=== PATIENT | female | born 1930 | race Caucasian/White ===

== ENCOUNTER 2016-07-16 14:37 | Inpatient (IN) | payer MEDICARE, BC ==
[2016-07-16 15:16] LABS: Hematocrit 34 % (35-47); Hemoglobin 11.1 g/dl (12.0-16.0); Mean Corpuscular HGB Conc 33 g/dl (31-36); Mean Corpuscular Hemoglobin 29 pg (27-31); Mean Corpuscular Volume 89 fL (80-97); Mean Platelet Volume 8 um3 (7.4-10.4); Red Blood Count 3.82 10^6/ul (4.0-5.4); Red Cell Distribution Width 17 % (10.5-15)
[2016-07-16 15:36] LABS: Albumin 3.6 g/dL (3.2-5.2); EGFR African American 44.7 (>60); EGFR Non-African American 34.8 (>60); Globulin 2.8 g/dL (2-4); Potassium 4.4 mmol/L (3.5-5.0); Total Bilirubin 0.5 mg/dL (0.2-1.0); Total Protein 6.4 g/dL (6.4-8.9)
[2016-07-16 15:38] LABS: Troponin I 0.01 ng/mL (<0.04)
--- NOTE | 2016-07-16 15:58 | RAD ---
Indication: Chest pain. Atrial fibrillation. History of CHF and respiratory disease. Comparison: July 11, 2016 Technique: Upright AP 1530 hours Report: Rightward rotation noted. Elevated lung volumes and mild coarsening of the interstitial markings. Linear atelectasis at the LEFT lung base. No suspicious focal pulmonary lesion, pleural effusion, pneumothorax. Mild cardiomegaly. Unremarkable central pulmonary vasculature and mediastinal contours. Mildly tortuous descending thoracic aorta. Contour deformity most consistent with a healed fracture of the RIGHT fifth rib laterally. IMPRESSION: Stigmata of advanced chronic obstructive pulmonary disease. Mild LEFT basilar atelectasis. No evidence for pneumonia or pulmonary edema.
[2016-07-16 16:00] LABS: T4 6.79 g/dL (6.09-12.23)
[2016-07-16 16:01] LABS: TSH (Thyroid Stimulating Horm) 1.92 mcIU/mL (0.34-5.60)
[2016-07-16 16:04] LABS: Urine Bilirubin Negative (Negative); Urine Glucose Negative (Negative); Urine Nitrite Negative (Negative)
[2016-07-16] MEDS ORDERED: Warfarin TAB(*) 3 MG PO SCH (17:00)
[2016-07-16] MEDS ORDERED: Ondansetron INJ* 2 MG/ML VIAL IV PRN (17:15)
[2016-07-16] MEDS ORDERED: Acetaminophen TAB* 325 MG PO PRN (17:15)
[2016-07-16] MEDS ORDERED: LORazepam TAB(*) 0.5 MG PO PRN (17:28)
--- NOTE | 2016-07-16 17:37 | ED ---
Teja Xie Rebecca, scribed for Armando Espinoza MD on 07/16/16 at 1503 . HPI Chest Pain - HPI Summary HPI Summary: Pt is an 86 y/o F BIBA who presents to ED c/o CP. Pain began suddenly at 1345 today while sitting down. Pain has been constant since onset, decreasing in intensity. Pain is located in the upper sternum without radiation, currently ranked 3/10 and characterized as pressure. 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 Denies N/V, SOB or any other symptoms. Prior, similar episodes of CP. - History of Current Complaint Chief Complaint: EDChestPainROMI Hx Obtained From: Patient Onset/Duration: Started Hours Ago - 1.5 hours ago, Still Present Time of Onset: 13:45 Timing: Constant Initial Severity: Moderate Current Severity: Mild Pain Intensity: 3 Pain Scale Used: 0-10 Numeric Chest Pain Location: Upper Sternal Chest Pain Radiates: No Character: Pressure/Squeezing Aggravating Factor(s): Nothing Alleviating Factor(s): NTG 123, OTC Meds - 324 mg ASA Associated Signs and Symptoms: Positive: Chest Pain. Negative: Shortness of Breath, Nausea, Vomiting Related History: Similar Episode/Dx as: - Prior similar episodes - Additional Pertinent History Primary Care Physician: MANNY - Allergy/Home Medications Allergies/Adverse Reactions: Allergies Allergy/AdvReac Type Severity Reaction Status Date / Time Ciprofloxacin [From Cipro] Allergy Unknown Hives Verified 07/16/16 14:46 Codeine Allergy Unknown Hives Verified 07/16/16 14:46 Fentanyl Allergy Unknown Difficulty Verified 07/16/16 14:46 Breathing Penicillins [PCN] Allergy Unknown Hives Verified 07/16/16 14:46 Sulfamethoxazole AdvReac Intermediate Nausea Verified 07/16/16 14:46 w/Trimethoprim [From Bactrim] Home Medications: Home Medications Cholecalciferol [Vitamin D3] 400 unit PO BID 07/16/16 [History Confirmed ] Docusate CAP* [Colace Cap*] 100 - 200 mg PO DAILY 07/16/16 [History Confirmed ] Ipratropium 0.5MG/2.5ML NEB* [Atrovent 0.5 MG NEB.LOKESH*] 0.5 mg INH Q4H PRN 07/16 [History Confirmed 07/16/16] Magnesium [Essential Magnesium] 250 mg PO DAILY 07/16/16 [History Confirmed 10/27] Nitroglycerin TAB 0.4 MG* 0.4 mg SL Q5M PRN 07/16/16 [History Confirmed 07/16/16 ] PMH/Surg Hx/FS Hx/Imm Hx Endocrine/Hematology History: Reports: Hx Anticoagulant Therapy - coumadin for a fib, Hx Blood Disorders - chronic thrombocytopenia, Hx Thyroid Disease - HYPO , Hx Anemia - HX OF Denies: Hx Diabetes Cardiovascular History: Reports: Hx Angina, Hx Congestive Heart Failure, Hx Hypercholesterolemia, Hx Hypertension - WELL CONTROLLED, Other Cardiovascular Problems/Disorders - AFIB Denies: Hx Deep Vein Thrombosis, Hx Pacemaker/ICD Respiratory History: Reports: Hx Asthma, Hx Chronic Obstructive Pulmonary Disease (COPD), Hx Pneumonia - Hospitalized from 10/14/14 - 10/25/14 and 04/26, Hx Seasonal Allergies, Other Respiratory Problems/Disorders - BILAT PNEUMONIA . PT WITH TB 1994 GI History: Reports: Hx Gall Bladder Disease - cholecystectomy 1976, Hx Gastroesophageal Reflux Disease, Hx Ulcer - GASTRIC 1972, Other GI Disorders - partial gastrectomy 1972 History: Reports: Other Problems/Disorders - hysterectomy breast biopsy left Denies: Hx Renal Disease Musculoskeletal History: Reports: Hx Arthritis - BACK, KNEES, Hx Back Problems - laminectomy, Hx Orthopedic Injury - hx r arm, r ankle, toes, Other Musculoskeletal History - back surgery 1995 Sensory History: Reports: Hx Cataracts - removed, Hx Contacts or Glasses Denies: Hx Hearing Aid, Other Sensory Impairments Opthamlomology History: Reports: Hx Cataracts - removed, Hx Contacts or Glasses Denies: Other Sensory Impairments Neurological History: Reports: Other Neuro Impairments/Disorders - PERIPHERAL NEUROPATHY BILAT, PAIN CLINIC PATIENT Psychiatric History: Reports: Hx Anxiety, Hx Depression Denies: Hx Panic Disorder, Hx Suicide Attempt, Hx of Violent Episodes Against Others - Cancer History Cancer Type, Location and Year: breast lumpectomy, no treatment Hx Chemotherapy: No Hx Radiation Therapy: No - Surgical History Surgery Procedure, Year, and Place: T&A A CHILD. groin abscess A CHILD. appendectomy. hysterectomy partial. gastrectomy partial 1972; Carpal Tunnel Surgery Right Wrist by Dr. Chauhan in July 2015. LUMBAR SURGERY 1996. BILAT CATARACTS. open ruel. partial thyroidectomy. right lung bx. right lymph node bx. left leg surgery- vein 2003 [facility] [place]. Left Breast lumpectomy 1982 Hx Anesthesia Reactions: No - Immunization History Date of Tetanus Vaccine: 2013 Date of Influenza Vaccine: Fall 2012 Infectious Disease History: No Infectious Disease History: Reports: Hx Tuberculosis - 1990s, per pt Denies: Hx Hepatitis, Hx Human Immunodeficiency Virus (HIV), Traveled Outside the [place] in Last 30 Days - Family History Known Family History: Positive: Cardiac Disease - Social History Alcohol Use: Rare Hx Substance Use: No Substance Use Type: Reports: None Substance Use Comment - Amount & Last Used: oxycodone and oxymorphone Hx Tobacco Use: Yes Smoking Status (MU): Former Smoker Type: Cigarettes Length of Time of Smoking/Using Tobacco: ON AND OFF 40+YRS Have You Smoked in the Last Year: No Review of Systems Positive: Chest Pain - upper sternal Negative: Shortness Of Breath Negative: Vomiting, Nausea All Other Systems Reviewed And Are Negative: Yes Physical Exam - Summary Physical Exam Summary: VITAL SIGNS: Reviewed. GENERAL: Patient is a well developed and nourished female who is lying comfortable in the stretcher. Patient is not in any acute respiratory distress. HEAD AND FACE: No signs of trauma. No ecchymosis, hematomas or skull depressions. No sinus tenderness. EYES: PERRLA, EOMI x 2, No injected conjunctiva, no nystagmus. EARS: Hearing grossly intact. Ear canals and tympanic membranes are within normal limits. MOUTH: Oropharynx within normal limits. NECK: Supple, trachea is midline, no adenopathy, no JVD, no carotid bruit, no c- spine tenderness, neck with full ROM. CHEST: Symmetric, no tenderness at palpation LUNGS: Clear to auscultation bilaterally. No wheezing or crackles. CVS: Regular rate and rhythm, S1 and S2 present, no murmurs or gallops appreciated. ABDOMEN: Soft, non-tender. No signs of distention. No rebound no guarding, and no masses palpated. Bowel sounds are normal. EXTREMITIES: FROM in all major joints, no edema, no cyanosis or clubbing. NEURO: Alert and oriented x 3. No acute neurological deficits. Speech is normal and follows commands. SKIN: Dry and warm Vital Signs On Initial Exam: Initial Vitals Temp Pulse Resp BP Pulse Ox 98.0 F 65 20 123/60 96 07/16/16 14:46 07/16/16 14:46 07/16/16 14:46 07/16/16 14:46 07/16/16 14:46 Diagnostics - Vital Signs Vital Signs Temp Pulse Resp BP Pulse Ox 07/16/16 14:46 98.0 F 65 20 123/60 96 - Laboratory Lab Results: Lab Results 07/16/16 07/16/16 07/16/16 Range/Units 14:55 14:55 14:55 WBC 5.0 (3.5-10.8) 10^3/ul RBC 3.82 L (4.0-5.4) 10^6/ul Hgb 11.1 L (12.0-16.0) g/dl Hct 34 L (35-47) % MCV 89 (80-97) fL MCH 29 (27-31) pg MCHC 33 (31-36) g/dl RDW 17 H (10.5-15) % Plt Count 176 (150-450) 10^3/ul MPV 8 (7.4-10.4) um3 Neut % (Auto) 73.7 (38-83) % Lymph % (Auto) 17.3 L (25-47) % Cavalier % (Auto) 6.2 (1-9) % Eos % (Auto) 1.0 (0-6) % Baso % (Auto) 1.8 (0-2) % Absolute Neuts (auto) 3.7 (1.5-7.7) 10^3/ul Absolute Lymphs (auto) 0.9 L (1.0-4.8) 10^3/ul Absolute Monos (auto) 0.3 (0-0.8) 10^3/ul Absolute Eos (auto) 0.1 (0-0.6) 10^3/ul Absolute Basos (auto) 0.1 (0-0.2) 10^3/ul Absolute Nucleated RBC 0 10^3/ul Nucleated RBC % 0.1 Sodium 138 (133-145) mmol/L Potassium 4.4 (3.5-5.0) mmol/L Chloride 104 (101-111) mmol/L Carbon Dioxide 32 (22-32) mmol/L Anion Gap 2 (2-11) mmol/L BUN 40 H (6-24) mg/dL Creatinine 1.43 H (0.51-0.95) mg/dL Est GFR ( Amer) 44.7 (>60) Est GFR (Non-Af Amer) 34.8 (>60) BUN/Creatinine Ratio 28.0 H (8-20) Glucose 148 H (70-100) mg/dL Lactic Acid 1.5 (0.5-2.0) mmol/L Calcium 9.0 (8.6-10.3) mg/dL Total Bilirubin 0.50 (0.2-1.0) mg/dL AST 14 (13-39) U/L ALT 11 (7-52) U/L Alkaline Phosphatase 100 (34-104) U/L Troponin I 0.01 (<0.04) ng/mL B-Natriuretic Peptide ( - 100) pg/mL Total Protein 6.4 (6.4-8.9) g/dL Albumin 3.6 (3.2-5.2) g/dL Globulin 2.8 (2-4) g/dL Albumin/Globulin Ratio 1.3 (1-3) TSH 1.92 (0.34-5.60) mcIU/mL Thyroxine (T4) 6.79 (6.09-12.23) g/dL Urine Color Urine Appearance Urine pH (5-9) Ur Specific [place] (1.010-1.030) Urine Protein (Negative) Urine Ketones (Negative) Urine Blood (Negative) Urine Nitrate (Negative) Urine Bilirubin (Negative) Urine Urobilinogen (Negative) Ur Leukocyte Esterase (Negative) Urine Glucose (Negative) 07/16/16 07/16/16 Range/Units 14:55 15:49 WBC (3.5-10.8) 10^3/ul RBC (4.0-5.4) 10^6/ul Hgb (12.0-16.0) g/dl Hct (35-47) % MCV (80-97) fL MCH (27-31) pg MCHC (31-36) g/dl RDW (10.5-15) % Plt Count (150-450) 10^3/ul MPV (7.4-10.4) um3 Neut % (Auto) (38-83) % Lymph % (Auto) (25-47) % Cavalier % (Auto) (1-9) % Eos % (Auto) (0-6) % Baso % (Auto) (0-2) % Absolute Neuts (auto) (1.5-7.7) 10^3/ul Absolute Lymphs (auto) (1.0-4.8) 10^3/ul Absolute Monos (auto) (0-0.8) 10^3/ul Absolute Eos (auto) (0-0.6) 10^3/ul Absolute Basos (auto) (0-0.2) 10^3/ul Absolute Nucleated RBC 10^3/ul Nucleated RBC % Sodium (133-145) mmol/L Potassium (3.5-5.0) mmol/L Chloride (101-111) mmol/L Carbon Dioxide (22-32) mmol/L Anion Gap (2-11) mmol/L BUN (6-24) mg/dL Creatinine (0.51-0.95) mg/dL Est GFR ( Amer) (>60) Est GFR (Non-Af Amer) (>60) BUN/Creatinine Ratio (8-20) Glucose (70-100) mg/dL Lactic Acid (0.5-2.0) mmol/L Calcium (8.6-10.3) mg/dL Total Bilirubin (0.2-1.0) mg/dL AST (13-39) U/L ALT (7-52) U/L Alkaline Phosphatase (34-104) U/L Troponin I (<0.04) ng/mL B-Natriuretic Peptide 433 H ( - 100) pg/mL Total Protein (6.4-8.9) g/dL Albumin (3.2-5.2) g/dL Globulin (2-4) g/dL Albumin/Globulin Ratio (1-3) TSH (0.34-5.60) mcIU/mL Thyroxine (T4) (6.09-12.23) g/dL Urine Color Straw Urine Appearance Clear Urine pH 5.0 (5-9) Ur Specific [place] 1.008 L (1.010-1.030) Urine Protein Negative (Negative) Urine Ketones Negative (Negative) Urine Blood Negative (Negative) Urine Nitrate Negative (Negative) Urine Bilirubin Negative (Negative) Urine Urobilinogen Negative (Negative) Ur Leukocyte Esterase Negative (Negative) Urine Glucose Negative (Negative) Result Diagrams: 07/16/16 14:55 07/16/16 14:55 Lab Statement: Any lab studies that have been ordered have been reviewed, and results considered in the medical decision making process. - Radiology CXR Radiology Interpretation Completed By: Radiologist - Stigmata of advanced chronic obstructive pulmonary disease. Mild LEFT basilar atelectasis. No evidence for pneumonia or pulmonary edema. - EKG 1447 Cardiac Rate: NL - 65 bpm EKG Rhythm: Atrial Fibrillation - [address] Segment: Normal - No ST elevation Chest Pain Course/Dx - Course Assessment/Plan: 86 y/o F present to ED with a CC of having CP. Reports CP as pressure and denies N/V and diaphoresis. Not exacerbated by exertion. Blood work within normal limits except increased BUN and creatinine. Troponin is negative too. EKG shows an atrial fibrillation with rate controlled. Due to her complicated Hx, I disclosed my findings with Dr. Steven to r/o acute cardiac syndrome. Pt is hemodynamically stable and AxO x3. - Chest Pain Differential Diagnosis/HQI/PQRI: ACS, Angina, Chest Wall - Diagnoses Provider Diagnoses: Chest pain r/o ACS - Provider Notifications Discussed Care Of Patient With: Dr. Steven, hospitalist, who agrees to admit pt. Time Discussed With Above Provider: 16:17 Discharge - Discharge Plan Condition: Stable Disposition: ADMITTED TO [facility] documentation as recorded by the Teja lynne Rebecca accurately reflects the service I personally performed and the decisions made by me, Armando Espinoza MD.
[2016-07-16] MEDS: Nitroglycerin 2% OINT* 1 GM PAK TOPICAL SCH (19:55)
--- NOTE | 2016-07-16 20:25 | PN ---
Hospitalist Progress Note called at 191 for elevated trop, ekg ordere stable compared to prio to st changes, patient not reporting chest pain to RN, 1929 discussed case with cardiology, plan for no hep gtt, on asa beta and statin already, will order echo and plan for cath, pt npo after midnight, 1934 to patient bedside to discuss plan of care, lungs cta, heart sounds s1 s2, RRR, patient states she has some discomfort in her left chest, nitro paste ordered and then applied at 1944, pt re-examined at 1999 pt awoken from sleep and states that the pain is now gone, instructed supervisor in charge and bedside RN to call with any chest pain, will sign out case to covering red CLAY for 2099, will continue nitro paste,
[2016-07-16] MEDS: Simethicone TAB* 80 MG TAB.CHEW PO SCH ×2 (20:44→21:07)
[2016-07-16] MEDS: Omeprazole CAP* 20 MG PO SCH (20:45)
[2016-07-16] MEDS: Pregabalin CAP(*) 25 MG PO SCH (20:46)
[2016-07-16] MEDS: OXYMORPHONE PO SCH (20:54)
[2016-07-16] MEDS ORDERED: Atorvastatin* 40 MG TAB PO SCH (21:00)
[2016-07-16] MEDS: oxyCODONE TAB* 5 MG TAB PO PRN (21:14)
--- NOTE | 2016-07-16 22:34 | HP ---
HISTORY AND PHYSICAL: DATE OF ADMISSION: 07/16/16 ADDENDUM: Ms. Saldana is an 86-year-old female with history of chronic pain and atrial fibrillation, on Coumadin who presents complaining of chest pain. Her initial workup includes negative troponin and an unremarkable EKG. The patient is going to be placed on overnight observation and most likely stress test in the morning. For further details of the patient's presentation and plan, please see history and physical dictated by David Estes NP, on 07/16/16, with which I agree. [id number]/[facility] #: [id number]
--- NOTE | 2016-07-16 22:51 | HP ---
HISTORY AND PHYSICAL: DATE OF ADMISSION: 07/16/16 PRIMARY CARE PROVIDER: Dr. Thompson ATTENDING PHYSICIAN WHILE IN THE HOSPITAL: Dr. Becky Steven* (report being dictated by Asael Estes NP). CHIEF COMPLAINT: Chest pain. HISTORY OF PRESENT ILLNESS: Ms. Saldana is an 86-year-old female patient, who has a history of AFib and COPD. She wears O2 at night, history of chronic pain , hypothyroidism, CHF, last EF 55%. 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 She comes into the ER today stating that she was at Dr. Chauhan's office for evaluation of carpal tunnel procedure and while she was sitting in the waiting room, she developed a sudden onset of chest pain across the top front of her chest. She says the pain was constant in nature. She was unable to characterize the pain. She says she had not been having chest discomfort leading up to this and to her knowledge, she had been doing well. She could exert and not get chest pain. The pain today was nonexertional. Her name was being called and her friend went up and said that she was having chest discomfort, so she came into the ER. She said the pain was alleviated after nitro here in the ER and when O2 was placed. She denies having any associated symptoms such as diaphoresis, shortness of breath, or nausea. She says the pain did go up into her jaw, but did not go down her arm and she said the pain was constant in nature. It started around 2 o'clock this afternoon. The patient came into the ER after being sent here by Dr. Chauhan and her office staff via EMS. She was evaluated and there was concern that this could represent acute coronary syndrome. She does admit to having a recent travel. She traveled down to [place] for her holidays. She said she has bilateral leg pain, but this is chronic and constant. She denies having any worsening swelling. She says that she has not had any recent URI symptoms, but because of the concern for ACS, hospitalist service was asked to evaluate for admission. PAST MEDICAL HISTORY: Significant for: 1. AFib. 2. COPD, on 2 L at night. 3. Chronic pain. 4. Hypothyroidism. 5. CHF, diastolic, last EF 55%. 6. Thrombocytopenia in the past. 7. Neuropathy. 8. Hypertension. 9. History of CAD. Last cath in 2010 showed a 50% noncritical stenosis at the proximal segment of the LAD. PAST SURGICAL HISTORY: 1. She has had a partial gastrectomy. 2. Partial thyroidectomy. 3. Laparoscopic cholecystectomy. 4. Laminectomy. 5. Carpal tunnel. 6. Cardiac catheterization with noncritical CAD. HOME MEDICATIONS: According to the list in the computer, we are updating this now as we do not have an accurate list included: 1. Oxycodone 15 mg every 4 hours as needed. 2. Warfarin 1.5 mg every 72 hours. 3. Warfarin 3 mg p.o. every other day. 4. Spiriva 1 capsule inhaled daily. 5. Aldactone 25 mg p.o. daily. 6. Simethicone 80 mg p.o. daily. 7. Actonel 35 mg weekly. 8. Lyrica 25 mg p.o. 4 times a day. 9. Opana 15 mg p.o. every 12 hours. 10. Prilosec 40 mg p.o. b.i.d. 11. Nitro 0.4 mg sublingual q.5 minutes x3 p.r.n. chest pain. 12. Metoprolol 25 mg daily. 13. Linzess 290 mcg p.o. daily. 14. Synthroid 25 mcg p.o. daily. 15. Xopenex 2 puffs inhaled 4 times a day as needed. 16. Ativan 0.5 mg p.o. b.i.d. as needed. 17. Lasix 20 mg daily. 18. Diltiazem 120 mg p.o. daily. 19. Vitamin D3 1000 units p.o. daily. 20. Calcium 500 mg p.o. daily. 21. Symbicort 1 puff inhaled b.i.d. 22. Aspirin 81 mg daily. ALLERGIES TO MEDICATIONS: Include CIPRO, CODEINE, FENTANYL, PENICILLIN, and BACTRIM. FAMILY HISTORY: Mother had brain tumor and a heart attack. Father had CHF. SOCIAL HISTORY: She lives alone. She is a former smoker. She does not drink alcohol. She does not wish to appoint a surrogate decision maker at this point. REVIEW OF SYSTEMS: There is no documented fever. She denied having any significant weight change. There was no double vision. There was no ear discharge. She denies having any rhinorrhea. No sore throat. No thyroid enlargement. There is chest pain from my HPI. There is no abdominal pain. There is no orthopnea or nocturnal dyspnea. No nausea, no vomiting, no dysuria , no frequency, no loss of consciousness, no pruritus, and no skin ulceration. Review of 14 systems completed, all others negative. PHYSICAL EXAMINATION GENERAL: At this time, Ms. Saldana is an 86-year-old female patient. She does not appear to be in any acute distress. She is awake. She is alert. She is oriented x3. VITAL SIGNS: Blood pressure 123/63 with a pulse 65, respirations 20, O2 sat 96% , temperature 98.0. HEENT: Head atraumatic, normocephalic. Eyes: EOMs are intact. Sclerae anicteric and not pale. Throat: Oral mucosa appears to be moist, no oropharyngeal erythema. NECK: Supple. LUNGS: Clear to auscultation bilaterally. No wheezes, rales, or rhonchi. HEART: Sounds S1 and S2, irregularly irregular rate. No murmurs, rubs, or gallops. ABDOMEN: Soft, flat, and nontender. Bowel sounds present. EXTREMITIES: Pulses 2+ throughout. Able to move all 4 extremities with 5/5 strength. NEUROLOGIC: The patient is awake, alert, oriented x3. Tongue midline, consulting services manager are equal. No gross focal deficits. SKIN: Grossly intact. LABORATORY DATA: Today revealed a WBC of 5.0, RBC of 3.82, hemoglobin 11.1, hematocrit 34, platelet count 179. Sodium 138, potassium 4.4, chloride 104, bicarb 32, BUN 40, creatinine 1.43, glucose 148, lactic 1.5, calcium 9.0, total bili 0.5, AST 14, ALT 11, alk phos 100, troponin 0.01. BNP of 433, albumin of 3.6, and TSH of 1.92. Urine was negative. She did have a chest x-ray obtained today, which showed no acute findings. I did not appreciate any infiltrates or effusion. Radiology read it as stigmata of advanced chronic pulmonary disease. Mild left basilar atelectasis. No evidence for pneumonia or pulmonary edema. There was an EKG obtained today, which showed atrial fibrillation, rate of 65. She had no ST elevations or T-wave inversions. Reviewed to the previous EKG, it is similar. Old medical records were reviewed. She had a heart catheterization in 2010, which showed 50% stenosis in the proximal LAD. Last echo showed an EF of 55%. Old medical records reviewed. ASSESSMENT AND PLAN: Ms. Saldana is an 86-year-old female patient presenting to the emergency department today with complaints of chest discomfort, sudden onset. She will admitted to the observation status for: 1. Chest pain. Again, etiology at this point is unclear. She did recently have a travel. I am going to check a D-dimer. If it is negative, I will not pursue further workup. If it is grossly positive, I will consider CTA or V/Q scan. I think the other risk that we need to rule out is cardiac in nature. She did have the chest pain. I am going to cycle her troponins. I am going to go ahead and get serial EKGs and check lipids in the morning. In addition to this, we will go ahead and get a stress test. She is already on an aspirin and we will continue this medication. If her troponins elevate, then we will obvious get a Cardiology consult, echo in the morning and place her on appropriate medical therapy. She did state that she would wish to pursue a cath if she had an abnormal stress test. 2. Atrial fibrillation, rate is controlled. Continue meds as prescribed. 3. Chronic obstructive pulmonary disease. Continue on current medical regimen. Does not appear to be in exacerbation. 4. Chronic pain. Continue meds as prescribed. 5. Hypothyroidism. Continue her meds as prescribed. 6. History of congestive heart failure. Does not appear to be in active failure. We will continue to follow. 7. Thrombocytopenia. Platelets are stable, we will follow. 8. Neuropathy. Continue meds as prescribed. 9. Hypertension. Continue meds as prescribed. 10. Coronary artery disease. She is on an aspirin currently. We will continue her aspirin, p.r.n. nitro if needed, diltiazem. Continue meds as prescribed. 11. DVT prophylaxis. She is on Coumadin. INR is pending. I just put her on SCDs for the time being. 12. Code status, full code. 13. Fluids, electrolytes, and nutrition. She can have a heart healthy diet. TIME SPENT: Time spent on this admission 60 minutes, greater than half the time was spent [id number] with the patient obtaining my history and physical, the other half time was spent going over the plan of care with the patient and implementing plan of care. I did discuss the plan of care with my attending, Dr. Steven; she is in agreement. ASAEL ESTES NP ADDENDUM TO HISTORY AND PHYSICAL: DATE OF ADMISSION: 07/16/16 ADDENDUM: Ms. Saldana is an 86-year-old female with history of chronic pain and atrial fibrillation, on Coumadin who presents complaining of chest pain. Her initial workup includes negative troponin and an unremarkable EKG. The patient is going to be placed on overnight observation and most likely stress test in the morning. For further details of the patient's presentation and plan, please see history and physical dictated by Asael Estes NP, on 07/16/16, with which I agree. Becky Steven MD CC: Dr. Thompson* [id number]/[facility] #: [id number] #: [id number] [facility]
[2016-07-16] MEDS: Mometasone/Formoter 200/5 MDI INH SCH (23:09)
--- NOTE | 2016-07-16 23:09 | RAD ---
INDICATION: RIGHT lower extremity pain and edema. Distal calf redness. COMPARISON: April 23, 2014 TECHNIQUE: Christian scale, color Doppler, and spectral analysis of the deep veins of the RIGHT lower extremity. Vessel compression, phasicity, and augmentation assessed. REPORT: The RIGHT common femoral, great saphenous, profunda femoral, femoral, popliteal, peroneal, and posterior tibial veins are patent. Conspicuity of the peroneal veins is limited. RIGHT lower extremity subcutaneous edema most prominent from the level of the knee distal. No loculated fluid collection evident. Patency of the contralateral common femoral vein documented. IMPRESSION: No evidence for RIGHT lower extremity deep venous thrombosis.
[2016-07-17] MEDS: Nitroglycerin 2% OINT* 1 GM PAK TOPICAL SCH ×3 (02:47→13:43)
[2016-07-17] MEDS: Nitro Patch/OINT Remove PATCH OFF SCH ×3 (02:53→14:22)
[2016-07-17 05:31] LABS: Hematocrit 32 % (35-47); Hemoglobin 9.9 g/dl (12.0-16.0); Mean Corpuscular HGB Conc 32 g/dl (31-36); Mean Corpuscular Hemoglobin 28 pg (27-31); Mean Corpuscular Volume 88 fL (80-97); Mean Platelet Volume 8 um3 (7.4-10.4); Red Blood Count 3.58 10^6/ul (4.0-5.4); Red Cell Distribution Width 17 % (10.5-15); White Blood Count 4.5 10^3/ul (3.5-10.8)
[2016-07-17] MEDS: OXYMORPHONE PO SCH ×2 (05:37→17:19)
[2016-07-17 05:46] LABS: BUN/Creatinine Ratio 28.6 (8-20); Calcium 8.2 mg/dL (8.6-10.3); EGFR African American 55.3 (>60); HDL Cholesterol 62.7 mg/dL; Potassium 3.9 mmol/L (3.5-5.0)
[2016-07-17] MEDS ORDERED: Levothyroxine TAB* 25 MCG TAB PO SCH (06:00)
[2016-07-17] MEDS ORDERED: Spironolactone TAB* 25 MG PO SCH (09:00)
[2016-07-17] MEDS ORDERED: Furosemide TAB* 40 MG PO SCH (09:00)
[2016-07-17] MEDS ORDERED: Spiriva Inhaler DEVICE* 1 EACH DEVICE INH ONE (09:00)
[2016-07-17] MEDS ORDERED: Docusate CAP* 100 MG PO SCH (09:00)
[2016-07-17] MEDS ORDERED: Aspirin EC Low Dose* 81 MG TAB.EC PO SCH (09:00)
[2016-07-17] MEDS ORDERED: Diltiazem CD CAP* 120 MG PO SCH (09:00)
[2016-07-17] MEDS ORDERED: Metoprolol Succinate XL TAB* 25 MG PO SCH (09:00)
[2016-07-17] MEDS ORDERED: Tiotropium CAP.INH* CAP.INH/18 MCG (USE ORDER SET !) INH SCH (09:00)
[2016-07-17] MEDS: Mometasone/Formoter 200/5 MDI INH SCH (09:15)
[2016-07-17] MEDS: oxyCODONE TAB* 5 MG TAB PO PRN (10:15)
[2016-07-17] MEDS: Simethicone TAB* 80 MG TAB.CHEW PO SCH ×3 (10:16→17:18)
--- NOTE | 2016-07-17 12:47 | RAD ---
HISTORY: Chest pain, coronary artery disease, shortness of breath, hypertension COMPARISONS: February 20, 2015 TECHNIQUE: A 1 day stress/rest myocardial perfusion study was performed, with pharmacologic stress. The stress portion was monitored by Dr. Nicholson. Gated SPECT imaging was performed, without CT-based attenuation correction secondary to patient physical inability DOSE: Stress: Technetium 99m tetrofosmin, 25.14 millicuries, injected at 11:23 AM on July 17, 2016 Rest: Technetium 99m tetrofosmin, 10.1 millicuries, injected at 9:25 AM on July 17, 2016 Pharmacologic agent: Lexiscan FINDINGS: CARDIAC MONITORING: No EKG changes of ischemia with stress EF: 81 % TID: 1.11 MOTION: Normal motion, with normal wall thickening. PERFUSION: There is a small inferior-apical reversible perfusion defect OTHER: None IMPRESSION: SMALL AREA OF REVERSIBLE HYPOPERFUSION OF THE INFERIOR WALL TOWARDS THE APEX CONCERNING FOR SMALL AREA OF ISCHEMIA ASSESSMENT: LOW RISK. Based on imaging criteria from ACC/AHA 2002. Guideline Update for the Management of Patient's with Chronic Stable Angina, table 23. Noninvasive Risk Stratification.
--- NOTE | 2016-07-17 13:18 | ECHO ---
Patient: JOHN PAUL LAURENT [facility] Rec#: [id number] : 1930 Date: 07/17/2016 Age: 86y Height: 162.6 cm / 64.0 in Weight: 68 kg / 149.9 lbs Sex: F BSA: 1.7 Room#: 439 Admit Date#: 07/16/2016 Type: Inpatient Referring: David Estes NP Reading: Jonatan Madrigal MD Concession Cashier: Monique Randolph RN RDCS CC: Jose Thompson MD CC: Kylee Montes MD Transthoracic Echocardiogram Indication: Chest pain BP: 117/58 HR: 56 Rhythm: A-Fib Findings History: A. fib, CAD, HTN, CHF, hypothyroidism, COPD, former smoker Technical Comments: The study quality is fair. The study is technically limited due to the patient's history of COPD. The study is technically limited due to the patient's smoking history. Completed at 0850. Left Ventricle: The left ventricular chamber size is normal. Mild concentric left ventricular hypertrophy is observed. There is increased basal septal hypertrophy noted without evidence of an increased gradient across the left ventricular outflow tract. Global left ventricular wall motion and contractility are within normal limits. There is normal left ventricular systolic function. The estimated ejection fraction is 60-65%. The assessment of diastolic function is non-diagnostic. Left Atrium: The left atrium is moderate to severely dilated. Right Ventricle: The right ventricular chamber size and systolic function are within normal limits. Right Atrium: The right atrium is moderately dilated. A prominent chiari network is noted in the right atrium. Aortic Valve: The aortic valve is trileaflet. The aortic valve leaflets are mildly thickened. There is aortic annular calcification. There is no evidence of aortic regurgitation. There is no evidence of aortic stenosis. Mitral Valve: There is mitral annular calcification. The mitral valve leaflets are mildly thickened. There is mild to moderate mitral regurgitation. There is borderline mitral stenosis. The mean gradient across the mitral valve is 2 mmHg. The mitral valve area, by pressure half time, is calculated at 2.5 cm2. Tricuspid Valve: The tricuspid valve leaflets are normal. There is moderate to severe tricuspid regurgitation. There is evidence of moderate pulmonary hypertension. Pulmonic Valve: The pulmonic valve appears normal. There is a trace pulmonic regurgitation. There is no pulmonic stenosis. Pericardium: There is no significant pericardial effusion. A pericardial fat pad is visualized. Aorta: There is no dilatation of the ascending aorta. There is no dilatation of the aortic arch. The aortic root is normal in size. Pulmonary Artery: The main pulmonary artery appears normal. Venous: The inferior vena cava is dilated. There is an approximate 50% respiratory change in the inferior vena cava dimension. Conclusions The study quality is fair. Mild concentric left ventricular hypertrophy is observed. The estimated ejection fraction is 60-65%. The right atrium is moderately dilated. The aortic valve leaflets are mildly thickened. There is mild to moderate mitral regurgitation. There is moderate to severe tricuspid regurgitation. There is evidence of moderate pulmonary hypertension. Similar to 08/2015 except for the increase in TR from moderate then to moderate/severe now Measurements Name Value Normal Range RVDdMajor (2D) 4 cm (2.2 - 4.4) RAd ISD 4CH 6.2 cm (3.4 - 4.9) RA (A4C)W 4.6 cm (2.9 - 4.6) IVSd (2D) 1.1 cm (0.6 - 1) LVPWd (2D) 1.1 cm (0.6 - 1) LVIDd (2D) 4.2 cm (3.6 - 5.4) LVIDs (2D) 2.8 cm - LV FS (2D) 33 % (25 - 45) Aortic Annulus 1.9 cm (1.4 - 2.6) Ao root diameter (2D) 2.6 cm (2.1 - 3.5) Ascending Ao 3 cm (2.1 - 3.4) Aortic arch 2.5 cm (1.8 - 3.4) LA dimension (AP) 2D 4.5 cm (2.3 - 3.8) LAd ISD 4CH 6.6 cm (2.9 - 5.3) LA ISD 4CH W 5 cm (2.5 - 4.5) Name Value Normal Range LA ESV SP 4CH (A/L) 103 ml - LA ESV SP 2CH (A/L) 107 ml - LA ESV BP (A/L) 109 ml - LA ESV BP (A/L) index 62.7 ml/m2 - LA ESV SP 4CH (MOD) 100 ml - LA ESV SP 2CH (MOD) 99 ml - Name Value Normal Range MV E-wave Vmax 1.1 m/sec - MV deceleration time 135 msec - LV septal e' Vmax 0.07 m/sec - LV lateral e' Vmax 0.09 m/sec - LV E:e' septal ratio 15.7 ratio - LV E:e' lateral ratio 12.2 ratio - Name Value Normal Range AV Vmax 1.6 m/sec - AV peak gradient 10 mmHg - LVOT Vmax 0.99 m/sec - Name Value Normal Range MV Vmax 1.4 m/sec - MV VTI 34.7 cm - MV peak gradient 8 mmHg - MV mean gradient 2 mmHg - MV PHT 89 msec - MVA (PHT) 2.5 cm2 - Name Value Normal Range TR Vmax 2.9 m/sec - TR peak gradient 34 mmHg - RAP 15 mmHg - RVSP 49 mmHg - IVC diameter 2.5 cm - Name Value Normal Range PV Vmax 0.78 m/sec -
[2016-07-17] MEDS: Pregabalin CAP(*) 25 MG PO SCH ×3 (13:35→17:18)
[2016-07-17] MEDS: Omeprazole CAP* 20 MG PO SCH (13:42)
[2016-07-17 16:37] VITALS: BP 110/55
--- NOTE | 2016-07-17 16:52 | PN ---
Subjective Date of Service: 07/17/16 Interval History: Pt is feeling ok. She denies any further chest pain today. She is agreeable to starting low dose imdur to see if it helps her symptoms. Objective Active Medications: Acetaminophen (Tylenol Tab*) 650 mg PO Q4H PRN PRN Reason: FEVER/PAIN Aspirin (Aspirin Ec Low Dose*) 81 mg PO DAILY [facility] Last Admin: 07/17/16 13:42 Dose: 81 mg Atorvastatin Calcium (Lipitor*) 40 mg PO 2100 [facility] Last Admin: 07/16/16 20:45 Dose: 40 mg Diltiazem HCl (Cardizem Cd Cap*) 120 mg PO QAM [facility] Last Admin: 07/17/16 13:41 Dose: 120 mg Docusate Sodium (Colace Cap*) 200 mg PO DAILY [facility] Last Admin: 07/17/16 13:42 Dose: 200 mg Furosemide (Lasix Tab*) 40 mg PO QAM [facility] Last Admin: 07/17/16 13:42 Dose: 40 mg Levothyroxine Sodium (Synthroid Tab*) 25 mcg PO 0600 [facility] Last Admin: 07/17/16 05:35 Dose: 25 mcg Linaclotide (Linzess (Nf)) 290 mcg PO DAILY [facility] Last Admin: 07/17/16 09:01 Dose: Not Given Lorazepam (Ativan Tab(*)) 0.5 mg PO BID PRN PRN Reason: ANXIETY Last Admin: 07/17/16 04:26 Dose: 0.5 mg Metoprolol Succinate (Toprol Xl Tab*) 25 mg PO QAM [facility] Last Admin: 07/17/16 13:42 Dose: 25 mg Mometasone Furoate/Formoterol Fumar (Dulera 200/5 Mdi*) 1 puff INH BID [facility] PRN Reason: Protocol Last Admin: 07/17/16 09:15 Dose: 1 puff Nitroglycerin (Nitroglycerin 2% Oint*) 1 inch TOPICAL Q6H [facility] Last Admin: 07/17/16 13:43 Dose: 1 inch Omeprazole (Prilosec Cap*) 40 mg PO BID [facility] Last Admin: 07/17/16 13:42 Dose: 40 mg Ondansetron HCl (Zofran Inj*) 4 mg IV Q6H PRN PRN Reason: NAUSEA Oxycodone HCl (Roxycodone Tab*) 5 mg PO Q4H PRN PRN Reason: PAIN Last Admin: 07/17/16 10:15 Dose: 5 mg Oxymorphone HCl (Opana Er (Nf)) 15 mg PO Q12H [facility] Last Admin: 07/17/16 05:37 Dose: Not Given Pharmacy Profile Note (Nitro Patch/Oint Remove*) 1 note PATCH OFF Q6H [facility] Last Admin: 07/17/16 14:22 Dose: Not Given Pregabalin (Lyrica Cap(*)) 25 mg PO QID [facility] Last Admin: 07/17/16 13:41 Dose: 25 mg Simethicone (Mylicon*) 80 mg PO PCHS [facility] Last Admin: 07/17/16 13:42 Dose: 80 mg Spironolactone (Aldactone Tab*) 25 mg PO QAM [facility] Last Admin: 07/17/16 13:42 Dose: 25 mg Tiotropium [place] (Spiriva Cap.Inh*) 1 cap INH DAILY [facility] Last Admin: 07/17/16 09:15 Dose: 1 cap.inh Warfarin Sodium (Coumadin Tab(*)) 1.5 mg PO Q72H [facility] PRN Reason: Protocol Last Admin: 07/16/16 20:43 Dose: 1.5 mg Warfarin Sodium (Coumadin Tab(*)) 3 mg PO Q72H [facility] PRN Reason: Protocol Warfarin Sodium (Coumadin Tab(*)) 3 mg PO Q72H [facility] Vital Signs 07/16/16 07/16/16 07/16/16 20:46 21:14 21:40 Temperature Pulse Rate Respiratory 18 18 18 Rate Blood Pressure (mmHg) O2 Sat by Pulse Oximetry 07/16/16 07/16/16 07/16/16 22:46 23:14 23:37 Temperature 97.7 F Pulse Rate 54 Respiratory 18 16 16 Rate Blood Pressure 102/56 (mmHg) O2 Sat by Pulse 99 Oximetry 07/17/16 07/17/16 07/17/16 00:00 03:29 04:26 Temperature 97.9 F Pulse Rate 54 Respiratory 16 16 Rate Blood Pressure 117/58 (mmHg) O2 Sat by Pulse 99 100 Oximetry 07/17/16 07/17/16 07/17/16 06:26 08:00 09:17 Temperature Pulse Rate 56 Respiratory 16 20 16 Rate Blood Pressure (mmHg) O2 Sat by Pulse 97 Oximetry 07/17/16 07/17/16 07/17/16 10:15 12:15 13:41 Temperature Pulse Rate Respiratory 16 16 16 Rate Blood Pressure (mmHg) O2 Sat by Pulse Oximetry 07/17/16 07/17/16 15:29 15:38 Temperature 97.8 F Pulse Rate 64 Respiratory 16 18 Rate Blood Pressure 110/55 (mmHg) O2 Sat by Pulse 96 Oximetry Oxygen Devices in Use Now: Nasal Cannula - 2L-96% Appearance: Elderly female sitting up in bed, NAD Eyes: No Scleral Icterus Ears/Nose/Mouth/Throat: Mucous Membranes Moist Respiratory: Symmetrical Chest Expansion and Respiratory Effort, Clear to Auscultation - diminished breath sounds in all lung keith Cardiovascular: NL Sounds; No Murmurs; No JVD, RRR Abdominal: NL Sounds; No Tenderness; No Distention Extremities: No Clubbing, Cyanosis Skin: No Rash or Ulcers, No Nodules or Sclerosis Neurological: Alert and Oriented x 3 Result Diagrams: 07/17/16 05:26 07/17/16 05:26 Additional Lab and Data: Lab Results 07/16/16 07/16/16 07/16/16 Range/Units 14:55 14:55 14:55 WBC 5.0 (3.5-10.8) 10^3/ul RBC 3.82 L (4.0-5.4) 10^6/ul Hgb 11.1 L (12.0-16.0) g/dl Hct 34 L (35-47) % MCV 89 (80-97) fL MCH 29 (27-31) pg MCHC 33 (31-36) g/dl RDW 17 H (10.5-15) % Plt Count 176 (150-450) 10^3/ul MPV 8 (7.4-10.4) um3 Neut % (Auto) 73.7 (38-83) % Lymph % (Auto) 17.3 L (25-47) % Kimble % (Auto) 6.2 (1-9) % Eos % (Auto) 1.0 (0-6) % Baso % (Auto) 1.8 (0-2) % Absolute Neuts (auto) 3.7 (1.5-7.7) 10^3/ul Absolute Lymphs (auto) 0.9 L (1.0-4.8) 10^3/ul Absolute Monos (auto) 0.3 (0-0.8) 10^3/ul Absolute Eos (auto) 0.1 (0-0.6) 10^3/ul Absolute Basos (auto) 0.1 (0-0.2) 10^3/ul Absolute Nucleated RBC 0 10^3/ul Nucleated RBC % 0.1 Sodium 138 (133-145) mmol/L Potassium 4.4 (3.5-5.0) mmol/L Chloride 104 (101-111) mmol/L Carbon Dioxide 32 (22-32) mmol/L Anion Gap 2 (2-11) mmol/L BUN 40 H (6-24) mg/dL Creatinine 1.43 H (0.51-0.95) mg/dL Est GFR ( Amer) 44.7 (>60) Est GFR (Non-Af Amer) 34.8 (>60) BUN/Creatinine Ratio 28.0 H (8-20) Glucose 148 H (70-100) mg/dL Lactic Acid 1.5 (0.5-2.0) mmol/L Calcium 9.0 (8.6-10.3) mg/dL Total Bilirubin 0.50 (0.2-1.0) mg/dL AST 14 (13-39) U/L ALT 11 (7-52) U/L Alkaline Phosphatase 100 (34-104) U/L Troponin I 0.01 (<0.04) ng/mL B-Natriuretic Peptide ( - 100) pg/mL Total Protein 6.4 (6.4-8.9) g/dL Albumin 3.6 (3.2-5.2) g/dL Globulin 2.8 (2-4) g/dL Albumin/Globulin Ratio 1.3 (1-3) TSH 1.92 (0.34-5.60) mcIU/mL Thyroxine (T4) 6.79 (6.09-12.23) g/dL Urine Color Urine Appearance Urine pH (5-9) Ur Specific Francisco (1.010-1.030) Urine Protein (Negative) Urine Ketones (Negative) Urine Blood (Negative) Urine Nitrate (Negative) Urine Bilirubin (Negative) Urine Urobilinogen (Negative) Ur Leukocyte Esterase (Negative) Urine Glucose (Negative) 07/16/16 07/16/16 Range/Units 14:55 15:49 WBC (3.5-10.8) 10^3/ul RBC (4.0-5.4) 10^6/ul Hgb (12.0-16.0) g/dl Hct (35-47) % MCV (80-97) fL MCH (27-31) pg MCHC (31-36) g/dl RDW (10.5-15) % Plt Count (150-450) 10^3/ul MPV (7.4-10.4) um3 Neut % (Auto) (38-83) % Lymph % (Auto) (25-47) % Kimble % (Auto) (1-9) % Eos % (Auto) (0-6) % Baso % (Auto) (0-2) % Absolute Neuts (auto) (1.5-7.7) 10^3/ul Absolute Lymphs (auto) (1.0-4.8) 10^3/ul Absolute Monos (auto) (0-0.8) 10^3/ul Absolute Eos (auto) (0-0.6) 10^3/ul Absolute Basos (auto) (0-0.2) 10^3/ul Absolute Nucleated RBC 10^3/ul Nucleated RBC % Sodium (133-145) mmol/L Potassium (3.5-5.0) mmol/L Chloride (101-111) mmol/L Carbon Dioxide (22-32) mmol/L Anion Gap (2-11) mmol/L BUN (6-24) mg/dL Creatinine (0.51-0.95) mg/dL Est GFR ( Amer) (>60) Est GFR (Non-Af Amer) (>60) BUN/Creatinine Ratio (8-20) Glucose (70-100) mg/dL Lactic Acid (0.5-2.0) mmol/L Calcium (8.6-10.3) mg/dL Total Bilirubin (0.2-1.0) mg/dL AST (13-39) U/L ALT (7-52) U/L Alkaline Phosphatase (34-104) U/L Troponin I (<0.04) ng/mL B-Natriuretic Peptide 433 H ( - 100) pg/mL Total Protein (6.4-8.9) g/dL Albumin (3.2-5.2) g/dL Globulin (2-4) g/dL Albumin/Globulin Ratio (1-3) TSH (0.34-5.60) mcIU/mL Thyroxine (T4) (6.09-12.23) g/dL Urine Color Straw Urine Appearance Clear Urine pH 5.0 (5-9) Ur Specific [place] 1.008 L (1.010-1.030) Urine Protein Negative (Negative) Urine Ketones Negative (Negative) Urine Blood Negative (Negative) Urine Nitrate Negative (Negative) Urine Bilirubin Negative (Negative) Urine Urobilinogen Negative (Negative) Ur Leukocyte Esterase Negative (Negative) Urine Glucose Negative (Negative) Assess/Plan/Problems-Billing Ms Saldana is an 86 yo F who has a h/o COPD, afib, hypothyroidism, diastolic CHF , HTN and chronic pain who presented to the ER with c/o chest pain. - Patient Problems (1) Chest pain Current Visit: Yes Status: Acute Onset Date: 02/02/14 Code(s): R07.9 - CHEST PAIN, UNSPECIFIED SNOMED Code(s): 73650230 Comment: No further chest pain. Likely non-cardiac. The patient was seen by Dr. Madrigal who was not sure that her chest pain is cardiac. Will start imdur to see if it helps her symptoms. Initial trop was positive however 2 hr later the trop was completely negative making me think the initial trop was a false read. She will follow up with Dr. Montes in the next 3-4 weeks. (2) Diastolic CHF Current Visit: Yes Status: Acute Code(s): I50.30 - UNSPECIFIED DIASTOLIC ( CONGESTIVE) HEART FAILURE SNOMED Code(s): 679724612 Comment: No evidence of fluid overload. Continue home diuretics. (3) COPD (chronic obstructive pulmonary disease) Current Visit: Yes Status: Chronic Code(s): J44.9 - CHRONIC OBSTRUCTIVE PULMONARY DISEASE, UNSPECIFIED SNOMED Code(s): 37646197 Comment: No signs of exacerbation. Continue home bronchodilators and oxygen. (4) Atrial fibrillation Current Visit: Yes Status: Chronic Code(s): I48.91 - UNSPECIFIED ATRIAL FIBRILLATION SNOMED Code(s): 17282537 Comment: Rate controlled with diltiazem and metoprolol XL. INR is therapeutic. Continue current dose of coumadin. (5) Hypothyroidism Current Visit: Yes Status: Acute Code(s): E03.9 - HYPOTHYROIDISM, UNSPECIFIED SNOMED Code(s): 63124624 Comment: Continue current dose of synthroid. (6) DVT prophylaxis Current Visit: Yes Status: Acute Onset Date: 10/14/14 Code(s): TUQ3090 - SNOMED Code(s): 587433076 Comment: Therapeutic INR (7) Full code status Current Visit: Yes Status: Acute Onset Date: 10/14/14 Code(s): Z78.9 - OTHER SPECIFIED HEALTH STATUS SNOMED Code(s): 703590609 Status and Disposition: d/c home
[2016-07-17] MEDS ORDERED: Warfarin TAB(*) 3 MG PO SCH (17:00)
[2016-07-17] MEDS ORDERED: Regadenoson* 0.4 MG/5 ML SYRINGE ONE (17:16)
--- NOTE | 2016-07-17 19:56 | CONS ---
CC: Jonatan Madrigal MD; Dr. Thompson CARDIOLOGY CONSULTATION: DATE OF CONSULT: 07/17/16 REASON FOR CONSULT: Chest pain. HISTORY OF PRESENT ILLNESS: This is a very pleasant 86-year-old woman with a history of moderate LAD disease based on a cath in 2010. She occasionally gets chest pain about once a month, usually when lying down. Usually it is promptly relieved with the nitro. No associated gas or diaphoresis. She said yesterday she was sitting in a doctor's waiting room and developed chest tightness radiating to her left neck. She took a nitro without relief. There was no associated gas, diaphoresis or shortness of breath. Because of the those symptoms, she was taken to the emergency room and apparently her symptoms resolved over the course of an hour. She denies any syncope or near syncope. She is limited by neuropathy and only walks short distances in her house. She walks from her bedroom to her kitchen without a problem but does not go for more extensive walks. She denies any previous heart attacks, murmurs, or rheumatic fever. She does have a history of tobacco use, discontinued 22 years ago. The patient reports if she does get chest pain about once a month, it usually goes away promptly with nitroglycerin and usually occurs in the setting of lying down at night. She does not have it with walking or exertion. PAST MEDICAL HISTORY: She has a history of AFib, chronic anticoagulation, COPD , uses oxygen at night, hypothyroidism, chronic pain syndrome, diastolic heart failure with EF of 55% in the past, past thrombocytopenia, hypertension. She denies diabetes or hyperlipidemia. PAST SURGICAL HISTORY: Includes: 1. Gallbladder resection. 2. Hysterectomy. 3. Carpal tunnel. 4. Partial thyroidectomy. 5. Back surgery. 6. Laminectomy. 7. Partial gastrectomy. MEDICATIONS: Include: 1. Acetaminophen. 2. Aspirin 81 mg a day. 3. Atorvastatin 40 mg a day. 4. Diltiazem 120 mg a day. 5. Colace 200 mg a day. 6. Furosemide 40 mg a day. 7. Levothyroxine 25 mcg a day. 8. Linzess 290 mcg daily. 9. Ativan 0.5 mg b.i.d. p.r.n. 10. Metoprolol 25 mg q.a.m. 11. Dulera 200/5 one puff b.i.d. 12. Nitroglycerin ointment one to the chest wall q.6. 13. Omeprazole 40 mg b.i.d. 14. Oxymorphone 15 mg q.12 h. 15. Oxycodone p.r.n. 16. Lyrica 25 mg t.i.d. 17. Mylicon 80 mg at the hour of sleep. 18. Spironolactone 25 mg a day. 19. Spiriva 1 cap a day. 20. Warfarin. Similar to her home meds except for the nitro paste. ALLERGIES: Include CIPRO, CODEINE, FENTANYL, PENICILLIN, and BACTRIM. SOCIAL HISTORY: She is , lives alone. She had 4 children. Her oldest daughter was . She had 3 brothers and 4 sisters. Only 1 brother and 2 sisters are alive. Her father at 70 of an MD, another brother at 57 of an MD. She denies alcohol use. She denies tobacco use currently and she drinks decaffeinated coffee on occasion. REVIEW OF SYSTEMS: negative x 10 except as above. PHYSICAL EXAM: She is a well-developed, well-nourished female in no apparent distress. Blood pressure 117/58, pulse of 54. No significant JVD. Carotids 2+ . Cardiac Exam: S1 and S2 with 1/6 systolic ejection murmur at the base, 2 to 3 /6 holosystolic murmur at the apex. Chest: Decreased breath sounds, clear, prolonged expiratory phase, increased resonance to percussion. Abdominal Exam: Bowel sounds present. Nontender. Extremities: Distal pulses intact with trace edema. Motor strength 5/5 bilaterally. Deep tendon reflexes are difficult to elicit in the lower extremities, 2/4 in the upper extremities. DIAGNOSTIC STUDIES/LAB DATA: White count of 4.5, hemoglobin 9.9, hematocrit of 32, platelet count of 132. Sodium 139, potassium of 3.9, BUN is 34, creatinine of 1.19. Her troponins initially 0.01, then up to 0.75, then down to 0.01 and then 0.01 again this morning at 1 a.m. Cholesterol 151, LDL 78, HDL 63. BUN of 34, creatinine of 1.19. The Doppler from yesterday, no evidence for right lower extremity DVT. Chest x-ray; advanced chronic obstructive pulmonary disease, mild left basilar atelectasis. No pulmonary edema. EKG from August revealed AFib with poor R-wave progression. No acute changes. EKG from 07/16/15 revealed a similar EKG. EKG from 1918 revealed AFib with poor R- wave progression. No significant ST-T changes. IMPRESSION: My impression is that Mrs. Saldana had an episode of chest pain of unclear etiology certainly suggestive of a coronary artery disease and risk factors for progression of her coronary artery disease. This could be due to coronary insufficiency or vasomotor dysfunction, it would be a little unusual for her to have an hour of pain without more consistent troponin elevation and it is unclear why she had 3 normals and 1 elevation. I have asked the lab to re -run the elevated troponin to see if it was artifactually elevated. For the time being, I recommended the followin. She is to have a pharmacologic stress test to evaluate for ischemia. 2. If indeed she has ischemia, she is willing to proceed with cardiac catheterization. 3. Reconsider the possibility that she has noncardiac pain including reflux or invasive motor dysfunction. 4. Consider possibility of taking Mylanta and sitting up the next time it happens. 5. Prognosis is guarded given her advanced age and comorbidities. [id number]/[facility] [facility] #: [id number] PORTER
--- NOTE | 2016-07-18 15:16 | DS ---
DISCHARGE SUMMARY: DATE OF ADMISSION: 07/16/16 DATE OF DISCHARGE: 07/17/16 PRIMARY CARE PROVIDER: Dr. Thompson. SUPERINTENDENT HOUSE: Dr. Montes. PRINCIPAL DIAGNOSIS: Chest pain of unclear etiology. SECONDARY DIAGNOSES: 1. Atrial fibrillation. 2. Chronic obstructive pulmonary disease. 3. Chronic pain. 4. Hypothyroidism. 5. Diastolic congestive heart failure. 6. Hypertension. DISCHARGE MEDICATIONS: 1. Imdur 15 mg p.o. daily (new). 2. Oxycodone 15 mg p.o. q.4 hours p.r.n. pain. 3. Coumadin 1.5 mg p.o. q.72 hours. 4. Coumadin 3 mg p.o. every other day. 5. Spiriva 1 cap inhaled daily. 6. Aldactone 25 mg p.o. daily. 7. Simethicone 80 mg p.o. daily. 8. Actonel 35 mg p.o. weekly. 9. Lyrica 25 mg p.o. four times a day. 10. Opana 15 mg p.o. q.12 hours. 11. Prilosec 40 mg p.o. b.i.d. 12. Nitroglycerin 0.4 mg SL q.5 minutes p.r.n. chest pain. 13. Metoprolol 25 mg p.o. daily. 14. Linzess 290 mcg p.o. daily. 15. Synthroid 25 mcg p.o. daily. 16. Xopenex 2 puffs inhaled 4 times daily p.r.n. shortness of breath. 17. Ativan 0.5 mg p.o. b.i.d. p.r.n. anxiety. 18. Lasix 20 mg p.o. daily. 19. Diltiazem CD 120 mg p.o. daily. 20. Vitamin D3 1000 units p.o. daily. 21. Calcium 500 mg p.o. daily. 22. Symbicort 1 puff inhaled twice daily. 23. Aspirin 81 mg p.o. daily. HOSPITAL COURSE: Ms. Saldana is an 86-year-old female who presented to the emergency room with complaints of chest pain. She was sitting in the waiting room at Dr. Chauhan's office waiting for evaluation when she developed sudden onset of chest pain across the top of her chest. She described it as constant in nature. The pain was non-exertional. The patient additionally has episodes of chest pain, usually monthly, while lying down for sleep. The patient presented to the emergency room for evaluation. Her initial troponin was elevated at 0.75. The patient was admitted for possible non-ST elevation [place]. Followup troponin just 3 hours after the initial was completely negative. Dr. Madrigal and I both agreed that the initial troponin was likely a false read. She did undergo a nuclear stress testing, which revealed a small area of reversible hypoperfusion of the inferior wall towards the apex concerning for small area of ischemia. Dr. Madrigal then saw the patient in consultation and recommended medical management. He and I discussed the initiation of low-dose Imdur and this has been started by myself. I have started her on 15 mg p.o. daily. The patient will need to continue to monitor her symptoms and follow up with Dr. Montes in the next 3 to 4 weeks. It is felt that her chest pain was likely noncardiac. She has been up and ambulating without any further chest pain, which again makes Dr. Madrigal and myself believe that the pain she presented with is likely not ischemic related. FOLLOWUP CONCERNS: The patient is being discharged home today, 07/17/16. She is to follow up with Dr. Thompson in the next 4 to [address] Montes in the next 3 to 4 weeks. ACTIVITY LEVEL: As tolerated. DIET: Low fat. CONDITION ON DISCHARGE: Stable. TIME SPENT: Twenty-five minutes was spent discharging this patient. CC: Dr. Montes; Dr. Thompson * [id number]/[facility] #: [id number] [facility]
[2016-07-18] MEDS ORDERED: Warfarin TAB(*) 3 MG PO SCH (17:00)
== END 2016-07-17 18:15 | disposition home or self-care (01) | DRG 313 ==
LOC: ED 14:37 → MEDTELE 17:13 → OBSVTOIN 20:25
PROVIDERS: ADMIT Internal Medicine; ATTEND Hospitalist
PROC: 4A12XM4 Monitoring of Cardiac Stress, External Approach (ICD-10-PCS; principal; 2016-07-17)
DX: R07.89 Other chest pain (principal); I25.10 Atherosclerotic heart disease of native coronary artery without angina pectoris; G62.9 Polyneuropathy, unspecified; I48.91 Unspecified atrial fibrillation; J44.9 Chronic obstructive pulmonary disease, unspecified; I11.0 Hypertensive heart disease with heart failure; I50.32 Chronic diastolic (congestive) heart failure; D69.6 Thrombocytopenia, unspecified; E03.9 Hypothyroidism, unspecified; F41.9 Anxiety disorder, unspecified; F32.9 Major depressive disorder, single episode, unspecified; Z88.8 Allergy status to other drugs, medicaments and biological substances; Z88.1 Allergy status to other antibiotic agents; Z88.0 Allergy status to penicillin; Z87.891 Personal history of nicotine dependence; G89.4 Chronic pain syndrome; Z88.5 Allergy status to narcotic agent; Z82.49 Family history of ischemic heart disease and other diseases of the circulatory system; E78.00 Pure hypercholesterolemia, unspecified; J45.909 Unspecified asthma, uncomplicated; M13.89 Other specified arthritis, multiple sites; Z98.42 Cataract extraction status, left eye; Z98.41 Cataract extraction status, right eye; Z79.01 Long term (current) use of anticoagulants; Z79.82 Long term (current) use of aspirin
CPT/HCPCS: 36415; 71010; 78452; 80048; 80053; 80061; 81003; 83036; 83605; 83880; 84436; 84443; 84484; 85025; 85379; 85610; 93005; 93306; 94640; 94760; 99284; A9270-GY; A9502; G0378; J2785

== ENCOUNTER 2016-09-05 07:35 | Day surgery (SDC) | payer MEDICARE, BC ==
--- NOTE | 2016-08-21 03:49 | HP ---
PREOPERATIVE HISTORY AND PHYSICAL: DATE OF ADMISSION: 08/26/16 CHIEF COMPLAINT: Numbness and tingling in the right hand. HISTORY OF PRESENT ILLNESS: Kimberly Saldana is an 86-year-old female who had nerve conduction study consistent with carpal tunnel syndrome on the right. She had carpal tunnel release, but has persistent symptoms and a repeat nerve conduction study showed probable ongoing compression in the median nerve. The patient recently has had in my office issue of sudden onset of chest pain. She was admitted to the hospital and cardiac workup was negative. PAST MEDICAL HISTORY: The patient does have a past medical history of hypertension, atrial fibrillation, congestive heart failure, COPD, asthma, history of pneumonia, hypothyroidism, reflux, peripheral neuropathy, abdominal aneurysm, and gastric ulcer. PAST SURGICAL HISTORY: Tonsillectomy, adenoidectomy, right groin abscess removal, appendectomy, partial hysterectomy, subtotal gastrostomy, partial thyroidectomy, cholecystectomy, left breast biopsy, right lung biopsy, right lymph node biopsy, lumbar laminectomy L4-5, and right carpal tunnel release. CURRENT MEDICATIONS: 1. Voltaren gel 1 to 2 g 2 to 4 times daily as needed. 2. Isosorbide mononitrate ER 30 mg half p.o. daily. 3. MiraLAX 17 g daily p.r.n. 4. Spironolactone 25 mg p.o. daily. 5. Lasix 20 mg 2 pills p.o. daily. 6. Calcium and vitamin D 1 p.o. daily. 7. Actonel 35 mg p.o. weekly. 8. Cartia XT 120 mg p.o. daily. 9. Warfarin sodium 2.5 mg daily, managed by her primary care doctor. 10. Ativan 0.5 mg p.o. 2 times per day p.r.n. 11. Nitrostat 0.4 mg sublingual q.5 minutes up to 3 doses p.r.n. 12. Oxymorphone hydrochloride ER 15 mg 1 p.o. b.i.d. 13. Linzess 290 mcg p.o. daily. 14. Aspirin 81 mg p.o. daily. 15. Symbicort 2 puffs twice a day. 16. Metoprolol succinate ER 25 mg p.o. daily. 17. Omeprazole 20 mg 2 p.o. b.i.d. 18. Levothyroxine sodium 25 mcg p.o. daily. 19. Lyrica 25 mg p.o. t.i.d. 20. Vitamin D 1000 units p.o. daily. 21. Oxycodone 15 mg q.4 hours p.r.n. 22. Oxygen 2 L at bedtime p.r.n. 23. Colace (docusate sodium) 100 mg 2 p.o. daily p.r.n. 24. Xopenex HFA 45 mcg 1 puff q.i.d. p.r.n. 25. Spiriva HandiHaler 80 mcg 1 inhalation q.a.m. ALLERGIES: To CIPRO, PENICILLIN, BACTRIM, CODEINE, FENTANYL, and DURAGESIC. FAMILY HISTORY: Significant for kidney cancer, heart disease, diabetes, or thyroid disease. SOCIAL HISTORY: She walks 5 to 20 minutes per day. She denies tobacco use. Does drink coffee. Does not drink alcoholic beverages. REVIEW OF SYSTEMS: Significant for recent cardiovascular symptoms. Negative for cephalic, respiratory, or gastrointestinal. Symptoms positive for musculoskeletal pain. Negative for skin, endocrine, and neurologic symptoms. PHYSICAL EXAMINATION GENERAL: She is an elderly woman, in no acute distress today. VITAL SIGNS: Height 62 inches, weight 152 pounds, pulse 59, and respirations 16. HEENT: Exam is unremarkable. NECK: She has good range of motion of her neck with minimal pain. No masses are palpated. LUNGS: Clear to auscultation. Good inspiratory effort. No wheezing. CARDIAC: Regular rate and rhythm today without murmur. ABDOMEN: Not examined. PERIPHERAL VASCULAR: She has palpable pulses and mild peripheral ankle swelling. EXTREMITIES: She has decreased sensation in the median nerve distribution of her right hand. She has marked arthritic changes in her fingers, which make it difficult for her to make a full fist and there is thenar wasting. NEUROLOGIC: She is alert and oriented without focal deficit. IMPRESSION: Persistent right carpal tunnel syndrome after carpal tunnel release. PLAN/RECOMMENDATIONS: Redo right carpal tunnel release. The surgical procedure , risks, and benefits were explained to the patient today and she agrees to proceed. We will see her back in followup in 10 to 14 days postop. [id number]/[facility] #: [id number] [facility]ENTER[facility]arp[facility]
[~2016-09-05 07:35] MED LIST: Buffered Lidocaine 1% SYR 3ML* 3 ML/SYR SYRINGE INTRADERM ONE; Famotidine IV* 10 MG/ML 2 ML (20 mg) IV ONE
[2016-09-05] MEDS ORDERED: Lidocaine 2% PF * 5 ML VIAL ONE (08:48)
[2016-09-05] MEDS ORDERED: Propofol* 10 MG/ML 20 ML BTL IV PUSH ONE (08:48)
[2016-09-05] MEDS ORDERED: Lidocaine 1% INJ* 10 MG/ML 30 ML SDV ONE ×2 (09:09→09:11)
[2016-09-05 11:21] VITALS: BP 124/61
--- NOTE | 2016-09-05 14:17 | OP ---
DATE OF OPERATION: 09/05/[address] [facility] DATE OF : 30 SURGEON: Cuca Chauhan MD HISTOTECHNOLOGIST SUPERVISOR: NEFTALI Robertson ANESTHESIOLOGIST: Jaun Funes MD ANESTHESIA: Local, MAC. PRE-OP DIAGNOSIS: Right carpal tunnel syndrome persistent after carpal tunnel release. POST-OP DIAGNOSIS: Right carpal tunnel syndrome persistent after carpal tunnel release. OPERATIVE PROCEDURE: Redo right carpal tunnel release. ESTIMATED BLOOD LOSS: Zero. TOURNIQUET TIME: About 10 minutes. INDICATIONS FOR PROCEDURE: Kimberly Saldana is an 86-year-old female who had a carpal tunnel release, but she failed to have improvement of her symptoms. Repeat nerve conduction study showed ongoing compression. She presents for redo carpal tunnel release on the right. DESCRIPTION OF PROCEDURE: The patient was brought to the operating room and was given a sedation anesthetic and a local infiltration of 10 cc of 1% plain lidocaine. The skin of her right hand and forearm was prepped and draped in the usual sterile fashion. The hand and forearm were exsanguinated and the tourniquet elevated to 250 mmHg. An incision was made in the previous scar and extended proximally with zigzag across the wrist flexion creases to the ulnar aspect, carefully dissected the nerve out proximally and then cut the fascia and a scar tissue over the nerve all the way into the mid aspect of the palm. The nerve showed compression at the proximal aspect of the transverse carpal ligament and was carefully dissected out from the surrounding tissue. The wound was copiously irrigated with saline and the skin edges reapproximated with 4-0 nylon suture. The wound was dressed with Xeroform, 4x4, Webril, and an Rinku wrap. The patient tolerated the procedure well and was brought to the recovery room in good condition. [id number]/[facility] #: [id number] [facility]arp[facility]
== END 2016-09-05 11:05 | disposition home or self-care (01) ==
LOC: OREAST 07:35
PROVIDERS: ATTEND Orthopaedic Surgery
DX: G56.01 Carpal tunnel syndrome, right upper limb (principal); J44.9 Chronic obstructive pulmonary disease, unspecified; I10 Essential (primary) hypertension; I48.91 Unspecified atrial fibrillation; Z79.01 Long term (current) use of anticoagulants
CPT/HCPCS: J2704

== ENCOUNTER 2017-02-14 08:53 | Inpatient (IN) | payer MEDICARE, BC ==
[2017-02-14 09:17] LABS: Hematocrit 39 % (35-47); Hemoglobin 12.6 g/dl (12.0-16.0); Mean Corpuscular HGB Conc 32 g/dl (31-36); Mean Corpuscular Hemoglobin 30 pg (27-31); Mean Corpuscular Volume 92 fL (80-97); Mean Platelet Volume 9 um3 (7.4-10.4); Red Blood Count 4.26 10^6/ul (4.0-5.4); Red Cell Distribution Width 17 % (10.5-15); White Blood Count 3.1 10^3/ul (3.5-10.8)
[2017-02-14 09:18] LABS: Add Diff/Slide Review? Slide Review Added; Comments Flag Yes
[2017-02-14 09:24] LABS: PCO2 Arterial 50 mmHg (35-45)
[2017-02-14 09:32] LABS: Albumin 3.3 g/dL (3.2-5.2); BUN/Creatinine Ratio 27.2 (8-20); C Reactive Protein 24.79 mg/L (< 5.00); Calcium 8.7 mg/dL (8.6-10.3); EGFR African American 39.9 (>60); Globulin 3.3 g/dL (2-4); Potassium 3.7 mmol/L (3.5-5.0); Total Protein 6.6 g/dL (6.4-8.9)
[2017-02-14 09:33] LABS: Troponin I 0.02 ng/mL (<0.04)
[2017-02-14 09:39] LABS: Immature Granulocytes 34 % (0-9); Metamyelocytes % 3 % (0-2); Neutrophil % 48 % (38-83)
[2017-02-14] MEDS ORDERED: Levofloxacin 750 MG IVPREMIX(* 750 MG/150 ML BAG IVPB ONE (10:25)
[2017-02-14] MEDS ORDERED: cefTRIAXone(*) 1 GM in NS 0.9% 50 ML* 50 ML IVPB ONE (10:34)
--- NOTE | 2017-02-14 10:36 | RAD ---
Indication: Mild dyspnea. RIGHT side chest pain. History of congestive heart failure and COPD. Comparison: August 20, 2016 CT. Technique: Sitting AP and lateral chest views. Report: Confluent consolidation involving the RIGHT middle lobe without volume loss is new compared with the August 20, 2016 exam most consistent with pneumonia. Elevated lung volumes and both diffuse mild prominence of the interstitial markings and patchy rarefaction of the mid to upper lung zone interstitial markings. Probable small RIGHT pleural effusion. Negative for pneumothorax. Negative for cardiomegaly. Unremarkable central pulmonary vasculature. IMPRESSION: 1. The constellation of findings is most consistent with RIGHT middle lobe pneumonia. Radiographic follow-up after therapy warranted to assess for resolution. 2. In addition there is diffuse prominence of the interstitial markings concerning for potential coexisting interstitial edema. Correlate with clinical assessment. 3. Stigmata of chronic obstructive pulmonary disease and emphysema.
[2017-02-14] MEDS ORDERED: Azithromycin 500 MG IV - ED ONCE IVPB ONE ×2 (11:00)
[2017-02-14] MEDS ORDERED: Azithromycin IV(*) 500 MG in NS 0.9% 250 ML* 250 ML IVPB SCH (11:00)
[2017-02-14] MEDS ORDERED: NS 0.9% 1000 ML* 1,000 ML IV ONE (11:06)
[2017-02-14] MEDS ORDERED: Simethicone CHEW TAB* 80 MG PO PRN (11:21)
[2017-02-14] MEDS ORDERED: Ipratropium 0.5MG/2.5ML NEB* 0.5 MG/2.5 ML NEB.SOLN INH PRN (11:21)
[2017-02-14] MEDS ORDERED: Nitroglycerin TAB 0.4 MG* 0.4 MG TAB SL PRN (11:21)
[2017-02-14] MEDS ORDERED: Spiriva Inhaler DEVICE* 1 EACH DEVICE INH ONE (13:00)
--- NOTE | 2017-02-14 13:24 | HP ---
CC: Dr. Thompson HISTORY AND PHYSICAL: DATE OF ADMISSION: 02/14/17 TIME OF EVALUATION: 10:45 a.m. PRIMARY CARE PROVIDER: Dr. Thompson. CHIEF COMPLAINT: Right-sided chest pain. HISTORY OF PRESENT ILLNESS: Ms. aSldana is an 86-year-old lady with past medical history of atrial fibrillation; COPD, on home oxygen; chronic pain; hypothyroidism; diastolic CHF; peripheral neuropathy; hypertension; coronary artery disease, who presents to the emergency room with complaints of right- sided chest pain. The patient states that she was in her usual state of health until last night. She states that when she went to bed, she started to feel this right-sided chest pain, 8/10 in intensity, worse with deep inspiration and with cough and this was associated with worse dyspnea. She states she was able to sleep with her usual amount of oxygen (3 L), but she was uncomfortable the whole night and this morning, she felt the symptoms were worse, so she called EMS. She described some dry cough and states that she was not feeling sick before. No new respiratory symptoms prior to last night. She denies fever, chills, or any other complaints. PAST MEDICAL HISTORY: 1. Atrial fibrillation, on anticoagulation with warfarin. 2. COPD, on 3 L of oxygen. 3. Chronic pain. 4. Hypothyroidism. 5. Diastolic CHF with last ejection fraction 60 to 65% on last echo from July 2016. 6. [id number] tricuspid regurgitation and moderate pulmonary hypertension. 7. Thrombocytopenia. 8. Peripheral neuropathy. 9. Hypertension. 10. Coronary artery disease. 11. Status post partial gastrectomy. 12. Status post partial thyroidectomy. 13. Status post cholecystectomy. 14. Status post carpal tunnel repair. MEDICATIONS: Medication list is extensive and not yet updated in the computer. ALLERGIES: The patient had hives with CIPROFLOXACIN, CODEINE, and PENICILLIN. She had nausea with BACTRIM and she had difficulty breathing with FENTANYL. FAMILY HISTORY: Her mother had a history of brain tumor and coronary artery disease. Father had congestive heart failure. SOCIAL HISTORY: She is a former smoker. No history of alcohol or drug use. She lives independently by herself. Surrogate decision maker is her son, Jake Saldana, phone number is [phone]. REVIEW OF SYSTEMS: A 14-point review of systems was performed and all the pertinent negative and positive findings are in the HPI. PHYSICAL EXAMINATION GENERAL: The patient is an elderly female, sitting up in the ED stretcher, appeared uncomfortable, but not in acute distress. VITAL SIGNS: Temperature 99.1, heart rate is 80, respiratory rate is 20, oxygen saturation 96% on 5 L oxygen mask, blood pressure is 127/55. HEENT: Pupils are equal. Moist mucous membranes. CHEST: Breath sounds present bilaterally, decreased in right base. CVS: Normal S1, S2. Irregularly irregular with a systolic murmur. ABDOMEN: Soft. Bowel sounds present. EXTREMITIES: Puffy, but with no pitting edema at this time. NEURO: She is alert, awake, and oriented x3. Able to move all 4 extremities. DIAGNOSTIC STUDIES/LAB DATA: The patient had a CBC that showed a WBC of 3.1, hemoglobin of 12.6, hematocrit of 39, platelets of 120 with 87% neutrophils and 31% bands. INR was 2.8. ABG showed a pH of 7.41 with a PCO2 of 50, PO2 of 62, saturation of 93% on 5 L oxygen mask. Chemistry showed a sodium of 141, potassium of 3.7, chloride of 103, bicarb of 31, BUN of 43, creatinine of 1.58, glucose of 151, lactic acid of 1.8, calcium of 8.7. LFTs were normal. CRP was 224. BNP was 661. Chest x-ray showed right middle lobe pneumonia and diffuse prominence of interstitial markings concerning for potential coexisting interstitial edema and stigmata of COPD. ASSESSMENT AND PLAN: Ms. Saldana is an 86-year-old lady with a past medical history of atrial fibrillation; chronic obstructive pulmonary disease, on home oxygen; hypothyroidism; diastolic congestive heart failure; peripheral neuropathy; hypertension; coronary artery disease that presents to the emergency room with complaints of right-sided pleuritic chest pain and dyspnea and found to have sepsis secondary to community-acquired pneumonia. 1. Sepsis. The patient meets sepsis criteria on admission with tachycardia and leukopenia with significant bandemia. The source is community-acquired pneumonia. 2. Community-acquired pneumonia. The patient will be admitted to the intensive care unit for close monitoring. The sudden onset of her symptoms with leukopenia and significant bandemia suggest that this is an aggressive acute infection. She will be pancultured and started on ceftriaxone and Zithromax empirically. During my interview, her blood pressure was noted to drop to a systolic in the 90s, so she will receive an IV fluid bolus now and we will monitor her vital signs closely in the intensive care unit. 3. Acute on chronic hypoxic/hypercapnic respiratory failure. The patient's ABG shows an elevated CO2 though even normal pH consistent with her chronic compensated respiratory acidosis. The patient is now requiring 5 L of oxygen instead of her usual 3 L and I am concerned that her respiratory status may have worsened with the necessary IV fluid resuscitation. She will be admitted to the intensive care unit and she is agreeable with Vapotherm, BiPAP, or intubation if required. 4. Acute kidney injury. Probably associated with her severe sepsis. The patient will be started on IV fluids. I am going to monitor her renal function. 5. Congestive heart failure. The patient's BNP is elevated to 661. Her chest x- ray suggests some vascular congestion, but I believe her major respiratory issue at this time is her pneumonia. With her developing hypotension and acute kidney injury, she requires IV fluid resuscitation at this point and we are going to monitor her respiratory status closely. 6. Coronary artery disease. Appears to be stable at this time. We will continue her medications once her medication list is confirmed. 7. DVT prophylaxis. The patient has a score of 4 on the DVT Prophylaxis Risk Assessment Guide and she is already anticoagulated with warfarin, with therapeutic INR. 8. Code status was discussed with the patient. She wishes to be a full code and is agreeable with intubation and mechanical ventilation if necessary. TIME SPENT: Approximately 60 minutes was spent with the patient interview, medical records review, and physical examination to complete the admission, more than half the time was spent [id number] with the patient in coordination of care. [id number]/[facility] #: [id number] [facility]ITAL[facility]arp[facility]
[2017-02-14] MEDS: Oxymorphone ER (NF) 5 MG TAB PO SCH (13:59)
[2017-02-14] MEDS: Pregabalin CAP(*) 25 MG PO SCH ×3 (13:59→21:12)
[2017-02-14] MEDS ORDERED: Warfarin TAB(*) 3 MG PO SCH (17:00)
[2017-02-14] MEDS: Acetaminophen TAB* 325 MG PO PRN (17:15)
[2017-02-14] MEDS: Tiotropium CAP.INH* CAP.INH/18 MCG INH SCH ×2 (17:34→17:35)
[2017-02-14] MEDS ORDERED: NS 0.9% 1000 ML* 500 ML IV ONE (18:22)
--- NOTE | 2017-02-14 18:23 | ED ---
Herman Xie SooYoung, scribed for Armando Espinoza MD on 02/14/17 at 0914 . Shortness of Breath - HPI Summary HPI Summary: An 86 y/o F BIBTila presents to ED with R-sided CP onset approx 2200 last night. Associated sx: SOB, productive cough with blood this AM, constipation. Denies recent falls. She's unsure if she had a fever. Rates pain as 10 out of 10. Per EMS, pt given nitro and aspirin to no relief. She notes having similar pain prev when she had an ulcer. Pert PMHx: COPD, former smoker. No ETOH. - History of Current Complaint Chief Complaint: EDShortnessOfBreath Time Seen by Provider: 02/14/17 08:54 Hx Obtained From: Patient, EMS Onset/Duration: Lasting Hours, Still Present Timing: Constant Current Severity: Moderate Dyspnea At: Rest Associated Signs & Symptoms: Cough (Bloody Sputum), Chest Pain Unrelated to Cough - Allergy/Home Medications Allergies/Adverse Reactions: Allergies Allergy/AdvReac Type Severity Reaction Status Date / Time Ciprofloxacin [From Cipro] Allergy Unknown Hives Verified 02/14/17 09:14 Codeine Allergy Unknown Hives Verified 02/14/17 09:14 Fentanyl Allergy Unknown Difficulty Verified 02/14/17 09:14 Breathing Penicillins [PCN] Allergy Unknown Hives Verified 02/14/17 09:14 Sulfamethoxazole AdvReac Intermediate Nausea Verified 02/14/17 09:14 w/Trimethoprim [From Bactrim] Home Medications: Home Medications Magnesium 250 mg PO DAILY 02/14/17 [History Confirmed 02/14/17] Omeprazole 40 mg PO BID 02/14/17 [History Confirmed 02/14/17] PMH/Surg Hx/FS Hx/Imm Hx Previously Healthy: No Endocrine/Hematology History: Reports: Hx Anticoagulant Therapy - coumadin for a fib, Hx Blood Disorders - chronic thrombocytopenia, Hx Thyroid Disease - juwan, Hx Anemia - HX OF Denies: Hx Diabetes Cardiovascular History: Reports: Hx Angina, Hx Congestive Heart Failure, Hx Coronary Artery Disease, Hx Hypercholesterolemia, Hx Hypertension, Other Cardiovascular Problems/Disorders - AFIB Denies: Hx Deep Vein Thrombosis, Hx Myocardial Infarction, Hx Pacemaker/ICD, Hx Valvular Heart Disease Respiratory History: Reports: Hx Asthma, Hx Chronic Obstructive Pulmonary Disease (COPD), Hx Pneumonia - Hospitalized from 10/14/14 - 10/25/14 and 04/26, Hx Seasonal Allergies, Other Respiratory Problems/Disorders - BILAT PNEUMONIA . PT WITH TB 1994 Denies: Hx Lung Cancer, Hx Pulmonary Embolism GI History: Reports: Hx Gall Bladder Disease - cholecystectomy 1976, Hx Gastroesophageal Reflux Disease - CONTROL WITH MED, Hx Ulcer, Other GI Disorders - partial gastrectomy 1972 Denies: Hx Gastrointestinal Bleed, Hx Urosepsis History: Reports: Other Problems/Disorders - hysterectomy breast biopsy left Denies: Hx Kidney Stones, Hx Renal Disease Musculoskeletal History: Reports: Hx Arthritis - BACK, KNEES, Hx Back Problems - laminectomy, Hx Orthopedic Injury - hx r arm, r ankle, toes, Other Musculoskeletal History - back surgery 1995 Sensory History: Reports: Hx Cataracts - removed, Hx Contacts or Glasses - READING GLASSES Denies: Hx Hearing Aid, Other Sensory Impairments Opthamlomology History: Reports: Hx Cataracts - removed, Hx Contacts or Glasses - READING GLASSES Denies: Other Sensory Impairments Neurological History: Reports: Other Neuro Impairments/Disorders - PERIPHERAL NEUROPATHY BILAT, PAIN CLINIC PATIENT Denies: Hx Dementia, Hx Migraine, Hx Seizures, Hx Transient Ischemic Attacks (TIA) Psychiatric History: Reports: Hx Anxiety - CONTROL WITH MED, Hx Depression - CONTROL WITH MED Denies: Hx Panic Disorder, Hx Schizophrenia, Hx Bipolar Disorder, Hx Suicide Attempt, Hx of Violent Episodes Against Others - Cancer History Cancer Type, Location and Year: breast lumpectomy, no treatment Hx Chemotherapy: No Hx Radiation Therapy: No - Surgical History Surgery Procedure, Year, and Place: T&A A CHILD. groin abscess A CHILD. appendectomy, cholecystectomy, [facility]. hysterectomy partial, [facility]. thyroidectomy partial, [facility]. L breast and R lung biopsies, [facility]. 1995 laminectomy L4,5, [facility]. gastrectomy partial 1972;. Carpal Tunnel Surgery Right Wrist by Dr. Chauhan in July 2015. BILAT CATARACTS, [facility]. right lymph node bx 1994, [facility]. left leg surgery- vein 2003 [facility]. Left Breast lumpectomy 1982, [facility] Hx Anesthesia Reactions: No - Immunization History Date of Tetanus Vaccine: 2013 Date of Influenza Vaccine: Fall 2012 Infectious Disease History: No Infectious Disease History: Reports: Hx Tuberculosis - , per pt Denies: Hx Clostridium Difficile, Hx Hepatitis, Hx Human Immunodeficiency Virus (HIV), Hx of Known/Suspected MRSA, Traveled Outside the [place] in Last 30 Days - Family History Known Family History: Positive: Cardiac Disease Negative: Hypertension, Diabetes - Social History Occupation: Retired Lives: Alone Alcohol Use: None Hx Substance Use: No Substance Use Type: Reports: None Substance Use Comment - Amount & Last Used: oxycodone and oxymorphone Hx Tobacco Use: Yes Smoking Status (MU): Former Smoker Type: Cigarettes Amount Used/How Often: 2 packs per week Length of Time of Smoking/Using Tobacco: ON AND OFF 45 YRS Have You Smoked in the Last Year: No Review of Systems Negative: Fever Positive: Chest Pain Positive: Shortness Of Breath, Cough - productive with blood this AM Positive: Other - pos: constipation All Other Systems Reviewed And Are Negative: Yes Physical Exam - Summary Physical Exam Summary: VITAL SIGNS: Reviewed. GENERAL: Patient is a well-developed and nourished female who is lying comfortable in the stretcher. Patient is not in any acute respiratory distress. HEAD AND FACE: No signs of trauma. No ecchymosis, hematomas or skull depressions. No sinus tenderness. EYES: PERRLA, EOMI x 2, No injected conjunctiva, no nystagmus. EARS: Hearing grossly intact. Ear canals and tympanic membranes are within normal limits. MOUTH: Oropharynx within normal limits. NECK: Supple, trachea is midline, no adenopathy, no JVD, no carotid bruit, no c- spine tenderness, neck with full ROM. CHEST: Symmetric, POSITIVE TENDERNESS TO R-SIDE. LUNGS: CRACKLES IN R LUNG. CVS: Regular rate and rhythm, S1 and S2 present, no murmurs or gallops appreciated. ABDOMEN: Soft, non-tender. No signs of distention. No rebound, no guarding, and no masses palpated. Bowel sounds are normal. EXTREMITIES: FROM in all major joints, no edema, no cyanosis or clubbing. NEURO: Alert and oriented x 3. No acute neurological deficits. Speech is normal and follows commands. SKIN: Dry and warm Triage Information Reviewed: Yes Vital Signs On Initial Exam: Initial Vitals Temp Pulse Resp BP Pulse Ox 99.1 F 92 22 110/80 90 02/14/17 08:55 02/14/17 08:55 02/14/17 08:55 02/14/17 08:55 02/14/17 08:55 Vital Signs Reviewed: Yes - Dixon Coma Scale Coma Scale Total: 15 Diagnostics - Vital Signs Vital Signs Temp Pulse Resp BP Pulse Ox 02/14/17 08:55 99.1 F 92 22 110/80 90 - Laboratory Lab Results: Lab Results 02/14/17 02/14/17 02/14/17 Range/Units 09:05 09:05 09:05 WBC 3.1 L (3.5-10.8) 10^3/ul RBC 4.26 (4.0-5.4) 10^6/ul Hgb 12.6 (12.0-16.0) g/dl Hct 39 (35-47) % MCV 92 (80-97) fL MCH 30 (27-31) pg MCHC 32 (31-36) g/dl RDW 17 H (10.5-15) % Plt Count 120 L (150-450) 10^3/ul MPV 9 (7.4-10.4) um3 Immature Gran % (Auto) 34 H (0-9) % Neut % (Auto) 87.9 H (38-83) % Lymph % (Auto) 7.6 L (25-47) % Cuming % (Auto) 4.1 (1-9) % Eos % (Auto) 0 (0-6) % Baso % (Auto) 0.4 (0-2) % Absolute Neuts (auto) 2.7 (1.5-7.7) 10^3/ul Absolute Lymphs (auto) 0.2 L (1.0-4.8) 10^3/ul Absolute Monos (auto) 0.1 (0-0.8) 10^3/ul Absolute Eos (auto) 0 (0-0.6) 10^3/ul Absolute Basos (auto) 0 (0-0.2) 10^3/ul Absolute Nucleated RBC 0 10^3/ul Neutrophils % 48 (38-83) % Band Neutrophils % 31 H (0-8) % Lymphocytes % 10 L (25-47) % Monocytes % 8 (0-13) % Metamyelocytes % 3 H (0-2) % Nucleated RBC % 0.1 Normal RBC Morphology Not Reportable Elliptocytes 1+ INR (Anticoag Therapy) (0.89-1.11) APTT (26.0-36.3) seconds Patient Temperature ABG pH (7.35-7.45) ABG pCO2 (35-45) mmHg ABG pO2 (80-100) mmHg ABG HCO3 (19-31) mmol/L ABG O2 Saturation (95-98) % ABG Base Excess (-2.0-2.0) Respiration Rate O2 Delivery Device Ventilator Type Vent Mode FiO2 Inspiratory Time PEEP Pressure Support Pressure Control EPAP IPAP BiPAP Sodium 141 (133-145) mmol/L Potassium 3.7 (3.5-5.0) mmol/L Chloride 103 (101-111) mmol/L Carbon Dioxide 31 (22-32) mmol/L Anion Gap 7 (2-11) mmol/L BUN 43 H (6-24) mg/dL Creatinine 1.58 H (0.51-0.95) mg/dL Est GFR ( Amer) 39.9 (>60) Est GFR (Non-Af Amer) 31.0 (>60) BUN/Creatinine Ratio 27.2 H (8-20) Glucose 151 H (70-100) mg/dL Lactic Acid 1.8 (0.5-2.0) mmol/L Calcium 8.7 (8.6-10.3) mg/dL Total Bilirubin 1.00 (0.2-1.0) mg/dL AST 18 (13-39) U/L ALT 17 (7-52) U/L Alkaline Phosphatase 85 (34-104) U/L Troponin I 0.02 (<0.04) ng/mL C-Reactive Protein 24.79 H (< 5.00) mg/L B-Natriuretic Peptide ( - 100) pg/mL Total Protein 6.6 (6.4-8.9) g/dL Albumin 3.3 (3.2-5.2) g/dL Globulin 3.3 (2-4) g/dL Albumin/Globulin Ratio 1.0 (1-3) 02/14/17 02/14/17 02/14/17 Range/Units 09:05 09:05 09:15 WBC (3.5-10.8) 10^3/ul RBC (4.0-5.4) 10^6/ul Hgb (12.0-16.0) g/dl Hct (35-47) % MCV (80-97) fL MCH (27-31) pg MCHC (31-36) g/dl RDW (10.5-15) % Plt Count (150-450) 10^3/ul MPV (7.4-10.4) um3 Immature Gran % (Auto) (0-9) % Neut % (Auto) (38-83) % Lymph % (Auto) (25-47) % Cuming % (Auto) (1-9) % Eos % (Auto) (0-6) % Baso % (Auto) (0-2) % Absolute Neuts (auto) (1.5-7.7) 10^3/ul Absolute Lymphs (auto) (1.0-4.8) 10^3/ul Absolute Monos (auto) (0-0.8) 10^3/ul Absolute Eos (auto) (0-0.6) 10^3/ul Absolute Basos (auto) (0-0.2) 10^3/ul Absolute Nucleated RBC 10^3/ul Neutrophils % (38-83) % Band Neutrophils % (0-8) % Lymphocytes % (25-47) % Monocytes % (0-13) % Metamyelocytes % (0-2) % Nucleated RBC % Normal RBC Morphology Elliptocytes INR (Anticoag Therapy) 2.83 H (0.89-1.11) APTT 40.0 H (26.0-36.3) seconds Patient Temperature Not Reportable ABG pH 7.41 (7.35-7.45) ABG pCO2 50 H (35-45) mmHg ABG pO2 62 L (80-100) mmHg ABG HCO3 29.4 (19-31) mmol/L ABG O2 Saturation 93.5 L (95-98) % ABG Base Excess 5.9 H (-2.0-2.0) Respiration Rate Not Reportable O2 Delivery Device Oxymask Ventilator Type Not Reportable Vent Mode Not Reportable FiO2 Not Reportable Inspiratory Time Not Reportable PEEP Not Reportable Pressure Support Not Reportable Pressure Control Not Reportable EPAP Not Reportable IPAP Not Reportable BiPAP Not Reportable Sodium (133-145) mmol/L Potassium (3.5-5.0) mmol/L Chloride (101-111) mmol/L Carbon Dioxide (22-32) mmol/L Anion Gap (2-11) mmol/L BUN (6-24) mg/dL Creatinine (0.51-0.95) mg/dL Est GFR ( Amer) (>60) Est GFR (Non-Af Amer) (>60) BUN/Creatinine Ratio (8-20) Glucose (70-100) mg/dL Lactic Acid (0.5-2.0) mmol/L Calcium (8.6-10.3) mg/dL Total Bilirubin (0.2-1.0) mg/dL AST (13-39) U/L ALT (7-52) U/L Alkaline Phosphatase (34-104) U/L Troponin I (<0.04) ng/mL C-Reactive Protein (< 5.00) mg/L B-Natriuretic Peptide 661 H ( - 100) pg/mL Total Protein (6.4-8.9) g/dL Albumin (3.2-5.2) g/dL Globulin (2-4) g/dL Albumin/Globulin Ratio (1-3) Result Diagrams: 02/14/17 09:05 02/14/17 09:05 Lab Statement: Any lab studies that have been ordered have been reviewed, and results considered in the medical decision making process. - Radiology CXR Xray Interpretation: Positive (See Comments) - IMPRESSION: 1. The constellation of findings is most consistent with RIGHT middle lobe pneumonia. Radiographic follow-up after therapy warranted to assess for resolution. 2. In addition there is diffuse prominence of the interstitial markings concerning for potential coexisting interstitial edema. Correlate with clinical assessment. 3. Stigmata of chronic obstructive pulmonary disease and emphysema. Radiology Interpretation Completed By: Radiologist - EKG 0907 Cardiac Rate: NL - 93 bpm EKG Rhythm: Atrial Fibrillation ST Segment: Normal - no ST elevation Course/Dx - Course Course Of Treatment: Pt is an 86 y/o F BIBA presenting with R-sided CP onset approx 2200 last night. Associated sx: SOB, productive cough with blood this AM , constipation. Denies recent falls. She's unsure if she had a fever. Per EMS, pt given nitro and aspirin to no relief. She notes having similar pain prev when she had an ulcer. Pert PMHx: COPD, former smoker. No ETOH. Blood work is without significant abnormalities except WBC 3.1, platelets 120, bands 31, [employer] positive for acute renal insufficieny, CRP 24.79, BNP 661. EKG shows afib at [address] elevation. CXR shows R renal lobe PNA with possible CHF. Pt given fluids, Levaquin, Azithromycin, Ceftriaxone Sodium in ED. Pt is hemodynamically stable and A&Ox3. Discussed case with Dr. Huizar, hospitalist, who accepted pt for admission. - Diagnoses Differential Diagnosis/HQI/PQRI: Positive: Bronchitis, CHF, COPD Exacerbation, Pneumonia Provider Diagnoses: CHF (congestive heart failure), Hypoxia, Pleural effusion, PNA (pneumonia), Chest pain - Physician Notifications Discussed Care of Patient With: Jena Huizar Time Discussed With Above Provider: 10:29 Instructed by Provider To: Admit As Inpatient Discharge - Discharge Plan Condition: Stable Disposition: ADMITTED TO [facility] The documentation as recorded by the Herman lynne SooYoung accurately reflects the service I personally performed and the decisions made by , Armando Espinoza MD.
[2017-02-14] MEDS: NS 0.9% 1000 ML* 1,000 ML IV SCH (19:25)
[2017-02-14] MEDS: Mometasone/Formoter 200/5 MDI INH SCH (19:42)
[2017-02-14] MEDS ORDERED: NS 0.9% IV ONE (20:25)
[2017-02-14] MEDS: Lidocaine PATCH 5%* 1 PATCH TRANSDERM SCH (21:13)
[2017-02-14] MEDS ORDERED: Phenylephrine INJ* 50 MG in NS 0.9% 250 ML* 245 ML IV SCH (23:20)
[2017-02-14] MEDS ORDERED: Phenylephrine INJ* 10 MG/ML 1 ML VIAL (10 MG) ONE (23:31)
[2017-02-15] MEDS: Oxymorphone ER (NF) 5 MG TAB PO SCH ×3 (00:17→23:47)
[2017-02-15 02:37] LABS: Urine Bilirubin Negative (Negative); Urine Glucose Negative (Negative); Urine Nitrite Negative (Negative)
[2017-02-15] MEDS: NS 0.9% 1000 ML* 1,000 ML IV SCH ×3 (05:26→16:14)
[2017-02-15] MEDS: Levothyroxine TAB* 25 MCG TAB PO SCH (05:34)
[2017-02-15] MEDS: Acetaminophen TAB* 325 MG PO PRN ×2 (05:50→21:31)
[2017-02-15 06:10] LABS: Hematocrit 35 % (35-47); Hemoglobin 11.1 g/dl (12.0-16.0); Mean Corpuscular HGB Conc 32 g/dl (31-36); Mean Corpuscular Hemoglobin 29 pg (27-31); Mean Corpuscular Volume 91 fL (80-97); Mean Platelet Volume 9 um3 (7.4-10.4); Red Cell Distribution Width 16 % (10.5-15); White Blood Count 10.1 10^3/ul (3.5-10.8)
[2017-02-15 06:11] LABS: Comments Flag Yes
[2017-02-15 06:25] LABS: BUN/Creatinine Ratio 34.7 (8-20); Calcium 7.8 mg/dL (8.6-10.3); EGFR African American 55.9 (>60); EGFR Non-African American 43.4 (>60); Potassium 3.9 mmol/L (3.5-5.0)
[2017-02-15] MEDS ORDERED: NS 0.9% 1000 ML* 1,000 ML IV ONE (08:24)
[2017-02-15] MEDS ORDERED: PTO: Linaclotide (NF) 290 MCG CAP PO SCH (09:00)
[2017-02-15] MEDS: Metoprolol Succinate XL TAB* 25 MG PO SCH (09:38)
[2017-02-15] MEDS: Aspirin EC Low Dose* 81 MG TAB.EC PO SCH (09:38)
[2017-02-15] MEDS: Pregabalin CAP(*) 25 MG PO SCH ×4 (09:38→21:32)
[2017-02-15] MEDS: Docusate CAP* 100 MG PO SCH (09:38)
[2017-02-15] MEDS: Omeprazole CAP* 20 MG PO SCH (09:38)
[2017-02-15] MEDS: Mometasone/Formoter 200/5 MDI INH SCH ×2 (10:03→19:46)
[2017-02-15] MEDS: Tiotropium CAP.INH* CAP.INH/18 MCG INH SCH (10:03)
[2017-02-15] MEDS: cefTRIAXone VIAL(*) 1,000 MG in NS 0.9% 50 ML* 50 ML IVPB SCH (11:34)
[2017-02-15] MEDS: Azithromycin IV(*) 500 MG in NS 0.9% 250 ML* 250 ML IVPB SCH (12:03)
--- NOTE | 2017-02-15 15:05 | PN ---
Subjective Date of Service: 02/15/17 Interval History: HOSPITALIST PROGRESS NOTE Patient seen and examined at bedside. She feels a little better today. Dyspnea is less intense, right sided chest pain is still present, but not as bad. Family History: Unchanged from Admission Social History: Unchanged from Admission Past Medical History: Unchanged from Admission Objective Active Medications: Acetaminophen (Tylenol Tab*) 650 mg PO Q6H PRN PRN Reason: pain/fever Last Admin: 02/15/17 05:50 Dose: 650 mg Aspirin (Aspirin Ec Low Dose*) 81 mg PO QAM [facility] Last Admin: 02/15/17 09:38 Dose: 81 mg Docusate Sodium (Colace Cap*) 200 mg PO QAM [facility] Last Admin: 02/15/17 09:38 Dose: 200 mg Ceftriaxone Sodium 1,000 mg/ (Sodium Chloride) 50 mls @ 200 mls/hr IVPB Q24H [facility] Last Admin: 02/15/17 11:34 Dose: 200 mls/hr Azithromycin 500 mg/ Sodium (Chloride) 250 mls @ 250 mls/hr IVPB Q24H [facility] Last Admin: 02/15/17 12:03 Dose: 250 mls/hr Phenylephrine HCl 50 mg/ (Sodium Chloride) 250 mls @ 1.5 mls/hr IV .(Initial Rate) HARRIET; 5 MCG/MIN PRN Reason: Protocol Last Admin: 02/14/17 23:30 Dose: 1.5 mls/hr Sodium Chloride (Ns 0.9% 1000 Ml*) 1,000 mls @ 150 mls/hr IV PER RATE [facility] Last Admin: 02/15/17 09:55 Dose: 150 mls/hr Ipratropium [place] (Atrovent 0.5 Mg Neb.Stacie*) 0.5 mg INH Q4H PRN PRN Reason: SOB/WHEEZING Levalbuterol HCl (Xopenex Hfa Inhaler*) 2 puff INH QID PRN PRN Reason: SOB/WHEEZING Levothyroxine Sodium (Synthroid Tab*) 25 mcg PO QAM@0600 [facility] Last Admin: 02/15/17 05:34 Dose: 25 mcg Lidocaine (Lidoderm 5% Patch*) 1 patch TRANSDERM BEDTIME [facility] Last Admin: 02/14/17 21:13 Dose: 1 patch Linaclotide (Linzess (Nf)) 290 mcg PO QAM [facility] Last Admin: 02/15/17 12:03 Dose: Not Given Lorazepam (Ativan Tab(*)) 0.5 mg PO BID PRN PRN Reason: ANXIETY Metoprolol Succinate (Toprol Xl Tab*) 25 mg PO QAM [facility] Last Admin: 02/15/17 09:38 Dose: 25 mg Mometasone Furoate/Formoterol Fumar (Dulera 200/5 Mdi*) 2 puff INH BID [facility] PRN Reason: Protocol Last Admin: 02/15/17 10:03 Dose: 2 puff Nitroglycerin (Nitroglycerin Tab 0.4 Mg*) 0.4 mg SL Q5M PRN PRN Reason: PAIN - CHEST Omeprazole (Prilosec Cap*) 20 mg PO DAILY@0730 [facility] Last Admin: 02/15/17 09:38 Dose: 20 mg Oxycodone HCl (Roxycodone Tab*) 15 mg PO Q4H PRN PRN Reason: PAIN Oxymorphone HCl (Opana Er (Nf)) 15 mg PO Q12H [facility] Last Admin: 02/15/17 13:01 Dose: 15 mg Pharmacy Profile Note (Coumadin Daily Reminder*) 0 note FOLLOW UP 1700 [facility] Last Admin: 02/14/17 17:15 Dose: 1 note Pregabalin (Lyrica Cap(*)) 25 mg PO QID [facility] Last Admin: 02/15/17 13:01 Dose: 25 mg Simethicone (Mylicon*) 160 mg PO PCHS PRN PRN Reason: INDIGESTION Tiotropium [place] (Spiriva Cap.Inh*) 1 cap INH [facility] Last Admin: 02/15/17 10:03 Dose: 1 inhaler Warfarin Sodium (Coumadin Tab(*)) 3 mg PO SuTuWeThFrSa@1700 [facility] PRN Reason: Protocol Last Admin: 02/14/17 17:15 Dose: 3 mg Warfarin Sodium (Coumadin Tab(*)) 1.5 mg PO Mo@1700 [facility] PRN Reason: Protocol Vital Signs 02/15/17 02/15/17 02/15/17 12:00 12:25 12:30 Temperature 100.2 F Pulse Rate 77 86 Respiratory 17 21 19 Rate Blood Pressure 105/44 124/65 117/62 (mmHg) O2 Sat by Pulse 95 98 Oximetry 02/15/17 14:30 Temperature Pulse Rate 82 Respiratory 15 Rate Blood Pressure 100/52 (mmHg) O2 Sat by Pulse 93 Oximetry Oxygen Devices in Use Now: High Flow Nasal Cannula Appearance: Elderly lady sitting up in bed in NAD. Eyes: No Scleral Icterus Ears/Nose/Mouth/Throat: Mucous Membranes Moist Neck: Trachea Midline Respiratory: Symmetrical Chest Expansion and Respiratory Effort, - - BS+ bilaterally coarse at right base Cardiovascular: RRR - Normal S1 and S2 Abdominal: NL Sounds; No Tenderness; No Distention Neurological: Alert and Oriented x 3, NL Muscle Strength and Tone Lines/Tubes/Other Access: Clean, Dry and Intact Peripheral IV Nutrition: Taking PO's Result Diagrams: 02/15/17 05:32 02/15/17 05:32 Assess/Plan/Problems-Billing Assessment: Mrs. Saldana is an 86yo F with PMH of Afib on Warfarin, COPD on home O2, chronic pain, hypothyroidism, diastolic CHF, HTN, CAD, who presented to ED with c/o dyspnea and right sided chest pain, found to have sepsis secondary to pneumonia. - Patient Problems (1) Severe sepsis Comment: - Patient met sepsis criteria on admission, with fever, tachycardia, leukopenia. - Also had RAZA and encephalopathy. - Source is RLL pneumonia. - Required neosynephrine overnight, but it was discontinued now she received more fluids. (2) Pneumonia Comment: - CxR showed RLL consolidation. - Check Legionella and pneumococcal Ag. - Cultures show no growth so far. - Continue Ceftriaxone and Zithromax #2. (3) Acute respiratory failure with hypoxia Comment: - Secondary to pneumonia. - Continue Vapotherm. (4) Acute renal failure Comment: - On CKD stage 3. - Creatinine improving with IVF. (5) Chest pain Comment: - Right sided, pleuritic, secondary to pneumonia. - Troponin was negative. (6) Diastolic CHF Comment: - Stable. - Monitor closely for signs of fluid overload. (7) Hypothyroidism Comment: - Check TSH. - Continue current dose of synthroid. (8) Atrial fibrillation Comment: - Rate is controlled with metoprolol XL. - Diltiazem on hold for now. - INR is supratherapeutic - hold Warfarin today. (9) DVT prophylaxis Comment: - Therapeutic INR on Warfarin. (10) Full code status Status and Disposition: Inpatient. Continue to monitor in ICU.
[2017-02-15] MEDS: Artificial Tears* 15 ML BTL BOTH EYES PRN (17:06)
[2017-02-15] MEDS: Lidocaine PATCH 5%* 1 PATCH TRANSDERM SCH (21:32)
[2017-02-16] MEDS: Levothyroxine TAB* 25 MCG TAB PO SCH (05:59)
[2017-02-16] MEDS: Acetaminophen TAB* 325 MG PO PRN ×2 (06:09→21:32)
[2017-02-16 06:32] LABS: Hematocrit 30 % (35-47); Hemoglobin 9.6 g/dl (12.0-16.0); Mean Corpuscular HGB Conc 32 g/dl (31-36); Mean Corpuscular Hemoglobin 29 pg (27-31); Mean Corpuscular Volume 92 fL (80-97); Mean Platelet Volume 10 um3 (7.4-10.4); Red Blood Count 3.29 10^6/ul (4.0-5.4); Red Cell Distribution Width 17 % (10.5-15); White Blood Count 7.6 10^3/ul (3.5-10.8)
[2017-02-16 06:34] LABS: BUN/Creatinine Ratio 34.6 (8-20); C Reactive Protein 245.45 mg/L (< 5.00); EGFR African American 90.1 (>60)
[2017-02-16 06:38] LABS: Add Diff/Slide Review? Slide Review Added; Comments Flag Yes
[2017-02-16 06:42] LABS: Calcium 6.3 mg/dL (8.6-10.3)
[2017-02-16] MEDS ORDERED: NS 0.9% 1000 ML* 1,000 ML IV SCH (07:26)
[2017-02-16 07:56] LABS: TSH (Thyroid Stimulating Horm) 3.73 mcIU/mL (0.34-5.60)
[2017-02-16] MEDS: Tiotropium CAP.INH* CAP.INH/18 MCG INH SCH (08:23)
[2017-02-16] MEDS: Mometasone/Formoter 200/5 MDI INH SCH ×2 (08:23→19:35)
[2017-02-16] MEDS: Pregabalin CAP(*) 25 MG PO SCH ×4 (08:27→21:32)
[2017-02-16] MEDS: Docusate CAP* 100 MG PO SCH (08:28)
[2017-02-16] MEDS: Omeprazole CAP* 20 MG PO SCH (08:28)
[2017-02-16] MEDS: Aspirin EC Low Dose* 81 MG TAB.EC PO SCH (08:28)
[2017-02-16] MEDS: Metoprolol Succinate XL TAB* 25 MG PO SCH (08:28)
[2017-02-16 08:47] LABS: BUN/Creatinine Ratio 37.3 (8-20); Calcium 6.7 mg/dL (8.6-10.3); EGFR African American 94.2 (>60); EGFR Non-African American 73.3 (>60); Potassium 3.2 mmol/L (3.5-5.0)
[2017-02-16 09:17] LABS: Magnesium 1.1 mg/dL (1.9-2.7)
[2017-02-16] MEDS ORDERED: Potassium Chlor TAB* 20 MEQ TAB.ER PO ONE (09:41)
[2017-02-16] MEDS ORDERED: Magnesium Sulfate 2 GM IV* 2 GM/50 ML BAG IVPB ONE (09:41)
[2017-02-16] MEDS ORDERED: Calcium Gluconate INJ* 1 GM in NS 0.9% 50 ML* 50 ML IVPB ONE (09:43)
[2017-02-16 09:50] LABS: Magnesium 1.1 mg/dL (1.9-2.7)
[2017-02-16] MEDS ORDERED: CALCIUM GLUCONATE* 1 GM/10 ML VIAL (in Pyxis) ONE (10:05)
[2017-02-16] MEDS: Polyethylene Glycol 3350* 17 GM PACKET PO SCH (10:11)
[2017-02-16] MEDS: KCL 10 MEQ/50 ML IVPREMIX* 10 MEQ/50 ML BAG IV SCH ×3 (10:13→12:55)
[2017-02-16] MEDS: cefTRIAXone VIAL(*) 1,000 MG in NS 0.9% 50 ML* 50 ML IVPB SCH (11:14)
[2017-02-16] MEDS: Azithromycin IV(*) 500 MG in NS 0.9% 250 ML* 250 ML IVPB SCH (11:44)
[2017-02-16] MEDS: Oxymorphone ER (NF) 5 MG TAB PO SCH ×2 (12:10→22:58)
--- NOTE | 2017-02-16 13:09 | PN ---
Subjective Date of Service: 02/16/17 Interval History: HOSPITALIST PROGRESS NOTE Patient seen and examined at bedside. She feels better today. Still dyspneic, but less than on admission. Right sided chest pain still present, but very mild. Appetite is good, had a good night of sleep. Family History: Unchanged from Admission Social History: Unchanged from Admission Past Medical History: Unchanged from Admission Objective Active Medications: Acetaminophen (Tylenol Tab*) 650 mg PO Q6H PRN PRN Reason: pain/fever Last Admin: 02/16/17 06:09 Dose: 650 mg Aspirin (Aspirin Ec Low Dose*) [facility] Last Admin: 02/16/17 08:28 Dose: 81 mg Docusate Sodium (Colace Cap*) [facility] Last Admin: 02/16/17 08:28 Dose: 200 mg Ceftriaxone Sodium 1,000 mg/ (Sodium Chloride) 50 mls @ 200 mls/hr IVPB Q24H [facility] Last Admin: 02/16/17 11:14 Dose: 200 mls/hr Azithromycin 500 mg/ Sodium (Chloride) 250 mls @ 250 mls/hr IVPB Q24H [facility] Last Admin: 02/16/17 11:44 Dose: 250 mls/hr Sodium Chloride (Ns 0.9% 1000 Ml*) 1,000 mls @ 100 mls/hr IV PER RATE [facility] Stop: 02/16/17 20:00 Last Admin: 02/16/17 11:07 Dose: 100 mls/hr Ipratropium [place] (Atrovent 0.5 Mg Neb.Stacie*) 0.5 mg INH Q4H PRN PRN Reason: SOB/WHEEZING Levalbuterol HCl (Xopenex Hfa Inhaler*) 2 puff INH QID PRN PRN Reason: SOB/WHEEZING Levothyroxine Sodium (Synthroid Tab*) 25 mcg PO QAM@0600 [facility] Last Admin: 02/16/17 05:59 Dose: 25 mcg Lidocaine (Lidoderm 5% Patch*) 1 patch TRANSDERM BEDTIME [facility] Last Admin: 02/15/17 21:32 Dose: 1 patch Lorazepam (Ativan Tab(*)) 0.5 mg PO BID PRN PRN Reason: ANXIETY Metoprolol Succinate (Toprol Xl Tab*) 25 mg PO QAM [facility] Last Admin: 02/16/17 08:28 Dose: 25 mg Mometasone Furoate/Formoterol Fumar (Dulera 200/5 Mdi*) 2 puff INH BID [facility] PRN Reason: Protocol Last Admin: 02/16/17 08:23 Dose: 2 puff Nitroglycerin (Nitroglycerin Tab 0.4 Mg*) 0.4 mg SL Q5M PRN PRN Reason: PAIN - CHEST Omeprazole (Prilosec Cap*) 20 mg PO DAILY@0730 [facility] Last Admin: 02/16/17 08:28 Dose: 20 mg Oxycodone HCl (Roxycodone Tab*) 15 mg PO Q4H PRN PRN Reason: PAIN Oxymorphone HCl (Opana Er (Nf)) 15 mg PO Q12H [facility] Last Admin: 02/16/17 12:10 Dose: 15 mg Pharmacy Profile Note (Coumadin Daily Reminder*) 0 note FOLLOW UP 1700 [facility] Last Admin: 02/15/17 16:15 Dose: 1 note Polyethylene Glycol/Electrolytes (Miralax*) 17 gm PO DAILY [facility] Last Admin: 02/16/17 10:11 Dose: 17 gm Polyvinyl Alcohol (Polyvinyl Alcohol 1.4% Opth*) 1 drop BOTH EYES Q2H PRN PRN Reason: DRY EYE Last Admin: 02/15/17 17:06 Dose: 1 drop Pregabalin (Lyrica Cap(*)) 25 mg PO QID [facility] Last Admin: 02/16/17 12:10 Dose: 25 mg Simethicone (Mylicon*) 160 mg PO PCHS PRN PRN Reason: INDIGESTION Tiotropium [place] (Spiriva Cap.Inh*) 1 cap INH QAM [facility] Last Admin: 02/16/17 08:23 Dose: 1 inhaler Vital Signs 02/16/17 02/16/17 02/16/17 11:30 11:42 12:00 Temperature 98.7 F Pulse Rate 85 83 75 Respiratory 18 18 18 Rate Blood Pressure 120/60 110/66 (mmHg) O2 Sat by Pulse 97 96 96 Oximetry Oxygen Devices in Use Now: High Flow Nasal Cannula Appearance: Pleasant elderly lady sitting up in bed in NAD. Eyes: No Scleral Icterus Ears/Nose/Mouth/Throat: Mucous Membranes Moist Neck: Trachea Midline Respiratory: Symmetrical Chest Expansion and Respiratory Effort, - - BS+ bilaterally, coarse with crackles on right base Cardiovascular: RRR - Normal S1 and S2 Abdominal: NL Sounds; No Tenderness; No Distention Extremities: - - Mild bilateral LE edema Neurological: Alert and Oriented x 3, NL Muscle Strength and Tone Lines/Tubes/Other Access: Clean, Dry and Intact Peripheral IV Nutrition: Taking PO's Result Diagrams: 02/16/17 06:01 02/16/17 08:17 Assess/Plan/Problems-Billing Assessment: Mrs. Saldana is an 86yo F with PMH of Afib on Warfarin, COPD on home O2, chronic pain, hypothyroidism, diastolic CHF, HTN, CAD, who presented to ED with c/o dyspnea and right sided chest pain, found to have sepsis secondary to pneumonia. - Patient Problems (1) Severe sepsis Comment: - Patient met sepsis criteria on admission, with fever, tachycardia, leukopenia. - Also had RAZA and encephalopathy. - Source is RLL pneumonia. - Required neosynephrine <24h, but it was discontinued as she received more fluids. (2) Pneumonia Comment: - CxR showed RLL consolidation. - Legionella and pneumococcal Ag are negative. - Cultures show no growth so far. - Continue Ceftriaxone and Zithromax #3. (3) Acute respiratory failure with hypoxia Comment: - Secondary to pneumonia. - Wean off Vapotherm as tolerated. (4) Acute renal failure Comment: - On CKD stage 3. - Creatinine improving with IVF. (5) Chest pain Comment: - Right sided, pleuritic, secondary to pneumonia. - Troponin was negative. (6) Diastolic CHF Comment: - Stable. - Monitor closely for signs of fluid overload. (7) Hypothyroidism Comment: - Check TSH. - Continue current dose of synthroid. (8) Atrial fibrillation Comment: - Rate is controlled with metoprolol XL. - Diltiazem on hold for now. - INR is supratherapeutic - hold Warfarin today. (9) DVT prophylaxis Comment: - Therapeutic INR on Warfarin. (10) Full code status Status and Disposition: Inpatient.
[2017-02-16] MEDS: LORazepam TAB(*) 0.5 MG PO PRN (13:25)
[2017-02-16] MEDS ORDERED: Warfarin TAB(*) 3 MG PO SCH (17:00)
[2017-02-16] MEDS: Morphine INJ* 2 MG/ML 1 ML SYRINGE IV PRN (18:37)
[2017-02-16] MEDS: Lidocaine PATCH 5%* 1 PATCH TRANSDERM SCH (21:31)
[2017-02-16] MEDS ORDERED: Albuterol 2.5 MG/3 ML NEB.SOL* (0.083%) ONE (23:10)
[2017-02-17] MEDS: Acetaminophen TAB* 325 MG PO PRN ×2 (03:20→10:06)
[2017-02-17] MEDS: Morphine INJ* 2 MG/ML 1 ML SYRINGE IV PRN ×2 (04:33→12:04)
[2017-02-17 05:52] LABS: Hematocrit 31 % (35-47); Mean Corpuscular HGB Conc 32 g/dl (31-36); Mean Corpuscular Hemoglobin 30 pg (27-31); Mean Corpuscular Volume 92 fL (80-97); Mean Platelet Volume 10 um3 (7.4-10.4); Red Blood Count 3.38 10^6/ul (4.0-5.4); Red Cell Distribution Width 17 % (10.5-15); White Blood Count 9.9 10^3/ul (3.5-10.8)
[2017-02-17 05:53] LABS: Comments Flag Yes
[2017-02-17 05:54] LABS: Add Diff/Slide Review? Slide Review Added
[2017-02-17] MEDS: Levothyroxine TAB* 25 MCG TAB PO SCH (06:03)
[2017-02-17 06:09] LABS: BUN/Creatinine Ratio 27.8 (8-20); Calcium 8.2 mg/dL (8.6-10.3); EGFR African American 76.3 (>60); EGFR Non-African American 59.4 (>60); Potassium 4.2 mmol/L (3.5-5.0)
[2017-02-17 07:47] LABS: Magnesium 1.9 mg/dL (1.9-2.7)
[2017-02-17] MEDS: Mometasone/Formoter 200/5 MDI INH SCH ×2 (07:52→19:53)
[2017-02-17] MEDS: Tiotropium CAP.INH* CAP.INH/18 MCG INH SCH (07:54)
[2017-02-17] MEDS: Polyethylene Glycol 3350* 17 GM PACKET PO SCH (08:21)
[2017-02-17] MEDS: Omeprazole CAP* 20 MG PO SCH (08:22)
[2017-02-17] MEDS: Metoprolol Succinate XL TAB* 25 MG PO SCH (08:22)
[2017-02-17] MEDS: Aspirin EC Low Dose* 81 MG TAB.EC PO SCH (08:22)
[2017-02-17] MEDS: Docusate CAP* 100 MG PO SCH (08:22)
[2017-02-17] MEDS: Pregabalin CAP(*) 25 MG PO SCH ×4 (08:22→21:51)
[2017-02-17] MEDS: oxyCODONE TAB* 5 MG TAB PO PRN ×2 (08:23→15:42)
[2017-02-17] MEDS: Levalbuterol HFA INHALER* 1 PUFF MDI INH PRN ×2 (10:04→14:38)
[2017-02-17] MEDS: cefTRIAXone VIAL(*) 1,000 MG in NS 0.9% 50 ML* 50 ML IVPB SCH (10:34)
[2017-02-17] MEDS: Azithromycin IV(*) 500 MG in NS 0.9% 250 ML* 250 ML IVPB SCH (10:58)
[2017-02-17] MEDS ORDERED: Bisacodyl EC TAB* 5 MG PO ONE (11:00)
[2017-02-17] MEDS: Oxymorphone ER (NF) 5 MG TAB PO SCH (12:04)
[2017-02-17] MEDS: Albuterol 2.5 MG/3 ML NEB.SOL* (0.083%) INH PRN (12:55)
[2017-02-17] MEDS: LORazepam TAB(*) 0.5 MG PO PRN (14:05)
--- NOTE | 2017-02-17 14:05 | PN ---
Subjective Date of Service: 02/17/17 Interval History: HOSPITALIST PROGRESS NOTE Patient seen and examined at bedside. Still has some dyspnea, but less intense than before. Right sided chest pain is almost resolved. Family History: Unchanged from Admission Social History: Unchanged from Admission Past Medical History: Unchanged from Admission Objective Active Medications: Acetaminophen (Tylenol Tab*) 650 mg PO Q6H PRN PRN Reason: pain/fever Last Admin: 02/17/17 10:06 Dose: 650 mg Albuterol (Ventolin 2.5 Mg/3 Ml Neb.Stacie*) 2.5 mg INH Q4H PRN PRN Reason: SOB/WHEEZING Last Admin: 02/17/17 12:55 Dose: 2.5 mg Aspirin (Aspirin Ec Low Dose*) [facility] [place] Admin: 02/17/17 08:22 Dose: 81 mg Docusate Sodium (Colace Cap*) 200 mg PO QAM [facility] Last Admin: 02/17/17 08:22 Dose: 200 mg Ceftriaxone Sodium 1,000 mg/ (Sodium Chloride) 50 mls @ 200 mls/hr IVPB Q24H [facility] Last Admin: 02/17/17 10:34 Dose: 200 mls/hr Azithromycin 500 mg/ Sodium (Chloride) 250 mls @ 250 mls/hr IVPB Q24H [facility] Last Admin: 02/17/17 10:58 Dose: 250 mls/hr Levalbuterol HCl (Xopenex Hfa Inhaler*) 2 puff INH QID PRN PRN Reason: SOB/WHEEZING Last Admin: 02/17/17 10:04 Dose: 2 puff Levothyroxine Sodium (Synthroid Tab*) 25 mcg PO QAM@0600 [facility] Last Admin: 02/17/17 06:03 Dose: 25 mcg Lidocaine (Lidoderm 5% Patch*) 1 patch TRANSDERM BEDTIME [facility] Last Admin: 02/16/17 21:31 Dose: 1 patch Lorazepam (Ativan Tab(*)) 0.5 mg PO BID PRN PRN Reason: ANXIETY Last Admin: 02/16/17 13:25 Dose: 0.5 mg Metoprolol Succinate (Toprol Xl Tab*) 25 mg PO QAM [facility] Last Admin: 02/17/17 08:22 Dose: 25 mg Mometasone Furoate/Formoterol Fumar (Dulera 200/5 Mdi*) 2 puff INH BID [facility] PRN Reason: Protocol Last Admin: 02/17/17 07:52 Dose: 2 puff Morphine Sulfate (Morphine Inj (Syringe)*) 1 mg IV Q4H PRN PRN Reason: Air hunger Last Admin: 02/17/17 12:04 Dose: 1 mg Nitroglycerin (Nitroglycerin Tab 0.4 Mg*) 0.4 mg SL Q5M PRN PRN Reason: PAIN - CHEST Omeprazole (Prilosec Cap*) 20 mg PO DAILY@0730 [facility] Last Admin: 02/17/17 08:22 Dose: 20 mg Oxycodone HCl (Roxycodone Tab*) 15 mg PO Q4H PRN PRN Reason: PAIN Last Admin: 02/17/17 08:23 Dose: 15 mg Oxymorphone HCl (Opana Er (Nf)) 15 mg PO Q12H [facility] Last Admin: 02/17/17 12:04 Dose: 15 mg Pharmacy Profile Note (Coumadin Daily Reminder*) 0 note FOLLOW UP 1700 [facility] Last Admin: 02/16/17 17:23 Dose: Not Given Polyethylene Glycol/Electrolytes (Miralax*) 17 gm PO DAILY [facility] Last Admin: 02/17/17 08:21 Dose: 17 gm Polyvinyl Alcohol (Polyvinyl Alcohol 1.4% Opth*) 1 drop BOTH EYES Q2H PRN PRN Reason: DRY EYE Last Admin: 02/15/17 17:06 Dose: 1 drop Pregabalin (Lyrica Cap(*)) 25 mg PO QID [facility] Last Admin: 02/17/17 12:40 Dose: 25 mg Simethicone (Mylicon*) 160 mg PO HS PRN PRN Reason: INDIGESTION Tiotropium [place] (Spiriva Cap.Inh*) 1 cap INH QAM [facility] Last Admin: 02/17/17 07:54 Dose: 1 inhaler Warfarin Sodium (Coumadin Tab(*)) 3 mg PO ONCE@1700 ONE PRN Reason: Protocol Stop: 02/17/17 17:01 Vital Signs 02/17/17 02/17/17 02/17/17 11:50 12:04 12:40 Temperature 98.6 F Pulse Rate 92 Respiratory 24 24 23 Rate Blood Pressure 107/73 (mmHg) O2 Sat by Pulse 99 Oximetry Oxygen Devices in Use Now: Nasal Cannula - 5 liters Appearance: Pleasant elderly lady lying in bed in NAD. Eyes: No Scleral Icterus Ears/Nose/Mouth/Throat: Mucous Membranes Moist Neck: Trachea Midline Respiratory: Symmetrical Chest Expansion and Respiratory Effort, - - BS+ bilaterally with right base crackles Cardiovascular: - - Normal S1 and S2, irregularly irregular Abdominal: NL Sounds; No Tenderness; No Distention Extremities: No Edema Neurological: Alert and Oriented x 3, NL Muscle Strength and Tone Lines/Tubes/Other Access: Clean, Dry and Intact Peripheral IV Nutrition: Taking PO's Result Diagrams: 02/17/17 05:44 02/17/17 05:44 Assess/Plan/Problems-Billing Assessment: Mrs. Saldana is an 86yo F with PMH of Afib on Warfarin, COPD on home O2, chronic pain, hypothyroidism, diastolic CHF, HTN, CAD, who presented to ED with c/o dyspnea and right sided chest pain, found to have sepsis secondary to pneumonia. - Patient Problems (1) Severe sepsis Comment: - Patient met sepsis criteria on admission, with fever, tachycardia, leukopenia. - Also had RAZA and encephalopathy. - Source is RLL pneumonia. - Required neosynephrine <24h, but it was discontinued as she received more fluids. (2) Pneumonia Comment: - CxR showed RLL consolidation. - Legionella and pneumococcal Ag are negative. - Blood cultures show no growth so far and sputum is growing E. coli - follow sensitivities. - Continue Ceftriaxone and Zithromax #4. (3) Acute respiratory failure with hypoxia Comment: - Secondary to pneumonia. - Down to 5 liters NC - will transfer to Telemetry. (4) Acute renal failure Comment: - On CKD stage 3. - Resolved. (5) Chest pain Comment: - Right sided, pleuritic, secondary to pneumonia. - Troponin was negative. (6) Diastolic CHF Comment: - Some of her residual dyspnea could be associated with CHF. - Will give Lasix 20mg IV and monitor. (7) Hypothyroidism Comment: - TSH 3.73. - Continue current dose of synthroid. (8) Atrial fibrillation Comment: - Rate is controlled with metoprolol XL. - Diltiazem on hold for now. - INR is therapeutic - resume Warfarin today. (9) DVT prophylaxis Comment: - Therapeutic INR on Warfarin. (10) Full code status Status and Disposition: Inpatient. Transfer to Telemetry.
[2017-02-17] MEDS ORDERED: Furosemide IV* 10 MG/ML 2 ML VIAL (20 MG) IV ONE (14:21)
[2017-02-17] MEDS ORDERED: Warfarin TAB(*) 3 MG PO ONE (17:00)
[2017-02-17] MEDS: Lidocaine PATCH 5%* 1 PATCH TRANSDERM SCH (21:52)
[2017-02-18] MEDS: Oxymorphone ER (NF) 5 MG TAB PO SCH ×2 (00:33→12:44)
[2017-02-18] MEDS: Albuterol 2.5 MG/3 ML NEB.SOL* (0.083%) INH PRN ×3 (03:53→18:28)
[2017-02-18] MEDS: Morphine INJ* 2 MG/ML 1 ML SYRINGE IV PRN ×2 (03:58→21:40)
[2017-02-18 05:16] LABS: Hematocrit 33 % (35-47); Hemoglobin 10.2 g/dl (12.0-16.0); Mean Corpuscular HGB Conc 32 g/dl (31-36); Mean Corpuscular Hemoglobin 29 pg (27-31); Mean Corpuscular Volume 92 fL (80-97); Mean Platelet Volume 10 um3 (7.4-10.4); Red Blood Count 3.54 10^6/ul (4.0-5.4); Red Cell Distribution Width 17 % (10.5-15); White Blood Count 6.4 10^3/ul (3.5-10.8)
[2017-02-18 05:20] LABS: Add Diff/Slide Review? Slide Review Added; Comments Flag Yes
[2017-02-18 05:26] LABS: BUN/Creatinine Ratio 27.2 (8-20); Calcium 8.6 mg/dL (8.6-10.3); EGFR African American 74.4 (>60); EGFR Non-African American 57.9 (>60)
[2017-02-18] MEDS: Levothyroxine TAB* 25 MCG TAB PO SCH (05:45)
[2017-02-18] MEDS: Tiotropium CAP.INH* CAP.INH/18 MCG INH SCH (07:03)
[2017-02-18] MEDS: Mometasone/Formoter 200/5 MDI INH SCH ×2 (07:03→19:59)
[2017-02-18] MEDS: Omeprazole CAP* 20 MG PO SCH (07:25)
[2017-02-18] MEDS: LORazepam TAB(*) 0.5 MG PO PRN (07:26)
[2017-02-18] MEDS ORDERED: Furosemide IV* 10 MG/ML 2 ML VIAL (20 MG) IV ONE (08:42)
[2017-02-18] MEDS: Aspirin EC Low Dose* 81 MG TAB.EC PO SCH (09:18)
[2017-02-18] MEDS: Docusate CAP* 100 MG PO SCH (09:18)
[2017-02-18] MEDS: Pregabalin CAP(*) 25 MG PO SCH ×4 (09:18→21:46)
[2017-02-18] MEDS: Metoprolol Succinate XL TAB* 25 MG PO SCH (09:18)
[2017-02-18] MEDS: Polyethylene Glycol 3350* 17 GM PACKET PO SCH (09:19)
[2017-02-18] MEDS: cefTRIAXone VIAL(*) 1,000 MG in NS 0.9% 50 ML* 50 ML IVPB SCH (10:00)
[2017-02-18] MEDS: Diltiazem CD CAP* 120 MG PO SCH (10:00)
[2017-02-18] MEDS ORDERED: Metolazone TAB* 5 MG PO ONE (10:52)
[2017-02-18] MEDS ORDERED: Furosemide IV* 10 MG/ML VIAL (40 MG) IV ONE (11:30)
[2017-02-18] MEDS: Azithromycin IV(*) 500 MG in NS 0.9% 250 ML* 250 ML IVPB SCH (11:37)
--- NOTE | 2017-02-18 13:36 | CONS ---
CONSULTATION REPORT: DATE OF CONSULT: 02/18/17 REQUESTING PHYSICIAN: Dr. Maldonado. CONSULTING SERVICE: Infectious Disease. REASON FOR CONSULTATION: Pneumonia. IMPRESSION: 1. Right middle lobe pneumonia. Sputum sample was obtained. Gram stain showed gram-negative bacilli, it is growing E. coli, which is pansensitive. She had acute hypoxemic respiratory failure, which was present on admission, which is improving. She is down to 4 L supplemental oxygen, still feels dyspneic and wiped out. E. coli may be the primary pathogen, which may be more likely in the setting of severe chronic obstructive pulmonary disease. 2. Chronic obstructive pulmonary disease. 3. Allergy to PENICILLIN caused hives, allergy to CIPRO and SULFA. 4. Atrial fibrillation. RECOMMENDATION: Agree with ceftriaxone. We will stop azithromycin. She has already had 4 doses of it, which she has probably had all the benefit she will get from its anti-inflammatory effects at this point. Continue her ceftriaxone ; however, awaiting continued improvement in her oxygenation. Eventually we will be able to change her to Keflex 500 mg 3 times a day to complete her treatment. HISTORY OF PRESENT ILLNESS: This is an 86-year-old woman admitted with sudden onset of right chest pain, cough, dyspnea, came to the hospital on the and found to have a right middle lobe infiltrate, she was leukopenic, she is febrile to 102, her oxygen saturation was in the high 80s and initially she was on high-flow oxygen in the ICU, it has tapered down over time down to 4.5 L, she is saturating 98% now. She still feels dyspneic at rest. She has no more chest pain. Her appetite is decreased but starting to come back a little bit. PAST MEDICAL HISTORY: 1. Atrial fibrillation. 2. COPD on supplemental oxygen at home. 3. Chronic pain. 4. Hypothyroidism. 5. Diastolic congestive heart failure. 6. [id number] tricuspid regurgitation. 7. Moderate pulmonary hypertension. 8. Thrombocytopenia. 9. Peripheral neuropathy. 10. Hypertension. 11. Coronary artery disease. 12. Status post partial gastrectomy. 13. Status post partial thyroidectomy. 14. Status post cholecystectomy. 15. Status post carpal tunnel repair. MEDICATIONS: 1. Tylenol. 2. Albuterol. 3. Aspirin. 4. Diltiazem. 5. Lorazepam. 6. Levothyroxine. 7. Lidocaine patch. 8. Metoprolol. 9. Oxymorphone extended-release. 10. Pregabalin. 11. Ceftriaxone 1 g daily. 12. Azithromycin 500 mg daily. 13. Warfarin. ALLERGIES: CIPRO, CODEINE, PENICILLIN, which caused hives; nausea with BACTRIM ; difficulty breathing with FENTANYL. FAMILY HISTORY: The mother had brain tumor and coronary artery disease. Father had congestive heart failure. SOCIAL HISTORY: She lives in [place] by herself. No travel. REVIEW OF SYSTEMS: All negative to full review of systems except as noted above. PHYSICAL EXAM: Vital Signs: Temperature is 37, heart rate 90, respiratory rate 20, blood pressure 130/60, O2 sat 98% on 4.5 L. In general, she is awake, not in distress. She does get dyspneic while talking. Neurologic: She is oriented x3, follows all commands. HEENT: There is no conjunctival hemorrhage. Oropharynx without lesions. Neck is supple. Lymph nodes: There is no inguinal, axillary, or epitrochlear lymphadenopathy. Heart is irregularly irregular and tachycardic without murmurs. Lungs show decreased breath sounds with scattered rales at the right base. There is no egophony. Abdomen is soft, nontender, and nondistended. There are bowel sounds present. Skin: There is no rash or splinter hemorrhages. Musculoskeletal: No spine tenderness to palpation. No joint synovitis. DIAGNOSTIC STUDIES/LAB DATA: White blood cell count 6, hemoglobin 10, platelets 69. Creatinine 0.9, CRP 250. Urinalysis negative. Please see impressions and recommendations as outlined above, which I have discussed with Dr. Maldonado. Thanks for asking me to see Ms. Saldana in consultation. [id number]/[facility] #: [id number] [facility]
--- NOTE | 2017-02-18 14:35 | PN ---
Subjective Date of Service: 02/18/17 Interval History: HOSPITALIST PROGRESS NOTE Patient seen and examined at bedside. She feels some improvement, but still dyspneic with minimal exertion. Not as "wiped out" as on admission. Cough still present, but sputum production has decreased. Family History: Unchanged from Admission Social History: Unchanged from Admission Past Medical History: Unchanged from Admission Objective Active Medications: Acetaminophen (Tylenol Tab*) 650 mg PO Q6H PRN PRN Reason: pain/fever Last Admin: 02/17/17 10:06 Dose: 650 mg Albuterol (Ventolin 2.5 Mg/3 Ml Neb.Stacie*) 2.5 mg INH Q4H PRN PRN Reason: SOB/WHEEZING Last Admin: 02/18/17 07:04 Dose: 2.5 mg Aspirin (Aspirin Ec Low Dose*) [facility] [place] Last Admin: 02/18/17 09:18 Dose: 81 mg Diltiazem HCl (Cardizem Cd Cap*) 120 mg PO DAILY [facility] Last Admin: 02/18/17 10:00 Dose: 120 mg Docusate Sodium (Colace Cap*) [facility] [place] Last Admin: 02/18/17 09:18 Dose: 200 mg Ceftriaxone Sodium 1,000 mg/ (Sodium Chloride) 50 mls @ 200 mls/hr IVPB Q24H [facility] Last Admin: 02/18/17 10:00 Dose: 200 mls/hr Levalbuterol HCl (Xopenex Hfa Inhaler*) 2 puff INH QID PRN PRN Reason: SOB/WHEEZING Last Admin: 02/17/17 14:38 Dose: 2 puff Levothyroxine Sodium (Synthroid Tab*) 25 mcg PO QAM@0600 [facility] Last Admin: 02/18/17 05:45 Dose: 25 mcg Lidocaine (Lidoderm 5% Patch*) 1 patch TRANSDERM BEDTIME [facility] Last Admin: 02/17/17 21:52 Dose: 1 patch Lorazepam (Ativan Tab(*)) 0.5 mg PO BID PRN PRN Reason: ANXIETY Last Admin: 02/18/17 07:26 Dose: 0.5 mg Metoprolol Succinate (Toprol Xl Tab*) 25 mg PO QAM [facility] Last Admin: 02/18/17 09:18 Dose: 25 mg Mometasone Furoate/Formoterol Fumar (Dulera 200/5 Mdi*) 2 puff INH BID [facility] PRN Reason: Protocol Last Admin: 02/18/17 07:03 Dose: 2 puff Morphine Sulfate (Morphine Inj (Syringe)*) 1 mg IV Q4H PRN PRN Reason: Air hunger Last Admin: 02/18/17 03:58 Dose: 1 mg Nitroglycerin (Nitroglycerin Tab 0.4 Mg*) 0.4 mg SL Q5M PRN PRN Reason: PAIN - CHEST Omeprazole (Prilosec Cap*) 20 mg PO DAILY@0730 [facility] Last Admin: 02/18/17 07:25 Dose: 20 mg Oxycodone HCl (Roxycodone Tab*) 15 mg PO Q4H PRN PRN Reason: PAIN Last Admin: 02/17/17 15:42 Dose: 15 mg Oxymorphone HCl (Opana Er (Nf)) 15 mg PO Q12H [facility] Last Admin: 02/18/17 12:44 Dose: 15 mg Pharmacy Profile Note (Coumadin Daily Reminder*) 0 note FOLLOW UP 1700 [facility] Last Admin: 02/17/17 17:03 Dose: 1 note Polyethylene Glycol/Electrolytes (Miralax*) 17 gm PO DAILY [facility] Last Admin: 02/18/17 09:19 Dose: Not Given Polyvinyl Alcohol (Polyvinyl Alcohol 1.4% Opth*) 1 drop BOTH EYES Q2H PRN PRN Reason: DRY EYE Last Admin: 02/15/17 17:06 Dose: 1 drop Pregabalin (Lyrica Cap(*)) 25 mg PO QID [facility] Last Admin: 02/18/17 12:44 Dose: 25 mg Simethicone (Mylicon*) 160 mg PO HS PRN PRN Reason: INDIGESTION Tiotropium [place] (Spiriva Cap.Inh*) 1 cap INH QAM [facility] Last Admin: 02/18/17 07:03 Dose: 1 cap Warfarin Sodium (Coumadin Tab(*)) 2 mg PO ONCE@1700 ONE PRN Reason: Protocol Stop: 02/18/17 17:01 Vital Signs 02/18/17 02/18/17 12:20 12:44 Temperature 99.0 F Pulse Rate 79 Respiratory 16 16 Rate Blood Pressure 112/62 (mmHg) O2 Sat by Pulse 98 Oximetry Oxygen Devices in Use Now: - - Oxymask 4 liters Appearance: Elderly lady sitting up in a chair in NAD. Eyes: No Scleral Icterus Ears/Nose/Mouth/Throat: Mucous Membranes Moist Neck: Trachea Midline Respiratory: Symmetrical Chest Expansion and Respiratory Effort, - - BS+ bilaterally with crackles on right base Cardiovascular: - - Normal S1 and S2, irregularly irregular Abdominal: NL Sounds; No Tenderness; No Distention Extremities: - - Mild bilateral LE and UE edema Neurological: Alert and Oriented x 3, NL Muscle Strength and Tone Lines/Tubes/Other Access: Clean, Dry and Intact Peripheral IV Nutrition: Taking PO's Result Diagrams: 02/18/17 04:57 02/18/17 04:57 Assess/Plan/Problems-Billing Assessment: Mrs. Saldana is an 86yo F with PMH of Afib on Warfarin, COPD on home O2, chronic pain, hypothyroidism, diastolic CHF, HTN, CAD, who presented to ED with c/o dyspnea and right sided chest pain, found to have sepsis secondary to pneumonia. - Patient Problems (1) Severe sepsis Comment: - Patient met sepsis criteria on admission, with fever, tachycardia, leukopenia. - Also had RAZA and encephalopathy. - Source is RLL pneumonia. - Required neosynephrine <24h, but it was discontinued as she received more fluids. (2) E. coli pneumonia Comment: - CxR showed RLL consolidation. - Legionella and pneumococcal Ag are negative. - Blood cultures show no growth so far and sputum grew pansensitive E. coli. - Continue Ceftriaxone and Zithromax #5. - ID input appreciated. (3) Acute respiratory failure with hypoxia Comment: - Secondary to pneumonia and CHF exacerbation. - Down to 4 liters NC. (4) Acute diastolic (congestive) heart failure Comment: - With acute CHF exacerbation now due to aggressive fluid resuscitation required initially. Gained ~30lbs since admission. - Continue diuresis with Furosemide. - Monitor I/Os and daily weights. (5) Acute renal failure Comment: - On CKD stage 3. - Resolved. (6) Chest pain Comment: - Right sided, pleuritic, secondary to pneumonia. - Troponin was negative. (7) Hypothyroidism Comment: - TSH 3.73. - Continue current dose of synthroid. (8) Atrial fibrillation Comment: - Rate is uncontrolled today. - Continue metoprolol XL and as BP has improved, will resume Diltiazem. - INR is therapeutic - continue Warfarin and monitor INR. (9) DVT prophylaxis Comment: - Therapeutic INR on Warfarin. (10) Full code status (11) Physical deconditioning Comment: - PT/OT. - Will likely need placement for rehab. Status and Disposition: Inpatient.
[2017-02-18] MEDS ORDERED: Warfarin TAB(*) 2 MG PO ONE (17:00)
[2017-02-18] MEDS: Lidocaine PATCH 5%* 1 PATCH TRANSDERM SCH (21:47)
[2017-02-18] MEDS: Artificial Tears* 15 ML BTL BOTH EYES PRN (22:00)
[2017-02-19] MEDS: Oxymorphone ER (NF) 5 MG TAB PO SCH ×2 (00:06→12:27)
[2017-02-19] MEDS: Morphine INJ* 2 MG/ML 1 ML SYRINGE IV PRN ×3 (04:58→21:25)
[2017-02-19] MEDS: Albuterol 2.5 MG/3 ML NEB.SOL* (0.083%) INH PRN ×2 (05:02→20:59)
[2017-02-19 05:30] LABS: Comments Flag Yes; Hematocrit 30 % (35-47); Hemoglobin 9.6 g/dl (12.0-16.0); Mean Corpuscular HGB Conc 32 g/dl (31-36); Mean Corpuscular Hemoglobin 29 pg (27-31); Mean Corpuscular Volume 90 fL (80-97); Mean Platelet Volume 9 um3 (7.4-10.4); Red Cell Distribution Width 16 % (10.5-15); White Blood Count 5.5 10^3/ul (3.5-10.8)
[2017-02-19 05:31] LABS: Add Diff/Slide Review? Slide Review Added
[2017-02-19 05:41] LABS: BUN/Creatinine Ratio 27.9 (8-20); Calcium 8.2 mg/dL (8.6-10.3); EGFR African American 80.5 (>60); EGFR Non-African American 62.6 (>60); Potassium 3.5 mmol/L (3.5-5.0)
[2017-02-19] MEDS: Levothyroxine TAB* 25 MCG TAB PO SCH (06:12)
[2017-02-19] MEDS: Docusate CAP* 100 MG PO SCH (07:50)
[2017-02-19] MEDS: Omeprazole CAP* 20 MG PO SCH (07:50)
[2017-02-19] MEDS: Pregabalin CAP(*) 25 MG PO SCH ×4 (07:50→20:55)
[2017-02-19] MEDS: Aspirin EC Low Dose* 81 MG TAB.EC PO SCH (07:50)
[2017-02-19] MEDS: Metoprolol Succinate XL TAB* 25 MG PO SCH (07:50)
[2017-02-19] MEDS: Diltiazem CD CAP* 120 MG PO SCH (07:50)
[2017-02-19] MEDS: Polyethylene Glycol 3350* 17 GM PACKET PO SCH (07:51)
[2017-02-19] MEDS: Levalbuterol HFA INHALER* 1 PUFF MDI INH PRN (08:02)
[2017-02-19] MEDS: Mometasone/Formoter 200/5 MDI INH SCH ×2 (08:02→20:59)
[2017-02-19] MEDS: Tiotropium CAP.INH* CAP.INH/18 MCG INH SCH (08:02)
[2017-02-19] MEDS ORDERED: Metolazone TAB* 5 MG PO ONE (08:26)
[2017-02-19] MEDS ORDERED: Furosemide IV* 10 MG/ML VIAL (40 MG) IV ONE (09:00)
[2017-02-19] MEDS: Potassium Chlor TAB* 20 MEQ TAB.ER PO SCH ×2 (09:20→20:57)
[2017-02-19] MEDS: cefTRIAXone VIAL(*) 1,000 MG in NS 0.9% 50 ML* 50 ML IVPB SCH (10:08)
[2017-02-19] MEDS: oxyCODONE TAB* 5 MG TAB PO PRN (10:47)
--- NOTE | 2017-02-19 13:13 | PN ---
Subjective Date of Service: 02/19/17 Interval History: HOSPITALIST PROGRESS NOTE Patient seen and examined at bedside. She's frustrated with her breathing and slow weight loss. Despite her complaints , she is comfortable, denies cough, right sided chest pain is improved, tolerating diet well. Family History: Unchanged from Admission Social History: Unchanged from Admission Past Medical History: Unchanged from Admission Objective Active Medications: Acetaminophen (Tylenol Tab*) 650 mg PO Q6H PRN PRN Reason: pain/fever Last Admin: 02/17/17 10:06 Dose: 650 mg Albuterol (Ventolin 2.5 Mg/3 Ml Neb.Stacie*) 2.5 mg INH Q4H PRN PRN Reason: SOB/WHEEZING Last Admin: 02/19/17 05:02 Dose: 2.5 mg Aspirin (Aspirin Ec Low Dose*) 81 mg PO QAM [facility] Last Admin: 02/19/17 07:50 Dose: 81 mg Diltiazem HCl (Cardizem Cd Cap*) 120 mg PO DAILY [facility] Last Admin: 02/19/17 07:50 Dose: 120 mg Docusate Sodium (Colace Cap*) 200 mg PO QAM [facility] Last Admin: 02/19/17 07:50 Dose: 200 mg Ceftriaxone Sodium 1,000 mg/ (Sodium Chloride) 50 mls @ 200 mls/hr IVPB Q24H [facility] Last Admin: 02/19/17 10:08 Dose: 200 mls/hr Levalbuterol HCl (Xopenex Hfa Inhaler*) 2 puff INH QID PRN PRN Reason: SOB/WHEEZING Last Admin: 02/19/17 08:02 Dose: 2 puff Levothyroxine Sodium (Synthroid Tab*) 25 mcg PO QAM@0600 [facility] Last Admin: 02/19/17 06:12 Dose: 25 mcg Lidocaine (Lidoderm 5% Patch*) 1 patch TRANSDERM BEDTIME [facility] Last Admin: 02/18/17 21:47 Dose: 1 patch Lorazepam (Ativan Tab(*)) 0.5 mg PO BID PRN PRN Reason: ANXIETY Last Admin: 02/18/17 07:26 Dose: 0.5 mg Metoprolol Succinate (Toprol Xl Tab*) 25 mg PO QAM [facility] Last Admin: 02/19/17 07:50 Dose: 25 mg Mometasone Furoate/Formoterol Fumar (Dulera 200/5 Mdi*) 2 puff INH BID [facility] PRN Reason: Protocol Last Admin: 02/19/17 08:02 Dose: 2 puff Morphine Sulfate (Morphine Inj (Syringe)*) 1 mg IV Q4H PRN PRN Reason: Air hunger Last Admin: 02/19/17 04:58 Dose: 1 mg Nitroglycerin (Nitroglycerin Tab 0.4 Mg*) 0.4 mg SL Q5M PRN PRN Reason: PAIN - CHEST Omeprazole (Prilosec Cap*) 20 mg PO DAILY@0730 [facility] Last Admin: 02/19/17 07:50 Dose: 20 mg Oxycodone HCl (Roxycodone Tab*) 15 mg PO Q4H PRN PRN Reason: PAIN Last Admin: 02/19/17 10:47 Dose: 15 mg Oxymorphone HCl (Opana Er (Nf)) 15 mg PO Q12H [facility] Last Admin: 02/19/17 12:27 Dose: 15 mg Pharmacy Profile Note (Coumadin Daily Reminder*) 0 note FOLLOW UP 1700 [facility] Last Admin: 02/19/17 07:00 Dose: Not Given Polyethylene Glycol/Electrolytes (Miralax*) 17 gm PO DAILY [facility] Last Admin: 02/19/17 07:51 Dose: 17 gm Polyvinyl Alcohol (Polyvinyl Alcohol 1.4% Opth*) 1 drop BOTH EYES Q2H PRN PRN Reason: DRY EYE Last Admin: 02/18/17 22:00 Dose: 1 drop Potassium Chloride (Klor Con Er Tab*) 40 meq PO BID [facility] Last Admin: 02/19/17 09:20 Dose: 40 meq Pregabalin (Lyrica Cap(*)) 25 mg PO QID [facility] Last Admin: 02/19/17 12:27 Dose: 25 mg Simethicone (Mylicon*) 160 mg PO [facility] PRN PRN Reason: INDIGESTION Last Admin: 02/19/17 10:47 Dose: 160 mg Tiotropium [place] (Spiriva Cap.Inh*) 1 cap INH QAM [facility] Last Admin: 02/19/17 08:02 Dose: 1 cap Vital Signs 02/19/17 02/19/17 02/19/17 10:47 12:02 12:27 Temperature 98.7 F Pulse Rate 85 Respiratory 24 18 18 Rate Blood Pressure 104/56 (mmHg) O2 Sat by Pulse 96 Oximetry Oxygen Devices in Use Now: - - Oxymask 4.5 liters Appearance: Elderly lady sitting up in a chair in NAD. Eyes: No Scleral Icterus Ears/Nose/Mouth/Throat: Mucous Membranes Moist Neck: Trachea Midline Respiratory: Symmetrical Chest Expansion and Respiratory Effort, - - BS+ bilaterally with bibasilar rales Cardiovascular: - - Normal S1 and S2, irregularly irregular Extremities: - - Mild bilateral LE edema Neurological: Alert and Oriented x 3, NL Muscle Strength and Tone Lines/Tubes/Other Access: Clean, Dry and Intact Peripheral IV Nutrition: Taking PO's Result Diagrams: 02/19/17 05:15 02/19/17 05:15 Assess/Plan/Problems-Billing Assessment: Mrs. Saldana is an 86yo F with PMH of Afib on Warfarin, COPD on home O2, chronic pain, hypothyroidism, diastolic CHF, HTN, CAD, who presented to ED with c/o dyspnea and right sided chest pain, found to have sepsis secondary to pneumonia. - Patient Problems (1) Severe sepsis Comment: - Patient met sepsis criteria on admission, with fever, tachycardia, leukopenia. - Also had RAZA and encephalopathy. - Source is RLL pneumonia. - Required neosynephrine <24h, but it was discontinued as she received more fluids. (2) E. coli pneumonia Comment: - CxR showed RLL consolidation. - Legionella and pneumococcal Ag are negative. - Blood cultures show no growth so far and sputum grew pansensitive E. coli. - Continue Ceftriaxone #6 and d/c Zithromax. - ID input appreciated. (3) Acute respiratory failure with hypoxia Comment: - Secondary to pneumonia and CHF exacerbation. - Down to 4.5 liters NC. (4) Acute diastolic (congestive) heart failure Comment: - With acute CHF exacerbation now due to aggressive fluid resuscitation required initially. Gained ~30lbs since admission. - Continue diuresis with Furosemide. - Lost 6 lbs over the last 24h. - Monitor I/Os and daily weights. (5) Acute renal failure Comment: - On CKD stage 3. - Resolved. (6) Chest pain Comment: - Right sided, pleuritic, secondary to pneumonia. - Troponin was negative. (7) Hypothyroidism Comment: - TSH 3.73. - Continue current dose of synthroid. (8) Atrial fibrillation Comment: - Rate is better controlled. - Continue metoprolol XL and Diltiazem. - INR is therapeutic - continue Warfarin and monitor INR. (9) DVT prophylaxis Comment: - Therapeutic INR on Warfarin. (10) Full code status (11) Physical deconditioning Comment: - PT/OT. - Plan for placement at [facility] for rehab. Status and Disposition: Inpatient.
[2017-02-19] MEDS: Warfarin TAB(*) 2 MG PO SCH (16:53)
[2017-02-19] MEDS: Lidocaine PATCH 5%* 1 PATCH TRANSDERM SCH (21:10)
[2017-02-20] MEDS: Oxymorphone ER (NF) 5 MG TAB PO SCH ×2 (00:01→13:32)
[2017-02-20] MEDS: Morphine INJ* 2 MG/ML 1 ML SYRINGE IV PRN (01:50)
[2017-02-20] MEDS: Acetaminophen TAB* 325 MG PO PRN ×2 (03:44→17:47)
[2017-02-20 05:20] LABS: Hematocrit 30 % (35-47); Hemoglobin 9.5 g/dl (12.0-16.0); Mean Corpuscular HGB Conc 32 g/dl (31-36); Mean Corpuscular Hemoglobin 29 pg (27-31); Mean Corpuscular Volume 91 fL (80-97); Mean Platelet Volume 10 um3 (7.4-10.4); Red Cell Distribution Width 16 % (10.5-15); White Blood Count 7.5 10^3/ul (3.5-10.8)
[2017-02-20 05:23] LABS: Add Diff/Slide Review? Slide Review Added; Comments Flag Yes
[2017-02-20 05:33] LABS: BUN/Creatinine Ratio 27.4 (8-20); Calcium 8.2 mg/dL (8.6-10.3); EGFR African American 71.7 (>60); EGFR Non-African American 55.8 (>60); Potassium 4.3 mmol/L (3.5-5.0)
[2017-02-20] MEDS: Levothyroxine TAB* 25 MCG TAB PO SCH (05:41)
[2017-02-20] MEDS: Omeprazole CAP* 20 MG PO SCH (07:46)
[2017-02-20] MEDS: Polyethylene Glycol 3350* 17 GM PACKET PO SCH (07:46)
[2017-02-20] MEDS: Diltiazem CD CAP* 120 MG PO SCH (07:47)
[2017-02-20] MEDS: Metoprolol Succinate XL TAB* 25 MG PO SCH (07:47)
[2017-02-20] MEDS: Potassium Chlor TAB* 20 MEQ TAB.ER PO SCH ×2 (07:48→20:58)
[2017-02-20] MEDS: Docusate CAP* 100 MG PO SCH (07:50)
[2017-02-20] MEDS: oxyCODONE TAB* 5 MG TAB PO PRN ×3 (07:51→23:23)
[2017-02-20] MEDS: Aspirin EC Low Dose* 81 MG TAB.EC PO SCH (07:52)
[2017-02-20] MEDS: Pregabalin CAP(*) 25 MG PO SCH ×4 (07:52→20:58)
[2017-02-20] MEDS: LORazepam TAB(*) 0.5 MG PO PRN ×2 (07:53→17:49)
[2017-02-20] MEDS: Mometasone/Formoter 200/5 MDI INH SCH ×2 (07:58→19:28)
[2017-02-20] MEDS: Tiotropium CAP.INH* CAP.INH/18 MCG INH SCH (07:59)
[2017-02-20] MEDS: cefTRIAXone VIAL(*) 1,000 MG in NS 0.9% 50 ML* 50 ML IVPB SCH (10:11)
[2017-02-20] MEDS: Albuterol 2.5 MG/3 ML NEB.SOL* (0.083%) INH PRN ×3 (10:20→21:25)
[2017-02-20] MEDS ORDERED: Furosemide IV* 10 MG/ML VIAL (40 MG) IV ONE ×2 (16:17→22:30)
--- NOTE | 2017-02-20 16:24 | PN ---
Subjective Date of Service: 02/20/17 Interval History: Pt still "can't breathe". Family History: Unchanged from Admission Social History: Unchanged from Admission Past Medical History: Unchanged from Admission Objective Active Medications: Acetaminophen (Tylenol Tab*) 650 mg PO Q6H PRN PRN Reason: pain/fever Last Admin: 02/20/17 03:44 Dose: 650 mg Albuterol (Ventolin 2.5 Mg/3 Ml Neb.Stacie*) 2.5 mg INH Q4H PRN PRN Reason: SOB/WHEEZING Last Admin: 02/20/17 10:20 Dose: 2.5 mg Aspirin (Aspirin Ec Low Dose*) 81 mg PO QAM [facility] Last Admin: 02/20/17 07:52 Dose: 81 mg Diltiazem HCl (Cardizem Cd Cap*) 120 mg PO DAILY [facility] Last Admin: 02/20/17 07:47 Dose: 120 mg Docusate Sodium (Colace Cap*) 200 mg PO QAM [facility] Last Admin: 02/20/17 07:50 Dose: 200 mg Furosemide (Lasix Iv*) 40 mg IV ONCE ONE Stop: 02/20/17 16:18 Ceftriaxone Sodium 1,000 mg/ (Sodium Chloride) 50 mls @ 200 mls/hr IVPB Q24H [facility] Last Admin: 02/20/17 10:11 Dose: 200 mls/hr Levalbuterol HCl (Xopenex Hfa Inhaler*) 2 puff INH QID PRN PRN Reason: SOB/WHEEZING Last Admin: 02/19/17 08:02 Dose: 2 puff Levothyroxine Sodium (Synthroid Tab*) 25 mcg PO QAM@0600 [facility] Last Admin: 02/20/17 05:41 Dose: 25 mcg Lidocaine (Lidoderm 5% Patch*) 1 patch TRANSDERM BEDTIME [facility] Last Admin: 02/19/17 21:10 Dose: 1 patch Lorazepam (Ativan Tab(*)) 0.5 mg PO BID PRN PRN Reason: ANXIETY Last Admin: 02/20/17 07:53 Dose: 0.5 mg Metoprolol Succinate (Toprol Xl Tab*) 25 mg PO QAM [facility] Last Admin: 02/20/17 07:47 Dose: 25 mg Mometasone Furoate/Formoterol Fumar (Dulera 200/5 Mdi*) 2 puff INH BID [facility] PRN Reason: Protocol Last Admin: 02/20/17 07:58 Dose: 2 puff Morphine Sulfate (Morphine Inj (Syringe)*) 1 mg IV Q4H PRN PRN Reason: Air hunger Last Admin: 02/20/17 01:50 Dose: 1 mg Nitroglycerin (Nitroglycerin Tab 0.4 Mg*) 0.4 mg SL Q5M PRN PRN Reason: PAIN - CHEST Omeprazole (Prilosec Cap*) 20 mg PO DAILY@0730 [facility] Last Admin: 02/20/17 07:46 Dose: 20 mg Oxycodone HCl (Roxycodone Tab*) 15 mg PO Q4H PRN PRN Reason: PAIN Last Admin: 02/20/17 07:51 Dose: 15 mg Oxymorphone HCl (Opana Er (Nf)) 15 mg PO Q12H [facility] Last Admin: 02/20/17 13:32 Dose: 15 mg Pharmacy Profile Note (Coumadin Daily Reminder*) 0 note FOLLOW UP 1700 [facility] Last Admin: 02/19/17 16:55 Dose: 1 note Pharmacy Profile Note (Lidocaine Patch Remove*) 1 note PATCH OFF 0900 [facility] Polyethylene Glycol/Electrolytes (Miralax*) 17 gm PO DAILY [facility] Last Admin: 02/20/17 07:46 Dose: 17 gm Polyvinyl Alcohol (Polyvinyl Alcohol 1.4% Opth*) 1 drop BOTH EYES Q2H PRN PRN Reason: DRY EYE Last Admin: 02/18/17 22:00 Dose: 1 drop Potassium Chloride (Klor Con Er Tab*) 40 meq PO BID [facility] Last Admin: 02/20/17 07:48 Dose: 40 meq Pregabalin (Lyrica Cap(*)) 25 mg PO QID [facility] Last Admin: 02/20/17 13:34 Dose: 25 mg Simethicone (Mylicon*) 160 mg PO PCHS PRN PRN Reason: INDIGESTION Last Admin: 02/19/17 10:47 Dose: 160 mg Tiotropium Sterling (Spiriva Cap.Inh*) 1 cap INH QAM [facility] Last Admin: 02/20/17 07:59 Dose: 1 cap Warfarin Sodium (Coumadin Tab(*)) 2 mg PO DAILY@1700 [facility] PRN Reason: Protocol Last Admin: 02/19/17 16:53 Dose: 2 mg Vital Signs 02/19/17 02/19/17 02/19/17 16:52 17:04 18:04 Temperature Pulse Rate Respiratory 20 20 18 Rate Blood Pressure (mmHg) O2 Sat by Pulse Oximetry 02/19/17 02/19/17 02/19/17 18:52 19:41 20:00 Temperature 98.4 F Pulse Rate 66 81 Respiratory 20 14 20 Rate Blood Pressure 118/50 (mmHg) O2 Sat by Pulse 95 97 Oximetry 02/19/17 02/19/17 02/19/17 20:55 21:00 21:25 Temperature Pulse Rate 81 Respiratory 14 20 16 Rate Blood Pressure (mmHg) O2 Sat by Pulse 97 Oximetry 02/19/17 02/19/17 02/20/17 22:25 22:55 00:01 Temperature Pulse Rate Respiratory 16 16 16 Rate Blood Pressure (mmHg) O2 Sat by Pulse Oximetry 02/20/17 02/20/17 02/20/17 01:50 02:01 02:50 Temperature Pulse Rate Respiratory 20 16 20 Rate Blood Pressure (mmHg) O2 Sat by Pulse Oximetry 02/20/17 02/20/17 02/20/17 03:38 04:04 07:44 Temperature 100.2 F 98.1 F Pulse Rate 119 86 103 Respiratory 20 16 Rate Blood Pressure 110/52 99/44 (mmHg) O2 Sat by Pulse 95 98 Oximetry 02/20/17 02/20/17 02/20/17 07:51 07:52 07:53 Temperature Pulse Rate Respiratory 16 16 16 Rate Blood Pressure (mmHg) O2 Sat by Pulse Oximetry 02/20/17 02/20/17 02/20/17 07:58 08:00 09:51 Temperature Pulse Rate 94 Respiratory 16 20 Rate Blood Pressure (mmHg) O2 Sat by Pulse 95 Oximetry 02/20/17 02/20/17 02/20/17 09:52 09:53 11:19 Temperature 97.7 F Pulse Rate 98 Respiratory 20 20 20 Rate Blood Pressure 96/46 (mmHg) O2 Sat by Pulse 95 Oximetry 02/20/17 02/20/17 13:32 13:34 Temperature Pulse Rate Respiratory 20 20 Rate Blood Pressure (mmHg) O2 Sat by Pulse Oximetry Oxygen Devices in Use Now: Nasal Cannula - at 4 L, 02 sat 90% Appearance: 86 yo f in nAd, aAOx3 Eyes: No Scleral Icterus, PERRLA Ears/Nose/Mouth/Throat: NL Teeth, Lips, Gums, Mucous Membranes Moist Neck: NL Appearance and Movements; NL JVP, Trachea Midline Respiratory: Symmetrical Chest Expansion and Respiratory Effort, - - distant breath sounds b/l Cardiovascular: NL Sounds; No Murmurs; No JVD, - - irregular Abdominal: NL Sounds; No Tenderness; No Distention, No Hepatosplenomegaly Lymphatic: No Cervical Adenopathy Extremities: No Clubbing, Cyanosis, - - +2 pitting pedal edema b/l Skin: No Rash or Ulcers, No Nodules or Sclerosis Neurological: Alert and Oriented x 3, NL Muscle Strength and Tone Result Diagrams: 02/20/17 05:12 02/20/17 05:12 Additional Lab and Data: Lab Results 02/14/17 02/14/17 02/14/17 Range/Units 09:05 09:05 09:05 WBC 3.1 L (3.5-10.8) 10^3/ul RBC 4.26 (4.0-5.4) 10^6/ul Hgb 12.6 (12.0-16.0) g/dl Hct 39 (35-47) % MCV 92 (80-97) fL MCH 30 (27-31) pg MCHC 32 (31-36) g/dl RDW 17 H (10.5-15) % Plt Count 120 L (150-450) 10^3/ul MPV 9 (7.4-10.4) um3 Immature Gran % (Auto) 34 H (0-9) % Neut % (Auto) 87.9 H (38-83) % Lymph % (Auto) 7.6 L (25-47) % Hayes % (Auto) 4.1 (1-9) % Eos % (Auto) 0 (0-6) % Baso % (Auto) 0.4 (0-2) % Absolute Neuts (auto) 2.7 (1.5-7.7) 10^3/ul Absolute Lymphs (auto) 0.2 L (1.0-4.8) 10^3/ul Absolute Monos (auto) 0.1 (0-0.8) 10^3/ul Absolute Eos (auto) 0 (0-0.6) 10^3/ul Absolute Basos (auto) 0 (0-0.2) 10^3/ul Absolute Nucleated RBC 0 10^3/ul Neutrophils % 48 (38-83) % Band Neutrophils % 31 H (0-8) % Lymphocytes % 10 L (25-47) % Monocytes % 8 (0-13) % Metamyelocytes % 3 H (0-2) % Nucleated RBC % 0.1 Normal RBC Morphology Not Reportable Elliptocytes 1+ INR (Anticoag Therapy) (0.89-1.11) APTT (26.0-36.3) seconds Patient Temperature ABG pH (7.35-7.45) ABG pCO2 (35-45) mmHg ABG pO2 (80-100) mmHg ABG HCO3 (19-31) mmol/L ABG O2 Saturation (95-98) % ABG Base Excess (-2.0-2.0) Respiration Rate O2 Delivery Device Ventilator Type Vent Mode FiO2 Inspiratory Time PEEP Pressure Support Pressure Control EPAP IPAP BiPAP Sodium 141 (133-145) mmol/L Potassium 3.7 (3.5-5.0) mmol/L Chloride 103 (101-111) mmol/L Carbon Dioxide 31 (22-32) mmol/L Anion Gap 7 (2-11) mmol/L BUN 43 H (6-24) mg/dL Creatinine 1.58 H (0.51-0.95) mg/dL Est GFR ( Amer) 39.9 (>60) Est GFR (Non-Af Amer) 31.0 (>60) BUN/Creatinine Ratio 27.2 H (8-20) Glucose 151 H (70-100) mg/dL Lactic Acid 1.8 (0.5-2.0) mmol/L Calcium 8.7 (8.6-10.3) mg/dL Total Bilirubin 1.00 (0.2-1.0) mg/dL AST 18 (13-39) U/L ALT 17 (7-52) U/L Alkaline Phosphatase 85 (34-104) U/L Troponin I 0.02 (<0.04) ng/mL C-Reactive Protein 24.79 H (< 5.00) mg/L B-Natriuretic Peptide ( - 100) pg/mL Total Protein 6.6 (6.4-8.9) g/dL Albumin 3.3 (3.2-5.2) g/dL Globulin 3.3 (2-4) g/dL Albumin/Globulin Ratio 1.0 (1-3) 02/14/17 02/14/17 02/14/17 Range/Units 09:05 09:05 09:15 WBC (3.5-10.8) 10^3/ul RBC (4.0-5.4) 10^6/ul Hgb (12.0-16.0) g/dl Hct (35-47) % MCV (80-97) fL MCH (27-31) pg MCHC (31-36) g/dl RDW (10.5-15) % Plt Count (150-450) 10^3/ul MPV (7.4-10.4) um3 Immature Gran % (Auto) (0-9) % Neut % (Auto) (38-83) % Lymph % (Auto) (25-47) % Hayes % (Auto) (1-9) % Eos % (Auto) (0-6) % Baso % (Auto) (0-2) % Absolute Neuts (auto) (1.5-7.7) 10^3/ul Absolute Lymphs (auto) (1.0-4.8) 10^3/ul Absolute Monos (auto) (0-0.8) 10^3/ul Absolute Eos (auto) (0-0.6) 10^3/ul Absolute Basos (auto) (0-0.2) 10^3/ul Absolute Nucleated RBC 10^3/ul Neutrophils % (38-83) % Band Neutrophils % (0-8) % Lymphocytes % (25-47) % Monocytes % (0-13) % Metamyelocytes % (0-2) % Nucleated RBC % Normal RBC Morphology Elliptocytes INR (Anticoag Therapy) 2.83 H (0.89-1.11) APTT 40.0 H (26.0-36.3) seconds Patient Temperature Not Reportable ABG pH 7.41 (7.35-7.45) ABG pCO2 50 H (35-45) mmHg ABG pO2 62 L (80-100) mmHg ABG HCO3 29.4 (19-31) mmol/L ABG O2 Saturation 93.5 L (95-98) % ABG Base Excess 5.9 H (-2.0-2.0) Respiration Rate Not Reportable O2 Delivery Device Oxymask Ventilator Type Not Reportable Vent Mode Not Reportable FiO2 Not Reportable Inspiratory Time Not Reportable PEEP Not Reportable Pressure Support Not Reportable Pressure Control Not Reportable EPAP Not Reportable IPAP Not Reportable BiPAP Not Reportable Sodium (133-145) mmol/L Potassium (3.5-5.0) mmol/L Chloride (101-111) mmol/L Carbon Dioxide (22-32) mmol/L Anion Gap (2-11) mmol/L BUN (6-24) mg/dL Creatinine (0.51-0.95) mg/dL Est GFR ( Amer) (>60) Est GFR (Non-Af Amer) (>60) BUN/Creatinine Ratio (8-20) Glucose (70-100) mg/dL Lactic Acid (0.5-2.0) mmol/L Calcium (8.6-10.3) mg/dL Total Bilirubin (0.2-1.0) mg/dL AST (13-39) U/L ALT (7-52) U/L Alkaline Phosphatase (34-104) U/L Troponin I (<0.04) ng/mL C-Reactive Protein (< 5.00) mg/L B-Natriuretic Peptide 661 H ( - 100) pg/mL Total Protein (6.4-8.9) g/dL Albumin (3.2-5.2) g/dL Globulin (2-4) g/dL Albumin/Globulin Ratio (1-3) Microbiology and Other Data: Microbiology 02/16/17 06:01 Gram Stain - Final Sputum 02/15/17 02:00 Legionella Urinary Antigen - Final Urine Negative Legionella Streptococcus pneumoniae Ag Screen - Final Negative S. pneumo Antigen 02/14/17 15:40 Nasal Screen MRSA (PCR)(JOSHUA) - Final Nasal Mrsa Negative Assess/Plan/Problems-Billing Assessment: Mrs. Saldana is an 86yo F with PMH of Afib on Warfarin, COPD on home O2, chronic pain, hypothyroidism, diastolic CHF, HTN, CAD, who presented to ED with c/o dyspnea and right sided chest pain, found to have sepsis secondary to pneumonia. - Patient Problems (1) Severe sepsis Comment: - Patient was septic admission, with fever, tachycardia, leukopenia. - Also had RAZA and encephalopathy. - Source is RLL pneumonia. - Required neosynephrine <24h, but it was discontinued as she received more fluids. (2) E. coli pneumonia Comment: - CxR showed RLL consolidation. - Legionella and pneumococcal Ag are negative. - Blood cultures show no growth so far and sputum grew pansensitive E. coli. - Continue Ceftriaxone #7 - ID input appreciated. (3) Acute respiratory failure with hypoxia Comment: - Secondary to pneumonia and CHF exacerbation. - Down to 4 liters NC. (4) Diastolic CHF Comment: - Some of her residual dyspnea could be associated with CHF. - Will give Lasix 20mg IV and monitor. (5) Acute renal failure Comment: - On CKD stage 3. - Resolved. (6) Chest pain Comment: - Right sided, pleuritic, secondary to pneumonia. - Troponin was negative. (7) Hypothyroidism Comment: - TSH 3.73. - Continue current dose of synthroid. (8) Atrial fibrillation Comment: - Rate is better controlled. - Continue metoprolol XL and Diltiazem. - INR is therapeutic - continue Warfarin and monitor INR. (9) DVT prophylaxis Comment: - Therapeutic INR on Warfarin. Status and Disposition: Inpatient.
[2017-02-20] MEDS: Warfarin TAB(*) 2 MG PO SCH (17:47)
[2017-02-20] MEDS: Lidocaine PATCH 5%* 1 PATCH TRANSDERM SCH (20:59)
--- NOTE | 2017-02-20 22:16 | RAD ---
INDICATION: Shortness of breath. COMPARISON: Most recent comparison chest x-rays dated February 14, 2017. TECHNIQUE: Single AP portable view of the chest was obtained. FINDINGS: Image quality is compromised due to the relative inferiority of a portable chest x-ray. There is density of securing the right lung base with less severe patchy density at the right upper lung. There is faint patchy density overlying the medial aspect of the left upper lung but overall the left lung is adequately aerated. There is a small degree of left costophrenic angle blunting, likely a small pleural effusion. There is persistent cardiomegaly. IMPRESSION: Overall the degree of aeration is similar to the February 14, 2017 chest x-ray. Density obscuring the right lung base could be pleural effusion and/or consolidation. Signs of pulmonary edema and vascular congestion are seen elsewhere in the lungs.
[2017-02-21] MEDS: Oxymorphone ER (NF) 5 MG TAB PO SCH ×2 (02:17→12:18)
[2017-02-21] MEDS: Morphine INJ* 2 MG/ML 1 ML SYRINGE IV PRN ×3 (04:22→19:21)
[2017-02-21 06:40] LABS: BUN/Creatinine Ratio 28.7 (8-20); Calcium 8.3 mg/dL (8.6-10.3); EGFR African American 66.8 (>60); Potassium 4.4 mmol/L (3.5-5.0)
[2017-02-21] MEDS: Levothyroxine TAB* 25 MCG TAB PO SCH (06:52)
[2017-02-21] MEDS: Mometasone/Formoter 200/5 MDI INH SCH ×2 (09:01→20:10)
[2017-02-21] MEDS: Levalbuterol HFA INHALER* 1 PUFF MDI INH PRN ×2 (09:03→20:07)
[2017-02-21] MEDS: Tiotropium CAP.INH* CAP.INH/18 MCG INH SCH (09:06)
[2017-02-21] MEDS: Diltiazem CD CAP* 120 MG PO SCH (09:26)
[2017-02-21] MEDS: Pregabalin CAP(*) 25 MG PO SCH ×4 (09:26→21:21)
[2017-02-21] MEDS: Potassium Chlor TAB* 20 MEQ TAB.ER PO SCH ×2 (09:26→21:24)
[2017-02-21] MEDS: Omeprazole CAP* 20 MG PO SCH (09:26)
[2017-02-21] MEDS: Docusate CAP* 100 MG PO SCH (09:26)
[2017-02-21] MEDS: Aspirin EC Low Dose* 81 MG TAB.EC PO SCH (09:26)
[2017-02-21] MEDS: Metoprolol Succinate XL TAB* 25 MG PO SCH (09:26)
[2017-02-21] MEDS: Polyethylene Glycol 3350* 17 GM PACKET PO SCH (09:27)
[2017-02-21] MEDS: predniSONE TAB* 20 MG PO SCH (09:27)
[2017-02-21] MEDS: Furosemide TAB* 40 MG PO SCH (09:27)
[2017-02-21] MEDS: cefTRIAXone VIAL(*) 1,000 MG in NS 0.9% 50 ML* 50 ML IVPB SCH (09:27)
[2017-02-21] MEDS: Lidocaine Patch REMOVE* 1 NOTE MISC PATCH OFF SCH (10:00)
--- NOTE | 2017-02-21 14:27 | PN ---
Subjective Date of Service: 02/21/17 Interval History: pt feels "slightly better" with breathing. C/o leg edema Family History: Unchanged from Admission Social History: Unchanged from Admission Past Medical History: Unchanged from Admission Objective Active Medications: Acetaminophen (Tylenol Tab*) 650 mg PO Q6H PRN PRN Reason: pain/fever Last Admin: 02/20/17 17:47 Dose: 650 mg Albuterol (Ventolin 2.5 Mg/3 Ml Neb.Stacie*) 2.5 mg INH Q4H PRN PRN Reason: SOB/WHEEZING Last Admin: 02/20/17 21:25 Dose: 2.5 mg Aspirin (Aspirin Ec Low Dose*) 81 mg PO QAM [facility] Last Admin: 02/21/17 09:26 Dose: 81 mg Diltiazem HCl (Cardizem Cd Cap*) 120 mg PO DAILY [facility] Last Admin: 02/21/17 09:26 Dose: 120 mg Docusate Sodium (Colace Cap*) 200 mg PO QAM [facility] Last Admin: 02/21/17 09:26 Dose: 200 mg Furosemide (Lasix Tab*) 40 mg PO QAM [facility] Last Admin: 02/21/17 09:27 Dose: 40 mg Ceftriaxone Sodium 1,000 mg/ (Sodium Chloride) 50 mls @ 200 mls/hr IVPB Q24H [facility] Last Admin: 02/21/17 09:27 Dose: 200 mls/hr Levalbuterol HCl (Xopenex Hfa Inhaler*) 2 puff INH QID PRN PRN Reason: SOB/WHEEZING Last Admin: 02/21/17 09:03 Dose: 2 puff Levothyroxine Sodium (Synthroid Tab*) 25 mcg PO QAM@0600 [facility] Last Admin: 02/21/17 06:52 Dose: 25 mcg Lidocaine (Lidoderm 5% Patch*) 1 patch TRANSDERM BEDTIME [facility] Last Admin: 02/20/17 20:59 Dose: 1 patch Lorazepam (Ativan Tab(*)) 0.5 mg PO BID PRN PRN Reason: ANXIETY Last Admin: 02/20/17 17:49 Dose: 0.5 mg Metoprolol Succinate (Toprol Xl Tab*) 25 mg PO QAM [facility] Last Admin: 02/21/17 09:26 Dose: 25 mg Mometasone Furoate/Formoterol Fumar (Dulera 200/5 Mdi*) 2 puff INH BID [facility] PRN Reason: Protocol Last Admin: 02/21/17 09:01 Dose: 2 puff Morphine Sulfate (Morphine Inj (Syringe)*) 1 mg IV Q4H PRN PRN Reason: Air hunger Last Admin: 02/21/17 09:27 Dose: 1 mg Nitroglycerin (Nitroglycerin Tab 0.4 Mg*) 0.4 mg SL Q5M PRN PRN Reason: PAIN - CHEST Omeprazole (Prilosec Cap*) 20 mg PO DAILY@0730 [facility] Last Admin: 02/21/17 09:26 Dose: 20 mg Oxycodone HCl (Roxycodone Tab*) 15 mg PO Q4H PRN PRN Reason: PAIN Last Admin: 02/20/17 23:23 Dose: 15 mg Oxymorphone HCl (Opana Er (Nf)) 15 mg PO Q12H [facility] Last Admin: 02/21/17 12:18 Dose: 15 mg Pharmacy Profile Note (Coumadin Daily Reminder*) 0 note FOLLOW UP 1700 [facility] Last Admin: 02/20/17 17:59 Dose: 1 note Pharmacy Profile Note (Lidocaine Patch Remove*) 1 note PATCH OFF 0900 [facility] Last Admin: 02/21/17 10:00 Dose: 1 note Polyethylene Glycol/Electrolytes (Miralax*) 17 gm PO DAILY [facility] Last Admin: 02/21/17 09:27 Dose: 17 gm Polyvinyl Alcohol (Polyvinyl Alcohol 1.4% Opth*) 1 drop BOTH EYES Q2H PRN PRN Reason: DRY EYE Last Admin: 02/18/17 22:00 Dose: 1 drop Potassium Chloride (Klor Con Er Tab*) 40 meq PO BID [facility] Last Admin: 02/21/17 09:26 Dose: 40 meq Prednisone (Deltasone Tab*) 40 mg PO DAILY [facility] Last Admin: 02/21/17 09:27 Dose: 40 mg Pregabalin (Lyrica Cap(*)) 25 mg PO QID [facility] Last Admin: 02/21/17 12:18 Dose: 25 mg Simethicone (Mylicon*) 160 mg PO PCHS PRN PRN Reason: INDIGESTION Last Admin: 02/19/17 10:47 Dose: 160 mg Tiotropium [place] (Spiriva Cap.Inh*) 1 cap INH QAM [facility] Last Admin: 02/21/17 09:06 Dose: 1 cap Warfarin Sodium (Coumadin Tab(*)) 2 mg PO DAILY@1700 [facility] PRN Reason: Protocol Last Admin: 02/20/17 17:47 Dose: 2 mg Vital Signs 02/20/17 02/20/17 02/20/17 15:32 15:33 15:34 Temperature 99.4 F Pulse Rate 66 Respiratory 20 16 20 Rate Blood Pressure 106/49 (mmHg) O2 Sat by Pulse 93 Oximetry 02/20/17 02/20/17 02/20/17 16:35 17:48 17:49 Temperature Pulse Rate Respiratory 20 20 Rate Blood Pressure (mmHg) O2 Sat by Pulse 89 Oximetry 02/20/17 02/20/17 02/20/17 19:48 19:49 20:00 Temperature Pulse Rate 72 Respiratory 20 19 16 Rate Blood Pressure (mmHg) O2 Sat by Pulse 86 Oximetry 02/20/17 02/20/17 02/20/17 20:09 20:58 23:23 Temperature 100.1 F Pulse Rate 78 Respiratory 16 20 15 Rate Blood Pressure 106/35 (mmHg) O2 Sat by Pulse 90 Oximetry 02/20/17 02/20/17 02/21/17 23:40 23:52 00:00 Temperature 98.8 F Pulse Rate 133 Respiratory 19 16 Rate Blood Pressure 106/46 (mmHg) O2 Sat by Pulse 90 86 Oximetry 02/21/17 02/21/17 02/21/17 01:23 02:17 03:58 Temperature 98.5 F Pulse Rate 82 Respiratory 18 16 16 Rate Blood Pressure 103/45 (mmHg) O2 Sat by Pulse 92 Oximetry 02/21/17 02/21/17 02/21/17 04:17 04:22 05:22 Temperature Pulse Rate Respiratory 14 18 14 Rate Blood Pressure (mmHg) O2 Sat by Pulse Oximetry 02/21/17 02/21/17 02/21/17 07:33 09:08 09:10 Temperature 98.6 F Pulse Rate 111 110 102 Respiratory 22 20 20 Rate Blood Pressure 138/62 (mmHg) O2 Sat by Pulse 94 95 95 Oximetry 02/21/17 02/21/17 02/21/17 09:26 09:27 09:39 Temperature Pulse Rate Respiratory 25 25 25 Rate Blood Pressure (mmHg) O2 Sat by Pulse Oximetry 02/21/17 02/21/17 02/21/17 10:27 11:25 12:18 Temperature 98.8 F Pulse Rate 77 Respiratory 20 20 18 Rate Blood Pressure 98/40 (mmHg) O2 Sat by Pulse 98 Oximetry Oxygen Devices in Use Now: Nasal Cannula - at 10 L-getting neb tx right now Appearance: 86 yo F in nAD, aAOx3 Eyes: No Scleral Icterus, PERRLA Ears/Nose/Mouth/Throat: NL Teeth, Lips, Gums, Mucous Membranes Moist Neck: NL Appearance and Movements; NL JVP, Trachea Midline Respiratory: Symmetrical Chest Expansion and Respiratory Effort, - - rhonchi at RLL Cardiovascular: NL Sounds; No Murmurs; No JVD, - - irregular Abdominal: NL Sounds; No Tenderness; No Distention, No Hepatosplenomegaly Lymphatic: No Cervical Adenopathy Extremities: No Clubbing, Cyanosis, - - +2 pitting pedal edema b/l Skin: No Rash or Ulcers, No Nodules or Sclerosis Neurological: Alert and Oriented x 3, NL Muscle Strength and Tone Result Diagrams: 02/20/17 05:12 02/21/17 05:16 Additional Lab and Data: Lab Results 02/14/17 02/14/17 02/14/17 Range/Units 09:05 09:05 09:05 WBC 3.1 L (3.5-10.8) 10^3/ul RBC 4.26 (4.0-5.4) 10^6/ul Hgb 12.6 (12.0-16.0) g/dl Hct 39 (35-47) % MCV 92 (80-97) fL MCH 30 (27-31) pg MCHC 32 (31-36) g/dl RDW 17 H (10.5-15) % Plt Count 120 L (150-450) 10^3/ul MPV 9 (7.4-10.4) um3 Immature Gran % (Auto) 34 H (0-9) % Neut % (Auto) 87.9 H (38-83) % Lymph % (Auto) 7.6 L (25-47) % [place] % (Auto) 4.1 (1-9) % Eos % (Auto) 0 (0-6) % Baso % (Auto) 0.4 (0-2) % Absolute Neuts (auto) 2.7 (1.5-7.7) 10^3/ul Absolute Lymphs (auto) 0.2 L (1.0-4.8) 10^3/ul Absolute Monos (auto) 0.1 (0-0.8) 10^3/ul Absolute Eos (auto) 0 (0-0.6) 10^3/ul Absolute Basos (auto) 0 (0-0.2) 10^3/ul Absolute Nucleated RBC 0 10^3/ul Neutrophils % 48 (38-83) % Band Neutrophils % 31 H (0-8) % Lymphocytes % 10 L (25-47) % Monocytes % 8 (0-13) % Metamyelocytes % 3 H (0-2) % Nucleated RBC % 0.1 Normal RBC Morphology Not Reportable Elliptocytes 1+ INR (Anticoag Therapy) (0.89-1.11) APTT (26.0-36.3) seconds Patient Temperature ABG pH (7.35-7.45) ABG pCO2 (35-45) mmHg ABG pO2 (80-100) mmHg ABG HCO3 (19-31) mmol/L ABG O2 Saturation (95-98) % ABG Base Excess (-2.0-2.0) Respiration Rate O2 Delivery Device Ventilator Type Vent Mode FiO2 Inspiratory Time PEEP Pressure Support Pressure Control EPAP IPAP BiPAP Sodium 141 (133-145) mmol/L Potassium 3.7 (3.5-5.0) mmol/L Chloride 103 (101-111) mmol/L Carbon Dioxide 31 (22-32) mmol/L Anion Gap 7 (2-11) mmol/L BUN 43 H (6-24) mg/dL Creatinine 1.58 H (0.51-0.95) mg/dL Est GFR ( Amer) 39.9 (>60) Est GFR (Non-Af Amer) 31.0 (>60) BUN/Creatinine Ratio 27.2 H (8-20) Glucose 151 H (70-100) mg/dL Lactic Acid 1.8 (0.5-2.0) mmol/L Calcium 8.7 (8.6-10.3) mg/dL Total Bilirubin 1.00 (0.2-1.0) mg/dL AST 18 (13-39) U/L ALT 17 (7-52) U/L Alkaline Phosphatase 85 (34-104) U/L Troponin I 0.02 (<0.04) ng/mL C-Reactive Protein 24.79 H (< 5.00) mg/L B-Natriuretic Peptide ( - 100) pg/mL Total Protein 6.6 (6.4-8.9) g/dL Albumin 3.3 (3.2-5.2) g/dL Globulin 3.3 (2-4) g/dL Albumin/Globulin Ratio 1.0 (1-3) 02/14/17 02/14/17 02/14/17 Range/Units 09:05 09:05 09:15 WBC (3.5-10.8) 10^3/ul RBC (4.0-5.4) 10^6/ul Hgb (12.0-16.0) g/dl Hct (35-47) % MCV (80-97) fL MCH (27-31) pg MCHC (31-36) g/dl RDW (10.5-15) % Plt Count (150-450) 10^3/ul MPV (7.4-10.4) um3 Immature Gran % (Auto) (0-9) % Neut % (Auto) (38-83) % Lymph % (Auto) (25-47) % [place] % (Auto) (1-9) % Eos % (Auto) (0-6) % Baso % (Auto) (0-2) % Absolute Neuts (auto) (1.5-7.7) 10^3/ul Absolute Lymphs (auto) (1.0-4.8) 10^3/ul Absolute Monos (auto) (0-0.8) 10^3/ul Absolute Eos (auto) (0-0.6) 10^3/ul Absolute Basos (auto) (0-0.2) 10^3/ul Absolute Nucleated RBC 10^3/ul Neutrophils % (38-83) % Band Neutrophils % (0-8) % Lymphocytes % (25-47) % Monocytes % (0-13) % Metamyelocytes % (0-2) % Nucleated RBC % Normal RBC Morphology Elliptocytes INR (Anticoag Therapy) 2.83 H (0.89-1.11) APTT 40.0 H (26.0-36.3) seconds Patient Temperature Not Reportable ABG pH 7.41 (7.35-7.45) ABG pCO2 50 H (35-45) mmHg ABG pO2 62 L (80-100) mmHg ABG HCO3 29.4 (19-31) mmol/L ABG O2 Saturation 93.5 L (95-98) % ABG Base Excess 5.9 H (-2.0-2.0) Respiration Rate Not Reportable O2 Delivery Device Oxymask Ventilator Type Not Reportable Vent Mode Not Reportable FiO2 Not Reportable Inspiratory Time Not Reportable PEEP Not Reportable Pressure Support Not Reportable Pressure Control Not Reportable EPAP Not Reportable IPAP Not Reportable BiPAP Not Reportable Sodium (133-145) mmol/L Potassium (3.5-5.0) mmol/L Chloride (101-111) mmol/L Carbon Dioxide (22-32) mmol/L Anion Gap (2-11) mmol/L BUN (6-24) mg/dL Creatinine (0.51-0.95) mg/dL Est GFR ( Amer) (>60) Est GFR (Non-Af Amer) (>60) BUN/Creatinine Ratio (8-20) Glucose (70-100) mg/dL Lactic Acid (0.5-2.0) mmol/L Calcium (8.6-10.3) mg/dL Total Bilirubin (0.2-1.0) mg/dL AST (13-39) U/L ALT (7-52) U/L Alkaline Phosphatase (34-104) U/L Troponin I (<0.04) ng/mL C-Reactive Protein (< 5.00) mg/L B-Natriuretic Peptide 661 H ( - 100) pg/mL Total Protein (6.4-8.9) g/dL Albumin (3.2-5.2) g/dL Globulin (2-4) g/dL Albumin/Globulin Ratio (1-3) Microbiology and Other Data: Microbiology 02/16/17 06:01 Gram Stain - Final Sputum 02/15/17 02:00 Legionella Urinary Antigen - Final Urine Negative Legionella Streptococcus pneumoniae Ag Screen - Final Negative S. pneumo Antigen 02/14/17 15:40 Nasal Screen MRSA (PCR)(JOSHUA) - Final Nasal Mrsa Negative Assess/Plan/Problems-Billing Assessment: Mrs. Saldana is an 86yo F with PMH of Afib on Warfarin, COPD on home O2, chronic pain, hypothyroidism, diastolic CHF, HTN, CAD, who presented to ED with c/o dyspnea and right sided chest pain, found to have sepsis secondary to pneumonia. - Patient Problems (1) Severe sepsis Comment: - Patient was septic admission, with fever, tachycardia, leukopenia. - Also had RAZA and encephalopathy. - Source is RLL pneumonia. - Required neosynephrine <24h, but it was discontinued as she received more fluids. (2) E. coli pneumonia Comment: - CxR showed RLL consolidation. - Legionella and pneumococcal Ag are negative. - Blood cultures show no growth so far and sputum grew pansensitive E. coli. - Continue Ceftriaxone #8 - ID input appreciated. (3) Acute respiratory failure with hypoxia Comment: - Secondary to pneumonia and CHF exacerbation. - slowly improving (4) Diastolic CHF Comment: - Some of her residual dyspnea could be associated with CHF. - unfortunately with IV Lasix tx pt's SBP dropped adn creat increased -will cont scheduled PO Lasix (5) Acute renal failure Comment: - On CKD stage 3. - Resolved. (6) Chest pain Comment: - Right sided, pleuritic, secondary to pneumonia. - Troponin was negative. (7) Hypothyroidism Comment: - TSH 3.73. - Continue current dose of synthroid. (8) Atrial fibrillation Comment: - Rate is better controlled. - Continue metoprolol XL and Diltiazem. - INR is therapeutic - continue Warfarin and monitor INR. (9) DVT prophylaxis Comment: - Therapeutic INR on Warfarin. (10) COPD (chronic obstructive pulmonary disease) Comment: In acute exacerbation. Continue home bronchodilators and oxygen. start Prednisone today Status and Disposition: Inpatient.
[2017-02-21] MEDS: Warfarin TAB(*) 2 MG PO SCH (16:25)
[2017-02-21] MEDS: Lidocaine PATCH 5%* 1 PATCH TRANSDERM SCH (21:23)
[2017-02-22] MEDS: Oxymorphone ER (NF) 5 MG TAB PO SCH ×2 (00:10→11:00)
[2017-02-22] MEDS: Morphine INJ* 2 MG/ML 1 ML SYRINGE IV PRN (04:13)
[2017-02-22] MEDS: Levothyroxine TAB* 25 MCG TAB PO SCH (05:39)
[2017-02-22] MEDS: Omeprazole CAP* 20 MG PO SCH (07:48)
[2017-02-22] MEDS: Pregabalin CAP(*) 25 MG PO SCH ×4 (07:49→20:43)
[2017-02-22] MEDS: Docusate CAP* 100 MG PO SCH (07:49)
[2017-02-22] MEDS: Potassium Chlor TAB* 20 MEQ TAB.ER PO SCH ×2 (07:50→20:43)
[2017-02-22] MEDS: Aspirin EC Low Dose* 81 MG TAB.EC PO SCH (07:50)
[2017-02-22] MEDS: Metoprolol Succinate XL TAB* 25 MG PO SCH (07:50)
[2017-02-22] MEDS: predniSONE TAB* 20 MG PO SCH (07:50)
[2017-02-22] MEDS: Furosemide TAB* 40 MG PO SCH (07:50)
[2017-02-22] MEDS: Polyethylene Glycol 3350* 17 GM PACKET PO SCH (07:51)
[2017-02-22] MEDS: Diltiazem CD CAP* 120 MG PO SCH (07:51)
[2017-02-22] MEDS: Lidocaine Patch REMOVE* 1 NOTE MISC PATCH OFF SCH (07:51)
[2017-02-22] MEDS: Tiotropium CAP.INH* CAP.INH/18 MCG INH SCH (08:08)
[2017-02-22] MEDS: Mometasone/Formoter 200/5 MDI INH SCH ×2 (08:08→19:21)
[2017-02-22] MEDS: Levalbuterol HFA INHALER* 1 PUFF MDI INH PRN (08:08)
[2017-02-22] MEDS: oxyCODONE TAB* 5 MG TAB PO PRN ×3 (08:08→20:42)
[2017-02-22] MEDS ORDERED: Furosemide IV* 10 MG/ML 2 ML VIAL (20 MG) IV ONE (09:12)
[2017-02-22] MEDS: cefTRIAXone VIAL(*) 1,000 MG in NS 0.9% 50 ML* 50 ML IVPB SCH (09:40)
[2017-02-22] MEDS: Albuterol 2.5 MG/3 ML NEB.SOL* (0.083%) INH SCH ×3 (10:39→19:21)
--- NOTE | 2017-02-22 14:15 | PN ---
Subjective Date of Service: 02/22/17 Interval History: Pt still c/o SOB despite 02 sat at 97% on 4 L 02. Family History: Unchanged from Admission Social History: Unchanged from Admission Past Medical History: Unchanged from Admission Objective Active Medications: Acetaminophen (Tylenol Tab*) 650 mg PO Q6H PRN PRN Reason: pain/fever Last Admin: 02/20/17 17:47 Dose: 650 mg Albuterol (Ventolin 2.5 Mg/3 Ml Neb.Stacie*) 2.5 mg INH [id number] AWAKE [facility] Last Admin: 02/22/17 13:47 Dose: 2.5 mg Aspirin (Aspirin Ec Low Dose*) 81 mg PO QAM [facility] Last Admin: 02/22/17 07:50 Dose: 81 mg Diltiazem HCl (Cardizem Cd Cap*) 120 mg PO DAILY [facility] Last Admin: 02/22/17 07:51 Dose: 120 mg Docusate Sodium (Colace Cap*) 200 mg PO QAM [facility] Last Admin: 02/22/17 07:49 Dose: 200 mg Furosemide (Lasix Tab*) 40 mg PO QAM [facility] Last Admin: 02/22/17 07:50 Dose: 40 mg Ceftriaxone Sodium 1,000 mg/ (Sodium Chloride) 50 mls @ 200 mls/hr IVPB Q24H [facility] Last Admin: 02/22/17 09:40 Dose: 200 mls/hr Levalbuterol HCl (Xopenex Hfa Inhaler*) 2 puff INH QID PRN PRN Reason: SOB/WHEEZING Last Admin: 02/22/17 08:08 Dose: 2 puff Levothyroxine Sodium (Synthroid Tab*) 25 mcg PO QAM@0600 [facility] Last Admin: 02/22/17 05:39 Dose: 25 mcg Lidocaine (Lidoderm 5% Patch*) 1 patch TRANSDERM BEDTIME [facility] Last Admin: 02/21/17 21:23 Dose: 1 patch Lorazepam (Ativan Tab(*)) 0.5 mg PO BID PRN PRN Reason: ANXIETY Last Admin: 02/20/17 17:49 Dose: 0.5 mg Metoprolol Succinate (Toprol Xl Tab*) 25 mg PO QAM [facility] Last Admin: 02/22/17 07:50 Dose: 25 mg Mometasone Furoate/Formoterol Fumar (Dulera 200/5 Mdi*) 2 puff INH BID [facility] PRN Reason: Protocol Last Admin: 02/22/17 08:08 Dose: 2 puff Morphine Sulfate (Morphine Inj (Syringe)*) 1 mg IV Q4H PRN PRN Reason: Air hunger Last Admin: 02/22/17 04:13 Dose: 1 mg Nitroglycerin (Nitroglycerin Tab 0.4 Mg*) 0.4 mg SL Q5M PRN PRN Reason: PAIN - CHEST Omeprazole (Prilosec Cap*) 20 mg PO DAILY@0730 [facility] Last Admin: 02/22/17 07:48 Dose: 20 mg Oxycodone HCl (Roxycodone Tab*) 15 mg PO Q4H PRN PRN Reason: PAIN Last Admin: 02/22/17 08:08 Dose: 15 mg Oxymorphone HCl (Opana Er (Nf)) 15 mg PO Q12H [facility] Last Admin: 02/22/17 11:00 Dose: 15 mg Pharmacy Profile Note (Coumadin Daily Reminder*) 0 note FOLLOW UP 1700 [facility] Last Admin: 02/21/17 16:25 Dose: 1 note Pharmacy Profile Note (Lidocaine Patch Remove*) 1 note PATCH OFF 0900 [facility] Last Admin: 02/22/17 07:51 Dose: 1 note Polyethylene Glycol/Electrolytes (Miralax*) 17 gm PO DAILY [facility] Last Admin: 02/22/17 07:51 Dose: 17 gm Polyvinyl Alcohol (Polyvinyl Alcohol 1.4% Opth*) 1 drop BOTH EYES Q2H PRN PRN Reason: DRY EYE Last Admin: 02/18/17 22:00 Dose: 1 drop Potassium Chloride (Klor Con Er Tab*) 40 meq PO BID [facility] Last Admin: 02/22/17 07:50 Dose: 40 meq Prednisone (Deltasone Tab*) 40 mg PO DAILY [facility] Last Admin: 02/22/17 07:50 Dose: 40 mg Pregabalin (Lyrica Cap(*)) 25 mg PO QID [facility] Last Admin: 02/22/17 12:17 Dose: 25 mg Simethicone (Mylicon*) 160 mg PO PCHS PRN PRN Reason: INDIGESTION Last Admin: 02/19/17 10:47 Dose: 160 mg Tiotropium [place] (Spiriva Cap.Inh*) 1 cap INH QAM [facility] Last Admin: 02/22/17 08:08 Dose: 1 cap Warfarin Sodium (Coumadin Tab(*)) 4 mg PO DAILY@1700 [facility] PRN Reason: Protocol Vital Signs 02/21/17 02/21/17 02/21/17 14:45 16:25 17:08 Temperature 97.9 F Pulse Rate 65 Respiratory 20 20 20 Rate Blood Pressure 108/63 (mmHg) O2 Sat by Pulse 97 Oximetry 02/21/17 02/21/17 02/21/17 18:18 19:21 20:00 Temperature Pulse Rate 67 Respiratory 20 21 18 Rate Blood Pressure (mmHg) O2 Sat by Pulse 96 Oximetry 02/21/17 02/21/17 02/21/17 20:02 20:21 21:21 Temperature 97.5 F Pulse Rate 63 Respiratory 18 18 18 Rate Blood Pressure 103/43 (mmHg) O2 Sat by Pulse 95 Oximetry 02/21/17 02/22/17 02/22/17 23:21 00:00 00:02 Temperature 97.6 F Pulse Rate 75 Respiratory 15 18 Rate Blood Pressure 99/45 (mmHg) O2 Sat by Pulse 96 99 Oximetry 02/22/17 02/22/17 02/22/17 00:10 02:10 03:32 Temperature 97.8 F Pulse Rate 74 Respiratory 15 15 18 Rate Blood Pressure 110/49 (mmHg) O2 Sat by Pulse 98 Oximetry 02/22/17 02/22/17 02/22/17 04:13 05:13 06:44 Temperature Pulse Rate Respiratory 16 17 22 Rate Blood Pressure (mmHg) O2 Sat by Pulse Oximetry 02/22/17 02/22/17 02/22/17 07:12 07:49 08:08 Temperature 97.6 F Pulse Rate 66 Respiratory 20 22 20 Rate Blood Pressure 109/56 (mmHg) O2 Sat by Pulse 99 Oximetry 02/22/17 02/22/17 02/22/17 08:17 09:49 10:08 Temperature Pulse Rate 76 Respiratory 16 20 20 Rate Blood Pressure (mmHg) O2 Sat by Pulse 96 Oximetry 02/22/17 02/22/17 02/22/17 11:00 11:20 12:17 Temperature 98.0 F Pulse Rate 64 Respiratory 20 18 18 Rate Blood Pressure 92/41 (mmHg) O2 Sat by Pulse 94 Oximetry 02/22/17 02/22/17 13:00 13:51 Temperature Pulse Rate 72 Respiratory 20 16 Rate Blood Pressure (mmHg) O2 Sat by Pulse 95 Oximetry Oxygen Devices in Use Now: Nasal Cannula - 97% on 4L Appearance: 86 yo f in nAD, aAOx3 Eyes: No Scleral Icterus, PERRLA Ears/Nose/Mouth/Throat: NL Teeth, Lips, Gums, Mucous Membranes Moist Neck: NL Appearance and Movements; NL JVP, Trachea Midline Respiratory: Symmetrical Chest Expansion and Respiratory Effort, - - distant breath sounds b/l Cardiovascular: NL Sounds; No Murmurs; No JVD, - - irregular Abdominal: NL Sounds; No Tenderness; No Distention, No Hepatosplenomegaly Lymphatic: No Cervical Adenopathy Extremities: No Clubbing, Cyanosis, - - +2 pitting pedal edema b/l Skin: No Rash or Ulcers, No Nodules or Sclerosis Neurological: Alert and Oriented x 3, NL Muscle Strength and Tone Result Diagrams: 02/20/17 05:12 02/21/17 05:16 Additional Lab and Data: Lab Results 02/14/17 02/14/17 02/14/17 Range/Units 09:05 09:05 09:05 WBC 3.1 L (3.5-10.8) 10^3/ul RBC 4.26 (4.0-5.4) 10^6/ul Hgb 12.6 (12.0-16.0) g/dl Hct 39 (35-47) % MCV 92 (80-97) fL MCH 30 (27-31) pg MCHC 32 (31-36) g/dl RDW 17 H (10.5-15) % Plt Count 120 L (150-450) 10^3/ul MPV 9 (7.4-10.4) um3 Immature Gran % (Auto) 34 H (0-9) % Neut % (Auto) 87.9 H (38-83) % Lymph % (Auto) 7.6 L (25-47) % [place] % (Auto) 4.1 (1-9) % Eos % (Auto) 0 (0-6) % Baso % (Auto) 0.4 (0-2) % Absolute Neuts (auto) 2.7 (1.5-7.7) 10^3/ul Absolute Lymphs (auto) 0.2 L (1.0-4.8) 10^3/ul Absolute Monos (auto) 0.1 (0-0.8) 10^3/ul Absolute Eos (auto) 0 (0-0.6) 10^3/ul Absolute Basos (auto) 0 (0-0.2) 10^3/ul Absolute Nucleated RBC 0 10^3/ul Neutrophils % 48 (38-83) % Band Neutrophils % 31 H (0-8) % Lymphocytes % 10 L (25-47) % Monocytes % 8 (0-13) % Metamyelocytes % 3 H (0-2) % Nucleated RBC % 0.1 Normal RBC Morphology Not Reportable Elliptocytes 1+ INR (Anticoag Therapy) (0.89-1.11) APTT (26.0-36.3) seconds Patient Temperature ABG pH (7.35-7.45) ABG pCO2 (35-45) mmHg ABG pO2 (80-100) mmHg ABG HCO3 (19-31) mmol/L ABG O2 Saturation (95-98) % ABG Base Excess (-2.0-2.0) Respiration Rate O2 Delivery Device Ventilator Type Vent Mode FiO2 Inspiratory Time PEEP Pressure Support Pressure Control EPAP IPAP BiPAP Sodium 141 (133-145) mmol/L Potassium 3.7 (3.5-5.0) mmol/L Chloride 103 (101-111) mmol/L Carbon Dioxide 31 (22-32) mmol/L Anion Gap 7 (2-11) mmol/L BUN 43 H (6-24) mg/dL Creatinine 1.58 H (0.51-0.95) mg/dL Est GFR ( Amer) 39.9 (>60) Est GFR (Non-Af Amer) 31.0 (>60) BUN/Creatinine Ratio 27.2 H (8-20) Glucose 151 H (70-100) mg/dL Lactic Acid 1.8 (0.5-2.0) mmol/L Calcium 8.7 (8.6-10.3) mg/dL Total Bilirubin 1.00 (0.2-1.0) mg/dL AST 18 (13-39) U/L ALT 17 (7-52) U/L Alkaline Phosphatase 85 (34-104) U/L Troponin I 0.02 (<0.04) ng/mL C-Reactive Protein 24.79 H (< 5.00) mg/L B-Natriuretic Peptide ( - 100) pg/mL Total Protein 6.6 (6.4-8.9) g/dL Albumin 3.3 (3.2-5.2) g/dL Globulin 3.3 (2-4) g/dL Albumin/Globulin Ratio 1.0 (1-3) 02/14/17 02/14/17 02/14/17 Range/Units 09:05 09:05 09:15 WBC (3.5-10.8) 10^3/ul RBC (4.0-5.4) 10^6/ul Hgb (12.0-16.0) g/dl Hct (35-47) % MCV (80-97) fL MCH (27-31) pg MCHC (31-36) g/dl RDW (10.5-15) % Plt Count (150-450) 10^3/ul MPV (7.4-10.4) um3 Immature Gran % (Auto) (0-9) % Neut % (Auto) (38-83) % Lymph % (Auto) (25-47) % [place] % (Auto) (1-9) % Eos % (Auto) (0-6) % Baso % (Auto) (0-2) % Absolute Neuts (auto) (1.5-7.7) 10^3/ul Absolute Lymphs (auto) (1.0-4.8) 10^3/ul Absolute Monos (auto) (0-0.8) 10^3/ul Absolute Eos (auto) (0-0.6) 10^3/ul Absolute Basos (auto) (0-0.2) 10^3/ul Absolute Nucleated RBC 10^3/ul Neutrophils % (38-83) % Band Neutrophils % (0-8) % Lymphocytes % (25-47) % Monocytes % (0-13) % Metamyelocytes % (0-2) % Nucleated RBC % Normal RBC Morphology Elliptocytes INR (Anticoag Therapy) 2.83 H (0.89-1.11) APTT 40.0 H (26.0-36.3) seconds Patient Temperature Not Reportable ABG pH 7.41 (7.35-7.45) ABG pCO2 50 H (35-45) mmHg ABG pO2 62 L (80-100) mmHg ABG HCO3 29.4 (19-31) mmol/L ABG O2 Saturation 93.5 L (95-98) % ABG Base Excess 5.9 H (-2.0-2.0) Respiration Rate Not Reportable O2 Delivery Device Oxymask Ventilator Type Not Reportable Vent Mode Not Reportable FiO2 Not Reportable Inspiratory Time Not Reportable PEEP Not Reportable Pressure Support Not Reportable Pressure Control Not Reportable EPAP Not Reportable IPAP Not Reportable BiPAP Not Reportable Sodium (133-145) mmol/L Potassium (3.5-5.0) mmol/L Chloride (101-111) mmol/L Carbon Dioxide (22-32) mmol/L Anion Gap (2-11) mmol/L BUN (6-24) mg/dL Creatinine (0.51-0.95) mg/dL Est GFR ( Amer) (>60) Est GFR (Non-Af Amer) (>60) BUN/Creatinine Ratio (8-20) Glucose (70-100) mg/dL Lactic Acid (0.5-2.0) mmol/L Calcium (8.6-10.3) mg/dL Total Bilirubin (0.2-1.0) mg/dL AST (13-39) U/L ALT (7-52) U/L Alkaline Phosphatase (34-104) U/L Troponin I (<0.04) ng/mL C-Reactive Protein (< 5.00) mg/L B-Natriuretic Peptide 661 H ( - 100) pg/mL Total Protein (6.4-8.9) g/dL Albumin (3.2-5.2) g/dL Globulin (2-4) g/dL Albumin/Globulin Ratio (1-3) Microbiology and Other Data: Microbiology 02/16/17 06:01 Gram Stain - Final Sputum 02/15/17 02:00 Legionella Urinary Antigen - Final Urine Negative Legionella Streptococcus pneumoniae Ag Screen - Final Negative S. pneumo Antigen 02/14/17 15:40 Nasal Screen MRSA (PCR)(JOSHUA) - Final Nasal Mrsa Negative Assess/Plan/Problems-Billing Assessment: Mrs. Saldana is an 86yo F with PMH of Afib on Warfarin, COPD on home O2, chronic pain, hypothyroidism, diastolic CHF, HTN, CAD, who presented to ED with c/o dyspnea and right sided chest pain, found to have sepsis secondary to pneumonia. - Patient Problems (1) Severe sepsis Comment: - Patient was septic admission, with fever, tachycardia, leukopenia. - Also had RAZA and encephalopathy. - Source is RLL pneumonia. - Required neosynephrine <24h, but it was discontinued as she received more fluids. (2) E. coli pneumonia Comment: - CxR showed RLL consolidation. - Legionella and pneumococcal Ag are negative. - Blood cultures show no growth so far and sputum grew pansensitive E. coli. - Continue Ceftriaxone #9 - ID input appreciated. (3) Acute respiratory failure with hypoxia Comment: - Secondary to pneumonia and CHF exacerbation. - slowly improving -requires 4 l 02, at home is on 2L. suspect she will require more 02 till gets more ambulatory at rehab (4) Diastolic CHF Comment: - Some of her residual dyspnea could be associated with CHF. - will treat with an additional dose of Lasix today -start TEDs for venous stasis edema (5) Acute renal failure Comment: - On CKD stage 3. - Resolved. (6) Chest pain Comment: - Right sided, pleuritic, secondary to pneumonia. - Troponin was negative. (7) Hypothyroidism Comment: - TSH 3.73. - Continue current dose of synthroid. (8) Atrial fibrillation Comment: - Rate is better controlled. - Continue metoprolol XL and Diltiazem. - INR is mildly subtherapeutic - continue Warfarin(dose increased form 2 to 4 mg on 02/22/17) (9) DVT prophylaxis Comment: - Warfarin. (10) COPD (chronic obstructive pulmonary disease) Comment: In acute exacerbation. Continue home bronchodilators and oxygen, Prednisone Status and Disposition: Inpatient.STR at d/c Spoke with pt's son and daughter in law present in room today re: family's concerns for not sufficient PT during inpatient stay. Explained to family that we have limited PT resources during the weekend.
[2017-02-22] MEDS ORDERED: Warfarin TAB(*) 4 MG PO SCH (17:00)
[2017-02-22] MEDS: Lidocaine PATCH 5%* 1 PATCH TRANSDERM SCH (20:47)
[2017-02-22] MEDS: Artificial Tears* 15 ML BTL BOTH EYES PRN (23:47)
[2017-02-23] MEDS: Oxymorphone ER (NF) 5 MG TAB PO SCH ×2 (01:09→11:31)
[2017-02-23] MEDS: Albuterol 2.5 MG/3 ML NEB.SOL* (0.083%) INH SCH ×3 (01:28→08:17)
[2017-02-23] MEDS: Levothyroxine TAB* 25 MCG TAB PO SCH (05:33)
[2017-02-23 06:20] LABS: BUN/Creatinine Ratio 32.5 (8-20); Calcium 8.2 mg/dL (8.6-10.3); EGFR African American 56.4 (>60); EGFR Non-African American 43.9 (>60)
[2017-02-23] MEDS: Docusate CAP* 100 MG PO SCH (07:31)
[2017-02-23] MEDS: Potassium Chlor TAB* 20 MEQ TAB.ER PO SCH (07:31)
[2017-02-23] MEDS: Diltiazem CD CAP* 120 MG PO SCH (07:32)
[2017-02-23] MEDS: Aspirin EC Low Dose* 81 MG TAB.EC PO SCH (07:32)
[2017-02-23] MEDS: Omeprazole CAP* 20 MG PO SCH (07:32)
[2017-02-23] MEDS: predniSONE TAB* 20 MG PO SCH (07:32)
[2017-02-23] MEDS: Metoprolol Succinate XL TAB* 25 MG PO SCH (07:33)
[2017-02-23] MEDS: oxyCODONE TAB* 5 MG TAB PO PRN (07:33)
[2017-02-23] MEDS: Pregabalin CAP(*) 25 MG PO SCH (07:33)
[2017-02-23] MEDS: Furosemide TAB* 40 MG PO SCH (07:33)
[2017-02-23] MEDS: Polyethylene Glycol 3350* 17 GM PACKET PO SCH (07:34)
[2017-02-23] MEDS: Lidocaine Patch REMOVE* 1 NOTE MISC PATCH OFF SCH (07:36)
[2017-02-23] MEDS: Tiotropium CAP.INH* CAP.INH/18 MCG INH SCH (08:16)
[2017-02-23] MEDS: Mometasone/Formoter 200/5 MDI INH SCH (08:17)
[2017-02-23] MEDS: cefTRIAXone VIAL(*) 1,000 MG in NS 0.9% 50 ML* 50 ML IVPB SCH (10:06)
[2017-02-23 12:05] VITALS: BP 110/40
--- NOTE | 2017-02-23 12:18 | DS ---
CC: Dr. Thompson * DISCHARGE SUMMARY: DATE OF ADMISSION: 02/14/17 DATE OF DISCHARGE: 02/23/17 PRIMARY CARE PROVIDER: Dr. Thompson. DISCHARGE DIAGNOSES: 1. Severe sepsis requiring pressors initially due to Escherichia coli pneumonia , resulting in acute hypoxemic respiratory failure. 2. Acute renal failure due to above. 3. Acute on chronic diastolic congestive heart failure exacerbation. 4. Chronic obstructive pulmonary disease exacerbation. 5. Chest pain that include during hospital stay was due to the patient's pneumonia. SECONDARY DIAGNOSES: 1. History of chronic atrial fibrillation, on Coumadin. 2. History of chronic obstructive pulmonary disease, on 3 L of oxygen at home. 3. History of chronic pain. 4. Hypothyroidism. 5. History of diastolic congestive heart failure with ejection fraction of 65% in July of 2016. 6. History of moderate to severe tricuspid regurgitation with moderate pulmonary hypertension. 7. History of thrombocytopenia. 8. Peripheral neuropathy. 9. Hypertension. 10. Coronary artery disease. 11. History of partial gastrectomy, partial thyroidectomy. 12. History of cholecystectomy. 13. Carpal tunnel repair. 14. Chronic pain. MEDICATIONS AT DISCHARGE: Include: 1. DuoNeb 1 neb every 4 hours p.r.n. wheezing. 2. Magnesium 250 mg daily. 3. Artificial tears 1 drop both eyes p.r.n. 4. Aspirin 81 mg daily. 5. Symbicort 160/4.5 one puff inhalation b.i.d. 6. Calcium 500 mg daily. 7. Vitamin D3 400 units b.i.d. 8. Cartia XT 120 mg daily. 9. Colace 100 mg daily. 10. Furosemide 40 mg daily. 11. Lorazepam 0.5 mg b.i.d. p.r.n. 12. Xopenex inhaler 2 puffs up to 4 times a day p.r.n. 13. Levothyroxine 25 mcg daily. 14. Lidoderm patch 5% apply at bedtime to affected painful area. 15. Linzess mcg daily. 16. Metoprolol succinate 25 mg daily. 17. Nitroglycerin 0.4 mg sublingually every 5 minutes for pain. 18. Opana ER 15 mg every 12 hours. 19. Protonix 40 mg daily. 20. MiraLAX 17 g daily. 21. Lyrica 25 mg 4 times a day. 22. Actonel 35 mg p.o. every Thursday. 23. Gas-X 80 mg on a p.r.n. basis. 24. Aldactone 25 mg daily. 25. Spiriva 1 capsule daily. 26. Coumadin 4 mg daily. Next INR to be checked on 02/25/17. 27. Oxycodone 15 mg every 4 hours p.r.n. 28. Prednisone 40 mg daily for 2 days, then 20 mg daily for 4 days, then 10 mg daily for 4 days, then 5 mg daily for 4 days, then stop. Weight at discharge is 157 pounds. The patient is to have her weight checked daily and to notify physician if her weight increases over 3 pounds. Oxygen continuously at 3 to 6 L, to titrate to oxygen saturation of above 90%. Please note that the patient is known to be anxious and complained of dyspnea even when her oxygen saturation is 98%. LABORATORY VALUES AND STUDIES PERFORMED DURING THE HOSPITAL STAY: On 02/23/17, sodium was 136, potassium 5.0, chloride 100, carbon dioxide 30, BUN 38, and creatinine 1.17. On 02/20/17, white blood cell count 7.5, hemoglobin 9.5, hematocrit 30, and platelets of 95, which is chronic and consistent with prior. The patient's INR on the day of discharge was 1.78. The patient's Coumadin was increased from 2 to 4 mg on 02/22/17. Next INR to be checked on 02/25/17. Most recent portable chest x-ray obtained on 02/20/17. Impression: "Overall, the degree of evaluation is similar to the 02/14/17 x-ray. The density obscuring the right lung base could be pleural effusion and/or consolidation. Signs of pulmonary edema and vascular congestion are seen elsewhere in the lungs. Microbiology studies were positive for E. coli sputum cultures. Blood cultures were negative. There were negative legionella and strep pneumo antigens in the urine. CONSULTATION DURING THE HOSPITAL STAY: Included Dr. Camacho from Infectious Disease. HOSPITALIZATION COURSE: Kimberly Saldana is an 86-year-old female known to us from prior multiple hospitalizations with history of COPD, oxygen dependent, who lives with limited ambulatory ability at home and presented to the hospital complaining of right-sided chest pain. The patient was noted to be in severe sepsis due to pneumonia and required a brief treatment with Myles-Synephrine for hypotension in the intensive care unit. She suffered from acute hypoxemic respiratory failure on top of chronic oxygen-dependent COPD and needed to be treated with Vapotherm in the ICU. Gradually, her symptoms improved. She needed to be placed on prednisone due to COPD exacerbation during her hospital stay and is advised to continue taper as above mentioned at discharge. Dr. Camacho from Infectious Disease saw the patient in consultation and recommended continuation of treatment with ceftriaxone. She received a total of 10 days of ceftriaxone treatment, which was discontinued prior to her discharge. She also suffered from acute exacerbation of her diastolic CHF and was treated with several doses of IV Lasix during the hospital stay. She still continues to have significant bilateral lower extremity edema, which is most likely related to venous stasis. Due to that, further diuresis with Lasix increased her creatinine, but did not improve her edema. ANAYA stockings are recommended to be used on a daily basis for bilateral lower extremities. She complained of chest pain, which was related to her pneumonia. Her troponins continued to be negative throughout her hospital stay and she continued to be on a telemetry bed with her known atrial fibrillation. Her INR fluctuated during the hospital stay and her last INR of 1.78 was after an increased dose of Coumadin from 2 to 4 mg daily. Next INR to be checked on 02/25/17. The patient became markedly deconditioned throughout her hospital stay and she required short-term rehabilitation at discharge. She is going to be placed in [facility] for the rehab. Please also note that the patient becomes frequently discouraged and continues to complain of shortness of breath due to anxiety more so than her ongoing lung disease since her oxygen saturation is well above 90% on her current oxygen at 3 L at discharge today. PHYSICAL EXAM: At the time of discharge, blood pressure of 116/63, heart rate of 93 and irregularly regular, respiratory rate 18, oxygen saturation 97% on 3 L of oxygen via nasal cannula, temperature 97.7. General: The patient is a very pleasant 86-year-old female who is in no acute distress. The patient is alert, awake and oriented x3, somewhat forgetful. HEENT: Head atraumatic, normocephalic. Eyes: Pupils equal and reactive to light and accommodation. Oropharynx clear. Mucosa moist. Neck: Supple. No JVD. No bruits bilaterally. Cardiovascular: Regular rate and rhythm. No murmur. Respiratory : Scant wheezes in bilateral mid lungs and rhonchi at right lung base. Abdomen : Soft, nontender. Bowel sounds present in all 4 quadrants. Extremities: 2+ pitting pedal edema bilaterally. Pulses are +2 bilaterally. There is no clubbing or cyanosis. Neuro Evaluation: Speech clear. Cranial nerves II through XII grossly intact. Motor strength is 5/5 bilaterally. Please note that this is a short summary of the patient's hospitalization. Please refer to full medical records for details. TIME SPENT: Approximately 45 minutes was spent on the patient's discharge. [id number]/CPS #: [id number] MTDD
== END 2017-02-23 13:25 | DRG 871 ==
LOC: ED 08:53 → ICU 11:02 → MEDTELE 02-17 09:40
PROVIDERS: ADMIT Internal Medicine; ATTEND Internal Medicine
PROC: 3E033XZ Introduction of Vasopressor into Peripheral Vein, Percutaneous Approach (ICD-10-PCS; principal; 2017-02-15)
DX: A41.9 Sepsis, unspecified organism (principal); J96.21 Acute and chronic respiratory failure with hypoxia; J15.5 Pneumonia due to Escherichia coli; N17.9 Acute kidney failure, unspecified; I50.33 Acute on chronic diastolic (congestive) heart failure; G93.40 Encephalopathy, unspecified; E87.2 Acidosis; D69.6 Thrombocytopenia, unspecified; J44.0 Chronic obstructive pulmonary disease with (acute) lower respiratory infection; I13.0 Hypertensive heart and chronic kidney disease with heart failure and stage 1 through stage 4 chronic kidney disease, or unspecified chronic kidney disease; J96.22 Acute and chronic respiratory failure with hypercapnia; J44.1 Chronic obstructive pulmonary disease with (acute) exacerbation; I48.91 Unspecified atrial fibrillation; E78.00 Pure hypercholesterolemia, unspecified; I25.10 Atherosclerotic heart disease of native coronary artery without angina pectoris; K21.9 Gastro-esophageal reflux disease without esophagitis; M17.0 Bilateral primary osteoarthritis of knee; M47.9 Spondylosis, unspecified; G62.9 Polyneuropathy, unspecified; F41.9 Anxiety disorder, unspecified; F32.9 Major depressive disorder, single episode, unspecified; E89.0 Postprocedural hypothyroidism; R40.2412 Glasgow coma scale score 13-15, at arrival to emergency department; G89.29 Other chronic pain; I27.2 Other secondary pulmonary hypertension; N18.3 Chronic kidney disease, stage 3 (moderate); R65.20 Severe sepsis without septic shock; Z87.891 Personal history of nicotine dependence; Z88.6 Allergy status to analgesic agent; Z88.1 Allergy status to other antibiotic agents; Z88.0 Allergy status to penicillin; Z88.8 Allergy status to other drugs, medicaments and biological substances; Z88.2 Allergy status to sulfonamides; Z90.49 Acquired absence of other specified parts of digestive tract; Z90.3 Acquired absence of stomach [part of]; Z90.710 Acquired absence of both cervix and uterus; Z98.42 Cataract extraction status, left eye; Z98.41 Cataract extraction status, right eye; Z86.11 Personal history of tuberculosis; Z82.49 Family history of ischemic heart disease and other diseases of the circulatory system; Z99.81 Dependence on supplemental oxygen; Z79.82 Long term (current) use of aspirin; Z79.01 Long term (current) use of anticoagulants
CPT/HCPCS: 36415; 71010; 71020; 80048; 80053; 81003; 82040; 82330; 82803; 83605; 83735; 83880; 84443; 84484; 85025; 85610; 85730; 86140; 87040; 87070; 87077; 87186; 87205; 87641; 87899; 93005; 94640; 94664; 94760; A9270-GY; J0456; J0610; J0696; J1940; J2270; J3475; J3480; J7512

== ENCOUNTER → 2017-02-26 04:35 | Emergency (ER) | payer MEDICARE, BC ==
[~2017-02-26 04:35] MED LIST changes: -Buffered Lidocaine 1% SYR 3ML* 3 ML/SYR SYRINGE INTRADERM ONE; -Famotidine IV* 10 MG/ML 2 ML (20 mg) IV ONE; +oxyCODONE TAB* 5 MG TAB PO ONE
[2017-02-26 06:42] LABS: Hematocrit 30 % (35-47); Mean Corpuscular HGB Conc 33 g/dl (31-36); Mean Corpuscular Hemoglobin 29 pg (27-31); Mean Corpuscular Volume 89 fL (80-97); Mean Platelet Volume 8 um3 (7.4-10.4); Red Blood Count 3.44 10^6/ul (4.0-5.4); Red Cell Distribution Width 15 % (10.5-15); White Blood Count 7.2 10^3/ul (3.5-10.8)
--- NOTE | 2017-02-26 06:42 | ED ---
Bairon Xie Alfonso, scribed for Bridger Urbano MD on 02/26/17 at 0550 . Lower Extremity - HPI Summary HPI Summary: This patient is an 86 year [facility] F [facility] with a chief complaint of bilateral leg pain worse since two days ago. The patient rates the pain 10/10 in severity. Symptoms aggravated and alleviated by nothing. She states she has had this pain before, but not this severe. - History of Current Complaint Chief Complaint: EDExtremityLower Stated Complaint: BOTH LEGS PAIN Time Seen by Provider: 02/26/17 04:36 Hx Obtained From: Patient Onset of Pain: Days - 2 Onset/Duration: Worse Since - 2 days ago Severity Initially: Severe Severity Currently: Severe Pain Intensity: 10 Pain Scale Used: 0-10 Numeric Timing: Constant Location: Is Discrete @ - bilateral legs Aggravating Factor(s): Nothing Alleviating Factor(s): Nothing - Allergies/Home Medications Allergies/Adverse Reactions: Allergies Allergy/AdvReac Type Severity Reaction Status Date / Time Ciprofloxacin [From Cipro] Allergy Unknown Hives Verified 02/14/17 09:14 Codeine Allergy Unknown Hives Verified 02/14/17 09:14 Fentanyl Allergy Unknown Difficulty Verified 02/14/17 09:14 Breathing Penicillins [PCN] Allergy Unknown Hives Verified 02/14/17 09:14 Sulfamethoxazole AdvReac Intermediate Nausea Verified 02/14/17 09:14 w/Trimethoprim [From Bactrim] PMH/Surg Hx/FS Hx/Imm Hx Endocrine/Hematology History: Reports: Hx Anticoagulant Therapy - coumadin for a fib, Hx Blood Disorders - chronic thrombocytopenia, Hx Thyroid Disease - juwan, Hx Anemia - HX OF Denies: Hx Diabetes Cardiovascular History: Reports: Hx Angina, Hx Congestive Heart Failure, Hx Coronary Artery Disease, Hx Hypercholesterolemia, Hx Hypertension, Other Cardiovascular Problems/Disorders - AFIB Denies: Hx Deep Vein Thrombosis, Hx Myocardial Infarction, Hx Pacemaker/ICD, Hx Valvular Heart Disease Respiratory History: Reports: Hx Asthma, Hx Chronic Obstructive Pulmonary Disease (COPD), Hx Pneumonia - Hospitalized from 10/14/14 - 10/25/14 and 04/26, Hx Seasonal Allergies, Other Respiratory Problems/Disorders - BILAT PNEUMONIA . PT WITH TB 1994 Denies: Hx Lung Cancer, Hx Pulmonary Embolism GI History: Reports: Hx Gall Bladder Disease - cholecystectomy 1976, Hx Gastroesophageal Reflux Disease - CONTROL WITH MED, Hx Ulcer, Other GI Disorders - partial gastrectomy 1972 Denies: Hx Gastrointestinal Bleed, Hx Urosepsis History: Reports: Other Problems/Disorders - hysterectomy breast biopsy left Denies: Hx Kidney Stones, Hx Renal Disease Musculoskeletal History: Reports: Hx Arthritis - BACK, KNEES, Hx Back Problems - laminectomy, Hx Orthopedic Injury - hx r arm, r ankle, toes, Other Musculoskeletal History - back surgery 1995 Sensory History: Reports: Hx Cataracts - removed, Hx Contacts or Glasses - READING GLASSES Denies: Hx Hearing Aid, Other Sensory Impairments Opthamlomology History: Reports: Hx Cataracts - removed, Hx Contacts or Glasses - READING GLASSES Denies: Other Sensory Impairments Neurological History: Reports: Other Neuro Impairments/Disorders - PERIPHERAL NEUROPATHY BILAT, PAIN CLINIC PATIENT Denies: Hx Dementia, Hx Developmental Delay, Hx Migraine, Hx Seizures, Hx Transient Ischemic Attacks (TIA) Psychiatric History: Reports: Hx Anxiety - CONTROL WITH MED, Hx Depression - CONTROL WITH MED Denies: Hx Panic Disorder, Hx Schizophrenia, Hx Bipolar Disorder, Hx Suicide Attempt, Hx of Violent Episodes Against Others - Cancer History Cancer Type, Location and Year: breast lumpectomy, no treatment Hx Chemotherapy: No Hx Radiation Therapy: No - Surgical History Surgery Procedure, Year, and Place: T&A A CHILD. groin abscess A CHILD. appendectomy, cholecystectomy, [facility]. hysterectomy partial, [facility]. thyroidectomy partial, [facility]. L breast and R lung biopsies, [facility]. 1995 laminectomy L4,5, [facility]. gastrectomy partial 1972;. Carpal Tunnel Surgery Right Wrist by Dr. Chauhan in July 2015. BILAT CATARACTS, [facility]. right lymph node bx 1994, [facility]. left leg surgery- vein 2003 [facility]. 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, per pt Denies: Hx Clostridium Difficile, Hx Hepatitis, Hx Human Immunodeficiency Virus (HIV), Hx of Known/Suspected MRSA, Traveled Outside the [place] in Last 30 Days - Family History Known Family History: Positive: Cardiac Disease Negative: Hypertension, Diabetes - Social History Alcohol Use: None Hx Substance Use: No Substance Use Type: Reports: None Substance Use Comment - Amount & Last Used: oxycodone and oxymorphone Hx Tobacco Use: Yes Smoking Status (MU): Former Smoker Type: Cigarettes Amount Used/How Often: 2 packs per week Length of Time of Smoking/Using Tobacco: ON AND OFF 45 YRS Have You Smoked in the Last Year: No Review of Systems Negative: Fever Positive: Other - Positive bilateral leg pain. All Other Systems Reviewed And Are Negative: Yes Physical Exam Triage Information Reviewed: Yes Vital Signs On Initial Exam: Initial Vitals Temp Pulse Resp BP Pulse Ox 98.2 F 110 18 141/76 100 02/26/17 04:43 02/26/17 04:43 02/26/17 04:43 02/26/17 04:43 02/26/17 04:43 Vital Signs Reviewed: Yes Appearance: Positive: Well-Appearing, Pain Distress - Moderate Skin: Positive: Warm, Skin Color Reflects Adequate Perfusion, Dry Head/Face: Positive: Normal Head/Face Inspection Eyes: Positive: EOMI, KRYS ENT: Positive: Normal ENT inspection Neck: Positive: Supple, Nontender Respiratory/Lung Sounds: Positive: Clear to Auscultation, Breath Sounds Present Cardiovascular: Positive: RRR Abdomen Description: Positive: Nontender, Soft Bowel Sounds: Positive: Present Musculoskeletal: Positive: Strength/ROM Intact, Other - Bilateral pedal edema and tenderness to palpation in both legs. Neurological: Positive: Normal, Sensory/Motor Intact, Alert, Oriented to Person Place, Time Psychiatric: Positive: Affect/Mood Appropriate Diagnostics - Vital Signs Vital Signs Temp Pulse Resp BP Pulse Ox 02/26/17 04:43 98.2 F 110 18 141/76 100 - Laboratory Lab Statement: Any lab studies that have been ordered have been reviewed, and results considered in the medical decision making process. Lower Extremity Course/Dx - Course Course Of Treatment: EVALUATION FOR CHF/DVT PENDING AT SHIFT CHANGE. - Diagnoses Provider Diagnoses: Bilateral lower extremity pain Discharge - Discharge Plan Condition: Stable Disposition: OTHER Discharge Disposition Comment: . Referrals: Jose Thompson MD [Primary Care Provider] - The documentation as recorded by the Bairon lynne Alfonso accurately reflects the service I personally performed and the decisions made by me, Bridger Urbano MD.
[2017-02-26 06:43] LABS: Urine Bilirubin Negative (Negative); Urine Glucose Negative (Negative); Urine Nitrite Negative (Negative)
[2017-02-26 06:57] LABS: BUN/Creatinine Ratio 37.1 (8-20); C Reactive Protein 31.17 mg/L (< 5.00); Calcium 9.1 mg/dL (8.6-10.3); EGFR Non-African American 44.3 (>60); Globulin 3.4 g/dL (2-4); Magnesium 1.9 mg/dL (1.9-2.7); Potassium 4.2 mmol/L (3.5-5.0); Total Bilirubin 0.4 mg/dL (0.2-1.0); Total Protein 6.4 g/dL (6.4-8.9)
[2017-02-26 07:03] LABS: Troponin I 0.02 ng/mL (<0.04)
--- NOTE | 2017-02-26 08:03 | RAD ---
HISTORY: pedal edema COMPARISONS: February 20, 2017 VIEWS:1: Single frontal portable view of the chest at 6:05 AM FINDINGS: LINES AND TUBES: None. CARDIOMEDIASTINAL SILHOUETTE: The cardiomediastinal silhouette is normal for portable technique. PLEURA: There is a small right pleural effusion. LUNG PARENCHYMA: There is persistent patchy alveolar opacification of the right upper and lower lung, somewhat improved from the previous examination. ABDOMEN: The upper abdomen is clear. There is no subphrenic gas. BONES AND SOFT TISSUES: No bone or soft tissue abnormalities are noted. IMPRESSION: PERSISTENT BUT IMPROVING MULTIFOCAL CONSOLIDATION OF THE RIGHT LUNG WITH SMALL RIGHT PLEURAL EFFUSION.
--- NOTE | 2017-02-26 08:28 | RAD ---
Indication: Bilateral leg edema Duplex Doppler sonography of the deep venous system of both lower extremities was performed. Bilaterally the common femoral veins, proximal greater saphenous veins, proximal deep femoral veins, femoral veins, popliteal veins, posterior tibial veins and peroneal veins appear patent and compressible. Views of the calf veins are limited due to body habitus and edema. IMPRESSION: NO EVIDENCE OF DEEP VENOUS THROMBOSIS OF EITHER LOWER EXTREMITY IS PRESENT. VIEWS OF THE CALF VEINS ARE LIMITED DUE TO BODY HABITUS AND EDEMA.
[2017-02-26 09:42] VITALS: BP 147/83
--- NOTE | 2017-02-27 12:06 | ED ---
Teja Xie Rebecca, scribed for Armando Espinoza MD on 02/26/17 at 0806 . Progress - Progress Note Progress Note: Pt signed out from Dr. Urbano at 0700. Vital signs: reviewed General: Patient is comfortable lying in stretcher with no signs of distress HEENT: within normal limits Lungs: CTA B/L CVS: S1 & S2 present. No murmurs appreciated. ABDOMEN: Soft, non-tender. No signs of distention. No rebound no guarding, and no masses palpated. Bowel sounds are normal. EXTREMITIES: FROM in all major joints, 1 + edema, no cyanosis or clubbing. NEURO: Alert and oriented x 3. - Results/Orders Results/Orders: Venous Doppler US: NO EVIDENCE OF DEEP VENOUS THROMBOSIS OF EITHER LOWER EXTREMITY IS PRESENT. VIEWS OF THE CALF VEINS ARE LIMITED DUE TO BODY HABITUS AND EDEMA. Course/Dx - Course Course Of Treatment: This pt was signed out by Dr. Urbano. He requested to f/ u the bilateral US to r/o DVT. He also reports that the pt has chronic bialteral LE pain. Test results shows a chronic anemia, INR is 1.96, she has a chronic renal insufficiency, CRP is 31.1 and BNP of 571 which is her usual range of BNP. US reveals NO EVIDENCE OF DEEP VENOUS THROMBOSIS OF EITHER LOWER EXTREMITY IS PRESENT. VIEWS OF THE CALF VEINS ARE LIMITED DUE TO BODY HABITUS AND EDEMA. Before I saw the pt, she was given Oxycodone 50 mg, which is her usual dose for pain. I did examine the legs and she has good pulses, there is no edema, no calf tenderness. I believe this is just an exacerbation of the chronic LE pain. The lungs are clear and the heart is within normal sounds, therefore the pt will be D/C to home to f/u with PCP. At this pt, the pain is only 2/10 and she is feeling better. She is hemodynamically stable and A&Ox3. I discussed all the findings and test results with the patient. Patient was instructed to return to the emergency room immediately if any of the symptoms return or worsens. Plan of care was discussed with the patient and understands and agrees. All questions were answered at patient satisfaction. There were no further complaints or concerns. - Diagnoses Provider Diagnoses: Chronic pain of lower extremity, bilateral The documentation as recorded by the scribe, DiFabio,Purnima accurately reflects the service I personally performed and the decisions made by me, Armando Espinoza MD.
== END ==
LOC: ED 04:35
DX: M79.605 Pain in left leg (principal); M79.604 Pain in right leg; G89.29 Other chronic pain; Z87.891 Personal history of nicotine dependence
CPT/HCPCS: 36415; 71010; 80053; 81003; 83605; 83690; 83735; 83880; 84484; 85025; 85610; 85730; 86140; 93970; 99283; A9270-GY

== ENCOUNTER 2017-03-04 15:33 | Inpatient (IN) | payer MEDICARE, BC ==
[2017-03-04 16:56] LABS: Hematocrit 34 % (35-47); Hemoglobin 11.1 g/dl (12.0-16.0); Mean Corpuscular HGB Conc 33 g/dl (31-36); Mean Corpuscular Hemoglobin 29 pg (27-31); Mean Corpuscular Volume 89 fL (80-97); Mean Platelet Volume 7 um3 (7.4-10.4); Red Blood Count 3.83 10^6/ul (4.0-5.4); Red Cell Distribution Width 16 % (10.5-15); White Blood Count 7.9 10^3/ul (3.5-10.8)
[2017-03-04 17:12] LABS: Albumin 3.3 g/dL (3.2-5.2); BUN/Creatinine Ratio 23.3 (8-20); C Reactive Protein 8.32 mg/L (< 5.00); EGFR African American 54.8 (>60); EGFR Non-African American 42.6 (>60); Globulin 3.5 g/dL (2-4); Magnesium 1.8 mg/dL (1.9-2.7); Potassium 3.9 mmol/L (3.5-5.0); Total Bilirubin 0.7 mg/dL (0.2-1.0); Total Protein 6.8 g/dL (6.4-8.9)
[2017-03-04 17:14] LABS: Troponin I 0.01 ng/mL (<0.04)
--- NOTE | 2017-03-04 17:32 | RAD ---
HISTORY: Chest pain COMPARISONS: February 26, 2017 VIEWS:1: Single frontal portable view of the chest at 4:50 PM. The patient is obliqued to the right. FINDINGS: LINES AND TUBES: None. CARDIOMEDIASTINAL SILHOUETTE: The cardiomediastinal silhouette is normal for portable technique. PLEURA: The costophrenic angles are sharp. No pleural abnormalities are noted. LUNG PARENCHYMA: There is persistent patchy alveolar opacification of the right upper lung. There has been improved aeration of the right lower lung. ABDOMEN: The upper abdomen is clear. There is no subphrenic gas. BONES AND SOFT TISSUES: No bone or soft tissue abnormalities are noted. IMPRESSION: PERSISTENT AIRSPACE DISEASE OF THE RIGHT OF THE RIGHT UPPER LUNG. IMPROVED AERATION OF THE RIGHT LOWER LUNG. RECOMMEND FOLLOW-UP UNTIL RESOLUTION TO EXCLUDE UNDERLYING PULMONARY PARENCHYMAL PATHOLOGY.
[2017-03-04 17:45] LABS: TSH (Thyroid Stimulating Horm) 1.51 mcIU/mL (0.34-5.60)
[2017-03-04 18:00] LABS: Urine Bacteria Absent (Absent); Urine Bilirubin Negative (Negative); Urine Glucose Negative (Negative); Urine Nitrite Negative (Negative)
[2017-03-04] MEDS ORDERED: Morphine INJ* 4 MG/ML 1 ML SYRINGE IV ONE (18:26)
[2017-03-04] MEDS ORDERED: Ondansetron INJ* 2 MG/ML VIAL IV ONE (18:26)
--- NOTE | 2017-03-04 18:27 | ED ---
HPI Chest Pain - HPI Summary HPI Summary: Pt here w/ chest pain since either 8 or 9am this morning. Started while she was lying in bed. Central sternal region. Constant pressure. Associated sx of SOB earlier today - was given nitro on way over via ambulance and pain and breathing improved slightly. Reports she's 810 at present. States this feels like angina she's had in the past but more intense and lasting longer. Denies radiating sx, N/V/D, diaphoresis, headache, dizziness, lightheadedness, cough. Nothing makes it worse. Has chronic LE pain and this is worse since CP started. Takes coumadin for a. fib - reports she checks her INR at home and reports to PCP - not sure what last level was. Admits to random bloody nose yesterday w/ "small clots" - stopped quickly w/ pressure - no bleeding since. Denies bruising , hematuria, hematochezia. Recent h/o pneumonia in Rt lung w/ hospitalization. She's been staying at [facility] for rehab. Had anbx and reports feeling better since - she had Rt sided CP w/ pneumonia -pain today is different. Also admits to CHF, asthma/COPD for which she was using 2L O2 at night only. But since pneumonia, she uses 4L O2 continuously. Denies fever, chills, URI sx, rash/skin changes. She has been dealing with a Lt trapezius pain and has a lidoderm pain patch in place. She's not sure how long it's been there but reports the staff at [facility] placed it. Additionally admits she's had increased urination w/o pain - wondering if she may have a UTI. Denies dysuria, vaginal d/c, flank pain, back pain. Take oxycodone 15mg up to 5 x day for chronic pain. H/o HTN - on meds. H/o smoking - quit 26 yr ago. ETOH rarely. No illicit drugs. FAM HX: father w/ CHF, brother w/ aneurysm - History of Current Complaint Chief Complaint: EDChestWallPain Time Seen by Provider: 03/04/17 17:48 Hx Obtained From: Patient Pain Intensity: 8 - Additional Pertinent History Primary Care Physician: MANNY - Allergy/Home Medications Allergies/Adverse Reactions: Allergies Allergy/AdvReac Type Severity Reaction Status Date / Time Ciprofloxacin [From Cipro] Allergy Unknown Hives Verified 02/14/17 09:14 Codeine Allergy Unknown Hives Verified 02/14/17 09:14 Fentanyl Allergy Unknown Difficulty Verified 02/14/17 09:14 Breathing Penicillins [PCN] Allergy Unknown Hives Verified 02/14/17 09:14 Sulfamethoxazole AdvReac Intermediate Nausea Verified 02/14/17 09:14 w/Trimethoprim [From Bactrim] PMH/Surg Hx/FS Hx/Imm Hx Previously Healthy: Yes Endocrine/Hematology History: Reports: Hx Anticoagulant Therapy - coumadin for a fib, Hx Blood Disorders - chronic thrombocytopenia, Hx Thyroid Disease - juwan, Hx Anemia - HX OF Denies: Hx Diabetes Cardiovascular History: Reports: Hx Angina, Hx Congestive Heart Failure, Hx Coronary Artery Disease, Hx Hypercholesterolemia, Hx Hypertension, Other Cardiovascular Problems/Disorders - AFIB Denies: Hx Deep Vein Thrombosis, Hx Myocardial Infarction, Hx Pacemaker/ICD, Hx Valvular Heart Disease Respiratory History: Reports: Hx Asthma, Hx Chronic Obstructive Pulmonary Disease (COPD), Hx Pneumonia - Hospitalized from 10/14/14 - 10/25/14 and 04/26; 2016, Hx Seasonal Allergies, Other Respiratory Problems/Disorders - BILAT PNEUMONIA 10/25. PT WITH TB 1994 Denies: Hx Lung Cancer - 2L O2 at night - on 4L continuous since pneumonia January 2017, Hx Pulmonary Embolism GI History: Reports: Hx Gall Bladder Disease - cholecystectomy 1976, Hx Gastroesophageal Reflux Disease - CONTROL WITH MED, Hx Ulcer, Other GI Disorders - partial gastrectomy 1972 Denies: Hx Gastrointestinal Bleed, Hx Urosepsis History: Reports: Other Problems/Disorders - hysterectomy breast biopsy left Denies: Hx Kidney Stones, Hx Renal Disease Musculoskeletal History: Reports: Hx Arthritis - BACK, KNEES, Hx Back Problems - laminectomy, Hx Orthopedic Injury - hx r arm, r ankle, toes, Other Musculoskeletal History - back surgery 1995 Sensory History: Reports: Hx Cataracts - removed, Hx Contacts or Glasses - READING GLASSES Denies: Hx Hearing Aid, Other Sensory Impairments Opthamlomology History: Reports: Hx Cataracts - removed, Hx Contacts or Glasses - READING GLASSES Denies: Other Sensory Impairments Neurological History: Reports: Other Neuro Impairments/Disorders - PERIPHERAL NEUROPATHY BILAT, PAIN CLINIC PATIENT Denies: Hx Dementia, Hx Developmental Delay, Hx Migraine, Hx Seizures, Hx Transient Ischemic Attacks (TIA) Psychiatric History: Reports: Hx Anxiety - CONTROL WITH MED, Hx Depression - CONTROL WITH MED Denies: Hx Panic Disorder, Hx Schizophrenia, Hx Bipolar Disorder, Hx Suicide Attempt, Hx of Violent Episodes Against Others - Cancer History Cancer Type, Location and Year: breast lumpectomy, no treatment Hx Chemotherapy: No Hx Radiation Therapy: No - Surgical History Surgery Procedure, Year, and Place: T&A A CHILD. groin abscess A CHILD. appendectomy, cholecystectomy, [facility]. hysterectomy partial, [facility]. thyroidectomy partial, [facility]. L breast and R lung biopsies, [facility]. 1995 laminectomy L4,5, [facility]. gastrectomy partial 1972;. Carpal Tunnel Surgery Right Wrist by Dr. Chauhan in July 2015. BILAT CATARACTS, [facility]. right lymph node bx 1994, [facility]. left leg surgery- vein 2003 [facility]. Left Breast lumpectomy 1982, [facility] Hx Anesthesia Reactions: No - Immunization History Date of Tetanus Vaccine: 2013 Date of Influenza Vaccine: Fall 2012 Infectious Disease History: No Infectious Disease History: Reports: Hx Tuberculosis - , per pt Denies: Hx Clostridium Difficile, Hx Hepatitis, Hx Human Immunodeficiency Virus (HIV), Hx of Known/Suspected MRSA, Traveled Outside the in Last 30 Days - Family History Known Family History: Positive: Cardiac Disease - father - CHF, brother - aneurysm Negative: Hypertension, Diabetes - Social History Occupation: Retired Lives: At [facility] TYPICALLY HOME ALONE Alcohol Use: Rare Hx Substance Use: No Substance Use Type: Reports: None Substance Use Comment - Amount & Last Used: oxycodone and oxymorphone Hx Tobacco Use: Yes Smoking Status (MU): Former Smoker - QUIT 26 YRS AGO Type: Cigarettes Amount Used/How Often: 2 packs per week Length of Time of Smoking/Using Tobacco: ON AND OFF 45 YRS Have You Smoked in the Last Year: No Review of Systems Constitutional: Negative Eyes: Negative ENT: Negative Positive: Chest Pain - SEE hpi Respiratory: Negative Gastrointestinal: Other - SEE HPI Positive: see HPI Musculoskeletal: Negative Skin: Negative Neurological: Negative Psychological: Normal All Other Systems Reviewed And Are Negative: Yes Physical Exam Triage Information Reviewed: Yes Vital Signs On Initial Exam: Initial Vitals Temp Pulse Resp BP Pulse Ox 98.6 F 79 14 116/54 98 03/04/17 15:51 03/04/17 15:51 03/04/17 15:51 03/04/17 15:51 03/04/17 15:51 Vital Signs Reviewed: Yes Appearance: Positive: Well-Appearing, Pain Distress - Mild to moderate while lying on stretcher, Thin Skin: Positive: Warm, Dry - sparse, small areas of healing ecchymosis Head/Face: Positive: Normal Head/Face Inspection Eyes: Positive: Normal, EOMI, Conjunctiva Clear - anicteric sclera ENT: Positive: Hearing grossly normal Neck: Positive: Supple, Nontender Respiratory/Lung Sounds: Positive: Clear to Auscultation, Breath Sounds Present. Negative: Rales, Rhonchi, Subcutaneous Emphysema, Stridor, Tracheal Deviation, Wheezes Cardiovascular: Positive: Pulses are Symmetrical in both Upper and Lower Extremities - faint pedal pulse B/L, cap refill >2 seconds, Other - irregularly irregular. Negative: Murmur, Rub, Leg Edema Left - (-) Tala's B/L, Leg Edema Right Abdomen Description: Positive: No Organomegaly, Soft, Other: - TTP over epigastric and lower pelvic area - no rebounding Bowel Sounds: Positive: Present Musculoskeletal: Positive: Normal, Strength/ROM Intact Neurological: Positive: Normal, Sensory/Motor Intact, Alert, Oriented to Person Place, Time, CN Intact II-III Psychiatric: Positive: Anxious - Candy Coma Scale Coma Scale Total: 15 Diagnostics - Vital Signs Vital Signs Temp Pulse Resp BP Pulse Ox 03/04/17 17:00 76 14 115/68 97 03/04/17 16:30 64 14 116/66 99 03/04/17 16:02 75 03/04/17 16:01 77 15 116/54 97 03/04/17 16:00 75 13 97 03/04/17 15:58 75 96 03/04/17 15:51 98.6 F 79 14 116/54 98 - Laboratory Lab Results: Lab Results 03/04/17 03/04/17 03/04/17 Range/Units 16:48 16:48 16:48 WBC 7.9 (3.5-10.8) 10^3/ul RBC 3.83 L (4.0-5.4) 10^6/ul Hgb 11.1 L (12.0-16.0) g/dl Hct 34 L (35-47) % MCV 89 (80-97) fL MCH 29 (27-31) pg MCHC 33 (31-36) g/dl RDW 16 H (10.5-15) % Plt Count 345 (150-450) 10^3/ul MPV 7 L (7.4-10.4) um3 Neut % (Auto) 85.7 H (38-83) % Lymph % (Auto) 8.7 L (25-47) % Ocean % (Auto) 3.8 (1-9) % Eos % (Auto) 0.3 (0-6) % Baso % (Auto) 1.5 (0-2) % Absolute Neuts (auto) 6.7 (1.5-7.7) 10^3/ul Absolute Lymphs (auto) 0.7 L (1.0-4.8) 10^3/ul Absolute Monos (auto) 0.3 (0-0.8) 10^3/ul Absolute Eos (auto) 0 (0-0.6) 10^3/ul Absolute Basos (auto) 0.1 (0-0.2) 10^3/ul Absolute Nucleated RBC 0 10^3/ul Nucleated RBC % 0 INR (Anticoag Therapy) 4.68 H (0.89-1.11) APTT 40.1 H (26.0-36.3) seconds D-Dimer, Quantitative Pending Sodium 136 (133-145) mmol/L Potassium 3.9 (3.5-5.0) mmol/L Chloride 94 L (101-111) mmol/L Carbon Dioxide 36 H (22-32) mmol/L Anion Gap 6 (2-11) mmol/L BUN 28 H (6-24) mg/dL Creatinine 1.20 H (0.51-0.95) mg/dL Est GFR ( Amer) 54.8 (>60) Est GFR (Non-Af Amer) 42.6 (>60) BUN/Creatinine Ratio 23.3 H (8-20) Glucose 148 H (70-100) mg/dL Lactic Acid (0.5-2.0) mmol/L Calcium 9.0 (8.6-10.3) mg/dL Magnesium 1.8 L (1.9-2.7) mg/dL Total Bilirubin 0.70 (0.2-1.0) mg/dL AST 22 (13-39) U/L ALT 30 (7-52) U/L Alkaline Phosphatase 85 (34-104) U/L Total Creatine Kinase 19 (10-223) U/L CK-MB (CK-2) 1.3 (0.6-6.3) ng/mL Troponin I 0.01 (<0.04) ng/mL C-Reactive Protein 8.32 H (< 5.00) mg/L B-Natriuretic Peptide ( - 100) pg/mL Total Protein 6.8 (6.4-8.9) g/dL Albumin 3.3 (3.2-5.2) g/dL Globulin 3.5 (2-4) g/dL Albumin/Globulin Ratio 0.9 L (1-3) Lipase 33 (11.0-82.0) U/L TSH 1.51 (0.34-5.60) mcIU/mL Urine Color Urine Appearance Urine pH (5-9) Ur Specific [place] (1.010-1.030) Urine Protein (Negative) Urine Ketones (Negative) Urine Blood (Negative) Urine Nitrate (Negative) Urine Bilirubin (Negative) Urine Urobilinogen (Negative) Ur Leukocyte Esterase (Negative) Urine WBC (Auto) (Absent) Urine RBC (Auto) (Absent) Ur Squamous Epith Cells (Absent) Urine Bacteria (Absent) Urine Glucose (Negative) 03/04/17 03/04/17 03/04/17 Range/Units 16:48 16:48 17:40 WBC (3.5-10.8) 10^3/ul RBC (4.0-5.4) 10^6/ul Hgb (12.0-16.0) g/dl Hct (35-47) % MCV (80-97) fL MCH (27-31) pg MCHC (31-36) g/dl RDW (10.5-15) % Plt Count (150-450) 10^3/ul MPV (7.4-10.4) um3 Neut % (Auto) (38-83) % Lymph % (Auto) (25-47) % Ocean % (Auto) (1-9) % Eos % (Auto) (0-6) % Baso % (Auto) (0-2) % Absolute Neuts (auto) (1.5-7.7) 10^3/ul Absolute Lymphs (auto) (1.0-4.8) 10^3/ul Absolute Monos (auto) (0-0.8) 10^3/ul Absolute Eos (auto) (0-0.6) 10^3/ul Absolute Basos (auto) (0-0.2) 10^3/ul Absolute Nucleated RBC 10^3/ul Nucleated RBC % INR (Anticoag Therapy) (0.89-1.11) APTT (26.0-36.3) seconds D-Dimer, Quantitative Sodium (133-145) mmol/L Potassium (3.5-5.0) mmol/L Chloride (101-111) mmol/L Carbon Dioxide (22-32) mmol/L Anion Gap (2-11) mmol/L BUN (6-24) mg/dL Creatinine (0.51-0.95) mg/dL Est GFR ( Amer) (>60) Est GFR (Non-Af Amer) (>60) BUN/Creatinine Ratio (8-20) Glucose (70-100) mg/dL Lactic Acid 0.8 (0.5-2.0) mmol/L Calcium (8.6-10.3) mg/dL Magnesium (1.9-2.7) mg/dL Total Bilirubin (0.2-1.0) mg/dL AST (13-39) U/L ALT (7-52) U/L Alkaline Phosphatase (34-104) U/L Total Creatine Kinase (10-223) U/L CK-MB (CK-2) (0.6-6.3) ng/mL Troponin I (<0.04) ng/mL C-Reactive Protein (< 5.00) mg/L B-Natriuretic Peptide 288 H ( - 100) pg/mL Total Protein (6.4-8.9) g/dL Albumin (3.2-5.2) g/dL Globulin (2-4) g/dL Albumin/Globulin Ratio (1-3) Lipase (11.0-82.0) U/L TSH (0.34-5.60) mcIU/mL Urine Color Straw Urine Appearance Clear Urine pH 8.0 (5-9) Ur Specific [place] 1.009 L (1.010-1.030) Urine Protein Negative (Negative) Urine Ketones Negative (Negative) Urine Blood Negative (Negative) Urine Nitrate Negative (Negative) Urine Bilirubin Negative (Negative) Urine Urobilinogen Negative (Negative) Ur Leukocyte Esterase Trace H (Negative) Urine WBC (Auto) Trace(0-5/hpf) (Absent) Urine RBC (Auto) Absent (Absent) Ur Squamous Epith Cells Present H (Absent) Urine Bacteria Absent (Absent) Urine Glucose Negative (Negative) Result Diagrams: 03/04/17 16:48 03/04/17 16:48 Lab Statement: Any lab studies that have been ordered have been reviewed, and results considered in the medical decision making process. Re-Evaluation - Re-Evaluation First Eval Change: Improved - pain improved w/ morphine Chest Pain Course/Dx - Course Course Of Treatment: Pt presents w/ central pain - quality is similar to previous angina but different in that it's worse and constant. She reports associated SOB with this pain and worse leg pain than usual. Received nitro on ambulance ride over with minimal relief - reports 8/10 pain at present. She also admits she was recently d/c'd from [facility] for pneumonia (report indicates pt had sepsis during her stay requiring some time in ICU for hypotension, hypoxemia ). She has COPD and CHF which also contriobuted to complications during her stay. Prior to this pneumonia, she was living at home and using 2L O2 at night only. Since d/c from hospital she in on 4L O2 contiunously and currently residing at [facility] for rehab to address her deconditioned state. Here labs are unremarkable for infection tonight however her INR is notable at 4.6 ( she takes coumadin for a. fib). ECG appears to have baseline a. fib w/o ST elevations. A CTA of the chest was ordered however for concern of thoracic aneurysm with dissection as her brother has h/o aneurysm and this is a different chest pain than she's accustomed to having. CTA reveals interval development of cavitary mass of the superior segment of the Rt lower lobe measuring 4.4cm in size. Multiple smaller nodules are noted throughout the Rt lung. The appearance is most consistent with neoplasm, including primary lung neoplasm versus metastatic disease to the lung. There is also mediastinal lymphadenopathy. 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 She will be admitted to [facility] for probable neoplasm but possible infection since she is s/p pneumonia which per radiologists' reports, appeared to be improving since anbx and steroids. Spoke w / Dr. Skelton and Dr. Ibrahim who agree to admit. - Diagnoses Provider Diagnoses: Chest pain, Right lower lobe lung mass Discharge - Discharge Plan Condition: Stable Disposition: ADMITTED TO [facility]
[2017-03-04] MEDS ORDERED: Iodixanol* (CONTRAST) 320 MG/ML 100 ML SDV IV ONE (19:22)
--- NOTE | 2017-03-04 19:47 | RAD ---
HISTORY: Chest pain, hemorrhage COMPARISONS: CT dated August 20, 2016, CT of the abdomen and pelvis of November 21, 2015 TECHNIQUE: Multiple contiguous axial CT scans were obtained of the chest, abdomen, and pelvis after the administration of intravenous contrast. Coronal and sagittal multiplanar reformations are submitted for review.. 3-D volumetric reconstructions of the aorta are also submitted for review. FINDINGS: CHEST NECK AND THYROID: The right thyroid is enlarged. The left thyroid is atrophic. CHEST WALL: There is no lower cervical, axillary, or supraclavicular lymphadenopathy by size criteria. HEART AND PERICARDIUM: The heart is unremarkable. AORTA AND PULMONARY VASCULATURE: There is calcification of the thoracic aorta. The pulmonary vasculature is unremarkable. MEDIASTINUM: There are multiple mediastinal lymph nodes, largest measuring up to 1.2 cm in size in the precarinal region. TRANG: There are bilateral subcentimeter short axis hilar lymph nodes. AIRWAY AND ESOPHAGUS: The airway is unremarkable, without endobronchial filling defect. The esophagus is grossly normal. LUNG PARENCHYMA: There is a cavitary mass of the superior segment of the right lower lobe, measuring proximally 4.4 x 4.1 x 3.2 cm in size. Additionally, there is a nodular density of the right middle lobe measuring roughly 2.2 cm in size. Scattered smaller nodules are noted within the right lung diffusely. PLEURA: No pleural abnormalities are noted. BONES AND SOFT TISSUES: Degenerative changes are noted. ABDOMEN/PELVIS: LIVER: The liver is normal in shape, size, contour, and attenuation. BILE DUCTS: There is moderate intrahepatic biliary dilatation. There is markedly dilatation of the common duct which measures up to 2.4 cm in diameter. GALLBLADDER: The gallbladder is not visualized. Surgical clips are noted in the gallbladder fossa. PANCREAS: The pancreas is atrophic and is not well visualized. SPLEEN: There is a cystic lesion of the inferior margin of the spleen measuring simple fluid in attenuation. This is stable from the previous examination. UPPER GI TRACT: Evaluation of the gastrointestinal tract is limited by incomplete gastric distention. The upper GI tract is unremarkable. SMALL BOWEL \T\ MESENTERY: The small bowel is normal in contour, course, and caliber. There is no obstruction or dilatation. COLON: The colon is normal in contour, course, caliber. There is no pericolonic inflammatory change. ADRENALS: There is a 1.4 cm right adrenal nodule. KIDNEYS: The kidneys are normal in shape, size, contour, and axis. There is no hydronephrosis or nephrolithiasis. BLADDER: The bladder is smooth in contour. PELVIC ORGANS: The pelvic organs are not visualized. AORTA: There is calcific atherosclerotic disease of the abdominal aorta and its branches. 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 IVC: Unremarkable LYMPH NODES: There is no lymphadenopathy by size criteria. ABDOMINAL WALL: There is no evidence for abdominal wall hernia. BONES: Degenerative changes are noted of the spine OTHER: None IMPRESSION: 1. THERE HAS BEEN INTERVAL DEVELOPMENT OF A CAVITARY MASS OF THE SUPERIOR SEGMENT OF THE RIGHT LOWER LOBE MEASURING UP TO 4.4 CENTERS IN SIZE. MULTIPLE SMALLER NODULES ARE NOTED THROUGHOUT THE RIGHT LUNG. THE APPEARANCE IS MOST CONSISTENT WITH NEOPLASM, INCLUDING PRIMARY LUNG NEOPLASM VERSUS METASTATIC DISEASE TO THE LUNG. 2. RIGHT ADRENAL NODULE. 3. EMPHYSEMA. 4. MEDIASTINAL LYMPHADENOPATHY. 5. THERE IS MARKED BILIARY DILATATION. THIS IS SIMILAR TO THE 2017 EXAMINATION. 6. SPLENIC CYST. 7. THERE IS A SMALL SACCULAR ANEURYSM OF THE INFRARENAL ABDOMINAL AORTA MEASURING 0.4 X 0.6 CM TRANSVERSELY .
[2017-03-04] MEDS ORDERED: Phytonadione Oral Solution* 5 MG/25 ML UDC PO ONE (21:10)
[2017-03-04] MEDS ORDERED: Magnesium Sulfate 2 GM IV* 2 GM/50 ML BAG IVPB ONE (21:10)
[2017-03-04] MEDS ORDERED: Ondansetron INJ* 2 MG/ML VIAL IV PRN (21:10)
[2017-03-04] MEDS ORDERED: Levalbuterol HFA INHALER* 1 PUFF MDI INH PRN (21:30)
[2017-03-04] MEDS ORDERED: Albuterol/Ipratropium NEB.SOL* Albuterol 2.5 MG/Ipratropium 0.5 MG 3 ML INH PRN (21:30)
[2017-03-04] MEDS: oxyCODONE TAB* 5 MG TAB PO PRN (23:17)
[2017-03-05] MEDS: Oxymorphone ER (NF) 5 MG TAB PO SCH ×3 (01:10→21:10)
--- NOTE | 2017-03-05 03:41 | HP ---
CC: Dr. Thompson * HISTORY AND PHYSICAL: DATE OF ADMISSION: 03/04/17 PRIMARY CARE PROVIDER: Dr. Thompson. ATTENDING PHYSICIAN WHILE IN THE HOSPITAL: Dr. Audi Gamez * (report dictated by David Estes NP). CHIEF COMPLAINT: Chest pain. HISTORY OF PRESENT ILLNESS: Ms. Saldana is an 86-year-old female patient, who has a history of AFib, COPD, chronic pain, hypothyroidism, diastolic CHF with an EF of 60% to 65%, history of tricuspid regurg, thrombocytopenia, neuropathy , hypertension, and a history of coronary artery disease. She comes into the ER today stating that she has been having some chest discomfort started during this morning when she woke up at 9 in the morning and she describes it is in front of her chest, mostly pointing the right side and then it is going over to the left. She describes the pain as an extensive pressure and heaviness. She says this has been constant since 9 o'clock this morning. She said has been a little bit more short of breath and she recently was here with sepsis secondary to an E. coli pneumonia. She was seen by ID. She did well on antibiotics and was sent home on steroid taper, nebs, and was doing well until today, when she had the chest discomfort. There have been no reports of fever. There have been no reports of vomiting or diarrhea. No reports of cough. Now, she says that it has improved compared to her baseline and she says that she still feels somewhat short of breath. She came into the ER today because the chest pain was evaluated and ultimately it was found that she has concerning cavitary lesion on her x-ray. In addition to this, she was noted to have some chest discomfort and because of the chest pain and her history of a new mass, we were asked to evaluate for admission. PAST MEDICAL HISTORY: Significant for: 1. AFib. 2. COPD. 3. Chronic pain. 4. Hypothyroidism. 5. History of diastolic heart failure. 6. Tricuspid regurg. 7. Hyperlipidemia. 8. Neuropathy. 9. Hypertension. 10. CAD. PAST SURGICAL HISTORY: She has had a: 1. Gastrectomy. 2. Thyroidectomy. 3. Laparoscopic cholecystectomy. 4. Carpal tunnel release. MEDICATIONS: Home meds include according to the list that I was able to obtain: 1. She is on prednisone taper, she is now on 10 mg for 1 more day and then 5 mg for 4 days. 2. Oxycodone 15 mg every 4 hours as needed. 3. Lyrica 25 mg p.o. four times a day. 4. MiraLAX 17 g p.o. daily. 5. Protonix 40 mg daily. 6. Opana 15 mg p.o. every 12 hours. 7. Nitro 0.4 mg sublingual q.5 minutes x3 p.r.n. chest pain. 8. Linzess 290 mcg p.o. q.a.m. 9. Lidoderm patch, 1 patch transdermally at bedtime. 10. Synthroid 25 mcg daily. 11. Xopenex 2 puffs inhaled four times a day as needed. 12. Ativan 0.5 mg p.o. b.i.d. as needed. 13. Lasix 40 mg daily. 14. Magnesium 250 mg p.o. daily. 15. Diltiazem CD 120 mg p.o. daily. 16. DuoNeb 1 neb inhaler every 4 hours as needed. 17. Vitamin D3 50,000 units p.o. monthly. 18. Toprol-XL 25 mg daily. 19. Spiriva 1 capsule inhaled daily. 20. Symbicort 2 puffs inhaled b.i.d. 21. Warfarin 4 mg p.o. daily. 22. Simethicone 80 to 160 mg p.o. after meals and at bedtime as needed. 23. Actonel 35 mg p.o. on Sundays. 24. Colace 100 mg p.o. q.a.m. 25. [place] Ultra Strength topical analgesic 5% topically at bedtime. 26. Calcium 500 mg daily. 27. Spironolactone 25 mg daily. 28. Aspirin 81 mg daily. 29. Artificial tears 1 drop both eyes every 2 hours as needed. ALLERGIES TO MEDICATIONS: Include CIPRO, CODEINE, FENTANYL, PENICILLIN. FAMILY HISTORY: Mother had a history of brain tumor and CAD. Father had a history of CHF. SOCIAL HISTORY: The patient is a former smoker. She does not drink alcohol. She resides at [facility] currently. Surrogate decision maker is her daughter , Masha. REVIEW OF SYSTEMS: There is no documented fever. She denied having any significant weight changes. There was no double vision. There was no ear discharge. There was no rhinorrhea. No sore throat. No thyroid enlargement. Denies having any chest pain currently. There is no orthopnea. No nocturnal dyspnea. There is dyspnea on exertion. There is no abdominal pain. No nausea , no vomiting. No dysuria, no frequency. There was no seizure, no loss of consciousness. No pruritus and no skin ulcerations. Review of 14 systems completed, all others negative. PHYSICAL EXAMINATION GENERAL: At this time, Ms. Saldana is an 86-year-old female patient. She is sitting in the ER stretcher. She does not appear to be in any acute distress. VITAL SIGNS: Reveal blood pressure 113/84 with a pulse of 80, respirations 16, O2 sat 98%, and temperature 98.6. HEENT: Head is atraumatic, normocephalic. Eyes: EOMs are intact. Sclerae anicteric and not pale. Throat: Oral mucosa appears to be moist. No oropharyngeal erythema. NECK: Supple. LUNGS: She had some rhonchi in the right upper lobe. She had no wheezes or rales. HEART: Sounds S1, S2. Regular rate and rhythm. No murmurs, rubs, or gallops. ABDOMEN: Soft, flat, nontender. Bowel sounds present. EXTREMITIES: Pulses were 2+ throughout. She is able to move all 4 extremities with 5/5 strength. NEUROLOGIC: The patient is awake. She is alert, she is oriented x3. Tongue midline. Sheriffs were equal. No gross focal neurological deficits. SKIN: Grossly intact. DIAGNOSTIC STUDIES/LAB DATA: Labs today revealed WBC 7.9, RBC of 3.83, hemoglobin 11.1, hematocrit of 34, platelet count of 345. INR was 4.68, PTT was 40.1, D-dimer was 346. Sodium 136, potassium 3.9, chloride of 94, bicarb 36 , BUN 28, creatinine 1.20, glucose 148, lactate 0.8, calcium 9.0, mag 1.8. Total bili 0.7, AST 22, ALT 30, alk phos 85. CK 19, CK-MB 1.3. Troponin 0.01. CRP of 8.32. BNP of 288. TSH was normal at 1.51. Lipase normal. Urine showed trace leukocyte esterase and present squamous epithelial cells. She had a chest, abdomen, and pelvis CT, which showed, impression: There has been a new development of a cavitary mass on the superior segment of the right lower lobe measuring up to 4.4 cm in size. Multiple smaller nodules are noted throughout the right lung, the appearance is most consistent with neoplasm including primary lung neoplasm versus metastatic disease to the lung, right adrenal nodule, emphysema, mediastinal lymphadenopathy. There is marked biliary dilatation, this is similar to 2007 exam. 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 There was a chest x-ray obtained today, showed persistent air space disease in the right upper lung, improved aeration in right lower lung, recommend followup to resolution. She had an EKG obtained today, which showed atrial fibrillation with the rate of 84. No ST elevation or T-wave inversions were noted. Old medical records were reviewed. ASSESSMENT AND PLAN: Ms. Saldana is an 86-year-old female patient, presenting today with complaints of chest discomfort. On evaluation, she was found to have a cavitary mass. She will be admitted under inpatient status for: 1. Cavitary mass: At this point, it is concerning for the possible infection versus malignancy. I did touch base with Dr. Camacho at this point, would like to hold off on antibiotic therapy. At this point, we will go ahead and check the patient's blood cultures, sputum cultures, try to get a biopsy of this mass to rule out infection versus malignancy, although this is concerning for malignancy. We will wait for the pathology and then possibly get Oncology consult. I suspect the chest pain is probably from the mass, but because of the concern with chest pain, I think minimally we need to cycle her troponin. She did have a stress test done 7 months ago, which was again small area of reversible hypoperfusion of the anterior wall towards the apex concerning for small area of ischemia, so I think we should at least cycle her trops and consider possible echo, but I think the pain could be just from the mass. I will continue to follow her. I did touch base with Radiology, they requested us to touch base with IR in the morning, but I made her n.p.o. just in case her INR does fall below the appropriate therapy with the vitamin K. 2. Coagulopathy: Again, her INR is 4.68. We will hold her Coumadin, give her some vitamin K. 3. Chronic obstructive pulmonary disease: Continue her nebs as prescribed. 4. Chronic pain: It appears to be stable. Continue meds as prescribed. 5. Hypothyroidism: Continue Synthroid. 6. History of congestive heart failure: Does not appear to be in failure, we will continue her meds as prescribed. 7. History of tricuspid regurg and pulmonary hypertension: She can follow with her primary facility specialist. 8. Neuropathy: Continue with pain control. 9. Hypertension: Continue meds as prescribed. 10. History of coronary artery disease: She is on an aspirin and beta amanda , we will continue. 11. DVT prophylaxis. She is high risk. She will be placed on SCDs as we are trying to reverse her Coumadin. Once she falls below 2, we can put her on heparin subcu. 12. Code status. Full code. 13. Fluids, electrolytes, and nutrition. She can have a heart healthy diet. She is n.p.o. after midnight. TIME SPENT: On the admission was approximately 70 minutes, greater than half the time was spent [id number] with the patient obtaining my history and physical; the other half time was spent going over the plan of care with the patient and implementing the plan of care. I did discuss the plan of care with my attending, Dr. Gamez; he is in agreement. DAVID ESTES NP [id number]/CPS #: [id number] MTDD
[2017-03-05] MEDS: oxyCODONE TAB* 5 MG TAB PO PRN ×5 (04:20→21:11)
[2017-03-05 04:59] LABS: Hematocrit 32 % (35-47); Hemoglobin 10.4 g/dl (12.0-16.0); Mean Corpuscular HGB Conc 33 g/dl (31-36); Mean Corpuscular Hemoglobin 29 pg (27-31); Mean Corpuscular Volume 89 fL (80-97); Mean Platelet Volume 7 um3 (7.4-10.4); Red Blood Count 3.56 10^6/ul (4.0-5.4); Red Cell Distribution Width 17 % (10.5-15)
[2017-03-05 05:04] LABS: Add Diff/Slide Review? Slide Review Added; Comments Flag Yes
[2017-03-05 05:20] LABS: BUN/Creatinine Ratio 20.6 (8-20); Calcium 8.5 mg/dL (8.6-10.3); EGFR African American 49.5 (>60); EGFR Non-African American 38.5 (>60); Potassium 3.3 mmol/L (3.5-5.0)
[2017-03-05] MEDS: Levothyroxine TAB* 25 MCG TAB PO SCH (06:18)
[2017-03-05 07:30] LABS: Add Path Review? YES; Eosinophils % 1 % (0-6); Neutrophil % 63 % (38-83); Platelet Morphology Large; RBC Morphology Normal (Normal); Reactive Lymph % 3 % (0-6)
[2017-03-05] MEDS: Tiotropium CAP.INH* CAP.INH/18 MCG INH SCH (08:11)
[2017-03-05] MEDS: Mometasone/Formoter 200/5 MDI INH SCH ×2 (08:12→20:11)
[2017-03-05] MEDS: Omeprazole CAP* 20 MG PO SCH (08:50)
[2017-03-05] MEDS: Pregabalin CAP(*) 25 MG PO SCH ×4 (08:50→21:10)
[2017-03-05] MEDS: Docusate CAP* 100 MG PO SCH (08:50)
[2017-03-05] MEDS: Furosemide TAB* 40 MG PO SCH (08:50)
[2017-03-05] MEDS: Diltiazem CD CAP* 120 MG PO SCH (08:50)
[2017-03-05] MEDS: Metoprolol Succinate XL TAB* 25 MG PO SCH (08:50)
[2017-03-05] MEDS: Spironolactone TAB* 25 MG PO SCH (08:51)
[2017-03-05] MEDS: Aspirin EC Low Dose* 81 MG TAB.EC PO SCH (08:51)
[2017-03-05] MEDS ORDERED: Spiriva Inhaler DEVICE* 1 EACH DEVICE INH ONE (09:00)
[2017-03-05] MEDS ORDERED: predniSONE TAB* 10 MG PO SCH (09:00)
[2017-03-05] MEDS: Polyethylene Glycol 3350* 17 GM PACKET PO SCH ×2 (09:01→10:46)
[2017-03-05] MEDS ORDERED: Phytonadione Oral Solution* 5 MG/25 ML UDC PO ONE (09:09)
[2017-03-05] MEDS: Acetaminophen TAB* 325 MG PO PRN (11:51)
--- NOTE | 2017-03-05 13:07 | CONS ---
CONSULTATION REPORT: DATE OF CONSULTATION: 03/05/17 REQUESTING PROVIDER: David Estes NP CONSULTING SERVICE: Infectious Disease. REASON FOR CONSULTATION: Right lung mass. IMPRESSION: Recent right lower and middle lobe pneumonia (on chest x-ray), had grown E. coli from a sputum at that time, which included fever and productive cough, all of which are resolved with antibiotics, now with right and substernal chest pain. CT scan shows a cavitary mass in the superior segment of the right lower lobe, 4.4 cm. There are some surrounding inflammatory changes and there are smaller nodules throughout the right lung. Radiologist describes it most consistent with neoplasm. Infection is still a consideration including a necrotic cavity from recent lung infection, which was felt initially to be more like a pneumonia, may be was an abscess, though given resolution of inflammatory markers like a cough or other systemic symptoms, that scenario seems less likely. RECOMMENDATIONS: Continue holding antibiotics and will await the findings of the IR-guided lung biopsy, which has previously been ordered and pending resolution of her supratherapeutic INR. HISTORY OF PRESENT ILLNESS: This is an 86-year-old woman with a recent admission with cough, fever, sputum production in early February. Chest x-ray at that time showed right middle lobe infiltrate. Sputum sample grew E. coli. She had a course of antibiotics with resolution of her fever, improvement of inflammatory markers from a CRP of 245 down to 30 at the time of discharge. She felt much better. She has been at [facility] for rehab. She developed substernal chest pain and right- sided chest pain. She came to the ER yesterday. Her CRP is 8. She had a CT scan with findings as above, which also included an adrenal nodule. I discussed the case with David Estes NP, last night, recommended holding on antibiotics, which was done and biopsy which was set up, but is on hold given a supratherapeutic INR. Her chest pain is better today. She has had no fevers, chills or sweats. It is not entirely gone, however. She has occasional cough, which is nonproductive. She has been eating okay. She has no prosthetic material present. PAST MEDICAL HISTORY: 1. Atrial fibrillation, on Coumadin. 2. COPD. 3. Chronic leg pain. 4. Hypothyroidism. 5. Diastolic heart failure. 6. Tricuspid regurgitation. 7. Hyperlipidemia. 8. Peripheral neuropathy. 9. Hypertension. 10. Coronary artery disease. 11. Status post laparoscopic cholecystectomy. 12. Status post thyroidectomy. 13. Status post gastrectomy. 14. Status post carpal tunnel release. MEDICATIONS: 1. Tylenol. 2. Albuterol. 3. Aspirin. 4. Diltiazem. 5. Docusate. 6. Levothyroxine. 7. Levalbuterol inhaler. 8. Linaclotide. 9. Lidocaine patch. 10. Omeprazole. 11. Oxymorphone. 12. Vitamin K. 13. Pregabalin. 14. Risedronate. 15. Spiriva inhaler. 16. Spironolactone. 17. Prednisone 5 mg a day. SOCIAL HISTORY: She has been at [facility] in the last 2 to 3 weeks for rehabilitation. She has no travel. She has had no known tuberculosis contacts and has not lived abroad. FAMILY HISTORY: No recurrent infections or tuberculosis. REVIEW OF SYSTEMS: All negative full review of systems except as noted above. PHYSICAL EXAM: Vital Signs: Temperature is 37, heart rate 70, respiratory rate 17, blood pressure 113/51, and oxygen saturation 98% on 4 L. In general, she is awake, not in distress. Neurological: She is oriented x3. Follows all commands. HEENT: There is no conjunctival hemorrhage. Oropharynx is without lesions. Moves all extremities. Neck is supple without nuchal rigidity. Lymph Nodes: There is no inguinal or left axillary node. There is a subcentimeter right axillary node, which is mobile and nontender. There is no inguinal lymphadenopathy. Heart: Regular rate and rhythm without murmurs, rubs , or gallops. Lungs: Clear to auscultation bilaterally. Abdomen: Soft, nontender, nondistended. There are bowel sounds present. Skin: There is no rash or splinter hemorrhages. Musculoskeletal: There is no spine tenderness to palpation. LABORATORY DATA: Creatinine 1.3, white blood cell count 6, hemoglobin 10, platelets 312. Please see impressions and recommendations outlined above, which I have discussed with Joey Gonzales. Thank you for asking me to see Ms. Saldana in consultation. [id number]/[facility] #: [id number] API HEALTHCAREHarpreet
--- NOTE | 2017-03-05 17:29 | PN ---
Subjective Date of Service: 03/05/17 Interval History: This is an 86 yo female with a recent hospitalization for EColi PNA who returned to the ED yesterday with c/o R sided CP. CT demonstrated a RUL cavitary lesion with associated additional nodular lesions. She had plans for CT guided biopsy today, but this has been delayed due to her supratherapeutic INR. Today, patient reports no recurrence of her CP. She is struggling with bilateral leg pain. This is a chronic complaint for her which she uses Opana, oxycodone and Lyrica at home. She states that her pain is worse than usual. Objective Active Medications: Acetaminophen (Tylenol Tab*) 650 mg PO Q4H PRN PRN Reason: FEVER/PAIN Last Admin: 03/05/17 11:51 Dose: 650 mg Albuterol/Ipratropium (Duoneb (Albuterol 2.5 Mg/Ipratropium 0.5 Mg)) 1 neb INH Q4H PRN PRN Reason: wheezing Aspirin (Aspirin Ec Low Dose*) 81 mg PO QAM COUNT INCLUDES THE [facility] Last Admin: 03/05/17 08:51 Dose: 81 mg Diltiazem HCl (Cardizem Cd Cap*) [facility] [place] Last Admin: 03/05/17 08:50 Dose: 120 mg Docusate Sodium (Colace Cap*) 100 mg PO QAM COUNT INCLUDES THE [facility] Last Admin: 03/05/17 08:50 Dose: 100 mg Furosemide (Lasix Tab*) 40 mg PO QAM COUNT INCLUDES THE [facility] Last Admin: 03/05/17 08:50 Dose: 40 mg Levalbuterol HCl (Xopenex Hfa Inhaler*) 2 puff INH QID PRN PRN Reason: SOB/WHEEZING Levothyroxine Sodium (Synthroid Tab*) 25 mcg PO 0600 COUNT INCLUDES THE [facility] Last Admin: 03/05/17 06:18 Dose: 25 mcg Lidocaine (Lidoderm 5% Patch*) 1 patch TRANSDERM BEDTIME COUNT INCLUDES THE [facility] Lorazepam (Ativan Tab(*)) 0.5 mg PO BID PRN PRN Reason: ANXIETY Metoprolol Succinate (Toprol Xl Tab*) 25 mg PO QAM COUNT INCLUDES THE [facility] Last Admin: 03/05/17 08:50 Dose: 25 mg Mometasone Furoate/Formoterol Fumar (Dulera 200/5 Mdi*) 2 puff INH BID COUNT INCLUDES THE [facility] PRN Reason: Protocol Last Admin: 03/05/17 08:12 Dose: 2 puff Omeprazole (Prilosec Cap*) 20 mg PO DAILY COUNT INCLUDES THE [facility] Last Admin: 03/05/17 08:50 Dose: 20 mg Ondansetron HCl (Zofran Inj*) 4 mg IV Q6H PRN PRN Reason: NAUSEA Oxycodone HCl (Roxycodone Tab*) 15 mg PO Q4H PRN PRN Reason: PAIN Last Admin: 03/05/17 17:07 Dose: 15 mg Oxymorphone HCl (Opana Er (Nf)) 15 mg PO Q12H COUNT INCLUDES THE [facility] Last Admin: 03/05/17 08:49 Dose: 15 mg Pharmacy Profile Note (Lidocaine Patch Remove*) 1 note PATCH OFF 0900 COUNT INCLUDES THE [facility] Polyethylene Glycol/Electrolytes (Miralax*) 17 gm PO DAILY COUNT INCLUDES THE [facility] Last Admin: 03/05/17 10:46 Dose: 17 gm Polyvinyl Alcohol (Polyvinyl Alcohol 1.4% Opth*) 1 drop BOTH EYES Q2H PRN PRN Reason: DRY EYE Prednisone (Deltasone Tab*) 5 mg PO DAILY COUNT INCLUDES THE [facility] Stop: 03/09/17 10:00 Pregabalin (Lyrica Cap(*)) 25 mg PO QID COUNT INCLUDES THE [facility] Last Admin: 03/05/17 17:07 Dose: 25 mg Spironolactone (Aldactone Tab*) 25 mg PO QAM COUNT INCLUDES THE [facility] Last Admin: 03/05/17 08:51 Dose: 25 mg Tiotropium [place] (Spiriva Cap.Inh*) 1 cap INH QAM COUNT INCLUDES THE [facility] Last Admin: 03/05/17 08:11 Dose: 1 cap Vital Signs: Temp Pulse Resp BP Pulse Ox 98.1 F 63 16 97/48 99 03/05/17 15:28 03/05/17 15:28 03/05/17 17:07 03/05/17 15:28 03/05/17 15:28 Oxygen Devices in Use Now: None Appearance: Elderly female who appears chronically ill but is in NAD Respiratory: Symmetrical Chest Expansion and Respiratory Effort, Clear to Auscultation Cardiovascular: NL Sounds; No Murmurs; No JVD, RRR Abdominal: NL Sounds; No Tenderness; No Distention Extremities: No Edema Skin: No Rash or Ulcers Neurological: Alert and Oriented x 3 Result Diagrams: 03/05/17 04:44 03/05/17 04:44 Additional Lab and Data: . Microbiology and Other Data: Microbiology 03/05/17 06:45 Nasal Screen MRSA (PCR)(JOSHUA) - Final Nasal Mrsa Negative Assess/Plan/Problems-Billing Assessment: This is an 86 yo female with afib, COPD, chronic pain, hypothyroidism, chronic diastolic HF, thrombocytopenia, peripheral neuropathy, HTN and CAD with recent treatment for EColi PNA who presented with c/o CP with noted cavitary lesion on CT chest. - Patient Problems (1) Chest pain Comment: Now asx Right sided No ACS Likely due to lung mass (2) Cavitary lesion of lung Comment: Likely malignancy but possibly infectious Pending bx when INR <2, likely tomorrow (3) Supratherapeutic INR Comment: Patient has received 2 doses of oral vit K INR 2.2 on last check, anticipate she will be ready for bx in am (4) Peripheral neuropathy Comment: Some greater pain than usual Continue Lyrica, oxycodone and Opana (5) Chronic diastolic (congestive) heart failure Comment: No acute exacerbation (6) Afib Comment: Rate controlled Anticoagulated with Coumadin (7) Full code status (8) Diastolic CHF Comment: No acute exacerbation (9) Hypothyroidism Comment: TSH 1.5 (10) COPD (chronic obstructive pulmonary disease) Comment: No acute exacerbation Cont home inhaled medications (11) DVT prophylaxis Comment: Warfarin. (12) Full code status Status and Disposition: Inpatient. Pending lung bx
--- NOTE | 2017-03-05 18:07 | RAD ---
INDICATION: Biopsy planning for right posterior chest wall mass COMPARISON: CT of the chest from the same day TECHNIQUE: Real time ultrasound images of the right posterior chest wall were acquired with noland scale and Doppler color flow imaging. FINDINGS: Corresponding to the CT images from the same date, there is a 3.6 x 3.2 x 2.8 cm solid mass abutting the posterior midline chest wall. Sonographic images indicate it is minimal to percutaneous biopsy. A small right pleural effusion is noted. IMPRESSION: Posterior chest wall mass amenable to ultrasound-guided biopsy.
[2017-03-05] MEDS: Lidocaine PATCH 5%* 1 PATCH TRANSDERM SCH (21:12)
[2017-03-06] MEDS: oxyCODONE TAB* 5 MG TAB PO PRN ×5 (03:30→20:50)
[2017-03-06] MEDS: Levothyroxine TAB* 25 MCG TAB PO SCH (05:26)
[2017-03-06 05:34] LABS: Calcium 8.8 mg/dL (8.6-10.3); EGFR African American 52.3 (>60); EGFR Non-African American 40.6 (>60); Potassium 3.5 mmol/L (3.5-5.0)
[2017-03-06] MEDS: Omeprazole CAP* 20 MG PO SCH (07:56)
[2017-03-06] MEDS: Docusate CAP* 100 MG PO SCH (07:56)
[2017-03-06] MEDS: Diltiazem CD CAP* 120 MG PO SCH (07:57)
[2017-03-06] MEDS: Pregabalin CAP(*) 25 MG PO SCH ×4 (07:57→20:30)
[2017-03-06] MEDS: Aspirin EC Low Dose* 81 MG TAB.EC PO SCH (07:57)
[2017-03-06] MEDS: Spironolactone TAB* 25 MG PO SCH (07:57)
[2017-03-06] MEDS: Metoprolol Succinate XL TAB* 25 MG PO SCH (07:57)
[2017-03-06] MEDS: Furosemide TAB* 40 MG PO SCH (07:57)
[2017-03-06] MEDS: Lidocaine Patch REMOVE* 1 NOTE MISC PATCH OFF SCH (07:58)
[2017-03-06] MEDS: Polyethylene Glycol 3350* 17 GM PACKET PO SCH (08:01)
[2017-03-06] MEDS: Tiotropium CAP.INH* CAP.INH/18 MCG INH SCH (08:06)
[2017-03-06] MEDS: predniSONE TAB* 5 MG PO SCH (08:06)
[2017-03-06] MEDS: Mometasone/Formoter 200/5 MDI INH SCH ×2 (08:06→20:28)
[2017-03-06] MEDS: Oxymorphone ER (NF) 5 MG TAB PO SCH ×2 (09:45→20:32)
--- NOTE | 2017-03-06 14:09 | RAD ---
CPT II Codes: 6100F INDICATION: Posterior right upper lobe mass COMPARISON: CT chest March 04, 2017 The benefits and risks of procedure explained to the patient and the patient signed informed consent. Multiple images of the right hemithorax were obtained. The medial posterior aspect right upper lobe mass in question was identified and a percutaneous tract was determined. A time out was performed before beginning the procedure. The patient was prepped and draped in the usual sterile fashion. The skin and tissue overlying the mass were anesthetized with 1% lidocaine. Percutaneously, a specimen was obtained with a 21 gauge needle. This yielded only serous fluid. According to the same technique a total of 4 additional needle aspirations were acquired and provided to the attending cytopathologist. The post procedure ultrasound demonstrates no obvious pneumothorax or hematoma. The patient tolerated procedure well without incident. IMPRESSION: 1. Ultrasound-guided fine-needle aspiration of midline posterior aspect right upper lobe lung mass. 2. The patient will undergo post biopsy chest x-ray to be reported separately.
--- NOTE | 2017-03-06 14:42 | PN ---
Subjective Date of Service: 03/06/17 Interval History: This is an 86 yo female with a recent hospitalization for EColi PNA who returned to the ED yesterday with c/o R sided CP. CT demonstrated a RUL cavitary lesion with associated additional nodular lesions. Patient seen and examined at bedside, prior to leaving for CT guided biopsy. Denies fever/chills, CP, SOB. Reports pain in her legs, left > right - she reports this is chronic. She just received pain medication Family History: Unchanged from Admission Social History: Unchanged from Admission Past Medical History: Unchanged from Admission Objective Active Medications: Acetaminophen (Tylenol Tab*) 650 mg PO Q4H PRN PRN Reason: FEVER/PAIN Last Admin: 03/05/17 11:51 Dose: 650 mg Albuterol/Ipratropium (Duoneb (Albuterol 2.5 Mg/Ipratropium 0.5 Mg)) 1 neb INH Q4H PRN PRN Reason: wheezing Aspirin (Aspirin Ec Low Dose*) 81 mg PO QAM [facility] Last Admin: 03/06/17 07:57 Dose: 81 mg Diltiazem HCl (Cardizem Cd Cap*) [facility] [place] Admin: 03/06/17 07:57 Dose: 120 mg Docusate Sodium (Colace Cap*) [facility] [place] Admin: 03/06/17 07:56 Dose: 100 mg Furosemide (Lasix Tab*) 40 mg PO QAM [facility] Last Admin: 03/06/17 07:57 Dose: 40 mg Levalbuterol HCl (Xopenex Hfa Inhaler*) 2 puff INH QID PRN PRN Reason: SOB/WHEEZING Levothyroxine Sodium (Synthroid Tab*) 25 mcg PO 0600 [facility] Last Admin: 03/06/17 05:26 Dose: 25 mcg Lidocaine (Lidoderm 5% Patch*) 1 patch TRANSDERM BEDTIME [facility] Last Admin: 03/05/17 21:12 Dose: 1 patch Lorazepam (Ativan Tab(*)) 0.5 mg PO BID PRN PRN Reason: ANXIETY Metoprolol Succinate (Toprol Xl Tab*) 25 mg PO QAM [facility] Last Admin: 03/06/17 07:57 Dose: 25 mg Mometasone Furoate/Formoterol Fumar (Dulera 200/5 Mdi*) 2 puff INH BID [facility] PRN Reason: Protocol Last Admin: 03/06/17 08:06 Dose: 2 puff Omeprazole (Prilosec Cap*) 20 mg PO DAILY [facility] Last Admin: 03/06/17 07:56 Dose: 20 mg Ondansetron HCl (Zofran Inj*) 4 mg IV Q6H PRN PRN Reason: NAUSEA Oxycodone HCl (Roxycodone Tab*) 15 mg PO Q4H PRN PRN Reason: PAIN Last Admin: 03/06/17 12:01 Dose: 15 mg Oxymorphone HCl (Opana Er (Nf)) 15 mg PO Q12H [facility] Last Admin: 03/06/17 09:45 Dose: 15 mg Pharmacy Profile Note (Lidocaine Patch Remove*) 1 note PATCH OFF 0900 [facility] Last Admin: 03/06/17 07:58 Dose: 1 note Polyethylene Glycol/Electrolytes (Miralax*) 17 gm PO DAILY [facility] Last Admin: 03/06/17 08:01 Dose: Not Given Polyvinyl Alcohol (Polyvinyl Alcohol 1.4% Opth*) 1 drop BOTH EYES Q2H PRN PRN Reason: DRY EYE Prednisone (Deltasone Tab*) 5 mg PO DAILY [facility] Stop: 03/09/17 10:00 Last Admin: 03/06/17 08:06 Dose: 5 mg Pregabalin (Lyrica Cap(*)) 25 mg PO QID [facility] Last Admin: 03/06/17 12:01 Dose: 25 mg Spironolactone (Aldactone Tab*) 25 mg PO QAM [facility] Last Admin: 03/06/17 07:57 Dose: 25 mg Tiotropium [place] (Spiriva Cap.Inh*) 1 cap INH QAM [facility] Last Admin: 03/06/17 08:06 Dose: 1 cap Vital Signs 03/05/17 03/05/17 03/05/17 14:47 15:28 17:07 Temperature 98.1 F Pulse Rate 63 Respiratory 18 12 16 Rate Blood Pressure 97/48 (mmHg) O2 Sat by Pulse 99 Oximetry 03/05/17 03/05/17 03/05/17 19:07 19:19 20:00 Temperature 98.2 F Pulse Rate 70 Respiratory 20 12 20 Rate Blood Pressure 93/52 (mmHg) O2 Sat by Pulse 99 Oximetry 03/05/17 03/05/17 03/05/17 20:07 20:08 21:10 Temperature Pulse Rate 90 Respiratory 16 20 Rate Blood Pressure (mmHg) O2 Sat by Pulse 100 100 Oximetry 03/05/17 03/05/17 03/05/17 21:11 23:11 23:20 Temperature 98.2 F Pulse Rate 77 Respiratory 20 15 16 Rate Blood Pressure 115/56 (mmHg) O2 Sat by Pulse 100 Oximetry 03/06/17 03/06/17 03/06/17 03:24 03:30 05:30 Temperature 97.8 F Pulse Rate 84 Respiratory 16 20 18 Rate Blood Pressure 127/60 (mmHg) O2 Sat by Pulse 100 Oximetry 03/06/17 03/06/17 03/06/17 07:12 07:57 08:00 Temperature 97.7 F Pulse Rate 63 Respiratory 18 16 16 Rate Blood Pressure 118/52 (mmHg) O2 Sat by Pulse 100 Oximetry 03/06/17 03/06/17 03/06/17 08:08 09:45 09:50 Temperature Pulse Rate 75 Respiratory 14 18 18 Rate Blood Pressure (mmHg) O2 Sat by Pulse 98 Oximetry 03/06/17 03/06/17 03/06/17 11:07 11:45 12:01 Temperature 98.0 F Pulse Rate 59 Respiratory 18 18 16 Rate Blood Pressure 99/45 (mmHg) O2 Sat by Pulse 99 Oximetry 03/06/17 03/06/17 14:01 14:29 Temperature 97.9 F Pulse Rate 63 Respiratory 16 16 Rate Blood Pressure 125/60 (mmHg) O2 Sat by Pulse 100 Oximetry Oxygen Devices in Use Now: None Appearance: Elderly female, in wheelchair, in NAD Eyes: No Scleral Icterus Ears/Nose/Mouth/Throat: Mucous Membranes Moist Neck: NL Appearance and Movements; NL JVP Respiratory: Symmetrical Chest Expansion and Respiratory Effort, Clear to Auscultation Cardiovascular: NL Sounds; No Murmurs; No JVD, RRR Abdominal: NL Sounds; No Tenderness; No Distention Neurological: Alert and Oriented x 3 Lines/Tubes/Other Access: Clean, Dry and Intact Peripheral IV Nutrition: Taking PO's Result Diagrams: 03/05/17 04:44 03/06/17 05:00 Additional Lab and Data: . Microbiology and Other Data: Microbiology 03/05/17 06:45 Nasal Screen MRSA (PCR)(JOSHUA) - Final Nasal Mrsa Negative Assess/Plan/Problems-Billing Assessment: This is an 86 yo female with afib, COPD, chronic pain, hypothyroidism, chronic diastolic HF, thrombocytopenia, peripheral neuropathy, HTN and CAD with recent treatment for EColi PNA who presented with c/o CP with noted cavitary lesion on CT chest. - Patient Problems (1) Chest pain Code(s): R07.9 - CHEST PAIN, UNSPECIFIED Comment: Now asx Right sided No ACS Likely due to lung mass (2) Cavitary lesion of lung Code(s): J98.4 - OTHER DISORDERS OF LUNG Comment: Likely malignancy but possibly infectious Pending bx, taken today (3) Peripheral neuropathy Code(s): G62.9 - POLYNEUROPATHY, UNSPECIFIED Comment: Some greater pain than usual Continue Lyrica, oxycodone, and Opana (4) Chronic diastolic (congestive) heart failure Code(s): I50.32 - CHRONIC DIASTOLIC (CONGESTIVE) HEART FAILURE Comment: No acute exacerbation (5) Afib Code(s): I48.91 - UNSPECIFIED ATRIAL FIBRILLATION Comment: Rate controlled Anticoagulated with Coumadin (6) Hypothyroidism Code(s): E03.9 - HYPOTHYROIDISM, UNSPECIFIED Comment: TSH 1.5 Continue current levothyroxine dose (7) COPD (chronic obstructive pulmonary disease) Code(s): J44.9 - CHRONIC OBSTRUCTIVE PULMONARY DISEASE, UNSPECIFIED Comment: No acute exacerbation Cont home inhaled medications (8) DVT prophylaxis Comment: Warfarin (9) Full code status Code(s): Z78.9 - OTHER SPECIFIED HEALTH STATUS Status and Disposition: Inpatient. Pending lung bx
--- NOTE | 2017-03-06 15:18 | RAD ---
INDICATION: Status post biopsy of right posterior lung mass COMPARISON: Preoperative chest x-ray dated March 04, 2017 TECHNIQUE: Inspiration and expiration views of the chest were obtained in the AP projection following lung biopsy. FINDINGS: There is no large pneumothorax. Density is seen overlying the medial right upper lung similar in appearance to the previous chest x-ray. The lungs are otherwise adequately aerated. There is no mediastinal widening. A small degree of costophrenic angle blunting on the right is similar to the previous chest x-ray. IMPRESSION: NO RADIOGRAPHICALLY APPARENT ACUTE ABNORMALITY STATUS POST RIGHT LUNG BIOPSY.
[2017-03-06] MEDS: Lidocaine PATCH 5%* 1 PATCH TRANSDERM SCH (20:29)
[2017-03-07] MEDS: oxyCODONE TAB* 5 MG TAB PO PRN ×4 (04:13→17:43)
[2017-03-07] MEDS: Levothyroxine TAB* 25 MCG TAB PO SCH (05:46)
[2017-03-07] MEDS: Acetaminophen TAB* 325 MG PO PRN (05:47)
[2017-03-07 06:18] LABS: Hematocrit 35 % (35-47); Hemoglobin 11.3 g/dl (12.0-16.0); Mean Corpuscular HGB Conc 32 g/dl (31-36); Mean Corpuscular Hemoglobin 29 pg (27-31); Mean Corpuscular Volume 91 fL (80-97); Mean Platelet Volume 8 um3 (7.4-10.4); Red Blood Count 3.86 10^6/ul (4.0-5.4); Red Cell Distribution Width 17 % (10.5-15); White Blood Count 5.5 10^3/ul (3.5-10.8)
[2017-03-07] MEDS: Mometasone/Formoter 200/5 MDI INH SCH ×2 (08:10→20:09)
[2017-03-07] MEDS: Tiotropium CAP.INH* CAP.INH/18 MCG INH SCH (08:11)
[2017-03-07] MEDS: Spironolactone TAB* 25 MG PO SCH (08:28)
[2017-03-07] MEDS: Diltiazem CD CAP* 120 MG PO SCH (08:28)
[2017-03-07] MEDS: Furosemide TAB* 40 MG PO SCH (08:28)
[2017-03-07] MEDS: Pregabalin CAP(*) 25 MG PO SCH ×4 (08:28→21:40)
[2017-03-07] MEDS: Aspirin EC Low Dose* 81 MG TAB.EC PO SCH (08:28)
[2017-03-07] MEDS: Docusate CAP* 100 MG PO SCH (08:28)
[2017-03-07] MEDS: predniSONE TAB* 5 MG PO SCH (08:28)
[2017-03-07] MEDS: Omeprazole CAP* 20 MG PO SCH (08:28)
[2017-03-07] MEDS: Metoprolol Succinate XL TAB* 25 MG PO SCH (08:28)
[2017-03-07] MEDS: Polyethylene Glycol 3350* 17 GM PACKET PO SCH (08:29)
[2017-03-07] MEDS: Lidocaine Patch REMOVE* 1 NOTE MISC PATCH OFF SCH (08:29)
--- NOTE | 2017-03-07 10:16 | PN ---
Subjective Date of Service: 03/07/17 Interval History: Patient seen and examined at bedside. Reported some passing CP but mostly gone Reports increasing bilateral leg pain, SCDs help but pain feels worse than home. Denies fever/chills, SOB Family History: Unchanged from Admission Social History: Unchanged from Admission Past Medical History: Unchanged from Admission Objective Active Medications: Acetaminophen (Tylenol Tab*) 650 mg PO Q4H PRN PRN Reason: FEVER/PAIN Last Admin: 03/07/17 05:47 Dose: 650 mg Albuterol/Ipratropium (Duoneb (Albuterol 2.5 Mg/Ipratropium 0.5 Mg)) 1 neb INH Q4H PRN PRN Reason: wheezing Aspirin (Aspirin Ec Low Dose*) 81 mg PO QAM [facility] Last Admin: 03/07/17 08:28 Dose: 81 mg Diltiazem HCl (Cardizem Cd Cap*) 120 mg PO QAM [facility] Last Admin: 03/07/17 08:28 Dose: 120 mg Docusate Sodium (Colace Cap*) [facility] [place] Last Admin: 03/07/17 08:28 Dose: 100 mg Furosemide (Lasix Tab*) 40 mg PO QAM [facility] Last Admin: 03/07/17 08:28 Dose: 40 mg Levalbuterol HCl (Xopenex Hfa Inhaler*) 2 puff INH QID PRN PRN Reason: SOB/WHEEZING Levothyroxine Sodium (Synthroid Tab*) 25 mcg PO 0600 [facility] Last Admin: 03/07/17 05:46 Dose: 25 mcg Lidocaine (Lidoderm 5% Patch*) 1 patch TRANSDERM BEDTIME [facility] Last Admin: 03/06/17 20:29 Dose: 1 patch Lorazepam (Ativan Tab(*)) 0.5 mg PO BID PRN PRN Reason: ANXIETY Metoprolol Succinate (Toprol Xl Tab*) 25 mg PO QAM [facility] Last Admin: 03/07/17 08:28 Dose: 25 mg Mometasone Furoate/Formoterol Fumar (Dulera 200/5 Mdi*) 2 puff INH BID [facility] PRN Reason: Protocol Last Admin: 03/07/17 08:10 Dose: 2 puff Omeprazole (Prilosec Cap*) 20 mg PO DAILY [facility] Last Admin: 03/07/17 08:28 Dose: 20 mg Ondansetron HCl (Zofran Inj*) 4 mg IV Q6H PRN PRN Reason: NAUSEA Oxycodone HCl (Roxycodone Tab*) 15 mg PO Q4H PRN PRN Reason: PAIN Last Admin: 03/07/17 08:28 Dose: 15 mg Oxymorphone HCl (Opana Er (Nf)) 15 mg PO Q12H [facility] Last Admin: 03/06/17 20:32 Dose: 15 mg Pharmacy Profile Note (Lidocaine Patch Remove*) 1 note PATCH OFF 0900 [facility] Last Admin: 03/07/17 08:29 Dose: 1 note Polyethylene Glycol/Electrolytes (Miralax*) 17 gm PO DAILY [facility] Last Admin: 03/07/17 08:29 Dose: 17 gm Polyvinyl Alcohol (Polyvinyl Alcohol 1.4% Opth*) 1 drop BOTH EYES Q2H PRN PRN Reason: DRY EYE Prednisone (Deltasone Tab*) 5 mg PO DAILY [facility] Stop: 03/09/17 10:00 Last Admin: 03/07/17 08:28 Dose: 5 mg Pregabalin (Lyrica Cap(*)) 25 mg PO QID [facility] Last Admin: 03/07/17 08:28 Dose: 25 mg Spironolactone (Aldactone Tab*) 25 mg PO QAM [facility] Last Admin: 03/07/17 08:28 Dose: 25 mg Tiotropium [place] (Spiriva Cap.Inh*) 1 cap INH QAM [facility] Last Admin: 03/07/17 08:11 Dose: 1 cap Vital Signs 03/06/17 03/06/17 03/06/17 11:07 11:45 12:01 Temperature 98.0 F Pulse Rate 59 Respiratory 18 18 16 Rate Blood Pressure 99/45 (mmHg) O2 Sat by Pulse 99 Oximetry 03/06/17 03/06/17 03/06/17 14:01 14:29 15:37 Temperature 97.9 F 98.5 F Pulse Rate 63 68 Respiratory 16 16 10 Rate Blood Pressure 125/60 118/52 (mmHg) O2 Sat by Pulse 100 98 Oximetry 03/06/17 03/06/17 03/06/17 16:17 16:18 18:17 Temperature Pulse Rate Respiratory 16 16 16 Rate Blood Pressure (mmHg) O2 Sat by Pulse Oximetry 03/06/17 03/06/17 03/06/17 18:18 19:26 20:00 Temperature 98.4 F Pulse Rate 65 Respiratory 16 10 17 Rate Blood Pressure 114/55 (mmHg) O2 Sat by Pulse 99 Oximetry 03/06/17 03/06/17 03/06/17 20:30 20:32 20:50 Temperature Pulse Rate Respiratory 17 17 17 Rate Blood Pressure (mmHg) O2 Sat by Pulse 99 Oximetry 03/06/17 03/06/17 03/06/17 22:30 22:32 22:50 Temperature Pulse Rate Respiratory 16 16 16 Rate Blood Pressure (mmHg) O2 Sat by Pulse Oximetry 03/07/17 03/07/17 03/07/17 00:14 04:13 07:54 Temperature 97.6 F 97.5 F 97.7 F Pulse Rate 59 72 51 Respiratory 16 16 18 Rate Blood Pressure 126/55 131/63 104/56 (mmHg) O2 Sat by Pulse 100 100 100 Oximetry 03/07/17 03/07/17 08:13 08:28 Temperature Pulse Rate Respiratory 14 Rate Blood Pressure (mmHg) O2 Sat by Pulse 98 Oximetry Oxygen Devices in Use Now: None Appearance: Elderly female, lying in bed, in NAD Eyes: No Scleral Icterus Ears/Nose/Mouth/Throat: Mucous Membranes Moist Neck: NL Appearance and Movements; NL JVP Respiratory: Symmetrical Chest Expansion and Respiratory Effort, Clear to Auscultation Cardiovascular: NL Sounds; No Murmurs; No JVD, RRR Abdominal: NL Sounds; No Tenderness; No Distention Extremities: No Edema, No Clubbing, Cyanosis Neurological: Alert and Oriented x 3 Lines/Tubes/Other Access: Clean, Dry and Intact Peripheral IV Nutrition: Taking PO's Result Diagrams: 03/07/17 04:58 03/06/17 05:00 Additional Lab and Data: . Microbiology and Other Data: Microbiology 03/05/17 06:45 Nasal Screen MRSA (PCR)(JOSHUA) - Final Nasal Mrsa Negative Assess/Plan/Problems-Billing Assessment: This is an 86 yo female with afib, COPD, chronic pain, hypothyroidism, chronic diastolic HF, thrombocytopenia, peripheral neuropathy, HTN and CAD with recent treatment for EColi PNA who presented with c/o CP with noted cavitary lesion on CT chest. - Patient Problems (1) Chest pain Code(s): R07.9 - CHEST PAIN, UNSPECIFIED Comment: Mostly asymptomatic, sharp pain earlier this morning Right sided No ACS, CRP not significantly elevated Likely due to lung mass, awaiting pathology (2) Cavitary lesion of lung Code(s): J98.4 - OTHER DISORDERS OF LUNG Comment: Likely malignancy but possibly infectious Pending pathology, may need to repeat if tissue sample insufficient (3) Peripheral neuropathy Code(s): G62.9 - POLYNEUROPATHY, UNSPECIFIED Comment: Some greater pain than usual Continue Lyrica, oxycodone, and Opana Will increase Opana to TID Plan to consult pain management on Thursday (4) Chronic diastolic (congestive) heart failure Code(s): I50.32 - CHRONIC DIASTOLIC (CONGESTIVE) HEART FAILURE Comment: No acute exacerbation (5) Afib Code(s): I48.91 - UNSPECIFIED ATRIAL FIBRILLATION Comment: Rate controlled Anticoagulated with Coumadin (6) Hypothyroidism Code(s): E03.9 - HYPOTHYROIDISM, UNSPECIFIED Comment: TSH 1.5 Continue current levothyroxine dose (7) COPD (chronic obstructive pulmonary disease) Code(s): J44.9 - CHRONIC OBSTRUCTIVE PULMONARY DISEASE, UNSPECIFIED Comment: No acute exacerbation Cont home inhaled medications (8) DVT prophylaxis Comment: Warfarin (9) Full code status Code(s): Z78.9 - OTHER SPECIFIED HEALTH STATUS Status and Disposition: Inpatient. Pending lung bx pathology
[2017-03-07] MEDS: Oxymorphone ER (NF) 5 MG TAB PO SCH ×3 (10:26→21:41)
[2017-03-07] MEDS: Artificial Tears* 15 ML BTL BOTH EYES PRN (15:37)
[2017-03-07] MEDS: Enoxaparin(*) 60 MG/0.6 ML SYR SUBCUT SCH (17:12)
[2017-03-07] MEDS: Lidocaine PATCH 5%* 1 PATCH TRANSDERM SCH (21:43)
[2017-03-08] MEDS: oxyCODONE TAB* 5 MG TAB PO PRN ×4 (02:34→19:27)
[2017-03-08] MEDS: LORazepam TAB(*) 0.5 MG PO PRN (02:39)
[2017-03-08] MEDS: Levothyroxine TAB* 25 MCG TAB PO SCH (05:33)
[2017-03-08] MEDS: Enoxaparin(*) 60 MG/0.6 ML SYR SUBCUT SCH ×2 (05:34→17:16)
[2017-03-08] MEDS: Oxymorphone ER (NF) 5 MG TAB PO SCH ×3 (07:10→22:22)
[2017-03-08] MEDS: Mometasone/Formoter 200/5 MDI INH SCH ×2 (08:11→20:38)
[2017-03-08] MEDS: Tiotropium CAP.INH* CAP.INH/18 MCG INH SCH (08:12)
[2017-03-08] MEDS ORDERED: RISEDRONATE 35 MG PO SCH (09:00)
[2017-03-08] MEDS: predniSONE TAB* 5 MG PO SCH (09:39)
[2017-03-08] MEDS: Acetaminophen TAB* 325 MG PO PRN ×2 (09:39→13:26)
[2017-03-08] MEDS: Docusate CAP* 100 MG PO SCH (09:40)
[2017-03-08] MEDS: Aspirin EC Low Dose* 81 MG TAB.EC PO SCH (09:41)
[2017-03-08] MEDS: Omeprazole CAP* 20 MG PO SCH (09:41)
[2017-03-08] MEDS: Furosemide TAB* 40 MG PO SCH (09:42)
[2017-03-08] MEDS: Spironolactone TAB* 25 MG PO SCH (09:43)
[2017-03-08] MEDS: Pregabalin CAP(*) 25 MG PO SCH ×4 (09:44→22:34)
[2017-03-08] MEDS: Polyethylene Glycol 3350* 17 GM PACKET PO SCH (09:48)
[2017-03-08] MEDS: Lidocaine Patch REMOVE* 1 NOTE MISC PATCH OFF SCH (09:54)
--- NOTE | 2017-03-08 10:18 | PN ---
Subjective Date of Service: 03/08/17 Interval History: Patient seen and examined at bedside. Denies chest pain overnight and this morning, denies SOB. Reports some mild improvement in leg pain with increase of Opana. Discussed having pain management see her prior to discharge, due to increase in medication. Patient mildly hypotensive (asymptomatic) this AM, continue to monitor. Family History: Unchanged from Admission Social History: Unchanged from Admission Past Medical History: Unchanged from Admission Objective Active Medications: Acetaminophen (Tylenol Tab*) 650 mg PO Q4H PRN PRN Reason: FEVER/PAIN Last Admin: 03/08/17 09:39 Dose: 650 mg Albuterol/Ipratropium (Duoneb (Albuterol 2.5 Mg/Ipratropium 0.5 Mg)) 1 neb INH Q4H PRN PRN Reason: wheezing Aspirin (A[facility]in Ec Low Dose*) [facility] [place] Admin: 03/08/17 09:41 Dose: 81 mg Diltiazem HCl (Cardizem Cd Cap*) 120 [facility] [place] Last Admin: 03/07/17 08:28 Dose: 120 mg Docusate Sodium (Colace Cap*) 100 [facility] [place] Last Admin: 03/08/17 09:40 Dose: 100 mg Enoxaparin Sodium (Lovenox(*)) 60 mg SUBCUT Q12H [facility] Last Admin: 03/08/17 05:34 Dose: 60 mg Furosemide (Lasix Tab*) 40 [facility] [place] Last Admin: 03/08/17 09:42 Dose: 40 mg Levalbuterol HCl (Xopenex Hfa Inhaler*) 2 puff INH QID PRN PRN Reason: SOB/WHEEZING Levothyroxine Sodium (Synthroid Tab*) 25 mcg PO 0600 [facility] Last Admin: 03/08/17 05:33 Dose: 25 mcg Lidocaine (Lidoderm 5% Patch*) 1 patch TRANSDERM BEDTIME [facility] Last Admin: 03/07/17 21:43 Dose: 1 patch Lorazepam (Ativan Tab(*)) 0.5 mg PO BID PRN PRN Reason: ANXIETY Last Admin: 03/08/17 02:39 Dose: 0.5 mg Metoprolol Succinate (Toprol Xl Tab*) 25 [facility] [place] Admin: 03/07/17 08:28 Dose: 25 mg Mometasone Furoate/Formoterol Fumar (Dulera 200/5 Mdi*) 2 puff INH BID [facility] PRN Reason: Protocol Last Admin: 03/08/17 08:11 Dose: 2 puff Omeprazole (Prilosec Cap*) 20 mg PO DAILY [facility] Last Admin: 03/08/17 09:41 Dose: 20 mg Ondansetron HCl (Zofran Inj*) 4 mg IV Q6H PRN PRN Reason: NAUSEA Oxycodone HCl (Roxycodone Tab*) 15 mg PO Q4H PRN PRN Reason: PAIN Last Admin: 03/08/17 09:43 Dose: 15 mg Oxymorphone HCl (Opana Er (Nf)) 15 mg PO Q8H [facility] Last Admin: 03/08/17 07:10 Dose: 15 mg Pharmacy Profile Note (Lidocaine Patch Remove*) 1 note PATCH OFF 0900 [facility] Last Admin: 03/08/17 09:54 Dose: 1 note Polyethylene Glycol/Electrolytes (Miralax*) 17 gm PO DAILY [facility] Last Admin: 03/08/17 09:48 Dose: 17 gm Polyvinyl Alcohol (Polyvinyl Alcohol 1.4% Opth*) 1 drop BOTH EYES Q2H PRN PRN Reason: DRY EYE Last Admin: 03/07/17 15:37 Dose: 1 drop Prednisone (Deltasone Tab*) 5 mg PO DAILY [facility] Stop: 03/09/17 10:00 Last Admin: 03/08/17 09:39 Dose: 5 mg Pregabalin (Lyrica Cap(*)) 25 mg PO QID [facility] Last Admin: 03/08/17 09:44 Dose: 25 mg Spironolactone (Aldactone Tab*) 25 mg PO QAM [facility] Last Admin: 03/08/17 09:43 Dose: 25 mg Tiotropium [place] (Spiriva Cap.Inh*) 1 cap INH QAM [facility] Last Admin: 03/08/17 08:12 Dose: 1 cap Vital Signs 03/07/17 03/07/17 03/07/17 10:26 10:28 11:27 Temperature 97.9 F Pulse Rate 55 Respiratory 14 14 19 Rate Blood Pressure 98/48 (mmHg) O2 Sat by Pulse 96 Oximetry 03/07/17 03/07/17 03/07/17 12:26 13:47 13:50 Temperature Pulse Rate Respiratory 14 14 16 Rate Blood Pressure (mmHg) O2 Sat by Pulse Oximetry 03/07/17 03/07/17 03/07/17 15:31 15:47 15:50 Temperature Pulse Rate Respiratory 18 7 16 Rate Blood Pressure (mmHg) O2 Sat by Pulse Oximetry 03/07/17 03/07/17 03/07/17 15:52 15:55 17:13 Temperature 98.5 F Pulse Rate 88 Respiratory 12 16 Rate Blood Pressure 102/47 104/60 (mmHg) O2 Sat by Pulse 97 Oximetry 03/07/17 03/07/17 03/07/17 17:30 17:43 19:13 Temperature Pulse Rate Respiratory 16 12 18 Rate Blood Pressure (mmHg) O2 Sat by Pulse Oximetry 03/07/17 03/07/17 03/07/17 19:43 19:57 20:00 Temperature 98.0 F Pulse Rate 71 Respiratory 18 16 16 Rate Blood Pressure 95/43 (mmHg) O2 Sat by Pulse 98 Oximetry 03/07/17 03/07/17 03/07/17 20:11 21:40 21:41 Temperature Pulse Rate 68 Respiratory 18 20 20 Rate Blood Pressure (mmHg) O2 Sat by Pulse 95 Oximetry 03/07/17 03/07/17 03/08/17 23:40 23:41 02:34 Temperature 98.7 F Pulse Rate 64 Respiratory 16 16 16 Rate Blood Pressure 100/57 (mmHg) O2 Sat by Pulse 100 Oximetry 03/08/17 03/08/17 03/08/17 02:39 03:54 04:34 Temperature 97.8 F Pulse Rate 59 Respiratory 16 16 16 Rate Blood Pressure 92/46 (mmHg) O2 Sat by Pulse 100 Oximetry 03/08/17 03/08/17 03/08/17 04:39 07:10 07:55 Temperature Pulse Rate 52 Respiratory 16 16 18 Rate Blood Pressure 99/45 (mmHg) O2 Sat by Pulse 99 Oximetry 03/08/17 03/08/17 09:43 09:44 Temperature Pulse Rate Respiratory 16 16 Rate Blood Pressure (mmHg) O2 Sat by Pulse Oximetry Oxygen Devices in Use Now: None Appearance: Older female patient, ambulating in room, in NAD Eyes: No Scleral Icterus Ears/Nose/Mouth/Throat: Clear Oropharnyx, Mucous Membranes Moist Neck: NL Appearance and Movements; NL JVP Respiratory: Symmetrical Chest Expansion and Respiratory Effort, Clear to Auscultation Cardiovascular: NL Sounds; No Murmurs; No JVD, - - irregular rate/rhythm Abdominal: NL Sounds; No Tenderness; No Distention Extremities: No Edema Neurological: Alert and Oriented x 3, NL Muscle Strength and Tone Lines/Tubes/Other Access: Clean, Dry and Intact Peripheral IV Nutrition: Taking PO's Result Diagrams: 03/07/17 04:58 03/06/17 05:00 Additional Lab and Data: . Microbiology and Other Data: Microbiology 03/05/17 06:45 Nasal Screen MRSA (PCR)(JOSHUA) - Final Nasal Mrsa Negative Assess/Plan/Problems-Billing Assessment: This is an 86 yo female with afib, COPD, chronic pain, hypothyroidism, chronic diastolic HF, thrombocytopenia, peripheral neuropathy, HTN and CAD with recent treatment for EColi PNA who presented with c/o CP with noted cavitary lesion on CT chest. - Patient Problems (1) Chest pain Code(s): R07.9 - CHEST PAIN, UNSPECIFIED Comment: No ACS, CRP not significantly elevated Likely due to lung mass, awaiting pathology Radiology unable to get a clear preliminary read when fluid drawn; pt may require repeat biopsy with CT. (2) Cavitary lesion of lung Code(s): J98.4 - OTHER DISORDERS OF LUNG Comment: Likely malignancy but possibly infectious Pending pathology, may need to repeat if tissue sample insufficient (3) Peripheral neuropathy Code(s): G62.9 - POLYNEUROPATHY, UNSPECIFIED Comment: Improved with increased Opana dosing Continue Lyrica, oxycodone, and Opana Plan to consult pain management on Thursday (4) Chronic diastolic (congestive) heart failure Code(s): I50.32 - CHRONIC DIASTOLIC (CONGESTIVE) HEART FAILURE Comment: No acute exacerbation (5) Afib Code(s): I48.91 - UNSPECIFIED ATRIAL FIBRILLATION Comment: Rate controlled Anticoagulated with Coumadin Coumadin on hold, continue Lovenox BID in anticipation of need for repeat bx (6) Hypothyroidism Code(s): E03.9 - HYPOTHYROIDISM, UNSPECIFIED Comment: TSH 1.5 Continue current levothyroxine dose (7) COPD (chronic obstructive pulmonary disease) Code(s): J44.9 - CHRONIC OBSTRUCTIVE PULMONARY DISEASE, UNSPECIFIED Comment: No acute exacerbation Cont home inhaled medications (8) DVT prophylaxis Comment: Warfarin held in the event patient will need repeat biopsy Continue BID Lovenox (9) Full code status Code(s): Z78.9 - OTHER SPECIFIED HEALTH STATUS Status and Disposition: Inpatient. Pending lung bx pathology
[2017-03-08] MEDS: Artificial Tears* 15 ML BTL BOTH EYES PRN ×2 (11:55→17:58)
[2017-03-08] MEDS: Diltiazem CD CAP* 120 MG PO SCH (12:38)
[2017-03-08] MEDS: Metoprolol Succinate XL TAB* 25 MG PO SCH (12:39)
[2017-03-08] MEDS ORDERED: NS 0.9% 500 ML BAG* 500 ML IV ONE (12:41)
[2017-03-08] MEDS ORDERED: Naloxone* 0.4 MG/ML 1 ML VIAL IV PUSH ONE (21:22)
[2017-03-08] MEDS ORDERED: Naloxone* 0.4 MG/ML 1 ML VIAL ONE (21:27)
[2017-03-08] MEDS: Lidocaine PATCH 5%* 1 PATCH TRANSDERM SCH (22:34)
[2017-03-09] MEDS: Acetaminophen TAB* 325 MG PO PRN ×2 (00:45→10:29)
[2017-03-09] MEDS: oxyCODONE TAB* 5 MG TAB PO PRN ×3 (02:13→16:42)
[2017-03-09] MEDS: Oxymorphone ER (NF) 5 MG TAB PO SCH ×2 (06:03→21:43)
[2017-03-09] MEDS: Levothyroxine TAB* 25 MCG TAB PO SCH (06:04)
[2017-03-09] MEDS: Enoxaparin(*) 60 MG/0.6 ML SYR SUBCUT SCH ×2 (06:04→16:42)
[2017-03-09] MEDS: Polyethylene Glycol 3350* 17 GM PACKET PO SCH (08:15)
[2017-03-09] MEDS: Furosemide TAB* 40 MG PO SCH (08:16)
[2017-03-09] MEDS: Diltiazem CD CAP* 120 MG PO SCH (08:17)
[2017-03-09] MEDS: Metoprolol Succinate XL TAB* 25 MG PO SCH (08:17)
[2017-03-09] MEDS: Aspirin EC Low Dose* 81 MG TAB.EC PO SCH (08:19)
[2017-03-09] MEDS: Omeprazole CAP* 20 MG PO SCH (08:20)
[2017-03-09] MEDS: predniSONE TAB* 5 MG PO SCH (08:20)
[2017-03-09] MEDS: Docusate CAP* 100 MG PO SCH (08:20)
[2017-03-09] MEDS: Spironolactone TAB* 25 MG PO SCH (08:21)
[2017-03-09] MEDS: Pregabalin CAP(*) 25 MG PO SCH ×2 (08:22→13:38)
[2017-03-09] MEDS: Lidocaine Patch REMOVE* 1 NOTE MISC PATCH OFF SCH (08:23)
[2017-03-09] MEDS: Tiotropium CAP.INH* CAP.INH/18 MCG INH SCH (08:54)
[2017-03-09] MEDS: Mometasone/Formoter 200/5 MDI INH SCH ×2 (08:54→21:24)
[2017-03-09] MEDS: LORazepam TAB(*) 0.5 MG PO PRN (10:31)
--- NOTE | 2017-03-09 10:53 | PN ---
Subjective Date of Service: 03/09/17 Interval History: This is an 86 yo female admitted with c/o CP with cavitary lesion with associated nodules on CT. Biopsy completed 03/06/17, pathology reported as benign this am, but there was question as to the quality of the specimen obtained. Patient has been CP free since admission until this am when she reported a return of her CP. She reports it has central/left sided. No associated SOB. The pain is constant. It radiated through to her back briefly. She has been struggling with leg pain during her hospital stay. The leg pain is a chronic complaint for her which she is seen in the pain clinic. She reported that her symptoms were worse than usual despite maintaining her usual home opiates. Her Opana was increased from q12h to 8h administration yesterday. Overnight her respirations fell to 7 per minute and she was given Narcan with good response. She continues to complain of the same pain this am. Objective Active Medications: Acetaminophen (Tylenol Tab*) 650 mg PO Q4H PRN PRN Reason: FEVER/PAIN Last Admin: 03/09/17 10:29 Dose: 650 mg Albuterol/Ipratropium (Duoneb (Albuterol 2.5 Mg/Ipratropium 0.5 Mg)) 1 neb INH Q4H PRN PRN Reason: wheezing Last Admin: 03/09/17 10:40 Dose: 1 neb Aspirin (Aspirin Ec Low Dose*) 81 mg PO [facility] Last Admin: 03/09/17 08:19 Dose: 81 mg Diltiazem HCl (Cardizem Cd Cap*) 120 mg PO [facility] Last Admin: 03/09/17 08:17 Dose: 120 mg Docusate Sodium (Colace Cap*) 100 mg PO [facility] Last Admin: 03/09/17 08:20 Dose: 100 mg Enoxaparin Sodium (Lovenox(*)) 60 mg SUBCUT Q12H [facility] Last Admin: 03/09/17 06:04 Dose: 60 mg [facility]semide (Lasix Tab*) [facility] Last Admin: 03/09/17 08:16 Dose: 40 mg Levalbuterol HCl (Xopenex Hfa Inhaler*) 2 puff INH QID PRN PRN Reason: SOB/WHEEZING Last Admin: 03/09/17 08:56 Dose: 2 puff Levothyroxine Sodium (Synthroid Tab*) 25 mcg PO 0600 [facility] Last Admin: 03/09/17 06:04 Dose: 25 mcg Lidocaine (Lidoderm 5% Patch*) 1 patch TRANSDERM BEDTIME [facility] Last Admin: 03/08/17 22:34 Dose: 1 patch Lorazepam (Ativan Tab(*)) 0.5 mg PO BID PRN PRN Reason: ANXIETY Last Admin: 03/09/17 10:31 Dose: 0.5 mg Metoprolol Succinate (Toprol Xl Tab*) 25 mg PO QAM [facility] Last Admin: 03/09/17 08:17 Dose: 25 mg Mometasone Furoate/Formoterol Fumar (Dulera 200/5 Mdi*) 2 puff INH BID [facility] PRN Reason: Protocol Last Admin: 03/09/17 08:54 Dose: 2 puff Omeprazole (Prilosec Cap*) 20 mg PO DAILY [facility] Last Admin: 03/09/17 08:20 Dose: 20 mg Ondansetron HCl (Zofran Inj*) 4 mg IV Q6H PRN PRN Reason: NAUSEA Last Admin: 03/09/17 10:29 Dose: 4 mg Oxycodone HCl (Roxycodone Tab*) 15 mg PO Q4H PRN PRN Reason: PAIN Last Admin: 03/09/17 08:17 Dose: 15 mg Oxymorphone HCl (Opana Er (Nf)) 15 mg PO Q12H [facility] Pharmacy Profile Note (Lidocaine Patch Remove*) 1 note PATCH OFF 0900 [facility] Last Admin: 03/09/17 08:23 Dose: 1 note Polyethylene Glycol/Electrolytes (Miralax*) 17 gm PO DAILY [facility] Last Admin: 03/09/17 08:15 Dose: 17 gm Polyvinyl Alcohol (Polyvinyl Alcohol 1.4% Opth*) 1 drop BOTH EYES Q2H PRN PRN Reason: DRY EYE Last Admin: 03/08/17 17:58 Dose: 1 drop Pregabalin (Lyrica Cap(*)) 25 mg PO QID [facility] Last Admin: 03/09/17 08:22 Dose: 25 mg Spironolactone (Aldactone Tab*) 25 mg PO QAM [facility] Last Admin: 03/09/17 08:21 Dose: 25 mg Tiotropium [place] (Spiriva Cap.Inh*) 1 cap INH QAM [facility] Last Admin: 03/09/17 08:54 Dose: 1 cap Vital Signs: Temp Pulse Resp BP Pulse Ox 98.6 F 79 18 116/50 98 03/09/17 07:28 03/09/17 10:43 03/09/17 10:43 03/09/17 07:28 03/09/17 10:43 Oxygen Devices in Use Now: None Appearance: Mildly uncomfortable appearing elderly female in no distress sitting with her hands across her chest. Respiratory: Symmetrical Chest Expansion and Respiratory Effort, - - reduced breath sounds with occasional wheeze in the posterior lung keith Cardiovascular: NL Sounds; No Murmurs; No JVD, RRR Abdominal: NL Sounds; No Tenderness; No Distention Extremities: No Edema Skin: No Rash or Ulcers Neurological: Alert and Oriented x 3 Result Diagrams: 03/07/17 04:58 03/06/17 05:00 Additional Lab and Data: . Microbiology and Other Data: Microbiology 03/05/17 06:45 Nasal Screen MRSA (PCR)(JOSHUA) - Final Nasal Mrsa Negative Assess/Plan/Problems-Billing Assessment: This is an 86 yo female with afib, COPD, chronic pain, hypothyroidism, chronic diastolic HF, thrombocytopenia, peripheral neuropathy, HTN and CAD with recent treatment for EColi PNA who presented with c/o CP with noted cavitary lesion on CT chest. - Patient Problems (1) Chest pain Comment: CP recurrent this am, pain is slightly different than the pain that lead to her admission EKG shows no acute changes Trop pending Likely not cardiac Trial use of DuoNeb (2) Cavitary lesion of lung Comment: Likely malignancy but possibly infectious Pathology reported this am as benign with a few bronchial epithelial cells identified that appeared chronically and acutely inflammed Unsure what to make of this finding, discussed with ID who does not recommend empiric abx therapy Requested consultation from pulmonology to eval for possible bronchoscopy v outpt monitoring (3) Peripheral neuropathy Comment: Complaining of greatly increased pain from baseline She experienced resp depression with increasing Opana dose Continue home doses of Lyrica, oxycodone, and Opana at this time Requested consultation from Dr Villalba (4) Chronic diastolic (congestive) heart failure Comment: No acute exacerbation (5) Afib Comment: Rate controlled Anticoagulated with Coumadin Coumadin on hold, continue Lovenox BID in anticipation of need for repeat bx (6) Full code status (7) Diastolic CHF Comment: No acute exacerbation (8) Hypothyroidism Comment: TSH 1.5 Continue current levothyroxine dose (9) COPD (chronic obstructive pulmonary disease) Comment: No acute exacerbation Cont home inhaled medications (10) DVT prophylaxis Comment: Warfarin held in the event patient will need repeat biopsy Continue BID Lovenox (11) Full code status Status and Disposition: Inpatient. Pending pulm/pain consultations.
[2017-03-09] MEDS ORDERED: Morphine INJ* 4 MG/ML 1 ML SYRINGE IV ONE (11:20)
[2017-03-09] MEDS: Pregabalin CAP(*) 50 MG PO SCH ×2 (13:58→21:38)
[2017-03-09] MEDS: Artificial Tears* 15 ML BTL BOTH EYES PRN (16:44)
--- NOTE | 2017-03-09 20:52 | CONS ---
INPATIENT PAIN CONSULTATION: DATE OF CONSULTATION: 03/09/17 REASON FOR CONSULTATION: Sciatica down right leg. HISTORY OF PRESENT ILLNESS: Kimberly Saldana is an 86-year-old female. She has a medical history significant for atrial fibrillation and takes chronic anticoagulation for that. In addition, she has a history of COPD and a longstanding history of sciatica down her right leg. It sometimes goes down her left leg as well. She states she has had the pain down her right leg for many years. She had back surgery done in [place] in 1996 and since the back surgery, had pain down her right leg. As the years progressed, the pain down her right leg has worsened. She has been a long-term patient of the [facility]. She has had epidural steroid injections in the past with modest success. Her last lumbar spine MRI was in December 2014. At that time, it showed severe bilateral neuroforaminal narrowing at L5-S1 with a paracentral disk protrusion abutting both nerve roots and displacing the left S1 nerve root. In addition, moderate bilateral neuroforaminal narrowing was seen at L4-5 and L3-4. For her pain, the patient usually takes Opana ER 15 mg twice a day as well as oxycodone 15 mg every 4 hours as needed. The patient was last seen in the pain clinic in December. The patient was hospitalized with atypical chest pain. This was on 03/04/17. She was having extensive pressure and heaviness in her chest. She had an x-ray taken that showed a cavitary lesion. She was admitted to the hospital and had a lung biopsy done under ultrasound guidance. She has been mainly on bed rest since the biopsy occurred , although she does get up and go to the bathroom. She states that since she has been lying in bed most of the day, the pain down her right leg has gotten worse. Her Opana was increased from every 12 hours to every 8 hours yesterday, but overnight her respirations fell and she was given Narcan. Her Opana was then changed back to every 12 hours. I am asked to see her in consultation. PAST MEDICAL HISTORY: Significant for the aforementioned COPD as well as atrial fibrillation. She has a history of CHF and asthma. CURRENT MEDICATIONS: Include: 1. DuoNeb nebulizer treatment. 2. She is on baby aspirin 81 mg daily. 3. Cardizem CD 120 mg daily. 4. She is on Lovenox 60 twice a day. 5. Lasix 40 mg every morning. 6. Synthroid 25 mcg every morning. 7. Xopenex inhaler 2 puffs 4 times a day. 8. She is on Lidoderm patch. 9. Ativan 0.5 mg twice a day as needed. 10. Toprol-XL 25 mg every morning. 11. Dulera 200/5 two puffs twice a day. 12. Prilosec 20 mg daily. 13. Oxycodone 15 mg every 4 hours as needed. 14. Opana ER 15 mg every 12 hours. 15. Lyrica 25 mg 4 times a day. 16. She is on Spiriva and Aldactone as well. ALLERGIES: To CIPRO and PENICILLIN as well as the FENTANYL PATCH. She states with the fentanyl patch she had difficulty breathing and got hives from the FENTANYL PATCH. SOCIAL HISTORY: She is a former smoker, no longer smokes, no longer drinks. She lives by herself. PHYSICAL EXAM: The patient's temperature is 98.9, blood pressure is 86/36, pulse is 66, respirations 20. HEENT: Head is normocephalic and atraumatic. Her lungs were clear to auscultation bilaterally. Heart sounds were irregular. S1 and S2 audible. Abdomen is soft and nontender. She was examined in bed. She was able to move both legs, although was painful to move her right leg. Muscle strength appeared to be 5/5 throughout. ASSESSMENT: Sciatica down right leg. PLAN: I would like to increase her Lyrica. Her Lyrica dose is subtherapeutic at present. I am not sure why it has never been increased in the past. We will increase it from 25 mg 4 times a day to 50 mg 3 times a day. Further increases may be necessary. In addition, I would not try to increase her Opana given the events of yesterday. We will try to increase her short-acting pain medicine, oxycodone to 20 mg. Given that she is allergic to FENTANYL PATCH, her options for long-acting opioids are probably morphine and OxyContin at this point. For now, we are going to leave her on Opana ER. Thanks for the consultation. I will try to follow up with her in the next 1 to 2 days. [id number]/[facility] #: [id number] [facility]
--- NOTE | 2017-03-09 21:34 | CONS ---
PULMONARY CONSULTATION REPORT: DATE OF CONSULT: 03/09/17 CONSULTATION REQUESTED BY: NEFTALI Colmenares HISTORY OF PRESENT ILLNESS: The patient is an 86-year-old female with history of atrial fibrillation, COPD, chronic pain, diastolic CHF, thrombocytopenia, hypertension, coronary artery disease who was recently admitted in the beginning of this month for severe sepsis secondary to E. coli pneumonia. The patient has required prolonged stay in the intensive care unit. The patient was subsequently discharged home. The patient returned back again with chest pain. The patient reported chest discomfort on admission on the right side radiating to the left associated with pressure and heaviness. The patient also reported worsening shortness of breath around this time. The patient denied any fevers or chills prior to the admission. The patient had CT scan of the chest on admission. I personally reviewed CT scan of the chest images. The patient noted to have a dense consolidation in the superior segment of right lower lobe along with cavitation in the area measuring about 4 cm with smaller satellite nodules around that area. The patient also with evidence of mild mediastinal lymphadenopathy. Evidence of right adrenal nodule also seen. The patient had chest x-ray on 02/20/17 during the recent admission to the ICU, which showed right middle lobe pneumonia with air bronchograms. The patient did not have CT scan of the chest at that time. The patient was seen and examined at bedside by me. The patient reports significant fatigue. The patient reports her breathing is slightly improved today. The patient denies fevers or chills. The patient reports poor appetite. The patient denies hemoptysis. The patient of note, had a CT-guided lung biopsy of right-sided lesion. Pathology is negative for malignancy. Evidence of acute and chronic inflammation was seen. The patient does not have any white count at this time. She is on broad-spectrum antibiotics and is being seen by Infectious Disease. Pulmonary consultation was requested for recommendations regarding this abnormal CT chest findings. The patient also has been having recurrent chest pain. No antibiotics recommended per ID. PAST MEDICAL HISTORY: 1. AFib. 2. COPD. 3. Chronic pain. 4. Hypothyroidism. 5. Diastolic heart failure. 6. Tricuspid regurgitation. 7. Hyperlipidemia. 8. Neuropathy. 9. Hypertension. 10. Coronary artery disease. PAST SURGICAL HISTORY: 1. Gastrectomy. 2. Thyroidectomy. 3. Laparoscopic cholecystectomy. 4. Carpal tunnel release. MEDICATIONS: 1. Prednisone taper when she was admitted, not on steroids now. 2. Oxycodone. 3. Lyrica. 4. MiraLax. 5. Protonix. 6. Opana. 7. Nitro. 8. Linzess. 9. Lidoderm. 10. Synthroid. 11. Xopenex. 12. Ativan. 13. Lasix. 14. Magnesium. 15. Diltiazem. 16. DuoNeb. 17. Vitamin D3. 18. Toprol. 19. Spiriva. 20. Symbicort. 21. Warfarin. 22. Simethicone. 23. Actonel. 24. Colace. 25. Bengay. 26. Calcium. 27. Spironolactone. 28. Aspirin. 29. Artificial tears. ALLERGIES: CIPRO, CODEINE, FENTANYL, PENICILLIN. FAMILY HISTORY: Brain tumor and CAD in mother, CHF in father. SOCIAL HISTORY: Former smoker. No alcohol or drug abuse. She resides at [facility]. REVIEW OF SYSTEMS: All 14 systems reviewed and as per HPI. PHYSICAL EXAM: The patient in bed, in no apparent distress. Vital Signs: Temperature 98.9, pulse 71 beats per minute, respiratory rate 18 per minute, O2 sat on 3 L is 97%, blood pressure 86/36. HEENT: Pupils are equal and reactive to light, mucous membranes moist. Lungs: Diminished air entry at bases, right greater than left. Cardiovascular: S1 and S2 present, regular. No murmurs, gallops, or rubs. Abdomen: Soft, nontender, nondistended. Bowel sounds present. Extremities: Normal range of motion. Neurologic: No focal deficits. Skin: No rash or bruises. DIAGNOSTIC STUDIES/LAB DATA: Laboratory exam showed WBC count is 5.5, hemoglobin 11.3, hematocrit 35, platelet count of 136,000. INR 1.27. Sodium 140, potassium 3.5, chloride 97, bicarb of 39, BUN 30, creatinine 1.25. Troponins are within normal limits. CRP 5.67. Chest x-ray and CT as described above in HPI. Microbiological testing: Tissue cultures negative to date. Blood cultures negative to date. The patient did have E. coli in the sputum, sensitive to all antibiotics. MRSA negative. IMPRESSION AND RECOMMENDATION: 86-year-old female, former smoker with a history of chronic obstructive pulmonary disease, recently admitted with E. coli sepsis with readmission for chest pain, CT of chest suggestive of right lower lobe consolidation, with cavitary lesion and satellite lesions, was concerning for neoplasia, CT-guided biopsy was negative for malignancy, and inflammation noted. Lesion is not amenable to bronchoscopy, would recommend management as infectious etiology given recent E. coli infection and sepsis. Would recommend followup CT scan in 2 weeks, if continues to have opacity, would recommend repeat CT-guided biopsy. This was discussed with the patient and she is agreeable. Thank you for allowing me to participate in the care of your patient. Will follow up with you. [id number]/[facility] #: [id number] [facility]
[2017-03-09] MEDS: Lidocaine PATCH 5%* 1 PATCH TRANSDERM SCH (21:36)
[2017-03-10] MEDS: oxyCODONE TAB* 5 MG TAB PO PRN (03:55)
[2017-03-10] MEDS: Enoxaparin(*) 60 MG/0.6 ML SYR SUBCUT SCH (03:57)
[2017-03-10] MEDS: Levothyroxine TAB* 25 MCG TAB PO SCH (04:56)
[2017-03-10 07:46] VITALS: BP 110/57
[2017-03-10] MEDS: Mometasone/Formoter 200/5 MDI INH SCH (07:58)
[2017-03-10] MEDS: Tiotropium CAP.INH* CAP.INH/18 MCG INH SCH (07:59)
[2017-03-10] MEDS: Polyethylene Glycol 3350* 17 GM PACKET PO SCH (08:37)
[2017-03-10] MEDS: Pregabalin CAP(*) 50 MG PO SCH (08:39)
[2017-03-10] MEDS: LORazepam TAB(*) 0.5 MG PO PRN (08:39)
[2017-03-10] MEDS: Omeprazole CAP* 20 MG PO SCH (08:40)
[2017-03-10] MEDS: Acetaminophen TAB* 325 MG PO PRN (08:40)
[2017-03-10] MEDS: Metoprolol Succinate XL TAB* 25 MG PO SCH (08:41)
[2017-03-10] MEDS: Docusate CAP* 100 MG PO SCH (08:41)
[2017-03-10] MEDS: Aspirin EC Low Dose* 81 MG TAB.EC PO SCH (08:41)
[2017-03-10] MEDS: Diltiazem CD CAP* 120 MG PO SCH (08:42)
[2017-03-10] MEDS: Spironolactone TAB* 25 MG PO SCH (08:42)
[2017-03-10] MEDS: Oxymorphone ER (NF) 5 MG TAB PO SCH (08:43)
[2017-03-10] MEDS: Furosemide TAB* 40 MG PO SCH (08:43)
[2017-03-10] MEDS: Artificial Tears* 15 ML BTL BOTH EYES PRN (08:45)
[2017-03-10] MEDS: Lidocaine Patch REMOVE* 1 NOTE MISC PATCH OFF SCH (08:46)
--- NOTE | 2017-03-10 10:39 | DS ---
CC: [facility]; Dr. Thompson; Dr. Camacho; Dr. Wilkinson; Dr. Villalba * DISCHARGE SUMMARY: DATE OF ADMISSION: 03/04/17 DATE OF DISCHARGE: 03/10/17 PRIMARY CARE PROVIDER: Dr. Jose Thompson. CONSULTING INFECTIOUS DISEASE SPECIALIST: Dr. Angelito Camacho. CONSULTING INJECTION SPECIALIST: Dr. Wilkinson. CONSULTING PAIN SPECIALIST: Dr. Villlaba. DISCHARGING PROVIDER: NEFTALI Taylor. SUPERVISING PHYSICIAN: Dr. Jake Horowitz * (dictated by NEFTALI Taylor) PRIMARY DISCHARGE DIAGNOSES: 1. Cavitary lesion of the lung - unknown etiology, does not appear to be infectious, but cultures are pending in the setting of recent E. coli pneumonia , pathology negative for malignancy from guided lung biopsy, although the quality of the specimen was questionable at the time it was obtained - the patient requires a followup CT scan in 2 to 4 weeks, with followup with Dr. Wilkinson and Dr. Camacho to guide further intervention and appropriate therapy. 2. Chest pain - this appears to be noncardiac, no evidence of recurrent pneumonia. 3. Peripheral neuropathy with exacerbation of her chronic pain - this was patient's primary complaint during her hospital stay and she is under the care of the Pain Clinic for this and was evaluated by Dr. Villalba with medication changes as outlined above. SECONDARY DISCHARGE DIAGNOSES: 1. Chronic diastolic heart failure without acute exacerbation. 2. Atrial fibrillation, which is rate controlled, and chronically anticoagulated with Coumadin, which was interrupted for her lung biopsy. She was continued on Lovenox during her hospital stay and Coumadin will be resumed at discharge. 3. Hypothyroidism, with a normal TSH. 4. COPD, without evidence of acute exacerbation. 5. Recent E. coli pneumonia, status post completion of antibiotics and steroid taper. DISCHARGE MEDICATIONS: 1. DuoNeb 1 neb inhaled q.4 hours as needed for shortness of breath. 2. Magnesium 250 mg p.o. daily. 3. Artificial tears 1 drop in both eyes every 2 hours as needed for dry eyes. 4. Aspirin 81 mg p.o. daily. 5. Symbicort 160/4.5, 2 puffs inhaled twice daily. 6. Calcium 500 mg p.o. daily. 7. Vitamin D 50,000 units p.o. monthly. 8. Diltiazem 120 mg p.o. daily. 9. Docusate 100 mg p.o. daily. 10. Lasix 40 mg p.o. daily. 11. Lorazepam 0.5 mg p.o. twice daily as needed for anxiety. 12. Xopenex 2 puffs inhaled 4 times daily as needed for shortness of breath. 13. Levothyroxine 25 mcg p.o. daily. 14. Lidoderm patch 1 patch applied transdermally at bedtime. 15. Linzess 290 mcg p.o. daily. 16. Bengay 5% topical cream applied at bedtime. 17. Metoprolol succinate 25 mg p.o. daily. 18. Nitroglycerin 0.4 mg sublingual q.5 minutes as needed for chest pain. 19. Opana extended release 15 mg p.o. q.12 hours. 20. Protonix 40 mg p.o. daily. 21. MiraLAX 17 g p.o. daily. 22. Lyrica 50 mg p.o. 3 times daily. 23. Actonel 35 mg p.o. on Sundays. 24. Simethicone 80 to 160 mg p.o. after meals and bedtime as needed for indigestion. 25. Spironolactone 25 mg p.o. daily. 26. Spiriva 1 capsule inhaled daily. 27. Coumadin 4 mg p.o. daily. 28. Oxycodone 20 mg p.o. q.4 hours as needed for pain. Medication Changes: 1. Increased Lyrica. 2. Increased p.r.n. oxycodone. 3. Completed prednisone taper. HOSPITAL IMAGIN. Chest x-ray shows persistent air space disease of the right upper lobe, improved aeration of the right lower lung. 2. CTA of the chest, abdomen, and pelvis demonstrates cavitary mass in the superior segment of the right lower lobe measuring up to 4.4 cm in size. Multiple smaller nodules are noted throughout the right lung. Appearance is most consistent with neoplasm. Noted right adrenal nodule. Emphysematous changes, associated mediastinal lymphadenopathy. There is a splenic cyst present. Noted biliary dilatation, similar to prior exam. 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 3. Ultrasound of the chest showed posterior chest wall mass amenable to ultrasound- guided biopsy. 4. Repeat chest x-ray, 03/06/17, shows no acute abnormalities, status post right lung biopsy. 5. Pathology shows benign reactive bronchial epithelium and acute on chronic inflammatory changes. Connective tissue elements including fibroadipose muscle fragments. No evidence of malignancy identified. 6. EKG demonstrates AFib without acute ischemic changes, but remains unchanged on serial tracings. HOSPITAL COURSE: This is an 86-year-old female with history of COPD as well as diastolic heart failure and chronic pain secondary to peripheral neuropathy who was recently hospitalized with an E. coli pneumonia, who returned to the hospital with a chief complaint of chest pain. The patient had persistent productive cough since discharge from the hospital, but remained afebrile. Initial CBC was unremarkable with the exception of mild normocytic anemia, which appeared to be chronic for her. Her INR was supratherapeutic at 4. 68. Her D-dimer was moderately elevated at 346. Initial chemistries showed a BUN of 28 and creatinine of 1.2, with a subsequent estimated GFR of 42, which is slightly below her baseline. Lactic acid was normal. Magnesium slightly elevated. CRP only mildly elevated at 8.3. BNP is essentially normal at 288 and her initial troponin was negative at 0.01. Chest x-ray was performed, which demonstrated persistent opacity in the right lung. Due to this finding along with her moderately elevated D-dimer, the patient underwent CTA of chest, abdomen, and pelvis. No PE was identified, but there was cavitary lesion of the right lung corresponding to the area of opacity on chest x-ray. There was associated nodules within the right lung field as well. When compared to CT from August of this year, cavitary lesion was new as well as the associated nodules. Based on the appearance of the cavitary lesion and her history of smoking, without there being significant elevation of inflammatory markers, this was considered to be most likely malignancy. A biopsy was delayed due to her supratherapeutic INR, which was reversed and the patient underwent ultrasound-guided biopsy of the mass. Interventional Radiology was unsure of the quality of the specimen obtained and this was subsequently sent for Pathology. No evidence of significant purulent material drained from the mass. Patient was examined by Infectious Disease given her recent E. coli pneumonia. Infection was certainly still on the list of differential to explain the cavitary lesion. In the absence of significant inflammatory markers and absence of fever, additional antibiotics were held. Pathology returned benign showing some mild inflammatory changes, but no evidence of malignancy. Patient had one additional episode of chest pain. Repeat EKGs and troponins at that time also remained within normal limits. Her chest pain does not appear to be cardiac, unsure if it is related to her lung mass, but it does not appear to be pleuritic or persistent at this time. Requested consultation from senior publications specialist, Dr. Wilkinson, to evaluate for possible bronchoscopy for additional biopsy assistance. Dr. Wilkinson did not feel that the mass is amenable to bronchoscopy. Both Infectious Disease and Pulmonology recommend followup CT in 2 to 4 weeks and if there is significant interval change, then repeat biopsy should be performed. The patient struggled with her chronic leg pain during her hospital stay and this remained one of her major complaints. At one point, her Opana was increased from twice daily schedule to 3 times daily schedule and patient required Narcan due to fairly reduced respirations. She was subsequently evaluated by pain specialist, Dr. Villalba, who recommended increasing her Lyrica, as well as p.r.n. oxycodone, which the patient seemed to respond well to without respiratory depression. The patient is chronically followed by the Pain Clinic for treatment of her neuropathy pain as well. DISPOSITION AND FOLLOWUP PLAN: The patient is returning to [facility]. Etiology of her lung mass is not entirely known at this time. No empiric antibiotics will be initiated at the time of discharge. The patient does require followup CT scan in 2 to 4 weeks along with followup with Dr. Camacho and Dr. Wilkinson to review results and guide further intervention and appropriate therapy. Coumadin is being resumed at the time of discharge and she needs a repeat INR on 03/13/17. She also requires close followup with the Pain Clinic. As stated above, this remains one of her major complaint. NEFTALI TAYLOR [id number]/[facility] #: [id number] MTDD
== END 2017-03-10 11:45 | DRG 206 ==
LOC: ED 15:33 → MEDTELE 20:52
PROVIDERS: ADMIT Hospitalist; ATTEND Internal Medicine
PROC: 0BBC3ZX Excision of Right Upper Lung Lobe, Percutaneous Approach, Diagnostic (ICD-10-PCS; principal; 2017-03-06)
DX: J98.4 Other disorders of lung (principal); D68.9 Coagulation defect, unspecified; I11.0 Hypertensive heart disease with heart failure; E27.8 Other specified disorders of adrenal gland; I95.9 Hypotension, unspecified; D69.6 Thrombocytopenia, unspecified; I50.32 Chronic diastolic (congestive) heart failure; R91.1 Solitary pulmonary nodule; I27.2 Other secondary pulmonary hypertension; I48.91 Unspecified atrial fibrillation; G62.9 Polyneuropathy, unspecified; I07.1 Rheumatic tricuspid insufficiency; F32.9 Major depressive disorder, single episode, unspecified; J44.9 Chronic obstructive pulmonary disease, unspecified; G89.29 Other chronic pain; D73.4 Cyst of spleen; I71.4 Abdominal aortic aneurysm, without rupture; D64.9 Anemia, unspecified; R91.8 Other nonspecific abnormal finding of lung field; E03.9 Hypothyroidism, unspecified; I25.10 Atherosclerotic heart disease of native coronary artery without angina pectoris; E78.5 Hyperlipidemia, unspecified; K21.9 Gastro-esophageal reflux disease without esophagitis; M15.9 Polyosteoarthritis, unspecified; F41.9 Anxiety disorder, unspecified; R40.2412 Glasgow coma scale score 13-15, at arrival to emergency department; M54.31 Sciatica, right side; R07.89 Other chest pain; Z79.82 Long term (current) use of aspirin; Z90.3 Acquired absence of stomach [part of]; Z90.49 Acquired absence of other specified parts of digestive tract; Z88.5 Allergy status to narcotic agent; Z88.1 Allergy status to other antibiotic agents; Z88.0 Allergy status to penicillin; Z82.49 Family history of ischemic heart disease and other diseases of the circulatory system; Z80.8 Family history of malignant neoplasm of other organs or systems; Z87.891 Personal history of nicotine dependence; Z87.01 Personal history of pneumonia (recurrent); Z90.710 Acquired absence of both cervix and uterus; Z98.42 Cataract extraction status, left eye; Z98.41 Cataract extraction status, right eye; Z86.11 Personal history of tuberculosis; Z79.01 Long term (current) use of anticoagulants
CPT/HCPCS: 36415; 71010; 71020; 71275; 74174; 76604; 76942; 80048; 80053; 81003; 81015; 82550; 82553; 83605; 83690; 83735; 83880; 84443; 84484; 85025; 85060; 85379; 85610; 85730; 86140; 87040; 87070; 87102; 87116; 87205; 87206; 87641; 88172; 88173; 88177; 88305; 93005; 94640; 94760; A9270-GY; J1650; J2270; J2310; J2405; J3475; J7512; Q9967

== ENCOUNTER 2017-03-18 11:15 | Emergency (ER) | payer MEDICARE, BC ==
[2017-03-18] MEDS ORDERED: NS 0.9% 1000 ML* 1,000 ML IV ONE (11:51)
[2017-03-18 12:29] LABS: Hematocrit 32 % (35-47); Hemoglobin 10.5 g/dl (12.0-16.0); Mean Corpuscular HGB Conc 33 g/dl (31-36); Mean Corpuscular Hemoglobin 30 pg (27-31); Mean Corpuscular Volume 92 fL (80-97); Mean Platelet Volume 9 um3 (7.4-10.4); Red Blood Count 3.52 10^6/ul (4.0-5.4); Red Cell Distribution Width 18 % (10.5-15); White Blood Count 5.8 10^3/ul (3.5-10.8)
--- NOTE | 2017-03-18 12:31 | RAD ---
INDICATION: Chest pain. Pneumonia. CHF. COMPARISON: Chest x-ray 2016 TECHNIQUE: An AP portable view obtained at 1200 hours is submitted. FINDINGS: Bones/Soft Tissues: There are no acute bony findings. Cardiomediastinal: The cardiomediastinal silhouette is normal. Lungs: There is a masslike density in the right upper lobe. The remaining lung keith are clear. There is hyperinflation. Pleura: There are no pleural effusions. Other: None IMPRESSION: MASSLIKE DENSITY RIGHT UPPER LOBE. HYPERINFLATION. NO ACUTE FINDINGS
[2017-03-18 12:40] LABS: Albumin 3.1 g/dL (3.2-5.2); BUN/Creatinine Ratio 27.3 (8-20); Calcium 8.5 mg/dL (8.6-10.3); EGFR African American 46.2 (>60); EGFR Non-African American 35.9 (>60); Globulin 3.1 g/dL (2-4); Magnesium 1.7 mg/dL (1.9-2.7); Potassium 3.8 mmol/L (3.5-5.0); Total Bilirubin 0.4 mg/dL (0.2-1.0); Total Protein 6.2 g/dL (6.4-8.9)
[2017-03-18 12:42] LABS: Troponin I 0.01 ng/mL (<0.04)
[2017-03-18] MEDS ORDERED: oxyCODONE TAB* 5 MG TAB PO ONE (13:35)
[2017-03-18] MEDS ORDERED: Morphine INJ* 4 MG/ML 1 ML SYRINGE IV ONE (13:37)
[2017-03-18 14:37] VITALS: BP 115/67
--- NOTE | 2017-03-18 15:46 | ED ---
Sharad Xie Angela, scribed for Jassi Gutierrez MD on 03/18/17 at 1139 . HPI Chest Pain - HPI Summary HPI Summary: This pt is a 86 y/o female BIBA presenting to [facility] c/o constant chest pain since this morning. Pt describes her chest pain as if someone is pressing on her chest. Associated symptoms include nausea and leg swelling. She endorses right leg pain due to peripheral neuropathy. Pt's chest pain is rated 6 out of 10 in severity. En route, EMS gave the pt 4 baby ASA. Pt denies SOB, diaphoresis , fever, abd pain. Pt is on home O2. She notes she was in the ED during the first week of February for pneumonia and CHF. Pt is anticoagulated (on Coumadin) and takes baby ASA every day. She lives by herself. PMHx includes emphysema, COPD, and CHF. - History of Current Complaint Chief Complaint: EDChestPainROMI Time Seen by Provider: 03/18/17 11:24 Hx Obtained From: Patient Onset/Duration: Started Hours Ago Timing: Constant Pain Intensity: 6 Pain Scale Used: 0-10 Numeric Chest Pain Radiates: No Character: Crushing, Pressure/Squeezing Aggravating Factor(s): Nothing Alleviating Factor(s): Nothing Associated Signs and Symptoms: Positive: Chest Pain, Nausea, Calf Pain/ Swelling. Negative: Numbness, Tingling, Weakness, Shortness of Breath, Diaphoresis, Abdominal Pain - Additional Pertinent History Primary Care Physician: [id number] - Allergy/Home Medications Allergies/Adverse Reactions: Allergies Allergy/AdvReac Type Severity Reaction Status Date / Time Ciprofloxacin [From Cipro] Allergy Unknown Hives Verified 03/18/17 11:23 Codeine Allergy Unknown Hives Verified 03/18/17 11:23 Fentanyl Allergy Unknown Difficulty Verified 03/18/17 11:23 Breathing Penicillins [PCN] Allergy Unknown Hives Verified 03/18/17 11:23 Sulfamethoxazole AdvReac Intermediate Nausea Verified 03/18/17 11:23 w/Trimethoprim [From Bactrim] Home Medications: Home Medications Magnesium [Essential Magnesium] 250 mg PO DAILY 03/18/17 [History Confirmed 12/27] PMH/Surg Hx/FS Hx/Imm Hx Endocrine/Hematology History: Reports: Hx Anticoagulant Therapy - coumadin for a fib, Hx Blood Disorders - chronic thrombocytopenia, Hx Thyroid Disease - juwan, Hx Anemia - HX OF Denies: Hx Diabetes Cardiovascular History: Reports: Hx Angina, Hx Congestive Heart Failure, Hx Coronary Artery Disease, Hx Hypercholesterolemia, Hx Hypertension, Other Cardiovascular Problems/Disorders - AFIB Denies: Hx Deep Vein Thrombosis, Hx Myocardial Infarction, Hx Pacemaker/ICD, Hx Valvular Heart Disease Respiratory History: Reports: Hx Asthma, Hx Chronic Obstructive Pulmonary Disease (COPD), Hx Pneumonia - Hospitalized from 10/14/14 - 10/25/14 and 04/26; 2016, Hx Seasonal Allergies, Other Respiratory Problems/Disorders - BILAT PNEUMONIA 10/25. PT WITH TB 1994 Denies: Hx Lung Cancer - 2L O2 at night - on 4L continuous since pneumonia January 2017, Hx Pulmonary Embolism GI History: Reports: Hx Gall Bladder Disease - cholecystectomy 1976, Hx Gastroesophageal Reflux Disease - CONTROL WITH MED, Hx Ulcer, Other GI Disorders - partial gastrectomy 1972 Denies: Hx Gastrointestinal Bleed, Hx Urosepsis History: Reports: Other Problems/Disorders - hysterectomy breast biopsy left Denies: Hx Kidney Stones, Hx Renal Disease Musculoskeletal History: Reports: Hx Arthritis - BACK, KNEES, Hx Back Problems - laminectomy, Hx Orthopedic Injury - hx r arm, r ankle, toes, Other Musculoskeletal History - back surgery 1995 Sensory History: Reports: Hx Cataracts - removed, Hx Contacts or Glasses - READING GLASSES Denies: Hx Hearing Aid, Other Sensory Impairments Opthamlomology History: Reports: Hx Cataracts - removed, Hx Contacts or Glasses - READING GLASSES Denies: Other Sensory Impairments Neurological History: Reports: Other Neuro Impairments/Disorders - PERIPHERAL NEUROPATHY BILAT, PAIN CLINIC PATIENT Denies: Hx Dementia, Hx Developmental Delay, Hx Migraine, Hx Seizures, Hx Transient Ischemic Attacks (TIA) Psychiatric History: Reports: Hx Anxiety - CONTROL WITH MED, Hx Depression - CONTROL WITH MED Denies: Hx Panic Disorder, Hx Schizophrenia, Hx Bipolar Disorder, Hx Suicide Attempt, Hx of Violent Episodes Against Others - Cancer History Cancer Type, Location and Year: breast lumpectomy, no treatment Hx Chemotherapy: No Hx Radiation Therapy: No - Surgical History Surgery Procedure, Year, and Place: T&A A CHILD. groin abscess A CHILD. appendectomy, cholecystectomy, [facility]. hysterectomy partial, [facility]. thyroidectomy partial, [facility]. L breast and R lung biopsies, [facility]. 1995 laminectomy L4,5, [facility]. gastrectomy partial 1972;. Carpal Tunnel Surgery Right Wrist by Dr. Chauhan in July 2015. BILAT CATARACTS, [facility] [place]. right lymph node bx 1994, [facility]. [place] [facility] [place] 1982, [facility] [place] Hx Anesthesia Reactions: No - Immunization History Date of Tetanus Vaccine: 2013 Date of Influenza Vaccine: Fall 2012 Infectious Disease History: No Infectious Disease History: Reports: Hx Tuberculosis - 1990s, per pt Denies: Hx Clostridium Difficile, Hx Hepatitis, Hx Human Immunodeficiency Virus (HIV), Hx of Known/Suspected MRSA, Traveled Outside the [place] in Last 30 Days - Family History Known Family History: Positive: None, Cardiac Disease - father - CHF, brother - aneurysm Negative: Hypertension, Diabetes Family History: R & N/C - Social History Alcohol Use: Rare Hx Substance Use: No Substance Use Type: Reports: None Substance Use Comment - Amount & Last Used: oxycodone and oxymorphone Hx Tobacco Use: Yes Smoking Status (MU): Former Smoker - QUIT 26 YRS AGO Type: Cigarettes Amount Used/How Often: 2 packs per week Length of Time of Smoking/Using Tobacco: ON AND OFF 45 YRS Have You Smoked in the Last Year: No Review of Systems Negative: Fever, Chills Eyes: Negative ENT: Negative Positive: Chest Pain Negative: Shortness Of Breath Positive: Nausea. Negative: Abdominal Pain, Vomiting Genitourinary: Negative Musculoskeletal: Negative Skin: Negative Negative: Headache, Weakness, Paresthesia, Numbness Psychological: Normal All Other Systems Reviewed And Are Negative: Yes Physical Exam - Summary Physical Exam Summary: The patient is well-nourished in mild acute distress. The skin is warm and dry. The patient is pale looking. HEENT: The head is normocephalic and atraumatic. The pupils are equal and reactive. The conjunctivae are clear and without drainage. Nares are patent and without drainage. Mouth reveals dry mucous membranes and the throat is without erythema and exudate. The external ears are intact. The ear canals are patent and without drainage. The tympanic membranes are intact. Neck is supple with full range of motion and non-tender. There is no neck vein distension. Respiratory: There are crackles in the bases bilaterally. Cardiovascular: Hear is regular controlled rate and rhythm. There is no murmur or rub auscultated. There is peripheral edema in lower extremities. There is good distal pulses. Abdomen: The abdomen is soft and non-tender. There are normal bowel sounds heard in all four quadrants. Musculoskeletal: There is no back pain noted. Extremities are non-tender with full range of motion. There is good capillary refill. There is pedal edema in the lower extremity. Neurological: Patient is alert and oriented to person, place and time. The patient has symmetrical motor strength in all four extremities. Psychiatric: The patient has an appropriate affect and does not exhibit any anxiety or depression. Triage Information Reviewed: Yes Vital Signs On Initial Exam: Initial Vitals Temp Pulse Resp BP Pulse Ox 98 F 74 12 108/57 99 03/18/17 11:23 03/18/17 11:23 03/18/17 11:23 03/18/17 11:23 03/18/17 11:23 Vital Signs Reviewed: Yes Diagnostics - Vital Signs Vital Signs Temp Pulse Resp BP Pulse Ox 03/18/17 11:23 98 F 74 12 108/57 99 - Laboratory Lab Results: Lab Results 03/18/17 03/18/17 03/18/17 Range/Units 12:14 12:14 12:14 WBC 5.8 (3.5-10.8) 10^3/ul RBC 3.52 L (4.0-5.4) 10^6/ul Hgb 10.5 L (12.0-16.0) g/dl Hct 32 L (35-47) % MCV 92 (80-97) fL MCH 30 (27-31) pg MCHC 33 (31-36) g/dl RDW 18 H (10.5-15) % Plt Count 116 L (150-450) 10^3/ul MPV 9 (7.4-10.4) um3 Neut % (Auto) 66.5 (38-83) % Lymph % (Auto) 21.5 L (25-47) % Hudson % (Auto) 9.6 H (1-9) % Eos % (Auto) 1.4 (0-6) % Baso % (Auto) 1.0 (0-2) % Absolute Neuts (auto) 3.8 (1.5-7.7) 10^3/ul Absolute Lymphs (auto) 1.2 (1.0-4.8) 10^3/ul Absolute Monos (auto) 0.6 (0-0.8) 10^3/ul Absolute Eos (auto) 0.1 (0-0.6) 10^3/ul Absolute Basos (auto) 0.1 (0-0.2) 10^3/ul Absolute Nucleated RBC 0 10^3/ul Nucleated RBC % 0.1 INR (Anticoag Therapy) (0.89-1.11) Sodium 139 (133-145) mmol/L Potassium 3.8 (3.5-5.0) mmol/L Chloride 100 L (101-111) mmol/L Carbon Dioxide 33 H (22-32) mmol/L Anion Gap 6 (2-11) mmol/L BUN 38 H (6-24) mg/dL Creatinine 1.39 H (0.51-0.95) mg/dL Est GFR ( Amer) 46.2 (>60) Est GFR (Non-Af Amer) 35.9 (>60) BUN/Creatinine Ratio 27.3 H (8-20) Glucose 99 (70-100) mg/dL Lactic Acid (0.5-2.0) mmol/L Calcium 8.5 L (8.6-10.3) mg/dL Magnesium 1.7 L (1.9-2.7) mg/dL Total Bilirubin 0.40 (0.2-1.0) mg/dL AST 20 (13-39) U/L ALT 21 (7-52) U/L Alkaline Phosphatase 89 (34-104) U/L Troponin I 0.01 (<0.04) ng/mL B-Natriuretic Peptide 433 H ( - 100) pg/mL Total Protein 6.2 L (6.4-8.9) g/dL Albumin 3.1 L (3.2-5.2) g/dL Globulin 3.1 (2-4) g/dL Albumin/Globulin Ratio 1.0 (1-3) 03/18/17 03/18/17 Range/Units 12:14 12:14 WBC (3.5-10.8) 10^3/ul RBC (4.0-5.4) 10^6/ul Hgb (12.0-16.0) g/dl Hct (35-47) % MCV (80-97) fL MCH (27-31) pg MCHC (31-36) g/dl RDW (10.5-15) % Plt Count (150-450) 10^3/ul MPV (7.4-10.4) um3 Neut % (Auto) (38-83) % Lymph % (Auto) (25-47) % Hudson % (Auto) (1-9) % Eos % (Auto) (0-6) % Baso % (Auto) (0-2) % Absolute Neuts (auto) (1.5-7.7) 10^3/ul Absolute Lymphs (auto) (1.0-4.8) 10^3/ul Absolute Monos (auto) (0-0.8) 10^3/ul Absolute Eos (auto) (0-0.6) 10^3/ul Absolute Basos (auto) (0-0.2) 10^3/ul Absolute Nucleated RBC 10^3/ul Nucleated RBC % INR (Anticoag Therapy) 2.93 H (0.89-1.11) Sodium (133-145) mmol/L Potassium (3.5-5.0) mmol/L Chloride (101-111) mmol/L Carbon Dioxide (22-32) mmol/L Anion Gap (2-11) mmol/L BUN (6-24) mg/dL Creatinine (0.51-0.95) mg/dL Est GFR ( Amer) (>60) Est GFR (Non-Af Amer) (>60) BUN/Creatinine Ratio (8-20) Glucose (70-100) mg/dL Lactic Acid 1.4 (0.5-2.0) mmol/L Calcium (8.6-10.3) mg/dL Magnesium (1.9-2.7) mg/dL Total Bilirubin (0.2-1.0) mg/dL AST (13-39) U/L ALT (7-52) U/L Alkaline Phosphatase (34-104) U/L Troponin I (<0.04) ng/mL B-Natriuretic Peptide ( - 100) pg/mL Total Protein (6.4-8.9) g/dL Albumin (3.2-5.2) g/dL Globulin (2-4) g/dL Albumin/Globulin Ratio (1-3) Result Diagrams: 03/18/17 12:14 03/18/17 12:14 Lab Statement: Any lab studies that have been ordered have been reviewed, and results considered in the medical decision making process. - Radiology Chest XR Xray Interpretation: Positive (See Comments) - IMPRESSION: Masslike density right upper lobe. Hyperinflation. No acute findings. ED physician has reviewed this radiology report and agrees. Radiology Interpretation Completed By: Radiologist - EKG 1118 Cardiac Rate: Other Rate - controlled rate EKG Rhythm: Atrial Fibrillation EKG Interpretation: Normal axis. No ST elevations Chest Pain Course/Dx - Course Assessment/Plan: Pt is a 86 y/o female presenting to [facility] c/o constant chest pain since this morning. Labs, EKG, and chest XR were obtained. In the ED course , the pt received IV fluids. Labs reveals platelet count of 116, INR of 2.93, creatinine of 1.39, B-Natriuretic Peptide of 433. Troponin is negative. Chest XR shows masslike density right upper lobe. Hyperinflation. No acute findings. Pt will be discharged in stable condition. - Chest Pain Differential Diagnosis/HQI/PQRI: ACS, Angina, Other: - lung mass - Diagnoses Provider Diagnoses: Chest pain, Mass in right upper lobe of lungs Discharge - Discharge Plan Condition: Stable Disposition: HOME Patient Education Materials: Chest Pain (ED) Referrals: Jose Thompson MD [Primary Care Provider] - The documentation as recorded by the Sharad lynne Angela accurately reflects the service I personally performed and the decisions made by , Jassi Gutierrez MD.
== END 2017-03-18 15:40 | disposition home or self-care (01) ==
LOC: ED 11:15
DX: R07.9 Chest pain, unspecified (principal); R91.8 Other nonspecific abnormal finding of lung field; Z87.891 Personal history of nicotine dependence; I48.91 Unspecified atrial fibrillation; Z79.01 Long term (current) use of anticoagulants; D69.6 Thrombocytopenia, unspecified; E07.9 Disorder of thyroid, unspecified; F41.8 Other specified anxiety disorders; I50.9 Heart failure, unspecified; J44.9 Chronic obstructive pulmonary disease, unspecified; Z88.5 Allergy status to narcotic agent; Z88.0 Allergy status to penicillin; Z88.2 Allergy status to sulfonamides
CPT/HCPCS: 36415; 71010; 80053; 83605; 83735; 83880; 84484; 85025; 85610; 93005; 96374; 99283; A9270-GY; J2270

== ENCOUNTER 2017-05-27 14:26 | Emergency (ER) | payer MEDICARE, BC ==
[2017-05-27 14:39] VITALS: BP 108/51
[2017-05-27] MEDS ORDERED: Iodixanol* (CONTRAST) 320 MG/ML 100 ML SDV IV ONE (16:15)
[2017-05-27 16:34] LABS: Hematocrit 33 % (35-47); Hemoglobin 10.5 g/dl (12.0-16.0); Mean Corpuscular HGB Conc 32 g/dl (31-36); Mean Corpuscular Hemoglobin 29 pg (27-31); Mean Corpuscular Volume 90 fL (80-97); Mean Platelet Volume 9 um3 (7.4-10.4); Red Blood Count 3.62 10^6/ul (4.0-5.4); Red Cell Distribution Width 17 % (10.5-15); White Blood Count 6.1 10^3/ul (3.5-10.8)
[2017-05-27 16:39] LABS: Urine Bacteria 1+ (Absent); Urine Bilirubin Negative (Negative); Urine Glucose Negative (Negative); Urine Nitrite Negative (Negative)
[2017-05-27 16:43] LABS: Albumin 3.7 g/dL (3.2-5.2); BUN/Creatinine Ratio 25.7 (8-20); Calcium 8.9 mg/dL (8.6-10.3); EGFR African American 44.3 (>60); EGFR Non-African American 34.4 (>60); Globulin 3.6 g/dL (2-4); Total Bilirubin 0.4 mg/dL (0.2-1.0); Total Protein 7.3 g/dL (6.4-8.9)
--- NOTE | 2017-05-27 16:46 | ED ---
Abdominal Pain/Female - HPI Summary HPI Summary: 87F presents with mass in right side of abdomen for two days. Her home nurse found it and called her primary who recommended that she come here. She states that is it not causing her any pain. She denies any vomiting, nausea or diarrhea. She has history of chronic constipation that is unchanged. She has had her appendix, gallbladder, uterus, and part of her stomach removed. She has no complaints. no recent weight loss or fever. - History of Current Complaint Chief Complaint: EDGeneral Stated Complaint: RT SIDE ABD LUMP Time Seen by Provider: 05/27/17 15:47 Pain Intensity: 0 Allergies/Adverse Reactions: Allergies Allergy/AdvReac Type Severity Reaction Status Date / Time Ciprofloxacin [From Cipro] Allergy Unknown Hives Verified 05/05/17 14:43 Codeine Allergy Unknown Hives Verified 05/05/17 14:43 Fentanyl Allergy Unknown Difficulty Verified 05/05/17 14:43 Breathing Penicillins [PCN] Allergy Unknown Hives Verified 05/05/17 14:43 Sulfamethoxazole AdvReac Intermediate Nausea Verified 05/05/17 14:43 w/Trimethoprim [From Bactrim] PMH/Surg Hx/FS Hx/Imm Hx Endocrine/Hematology History: Reports: Hx Anticoagulant Therapy - coumadin for a fib, Hx Blood Disorders - chronic thrombocytopenia, Hx Thyroid Disease - juwan, Hx Anemia - HX OF Denies: Hx Diabetes Cardiovascular History: Reports: Hx Angina, Hx Congestive Heart Failure, Hx Coronary Artery Disease, Hx Hypercholesterolemia, Hx Hypertension, Other Cardiovascular Problems/Disorders - AFIB Denies: Hx Deep Vein Thrombosis, Hx Myocardial Infarction, Hx Pacemaker/ICD, Hx Valvular Heart Disease Respiratory History: Reports: Hx Asthma, Hx Chronic Obstructive Pulmonary Disease (COPD), Hx Pneumonia - Hospitalized from 10/14/14 - 10/25/14 and 04/26; 2016, Hx Seasonal Allergies, Other Respiratory Problems/Disorders - BILAT PNEUMONIA 10/25. PT WITH TB 1994 Denies: Hx Lung Cancer - 2L O2 at night - on 4L continuous since pneumonia January 2017, Hx Pulmonary Embolism GI History: Reports: Hx Gall Bladder Disease - cholecystectomy 1976, Hx Gastroesophageal Reflux Disease - CONTROL WITH MED, Hx Ulcer, Other GI Disorders - partial gastrectomy 1972 Denies: Hx Gastrointestinal Bleed, Hx Urosepsis History: Reports: Other Problems/Disorders - hysterectomy breast biopsy left Denies: Hx Kidney Stones, Hx Renal Disease Musculoskeletal History: Reports: Hx Arthritis - BACK, KNEES, Hx Back Problems - laminectomy, Hx Orthopedic Injury - hx r arm, r ankle, toes, Other Musculoskeletal History - back surgery 1995 Sensory History: Reports: Hx Cataracts - removed, Hx Contacts or Glasses - READING GLASSES Denies: Hx Hearing Aid, Other Sensory Impairments Opthamlomology History: Reports: Hx Cataracts - removed, Hx Contacts or Glasses - READING GLASSES Denies: Other Sensory Impairments Neurological History: Reports: Other Neuro Impairments/Disorders - PERIPHERAL NEUROPATHY BILAT Denies: Hx Dementia, Hx Developmental Delay, Hx Migraine, Hx Seizures, Hx Transient Ischemic Attacks (TIA) Psychiatric History: Reports: Hx Anxiety - CONTROL WITH MED, Hx Depression - CONTROL WITH MED Denies: Hx Panic Disorder, Hx Schizophrenia, Hx Bipolar Disorder, Hx Suicide Attempt, Hx of Violent Episodes Against Others - Cancer History Cancer Type, Location and Year: breast lumpectomy, no treatment Hx Chemotherapy: No Hx Radiation Therapy: No - Surgical History Surgery Procedure, Year, and Place: T&A A CHILD. groin abscess A CHILD. appendectomy, cholecystectomy, [facility]. hysterectomy partial, [facility]. thyroidectomy partial, [facility]. L breast and R lung biopsies, [facility]. 1995 laminectomy L4,5, [facility]. gastrectomy partial 1972;. Carpal Tunnel Surgery Right Wrist by Dr. Chauhan in July 2015. BILAT CATARACTS, [facility]. right lymph node bx 1994, [facility]. left leg surgery- vein 2003 [facility]. Left Breast lumpectomy 1982, [facility] Hx Anesthesia Reactions: No - Immunization History Date of Tetanus Vaccine: 2013 Date of Influenza Vaccine: Fall 2012 Infectious Disease History: No Infectious Disease History: Reports: Hx Tuberculosis - , per pt, History Other Infectious Disease - hx e-coli sepsis and pneumonia February 2017 Denies: Hx Clostridium Difficile, Hx Hepatitis, Hx Human Immunodeficiency Virus (HIV), Hx of Known/Suspected MRSA, Traveled Outside the [place] in Last 30 Days - Family History Known Family History: Positive: None, Cardiac Disease - father - CHF, brother - aneurysm Negative: Hypertension, Diabetes Family History: R & N/C - Social History Alcohol Use: None Hx Substance Use: No Substance Use Type: Reports: None Substance Use Comment - Amount & Last Used: oxycodone and oxymorphone Hx Tobacco Use: Yes Smoking Status (MU): Former Smoker Type: Cigarettes Amount Used/How Often: 2 packs per week Length of Time of Smoking/Using Tobacco: ON AND OFF 45 YRS Have You Smoked in the Last Year: No Review of Systems Negative: Fever Negative: Chest Pain Negative: Shortness Of Breath Positive: Other - right sided abdominal mass All Other Systems Reviewed And Are Negative: Yes Physical Exam Triage Information Reviewed: Yes Vital Signs On Initial Exam: Initial Vitals Temp Pulse Resp BP Pulse Ox 98.5 F 66 15 108/51 94 05/27/17 14:35 05/27/17 14:35 05/27/17 14:35 05/27/17 14:35 05/27/17 14:35 Vital Signs Reviewed: Yes Appearance: Positive: Well-Appearing Skin: Positive: Warm, Dry Head/Face: Positive: Normal Head/Face Inspection Eyes: Positive: Normal, Conjunctiva Clear Respiratory/Lung Sounds: Positive: Clear to Auscultation, Breath Sounds Present Cardiovascular: Positive: Normal, RRR Abdomen Description: Positive: Nontender, Soft Bowel Sounds: Positive: Present Musculoskeletal: Positive: Normal Neurological: Positive: Normal Psychiatric: Positive: Normal - Candy Coma Scale Coma Scale Total: 15 Diagnostics - Vital Signs Vital Signs Temp Pulse Resp BP Pulse Ox 05/27/17 14:35 98.5 F 66 15 108/51 94 - Laboratory Result Diagrams: 05/27/17 16:20 05/27/17 16:20 Lab Statement: Any lab studies that have been ordered have been reviewed, and results considered in the medical decision making process. - CT abd CT Interpretation: Positive (See Comments) - IMPRESSION: 1. The constellation of findings is most consistent with small bowel ileus or low-grade partial small bowel obstruction. No discrete transition point or obstructing lesion evident. 2. Negative for ascites or free air. No peritoneal inflammatory change evident. 3. Chronic intra and extrahepatic biliary dilatation unchanged from the May 04, 2015 exam without visualized common bile duct stone or obstructing lesion. Post cholecystectomy. 4. Stability of the noted splenic lesion compared with the 2004 exam consistent with benign etiology statistically most likely a posttraumatic cyst. 5. Negative for lymphadenopathy or organomegaly. CT Interpretation Completed By: Radiologist Re-Evaluation - Re-Evaluation First Eval Re-Evaluation Time: 18:26 Change: Unchanged Comment: still not abdominal pain, nausea or vomiting Abdominal Pain Fem Course/Dx - Course Course Of Treatment: 87F presents with mass in right side of abdomen for two days. Her home nurse found it and called her primary who recommended that she come here. She states that is it not causing her any pain. She denies any vomiting, nausea or diarrhea. She has history of chronic constipation that is unchanged. She has had her appendix, gallbladder, uterus, and part of her stomach removed. She has no complaints. no recent weight loss or fever. on exam do not feel mass, abdomen soft nontender. do to multiple surgeries will make sure not hernia and will get CT. labs same as previous. denies any uti symptoms so will not treat at this time. CT shows potential ileus or partial SBO. patient clinical not showing any symptoms of such. discussed with dr rae and agrees safe to discharge. abdomen is nontender on exam at discharge. patient wants to be discharge home and warned of signs to return to ED for. patient understand and agrees with plan. - Diagnoses Differential Diagnosis: Positive: Bowel Obstruction, Other - hernia, cancer, Provider Diagnoses: Constipation Discharge - Discharge Plan Condition: Good Disposition: HOME Patient Education Materials: Bowel Obstruction (ED) Referrals: Jose Thompson MD [Primary Care Provider] - Additional Instructions: CT is potential showing a partial small bowel obstruction although clinical you are not showing signs as such Follow a clear liquid diet for next 2 days to rest bowels Follow up with primary within 5 days Return to ED if develop persistent vomiting, abdominal pain, or any new or worsening symptoms
[2017-05-27] MEDS ORDERED: NS 0.9% 1000 ML* 1,000 ML IV ONE (17:05)
--- NOTE | 2017-05-27 18:09 | RAD ---
INDICATION: RIGHT side abdominal lump. COMPARISON: March 04, 2017 and May 04, 2015 CT exams. TECHNIQUE: Multidetector CT images were obtained from the lung bases to the ischial tuberosities with 85 mL Visipaque 320 IV and oral contrast. Multiplanar reformation. REPORT: Visualized lung bases are remarkable for emphysema and mild prominence of interstitial markings as well as minimal dependent atelectasis. Cardiomegaly. Intra and extrahepatic biliary dilatation with the common bile duct measuring up to 2.4 cm diameter is unchanged compared with the prior CT. No common bile duct stone or mass visualized. Post cholecystectomy. No focal hepatic lesions evident. Advanced atrophy of the pancreas. 4.3 x 3.2 cm chronic multilocular sharply circumscribed low density lesion at the caudal aspect of the spleen. Small hiatal hernia without additional abnormality of the upper GI. Large volume of stool in the colon without significant rectal distention. Fecalization of the bowel contents at the distal and terminal ileum. Enteric contrast extends to the distal jejunum. The jejunum is dilated up to 3.2 cm. No focal transition point evident. While the appendix is not discretely visualized, there is no inflammatory change in the right lower quadrant or region of the tip of the cecum to suggest presence of an acute inflammatory process. Negative for ascites, free air, hernias. Normal adrenal glands. Mild to moderate bilateral renal atrophy. Symmetric nephrograms and pyelograms. No suspicious focal renal lesions or hydronephrosis. Unremarkable nondilated ureters. Multiple pelvic phleboliths. Unremarkable partially distended urinary bladder. The uterus is not visualized. Unremarkable adnexal regions. Negative for lymphadenopathy. Atherosclerotic calcification of normal diameter abdominal aorta and iliac arteries. Physiologic distention of the IVC. Negative for suspicious focal osseous lesions. IMPRESSION: 1. The constellation of findings is most consistent with small bowel ileus or low-grade partial small bowel obstruction. No discrete transition point or obstructing lesion evident. 2. Negative for ascites or free air. No peritoneal inflammatory change evident. 3. Chronic intra and extrahepatic biliary dilatation unchanged from the May 04, 2015 exam without visualized common bile duct stone or obstructing lesion. Post cholecystectomy. 4. Stability of the noted splenic lesion compared with the 2004 exam consistent with benign etiology statistically most likely a posttraumatic cyst. 5. Negative for lymphadenopathy or organomegaly.
== END 2017-05-27 18:35 | disposition home or self-care (01) ==
LOC: ED 14:26
DX: K59.00 Constipation, unspecified (principal); R10.9 Unspecified abdominal pain; Z87.891 Personal history of nicotine dependence; Z79.01 Long term (current) use of anticoagulants
CPT/HCPCS: 36415; 74177; 80053; 81003; 81015; 85025; 87086; 96360; 99282; Q9967

== ENCOUNTER 2017-06-23 09:00 | Emergency (ER) | payer MEDICARE, BC ==
--- NOTE | 2017-06-23 10:21 | ED ---
Back Pain - HPI Summary HPI Summary: 87 female presents to ED [facility] with complaints of right leg and right back pain that began after a mechanical fall on 06/18. Patient states she was attempting to get out of bed, twisted and fall hitting lower right back on . States she thought it was getting better however it worsened this morning upon waking up. Denies hitting her head and no LOC. Has been taking her oxycodone and morphine as prescribed at home for pain, which does give her relief. Took both before arrival to ED. IS currently on blood thinners for her a fib. Denies urinary complaints, nausea, vomiting, fever/chills. States pain radiates from her back into her buttock and right thigh. Denies weakness, numbness and tingling. Movement and use makes pain worse. No bladder/bowel incontinence or saddle anesthesia. Is able to bear weight. - History of Current Complaint Chief Complaint: EDExtremityLower Stated Complaint: FALL Hx Obtained From: Patient Onset/Duration: Sudden Onset, Lasting Days, Still Present, Worse Since Onset/Duration: Started Days Ago, Traumatic, Still Present, Worse Since Timing: Constant Back Pain Location: Is Discrete @ - right lumbar back and right thigh Severity Initially: Mild Severity Currently: Moderate Pain Intensity: 6 Pain Scale Used: 0-10 Numeric Character: Sharp - with movement, Dull, Aching Aggravating Symptom(s): Movement, Walking Alleviating Symptom(s): Rest, Position, Other - prescribed narcotics Associated Signs And Symptoms: Positive: Bruising, Flank Pain - right, Pain with Weight Bearing. Negative: Swelling, Redness, Weakness, Numbness, Tingling , Abdominal Pain, Bladder Incontinence, Bowel Incontinence - Allergies/Home Medications Allergies/Adverse Reactions: Allergies Allergy/AdvReac Type Severity Reaction Status Date / Time Ciprofloxacin [From Cipro] Allergy Unknown Hives Verified 05/05/17 14:43 Codeine Allergy Unknown Hives Verified 05/05/17 14:43 Fentanyl Allergy Unknown Difficulty Verified 05/05/17 14:43 Breathing Penicillins [PCN] Allergy Unknown Hives Verified 05/05/17 14:43 Sulfamethoxazole AdvReac Intermediate Nausea Verified 05/05/17 14:43 w/Trimethoprim [From Bactrim] PMH/Surg Hx/FS Hx/Imm Hx Endocrine/Hematology History: Reports: Hx Anticoagulant Therapy - coumadin for a fib, Hx Blood Disorders - chronic thrombocytopenia, Hx Thyroid Disease - juwan, Hx Anemia - HX OF Denies: Hx Diabetes Cardiovascular History: Reports: Hx Angina, Hx Congestive Heart Failure, Hx Coronary Artery Disease, Hx Hypercholesterolemia, Hx Hypertension, Other Cardiovascular Problems/Disorders - AFIB Denies: Hx Deep Vein Thrombosis, Hx Myocardial Infarction, Hx Pacemaker/ICD, Hx Valvular Heart Disease Respiratory History: Reports: Hx Asthma, Hx Chronic Obstructive Pulmonary Disease (COPD), Hx Pneumonia - Hospitalized from 10/14/14 - 10/25/14 and 04/26; 2016, Hx Seasonal Allergies, Other Respiratory Problems/Disorders - BILAT PNEUMONIA 10/25. PT WITH TB 1994 Denies: Hx Lung Cancer - 2L O2 at night - on 4L continuous since pneumonia January 2017, Hx Pulmonary Embolism GI History: Reports: Hx Gall Bladder Disease - cholecystectomy 1976, Hx Gastroesophageal Reflux Disease - CONTROL WITH MED, Hx Ulcer, Other GI Disorders - partial gastrectomy 1972 Denies: Hx Gastrointestinal Bleed, Hx Urosepsis History: Reports: Other Problems/Disorders - hysterectomy breast biopsy left Denies: Hx Kidney Stones, Hx Renal Disease Musculoskeletal History: Reports: Hx Arthritis - BACK, KNEES, Hx Back Problems - laminectomy, Hx Orthopedic Injury - hx r arm, r ankle, toes, Other Musculoskeletal History - back surgery 1995 Sensory History: Reports: Hx Cataracts - removed, Hx Contacts or Glasses - READING GLASSES Denies: Hx Hearing Aid, Other Sensory Impairments Opthamlomology History: Reports: Hx Cataracts - removed, Hx Contacts or Glasses - READING GLASSES Denies: Other Sensory Impairments Neurological History: Reports: Other Neuro Impairments/Disorders - PERIPHERAL NEUROPATHY BILAT Denies: Hx Dementia, Hx Developmental Delay, Hx Migraine, Hx Seizures, Hx Transient Ischemic Attacks (TIA) Psychiatric History: Reports: Hx Anxiety - CONTROL WITH MED, Hx Depression - CONTROL WITH MED Denies: Hx Panic Disorder, Hx Schizophrenia, Hx Bipolar Disorder, Hx Suicide Attempt, Hx of Violent Episodes Against Others - Cancer History Cancer Type, Location and Year: breast lumpectomy, no treatment Hx Chemotherapy: No Hx Radiation Therapy: No - Surgical History Surgery Procedure, Year, and Place: T&A A CHILD. groin abscess A CHILD. appendectomy, cholecystectomy, [facility]. hysterectomy partial, [facility]. thyroidectomy partial, [facility]. L breast and R lung biopsies, [facility]. 1996 laminectomy L4,5, [facility]. gastrectomy partial 1972;. Carpal Tunnel Surgery Right Wrist by Dr. Chauhan in July 2015. BILAT CATARACTS, [facility] [place]. right lymph node bx 1994, [facility]. [place] [facility] [place], [facility] [place] Hx Anesthesia Reactions: No - Immunization History Date of Tetanus Vaccine: 2013 Date of Influenza Vaccine: Fall 2012 Immunizations Up to Date: Yes Infectious Disease History: No Infectious Disease History: Reports: Hx Tuberculosis - , per pt, History Other Infectious Disease - hx e-coli sepsis and pneumonia February 2017 Denies: Hx Clostridium Difficile, Hx Hepatitis, Hx Human Immunodeficiency Virus (HIV), Hx of Known/Suspected MRSA, Traveled Outside the [place] in Last 30 Days - Family History Known Family History: Positive: None, Cardiac Disease - father - CHF, brother - aneurysm Negative: Hypertension, Diabetes Family History: R & N/C - Social History Alcohol Use: None Hx Substance Use: No Substance Use Type: Reports: None Substance Use Comment - Amount & Last Used: oxycodone and oxymorphone Hx Tobacco Use: Yes Smoking Status (MU): Former Smoker Type: Cigarettes Amount Used/How Often: 2 packs per week Length of Time of Smoking/Using Tobacco: ON AND OFF 45 YRS Have You Smoked in the Last Year: No Review of Systems Constitutional: Negative Cardiovascular: Negative Respiratory: Negative Gastrointestinal: Negative Genitourinary: Negative Positive: Arthralgia, Myalgia - right lower back and right leg Positive: Bruising Neurological: Negative All Other Systems Reviewed And Are Negative: Yes Physical Exam Triage Information Reviewed: Yes Vital Signs On Initial Exam: Initial Vitals Temp Pulse Resp BP Pulse Ox 97.9 F 99 14 133/69 98 06/23/17 09:08 06/23/17 09:08 06/23/17 09:08 06/23/17 09:08 06/23/17 09:08 Vital Signs Reviewed: Yes Appearance: Positive: Well-Appearing - patient sleeping comfortably upon arrival , No Pain Distress, Well-Nourished Skin: Positive: Warm, Skin Color Reflects Adequate Perfusion, Dry, Other - contusion noted on right flank around T12-L2 region no significant edema noted. Negative: Numb, Cyanosis @, Pale, Erythema @ Head/Face: Positive: Normal Head/Face Inspection. Negative: Scalp Eyes: Positive: Conjunctiva Clear ENT: Positive: Hearing grossly normal Neck: Positive: Supple, Nontender Respiratory/Lung Sounds: Positive: Clear to Auscultation, Breath Sounds Present. Negative: Rales, Rhonchi, Wheezes Cardiovascular: Positive: Normal, RRR, Pulses are Symmetrical in both Upper and Lower Extremities - 2+ radial and pedal b/l Abdomen Description: Positive: Nontender, No Organomegaly, Soft. Negative: CVA Tenderness (R), CVA Tenderness (L), Distended, Guarding Bowel Sounds: Positive: Present Musculoskeletal: Positive: Normal, Strength/ROM Intact, Pain @ - on palpation of right back paraspinal muscles flank area from T12-L3 with contusion noted, Other - no pain in RLE on palpation no sign of crepitus or obvious trauma. no step off. has good ROM. Negative: Interruption @, Abnormal @, Edema Left, Edema Right Neurological: Positive: Normal, Sensory/Motor Intact, Alert, Oriented to Person Place, Time, NV Bundle Intact Distally - Candy Coma Scale Best Eye Response: 4 - Spontaneous Best Motor Response: 6 - Obeys Commands Best Verbal Response: 5 - Oriented Coma Scale Total: 15 Diagnostics - Vital Signs Vital Signs Temp Pulse Resp BP Pulse Ox 06/23/17 09:08 97.9 F 99 14 133/69 98 - Laboratory Result Diagrams: 06/23/17 10:30 06/23/17 10:30 Lab Statement: Any lab studies that have been ordered have been reviewed, and results considered in the medical decision making process. - Radiology femur Xray Interpretation: No Acute Changes - 1. OSTEOPENIA. 2. OSTEOARTHRITIS. 3. NO ACUTE OSSEOUS INJURY. THE DEGREE OF OSTEOPENIA MAY MAKE A NONDISPLACED FRACTURE RADIOGRAPHICALLY OCCULT. IF SYMPTOMS PERSIST, RECOMMEND REPEAT IMAGING. Radiology Interpretation Completed By: Radiologist - and myself - CT chest, abd, pelvis CT Interpretation: No Acute Changes - In the superior segment of the right upper lobe there is density likely representing scarring or atelectasis which has improved since prior exam of March 04, 2017. Emphysematous changes are noted with minimal bibasilar atelectasis. No pneumothorax is noted. There is a dilated common duct which has been present since previous exam measuring up to 25 mm. Small mediastinal lymph nodes are noted unchanged from previous exam. Splenic cyst is unchanged. Right adrenal nodule unchanged from previous exam. 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 CT Interpretation Completed By: Radiologist - and myself Re-Evaluation - Re-Evaluation First Eval Re-Evaluation Time: 12:30 Change: Improved - patient sleeping comfortably upon arrival. had relief after medication administration updated on imaging results and plan of action. Back Pain Course/Dx - Course Course Of Treatment: CT chest, abd and pelvis obtained due to RANJITH and mechanical fall, on blood thinners, and due to patient's age. was negative. also obtained right femur xray which was negative. no signs of acute njury at this time. appears to be suffering from a contusion/muscle strain from fall beginning in Lumbar back and radiating into right hip/leg. given lidocaine patch and muscle relaxer. continue pain medication as directed, only as needed. instructed to remove patch in 12 hours and she could obtain some at the store if it helps. muscle relaxer at bedtime only as needed and if it helps. no other concerns at this time. heat, ice and rest. follow up pcp. normal vitals and PE otherwise. - Diagnoses Differential Diagnosis/HQI/PQRI: Positive: Fracture, Strain, Sprain Provider Diagnoses: Low back strain, Contusion, Back pain Discharge - Discharge Plan Condition: Stable Disposition: HOME Patient Education Materials: Low Back Strain (ED) Referrals: Joes Thompson MD [Primary Care Provider] - Additional Instructions: Continue taking pain medication as directed to help with pain. Rest and apply heat. Remove lidoderm patch in 12 hours, tomorrow around noon. Follow up with PCP in 5-7 days to ensure improvement. Any new or worsening symptoms please return to ED and seek medical attention immediately.
[2017-06-23 11:08] LABS: Hematocrit 32 % (35-47); Mean Corpuscular HGB Conc 32 g/dl (31-36); Mean Corpuscular Hemoglobin 29 pg (27-31); Mean Corpuscular Volume 90 fL (80-97); Mean Platelet Volume 8 um3 (7.4-10.4); Red Blood Count 3.52 10^6/ul (4.0-5.4); Red Cell Distribution Width 17 % (10.5-15); White Blood Count 5.9 10^3/ul (3.5-10.8)
[2017-06-23 11:12] LABS: Albumin 3.2 g/dL (3.2-5.2); BUN/Creatinine Ratio 25.4 (8-20); EGFR African American 53.6 (>60); EGFR Non-African American 41.7 (>60); Globulin 3.5 g/dL (2-4); Potassium 4.5 mmol/L (3.5-5.0); Total Bilirubin 0.5 mg/dL (0.2-1.0); Total Protein 6.7 g/dL (6.4-8.9)
--- NOTE | 2017-06-23 11:18 | RAD ---
Indication: Fall, right flank and hip pain on Coumadin. CT of the chest, abdomen and pelvis was performed without oral or IV contrast administration. Coronal and sagittal reconstructed images were obtained. Comparison is made with previous exam dated March 04, [address] of May 04, 2017. Inferior thyroid lobes are unremarkable. Precarinal and pretracheal lymph nodes are noted measuring 5 mm. No hilar adenopathy is noted. Heart demonstrates no pericardial effusion. Right lower lobe mass measures approximately 14 mm likely represent atelectasis or scarring. Prior exam demonstrates a cavitary mass in this area and appears to be nearly resolved vein.. Bibasilar atelectasis is noted. Left lower lobe scarring is noted. The heart demonstrates no pericardial effusion. No pneumothorax is noted. No rib fractures are definitively identified. CT of the abdomen and pelvis demonstrates patient to be status post cholecystectomy. There is a markedly dilated common duct measuring up to 2.5 cm extending to the ampulla. Ampullary stenosis cannot BE excluded. There is intrahepatic duct dilatation noted. There is presumed cholecystectomy with surgical clips noted. These findings are unchanged from prior exam. The spleen is normal in size. There is a cyst in the spleen measuring up to 3.7 cm which may represent residual from prior hematoma. The pancreas demonstrates no mass. No pancreatic duct dilatation is noted. No adrenal lesions are noted. Right adrenal nodule is noted which is stable since previous exam measuring up to 18 mm. Left adrenal is unremarkable. The kidneys demonstrate no hydronephrosis. No retroperitoneal lymphadenopathy is noted. The colon is filled with stool. The urinary bladder is otherwise unremarkable. 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 No hernia is noted. The patient is status post hysterectomy. No free fluid is identified. IMPRESSION: In the superior segment of the right upper lobe there is density likely representing scarring or atelectasis which has improved since prior exam of March 04, 2017. Emphysematous changes are noted with minimal bibasilar atelectasis. No pneumothorax is noted. There is a dilated common duct which has been present since previous exam measuring up to 25 mm. Small mediastinal lymph nodes are noted unchanged from previous exam. Splenic cyst is unchanged. Right adrenal nodule unchanged from previous exam. 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
--- NOTE | 2017-06-23 11:22 | RAD ---
HISTORY: Right femur pain, fall COMPARISONS: None relevant VIEWS: 4, Frontal and lateral views of the right femur FINDINGS: BONE DENSITY: There is diffuse osteopenia. BONES: There is no displaced fracture. JOINTS: There is mild osteoarthritis of the right hip and right knee ALIGNMENT: There is no dislocation. SOFT TISSUES: Unremarkable. OTHER FINDINGS: None. IMPRESSION: 1. OSTEOPENIA. 2. OSTEOARTHRITIS. 3. NO ACUTE OSSEOUS INJURY. THE DEGREE OF OSTEOPENIA MAY MAKE A NONDISPLACED FRACTURE RADIOGRAPHICALLY OCCULT. IF SYMPTOMS PERSIST, RECOMMEND REPEAT IMAGING.
[2017-06-23] MEDS ORDERED: Cyclobenzaprine TAB* 10 MG PO ONE (11:55)
[2017-06-23] MEDS ORDERED: Lidocaine PATCH 5%* 1 PATCH ONE (12:51)
[2017-06-23] MEDS ORDERED: Lidocaine PATCH 5%* 1 PATCH TRANSDERM SCH (13:00)
[2017-06-23 13:03] VITALS: BP 116/73
[2017-06-23] MEDS ORDERED: Lidocaine Patch REMOVE* 1 NOTE MISC SCH (21:00)
== END 2017-06-23 13:01 | disposition home or self-care (01) ==
LOC: ED 09:00
DX: S39.012A Strain of muscle, fascia and tendon of lower back, initial encounter (principal); S70.11XA Contusion of right thigh, initial encounter; W19.XXXA Unspecified fall, initial encounter; Y93.89 Activity, other specified; Y92.9 Unspecified place or not applicable; I48.91 Unspecified atrial fibrillation; Z79.01 Long term (current) use of anticoagulants; Z88.5 Allergy status to narcotic agent; K21.9 Gastro-esophageal reflux disease without esophagitis; D69.6 Thrombocytopenia, unspecified; E07.9 Disorder of thyroid, unspecified; I50.9 Heart failure, unspecified; J44.9 Chronic obstructive pulmonary disease, unspecified
CPT/HCPCS: 36415; 71250; 74176; 80053; 85025; 85610; 99283; A9270-GY

== ENCOUNTER 2017-07-15 15:19 | Emergency (ER) | payer MEDICARE, BC ==
--- NOTE | 2017-07-15 21:41 | RAD ---
INDICATION: Cough. COPD. History of congestive heart failure. COMPARISON: June 23, 2017 CT. TECHNIQUE: Dual energy PA and routine lateral views of the chest were obtained. REPORT: Elevated lung volumes and both diffuse mild prominence of the interstitial markings and patchy rarefaction of the mid to upper lung zone interstitial markings. Gross resolution of previous consolidation at the medial RIGHT upper lung zone. No focal pulmonary lesion, compelling alveolar consolidation, pleural effusion, pneumothorax. Upper normal heart size. Unremarkable central pulmonary vasculature. Moderately tortuous descending thoracic aorta. Gallbladder fossa level surgical clips. IMPRESSION: Stigmata of obstructive lung disease. No acute pulmonary or cardiac process evident.
--- NOTE | 2017-07-15 21:50 | ED ---
Enrique Xie Tecjoon, scribed for Armando Hernandez MD on 07/15/17 at 2015 . Shortness of Breath - HPI Summary HPI Summary: This patient is a 87 year old female presenting to [facility] accompanied by friends with a chief complaint of productive cough since yesterday. The patient states that her cough is bringing up light green phlegm. Patient states that she has had sinus pressure and rhinorrhea for about a week. The illness does not affect her ability to function normally. Symptoms aggravated by nothing. Symptoms alleviated by nothing. Patient additionally reports SOB, rhinorrhea, sinus pressure. Patient denies fever, chills. - History of Current Complaint Chief Complaint: EDShortnessOfBreath Time Seen by Provider: 07/15/17 20:05 Hx Obtained From: Patient Onset/Duration: Gradual Onset, Lasting Days - 1, Still Present Timing: Constant Current Severity: Moderate Aggrevating Factors: Nothing Alleviating Factors: Nothing Associated Signs & Symptoms: Negative - fever, chills, Cough (Productive) - green phlegm, Nasal Congestion - Allergy/Home Medications Allergies/Adverse Reactions: Allergies Allergy/AdvReac Type Severity Reaction Status Date / Time Ciprofloxacin [From Cipro] Allergy Unknown Hives Verified 07/02/17 14:43 Codeine Allergy Unknown Hives Verified 07/02/17 14:43 Fentanyl Allergy Unknown Difficulty Verified 07/02/17 14:43 Breathing Penicillins [PCN] Allergy Unknown Hives Verified 07/02/17 14:43 Sulfamethoxazole AdvReac Intermediate Nausea Verified 07/02/17 14:43 w/Trimethoprim [From Bactrim] PMH/Surg Hx/FS Hx/Imm Hx Previously Healthy: No Endocrine/Hematology History: Reports: Hx Anticoagulant Therapy - coumadin for a fib, Hx Blood Disorders - chronic thrombocytopenia, Hx Thyroid Disease - juwan, Hx Anemia - HX OF Denies: Hx Diabetes Cardiovascular History: Reports: Hx Angina, Hx Congestive Heart Failure, Hx Coronary Artery Disease, Hx Hypercholesterolemia, Hx Hypertension, Other Cardiovascular Problems/Disorders - AFIB Denies: Hx Deep Vein Thrombosis, Hx Myocardial Infarction, Hx Pacemaker/ICD, Hx Valvular Heart Disease Respiratory History: Reports: Hx Asthma, Hx Chronic Obstructive Pulmonary Disease (COPD), Hx Pneumonia - Hospitalized from 10/14/14 - 10/25/14 and 04/26; 2016, Hx Seasonal Allergies, Other Respiratory Problems/Disorders - BILAT PNEUMONIA 10/25. PT WITH TB 1994 Denies: Hx Lung Cancer - 2L O2 at night - on 4L continuous since pneumonia January 2017, Hx Pulmonary Embolism GI History: Reports: Hx Gall Bladder Disease - cholecystectomy 1976, Hx Gastroesophageal Reflux Disease - CONTROL WITH MED, Hx Ulcer, Other GI Disorders - partial gastrectomy 1972 Denies: Hx Gastrointestinal Bleed, Hx Urosepsis History: Reports: Other Problems/Disorders - hysterectomy breast biopsy left Denies: Hx Kidney Stones, Hx Renal Disease Musculoskeletal History: Reports: Hx Arthritis - BACK, KNEES, Hx Back Problems - laminectomy, Hx Orthopedic Injury - hx r arm, r ankle, toes, Other Musculoskeletal History - back surgery 1995 Sensory History: Reports: Hx Cataracts - removed, Hx Contacts or Glasses - READING GLASSES Denies: Hx Hearing Aid, Other Sensory Impairments Opthamlomology History: Reports: Hx Cataracts - removed, Hx Contacts or Glasses - READING GLASSES Denies: Other Sensory Impairments Neurological History: Reports: Other Neuro Impairments/Disorders - PERIPHERAL NEUROPATHY BILAT Denies: Hx Dementia, Hx Developmental Delay, Hx Migraine, Hx Seizures, Hx Transient Ischemic Attacks (TIA) Psychiatric History: Reports: Hx Anxiety - CONTROL WITH MED, Hx Depression - CONTROL WITH MED Denies: Hx Panic Disorder, Hx Schizophrenia, Hx Bipolar Disorder, Hx Suicide Attempt, Hx of Violent Episodes Against Others - Cancer History Cancer Type, Location and Year: breast lumpectomy, no treatment Hx Chemotherapy: No Hx Radiation Therapy: No - Surgical History Surgery Procedure, Year, and Place: T&A A CHILD. groin abscess A CHILD. appendectomy, cholecystectomy, [facility]. hysterectomy partial, [facility]. thyroidectomy partial, [facility]. L breast and R lung biopsies, [facility]. 1995 laminectomy L4,5, [facility]. gastrectomy partial 1972;. Carpal Tunnel Surgery Right Wrist by Dr. Chauhan in July 2015. BILAT CATARACTS, [facility]. right lymph node bx 1994, [facility]. left leg surgery- vein 2003 [facility]. Left Breast lumpectomy 1982, [facility] Hx Anesthesia Reactions: No - Immunization History Date of Tetanus Vaccine: 2013 Date of Influenza Vaccine: Fall 2012 Infectious Disease History: No Infectious Disease History: Reports: Hx Tuberculosis - , per pt, History Other Infectious Disease - hx e-coli sepsis and pneumonia February 2017 Denies: Hx Clostridium Difficile, Hx Hepatitis, Hx Human Immunodeficiency Virus (HIV), Hx of Known/Suspected MRSA, Traveled Outside the [place] in Last 30 Days - Family History Known Family History: Positive: Cardiac Disease - father - CHF, brother - aneurysm Negative: Hypertension, Diabetes Family History: R & N/C - Social History Lives: Alone Alcohol Use: None Hx Substance Use: No Substance Use Type: Reports: None Substance Use Comment - Amount & Last Used: oxycodone and oxymorphone Hx Tobacco Use: Yes Smoking Status (MU): Former Smoker Type: Cigarettes Amount Used/How Often: 2 packs per week Length of Time of Smoking/Using Tobacco: ON AND OFF 45 YRS Have You Smoked in the Last Year: No Review of Systems Negative: Fever, Chills Positive: Nasal Discharge, Other - sinus pressure Positive: Shortness Of Breath, Cough - productive cough (green phlegm) All Other Systems Reviewed And Are Negative: Yes Physical Exam Triage Information Reviewed: Yes Vital Signs On Initial Exam: Initial Vitals Temp Pulse Resp BP Pulse Ox 97.4 F 66 18 127/62 96 07/15/17 15:25 07/15/17 15:25 07/15/17 15:25 07/15/17 15:25 07/15/17 15:25 Vital Signs Reviewed: Yes Appearance: Positive: Well-Appearing, No Pain Distress Skin: Positive: Warm, Skin Color Reflects Adequate Perfusion Head/Face: Positive: Normal Head/Face Inspection Eyes: Positive: Normal, EOMI ENT: Positive: Normal ENT inspection Neck: Positive: Supple, Nontender Respiratory/Lung Sounds: Positive: Clear to Auscultation, Breath Sounds Present Cardiovascular: Positive: RRR. Negative: Murmur Abdomen Description: Positive: Nontender Musculoskeletal: Positive: Strength/ROM Intact Neurological: Positive: Sensory/Motor Intact, Alert, Oriented to Person Place, Time, CN Intact II-III Psychiatric: Positive: Normal - [place] Coma Scale Best Eye Response: 4 - Spontaneous Best Motor Response: 6 - Obeys Commands Best Verbal Response: 5 - Oriented Diagnostics - Vital Signs Vital Signs Temp Pulse Resp BP Pulse Ox 07/15/17 16:30 97.4 F 68 18 127/66 98 07/15/17 15:25 97.4 F 66 18 127/62 96 - Laboratory Lab Statement: Any lab studies that have been ordered have been reviewed, and results considered in the medical decision making process. Course/Dx - Course Course Of Treatment: 87 yr old female who appear in no distress with clear lungs and neg chest xray. DC home FU with PMD. - Diagnoses Provider Diagnoses: Cough Discharge - Discharge Plan Condition: Good Disposition: HOME Patient Education Materials: COPD (Chronic Obstructive Pulmonary Disease) (ED) Referrals: Jose Thompson MD [Primary Care Provider] - 2 Days The documentation as recorded by the Enrique lynne Tecjoon accurately reflects the service I personally performed and the decisions made by David valentin Walter, MD.
--- NOTE | 2017-07-15 22:03 | ED ---
Enrique Xie Tecjoon, scribed for Armando Hernandez MD on 07/15/17 at 2159 . Progress - Progress Note Progress Note: CXR reveals, per radiologist, IMPRESSION: Stigmata of obstructive lung disease. No acute pulmonary or cardiac process evident. ED physician has reviewed this radiology report. Course/Dx - Course Course Of Treatment: 87 yr old female who appear in no distress with clear lungs and neg chest xray. DC home FU with PMD. - Diagnoses Provider Diagnoses: Cough The documentation as recorded by the Enrique lynne Tecjoon accurately reflects the service I personally performed and the decisions made by David valentin Walter, MD.
[2017-07-15 22:40] VITALS: BP 122/69
== END 2017-07-15 23:00 | disposition home or self-care (01) ==
LOC: ED 15:19
DX: R05 Cough (principal); R06.02 Shortness of breath; R09.81 Nasal congestion; Z79.01 Long term (current) use of anticoagulants; Z86.79 Personal history of other diseases of the circulatory system; Z87.09 Personal history of other diseases of the respiratory system; Z87.19 Personal history of other diseases of the digestive system; Z87.891 Personal history of nicotine dependence
CPT/HCPCS: 71046; 87502; 99282

== ENCOUNTER 2017-09-18 14:23 | Emergency (ER) | payer MEDICARE, BC ==
--- NOTE | 2017-09-18 16:35 | RAD ---
INDICATION: Bilateral lower extremity edema. COMPARISON: February 26, 2017 TECHNIQUE: Christian scale, color Doppler, and spectral analysis of the deep veins of the BILATERAL lower extremities. Vessel compression, phasicity, and augmentation assessed. REPORT: Magnitude of subcutaneous edema from the level of the knees distal limits assessment of the calf veins. The RIGHT common femoral, great saphenous, profunda femoral, femoral, and popliteal veins are patent. Negative for gross thrombosis of the paired posterior tibial and peroneal calf veins. The LEFT common femoral, great saphenous, profunda femoral, femoral, and popliteal veins are patent. Negative for gross thrombosis of the paired posterior tibial and peroneal calf veins. IMPRESSION: No evidence for RIGHT or LEFT lower extremity DVT.
[2017-09-18] MEDS ORDERED: Furosemide TAB* 20 MG PO ONE (16:52)
[2017-09-18 16:56] LABS: Urine Appearance Clear; Urine Blood 1+ (Negative); Urine Color Straw; Urine Ketones Negative (Negative); Urine Protein Negative (Negative); Urine Specific Gravity 1.006 (1.010-1.030); Urine Urobilinogen Negative (Negative)
[2017-09-18 17:10] LABS: EGFR Non-African American 36.5 (>60)
[2017-09-18 18:09] LABS: ABS Basophils 0 10^3/ul (0-0.2); ABS Eosinophils 0 10^3/ul (0-0.6); ABS Monocytes 0.4 10^3/ul (0-0.8); ABS Neutrophils 3.4 10^3/ul (1.5-7.7); ABS Nucleated RBC 0 10^3/ul; Eosinophil % 0.4 % (0-6); Hematocrit 34 % (35-47); Hemoglobin 10.8 g/dl (12.0-16.0); Lymphocyte % 20.3 % (25-47); Mean Corpuscular HGB Conc 32 g/dl (31-36); Mean Corpuscular Hemoglobin 28 pg (27-31); Mean Corpuscular Volume 86 fL (80-97); Mean Platelet Volume 11 um3 (7.4-10.4); Nucleated Red Blood Cells % 0.2; Platelet Count 118 10^3/ul (150-450); Red Blood Count 3.94 10^6/ul (4.0-5.4); Red Cell Distribution Width 19 % (10.5-15); White Blood Count 4.8 10^3/ul (3.5-10.8)
[2017-09-18 18:49] VITALS: BP 103/51
--- NOTE | 2017-09-19 09:19 | ED ---
Sharad Xie Angela, scribed for Armando Espinoza MD on 09/18/17 at 1520 . Lower Extremity - HPI Summary HPI Summary: This pt is a 87 y/o female presenting to [facility] referred by PCP c/o bilateral lower extremity pain and redness x2 days. Pt reports that her right leg is worse than the left. Pt notes she has some SOB. Daughter states the pt wounds on right leg have been weeping. Denies chest pain. Daughter states the pt had an appointment with her PCP today and was referred to come to the ED. Pt's wounds were dressed at her PCP's. PMHx includes COPD, CHF. - History of Current Complaint Chief Complaint: EDExtremityLower Stated Complaint: RT LEG PROBLEM Time Seen by Provider: 09/18/17 15:04 Hx Obtained From: Patient Mechanism Of Injury: Other - no trauma Onset of Pain: Days Onset/Duration: Still Present Severity Currently: Moderate Pain Intensity: 6 Pain Scale Used: 0-10 Numeric Timing: Constant, Lasting Days Location: Is Discrete @ - bilateral lower extremity Associated Signs And Symptoms: Positive: Swelling, Redness, Other - POS: SOB. NEG: chest pain Aggravating Factor(s): Nothing Alleviating Factor(s): Nothing Able to Bear Weight: Yes - Allergies/Home Medications Allergies/Adverse Reactions: Allergies Allergy/AdvReac Type Severity Reaction Status Date / Time fentanyl Allergy Unknown Difficulty Verified 09/02/17 13:33 Breathing sulfamethoxazole AdvReac Intermediate Nausea Verified 09/02/17 13:32 [From Bactrim] trimethoprim [From Bactrim] AdvReac Intermediate Nausea Verified 09/02/17 13:32 ciprofloxacin AdvReac Hives Verified 09/02/17 13:31 codeine AdvReac Hives Verified 09/02/17 13:31 Penicillins AdvReac Hives Verified 09/02/17 13:31 PMH/Surg Hx/FS Hx/Imm Hx Endocrine/Hematology History: Reports: Hx Anticoagulant Therapy - coumadin for a fib, Hx Blood Disorders - chronic thrombocytopenia, Hx Thyroid Disease - juwan, Hx Anemia - HX OF Denies: Hx Diabetes Cardiovascular History: Reports: Hx Angina, Hx Congestive Heart Failure, Hx Coronary Artery Disease, Hx Hypercholesterolemia, Hx Hypertension, Other Cardiovascular Problems/Disorders - AFIB Denies: Hx Deep Vein Thrombosis, Hx Myocardial Infarction, Hx Pacemaker/ICD, Hx Valvular Heart Disease Respiratory History: Reports: Hx Asthma, Hx Chronic Obstructive Pulmonary Disease (COPD), Hx Pneumonia - Hospitalized from 10/14/14 - 10/25/14 and 04/26; 2016, Hx Seasonal Allergies, Other Respiratory Problems/Disorders - BILAT PNEUMONIA 10/25. PT WITH TB 1994 Denies: Hx Lung Cancer - 2L O2 at night - on 4L continuous since pneumonia January 2017, Hx Pulmonary Embolism GI History: Reports: Hx Gall Bladder Disease - cholecystectomy 1976, Hx Gastroesophageal Reflux Disease - CONTROL WITH MED, Hx Ulcer, Other GI Disorders - partial gastrectomy 1972 Denies: Hx Gastrointestinal Bleed, Hx Urosepsis History: Reports: Other Problems/Disorders - hysterectomy breast biopsy left Denies: Hx Kidney Stones, Hx Renal Disease Musculoskeletal History: Reports: Hx Arthritis - BACK, KNEES, Hx Back Problems - laminectomy, Hx Orthopedic Injury - hx r arm, r ankle, toes, Other Musculoskeletal History - back surgery 1995 Sensory History: Reports: Hx Cataracts - removed, Hx Contacts or Glasses - READING GLASSES Denies: Hx Hearing Aid, Other Sensory Impairments Opthamlomology History: Reports: Hx Cataracts - removed, Hx Contacts or Glasses - READING GLASSES Denies: Other Sensory Impairments Neurological History: Reports: Other Neuro Impairments/Disorders - PERIPHERAL NEUROPATHY BILAT Denies: Hx Dementia, Hx Developmental Delay, Hx Migraine, Hx Seizures, Hx Transient Ischemic Attacks (TIA) Psychiatric History: Reports: Hx Anxiety - CONTROL WITH MED, Hx Depression - CONTROL WITH MED Denies: Hx Panic Disorder, Hx Schizophrenia, Hx Bipolar Disorder, Hx Suicide Attempt, Hx of Violent Episodes Against Others - Cancer History Cancer Type, Location and Year: breast lumpectomy was benign Hx Chemotherapy: No Hx Radiation Therapy: No - Surgical History Surgery Procedure, Year, and Place: T&A A CHILD. groin abscess A CHILD. appendectomy, cholecystectomy, [facility]. hysterectomy partial, [facility]. thyroidectomy partial, [facility]. L breast and R lung biopsies, [facility]. 1995 laminectomy L4,5, [facility]. gastrectomy partial 1972 r/t hemmorhaging ulcer;. Carpal Tunnel Surgery Right Wrist by Dr. Chauhan in July 2015. BILAT CATARACTS, [facility]. right lymph node bx 1994, [facility]. left leg [facility]- vein 2003 [facility]. 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, per pt, History Other Infectious Disease - hx e-coli sepsis and pneumonia February 2017 Denies: Hx Clostridium Difficile, Hx Hepatitis, Hx Human Immunodeficiency Virus (HIV), Hx of Known/Suspected MRSA, Traveled Outside the [place] in Last 30 Days - Family History Known Family History: Positive: Cardiac Disease - father - CHF, brother - aneurysm Negative: Hypertension, Diabetes - Social History Alcohol Use: Rare Hx Substance Use: No Substance Use Type: Reports: None Substance Use Comment - Amount & Last Used: oxycodone and oxymorphone Hx Tobacco Use: Yes Smoking Status (MU): Former Smoker Type: Cigarettes Amount Used/How Often: 2 packs per week Length of Time of Smoking/Using Tobacco: ON AND OFF 45 YRS Have You Smoked in the Last Year: No Review of Systems Negative: Fever, Chills Eyes: Negative ENT: Negative Positive: Shortness Of Breath Positive: Edema - bilateral lower extremity Skin: Other - bilateral lower extremity redness, wounds on right leg All Other Systems Reviewed And Are Negative: Yes Physical Exam - Summary Physical Exam Summary: VITAL SIGNS: Reviewed. GENERAL: Patient is an elderly and fragile female who is lying comfortable in the stretcher. Patient is not in any acute respiratory distress. HEAD AND FACE: No signs of trauma. No ecchymosis, hematomas or skull depressions. No sinus tenderness. EYES: PERRLA, EOMI x 2, No injected conjunctiva, no nystagmus. EARS: Hearing grossly intact. Ear canals and tympanic membranes are within normal limits. MOUTH: Oropharynx within normal limits. NECK: Supple, trachea is midline, no adenopathy, no JVD, no carotid bruit, no c- spine tenderness, neck with full ROM. CHEST: Symmetric, no tenderness at palpation LUNGS: Clear to auscultation bilaterally. No wheezing or crackles. CVS: Regular rate and rhythm, S1 and S2 present, no murmurs or gallops appreciated. ABDOMEN: Soft, non-tender. No signs of distention. No rebound no guarding, and no masses palpated. Bowel sounds are normal. EXTREMITIES: FROM in all major joints, no cyanosis or clubbing. Bilateral lower extremity edema. There is weeping in the right leg and open wounds on right leg. NEURO: Alert and oriented x 3. No acute neurological deficits. Speech is normal and follows commands. SKIN: Dry and warm Triage Information Reviewed: Yes Vital Signs On Initial Exam: Initial Vitals Temp Pulse Resp BP Pulse Ox 97.1 F 105 18 125/64 91 09/18/17 14:35 09/18/17 14:35 09/18/17 14:35 09/18/17 14:35 09/18/17 14:35 Vital Signs Reviewed: Yes Diagnostics - Vital Signs Vital Signs Temp Pulse Resp BP Pulse Ox 09/18/17 14:35 97.1 F 105 18 125/64 91 - Laboratory Result Diagrams: 09/18/17 16:37 09/18/17 16:37 Lab Statement: Any lab studies that have been ordered have been reviewed, and results considered in the medical decision making process. - Additional Comments Diagnostic Additional Comments: Venous Doppler Study, bilateral lower extremity, as read by radiologist: IMPRESSION: No evidence for RIGHT or LEFT lower extremity DVT. Dr. Espinoza has reviewed this radiology report. Lower Extremity Course/Dx - Course Assessment/Plan: This pt is a 87 y/o female presenting to [facility] referred by PCP c/o bilateral lower extremity pain and redness x2 days. Pt reports that her right leg is worse than the left. Pt notes she has some SOB. Daughter states the pt wounds on right leg have been weeping. Denies chest pain. Daughter states the pt had an appointment with her PCP today and was referred to come to the ED. Pt's wounds were dressed at her PCP's. PMHx includes COPD, CHF. Test results without any significant abnormalities except ESR of 48, CRP is 59.04, BUN of 67, creatinine of 1.37. Ultrasound of bilateral lower extremity shows no evidence for RIGHT or LEFT lower extremity DVT. Therefore pt will be discharged to home with follow up from her PCP. She was given a prescription for Lasix. Pt is hemodynamically stable, alert and oriented x3. Daughter and pt are instructed to return to the ED for any worsening or new symptoms. - Diagnoses Provider Diagnoses: Bilateral lower extremity edema Discharge - Discharge Plan Condition: Stable Disposition: HOME Prescriptions: Furosemide TAB* [Lasix TAB*] 20 mg PO DAILY #4 tab Patient Education Materials: Leg Edema (ED) Referrals: Jose Thompson MD [Primary Care Provider] - 3 Days Additional Instructions: Please follow up with your primary care provider. RETURN TO THE ED FOR ANY WORSENING SYMPTOMS. The documentation as recorded by the Sharad lynne Angela accurately reflects the service I personally performed and the decisions made by me, Armando Espinoza MD.
== END 2017-09-18 18:49 | disposition home or self-care (01) ==
LOC: ED 14:23
DX: R60.0 Localized edema (principal); Z87.891 Personal history of nicotine dependence; Z88.3 Allergy status to other anti-infective agents; Z88.5 Allergy status to narcotic agent; Z88.2 Allergy status to sulfonamides; Z88.8 Allergy status to other drugs, medicaments and biological substances; Z88.0 Allergy status to penicillin
CPT/HCPCS: 36415; 80053; 81003; 81015; 83605; 84550; 85025; 85652; 86140; 87040; 93970; 99282; A9270-GY

== ENCOUNTER 2017-11-13 13:52 | Inpatient (IN) | payer MEDICARE, BC ==
--- OUTSIDE RECORDS SUMMARY | 2017-11-13 14:24 | XMS REPORT ---
:1930 External Reference #:[id number] Author Organization [facility] Address [address] [place] [address] Phone [phone] Care Team Providers Name Role Phone Jose Thompson M.D. Primary Care Physician Unavailable Payers Type Date Identification Numbers Payment Provider Subscriber Medicare Primary Policy Number: [id number] [place] Kimberly Saldana PayID: [id number] [address] [address] [place] [address] Medigap Part B Policy Number: [id number] [facility] BC/BS [facility] Kimberly Saldana PayID: [id number] [address] [address] [place] [address] Problems Date Description Provider Status Onset: 08/04/2012 Osteoporosis Benito Reyez M.D. Active Family History Date Family Member(s) Problem(s) Comments Father due to Congestive Heart Failure () Mother due to CA () First Son A&W Second Son A&W First Daughter due to Cancer, Kidney () Second Daughter A&W Order Patient is the oldest of eight children First Brother CA Second Brother due to CA () Third Brother due to Aneurysm () Second Sister due to Stomach Cancer () Third Sister Hyperlipidemia Fourth Sister due to Ulcer () Fifth Sister Hyperlipidemia Social History Type Date Description Comments Education Highest level of education completed is 12th grade Marital Status Patient is Living Situation Patient lives alone Diet Diet is healthy and well balanced Pets There are no pets in the home Occupation Retired Cigarette Use Former cigarette smoker Alcohol Does not currently consume alcohol Smoking Patient is a former smoker Drug Use Never used drugs Daily Caffeine Does not consume caffeine Exercise Type/Frequency Current Exercises regularly Seat Belt/Car Seat Always uses a seat belt Currently Active The patient is currently not sexually active Contraceptive Methods Does not currently use any method of control STD's No STD history Allergies, Adverse Reactions, Alerts Date Description Reaction Status Severity Comments 08/28/2005 Cipro active 08/28/2005 Penicillin active 01/14/2007 fentanyl active 09/15/2013 Bactrim active Medications Medication Date Status Form Strength Qnty SIG Indications Ordering Provider Actonel 11/07/ Active Tablets 35mg 12tabs take 1 Dvorah 2009 tablet by Condon, mouth M.D. every week Lyrica / Active Capsules 50mg Unknown 0000 Terazosin / Active Capsules 2mg Unknown 0000 Cartia XT / Active Unknown 0000 Xopenex / Active Unknown 0000 Levothyroxine / Active Unknown Sodium 0000 Warfarin Sodium / Active Unknown 0000 Oxycodone HCL / Active Unknown 0000 Omeprazole / Active Capsules 20mg 1 by mouth Unknown 0000 DR every day Spiriva / Active Capsules 18mcg inhale the Unknown Handihaler 0000 contents of one capsule daily Symbicort / Active Aerosol 80-4.5mcg/ inhale 2 Unknown 0000 Act puffs by mouth two times a day Aspir-81 / Active Tablets DR 81mg 1 by mouth Unknown 0000 every day otc Calcium + D / Active Chewtabs 500-1000-4 1 by mouth Unknown 0000 0mg-Unt-mc every day g Furosemide / Active Tablets 20mg 1 by mouth Unknown 0000 every day Lorazepam / Active Tablets 0.5mg 1 by mouth Unknown 0000 twice a day as needed anxiety Metoprolol / Active Tablets ER 25mg 1 by mouth Unknown Succinate ER 0000 24HR every day Nitrostat / Active Tablets 0.3mg Unknown 0000 Sub Oxymorphone HCL / Active Tablets ER 15mg Unknown ER 0000 12HR Triamcinolone 11/16/ Hx Ointment 0.5% 15GRT apply bid Josue Goldberg Acetonide 2008 - Wero, 07/13/ MAliceDAlice 2012 Evista 08/28/ Hx Tablets 60mg 90tabs 1 po qd Radha Gonzalez 2005 - Sushil, 01/14/ MTavares 2006 Oxycodone / Hx Capsules 5mg 30caps Unknown 2013 Synthroid 00/ Hx Unknown 2014 Aspirin / Hx Chewtabs 81mg Unknown 2006 Elavil / Hx Tablets 25mg Unknown 2012 Cymbalta / Hx Unknown 2006 Nexium / Hx Unknown 2014 Avinza / Hx Capsules 120mg Unknown 2014 Actonel W/ / Hx Tablets 35mg;500 12tabs one tab po Radha Gonzalez Calcium 0000 - mg qweek as Sushil Dino 2009 Coumadin / Hx Unknown 2012 Diovan / Hx Unknown 2012 Medications Administered in Office Medication Date Status Form Strength Qnty SIG Indications Ordering Provider PT SCRN Tbco Administered Injection Mirian Camejo as Non User 018 MD [place] Immunizations CPT Code Status Date Vaccine Lot # [id number] Given 08/28/2005 Influenza Virus Vaccine 3Years Or Older Vital Signs Date Vital Result Comment 11/04/2017 BP Systolic 108 mmHg BP Diastolic 54 mmHg Height 62 inches 5'2" Weight 153.00 lb BMI (Body Mass Index) 28.0 kg/m2 4 Parity 4 07/29/2016 BP Systolic 96 mmHg BP Diastolic 60 mmHg Height 62 inches 5'2" Weight 152.00 lb BMI (Body Mass Index) 27.8 kg/m2 02/05/2015 Height 62 inches 5'2" Weight 158.00 lb BMI (Body Mass Index) 28.9 kg/m2 4 Parity 4 09/15/2013 BP Systolic 124 mmHg BP Diastolic 70 mmHg Height 62 inches 5'2" Weight 172.00 lb BMI (Body Mass Index) 31.5 kg/m2 09/09/2012 BP Systolic 130 mmHg BP Diastolic 86 mmHg Height 63 inches Weight 174.00 lb BMI (Body Mass Index) 30.8 kg/m2 08/04/2012 BP Systolic 120 mmHg BP Diastolic 64 mmHg Height 62.50 inches 5'2.50" Weight 177.00 lb BMI (Body Mass Index) 31.9 kg/m2 4 Parity 4 06/18/2011 BP Systolic 122 mmHg BP Diastolic 62 mmHg Height 62 inches 5'2" Weight 183.00 lb BMI (Body Mass Index) 33.5 kg/m2 4 Parity 4 04/23/2010 BP Systolic 120 mmHg BP Diastolic 80 mmHg Height 63 inches 5'3" Weight 188.00 lb BMI (Body Mass Index) 33.3 kg/m2 4 Parity 4 04/17/2009 BP Systolic 100 mmHg BP Diastolic 66 mmHg Height 54.25 inches 4'6.25" Weight 179.00 lb BMI (Body Mass Index) 42.8 kg/m2 4 Parity 4 11/23/2008 BP Systolic 112 mmHg BP Diastolic 62 mmHg Height 64.25 inches 5'4.25" Weight 173.00 lb BMI (Body Mass Index) 29.5 kg/m2 11/16/2008 BP Systolic 122 mmHg BP Diastolic 70 mmHg Height 64.25 inches 5'4.25" Weight 172.00 lb BMI (Body Mass Index) 29.3 kg/m2 Last Menstrual Period 0 03/23/2008 BP Systolic 124 mmHg BP Diastolic 74 mmHg Height 64.25 inches 5'4.25" Weight 158.00 lb BMI (Body Mass Index) 26.9 kg/m2 Last Menstrual Period 0 Approx. 1956 01/14/2007 BP Systolic 110 mmHg BP Diastolic 60 mmHg Height 64.25 inches 5'4.25" Weight 190.00 lb BMI (Body Mass Index) 32.4 kg/m2 4 Parity 4 12/30/2005 BP Systolic 160 mmHg BP Diastolic 88 mmHg Height 64.25 inches 5'4.25" Weight 182.00 lb BMI (Body Mass Index) 31.0 kg/m2 08/28/2005 BP Systolic 150 mmHg BP Diastolic 80 mmHg Height 64.25 inches 5'4.25" Weight 185.00 lb BMI (Body Mass Index) 31.5 kg/m2 4 Parity 4 Results Test Date Test Result H/L Range Note Urine Culture & 11/16/2008 Urine Culture NG 1 Sensitivi Sensitivi Laboratory test 08/28/2005 TSH 0.78 MIU/ML 0.34-5.60 finding CBC With Electronic 08/28/2005 White Blood Count 5.3 CUMM 4.8-10.8 Diff Abs Basophils 0 0-0.2 Abs Eosinophils 0 0-0.6 Absolute Neutrophil Count 3.5 1.5-7.7 Abs Lymphs 1.4 1.0-4.8 Abs Mononuclear 0.3 0-0.8 Basophil % 0.3 % 0-2 Hematocrit 36 % 35-47 Hemoglobin 12.0 g/dL 12.0-16.0 Eosinophil % 0.9 % 0-6 Gran % 65.7 % 38-83 Lymph % 26.5 % 20-45 Mean Corpuscular HGB Cone 33 g/dL 32-36 Mean Corpuscular Hemoglob 34 pg High 27-31 Mean Corpuscular Volume 103 um3 High 79-97 Mean Platelet Volume 8.2 um3 7.4-10.4 Mononuclear % 6.6 % 1-9 Platelet Count 198 CUMM 150-450 Red Cell Count 3.52 CUMM Low 4.2-5.4 Redcell Distribution WDTH 15 % 10.5-15 Liver Function Panel 08/28/2005 Albumin/Globulin Ratio 1.3 1-3 Albumin 3.5 GM/DL 3.2-5.2 Alkaline Phosphatase 72 U/L 30-110 Alt (SGPT) 19 U/L 14-54 Ast (Sgot) 27 U/L 12-42 Bilirubin Direct < 0.1 mg/dL Low 0.1-0.5 Globulin 2.8 GM/DL 2-4 Bilirubin Total 0.4 mg/dL 0.4-1.5 Total Protein 6.3 GM/DL 6.2-8.1 1 FINAL: NO GROWTH DAY 2 (<1,000 CFU/mL) Procedures Date CPT Code Description Status Comment 08/19/2017 Mammogram Completed 09/15/2013 80079 Echography Pelvic Complete Completed 09/09/2012 21781 Echography Transvaginal Completed 10/20/2011 11628 Misc. Charge To PT. Completed 07/13/2010 Colonoscopy Completed 09/16/2005 36190 DO Not Use After 230706 Completed 09/04/2003 47740 DO Not Use After 328641 Completed Encounters Type Date Location Provider CPT E/M Dx Office Visit 11/04/2017 1:00p [place] [address] Z01.419 Office Visit 07/29/2016 3:00p [facility] Benito Reyez M.D. 49567 Z01.411 D48.61 Office Visit 02/05/2015 1:30p [facility] Benito Reyez M.D. 10064 V15.89 V76.2 V72.31 733.00 Office Visit 09/15/2013 1:30p [facility] Benito Reyez M.D. 77073 V72.31 789.30 733.00 V76.2 V15.89 Office Visit 09/09/2012 11:30a [facility] Benito Reyez M.D. 54895 789.30 Office Visit 08/04/2012 10:00a [facility] Benito Reyez M.D. 94473 V72.31 733.00 620.2 V76.2 V15.89 Office Visit 06/18/2011 12:30p [facility] Benito Reyez M.D. 52475 V72.31 733.01 V76.2 V15.89 Office Visit 04/23/2010 10:40a [facility] Radha Ling M.D. 85041 V72.31 V76.41 627.3 733.01 785.6 V76.2 V15.89 Office Visit 04/17/2009 10:40a [facility] Radha Ling M.D. 56747 V72.31 V76.41 627.3 733.01 V76.2 V15.89 Office Visit 11/23/2008 1:00p [facility] Josue Conteh M.D. 59571 788.1 V67.9 Office Visit 11/16/2008 10:40a [facility] Josue Conteh M.D. 52076 788.1 616.10 Office Visit 03/23/2008 1:20p [facility] Benito Reyez M.D. 31593 V72.31 V76.2 V15.89 Office Visit 01/14/2007 10:40a [facility] Radha Ling M.D. 44732 V72.31 V77.1 V49.81 V76.2 Office Visit 12/30/2005 3:40p [facility] Ashlyn Yanes JR., M.D. 56729 624.1 V77.1 627.1 599.7 Office Visit 08/28/2005 1:40p [facility] Radha Ling M.D. 33926 V04.81 V76.2 624.1 V72.31 733.01 627.2 V70.0 729.5 V77.1 244.0 Office Visit 07/25/2004 11:00a [facility] Benito Reyez M.D. 18560 V72.31 V76.2 V15.89 Office Visit 05/15/2003 10:20a [facility] Radha Ling M.D. 71477 V76.2 V72.3 V76.9 V78.1 V77.1 Plan of Care No Information Available
[2017-11-13] MEDS ORDERED: oxyCODONE/Acetamin 5/325 MG* TAB PO ONE (14:41)
[2017-11-13 15:14] LABS: Hematocrit 28 % (35-47); Hemoglobin 8.7 g/dl (12.0-16.0); Mean Corpuscular HGB Conc 31 g/dl (31-36); Mean Corpuscular Hemoglobin 28 pg (27-31); Mean Corpuscular Volume 88 fL (80-97); Red Blood Count 3.15 10^6/ul (4.0-5.4); Red Cell Distribution Width 21 % (10.5-15); White Blood Count 5.4 10^3/ul (3.5-10.8)
[2017-11-13 15:16] LABS: INR 1.36 (0.77-1.02)
[2017-11-13 15:31] LABS: EGFR Non-African American 38.7 (>60)
--- NOTE | 2017-11-13 15:39 | RAD ---
HISTORY: Fall, right foot pain COMPARISONS: April 21, 2014 VIEWS: 2, Frontal and lateral views of the right foot FINDINGS: BONE DENSITY: There is diffuse osteopenia. BONES: There is no acute displaced fracture. There is remote posttraumatic deformity to the third and fourth metatarsals. JOINTS: There is osteoarthritis of the midfoot and ankle. There is osteoporosis of the interphalangeal joints. ALIGNMENT: There is no dislocation. SOFT TISSUES: Unremarkable. OTHER FINDINGS: None. IMPRESSION: 1. OSTEOPENIA. 2. OSTEOARTHRITIS. 3. NO ACUTE OSSEOUS INJURY. THE DEGREE OF OSTEOPENIA MAY MAKE A NONDISPLACED FRACTURE RADIOGRAPHICALLY OCCULT. IF SYMPTOMS PERSIST, RECOMMEND REPEAT IMAGING.
--- NOTE | 2017-11-13 15:40 | RAD ---
HISTORY: Fall, pelvic pain COMPARISONS: None VIEWS: 1, Single frontal view of the pelvis FINDINGS: BONE DENSITY: Normal. BONES: There is no displaced fracture. JOINTS: There is advanced osteoarthritis of the left hip. ALIGNMENT: There is no dislocation. SOFT TISSUES: Unremarkable. OTHER FINDINGS: Degenerative changes are noted of the spine. IMPRESSION: OSTEOARTHRITIS. NO ACUTE OSSEOUS INJURY. IF SYMPTOMS PERSIST, RECOMMEND REPEAT IMAGING.
[2017-11-13 15:52] LABS: ABS Basophils 0 10^3/ul (0-0.2); ABS Eosinophils 0 10^3/ul (0-0.6); ABS Monocytes 0.5 10^3/ul (0-0.8); ABS Neutrophils 3.8 10^3/ul (1.5-7.7); ABS Nucleated RBC 0 10^3/ul; Eosinophil % 0.7 % (0-6); Mean Platelet Volume 9.8 um3 (7.4-10.4); Nucleated Red Blood Cells % 0; Platelet Count 96 10^3/ul (150-450)
--- NOTE | 2017-11-13 16:19 | RAD ---
HISTORY: Trauma, fall, leg pain COMPARISONS: July 15, 2014 VIEWS: 1: frontal portable view of the chest at 3:45 PM. The patient is obliqued to the right. FINDINGS: LINES AND TUBES: None. CARDIOMEDIASTINAL SILHOUETTE: The cardiomediastinal silhouette is normal for portable technique. PLEURA: The costophrenic angles are sharp. No pleural abnormalities are noted. LUNG PARENCHYMA: There is hyperinflation. ABDOMEN: The upper abdomen is clear. There is no subphrenic gas. BONES AND SOFT TISSUES: No bone or soft tissue abnormalities are noted. IMPRESSION: HYPERINFLATION. NO ACTIVE CARDIOPULMONARY DISEASE.
--- NOTE | 2017-11-13 17:19 | ED ---
Parul Xie Gabriel, scribed for Jorge L Dubon MD on 11/13/17 at 1532 . Adult Trauma - HPI Summary HPI Summary: This patient is a 87 year old F [facility] accompanied by her daughter s/p fall that occurred earlier today at 0900. Pt states she fell onto a chair due to weakness. The patient rates the pain 5/10 in severity. Patient reports bilateral LE edema, toe pain, and right foot pain that is chronic but worse now. Pt is on warfarin. Pt states she is unable to walk secondary to foot pain even with her walker. - History of Current Complaint Chief Complaint: EDExtremityLower Stated Complaint: FALL/LEG PAIN Time Seen by Provider: 11/13/17 14:21 Hx Obtained From: Patient Ambulatory at the Scene: No Loss of Consciousness: no loss of consciousness Onset/Duration: Started Hours Ago, Still Present Onset of Pain: Immediate Onset Severity: Moderate Current Severity: Moderate Pain Intensity: 5 Pain Scale Used: 0-10 Numeric Associated Signs & Symptoms: Positive: Other: - bilateral LE edema, toe pain, and right foot - Additional Pertinent History Primary Care Physician: [id number] - Allergy/Home Medications Allergies/Adverse Reactions: Allergies Allergy/AdvReac Type Severity Reaction Status Date / Time fentanyl Allergy Unknown Difficulty Verified 11/13/17 14:00 Breathing sulfamethoxazole AdvReac Intermediate Nausea Verified 11/13/17 14:00 [From Bactrim] trimethoprim [From Bactrim] AdvReac Intermediate Nausea Verified 11/13/17 14:00 ciprofloxacin AdvReac Hives Verified 11/13/17 14:00 codeine AdvReac Hives Verified 11/13/17 14:00 Penicillins AdvReac Hives Verified 11/13/17 14:00 Home Medications: Home Medications Aspirin EC TAB* [Ecotrin EC Low Dose 81 MG*] 81 mg PO DAILY 11/13/17 [History Confirmed 11/13/17] Budesonide/Formote 160/4.5(NF) [Symbicort 160/4.5 (NF)] 2 puff INH BID 11/13/17 [History Confirmed 11/13/17] Calcium Carbonate [Calcium] 500 mg PO DAILY 11/13/17 [History Confirmed 11/13/17 ] Cholecalciferol TAB* [Vitamin D TAB*] 800 unit PO DAILY 11/13/17 [History Confirmed 11/13/17] Docusate CAP* [Colace Cap*] 100 - 200 mg PO DAILY 11/13/17 [History Confirmed ] Furosemide TAB* [Lasix TAB*] 40 mg PO DAILY 11/13/17 [History Confirmed 11/13/17 ] Ipratropium 0.5MG/2.5ML NEB* [Atrovent 0.5 MG NEB.LOKESH*] 0.5 mg INH Q4H PRN 11/13 [History Confirmed 11/13/17] LORazepam TAB(*) [Ativan 0.5 MG TAB (*)] 0.5 mg PO BID PRN 11/13/17 [History Confirmed 11/13/17] Levalbuterol HFA INHALER* [Xopenex Hfa Inhaler*] 2 puff INH QID PRN 11/13/17 [ History Confirmed 11/13/17] Levothyroxine TAB* [Synthroid TAB*] 25 mcg PO DAILY 11/13/17 [History Confirmed 11/13/17] Metoprolol Succinate XL TAB* [Toprol XL TAB*] 25 mg PO DAILY 11/13/17 [History Confirmed 11/13/17] Nitroglycerin TAB 0.4 MG* 0.4 mg SL Q5M PRN 11/13/17 [History Confirmed 11/13/17 ] Omeprazole CAP* [Prilosec CAP* 20 MG] 40 mg PO BID 11/13/17 [History Confirmed 11/13/17] Oxymorphone ER (NF) [Opana ER (NF)] 15 mg PO BID MDD 2 tablets 11/13/17 [ History Confirmed 11/13/17] Polyethylene Glycol 3350* [Miralax*] 17 gm PO QAM 11/13/17 [History Confirmed ] Ranitidine TAB (NF) [Zantac TAB (NF)] 150 mg PO QAM 11/13/17 [History Confirmed 11/13/17] Risedronate (NF) [Actonel (NF)] 35 mg PO WEEKLY 11/13/17 [History Confirmed 10/28] Simethicone [Gas-X Extra Strength] 125 mg PO TID PC 11/13/17 [History Confirmed 11/13/17] Spironolactone TAB* [Aldactone TAB*] 25 mg PO DAILY 11/13/17 [History Confirmed 11/13/17] Tiotropium CAP.INH* [Spiriva CAP.INH*] 1 cap.inh INH DAILY 11/13/17 [History Confirmed 11/13/17] Warfarin TAB(*) [Coumadin TAB(*)] 3 mg PO DAILY 11/13/17 [History Confirmed 10/28] dilTIAZem HCl [Cartia Xt] 120 mg PO DAILY 11/13/17 [History Confirmed 11/13/17] oxyCODONE TAB* [Roxycodone TAB 5 mg*] 15 mg PO Q4H PRN 11/13/17 [History Confirmed 11/13/17] PMH/Surg Hx/FS Hx/Imm Hx Endocrine/Hematology History: Reports: Hx Anticoagulant Therapy - coumadin for a fib, Hx Blood Disorders - chronic thrombocytopenia, Hx Thyroid Disease - juwan, Hx Anemia - HX OF Denies: Hx Diabetes Cardiovascular History: Reports: Hx Angina, Hx Congestive Heart Failure, Hx Coronary Artery Disease, Hx Hypercholesterolemia, Hx Hypertension, Other Cardiovascular Problems/Disorders - AFIB Denies: Hx Deep Vein Thrombosis, Hx Myocardial Infarction, Hx Pacemaker/ICD, Hx Valvular Heart Disease Respiratory History: Reports: Hx Asthma, Hx Chronic Obstructive Pulmonary Disease (COPD), Hx Pneumonia - Hospitalized from 10/14/14 - 10/25/14 and 04/26; 2016, Hx Seasonal Allergies, Other Respiratory Problems/Disorders - BILAT PNEUMONIA 10/25. PT WITH TB 1994 Denies: Hx Lung Cancer - 2L O2 at night - on 4L continuous since pneumonia January 2017, Hx Pulmonary Embolism GI History: Reports: Hx Gall Bladder Disease - cholecystectomy 1976, Hx Gastroesophageal Reflux Disease - CONTROL WITH MED, Hx Ulcer, Other GI Disorders - partial gastrectomy 1972 Denies: Hx Gastrointestinal Bleed, Hx Urosepsis History: Reports: Other Problems/Disorders - hysterectomy breast biopsy left Denies: Hx Kidney Stones, Hx Renal Disease Musculoskeletal History: Reports: Hx Arthritis - BACK, KNEES, Hx Back Problems - laminectomy, Hx Orthopedic Injury - hx r arm, r ankle, toes, Other Musculoskeletal History - back surgery 1995 Sensory History: Reports: Hx Cataracts - removed, Hx Contacts or Glasses - READING GLASSES Denies: Hx Hearing Aid, Other Sensory Impairments Opthamlomology History: Reports: Hx Cataracts - removed, Hx Contacts or Glasses - READING GLASSES Denies: Other Sensory Impairments Neurological History: Reports: Other Neuro Impairments/Disorders - PERIPHERAL NEUROPATHY BILAT Denies: Hx Dementia, Hx Developmental Delay, Hx Migraine, Hx Seizures, Hx Transient Ischemic Attacks (TIA) Psychiatric History: Reports: Hx Anxiety - CONTROL WITH MED, Hx Depression - CONTROL WITH MED Denies: Hx Panic Disorder, Hx Schizophrenia, Hx Bipolar Disorder, Hx Suicide Attempt, Hx of Violent Episodes Against Others - Cancer History Cancer Type, Location and Year: breast lumpectomy was benign Hx Chemotherapy: No Hx Radiation Therapy: No - Surgical History Surgery Procedure, Year, and Place: T&A A CHILD. groin abscess A CHILD. appendectomy, cholecystectomy, [facility]. hysterectomy partial, [facility]. thyroidectomy partial, [facility]. L breast and R lung biopsies, [facility]. 1995 laminectomy L4,5, [facility]. gastrectomy partial 1972 r/t hemmorhaging ulcer;. Carpal Tunnel Surgery Right Wrist by Dr. Chauhan in July 2015. BILAT CATARACTS, [facility]. right lymph node bx 1994, [facility]. left leg surgery- vein 2003 [facility]. Left Breast lumpectomy 1982, [facility] Hx Anesthesia Reactions: No - Immunization History Date of Tetanus Vaccine: 2013 Date of Influenza Vaccine: Fall 2012 Infectious Disease History: No Infectious Disease History: Reports: Hx Tuberculosis - , per pt, History Other Infectious Disease - hx e-coli sepsis and pneumonia February 2017 Denies: Hx Clostridium Difficile, Hx Hepatitis, Hx Human Immunodeficiency Virus (HIV), Hx of Known/Suspected MRSA, Traveled Outside the [place] in Last 30 Days - Family History Known Family History: Positive: None, Cardiac Disease - father - CHF, brother - aneurysm Negative: Hypertension, Diabetes Family History: R & N/C - Social History Alcohol Use: Weekly Alcohol Amount: 1-2 drinks per week Hx Substance Use: No Substance Use Type: Reports: None Substance Use Comment - Amount & Last Used: oxycodone and oxymorphone Hx Tobacco Use: Yes Smoking Status (MU): Former Smoker Type: Cigarettes Amount Used/How Often: 2 packs per week Length of Time of Smoking/Using Tobacco: ON AND OFF 45 YRS Have You Smoked in the Last Year: No Review of Systems Positive: Edema, Other - right foot pain Positive: Bruising All Other Systems Reviewed And Are Negative: Yes Physical Exam - Summary Physical Exam Summary: Appearance: Well appearing, no pain distress Skin: chronic stasis dermatitis in LEs, ecchymosis of the posterior right calf that extends to the right posterior buttock/thigh that extends into the gluteal crest. Small bruise on the greater trochanter of the left hip Head/face: normal Eyes: EOMI, KRYS ENT: normal Neck: supple, non-tender Respiratory: CTA, breath sounds present Cardiovascular: irregularly irregular with systolic murmur Abdomen: non-tender, soft Bowel Sounds: present Musculoskeletal: chronic edema in bilateral LE to the knees, no pain with log roll or flexion of the right hip no knee pain, no midline tenderness in the neck Neuro: normal, sensory motor intact, A&Ox3 Triage Information Reviewed: Yes Vital Signs On Initial Exam: Initial Vitals Temp Pulse Resp BP Pulse Ox 98.3 F 66 16 96/42 95 11/13/17 13:57 11/13/17 13:57 11/13/17 13:57 11/13/17 13:57 11/13/17 13:57 Vital Signs Reviewed: Yes Diagnostics - Vital Signs Vital Signs Temp Pulse Resp BP Pulse Ox 11/13/17 13:57 98.3 F 66 16 96/42 95 - Laboratory Lab Results: Lab Results 11/13/17 Range/Units 14:57 WBC 5.4 (3.5-10.8) 10^3/ul RBC 3.15 L (4.0-5.4) 10^6/ul Hgb 8.7 L (12.0-16.0) g/dl Hct 28 L (35-47) % MCV 88 (80-97) fL MCH 28 (27-31) pg MCHC 31 (31-36) g/dl RDW 21 H (10.5-15) % Plt Count Pending MPV Pending Neut % (Auto) Pending Lymph % (Auto) Pending Dade % (Auto) Pending Eos % (Auto) Pending Baso % (Auto) Pending Absolute Neuts (auto) Pending Absolute Lymphs (auto) Pending Absolute Monos (auto) Pending Absolute Eos (auto) Pending Absolute Basos (auto) Pending Absolute Nucleated RBC Pending Nucleated RBC % Pending Result Diagrams: 11/13/17 14:57 11/13/17 14:57 Lab Statement: Any lab studies that have been ordered have been reviewed, and results considered in the medical decision making process. - Radiology No standard instances Xray Interpretation: No Acute Changes Radiology Interpretation Completed By: Radiologist - Chest x-ray is negative for acute change right foot Xray Interpretation: No Acute Changes Radiology Interpretation Completed By: Radiologist pelvis Xray Interpretation: No Acute Changes Radiology Interpretation Completed By: Radiologist - Additional Comments Diagnostic Additional Comments: Pelvis XR reveals, per radiologist, OSTEOARTHRITIS. NO ACUTE OSSEOUS INJURY. IF SYMPTOMS PERSIST, RECOMMEND REPEAT IMAGING. ED physician has reviewed this radiology report. Foot XR reveals, per radiologist, 1. OSTEOPENIA. 2. OSTEOARTHRITIS. 3. NO ACUTE OSSEOUS INJURY. THE DEGREE OF OSTEOPENIA MAY MAKE A NONDISPLACED FRACTURE RADIOGRAPHICALLY OCCULT. IF SYMPTOMS PERSIST, RECOMMEND REPEAT IMAGING. ED physician has reviewed this radiology report. Re-Evaluation - Re-Evaluation First Eval Change: Improved - Pain improving with oral treatment Adult Trauma Course/Dx - Course Course Of Treatment: Patient with fall and significant hematoma that extends from the buttocks all the way through the upper or lower leg. She has dropped her hemoglobin 2 g over previous. Her INR is not even therapeutic. She was treated orally for pain here. Her mobility is significantly impacted. She will require admission, physical therapy evaluation and monitoring of her INR, hemoglobin. - Diagnoses Differential Diagnosis/HQI/PQRI: Positive: Abrasion(s), Contusion(s), Fracture, Hematoma(s), Sprain, Strain Provider Diagnoses: Anemia, Fall, Hematoma of right lower extremity - Physician Notifications Discussed Care Of Patient With: Darrell Terry - Will admit Time Discussed With Above Provider: 15:57 Instructed by Provider To: Admit As Inpatient Discharge - Sign-Out/Discharge Documenting (check all that apply): Discharge/Admit/Transfer - admitted - Discharge Plan Condition: Fair Disposition: ADMITTED TO [facility] Referrals: Jose Thompson MD [Primary Care Provider] - - Billing Disposition and Condition Condition: FAIR Disposition: [facility] The documentation as recorded by the Parul lynne Gabriel accurately reflects the service I personally performed and the decisions made by me, Jorge L Dubon MD.
[2017-11-13] MEDS ORDERED: Nitroglycerin TAB 0.4 MG* 0.4 MG TAB SL PRN (21:09)
[2017-11-13] MEDS ORDERED: Levalbuterol HFA INHALER* 1 PUFF MDI INH PRN (21:09)
[2017-11-13] MEDS ORDERED: Ipratropium 0.5MG/2.5ML NEB* 0.5 MG/2.5 ML NEB.SOLN INH PRN (21:09)
[2017-11-13] MEDS: oxyCODONE TAB* 5 MG TAB PO PRN (23:46)
[2017-11-14 01:00] LABS: Hematocrit 27 % (35-47); Hemoglobin 8.5 g/dl (12.0-16.0)
--- NOTE | 2017-11-14 01:31 | HP ---
CC: Dr. Thompson HISTORY AND PHYSICAL: DATE OF ADMISSION: 11/13/17 PRIMARY CARE PROVIDER: Dr. Thompson. CHIEF COMPLAINT: Fall with leg pain. HISTORY OF PRESENT ILLNESS: Ms. Saldana is an 87-year-old female who has a history of atrial fibrilla tion, on Coumadin; COPD with O2 use to sleep; chronic pain; hypothyroidism; diastolic CHF; and neurop athy who presents to the emergency room after sustaining a fall into her lift chair earlier on the y of admission. At approximately between 8 and 9 a.m., the patient was doing exercises standing in f ront of her lift chair. She states suddenly her knees gave out. She fell backwards into her lift ch air hitting her specifically the right leg hard on the chair. Friend came to pick her up today and f ound her crying. At that point, she was brought to the emergency room. The patient was noted to hav e a marked bruise to the right posterior thigh. The patient states that she had no loss of conscious ness. No dizziness. No chest pain and no shortness of breath more than usual. The patient states g enerally she has been doing okay, walking with a walker since leaving rehab last year. PAST MEDICAL HISTORY: 1. Atrial fibrillation. 2. COPD. 3. Chronic pain. 4. Hypothyroidism. 5. Diastolic CHF. 6. Tricuspid regurgitation. 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 8. Hypertension. 9. Coronary artery disease. PAST SURGICAL HISTORY: 1. Partial hysterectomy. 2. Lumbar back surgery. 3. Partial gastrectomy. 4. Partial thyroidectomy. 5. Laparoscopic cholecystectomy. 6. Right carpal tunnel release. MEDICATIONS: 1. Simethicone 125 mg p.o. t.i.d. PC. 2. Actonel 35 mg p.o. weekly. 3. Ranitidine 150 mg p.o. daily. 4. MiraLAX 17 g p.o. daily. 5. Atrovent 1 neb inhaled q.4 hours p.r.n. shortness of breath. 6. Coumadin 3 mg p.o. daily. 7. Xopenex 2 puffs inhaled 4 times daily p.r.n. shortness of breath. 8. Vitamin D 800 units p.o. daily. 9. Spironolactone 25 mg p.o. daily. 10. Colace 100 to 200 mg p.o. daily. 11. Symbicort 160/4.5 two puffs inhaled twice daily. 12. Spiriva 1 puff inhaled daily. 13. Opana ER 15 mg p.o. b.i.d. 14. Oxycodone 15 mg p.o. q.4 hours p.r.n. pain. 15. Omeprazole 40 mg p.o. b.i.d. 16. Nitroglycerin 0.4 mg SL q.5 minutes p.r.n. chest pain. 17. Metoprolol XL 25 mg p.o. daily. 18. Ativan 0.5 mg p.o. b.i.d. p.r.n. anxiety. 19. Cartia XT 120 mg p.o. daily. 20. Levothyroxine 25 mcg p.o. daily. 21. Lasix 40 mg p.o. daily. 22. Calcium carbonate 500 mg p.o. daily. 23. Aspirin 81 mg p.o. daily. ALLERGIES: FENTANYL, BACTRIM, CIPRO, CODEINE, PENICILLIN. FAMILY HISTORY: Mom of an SD. Postoperatively, dad of CHF. SOCIAL HISTORY: The patient is a former smoker. She quit approximately 24 years ago. She does not drink alcohol. 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 She is . She has 4 children. Her daughter, Masha , is her healthcare proxy. REVIEW OF SYSTEMS: Complete 11-system review of systems is obtained. Pertinent positives and negati ves are as per HPI and in addition, the patient does state that she has chronic lower extremity edema . She states that when she left [facility] last year, she had no significant edema in her legs. T he edema has been chronic. She also complains of pain in her right foot around her toes. PHYSICAL EXAMINATION GENERAL: The patient is a well-developed elderly female seen sitting up in the stretcher, in no acut e distress. VITAL SIGNS: Blood pressure 108/59, pulse 58, respirations 18, temp 98.3, O2 sat 98% on 2 L. HEENT: Pupils are equal and round. Extraocular muscles are intact. There is evidence of prior jose alberto ract extraction. Oropharynx is clear. Oral mucosa is moist. There is no submandibular, cervical or supraclavicular adenopathy. There is evidence of prior thyroidectomy scar. PULMONARY: Lungs are clear to auscultation bilaterally though diminished throughout. CARDIAC: Normal S1, S2. Regular rate and rhythm. I do not appreciate any murmurs. There is 2 to 3 + bilateral lower extremity edema. ABDOMEN: Bowel sounds present. Abdomen is soft, nontender, nondistended. MUSCULOSKELETAL: There is no cyanosis or clubbing of the digits. There is full active range of tru on of all 4 extremities. NEURO: Cranial nerves II through XII are grossly intact. Sensation is intact to light touch through out. Strength is 5/5 and symmetric in both upper and lower extremities bilaterally. SKIN: Warm and dry. There are no rashes. The patient does have a very large purple bruise to the p osterior thigh. This is tender to touch. There is a small approximately dime-sized very shallow dry ulceration to the medial right calf. There is no surrounding erythema. There is some mild erythema on the anterior aspect of the right schmitz. PSYCH: The patient is alert. She is oriented x3. Affect appears appropriate. DIAGNOSTIC STUDIES/LAB DATA: WBC 5.4, hemoglobin 8.7, hematocrit 28, platelets 96, INR 1.36. Sodiu m 141, potassium 4.3, chloride 103, CO2 33, BUN 44, creatinine 1.30, glucose 129, calcium 8.7. Chest x-ray revealed hyperinflation with no active cardiopulmonary disease. Pelvis x-ray: Osteoarthritis is present. No acute osseous injury. Right foot x-ray reveals osteopenia and osteoarthritis. No a cute osseous injury. ASSESSMENT AND PLAN: Ms. Saldana is an 87-year-old female who has a history of atrial fibrillation, o n Coumadin though currently with a subtherapeutic INR, chronic obstructive pulmonary disease, chronic pain, diastolic congestive heart failure, hypertension and coronary artery disease who presents to [facility] emergency room after sustaining mechanical fall where she states her legs gave out and she fell in to her chair. 1. Right thigh hematoma. The patient has a significant bruise at the right posterior thigh. Her he moglobin has dropped from 10.8 on 09/18/17 to 8.7 today. Thankfully, her INR was subtherapeutic at th is time. The patient will be admitted under observation status. She will have a repeat H and H at m idnight tonight followed by CBC in the morning of 11/14/17. PT eval will be ordered to evaluate her mobility. 2. Chronic obstructive pulmonary disease. The patient is stable at this point with no signs of exac erbation. She will continue on her usual inhaler/nebulizer regimen. She will continue to use supple mental oxygen as needed. 3. Hypothyroidism. The patient will continue on her usual dose of Synthroid. 4. Diastolic congestive heart failure. I am going to hold the patient's oral Lasix and give 40 mg o f IV Lasix tomorrow morning. 5. The patient does have significant lower extremity edema. 6. She will be maintained on her usual dose of spironolactone. 7. Her most recent echocardiogram was in July 2016, which revealed an EF of 60% to 65% with moder qdv-[id number] tricuspid regurgitation, yiox-kv-auynmzpt mitral regurgitation and moderate pulmonary h ypertension. 8. Hypertension. The patient will be maintained on her usual home medication regimen with close mon itoring of her blood pressure due to the acute blood loss. 9. Coronary artery disease. Continue aspirin 81 mg daily and metoprolol XL. 10. DVT prophylaxis. According to the Adult Thrombosis Prophylaxis Risk Factor Assessment Guide, th e patient has a total risk factor score of 6, making her the highest risk. Chemical prophylaxis will be held due to the acute blood loss. Mechanical prophylaxis will also be held due to pain at this ti me. 11. Code status is full. TIME SPENT: 65 minutes were spent admitting this patient. [id number]/[facility] #: [id number]
[2017-11-14 05:09] LABS: Hematocrit 25 % (35-47); Hemoglobin 8.1 g/dl (12.0-16.0); Mean Corpuscular HGB Conc 32 g/dl (31-36); Mean Corpuscular Hemoglobin 28 pg (27-31); Mean Corpuscular Volume 88 fL (80-97); Mean Platelet Volume 8.9 um3 (7.4-10.4); Platelet Count 88 10^3/ul (150-450); Red Blood Count 2.89 10^6/ul (4.0-5.4); Red Cell Distribution Width 20 % (10.5-15); White Blood Count 4.4 10^3/ul (3.5-10.8)
[2017-11-14] MEDS: Levothyroxine TAB* 25 MCG TAB PO SCH (05:59)
[2017-11-14] MEDS ORDERED: Furosemide IV* 10 MG/ML VIAL (40 MG) IV ONE (07:00)
[2017-11-14] MEDS: Omeprazole CAP* 20 MG PO SCH ×2 (07:33→20:44)
[2017-11-14] MEDS: Docusate CAP* 100 MG PO SCH (07:33)
[2017-11-14] MEDS: Polyethylene Glycol 3350* 17 GM PACKET PO SCH (07:33)
[2017-11-14] MEDS: Aspirin EC TAB* 81 MG TAB.EC PO SCH (07:33)
[2017-11-14] MEDS: CMCS:Oxymorphone ER (NF) 5 MG TAB PO SCH ×2 (07:34→20:43)
[2017-11-14] MEDS: Simethicone TAB* 80 MG TAB.CHEW PO SCH ×3 (07:34→18:07)
[2017-11-14] MEDS: Spironolactone TAB* 25 MG PO SCH (07:35)
[2017-11-14] MEDS: Cholecalciferol TAB* 400 UNIT PO SCH (07:35)
[2017-11-14] MEDS: oxyCODONE TAB* 5 MG TAB PO PRN ×2 (07:35→16:30)
[2017-11-14] MEDS: Calcium Carbonate TAB* 1250 MG (CALCIUM 500 MG) PO SCH (07:35)
[2017-11-14] MEDS: Famotidine TAB* 20 MG PO SCH (07:35)
[2017-11-14] MEDS: Metoprolol Succinate XL TAB* 25 MG PO SCH (07:35)
[2017-11-14] MEDS: Diltiazem CD CAP* 120 MG PO SCH (07:43)
[2017-11-14] MEDS ORDERED: Spiriva Inhaler DEVICE* 1 EACH DEVICE INH ONE (09:00)
[2017-11-14] MEDS: Tiotropium CAP.INH* CAP.INH/18 MCG (USE ORDER SET !) INH SCH (09:56)
[2017-11-14] MEDS: Mometasone/Formoter 200/5 MDI INH SCH ×2 (09:56→20:27)
[2017-11-14] MEDS: Ondansetron 40 MG VIAL* 2 MG/ML 20 ML VIAL IV PRN (10:30)
--- NOTE | 2017-11-14 17:31 | PN ---
Subjective Date of Service: 11/14/17 Interval History: Patient was seen and examined earlier today. Complains of right foot pain, however able to bear weight on RLE and ambulating using her walker. Denies any calf pain, chest pain, palpitations or SOB. Family History: Unchanged from Admission Social History: Unchanged from Admission Past Medical History: Unchanged from Admission Objective Active Medications: Aspirin (Aspirin Ec Tab*) 81 mg PO DAILY [facility] Last Admin: 11/14/17 07:33 Dose: 81 mg Calcium Carbonate (Calcium Carbonate Tab*) 1,250 mg PO DAILY [facility] Last Admin: 11/14/17 07:35 Dose: 1,250 mg Cholecalciferol (Vitamin D Tab*) 800 unit PO DAILY [facility] Last Admin: 11/14/17 07:35 Dose: 800 unit Diltiazem HCl (Cardizem Cd Cap*) 120 mg PO DAILY [facility] Last Admin: 11/14/17 07:43 Dose: 120 mg Docusate Sodium (Colace Cap*) 100 mg PO DAILY [facility] Last Admin: 11/14/17 07:33 Dose: 100 mg Famotidine (Pepcid Tab*) 20 mg PO QAM [facility] PRN Reason: Protocol Last Admin: 11/14/17 07:35 Dose: 20 mg Ipratropium [place] (Atrovent 0.5 Mg Neb.Stacie*) 0.5 mg INH Q4H PRN PRN Reason: SOB/WHEEZING Levalbuterol HCl (Xopenex Hfa Inhaler*) 2 puff INH QID PRN PRN Reason: SOB/WHEEZING Levothyroxine Sodium (Synthroid Tab*) 25 mcg PO DAILY@0600 [facility] Last Admin: 11/14/17 05:59 Dose: 25 mcg Lorazepam (Ativan Tab(*)) 0.5 mg PO BID PRN PRN Reason: ANXIETY Metoprolol Succinate (Toprol Xl Tab*) 25 mg PO DAILY [facility] Last Admin: 11/14/17 07:35 Dose: 25 mg Mometasone Furoate/Formoterol Fumar (Dulera 200/5 Mdi*) 2 puff INH BID [facility] PRN Reason: Protocol Last Admin: 11/14/17 09:56 Dose: Not Given Morphine Sulfate (Morphine Vial*) 4 mg IV Q4H PRN PRN Reason: PAIN - MILD Nitroglycerin (Nitroglycerin Tab 0.4 Mg*) 0.4 mg SL Q5M PRN PRN Reason: PAIN - CHEST Omeprazole (Prilosec Cap*) 40 mg PO BID [facility] Last Admin: 11/14/17 07:33 Dose: 40 mg Ondansetron HCl (Zofran Inj*) 4 mg IV Q6H PRN PRN Reason: NAUSEA Last Admin: 11/14/17 10:30 Dose: 4 mg Oxycodone HCl (Roxycodone Tab*) 15 mg PO Q4H PRN PRN Reason: PAIN Last Admin: 11/14/17 16:30 Dose: 15 mg Oxymorphone HCl (Opana Er (Nf)) 15 mg PO BID [facility] Last Admin: 11/14/17 07:34 Dose: 15 mg Polyethylene Glycol/Electrolytes (Miralax*) 17 gm PO QAM [facility] Last Admin: 11/14/17 07:33 Dose: 17 gm Simethicone (Mylicon Tab*) 120 mg PO TID PC [facility] Last Admin: 11/14/17 12:50 Dose: 120 mg Spironolactone (Aldactone Tab*) 25 mg PO DAILY [facility] Last Admin: 11/14/17 07:35 Dose: 25 mg Tiotropium [place] (Spiriva Cap.Inh*) 1 cap INH DAILY [facility] Last Admin: 11/14/17 09:56 Dose: Not Given Vital Signs - 8 hr 11/14/17 11/14/17 11/14/17 09:30 11:48 16:30 Temperature 98.3 F Pulse Rate 55 Respiratory 20 12 20 Rate Blood Pressure 92/40 (mmHg) O2 Sat by Pulse 96 Oximetry Oxygen Devices in Use Now: Nasal Cannula Appearance: Appears comfortable, reading newspaper and in NAD. Eyes: No Scleral Icterus, PERRLA Ears/Nose/Mouth/Throat: Clear Oropharnyx, Mucous Membranes Moist Neck: NL Appearance and Movements; NL JVP, Trachea Midline Respiratory: Symmetrical Chest Expansion and Respiratory Effort, Clear to Auscultation Cardiovascular: NL Sounds; No Murmurs; No JVD, RRR Abdominal: NL Sounds; No Tenderness; No Distention Extremities: No Edema, - - Right posterior thigh with a large area of ecchymosis , extending from right gluteal area to just above polpteal area. No tenderness on palpation. No cord-like masses or nodules. Neurological: Alert and Oriented x 3, NL Sensation Nutrition: Taking PO's Result Diagrams: 11/14/17 04:42 11/13/17 14:57 Additional Lab and Data: Lab Results 11/13/17 Range/Units 14:57 WBC 5.4 (3.5-10.8) 10^3/ul RBC 3.15 L (4.0-5.4) 10^6/ul Hgb 8.7 L (12.0-16.0) g/dl Hct 28 L (35-47) % MCV 88 (80-97) fL MCH 28 (27-31) pg MCHC 31 (31-36) g/dl RDW 21 H (10.5-15) % Plt Count Pending MPV Pending Neut % (Auto) Pending Lymph % (Auto) Pending [place] % (Auto) Pending Eos % (Auto) Pending Baso % (Auto) Pending Absolute Neuts (auto) Pending Absolute Lymphs (auto) Pending Absolute Monos (auto) Pending Absolute Eos (auto) Pending Absolute Basos (auto) Pending Absolute Nucleated RBC Pending Nucleated RBC % Pending Diagnostic Imaging: Patient Name: JOHN PAUL LAURENT Medical Record#: [id number] Ordering Physician: Jorge L Dubon MD Acct.#: [id number] : 1930 Age: 87 Sex: F Location: EMERGENCY DEPARTMENT Exam Date: 11/13/171439 ADM Status: REG ER Order Information: FOOT RIGHT 2 S Accession Number: [id number] CPT: 51929 HISTORY: Fall, right foot pain COMPARISONS: April 21, 2014 VIEWS: 2, Frontal and lateral views of the right foot IMPRESSION: 1. OSTEOPENIA. 2. OSTEOARTHRITIS. 3. NO ACUTE OSSEOUS INJURY. THE DEGREE OF OSTEOPENIA MAY MAKE A NONDISPLACED FRACTURE RADIOGRAPHICALLY OCCULT. IF SYMPTOMS PERSIST, RECOMMEND REPEAT IMAGING. VIEWS: 1, Single frontal view of the pelvis IMPRESSION: OSTEOARTHRITIS. NO ACUTE OSSEOUS INJURY. IF SYMPTOMS PERSIST, RECOMMEND REPEAT IMAGING. VIEWS: 1: frontal portable view of the chest at 3:45 PM. The patient is obliqued to the right. IMPRESSION: HYPERINFLATION. NO ACTIVE CARDIOPULMONARY DISEASE. Assess/Plan/Problems-Billing Assessment: An 87 y/o female with hx COPD, HTN and A-fib, on Coumadin although currently subtheraputic, who presented to ED after sustaining a mechanical fall at home, with large right posterior thigh hematoma and no apparent bony injury. - Patient Problems (1) Fall Current Visit: Yes Status: Acute Comment: - No apperant head trauma or LOC - Negative xrays for plevis and right foot - PT eval, pain meds - If no improvement, may repeat xrays for possible occult hairline fracture (2) Traumatic hematoma of right thigh Current Visit: Yes Status: Acute Comment: - Supportive care - Coumadin on hold - H/H stable, will check again in AM (3) Subtherapeutic international normalized ratio (INR) Current Visit: Yes Status: Acute Comment: - Coumadin remains on hold due to drop in H/H - Appears to be hemodynamically stable (4) Afib Current Visit: No Status: Chronic Comment: - Rate controlled (5) COPD (chronic obstructive pulmonary disease) Current Visit: No Status: Chronic Comment: - No acute exacerbation - Cont home inhaled medications (6) Chronic kidney disease Current Visit: Yes Status: Acute Comment: - Stable (7) Hypertension Current Visit: Yes Status: Acute Comment: - Continue Diltiazem and Metoprolol - Hold Lasix for now (8) Hypothyroidism Current Visit: No Status: Chronic Comment: - Continue current levothyroxine dose (9) DVT prophylaxis Current Visit: No Status: Acute Comment: - Warfarin on hole due to large hematome - Mechanical prophylaxis on hold due to pain - Early ambulation as tolerated (10) Full code status Current Visit: No Status: Acute Status and Disposition: Inpatient for pain management and H/H recheck. Will resume anticoagulation therapy when medically stable prior to discharge.
[2017-11-14] MEDS: LORazepam TAB(*) 0.5 MG PO PRN (23:35)
[2017-11-15] MEDS: oxyCODONE TAB* 5 MG TAB PO PRN ×3 (03:18→18:12)
[2017-11-15] MEDS: Levothyroxine TAB* 25 MCG TAB PO SCH (06:11)
[2017-11-15 07:59] LABS: ABS Basophils 0 10^3/ul (0-0.2); ABS Eosinophils 0.1 10^3/ul (0-0.6); ABS Lymphocytes 1.3 10^3/ul (1.0-4.8); ABS Monocytes 0.5 10^3/ul (0-0.8); ABS Neutrophils 2.5 10^3/ul (1.5-7.7); ABS Nucleated RBC 0 10^3/ul; Eosinophil % 1.3 % (0-6); Hematocrit 27 % (35-47); Hemoglobin 8.5 g/dl (12.0-16.0); Lymphocyte % 30.4 % (25-47); Mean Corpuscular HGB Conc 32 g/dl (31-36); Mean Corpuscular Hemoglobin 28 pg (27-31); Mean Corpuscular Volume 88 fL (80-97); Mean Platelet Volume 9.2 um3 (7.4-10.4); Nucleated Red Blood Cells % 0.1; Platelet Count 116 10^3/ul (150-450); Red Blood Count 3.05 10^6/ul (4.0-5.4); Red Cell Distribution Width 21 % (10.5-15); White Blood Count 4.4 10^3/ul (3.5-10.8)
[2017-11-15] MEDS: Mometasone/Formoter 200/5 MDI INH SCH ×2 (08:30→20:01)
[2017-11-15] MEDS: Tiotropium CAP.INH* CAP.INH/18 MCG (USE ORDER SET !) INH SCH (08:30)
[2017-11-15] MEDS: Cholecalciferol TAB* 400 UNIT PO SCH (09:04)
[2017-11-15] MEDS: Diltiazem CD CAP* 120 MG PO SCH (09:04)
[2017-11-15] MEDS: Metoprolol Succinate XL TAB* 25 MG PO SCH (09:04)
[2017-11-15] MEDS: Famotidine TAB* 20 MG PO SCH (09:04)
[2017-11-15] MEDS: Docusate CAP* 100 MG PO SCH (09:05)
[2017-11-15] MEDS: Simethicone TAB* 80 MG TAB.CHEW PO SCH ×3 (09:05→18:12)
[2017-11-15] MEDS: Spironolactone TAB* 25 MG PO SCH (09:06)
[2017-11-15] MEDS: Omeprazole CAP* 20 MG PO SCH ×2 (09:06→20:53)
[2017-11-15] MEDS: Aspirin EC TAB* 81 MG TAB.EC PO SCH (09:06)
[2017-11-15] MEDS: Calcium Carbonate TAB* 1250 MG (CALCIUM 500 MG) PO SCH (09:07)
[2017-11-15] MEDS: Polyethylene Glycol 3350* 17 GM PACKET PO SCH (09:13)
[2017-11-15] MEDS: CMCS:Oxymorphone ER (NF) 5 MG TAB PO SCH ×2 (11:01→20:52)
[2017-11-15] MEDS: Ondansetron 40 MG VIAL* 2 MG/ML 20 ML VIAL IV PRN ×2 (13:40→19:29)
--- NOTE | 2017-11-15 16:49 | PN ---
Subjective Date of Service: 11/15/17 Interval History: Mrs. Saldana is doing a little better today. Still having RLE pain with weight bearing, but not any worse. Denies chest pain, palpitations or SOB. Ambulating to bathroom, feels steady using her walker, but not for a long time due to pain. She thinks she won't be able to take care of herself at home since she lives alone. Would like to discuss possible STR at a SNF upon discharge. Family History: Unchanged from Admission Social History: Unchanged from Admission Past Medical History: Unchanged from Admission Objective Active Medications: Aspirin (Aspirin Ec Tab*) 81 mg PO DAILY [facility] Last Admin: 11/15/17 09:06 Dose: 81 mg Calcium Carbonate (Calcium Carbonate Tab*) 1,250 mg PO DAILY [facility] Last Admin: 11/15/17 09:07 Dose: 1,250 mg Cholecalciferol (Vitamin D Tab*) 800 unit PO DAILY [facility] Last Admin: 11/15/17 09:04 Dose: 800 unit Diltiazem HCl (Cardizem Cd Cap*) 120 mg PO DAILY [facility] Last Admin: 11/15/17 09:04 Dose: 120 mg Docusate Sodium (Colace Cap*) 100 mg PO DAILY [facility] Last Admin: 11/15/17 09:05 Dose: 100 mg Famotidine (Pepcid Tab*) 20 mg PO QAM [facility] PRN Reason: Protocol Last Admin: 11/15/17 09:04 Dose: 20 mg Ipratropium [place] (Atrovent 0.5 Mg Neb.Stacie*) 0.5 mg INH Q4H PRN PRN Reason: SOB/WHEEZING Levalbuterol HCl (Xopenex Hfa Inhaler*) 2 puff INH QID PRN PRN Reason: SOB/WHEEZING Levothyroxine Sodium (Synthroid Tab*) 25 mcg PO DAILY@0600 [facility] Last Admin: 11/15/17 06:11 Dose: 25 mcg Lorazepam (Ativan Tab(*)) 0.5 mg PO BID PRN PRN Reason: ANXIETY Last Admin: 11/14/17 23:35 Dose: 0.5 mg Metoprolol Succinate (Toprol Xl Tab*) 25 mg PO DAILY [facility] Last Admin: 11/15/17 09:04 Dose: 25 mg Mometasone Furoate/Formoterol Fumar (Dulera 200/5 Mdi*) 2 puff INH BID [facility] PRN Reason: Protocol Last Admin: 11/15/17 08:30 Dose: 2 puff Morphine Sulfate (Morphine Vial*) 4 mg IV Q4H PRN PRN Reason: PAIN - MILD Nitroglycerin (Nitroglycerin Tab 0.4 Mg*) 0.4 mg SL Q5M PRN PRN Reason: PAIN - CHEST Omeprazole (Prilosec Cap*) 40 mg PO BID [facility] Last Admin: 11/15/17 09:06 Dose: 40 mg Ondansetron HCl (Zofran Inj*) 4 mg IV Q6H PRN PRN Reason: NAUSEA Last Admin: 11/15/17 13:40 Dose: 4 mg Oxycodone HCl (Roxycodone Tab*) 15 mg PO Q4H PRN PRN Reason: PAIN Last Admin: 11/15/17 09:10 Dose: 15 mg Oxymorphone HCl (Opana Er (Nf)) 15 mg PO BID [facility] Last Admin: 11/15/17 11:01 Dose: 15 mg Polyethylene Glycol/Electrolytes (Miralax*) 17 gm PO QAM [facility] Last Admin: 11/15/17 09:13 Dose: 17 gm Simethicone (Mylicon Tab*) 120 mg PO TID PC [facility] Last Admin: 11/15/17 11:55 Dose: 120 mg Spironolactone (Aldactone Tab*) 25 mg PO DAILY [facility] Last Admin: 11/15/17 09:06 Dose: 25 mg Tiotropium [place] (Spiriva Cap.Inh*) 1 cap INH DAILY [facility] Last Admin: 11/15/17 08:30 Dose: 1 cap Vital Signs - 8 hr 11/15/17 11/15/17 11/15/17 09:10 11:01 11:13 Temperature Pulse Rate Respiratory 18 16 16 Rate Blood Pressure (mmHg) O2 Sat by Pulse Oximetry 11/15/17 11/15/17 11:50 12:50 Temperature 97.8 F Pulse Rate 61 Respiratory 16 16 Rate Blood Pressure 85/40 92/42 (mmHg) O2 Sat by Pulse 97 Oximetry Oxygen Devices in Use Now: Nasal Cannula Appearance: Laying in bed, reading a book, appears comfortable and in NAD. Eyes: No Scleral Icterus, PERRLA Ears/Nose/Mouth/Throat: Clear Oropharnyx, Mucous Membranes Moist Neck: NL Appearance and Movements; NL JVP, Trachea Midline Respiratory: Symmetrical Chest Expansion and Respiratory Effort, Clear to Auscultation Cardiovascular: NL Sounds; No Murmurs; No JVD, RRR Abdominal: NL Sounds; No Tenderness; No Distention Extremities: No Edema, - - Right posterior thigh with some resolution of large ecchymotic area compared to exam yesterday. No swelling, tenderness or masses noted. Right foot with mild 1st and 2nd metatarsal tenderness, without swelling or ecchymosis. pedal pulse intact. Skin: No Rash or Ulcers Neurological: Alert and Oriented x 3, NL Sensation, NL Muscle Strength and Tone Nutrition: Taking PO's Result Diagrams: 11/15/17 07:13 11/13/17 14:57 Additional Lab and Data: Lab Results 11/13/17 Range/Units 14:57 WBC 5.4 (3.5-10.8) 10^3/ul RBC 3.15 L (4.0-5.4) 10^6/ul Hgb 8.7 L (12.0-16.0) g/dl Hct 28 L (35-47) % MCV 88 (80-97) fL MCH 28 (27-31) pg MCHC 31 (31-36) g/dl RDW 21 H (10.5-15) % Plt Count Pending MPV Pending Neut % (Auto) Pending Lymph % (Auto) Pending [place] % (Auto) Pending Eos % (Auto) Pending Baso % (Auto) Pending Absolute Neuts (auto) Pending Absolute Lymphs (auto) Pending Absolute Monos (auto) Pending Absolute Eos (auto) Pending Absolute Basos (auto) Pending Absolute Nucleated RBC Pending Nucleated RBC % Pending Microbiology and Other Data: . Diagnostic Imaging: . EKG Data: . Assess/Plan/Problems-Billing Assessment: An 87 y/o female with hx COPD, HTN and A-fib, on Coumadin although currently subtheraputic, who presented to ED after sustaining a mechanical fall at home, with large right posterior thigh hematoma and no apparent bony injury. - Patient Problems (1) Fall Current Visit: Yes Status: Acute Comment: - No apperant head trauma or LOC - Negative xrays for plevis and right foot - PT eval, pain meds - If no improvement, may repeat xrays for possible occult hairline fracture of R foot - Patient has difficulty ambulating for extended periods due to pain, would like to conside SNF placement. (2) Traumatic hematoma of right thigh Current Visit: Yes Status: Acute Comment: - Supportive care - Coumadin on hold - H/H stable after another recheck - Appears to be gradually resolving (3) Subtherapeutic international normalized ratio (INR) Current Visit: Yes Status: Acute Comment: - Coumadin remains on hold due to initial drop in H/H - Appears to be hemodynamically stable - Discussed with Dr. Polk, plan to hold Coumadin for 2 weeks (4) Afib Current Visit: No Status: Chronic Comment: - Rate controlled (5) COPD (chronic obstructive pulmonary disease) Current Visit: No Status: Chronic Comment: - No acute exacerbation - Cont home inhaled medications (6) Chronic kidney disease Current Visit: Yes Status: Acute Comment: - Stable (7) Hypertension Current Visit: Yes Status: Acute Comment: - Continue Diltiazem and Metoprolol - Hold Lasix for now (8) Hypothyroidism Current Visit: No Status: Chronic Comment: - Continue current levothyroxine dose (9) DVT prophylaxis Current Visit: No Status: Acute Comment: - Warfarin on hole due to large hematome - Mechanical prophylaxis on hold due to pain - Early ambulation as tolerated (10) Full code status Current Visit: No Status: Acute Status and Disposition: Inpatient for pain management and H/H recheck. Will coordinate d/c plans with social services manager, patient initially wanted to go [facility] home, but now does not think she can care for herself. She lives alone in her residence. Will await placement at SNF for short term rehab.
[2017-11-15] MEDS: Morphine VIAL* 4 MG/ML VIAL (1 ml vial) IV PRN (18:54)
[2017-11-15] MEDS: LORazepam TAB(*) 0.5 MG PO PRN (23:34)
[2017-11-15] MEDS ORDERED: Artificial Tears* 15 ML BTL BOTH EYES PRN (23:40)
[2017-11-16] MEDS: oxyCODONE TAB* 5 MG TAB PO PRN (03:59)
[2017-11-16] MEDS: Levothyroxine TAB* 25 MCG TAB PO SCH (05:56)
[2017-11-16] MEDS: Mometasone/Formoter 200/5 MDI INH SCH ×2 (07:39→19:58)
[2017-11-16] MEDS: Tiotropium CAP.INH* CAP.INH/18 MCG (USE ORDER SET !) INH SCH (07:39)
[2017-11-16] MEDS: Morphine VIAL* 4 MG/ML VIAL (1 ml vial) IV PRN (07:44)
[2017-11-16] MEDS: Polyethylene Glycol 3350* 17 GM PACKET PO SCH (08:31)
[2017-11-16] MEDS: CMCS:Oxymorphone ER (NF) 5 MG TAB PO SCH ×2 (08:31→22:19)
[2017-11-16] MEDS: Omeprazole CAP* 20 MG PO SCH ×2 (08:32→22:18)
[2017-11-16] MEDS: Docusate CAP* 100 MG PO SCH (08:32)
[2017-11-16] MEDS: Diltiazem CD CAP* 120 MG PO SCH (08:32)
[2017-11-16] MEDS: Spironolactone TAB* 25 MG PO SCH (08:32)
[2017-11-16] MEDS: Cholecalciferol TAB* 400 UNIT PO SCH (08:32)
[2017-11-16] MEDS: Metoprolol Succinate XL TAB* 25 MG PO SCH (08:32)
[2017-11-16] MEDS: Famotidine TAB* 20 MG PO SCH (08:32)
[2017-11-16] MEDS: Aspirin EC TAB* 81 MG TAB.EC PO SCH (08:32)
[2017-11-16] MEDS: Simethicone TAB* 80 MG TAB.CHEW PO SCH ×3 (08:33→16:56)
[2017-11-16] MEDS: Calcium Carbonate TAB* 1250 MG (CALCIUM 500 MG) PO SCH (08:33)
[2017-11-16] MEDS ORDERED: Acetaminophen TAB* 325 MG PO PRN (13:39)
--- NOTE | 2017-11-16 15:51 | RAD ---
INDICATION: Left foot pain. No trauma. Performed on both the. COMPARISON: None TECHNIQUE: AP and lateral views were obtained. FINDINGS: There is osteopenia. There is no acute bony change. The soft tissues are mildly edematous. There are vascular calcifications. IMPRESSION: NO ACUTE BONY FINDINGS.
--- NOTE | 2017-11-16 16:01 | PN ---
Subjective Date of Service: 11/16/17 Interval History: Mrs. Laurent c/o left foot pain today. Her right foot has been bothering her since admission, had a negative xray, but today pain has shifted to left foot. Denies any injury or fall. Pain to the sole of foot, does not change with weight bearing. Denies any RLE pain today. Still with difficulty ambulating due to pain. Discussed her current living situation, she does not think she can care for self at this time due to decreased mobility secondary to pain. She is still considering placement for STR at [facility]. Family History: Unchanged from Admission Social History: Unchanged from Admission Past Medical History: Unchanged from Admission Objective Active Medications: Acetaminophen (Tylenol Tab*) 650 mg PO Q6H PRN PRN Reason: FEVER/PAIN Aspirin (Aspirin Ec Tab*) 81 mg PO DAILY [facility] Last Admin: 11/16/17 08:32 Dose: 81 mg Calcium Carbonate (Calcium Carbonate Tab*) 1,250 mg PO DAILY [facility] Last Admin: 11/16/17 08:33 Dose: 1,250 mg Cholecalciferol (Vitamin D Tab*) 800 unit PO DAILY [facility] Last Admin: 11/16/17 08:32 Dose: 800 unit Diltiazem HCl (Cardizem Cd Cap*) 120 mg PO DAILY [facility] Last Admin: 11/16/17 08:32 Dose: 120 mg Docusate Sodium (Colace Cap*) 100 mg PO DAILY [facility] Last Admin: 11/16/17 08:32 Dose: 100 mg Famotidine (Pepcid Tab*) 20 mg PO QAM [facility] PRN Reason: Protocol Last Admin: 11/16/17 08:32 Dose: 20 mg Ipratropium Clifford (Atrovent 0.5 Mg Neb.Stacie*) 0.5 mg INH Q4H PRN PRN Reason: SOB/WHEEZING Levalbuterol HCl (Xopenex Hfa Inhaler*) 2 puff INH QID PRN PRN Reason: SOB/WHEEZING Levothyroxine Sodium (Synthroid Tab*) 25 mcg PO DAILY@0600 [facility] Last Admin: 11/16/17 05:56 Dose: 25 mcg Lorazepam (Ativan Tab(*)) 0.5 mg PO BID PRN PRN Reason: ANXIETY Last Admin: 11/15/17 23:34 Dose: 0.5 mg Metoprolol Succinate (Toprol Xl Tab*) 25 mg PO DAILY [facility] Last Admin: 11/16/17 08:32 Dose: 25 mg Mometasone Furoate/Formoterol Fumar (Dulera 200/5 Mdi*) 2 puff INH BID [facility] PRN Reason: Protocol Last Admin: 11/16/17 07:39 Dose: 2 puff Morphine Sulfate (Morphine Vial*) 4 mg IV Q4H PRN PRN Reason: PAIN - MILD Last Admin: 11/16/17 07:44 Dose: 4 mg Nitroglycerin (Nitroglycerin Tab 0.4 Mg*) 0.4 mg SL Q5M PRN PRN Reason: PAIN - CHEST Omeprazole (Prilosec Cap*) 40 mg PO BID [facility] Last Admin: 11/16/17 08:32 Dose: 40 mg Ondansetron HCl (Zofran Inj*) 4 mg IV Q6H PRN PRN Reason: NAUSEA Last Admin: 11/15/17 19:29 Dose: 4 mg Oxycodone HCl (Roxycodone Tab*) 15 mg PO Q4H PRN PRN Reason: PAIN Last Admin: 11/16/17 03:59 Dose: 15 mg Oxycodone/Acetaminophen (Percocet 5/325 Tab*) 1 tab PO Q4H PRN PRN Reason: PAIN - MODERATE Oxymorphone HCl (Opana Er (Nf)) 15 mg PO BID [facility] Last Admin: 11/16/17 08:31 Dose: 15 mg Polyethylene Glycol/Electrolytes (Miralax*) 17 gm PO QAM [facility] Last Admin: 11/16/17 08:31 Dose: 17 gm Polyvinyl Alcohol (Polyvinyl Alcohol 1.4% Opth*) 1 drop BOTH EYES Q2H PRN PRN Reason: DRY EYE Simethicone (Mylicon Tab*) 120 mg PO TID PC [facility] Last Admin: 11/16/17 12:21 Dose: 120 mg Spironolactone (Aldactone Tab*) 25 mg PO DAILY [facility] Last Admin: 11/16/17 08:32 Dose: 25 mg Tiotropium Clifford (Spiriva Cap.Inh*) 1 cap INH DAILY [facility] Last Admin: 11/16/17 07:39 Dose: 1 cap Vital Signs - 8 hr 11/16/17 11/16/17 11/16/17 07:59 08:00 08:31 Temperature 98.0 F Pulse Rate 62 Respiratory 20 16 15 Rate Blood Pressure 113/48 (mmHg) O2 Sat by Pulse 98 Oximetry 11/16/17 11/16/17 11/16/17 08:33 08:44 11:00 Temperature Pulse Rate Respiratory 15 14 14 Rate Blood Pressure (mmHg) O2 Sat by Pulse Oximetry 11/16/17 11/16/17 11:09 15:32 Temperature 98.8 F 98.1 F Pulse Rate 55 58 Respiratory 15 16 Rate Blood Pressure 100/43 106/45 (mmHg) O2 Sat by Pulse 98 100 Oximetry Oxygen Devices in Use Now: Nasal Cannula Appearance: Sitting on her chair reading, appears comfortable and in NAD. Eyes: No Scleral Icterus, PERRLA Ears/Nose/Mouth/Throat: Clear Oropharnyx, Mucous Membranes Moist Neck: NL Appearance and Movements; NL JVP, Trachea Midline Respiratory: Symmetrical Chest Expansion and Respiratory Effort, Clear to Auscultation Cardiovascular: NL Sounds; No Murmurs; No JVD, RRR Abdominal: NL Sounds; No Tenderness; No Distention Extremities: - - Left foot exam with moderate tenderness at mid-sole. No swelling or ecchymosis noted. Pedal pulse intact. RLE exam unchanged. Posterior thigh hematoma continues to resolve. Neurological: Alert and Oriented x 3, NL Sensation, NL Muscle Strength and Tone Nutrition: Taking PO's Result Diagrams: 11/15/17 07:13 11/13/17 14:57 Additional Lab and Data: Lab Results 11/13/17 Range/Units 14:57 WBC 5.4 (3.5-10.8) 10^3/ul RBC 3.15 L (4.0-5.4) 10^6/ul Hgb 8.7 L (12.0-16.0) g/dl Hct 28 L (35-47) % MCV 88 (80-97) fL MCH 28 (27-31) pg MCHC 31 (31-36) g/dl RDW 21 H (10.5-15) % Plt Count Pending MPV Pending Neut % (Auto) Pending Lymph % (Auto) Pending [place] % (Auto) Pending Eos % (Auto) Pending Baso % (Auto) Pending Absolute Neuts (auto) Pending Absolute Lymphs (auto) Pending Absolute Monos (auto) Pending Absolute Eos (auto) Pending Absolute Basos (auto) Pending Absolute Nucleated RBC Pending Nucleated RBC % Pending Microbiology and Other Data: . Diagnostic Imaging: Patient Name: JOHN PAUL LAURENT Medical Record#: [id number] Ordering Physician: Pedro LINDSAY Acct.#: [id number] : 1930 Age: 87 Sex: F Location: [address] [place] [address] - MEDICAL Exam Date: 11/16/17 1338 ADM Status: ADM IN Order Information: FOOT LEFT 2 VWS Accession Number: [id number] CPT: 86863 INDICATION: Left foot pain. No trauma. Performed on both the. COMPARISON: None TECHNIQUE: AP and lateral views were obtained. FINDINGS: There is osteopenia. There is no acute bony change. The soft tissues are mildly edematous. There are vascular calcifications. IMPRESSION: NO ACUTE BONY FINDINGS. EKG Data: . Assess/Plan/Problems-Billing Assessment: An 87 y/o female with hx COPD, HTN and A-fib, on Coumadin although currently subtheraputic, who presented to ED after sustaining a mechanical fall at home, with large right posterior thigh hematoma and no apparent bony injury. - Patient Problems (1) Fall Current Visit: Yes Status: Acute Comment: - No apperant head trauma or LOC - Negative xrays for plevis and right foot - New onset left foot pain without trauma or injury, negative xray, likely arthritis - PT eval, pain meds - Patient has difficulty ambulating for extended periods due to pain, would like to conside SNF placement. (2) Traumatic hematoma of right thigh Current Visit: Yes Status: Acute Comment: - Supportive care - Coumadin on hold - H/H stable after another recheck - Appears to be gradually resolving (3) Subtherapeutic international normalized ratio (INR) Current Visit: Yes Status: Acute Comment: - Coumadin remains on hold due to initial drop in H/H - Appears to be hemodynamically stable - Discussed with Dr. Polk, plan to hold Coumadin for 2 weeks (4) Afib Current Visit: No Status: Chronic Comment: - Rate controlled (5) COPD (chronic obstructive pulmonary disease) Current Visit: No Status: Chronic Comment: - No acute exacerbation - Cont home inhaled medications (6) Chronic kidney disease Current Visit: Yes Status: Acute Comment: - Stable (7) Hypertension Current Visit: Yes Status: Acute Comment: - Continue Diltiazem and Metoprolol - Hold Lasix for now (8) Hypothyroidism Current Visit: No Status: Chronic Comment: - Continue current levothyroxine dose (9) DVT prophylaxis Current Visit: No Status: Acute Comment: - Warfarin on hole due to large hematome - Mechanical prophylaxis on hold due to pain - Early ambulation as tolerated (10) Full code status Current Visit: No Status: Acute Status and Disposition: Inpatient for pain management and H/H recheck. Will coordinate d/c plans with social economist, patient initially wanted to go back home, but now does not think she can care for herself. She lives alone in her residence. Await placement.
[2017-11-16] MEDS: oxyCODONE/Acetamin 5/325 MG* TAB PO PRN (16:56)
[2017-11-16] MEDS: Ondansetron 40 MG VIAL* 2 MG/ML 20 ML VIAL IV PRN (22:08)
[2017-11-17] MEDS: oxyCODONE TAB* 5 MG TAB PO PRN (03:30)
[2017-11-17] MEDS: Levothyroxine TAB* 25 MCG TAB PO SCH (07:06)
[2017-11-17 07:45] VITALS: BP 125/51
[2017-11-17] MEDS: Polyethylene Glycol 3350* 17 GM PACKET PO SCH (08:18)
[2017-11-17] MEDS: CMCS:Oxymorphone ER (NF) 5 MG TAB PO SCH (08:20)
[2017-11-17] MEDS: Famotidine TAB* 20 MG PO SCH (08:20)
[2017-11-17] MEDS: Diltiazem CD CAP* 120 MG PO SCH (08:20)
[2017-11-17] MEDS: Aspirin EC TAB* 81 MG TAB.EC PO SCH (08:21)
[2017-11-17] MEDS: Cholecalciferol TAB* 400 UNIT PO SCH (08:21)
[2017-11-17] MEDS: Omeprazole CAP* 20 MG PO SCH (08:21)
[2017-11-17] MEDS: Docusate CAP* 100 MG PO SCH (08:21)
[2017-11-17] MEDS: Spironolactone TAB* 25 MG PO SCH (08:21)
[2017-11-17] MEDS: Simethicone TAB* 80 MG TAB.CHEW PO SCH ×2 (08:21→12:51)
[2017-11-17] MEDS: Calcium Carbonate TAB* 1250 MG (CALCIUM 500 MG) PO SCH (08:21)
[2017-11-17] MEDS: Metoprolol Succinate XL TAB* 25 MG PO SCH (08:21)
[2017-11-17] MEDS: Mometasone/Formoter 200/5 MDI INH SCH (08:33)
[2017-11-17] MEDS: Tiotropium CAP.INH* CAP.INH/18 MCG (USE ORDER SET !) INH SCH (08:34)
[2017-11-17] MEDS: oxyCODONE/Acetamin 5/325 MG* TAB PO PRN (12:51)
--- NOTE | 2017-11-18 17:13 | DS ---
CC: Dr. Thompson * DISCHARGE SUMMARY: DATE OF ADMISSION: 11/13/17 DATE OF DISCHARGE: 11/17/17 ATTENDING HOSPITALIST: Shoshana Miranda DO * (DICTATED BY NEFTALI PADGETT) ADMITTING PHYSICIAN: Melanie Polk DO ADMISSION DIAGNOSES: 1. Fall with leg pain. 2. Right posterior thigh hematoma. 3. Atrial fibrillation. 4. Chronic obstructive pulmonary disease. 5. Chronic arthritic pains. 6. Hypothyroidism. 7. Diastolic congestive heart failure. 8. Tricuspid regurgitation. 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 10. Hypertension. 11. Coronary artery disease. DISCHARGE DIAGNOSES: 1. Fall with leg pain. 2. Right posterior thigh hematoma. 3. Atrial fibrillation. 4. Chronic obstructive pulmonary disease. 5. Chronic arthritic pains. 6. Hypothyroidism. 7. Diastolic congestive heart failure. 8. Tricuspid regurgitation. 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 10. Hypertension. 11. Coronary artery disease. CONSULTATIONS: None. HISTORY OF PRESENT ILLNESS: Mrs. Saldana is a pleasant 87-year-old female with past medical history significant for atrial fibrillation, for which she has been on Coumadin chronically. She also has a history of COPD, for which she has been on home oxygen during the night and during her sleep. She presented to the emergency room on 11/13/17 after she sustained a fall at home. She described it as doing mild exercises at home by standing and kneeling down when she felt that her knees give up on her and she fell backwards. She states that when she fell backwards, she hit her thighs on a chair and then she noticed a lot of pain and was not able to stand up afterwards. She was found by a friend to be on the floor, called ambulance, and brought her to the emergency room. She had a remarkable bruise on her right posterior thigh, but there was no bony injury on x-rays done for the pelvis and knees. Given the fact that she has been on Coumadin for AFib and the large size of her posterior thigh hematoma, she was admitted for observation. HOSPITAL COURSE: The patient was admitted on 11/13/17 under medical services initially for observation, then converted to inpatient services. She had a mild -to- moderate pain to her thigh hematoma that was relieved using Tylenol or Percocet as needed. She was ambulatory out of bed with some assistance as well as using a walker. PT and OT was obtained. Thankfully, the patient had a laboratory workup that revealed that her INR level was 1.3, which was subtherapeutic. Her H and H was checked on the first couple of days. There was initial drop in her hemoglobin and hematocrit with values of 8.7 and 28 respectively on admission. These values were remained almost the same in the next couple of days revealing no evidence of active bleeding. The patient continued to improve slowly and complained of right foot and then left foot pain on 2 separate occasions. Followup x-rays were done revealed no bony injury or evidence of fracture. She continued to improve slowly and we initially discussed with her placement to short-term rehab that the patient strongly refused. She continued doing her physical therapy and felt to be safe and secured to go home upon discharge. The patient will be discharged to home today and will receive home nursing visits on a daily basis. DISCHARGE MEDICATIONS: Include: 1. Aspirin 81 mg p.o. daily. 2. Symbicort inhaler 160/4.5 two puffs twice daily. 3. Calcium 500 mg p.o. daily. 4. Vitamin D 800 units p.o. daily. 5. Cartia XT 120 mg p.o. daily. 6. Colace 200 mg p.o. daily. 7. Lasix 40 mg p.o. daily. 8. Ipratropium 0.5 mg/2.5 mL nebulizer q.4 hours as needed for shortness of breath. 9. Xopenex 2 puffs inhaled 4 times a day. 10. Synthroid 25 mcg p.o. daily. 11. Ativan 0.5 mg p.o. b.i.d. 12. Metoprolol succinate 25 mg p.o. daily. 13. Nitroglycerin 0.4 mg sublingual q.5 minutes p.r.n. for chest pain x3 doses. 14. Omeprazole 40 mg p.o. daily. 15. Roxicodone 5 mg p.o. q.4 hours as needed for pain. 16. Oxymorphone 15 mg p.o. b.i.d. 17. MiraLAX 17 g p.o. q.a.m. 18. Gas-X 125 mg p.o. t.i.d. 19. Aldactone 25 mg p.o. daily. 20. Spiriva 1 capsule inhaler daily. 21. Coumadin 3 mg p.o. daily, which we will keep on hold for the next week or so until she is seen by Dr. Thompson for followup. PROBLEM LIST: 1. Fall without head trauma or loss of consciousness. 2. Large posterior right thigh hematoma, resolving slowly, hemodynamically stable. The patient will be discharged to home today in a stable condition and we will maintain her Coumadin on hold until she is seen by Dr. Thompson for a followup to determine the appropriate timing to continue her anticoagulation therapy. The patient is aware and going to follow up as directed. NEFTALI PADGETT [id number]/[facility] #: [id number] [id number]
== END 2017-11-17 13:44 | disposition home or self-care (01) | DRG 605 ==
LOC: ED 13:52 → MEDTELE 21:07 → OBSVTOIN 11-14 09:28 → MED 11-15 04:30
PROVIDERS: ADMIT Hospitalist; ATTEND Internal Medicine
DX: S70.11XA Contusion of right thigh, initial encounter (principal); I50.30 Unspecified diastolic (congestive) heart failure; L97.219 Non-pressure chronic ulcer of right calf with unspecified severity; N18.9 Chronic kidney disease, unspecified; I13.0 Hypertensive heart and chronic kidney disease with heart failure and stage 1 through stage 4 chronic kidney disease, or unspecified chronic kidney disease; W18.30XA Fall on same level, unspecified, initial encounter; Y92.009 Unspecified place in unspecified non-institutional (private) residence as the place of occurrence of the external cause; M79.1 Myalgia; I48.91 Unspecified atrial fibrillation; J44.9 Chronic obstructive pulmonary disease, unspecified; Z99.81 Dependence on supplemental oxygen; G89.29 Other chronic pain; G62.9 Polyneuropathy, unspecified; E03.9 Hypothyroidism, unspecified; I07.1 Rheumatic tricuspid insufficiency; R79.1 Abnormal coagulation profile; I25.10 Atherosclerotic heart disease of native coronary artery without angina pectoris; Z79.01 Long term (current) use of anticoagulants; Z79.82 Long term (current) use of aspirin; Z79.891 Long term (current) use of opiate analgesic; Z79.899 Other long term (current) drug therapy; Z88.5 Allergy status to narcotic agent; Z88.0 Allergy status to penicillin; Z88.8 Allergy status to other drugs, medicaments and biological substances; Z82.49 Family history of ischemic heart disease and other diseases of the circulatory system; Z87.891 Personal history of nicotine dependence
CPT/HCPCS: 36415; 71045; 72170; 80048; 80053; 80061; 81003; 82575; 83735; 84100; 84105; 84156; 84300; 85014; 85018; 85025; 85027; 85060; 85610; 94640; 99284; A9270-GY; G8978-GP-CH; G8978-GP-CJ; G8979-GP-CH; G8979-GP-CI; G8987-GO-CI; G8987-GO-CK; G8988-GO-CI; G8989-GO-CI; J1940; J2270; J2405

== ENCOUNTER 2018-01-01 15:21 | Emergency (ER) | payer MEDICARE, BC ==
--- NOTE | 2018-01-01 16:01 | UC ---
Skin Complaint HPI - HPI Summary HPI Summary: 87 yo female presents with worsening b/l leg edema and right hand edema. Regarding her right hand; she tells me that she had carpal tunnel surgery over a year ago and ever since then has had swelling into her right hand intermittently. Over the last few weeks has noticed the swelling becoming more persistent and happening more often. No pain Regarding her b/l leg edema. This has been a chronic issue for her, but over the last 2-3 weeks has noticed this edema getting increasingly worse - to the point where she cannot pull her compression stockings over her legs. She called her PCP, but he is not in the office this week. Denies fever, chills, increased SOB, chest pain, abdominal pain, n/v. - History of Current Complaint Time Seen by Provider: 01/01/18 16:01 Stated Complaint: LEG AND ARM SWOLLEN Hx Obtained From: Patient Onset/Duration: Gradual Onset - Allergy/Home Medications Allergies/Adverse Reactions: Allergies Allergy/AdvReac Type Severity Reaction Status Date / Time fentanyl Allergy Unknown Difficulty Verified 01/01/18 15:57 Breathing sulfamethoxazole AdvReac Intermediate Nausea Verified 01/01/18 15:57 [From Bactrim] trimethoprim [From Bactrim] AdvReac Intermediate Nausea Verified 01/01/18 15:57 ciprofloxacin AdvReac Hives Verified 01/01/18 15:57 codeine AdvReac Hives Verified 01/01/18 15:57 Penicillins AdvReac Hives Verified 01/01/18 15:57 Review of Systems Constitutional: Other - Leg edema. Right hand edema Skin: Negative Respiratory: Negative Cardiovascular: Negative Gastrointestinal: Negative Neurovascular: Negative Neurological: Negative Psychological: Negative All Other Systems Reviewed And Are Negative: Yes PMH/Surg Hx/FS Hx/Imm Hx Endocrine History: Diabetes Cardiovascular History: Cardiac Disease, Hypertension, Congestive Heart Failure , Atrial Fibrillation Respiratory History: COPD, Asthma Psychological History: Anxiety, Depression Other History Of: Anticoagulant Therapy - coumadin for a fib Negative For: HIV, Hepatitis B, Hepatitis C - Surgical History Surgical History: Yes Surgery Procedure, Year, and Place: T&A A CHILD. groin abscess A CHILD. appendectomy, cholecystectomy, [facility]. hysterectomy partial, [facility]. thyroidectomy partial, [facility]. L breast and R lung biopsies, [facility]. 1995 laminectomy L4,5, [facility]. gastrectomy partial 1972 r/t hemmorhaging ulcer;. Carpal Tunnel Surgery Right Wrist by Dr. Chauhan in July 2015. [place] [facility] [place] node bx 1994, [facility]. left leg surgery- vein 2003 [facility] [place]. [place] [facility] [place] - Family History Known Family History: Positive: None, Cardiac Disease - father - CHF, brother - aneurysm Negative: Hypertension, Diabetes Family History: R & N/C - Social History Occupation: Retired Lives: Alone Alcohol Use: Occasionally Alcohol Amount: 2 drinks per week Substance Use Type: None Substance Use Comment - Amount & Last Used: oxycodone and oxymorphone Smoking Status (MU): Former Smoker Type: Cigarettes Amount Used/How Often: 2 packs per week Length of Time of Smoking/Using Tobacco: ON AND OFF 45 YRS Have You Smoked in the Last Year: No When Did the Patient Quit Smoking/Using Tobacco: 1993 - Immunization History Most Recent Influenza Vaccination: 5608-1127 season Most Recent Tetanus Shot: within past 5 years Most Recent Pneumonia Vaccination: 2016 Physical Exam - Summary Physical Exam Summary: GENERAL: NAD. WDWN. No pain distress. SKIN: +4 pitting edema to b/l LEs with brawny discoloration distally. No open sores, wounds, or ulcers appreciated. NECK: Supple. Nontender. No lymphadenopathy. CHEST: CTAB. No r/r/w. No accessory muscle use. Breathing comfortably and in no distress. CV: Distant heart sounds. Pulses intact b/l DP. Brisk cap refill. NEURO: Alert. PSYCH: Age appropriate behavior. Triage Information Reviewed: Yes Vital Signs: Vital Signs: Temp Pulse Resp BP Pulse Ox 98.1 F 78 16 110/57 95 01/01/18 15:59 01/01/18 15:59 01/01/18 15:59 01/01/18 15:59 01/01/18 15:59 Course/Dx - Course Course Of Treatment: CXR: IMPRESSION: CHEST X-RAYS ARE CONSISTENT WITH CHRONIC OBSTRUCTIVE PULMONARY DISEASE SIMILAR IN. APPEARANCE TO PRIOR CHEST X-RAYS. Pt is in no acute distress, is breathing well, and CXR is at baseline without effusion. I called Dr. Thompson's office and spoke to one of the nurses as he is out of town and scheduled the pt for an appointment on Thursday morning (today is thursday). No changes in her chronic medication at this time. I stressed to her that if she develops SOB or chest discomfort before her appt thursday - she should go to the ER - she was agreeable to this plan. I presented and discussed this case with Dr. Read and she was also agreeable to this plan. - Diagnoses Provider Diagnoses: CHF Discharge - Sign-Out/Discharge Documenting (check all that apply): Discharge/Admit/Transfer - Discharge Plan Condition: Stable Disposition: HOME Patient Education Materials: Leg Edema (ED) Referrals: Jose Thompson MD [Primary Care Provider] - 01/04/18 11:15 am Additional Instructions: If you develop a fever, shortness of breath, chest pain, new or worsening symptoms - please call your PCP or go to the ED. 1) I HAVE SCHEDULED YOU AN APPOINTMENT WITH DR. THOMPSON FOR Thursday01/04/18 AT 11: 15AM AT THE [facility] LOC[facility] ---He will see you regarding your increased leg edema. 2) If your symptoms worsen or if you develop shortness of breath - please go to the ER - Billing Disposition and Condition Condition: STABLE Disposition: Home
[2018-01-01 16:12] VITALS: BP 110/57
--- NOTE | 2018-01-01 17:35 | RAD ---
INDICATION: Leg and arm swelling COMPARISON: Similar chest x-ray dated November 13, 2017 TECHNIQUE: PA and lateral views of the chest were obtained. FINDINGS: The heart and mediastinum are normal in size and contour. There is stable calcification overlying the arch of the aorta. The lungs are hyperaerated in the AP view. There are flattened diaphragm and increased retrosternal airspace in the lateral view. Lungs are otherwise grossly clear. There is no evidence of large pleural effusion. The visualized bones are diffusely demineralized. There is no radiographic evidence of free air beneath the diaphragm IMPRESSION: CHEST X-RAYS ARE CONSISTENT WITH CHRONIC OBSTRUCTIVE PULMONARY DISEASE SIMILAR IN APPEARANCE TO PRIOR CHEST X-RAYS.
== END 2018-01-01 17:52 | disposition home or self-care (01) ==
LOC: UCEAST 15:21
DX: I50.9 Heart failure, unspecified (principal); R60.0 Localized edema; E11.9 Type 2 diabetes mellitus without complications; I11.0 Hypertensive heart disease with heart failure; I48.91 Unspecified atrial fibrillation; Z79.01 Long term (current) use of anticoagulants; J44.9 Chronic obstructive pulmonary disease, unspecified; F41.9 Anxiety disorder, unspecified; F32.9 Major depressive disorder, single episode, unspecified; Z88.1 Allergy status to other antibiotic agents; Z88.5 Allergy status to narcotic agent; Z88.0 Allergy status to penicillin; Z88.2 Allergy status to sulfonamides; Z82.49 Family history of ischemic heart disease and other diseases of the circulatory system; Z87.891 Personal history of nicotine dependence; M54.16 Radiculopathy, lumbar region; M79.605 Pain in left leg; M79.604 Pain in right leg; Z79.899 Other long term (current) drug therapy
CPT/HCPCS: 71046; 99212; G0463

== ENCOUNTER 2018-01-28 15:21 | Inpatient (IN) | payer MEDICARE, BC ==
[2018-01-28] MEDS ORDERED: NS 0.9% 1000 ML*IV.FLUID IV ONE (15:39)
--- NOTE | 2018-01-28 15:39 | ED ---
Shortness of Breath - HPI Summary HPI Summary: 87 y/o female presents to the ED c/o constant SOB starting at 09:00 this morning. Pt woke up with these sx. Not alleviated by anything. Associated sx: chills. No burning with urination. Denies ABD pain acutely. - History of Current Complaint Chief Complaint: EDRespiratoryDistress Hx Obtained From: Patient Onset/Duration: Lasting Hours, Still Present Alleviating Factors: Nothing Associated Signs & Symptoms: Chills - Allergy/Home Medications Allergies/Adverse Reactions: Allergies Allergy/AdvReac Type Severity Reaction Status Date / Time fentanyl Allergy Unknown Difficulty Verified 01/01/18 15:57 Breathing sulfamethoxazole AdvReac Intermediate Nausea Verified 01/01/18 15:57 [From Bactrim] trimethoprim [From Bactrim] AdvReac Intermediate Nausea Verified 01/01/18 15:57 ciprofloxacin AdvReac Hives Verified 01/01/18 15:57 codeine AdvReac Hives Verified 01/01/18 15:57 Penicillins AdvReac Hives Verified 01/01/18 15:57 PMH/Surg Hx/FS Hx/Imm Hx Previously Healthy: No Endocrine/Hematology History: Reports: Hx Anticoagulant Therapy - coumadin for a fib, Hx Blood Disorders - chronic thrombocytopenia, Hx Thyroid Disease - juwan, Hx Anemia - HX OF Denies: Hx Diabetes Cardiovascular History: Reports: Hx Angina, Hx Congestive Heart Failure, Hx Coronary Artery Disease, Hx Hypercholesterolemia, Hx Hypertension, Other Cardiovascular Problems/Disorders - AFIB Denies: Hx Aneurysm, Hx Auto Implanted Cardiovert Defib, Hx Cardiac Arrest, Hx Cardiomegaly, Hx Deep Vein Thrombosis, Hx Myocardial Infarction, Hx Pacemaker /ICD, Hx Valvular Heart Disease Respiratory History: Reports: Hx Asthma, Hx Chronic Obstructive Pulmonary Disease (COPD) - 2L O2 @ night, Hx Pneumonia - Hospitalized from 10/14/14 - and 01/2017, Hx Seasonal Allergies, Other Respiratory Problems/ Disorders - BILAT PNEUMONIA 10/25. PT WITH TB 1994 Denies: Hx Lung Cancer - 2L O2 at night - on 4L continuous since pneumonia January 2017, Hx Pulmonary Embolism GI History: Reports: Hx Gall Bladder Disease - cholecystectomy 1976, Hx Gastroesophageal Reflux Disease - CONTROL WITH MED, Hx Ulcer, Other GI Disorders - partial gastrectomy 1972 Denies: Hx Gastrointestinal Bleed, Hx Urosepsis History: Reports: Other Problems/Disorders - hysterectomy breast biopsy left Denies: Hx Acute Renal Failure, Hx Benign Prostatic Hyperplasia, Hx Kidney Stones, Hx Renal Disease Musculoskeletal History: Reports: Hx Arthritis - BACK, KNEES, Hx Back Problems - laminectomy, Hx Orthopedic Injury - hx r arm, r ankle, toes, Other Musculoskeletal History - back surgery 1995 Sensory History: Reports: Hx Cataracts - removed, Hx Contacts or Glasses - READING GLASSES Denies: Hx Eye Injury, Hx Eye Prosthesis, Hx Glaucoma, Hx Macular Degeneration, Hx Deafness, Hx Hearing Aid, Hx Hearing Problem, Other Sensory Impairments Opthamlomology History: Reports: Hx Cataracts - removed, Hx Contacts or Glasses - READING GLASSES Denies: Hx Eye Injury, Hx Eye Prosthesis, Hx Glaucoma, Hx Macular Degeneration, Other Sensory Impairments Neurological History: Reports: Other Neuro Impairments/Disorders - PERIPHERAL NEUROPATHY BILAT Denies: Hx Dementia, Hx Developmental Delay, Hx Migraine, Hx Seizures, Hx Transient Ischemic Attacks (TIA) Psychiatric History: Reports: Hx Anxiety - CONTROL WITH MED, Hx Depression - CONTROL WITH MED Denies: Hx Panic Disorder, Hx Schizophrenia, Hx Bipolar Disorder, Hx Suicide Attempt, Hx of Violent Episodes Against Others - Cancer History Cancer Type, Location and Year: breast lumpectomy was benign Hx Chemotherapy: No Hx Radiation Therapy: No - Surgical History Surgery Procedure, Year, and Place: T&A A CHILD. groin abscess A CHILD. [place], [place] [facility] [place] [facility]. thyroidectomy partial, [facility]. L breast and R lung biopsies, [facility]. 1995 laminectomy L4,5, [facility]. gastrectomy partial 1973 r/t hemmorhaging ulcer;. Carpal Tunnel Surgery Right Wrist by Dr. Chauhan in July 2015. [place]ACT[place] [facility] [place] lymph node bx 1994, [facility]. left leg surgery- vein 2003 [facility]. [place] [facility] [place]x Anesthesia Reactions: No - Immunization History Date of Tetanus Vaccine: 2013 Date of Influenza Vaccine: Fall 2012 Infectious Disease History: No Infectious Disease History: Reports: Hx Tuberculosis, History Other Infectious Disease - hx e-coli sepsis and pneumonia February 2017 Denies: Hx Clostridium Difficile, Hx Hepatitis, Hx Human Immunodeficiency Virus (HIV), Hx of Known/Suspected MRSA, Hx Known/Suspected VRE, Hx Known/ Suspected VRSA, Traveled Outside the [place] in Last 30 Days - Family History Known Family History: Positive: None, Cardiac Disease - father - CHF, brother - aneurysm Negative: Hypertension, Diabetes Family History: R & N/C - Social History Alcohol Use: Occasionally Alcohol Amount: 2 drinks per week Hx Substance Use: No Substance Use Type: Reports: None Substance Use Comment - Amount & Last Used: oxycodone and oxymorphone Hx Tobacco Use: Yes Smoking Status (MU): Former Smoker Type: Cigarettes Amount Used/How Often: 2 packs per week Length of Time of Smoking/Using Tobacco: ON AND OFF 45 YRS Have You Smoked in the Last Year: No Review of Systems Positive: Chills Eyes: Negative ENT: Negative Cardiovascular: Negative Positive: Shortness Of Breath Gastrointestinal: Negative Genitourinary: Negative Musculoskeletal: Negative Skin: Negative Neurological: Negative Psychological: Normal All Other Systems Reviewed And Are Negative: Yes Physical Exam - Summary Physical Exam Summary: Appearance: Well-appearing, Well-nourished Skin: Warm Eyes: Normal ENT: Normal Neck: Supple, nontender Respiratory: Clear to auscultation Cardiovascular: Regular rate, regular rhythm. Normal S1, S2. Abdomen: Soft, nontender Musculoskeletal: Normal, Strength/ROM Intact. Bilateral LE 3+ edema with erythema and warmth. No discharge. Neurological: Normal, A&Ox3 Psychiatric: Normal General: No acute distress Triage Information Reviewed: Yes Vital Signs On Initial Exam: Initial Vitals Temp Pulse Resp BP Pulse Ox 102.2 F 100 18 128/49 89 01/28/18 15:30 01/28/18 15:30 01/28/18 15:30 01/28/18 15:30 01/28/18 15:30 Vital Signs Reviewed: Yes Diagnostics - Vital Signs Vital Signs Temp Pulse Resp BP Pulse Ox 01/28/18 15:30 102.2 F 100 18 128/49 89 - Laboratory Result Diagrams: 01/28/18 15:46 01/28/18 15:46 Lab Statement: Any lab studies that have been ordered have been reviewed, and results considered in the medical decision making process. - Radiology CXR Xray Interpretation: Positive (See Comments) - CARDIOMEGALY. CHRONIC LUNG FINDINGS WITH HYPERINFLATION. SUSPECT DEVELOPING RIGHT BASAL INFILTRATE. Radiology Interpretation Completed By: Radiologist Course/Dx - Course Course Of Treatment: LAbs - WBC WNL, no WBC count elevation, UA clean, CXR revaled RLL infiltrate, with SIRS, pt will be admitted under Dr Miranda, hospitalist - Diagnoses Provider Diagnoses: RLL pneumonia, SIRS (systemic inflammatory response syndrome) - Physician Notifications Discussed Care of Patient With: Shoshana Miranda Time Discussed With Above Provider: 17:55 Instructed by Provider To: Admit As Inpatient Discharge - Sign-Out/Discharge Documenting (check all that apply): Patient Departure - Discharge Plan Condition: Stable Disposition: ADMITTED TO [facility] Referrals: Jose Thompson MD [Primary Care Provider] - - Billing Disposition and Condition Condition: STABLE Disposition: Admitted to [facility]
[2018-01-28] MEDS ORDERED: NS 0.9% 1000 ML* 1,000 ML IV SCH (15:45)
[2018-01-28 16:10] LABS: ABS Basophils 0.1 10^3/ul (0-0.2); ABS Eosinophils 0 10^3/ul (0-0.6); ABS Lymphocytes 0.4 10^3/ul (1.0-4.8); ABS Monocytes 0.5 10^3/ul (0-0.8); ABS Neutrophils 8.2 10^3/ul (1.5-7.7); ABS Nucleated RBC 0 10^3/ul; Eosinophil % 0 % (0-6); Hematocrit 32 % (35-47); Hemoglobin 10.8 g/dl (12.0-16.0); Lymphocyte % 4.6 % (25-47); Mean Corpuscular HGB Conc 33 g/dl (31-36); Mean Corpuscular Hemoglobin 29 pg (27-31); Mean Corpuscular Volume 86 fL (80-97); Mean Platelet Volume 8.4 um3 (7.4-10.4); Nucleated Red Blood Cells % 0; Platelet Count 183 10^3/ul (150-450); Red Blood Count 3.78 10^6/ul (4.00-5.40); Red Cell Distribution Width 19 % (10.5-15); White Blood Count 9.2 10^3/ul (3.5-10.8)
[2018-01-28 16:16] LABS: INR 1.62 (0.77-1.02)
--- NOTE | 2018-01-28 16:20 | RAD ---
INDICATION: Sepsis COMPARISON: Chest x-ray January 01, 2018 TECHNIQUE: An AP portable view obtained at 1602 hours is submitted. FINDINGS: Bones/Soft Tissues: There are no acute bony findings. Cardiomediastinal: The cardiac silhouette is enlarged with a mild interval increase in heart size. Lungs: The interstitium is prominent. There may be a developing infiltrate in the right lung base. There is right upper lobe scarring. There is hyperinflation. Pleura: There are no pleural effusions. Other: None IMPRESSION: CARDIOMEGALY. CHRONIC LUNG FINDINGS WITH HYPERINFLATION. SUSPECT DEVELOPING RIGHT BASAL INFILTRATE.
[2018-01-28 17:07] LABS: Urine Appearance Clear; Urine Blood Negative (Negative); Urine Color Straw; Urine Ketones Negative (Negative); Urine Protein Negative (Negative); Urine Specific Gravity 1.008 (1.010-1.030); Urine Urobilinogen Negative (Negative)
[2018-01-28] MEDS ORDERED: Cefepime 2 GM in Dextrose(*) 2 GM/50 ML BAG IV ONE (17:09)
[2018-01-28] MEDS ORDERED: Al Hydrox/Mg Hydrox/Simet LIQ* 30 ML UDC PO PRN (18:02)
[2018-01-28] MEDS ORDERED: Nitroglycerin TAB 0.4 MG* 0.4 MG TAB SL PRN (18:23)
[2018-01-28] MEDS ORDERED: LORazepam TAB(*) 0.5 MG PO PRN (18:23)
[2018-01-28] MEDS ORDERED: Levalbuterol HFA INHALER* 1 PUFF MDI INH PRN (18:23)
[2018-01-28] MEDS ORDERED: Azithromycin IV* 500 MG ADVAN VIAL/BAG IVPB ONE (18:29)
[2018-01-28] MEDS: Azithromycin IV(*) 500 MG in NS 0.9% 250 ML* 250 ML IVPB SCH (19:05)
[2018-01-28] MEDS ORDERED: Simethicone TAB* 80 MG TAB.CHEW PO PRN (19:15)
[2018-01-28] MEDS ORDERED: Albuterol/Ipratropium NEB.SOL* Albuterol 2.5 MG/Ipratropium 0.5 MG 3 ML INH PRN (19:17)
[2018-01-28] MEDS: DOXYcycline CAP(*) 100 MG PO SCH (21:23)
[2018-01-28] MEDS: Oxymorphone ER (NF) 5 MG TAB PO SCH (21:24)
[2018-01-28] MEDS: Omeprazole CAP* 20 MG PO SCH (21:24)
--- NOTE | 2018-01-28 21:33 | HP ---
CC: Dr. Thompson * HISTORY AND PHYSICAL: DATE OF ADMISSION: 01/28/18 TIME OF ADMISSION: 6:30 p.m. PRIMARY CARE PHYSICIAN: Dr. Thompson. CHIEF COMPLAINT: "I was so cold." HISTORY OF PRESENT ILLNESS: This is an 87-year-old female with history of COPD , diastolic heart failure, and atrial fibrillation, who presents with sudden onset of chills at 9 a.m. this morning. She woke up at 3 a.m. 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 She reported some shortness of breath over the past few days, but did not think much of it. She and her daughter note that she was having to use her p.r.n. home O2 more often than usual; however, she does use that occasionally for dyspnea on exertion. She has not had any cough recently. She has not had any fevers. She does not believe she has lost or gained any weight. She always sleeps on 2 pillows and this has not changed recently. She did note some dizziness this morning. The chills are now resolved. She has not had any recent falls. Her diuretic dose has not been changed. She denies any sick contacts and she denies any travel. On a good day, she reports she is able to walk 1 flight of stairs and probably 1 city block, though she does not usually do that and today, she could barely get around the house due to shortness of breath. PAST MEDICAL HISTORY: 1. Atrial fibrillation, on Coumadin. 2. COPD, on 2 L home oxygen nocturnally. 3. Diastolic and valvular heart failure. 4. [id number] tricuspid regurgitation. 5. Chronic pain syndrome. 6. Neuropathy. 7. Coronary artery disease. 8. Asthma. 9. Anxiety. HOME MEDICATIONS: 1. Symbicort 160/4.5 two puffs b.i.d. 2. Ranitidine 150 mg daily. 3. Simethicone 125 mg t.i.d. p.r.n. 4. Aspirin 81 mg daily. 5. Calcium carbonate 500 mg daily. 6. Cholecalciferol 800 units daily. 7. Cardizem 120 mg daily. 8. Docusate 100 to 200 mg daily. 9. Lasix 40 mg daily. 10. Levalbuterol 2 puffs four times a day p.r.n. shortness of breath. 11. Levothyroxine 25 mcg daily. 12. Ativan 0.5 mg b.i.d. p.r.n. anxiety. 13. Metoprolol succinate 25 mg daily. 14. Nitroglycerin 0.4 mg sublingual q.5 minutes p.r.n. chest pain. 15. Omeprazole 40 mg b.i.d. 16. Oxycodone 15 mg q.4 p.r.n. pain. 17. Opana 15 mg b.i.d. 18. Refresh Classic Eye Drops in both eyes daily. 19. Spironolactone 25 mg daily. 20. Spiriva 1 cap inhaled daily. 21. Warfarin 3 mg daily. SOCIAL HISTORY: She lives alone in [place]. She has a friend who helps her with grocery shopping and cooking. Her daughter, Masha, is her emergency contact. She is a former smoker and quit 23 years ago. She denies alcohol abuse. PHYSICAL EXAMINATION GENERAL: Alert, elderly, ill-appearing female, in no distress. She is breathing comfortably and using no accessory respiratory muscles. She is nontoxic appearing. VITAL SIGNS: Temperature 102.2, heart rate 100, respiratory rate 18, pulse ox 89 % on room air, blood pressure 128/49. HEENT: Pupils equal, round, and reactive to light. No pharyngeal exudates or erythema. NECK: No cervical or supraclavicular lymphadenopathy. She does have JVP to 14 cm and distended external jugular veins. CHEST: Lungs are clear bilaterally. No wheezes, rales, or rhonchi. HEART: Her PMI is nondisplaced. She is in a regular rhythm with a murmur at the left upper sternal border. ABDOMEN: Soft, nontender, nondistended. No guarding or rebound. No CVA tenderness. EXTREMITIES: She has erythema to the mid schmitz bilaterally with no open ulcers and no drainage. She has 1+ edema bilaterally. She and her daughter thinks this is about baseline for her. DIAGNOSTIC STUDIES/LAB DATA: Sodium 143, potassium 3.9, chloride 105, bicarb 29, BUN 40, creatinine 1.1, glucose 145, lactic acid 1.3. BNP 836. Urinalysis negative for leuk esterase, nitrite, and glucose. INR 1.6. White blood cells 9.2, hemoglobin 10.8, platelets 183, 89% neutrophils, no bands. Chest x-ray: Cardiomegaly, chronic lung findings with hyperinflation, suspect developing right basal infiltrate. ASSESSMENT AND PLAN: This is an 87-year-old female with history of chronic obstructive pulmonary disease, atrial fibrillation, and valvular heart failure presenting with sudden onset of chills this morning, found to be febrile, and have a developing right lower lobe infiltrate on chest x-ray. 1. Sepsis per systemic inflammatory response syndrome criteria with a pulmonary source. She has no sputum for collection, so I am checking legionella and strep urinary antigens. Blood cultures have been sent in the emergency department. She has received azithromycin and cefepime in the emergency department. She technically meets criteria for healthcare-associated pneumonia since she was last admitted to the hospital on 11/13/17. However, I am treating her for community- acquired pneumonia with ceftriaxone and doxycycline. It should be noted that she does have an allergy to PENICILLINS listed; however, she received cefepime in the emergency department without adverse reactions, so I am treating her with ceftriaxone. I am also using doxycycline to avoid azithromycin's interaction with warfarin. She has received volume resuscitation in the emergency department. I am discontinuing this now due to volume overload on my exam. She has received 2 L of normal saline at this time. 2. Acute on chronic valvular heart failure. She does not think her weight has changed; however, she is slightly volume overloaded on my exam. I would like to continue her home diuretic and hold further IV fluids at this time. 3. Chronic venous stasis changes. I do not believe that she has cellulitis as a source for her sepsis at this time given the bilateral nature of the erythema on her legs and her family's reports of the chronicity of this; however, her legs should be monitored and this should be considered on the differential. 4. Chronic pain syndrome and neuropathy. Continue home narcotic regimen. 5. Chronic obstructive pulmonary disease, on nocturnal home O2. Continue 2 L at night and I will add p.r.n. nebulizers. I do not think she is clearly in exacerbation at this time, but may develop one given the pulmonary infiltrate. 6. Atrial fibrillation. She is currently rate controlled on metoprolol. Her INR is subtherapeutic; however, given her critical illness and antibiotics, I am increasing her warfarin dose to 4 mg daily. 7. DVT prophylaxis. Therapeutic anticoagulation with warfarin. 8. Full code. I discussed intubation and resuscitation with Ms. Saldana and her daughter and they both agreed that she would want resuscitation and intubation regardless of her prognosis. [id number]/CPS #: [id number] MTDD
[2018-01-29] MEDS: cefTRIAXone(*) 1 GM in NS 0.9% 50 ML* 50 ML IVPB SCH (01:47)
[2018-01-29] MEDS: Levothyroxine TAB* 25 MCG TAB PO SCH (06:21)
[2018-01-29] MEDS: oxyCODONE TAB* 5 MG TAB PO PRN ×3 (06:28→19:46)
[2018-01-29 06:41] LABS: ABS Basophils 0 10^3/ul (0-0.2); ABS Eosinophils 0.1 10^3/ul (0-0.6); ABS Lymphocytes 1.4 10^3/ul (1.0-4.8); ABS Monocytes 0.4 10^3/ul (0-0.8); ABS Neutrophils 6.9 10^3/ul (1.5-7.7); ABS Nucleated RBC 0 10^3/ul; Eosinophil % 0.6 % (0-6); Hematocrit 30 % (35-47); Hemoglobin 9.7 g/dl (12.0-16.0); Mean Corpuscular HGB Conc 33 g/dl (31-36); Mean Corpuscular Hemoglobin 28 pg (27-31); Mean Corpuscular Volume 86 fL (80-97); Mean Platelet Volume 8.1 um3 (7.4-10.4); Nucleated Red Blood Cells % 0.1; Platelet Count 139 10^3/ul (150-450); Red Blood Count 3.46 10^6/ul (4.00-5.40); Red Cell Distribution Width 19 % (10.5-15); White Blood Count 8.9 10^3/ul (3.5-10.8)
[2018-01-29 06:54] LABS: INR 1.78 (0.77-1.02)
[2018-01-29] MEDS: Tiotropium CAP.INH* CAP.INH/18 MCG (USE ORDER SET !) INH SCH (08:43)
[2018-01-29] MEDS: Cholecalciferol TAB* 400 UNIT PO SCH (08:49)
[2018-01-29] MEDS: Calcium Carbonate TAB* 1250 MG (CALCIUM 500 MG) PO SCH (08:49)
[2018-01-29] MEDS: Aspirin EC TAB* 81 MG TAB.EC PO SCH (08:50)
[2018-01-29] MEDS: Diltiazem CD CAP* 120 MG PO SCH (08:51)
[2018-01-29] MEDS: Metoprolol Succinate XL TAB* 25 MG PO SCH (08:51)
[2018-01-29] MEDS: Docusate CAP* 100 MG PO SCH (08:52)
[2018-01-29] MEDS: Furosemide TAB* 20 MG PO SCH (08:53)
[2018-01-29] MEDS: Omeprazole CAP* 20 MG PO SCH ×2 (08:58→15:23)
[2018-01-29] MEDS ORDERED: Spiriva Inhaler DEVICE* 1 EACH DEVICE INH ONE (09:00)
[2018-01-29] MEDS: Spironolactone TAB* 25 MG PO SCH (09:03)
[2018-01-29] MEDS: Oxymorphone ER (NF) 5 MG TAB PO SCH ×2 (09:11→21:46)
[2018-01-29] MEDS: POLYVINYL ALCOHOL BOTH EYES SCH (09:36)
[2018-01-29] MEDS: POVIDONE BOTH EYES SCH (09:36)
[2018-01-29] MEDS: Acetaminophen TAB* 325 MG PO PRN ×2 (15:23→19:21)
--- NOTE | 2018-01-29 15:56 | PN ---
Subjective Date of Service: 01/29/18 Interval History: NO overnight events. She feels "pretty good" today. No cough, no fevers, no sputum, no chest pain, no nausea. Objective Active Medications: Acetaminophen (Tylenol Tab*) 650 mg PO Q4H PRN PRN Reason: FEVER/PAIN Last Admin: 01/29/18 15:23 Dose: 650 mg Al Hydrox/Mg Hydrox/Simethicone (Maalox Plus*) 30 ml PO Q6H PRN PRN Reason: INDIGESTION Albuterol/Ipratropium (Duoneb (Albuterol 2.5 Mg/Ipratropium 0.5 Mg)) 1 neb INH Q4H PRN PRN Reason: SOB/WHEEZING Aspirin (Aspirin Ec Tab*) 81 mg PO DAILY [facility] Last Admin: 01/29/18 08:50 Dose: 81 mg Calcium Carbonate (Calcium Carbonate Tab*) 1,250 mg PO DAILY [facility] Last Admin: 01/29/18 08:49 Dose: 1,250 mg Cholecalciferol (Vitamin D Tab*) 800 unit PO DAILY [facility] Last Admin: 01/29/18 08:49 Dose: 800 unit Diltiazem HCl (Cardizem Cd Cap*) 120 mg PO DAILY [facility] Last Admin: 01/29/18 08:51 Dose: 120 mg Docusate Sodium (Colace Cap*) 200 mg PO DAILY [facility] Last Admin: 01/29/18 08:52 Dose: 200 mg Doxycycline Hyclate (Vibramycin Cap(*)) 100 mg PO BEDTIME [facility] Last Admin: 01/28/18 21:23 Dose: 100 mg Furosemide (Lasix Tab*) 40 mg PO DAILY [facility] Last Admin: 01/29/18 08:53 Dose: 40 mg Azithromycin 500 mg/ Sodium (Chloride) 250 mls @ 250 mls/hr IVPB Q24H [facility] Last Admin: 01/28/18 19:05 Dose: 250 mls/hr Ceftriaxone Sodium 1 gm/ (Sodium Chloride) 50 mls @ 200 mls/hr IVPB Q24H [facility] Last Admin: 01/29/18 01:47 Dose: 200 mls/hr Levalbuterol HCl (Xopenex Hfa Inhaler*) 2 puff INH QID PRN PRN Reason: SOB/WHEEZING Levothyroxine Sodium (Synthroid Tab*) 25 mcg PO DAILY@0600 [facility] Last Admin: 01/29/18 06:21 Dose: 25 mcg Lorazepam (Ativan Tab(*)) 0.5 mg PO BID PRN PRN Reason: ANXIETY Metoprolol Succinate (Toprol Xl Tab*) 25 mg PO DAILY [facility] Last Admin: 01/29/18 08:51 Dose: 25 mg Nitroglycerin (Nitroglycerin Tab 0.4 Mg*) 0.4 mg SL Q5M PRN PRN Reason: PAIN - CHEST Non-Formulary Medication (Polyvinyl Alcohol/Povidone/Pf [Refresh Classic Eye Drops]) 1 drop BOTH EYES DAILY [facility] Last Admin: 01/29/18 09:36 Dose: Not Given Omeprazole (Prilosec Cap*) 40 mg PO BID AC [facility] Last Admin: 01/29/18 15:23 Dose: 40 mg Oxycodone HCl (Roxycodone Tab*) 15 mg PO Q4H PRN PRN Reason: PAIN Last Admin: 01/29/18 14:30 Dose: 15 mg Oxymorphone HCl (Opana Er (Nf)) 15 mg PO BID [facility] Last Admin: 01/29/18 09:11 Dose: 15 mg Simethicone (Mylicon Tab*) 80 mg PO Q6H PRN PRN Reason: INDIGESTION Spironolactone (Aldactone Tab*) 25 mg PO DAILY [facility] Last Admin: 01/29/18 09:03 Dose: 25 mg Tiotropium [place] (Spiriva Cap.Inh*) 1 cap INH DAILY [facility] Last Admin: 01/29/18 08:43 Dose: 1 cap Warfarin Sodium (Coumadin Tab(*)) 4 mg PO DAILY@1700 [facility]; Protocol Vital Signs - 8 hr 01/29/18 01/29/18 01/29/18 08:00 08:45 08:54 Temperature Pulse Rate 98 Respiratory 18 16 16 Rate Blood Pressure (mmHg) O2 Sat by Pulse 96 Oximetry 01/29/18 01/29/18 01/29/18 09:11 11:15 11:34 Temperature 97.9 F Pulse Rate 74 Respiratory 16 16 16 Rate Blood Pressure 102/45 (mmHg) O2 Sat by Pulse 98 Oximetry 01/29/18 01/29/18 01/29/18 11:51 14:30 15:14 Temperature 98.0 F Pulse Rate 78 Respiratory 16 18 16 Rate Blood Pressure 100/44 (mmHg) O2 Sat by Pulse 98 Oximetry Oxygen Devices in Use Now: Nasal Cannula Appearance: alert, nontoxic, well appearing Eyes: No Scleral Icterus Ears/Nose/Mouth/Throat: NL Teeth, Lips, Gums Neck: NL Appearance and Movements; NL JVP Respiratory: Symmetrical Chest Expansion and Respiratory Effort, Clear to Auscultation Cardiovascular: NL Sounds; No Murmurs; No JVD, RRR Abdominal: NL Sounds; No Tenderness; No Distention Lymphatic: No Cervical Adenopathy Extremities: - - b/l edema with erythema Skin: No Rash or Ulcers Neurological: Alert and Oriented x 3 Result Diagrams: 01/29/18 06:24 01/29/18 06:24 Microbiology and Other Data: Microbiology 01/28/18 23:25 Legionella Urinary Antigen - Final Urine Negative Legionella Antigen 01/28/18 23:25 Streptococcus pneumoniae Ag Screen - Final Urine Negative S. pneumo Antigen Assess/Plan/Problems-Billing Assessment: 87 yo female with history of copd, diastolic heart failure, and atrial fibrillation admitted with sudden on set of chills and found to have a RLL pneumonia - Patient Problems (1) Pneumonia Current Visit: No Status: Chronic Onset Date: 10/14/14 Code(s): J18.9 - PNEUMONIA, UNSPECIFIED ORGANISM SNOMED Code(s): 376600908 Comment: CxR showed RLL consolidation. Legionella and pneumococcal Ag are pending Blood cultures show no growth so far and she has no sputum Ceftriaxone day 2 (2) Subtherapeutic international normalized ratio (INR) Current Visit: No Status: Acute Code(s): R79.1 - ABNORMAL COAGULATION PROFILE SNOMED Code(s): 835440766 Comment: increased dose to 4mg daily from 3mg daily (3) Afib Current Visit: No Status: Chronic Code(s): I48.91 - UNSPECIFIED ATRIAL FIBRILLATION SNOMED Code(s): 17426456 Comment: Rate controlled (4) COPD (chronic obstructive pulmonary disease) Current Visit: No Status: Chronic Code(s): J44.9 - CHRONIC OBSTRUCTIVE PULMONARY DISEASE, UNSPECIFIED SNOMED Code(s): 61479331 Comment: No acute exacerbation Cont home inhaled medications (5) Chronic diastolic (congestive) heart failure Current Visit: No Status: Chronic Code(s): I50.32 - CHRONIC DIASTOLIC ( CONGESTIVE) HEART FAILURE SNOMED Code(s): 224500467 (6) Full code status Current Visit: No Status: Acute Code(s): Z78.9 - OTHER SPECIFIED HEALTH STATUS SNOMED Code(s): 128679245 Comment: I verified this with her and her daughter
[2018-01-29] MEDS ORDERED: Warfarin TAB(*) 4 MG PO SCH (17:00)
[2018-01-29] MEDS: Azithromycin IV(*) 500 MG in NS 0.9% 250 ML* 250 ML IVPB SCH (19:22)
[2018-01-29] MEDS: DOXYcycline CAP(*) 100 MG PO SCH (21:45)
[2018-01-30] MEDS: cefTRIAXone(*) 1 GM in NS 0.9% 50 ML* 50 ML IVPB SCH (00:36)
[2018-01-30] MEDS: oxyCODONE TAB* 5 MG TAB PO PRN ×3 (02:18→14:29)
[2018-01-30] MEDS: Tiotropium CAP.INH* CAP.INH/18 MCG (USE ORDER SET !) INH SCH (07:24)
[2018-01-30] MEDS: Furosemide TAB* 20 MG PO SCH (08:28)
[2018-01-30] MEDS: Diltiazem CD CAP* 120 MG PO SCH (08:28)
[2018-01-30] MEDS: Metoprolol Succinate XL TAB* 25 MG PO SCH (08:28)
[2018-01-30] MEDS: Omeprazole CAP* 20 MG PO SCH (08:28)
[2018-01-30] MEDS: Cholecalciferol TAB* 400 UNIT PO SCH (08:28)
[2018-01-30] MEDS: Docusate CAP* 100 MG PO SCH (08:28)
[2018-01-30] MEDS: Oxymorphone ER (NF) 5 MG TAB PO SCH (08:28)
[2018-01-30] MEDS: Spironolactone TAB* 25 MG PO SCH (08:29)
[2018-01-30] MEDS: Levothyroxine TAB* 25 MCG TAB PO SCH (08:29)
[2018-01-30] MEDS: Calcium Carbonate TAB* 1250 MG (CALCIUM 500 MG) PO SCH (08:29)
[2018-01-30] MEDS: Aspirin EC TAB* 81 MG TAB.EC PO SCH (08:29)
[2018-01-30] MEDS: POVIDONE BOTH EYES SCH (08:50)
[2018-01-30] MEDS: POLYVINYL ALCOHOL BOTH EYES SCH (08:50)
[2018-01-30 12:49] VITALS: BP 101/47
--- NOTE | 2018-01-31 01:53 | DS ---
CC: Dr. Thompson * DISCHARGE SUMMARY: DATE OF ADMISSION: 01/28/18 DATE OF DISCHARGE: 01/30/18 PRIMARY CARE DOCTOR: Dr. Thompson. PRINCIPAL DISCHARGE DIAGNOSES: 1. Community-acquired pneumonia. 2. Sepsis. SECONDARY DISCHARGE DIAGNOSES: 1. Vxeni-sx-urbwiqr diastolic heart failure. 2. Chronic pain syndrome and neuropathy. 3. Chronic hypoxic respiratory failure. 4. Atrial fibrillation. 5. Subtherapeutic INR. 6. Chronic venous insufficiency. 7. History of coronary artery disease. PHYSICAL EXAMINATION: At discharge, temperature 98.0, respiratory rate 14, pulse ox 97% on 2 L, blood pressure 101/47. General: Alert, well-appearing female in no distress. She is breathing comfortably and is able to speak in full sentences. She is using no accessory respiratory muscles. HEENT: Pupils equal, round, and reactive to light. No nystagmus. Oral mucosa is moist. Pharynx is clear with no exudates or erythema. Neck: No JVP. No cervical or supraclavicular lymphadenopathy. Chest: Irregular rhythm. No murmur. PMI nondisplaced. Lungs are clear throughout. No wheezes or rhonchi appreciated. Abdomen: Soft, nontender, nondistended. No guarding or rebound. Extremities: No edema. No rashes, no ulcers. PERTINENT DATA: Chest x-ray on 01/28/18, cardiomegaly, chronic lung findings with hyperinflation, suspect developing right basal infiltrate. ASSESSMENT AND PLAN: 1. This is an 87-year-old female with history of chronic hypoxic respiratory failure and valvular heart disease, who presented to the emergency department with chills that began the morning of admission. She reports that she could not get warm and was concerned she was getting sick, so she called the emergency department. She also reported having to wear her oxygen more frequently than usual. In the emergency department, she was found to be febrile to 102.2 at the time of admission and a chest x-ray showed a developing right basilar infiltrate. She had no sputum that was available for culture, so she was started on community- acquired pneumonia treatment with cefepime and azithromycin due to her allergies. Her blood cultures remain negative. Her Strep pneumo urine antigen and Legionella antigen were negative and blood cultures remain negative. She defervesced quickly and by the second day of admission, she was back to her baseline functional capacity and was feeling better. She is being discharged on 3 more days of doxycycline to complete a 5- day course and is instructed to return to the emergency department should her fever return or if she develops a cough, chest pain, or shortness of breath. 2. Atrial fibrillation. Her heart rate was well controlled while she was here on her home dose of Cardizem and metoprolol. 3. Chronic valvular heart failure secondary to tozizkff-iy-hddwgd tricuspid regurgitation. She did not receive aggressive IV fluid resuscitation on this admission; in fact, I continued her furosemide because I thought she was slightly volume overloaded at the time of admission. Her weight on this admission was 65 kg and she was euvolemic at the time of discharge. 4. Subtherapeutic INR. Her most recent INR is 1.78; however, given her antibiotic, I did not increase her warfarin. She will follow up with Dr. Thompson , who monitors her INR. 5. Chronic obstructive pulmonary disease, on nocturnal home oxygen. She did not have any bronchospasm or evidence of chronic obstructive pulmonary disease exacerbation, so she was not treated with steroids and she was continued on her home Xopenex inhaler. [id number]/[facility] #: [id number] [id number]
== END 2018-01-30 15:30 | disposition home health service (06) | DRG 871 ==
LOC: ED 15:21 → MEDTELE 18:02 → MED 01-30 02:15
PROVIDERS: ADMIT Internal Medicine; ATTEND Internal Medicine
DX: A41.9 Sepsis, unspecified organism (principal); J18.9 Pneumonia, unspecified organism; I50.33 Acute on chronic diastolic (congestive) heart failure; J96.11 Chronic respiratory failure with hypoxia; J44.0 Chronic obstructive pulmonary disease with (acute) lower respiratory infection; G89.4 Chronic pain syndrome; G62.9 Polyneuropathy, unspecified; I48.91 Unspecified atrial fibrillation; R79.1 Abnormal coagulation profile; I87.2 Venous insufficiency (chronic) (peripheral); I25.10 Atherosclerotic heart disease of native coronary artery without angina pectoris; I07.1 Rheumatic tricuspid insufficiency; F41.9 Anxiety disorder, unspecified; D69.6 Thrombocytopenia, unspecified; E78.00 Pure hypercholesterolemia, unspecified; I11.0 Hypertensive heart disease with heart failure; J30.2 Other seasonal allergic rhinitis; K21.9 Gastro-esophageal reflux disease without esophagitis; M17.0 Bilateral primary osteoarthritis of knee; M47.9 Spondylosis, unspecified; F32.9 Major depressive disorder, single episode, unspecified; Z86.11 Personal history of tuberculosis; Z99.81 Dependence on supplemental oxygen; Z87.891 Personal history of nicotine dependence; Z88.0 Allergy status to penicillin; Z88.5 Allergy status to narcotic agent; Z88.2 Allergy status to sulfonamides; Z88.1 Allergy status to other antibiotic agents; Z90.49 Acquired absence of other specified parts of digestive tract; Z87.01 Personal history of pneumonia (recurrent); Z90.710 Acquired absence of both cervix and uterus; Z98.42 Cataract extraction status, left eye; Z98.41 Cataract extraction status, right eye; Z82.49 Family history of ischemic heart disease and other diseases of the circulatory system; Z72.89 Other problems related to lifestyle
CPT/HCPCS: 36415; 71045; 80048; 80053; 81003; 83605; 83880; 84484; 85025; 85610; 85730; 87040; 87899; 93005; 94640; 99284; A9270-GY; J0456; J0692; J0696

== ENCOUNTER 2018-03-10 12:37 | Emergency (ER) | payer MEDICARE, BC ==
--- OUTSIDE RECORDS SUMMARY | 2018-03-10 12:43 | XMS REPORT ---
:1930 External Reference #:[id number] [facility] Address [address] [place] [address] Phone [phone] Care Team Providers Name Role Phone Jose Thompson M.D. Primary Care Physician Unavailable Payers Type Date Identification Numbers Payment Provider Subscriber Medicare Primary Policy Number: [id number] Medicare - NGS Kimberly Saldana PayID: [id number] Policy Number: [id number] [facility] Kimberly Saldana PayID: [id number] [place] [address] Problems Date Description Provider Status Onset: Asthma Active Onset: Gastroesophageal reflux disease Active Onset: Hypothyroidism Active Onset: Atrial fibrillation Active Onset: Essential hypertension Active Onset: Osteoporosis Active Onset: H/O: depression Active Onset: Neuropathy Active Onset: 01/25/2016 Chalazion Deanne Alvse O.D. Onset: 01/25/2016 Vitreous degeneration Deanne Alves OTavares Onset: 01/25/2016 Pseudophakia Deanne Alves OTavares Onset: 03/11/2016 Tear film insufficiency Erika Smiley O.D. Active Onset: 03/11/2016 Internal hordeolum Erika Smiley O.D. Active Onset: 07/21/2016 Bilateral age-related nonexudative Carlos Fernandez M.D. Active macular degeneration Onset: 01/27/2018 Angular blepharoconjunctivitis Deanne Alves O.D. 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 ETOH Use Denies alcohol use Recreational Drug Use Denies Drug Use Smoking Patient is a former smoker quit ~1992 Daily Caffeine Does Not Consume Caffeine Allergies, Adverse Reactions, Alerts Date Description Reaction Status Severity Comments 01/23/2016 Penicillin active 01/23/2016 Cipro active 07/24/2017 Duragesic active 07/24/2017 Bactrim active Medications Medication Date Status Form Strength Qnty SIG Indications Ordering Provider Shelly 05/08/ Active Solution 0.1% 5units 1 drop H04.123 Merlyn Montano 2015 daily in rimma Gamboa O.Yaritza Cartia XT / Active Caps ER 120mg Unknown 0000 24HR Furosemide / Active Tablets 20mg Unknown 0000 Levothyroxine / Active Tablets 25mcg Everettlow, Sodium 0000 Jose Adorno M.D. Lorazepam / Active Tablets 0.5mg Take One Unknown 0000 Tablet By Mouth Twice A Day as Needed For Anxiety; Maximum Da Lyrica / Active Capsules 25mg Unknown 0000 Metoprolol / Active Tablets ER 25mg Take One Unknown Succinate ER 0000 24HR Tablet By Mouth Every Day Nitrostat / Active Tablets 0.4mg Darlow, 0000 Elise Adorno M.D. Omeprazole / Active Capsules 20mg Darlow, 0000 DR Jose Adorno M.D. Oxycodone HCL / Active Tablets 15mg Take One Unknown 0000 Tablet By Mouth Every 4 Hours as Needed For Pain; Maximum Alee Oxymorphone HCL / Active Tablets ER 15mg Take One Unknown ER 0000 12HR Tablet By Mouth Every 12 Hours; Maximum Daily Dose=2 Spiriva / Active Capsules 18mcg Donna Handihaler 0000 Jose Adorno M.D. Spironolactone / Active Tablets 25mg Maghaydah 0000 Qutaybeh Dino Warfarin Sodium / Active Tablets 3mg Take One Unknown 0000 Tablet By Mouth Every Day Or as Directed Xopenex HFA / Active Aerosol 45mcg/Act Everettlow 0000 Jose Adorno M.D. Aspirin Ec / Active Tablets DR 81mg every day Unknown 0000 Calcium 00/00/ Active Tablets 500mg every day Unknown 0000 Linzess / Active Capsules 290mcg Unknown 0000 Spiriva Respimat / Active Aerosol 1.25mcg/Ac Unknown 0000 t Symbicort / Active Aerosol 80-4.5mcg/ Unknown 0000 Act Stool Softener / Active Capsules 100mg Unknown 0000 Gas-X / Active Chewtabs 80mg Unknown 0000 Refresh Tears / Active [facility] 0.5[facility] 3[facility] as [place], needed O.D. Maxitrol 02/05/ Hx Ointment 3.5-58653- 3.500g apply at Merlyn Dusty 2016 - 0.1 m bedtime Stockmaricruz, 05/07/ O.D. 2016 Systane Ultra 02/02/ Hx Solution 0.4-0.3% 1 drop Merlyn Dusty 2015 - both eyes Stockmaricruz, 02/09/ every day O.D. 2017 Bacitracin 01/24/ Hx Ointment 500Unit/GM 3.500g Apply To H00.11 Merlyn Montano (Ophthalmic) 2016 - m ALL Lids Cooper, 05/07/ AT O.D. 2016 Bedtime For 3 Weeks Risedronate / Hx Tablets 35mg Unknown Sodium 0000 - 2017 Vitamin D3 00// Hx Capsules [id number] every day Unknown 0000 - 2017 Advair HFA // Hx Aerosol 115-21mcg/ every day Unknown 0000 - Act 2017 Sulfamethoxazole // Hx Tablets 800-160mg 1 tab Unknown /Trimethoprim DS 0000 - twice a 2018 Magnesium 00/00/ Hx Tablets 250mg Unknown 0000 - 2017 Results Description No Information Procedures Date CPT Code Description Status 01/27/2018 49402 Est Patient Intermediate Exam Completed 07/24/2017 39357 Scanning Computerized Opthalmic Diagnostic Posterior Completed Seg Retina 07/24/2017 13631 Determination Of Refractive State Completed 07/24/2017 32012 Est Patient Comprehensive Exam Completed 07/21/2016 51694 Scanning Computerized Opthalmic Diagnostic Posterior Completed Seg Retina 07/21/2016 15714 Determination Of Refractive State Completed 07/21/2016 15377 Est Patient Comprehensive Exam Completed 05/08/2016 73735 Est Patient Intermediate Exam Completed 02/04/2016 81535 Est Patient Intermediate Exam Completed 01/25/2016 20520 Est Patient Comprehensive Exam Completed 04/06/2014 64391 Determination Of Refractive State Completed 04/06/2014 27874 Est Patient Comprehensive Exam Completed 02/25/2013 23771 Est Patient Intermediate Exam Completed 06/18/2012 87055 Est Patient Comprehensive Exam Completed 06/18/2012 84095 Determination Of Refractive State Completed 06/10/2010 28435 Determination Of Refractive State Completed 06/10/2010 71312 Est Patient Comprehensive Exam Completed 04/24/2010 521 [place] Tears Plus Completed 03/21/2010 42224 Est Patient Intermediate Exam Completed 01/19/2009 63378 Est Patient Comprehensive Exam Completed 01/19/2009 510 Eye Scrubs 30 Count Completed 02/23/2008 30344 Remove Secondary Cataract, Laser (Yag) Completed 01/24/2008 53731 Est Patient Comprehensive Exam Completed 12/16/2006 58855 Determination Of Refractive State Completed 12/16/2006 66691 Est Patient Comprehensive Exam Completed 12/16/2006 500 Systane Eye Drops 15 ML Completed 10/16/2004 69384 Determination Of Refractive State Completed 10/16/2004 56162 Est Patient Comprehensive Exam Completed 10/07/2004 95130 Rescheduled Appointment Completed Encounters Type Date Location Provider CPT E/M Dx Office Visit 01/06/2017 Carlos Fernandez MD, Erika Smiley O.D. 60623 H00.021 3:30p pc H00.024 H04.123 Office Visit 03/11/2016 3:30p Carlos Fernandez MD, Erika Smiley O.D. 52183 H00.11 pc H04.123 H00.021 Office Visit 02/06/2016 10:20a Carlos Fernandez MD, Merlyn [place], 17602 H00.14 pc O.DAlice H00.11 Z96.1 Office Visit 03/21/2013 11:30a Carlos Fernandez MD, Merlyn [place], 88057 372.14 pc O.DAlice Office Visit 05/22/2010 11:00a Carlos Fernandez MD, Elizabeth Saldana O.D. 17765 375.15 pc Office Visit 04/24/2010 8:15a Carlos Fernandez MD, Elizabeth Saldana O.D. 80267 375.15 pc Office Visit 09/06/2008 12:15p Carlos Fernandez MD, Elizabeth Saldana O.D. 32550 375.15 pc Plan of Care 02/10/2018 - Merlyn Gamboa O.D.H04.123 Dry eye syndrome of bilateral lacrimal glandsComments:Smoking can increase the risk of developing or worsening any eye related disease, as well as affect your overall health. If you are a smoker, we strongly recommend that you quit.If you are not a smoker, we strongly recommend that you do not start. Use artificial tears 3-4 x day or more as needed Use a gel drop at bedtime both eyesContinue Patanol drops 2 x day both eyes Use a hot compress for 5-10 minutes with gentle lid scrubbing after, 1 x day continue all of this treatment for 2-3 weeks, thencan gradually cut back on the drops during the day if the eyes are feeling better.H10.523 Angular blepharoconjunctivitis, [id number] Nexdtve age-related mclr degn , bilateral, early dry stageFollow up:07/2018 cee/amd
[2018-03-10 12:54] VITALS: BP 132/72
--- NOTE | 2018-03-10 13:14 | UC ---
Complaint Female HPI - HPI Summary HPI Summary: An 87 y/o F presents to E with c/o vaginal itching onset one week ago. Associated sx: chills. Denies dysuria, abd pain, flank pain, fever, odorous urine, abnormal vaginal discharge. Pt denies hx of recurrent UTI. PCP is Dr. Thompson. SHx: cholecystectomy, appy. Pt takes Warfarin for afib. - History Of Current Complaint Chief Complaint: UCGU Stated Complaint: PERSONAL Time Seen by Provider: 03/10/18 13:05 Hx Obtained From: Patient Hx Last Menstrual Period: na Onset/Duration: Gradual Onset, Lasting Weeks - one week, Still Present Timing: Constant, Lasting Weeks - one week Severity Initially: Mild Severity Currently: Mild Pain Intensity: 0 Pain Scale Used: 0-10 Numeric Associated Signs And Symptoms: Negative: Fever, Back Pain, Vaginal Bleeding/ Discharge, Vaginal Discharge - Allergies/Home Medications Allergies/Adverse Reactions: Allergies Allergy/AdvReac Type Severity Reaction Status Date / Time fentanyl Allergy Unknown Difficulty Verified 03/10/18 12:55 Breathing sulfamethoxazole AdvReac Intermediate Nausea Verified 03/10/18 12:55 [From Bactrim] trimethoprim [From Bactrim] AdvReac Intermediate Nausea Verified 03/10/18 12:55 ciprofloxacin AdvReac Hives Verified 03/10/18 12:55 codeine AdvReac Hives Verified 03/10/18 12:55 Penicillins AdvReac Hives Verified 03/10/18 12:55 Home Medications: Home Medications Albuterol/Ipratropium NEB.LOKESH* [Duoneb (Albuterol 2.5 MG/Ipratropium 0.5 MG)] 1 neb INH Q4H PRN MDD 1 03/10/18 [History Confirmed 03/10/18] Budesonide/Formote 160/4.5(NF) [Symbicort 160/4.5 (NF)] 2 puff INH BID 03/10/18 [History Confirmed 03/10/18] Cyclobenzaprine HCl 5 mg PO SEE INSTRUCTIONS 03/10/18 [History Confirmed ] Fexofenadine HCl 180 mg PO DAILY WITH MEAL 03/10/18 [History Confirmed 03/10/18] Gabapentin [Neurontin] 100 mg PO DAILY WITH MEAL 03/10/18 [History Confirmed ] Levalbuterol HFA INHALER* [Xopenex Hfa Inhaler*] 2 puff INH Q6H PRN 03/10/18 [ History Confirmed 03/10/18] Lidocaine [Lidoderm] 1 each TP DAILY WITH MEAL 03/10/18 [History Confirmed 03/10] Pregabalin [Lyrica] 50 mg PO DAILY WITH MEAL 03/10/18 [History Confirmed ] Tiotropium CAP.INH* [Spiriva CAP.INH*] 1 cap.inh INH DAILY 03/10/18 [History Confirmed 03/10/18] Warfarin TAB(*) [Coumadin TAB(*)] 3 mg PO 1700 03/10/18 [History Confirmed 03/10] dilTIAZem HCl [Cartia Xt] 180 mg PO DAILY WITH MEAL 03/10/18 [History Confirmed 03/10/18] PMH/Surg Hx/FS Hx/Imm Hx Previously Healthy: No Endocrine History: Thyroid Disease Cardiovascular History: Hypertension, Congestive Heart Failure, Atrial Fibrillation Respiratory History: COPD, Asthma, Pneumonia GI/ History: Gastroesophageal Reflux, Ulcer Other History Of: Anticoagulant Therapy - coumadin for a fib Negative For: HIV, Hepatitis B, Hepatitis C - Surgical History Surgical History: Yes Surgery Procedure, Year, and Place: T&A A CHILD. groin abscess A CHILD. appendectomy, cholecystectomy, [facility]. hysterectomy partial, [facility]. thyroidectomy partial, [facility]. L breast and R lung biopsies, JONATH[facility]. 1995 laminectomy L4,5, JONATH[facility]. gastrectomy partial 1972 r/t hemmorhaging ulcer;. Carpal Tunnel Surgery Right Wrist by Dr. Chauhan in July 2015. BILAT CATARACTS, [facility]. right lymph node bx 1994, [facility]. left leg surgery- vein [facility]. Left Breast lumpectomy 1982, [facility] - Family History Known Family History: Positive: Cardiac Disease - father - CHF, brother - aneurysm Negative: Hypertension, Diabetes - Social History Occupation: Retired Lives: Alone Alcohol Use: Rare Alcohol Amount: 2 drinks per week Substance Use Type: None Substance Use Comment - Amount & Last Used: oxycodone and oxymorphone Smoking Status (MU): Former Smoker Type: Cigarettes Amount Used/How Often: 2 packs per week Length of Time of Smoking/Using Tobacco: ON AND OFF 45 YRS Have You Smoked in the Last Year: No When Did the Patient Quit Smoking/Using Tobacco: 20 years ago - Immunization History Most Recent Influenza Vaccination: 8542-2984 season Most Recent Tetanus Shot: within past 5 years Most Recent Pneumonia Vaccination: 2017 Review of Systems Constitutional: Chills, Other - neg: fever Gastrointestinal: Other - neg: abd pain, flank pain Genitourinary: Vaginal/Penile Itching, Other - neg: dysuria, odorous urine, abnormal vaginal discharge All Other Systems Reviewed And Are Negative: Yes Physical Exam - Summary Physical Exam Summary: General: well-appearing, no pain distress Skin: warm, color reflects adequate perfusion, dry Head: normal Eyes: EOMI, KRYS ENT: normal Neck: supple, nontender Respiratory: CTA, breath sounds present Cardiovascular: RRR Abdomen: soft, nontender Bowel: present Musculoskeletal: normal, strength/ROM intact Neurological: sensory/motor intact, A&O x3 Psychological: affect/mood appropriate Triage Information Reviewed: Yes Vital Signs: Initial Vital Signs Temp 97.9 F 03/10/18 12:48 Pulse 93 03/10/18 12:48 Resp 20 03/10/18 12:48 BP 132/72 03/10/18 12:48 Pulse Ox 93 03/10/18 12:48 Vital Signs Reviewed: Yes Re-Evaluation - Re-Evaluation 1 Re-Evaluation Time: 13:25 Change: Unchanged Comment: Discussing UA results with pt. Pt voiced understanding. Complaint Female Dx - Course Course Of Treatment: BP noted. Medications reviewed. Allergies noted. PATIENT DENIES ANY VAGINAL DISCHARGE. SHE REPORTS HAVING A VAGINAL CREAM FROM HER PRIOR PHYSICIAN THAT HELPED. WE DISCUSSED A PELVIC EXAM VERSES EMPIRIC TREATMENT FOR POSSIBLE YEAST/BV AND F/U WITH PMD. PATIENT PREFERS NO PELVIC AT THIS TIME. F/U PMD. RECHECK SOONER IF WORSE. - Differential Dx/Diagnosis Provider Diagnoses: VAGINITIS Discharge - Sign-Out/Discharge Documenting (check all that apply): Patient Departure - DC All imaging exams completed and their final reports reviewed: No Studies - Discharge Plan Condition: Stable Disposition: HOME Prescriptions: metroNIDAZOLE VAGINAL 0.75%* 1 applic VAGINAL BEDTIME #5 tube Miconazole Nitrate [Monistat 7 Combination Pa] 1 applic VA DAILY 7 Days #1 kit Patient Education Materials: Vaginitis (ED) Referrals: Jose Thompson MD [Primary Care Provider] - Additional Instructions: FOLLOW UP WITH DR THOMPSON. CALL TODAY TO ARRANGE FOLLOW UP. GET RECHECKED FOR ANY WORSENING OF YOUR CONDITION; PAIN, FEVER, YOU FEEL ILL OR QUESTIONS OR CONCERNS. - Billing Disposition and Condition Condition: STABLE Disposition: Home - Attestation Statements Document Initiated by Vinceibe: Yes Documenting Scribe: Magdy Sutton Provider For Whom Scribe is Documenting (Include Credential): Bridger Urbano MD Scribe Attestation: I, Magdy Sutton, scribed for Bridger Urbano MD on 03/10/18 at 1418. Scribe Documentation Reviewed: Yes Provider Attestation: The documentation as recorded by the [email or web address] accurately reflects the service I personally performed and the decisions made by me, Bridger Urbano MD Lab Results - Lab Results Lab Results: 03/10/18 13:18 POC Urine Color Yellow POC Urine Clarity Clear POC Urine pH 7.0 POC Ur Specif [place] 1.015 POC Urine Protein Negative POC Ur Glucose (UA) Negative POC Urine Ketones Negative POC Urine Blood Negative POC Urine Nitrite Negative POC Urine Bilirubin Negative POC Urine Urobilinogen 0.2 POC U Leukocyte Esteras Negative
== END 2018-03-10 13:42 | disposition home or self-care (01) ==
LOC: UCEAST 12:37
DX: N76.0 Acute vaginitis (principal); J44.9 Chronic obstructive pulmonary disease, unspecified; I11.0 Hypertensive heart disease with heart failure; Z88.2 Allergy status to sulfonamides; I50.9 Heart failure, unspecified; Z88.1 Allergy status to other antibiotic agents; Z88.5 Allergy status to narcotic agent; Z88.8 Allergy status to other drugs, medicaments and biological substances; Z88.0 Allergy status to penicillin; Z79.01 Long term (current) use of anticoagulants; Z87.891 Personal history of nicotine dependence
CPT/HCPCS: 81003; 99212; G0463

== ENCOUNTER 2018-04-05 15:59 | Emergency (ER) | payer MEDICARE, BC ==
--- OUTSIDE RECORDS SUMMARY | 2018-04-05 16:05 | XMS REPORT ---
:1930 External Reference #:[id number] Author Organization [facility] Address [address] [place] [address] Phone [phone] Care Team Providers Name Role Phone Jose Thompson M.D. Primary Care Physician Unavailable Payers Type Date Identification Numbers Payment Provider Subscriber Medicare Primary Policy Number: [id number] Medicare [place] Theresa L[place] PayID: [id number] [address] [address] [place] [address] Medigap Part B Policy Number: [id number] [facility] PayID: [id number] [address] [address] [place] [address] Problems Date Description Provider Status Onset: 08/04/2012 Osteoporosis Benito Reyez M.D. Active Family History Date Family Member(s) Problem(s) Comments Father due to Congestive Heart Failure () Mother due to CT () First Son A&W Second Son A&W First Daughter due to Cancer, Kidney () Second Daughter A&W Order Patient is the oldest of eight children First Brother CT Second Brother due to CT () Third Brother due to Aneurysm () Second Sister due to Stomach Cancer () Third Sister Hyperlipidemia Fourth Sister due to Ulcer () Fifth Sister Hyperlipidemia Social History Type Date Description Comments Education Highest level of education completed is 12th grade Marital Status Patient is Living Situation Patient lives alone Diet Diet is healthy and well balanced Occupation Retired Cigarette Use Former cigarette smoker Alcohol Does not currently consume alcohol Smoking Patient is a former smoker Drug Use Denies drug use Daily Caffeine Does not consume caffeine Exercise Type/Frequency Current Exercises regularly Seat Belt/Car Seat Always uses a seat belt Currently Active The patient is currently not sexually active STD's No STD history Allergies, Adverse Reactions, Alerts Date Description Reaction Status Severity Comments 08/28/2005 Cipro active 08/28/2005 Penicillin active 01/14/2007 fentanyl active 09/15/2013 Bactrim active Medications Medication Date Status Form Strength Qnty SIG Indications Ordering Provider Actonel 11/07/ Active Tablets 35mg 12tabs take 1 Dvorah 2009 tablet by Dereje, mouth M.D. every week Lyrica / Active [...] Hx Ointment 0.5% 15GRT apply bid Josue E. Acetonide 2008 - Wero, 07/13/ M.DAlice 2012 Evista 08/28/ Hx Tablets 60mg 90tabs 1 po qd Radha Mason - Sushil, 01/14/ MTavares 2006 Oxycodone / Hx Capsules 5mg 30caps Unknown 0000 - 2013 Synthroid / Hx Unknown 0000 - 01/29/ 2015 Aspirin / Hx Chewtabs 81mg Unknown 2006 [...] Ordering Provider PT SCRN Tbco Administered Injection Phaelon Id as Non User 018 MD Lorena PT SCRN Tbco Administered Injection Nell Id as Non User 018 MD [place] Immunizations CPT Code Status Date Vaccine Lot # [id number] Given 08/28/2005 Influenza Virus Vaccine 3Years Or Older Vital Signs Date Vital Result Comment 03/24/2018 BP Systolic 102 mmHg BP Diastolic 68 mmHg Height 62 inches 5'2" Weight 160.00 lb BMI (Body Mass Index) 29.3 kg/m2 4 Parity 4 11/04/2017 BP Systolic 108 mmHg BP Diastolic [...] Description Status Comment 08/19/2017 Mammogram Completed 09/15/2013 80698 Echography Pelvic Complete Completed 09/09/2012 44778 Echography Transvaginal Completed 10/20/2011 06871 Misc. Charge To PT. Completed 07/13/2010 Colonoscopy Completed 09/16/2005 21797 DO Not Use After 532621 Completed 09/04/2003 58876 DO Not Use After 934863 Completed Encounters Type Date Location Provider CPT E/M Dx Office Visit 03/24/2018 1:00p [place] [address] B37.3 Office Visit 11/04/2017 1:00p [place] [address] Z01.419 Office Visit 07/29/2016 3:00p [facility] Benito Reyez M.D. 90459 Z01.411 D48.61 Office Visit 02/05/2015 1:30p [facility] Benito Reyez M.D. 51967 V15.89 V76.2 V72.31 733.00 Office Visit 09/15/2013 1:30p [facility] Benito Reyez M.D. 33962 V72.31 789.30 733.00 V76.2 V15.89 Office Visit 09/09/2012 11:30a [facility] Benito Reyez M.D. 67855 789.30 Office Visit 08/04/2012 10:00a [facility] Benito Reyez M.D. 36721 V72.31 733.00 620.2 V76.2 V15.89 Office Visit 06/18/2011 12:30p [facility] Benito Reyez M.D. 64142 V72.31 733.01 V76.2 V15.89 Office Visit 04/23/2010 10:40a [facility] Radha Ling M.D. 26768 V72.31 V76.41 627.3 733.01 785.6 V76.2 V15.89 Office Visit 04/17/2009 10:40a [facility] Radha Ling M.D. 94747 V72.31 V76.41 627.3 733.01 V76.2 V15.89 Office Visit 11/23/2008 1:00p [facility] Josue Conteh M.D. 38855 788.1 V67.9 Office Visit 11/16/2008 10:40a [facility] Josue Conteh M.D. 51043 788.1 616.10 Office Visit 03/23/2008 1:20p [facility] Benito Reyez M.D. 93773 V72.31 V76.2 V15.89 Office Visit 01/14/2007 10:40a [facility] Rdaha Ling M.D. 47762 V72.31 V77.1 V49.81 V76.2 Office Visit 12/30/2005 3:40p [facility] Ashlyn Yanes JR., M.D. 46687 624.1 V77.1 627.1 599.7 Office Visit 08/28/2005 1:40p [facility] Radha Ling M.D. 26792 V04.81 V76.2 624.1 V72.31 733.01 627.2 V70.0 729.5 V77.1 244.0 Office Visit 07/25/2004 11:00a [facility] Benito Reyez M.D. 72003 V72.31 V76.2 V15.89 Office Visit 05/15/2003 10:20a [facility] Radha Ling M.D. 01416 V76.2 V72.3 V76.9 V78.1 V77.1 Plan of Care No Information Available
[2018-04-05 16:27] VITALS: BP 100/41
--- NOTE | 2018-04-05 16:44 | UC ---
Ear Complaint HPI - HPI Summary HPI Summary: Pt is an 88 year old female presenting to with a chief complaint of plugged ears. The pt first thought she had a cold, but had no other symptoms and the plugged ears have lasted a couple of weeks now. She has had her earwax removed before; she states that this feels different. She lives by herself and is a former smoker; she quit about 20 years ago. The pt has not had ear or throat surgery. Patients medications reviewed this visit - History of Current Complaint Chief Complaint: UCEar Stated Complaint: EAR CLOGGED Time Seen by Provider: 04/05/18 16:30 Hx Obtained From: Patient Hx Last Menstrual Period: furnace feeder ?: No Onset/Duration: Gradual Onset, Lasting Weeks, Still Present Severity Initially: Mild Severity Currently: None Pain Intensity: 0 Pain Scale Used: 0-10 Numeric Aggravating Factors: Nothing Alleviating Factors: Nothing - Allergies/Home Medications Allergies/Adverse Reactions: Allergies Allergy/AdvReac Type Severity Reaction Status Date / Time fentanyl Allergy Unknown Difficulty Verified 04/05/18 16:27 Breathing sulfamethoxazole AdvReac Intermediate Nausea Verified 04/05/18 16:27 [From Bactrim] trimethoprim [From Bactrim] AdvReac Intermediate Nausea Verified 04/05/18 16:27 ciprofloxacin AdvReac Hives Verified 04/05/18 16:27 codeine AdvReac Hives Verified 04/05/18 16:27 Penicillins AdvReac Hives Verified 04/05/18 16:27 PMH/Surg Hx/FS Hx/Imm Hx Previously Healthy: Yes Cardiovascular History: Hypertension Respiratory History: COPD Other History Of: Anticoagulant Therapy - coumadin for a fib Negative For: HIV, Hepatitis B, Hepatitis C - Surgical History Surgical History: Yes Surgery Procedure, Year, and Place: T&A A CHILD. groin abscess A CHILD. appendectomy, cholecystectomy, [facility]. hysterectomy partial, [facility]. thyroidectomy partial, [facility]. L breast and R lung biopsies, [facility]. 1995 laminectomy L4,5, [facility]. gastrectomy partial 1973 r/t hemmorhaging ulcer;. Carpal Tunnel Surgery Right Wrist by Dr. Chauhan in July 2015. BILAT CATARACTS, [facility]. right lymph node bx 1994, [facility]. left leg [facility]- vein 2003 [facility]. Left Breast lumpectomy 1982, [facility] - Family History Known Family History: Positive: None, Cardiac Disease - father - CHF, brother - aneurysm Negative: Hypertension, Diabetes Family History: R & N/C - Social History Occupation: Retired Lives: Alone Alcohol Use: Rare Alcohol Amount: 2 drinks per week Substance Use Type: None Substance Use Comment - Amount & Last Used: oxycodone and oxymorphone Smoking Status (MU): Former Smoker Type: Cigarettes Amount Used/How Often: 2 packs per week Length of Time of Smoking/Using Tobacco: ON AND OFF 45 YRS Have You Smoked in the Last Year: No When Did the Patient Quit Smoking/Using Tobacco: 20 years ago - Immunization History Most Recent Influenza Vaccination: 2262-0407 season Most Recent Tetanus Shot: within past 5 years Most Recent Pneumonia Vaccination: 2017 Review of Systems Constitutional: Negative - fever ENT: Other - "plugged ears" All Other Systems Reviewed And Are Negative: Yes Physical Exam - Summary Physical Exam Summary: Vital Signs Reviewed: Yes A+Ox3, no distress Eyes: Conjunctiva Clear, KRYS, EOM intact and full ENT: Hearing grossly normal . Pt with large cerumen impaction b/l canals. With pt permission,using curette removed large, whole impaction from b.l ears Pt sustained abraison to inferior margin of canal on left ear. mild oozing initially - clot formed. TM b/l visualized - no fluid, erythema, retraction turbinates wnl mmmoist no exudate neck: supple Respiratory: Positive: No respiratory distress, No accessory muscle use Cardiovascular: skin color reflect adequate perfusion Musculoskeletal Exam: HERRON x 4 without difficulty Neurological: Positive: Alert, ambulatory without difficulty Psychological: Positive: Normal Response To Family Skin: Positive: no rash, no ecchymosis Triage Information Reviewed: Yes Vital Signs: Initial Vital Signs Temp 98.5 F 04/05/18 16:21 Pulse 78 04/05/18 16:21 Resp 16 04/05/18 16:21 BP 100/41 04/05/18 16:21 Pulse Ox 95 04/05/18 16:21 Ear Complaint Course/Dx - Course Course Of Treatment: Patient presents per reported that her ears are clogged. On exam patient had bilateral large cerumen impactions. With permission, both impactions removed. Impactions removed intact and whole. Patient states bilateral ears feel better on the left still feels a little bit plugged. Patient did have some trauma to the left inferior margin of the canal. Slight lose initially which is clotted. We'll give patient antibiotics to cover this. Patient placed a small piece of cotton in her left ear at time of discharge. Patient dispensed antibiotics. These events to his sulfa and pollen review of allergies patient's allergy is nausea. Patient aware and comfortable to try. Recommended follow-up with her PCP return with concerns or questions. Patient agreement with plan. - Differential Dx/Diagnosis Provider Diagnoses: cerumen impaction bilateral Discharge - Sign-Out/Discharge Documenting (check all that apply): Patient Departure All imaging exams completed and their final reports reviewed: No Studies - Discharge Plan Condition: Stable Disposition: HOME Patient Education Materials: Cerumen Impaction (ED) Referrals: Jose Thompson MD [Primary Care Provider] - Additional Instructions: - Apply ear drops to each ear, 3 times a day for 5 days - Do not stick any objects, including Q-tips, in either ear - Leave cotton ball in left ear until tomorrow - then remove - Contact Dr. Thompson to schedule a follow-up appointment at the end of the week or early next week. Contact your doctor or return with questions or concerns - Billing Disposition and Condition Condition: STABLE Disposition: Home - Attestation Statements Document Initiated by Vinceibe: Yes Documenting Scribe: Laure Logan Provider For Whom Susan is Documenting (Include Credential): Heavenly Hickey MD. Scribe Attestation: Laure Xie, scribed for Heavenly Hickey MD. on 04/05/18 at 1731. Scribe Documentation Reviewed: Yes Provider Attestation: The documentation as recorded by the Laure lynne accurately reflects the service I personally performed and the decisions made by me, Heavenly Hickey MD.
[2018-04-05] MEDS ORDERED: Neomyc/Polym/HC 1% OTIC SUSP* **OTIC BOTH EARS ONE (16:55)
== END 2018-04-05 17:22 | disposition home or self-care (01) ==
LOC: UCEAST 15:59
DX: H61.23 Impacted cerumen, bilateral (principal); Z88.1 Allergy status to other antibiotic agents; Z88.5 Allergy status to narcotic agent; Z88.0 Allergy status to penicillin; Z88.2 Allergy status to sulfonamides; I48.91 Unspecified atrial fibrillation; Z79.01 Long term (current) use of anticoagulants; Z87.891 Personal history of nicotine dependence
CPT/HCPCS: 99213; A9270-GY; G0463

== ENCOUNTER 2018-05-20 23:14 | Inpatient (IN) | payer MEDICARE, BC ==
--- NOTE | 2018-05-20 23:44 | ED ---
Shortness of Breath - HPI Summary HPI Summary: This pt is an 88 y/o female presenting to [facility] via EMS for SOB for the past 1 week. Pt reports she has bilateral lower extremity edema that has been worsening for 1 week also. She describes redness on both legs. She additionally notes right hip pain for a couple of weeks now. Denies fall or injury to site. Denies fever, chills, cough, chest pain, abd pain. She lives at home alone. Pt ambulates at baseline with a walker. PMHx includes CHF, COPD, afib. Pt does use oxygen at home. Her medications includes Torsemide and Warfarin. - History of Current Complaint Chief Complaint: EDShortnessOfBreath Hx Obtained From: Patient Onset/Duration: Lasting Weeks - 1, Still Present Timing: Constant Current Severity: Moderate Dyspnea At: Rest Aggrevating Factors: Recumbent Position Alleviating Factors: Upright Position Associated Signs & Symptoms: Edema - Allergy/Home Medications Allergies/Adverse Reactions: Allergies Allergy/AdvReac Type Severity Reaction Status Date / Time fentanyl Allergy Unknown Difficulty Verified 05/20/18 23:25 Breathing sulfamethoxazole AdvReac Intermediate Nausea Verified 05/20/18 23:25 [From Bactrim] trimethoprim [From Bactrim] AdvReac Intermediate Nausea Verified 05/20/18 23:25 ciprofloxacin AdvReac Hives Verified 05/20/18 23:25 codeine AdvReac Hives Verified 05/20/18 23:25 Penicillins AdvReac Hives Verified 05/20/18 23:25 Home Medications: Home Medications Cyclobenzaprine TAB* [Flexeril 10 MG TAB*] 5 mg PO BEDTIME PRN 05/20/18 [ History Confirmed 05/20/18] Furosemide TAB* [Lasix TAB*] 40 mg PO DAILY 05/20/18 [History Confirmed 05/20/18 ] Gabapentin CAP(*) [Neurontin 100 mg CAP(*)] 100 mg PO TID PRN 05/20/18 [History Confirmed 05/20/18] LORazepam TAB(*) [Ativan 0.5 MG TAB (*)] 0.5 mg PO BID 05/20/18 [History Confirmed 05/20/18] Levalbuterol HFA INHALER* [Xopenex Hfa Inhaler*] 2 puff INH QID PRN 05/20/18 [ History Confirmed 05/20/18] Risedronate (NF) [Actonel (NF)] 35 mg PO WEEKLY 05/20/18 [History Confirmed 02/27] PMH/Surg Hx/FS Hx/Imm Hx Endocrine/Hematology History: Reports: Hx Anticoagulant Therapy - coumadin for a fib, Hx Blood Disorders - chronic thrombocytopenia, Hx Thyroid Disease - juwan, Hx Anemia - HX OF Denies: Hx Diabetes Cardiovascular History: Reports: Hx Angina, Hx Congestive Heart Failure, Hx Coronary Artery Disease, Hx Hypercholesterolemia, Hx Hypertension, Other Cardiovascular Problems/Disorders - AFIB Denies: Hx Aneurysm, Hx Auto Implanted Cardiovert Defib, Hx Cardiac Arrest, Hx Cardiomegaly, Hx Deep Vein Thrombosis, Hx Myocardial Infarction, Hx Pacemaker /ICD, Hx Valvular Heart Disease Respiratory History: Reports: Hx Asthma, Hx Chronic Obstructive Pulmonary Disease (COPD) - 2L O2 @ night, Hx Pneumonia - Hospitalized from 10/14/14 - and 04/26; 01/2017, Hx Seasonal Allergies, Other Respiratory Problems/ Disorders - BILAT PNEUMONIA 10/25. PT WITH TB 1994 Denies: Hx Lung Cancer - 2L O2 at night - on 4L continuous since pneumonia January 2017, Hx Pulmonary Embolism GI History: Reports: Hx Gall Bladder Disease - cholecystectomy 1976, Hx Gastroesophageal Reflux Disease - CONTROL WITH MED, Hx Ulcer, Other GI Disorders - partial gastrectomy 1972 Denies: Hx Gastrointestinal Bleed, Hx Urosepsis History: Reports: Other Problems/Disorders - hysterectomy breast biopsy left Denies: Hx Acute Renal Failure, Hx Benign Prostatic Hyperplasia, Hx Kidney Stones, Hx Renal Disease Musculoskeletal History: Reports: Hx Arthritis - BACK, KNEES, Hx Back Problems - laminectomy, Hx Orthopedic Injury - hx r arm, r ankle, toes, Other Musculoskeletal History - back surgery 1995 Sensory History: Reports: Hx Cataracts - removed Denies: Hx Contacts or Glasses, Hx Eye Injury, Hx Eye Prosthesis, Hx Glaucoma , Hx Macular Degeneration, Hx Deafness, Hx Hearing Aid, Hx Hearing Problem, Other Sensory Impairments Opthamlomology History: Reports: Hx Cataracts - removed Denies: Hx Contacts or Glasses, Hx Eye Injury, Hx Eye Prosthesis, Hx Glaucoma , Hx Macular Degeneration, Other Sensory Impairments Neurological History: Reports: Other Neuro Impairments/Disorders - PERIPHERAL NEUROPATHY BILAT Denies: Hx Dementia, Hx Developmental Delay, Hx Migraine, Hx Seizures, Hx Transient Ischemic Attacks (TIA) Psychiatric History: Reports: Hx Anxiety - CONTROL WITH MED, Hx Depression - CONTROL WITH MED Denies: Hx Panic Disorder, Hx Schizophrenia, Hx Bipolar Disorder, Hx Suicide Attempt, Hx of Violent Episodes Against Others - Cancer History Cancer Type, Location and Year: breast lumpectomy was benign Hx Chemotherapy: No Hx Radiation Therapy: No - Surgical History Surgery Procedure, Year, and Place: T&A A CHILD. groin abscess A CHILD. appendectomy, cholecystectomy, [facility]. hysterectomy partial, [facility]. thyroidectomy partial, [facility]. L breast and R lung biopsies, [facility]. 1995 laminectomy L4,5, [facility]. gastrectomy partial 1972 r/t hemmorhaging ulcer;. Carpal Tunnel Surgery Right Wrist by Dr. Chauhan in July 2015. BILAT CATARACTS, [facility]. right lymph node bx 1994, [facility]. left leg [facility]- vein 2003 [facility]. Left Breast lumpectomy 1982, [facility] Hx Anesthesia Reactions: No - Immunization History Date of Tetanus Vaccine: 2013 Date of Influenza Vaccine: Fall 2012 Infectious Disease History: No Infectious Disease History: Reports: Hx Tuberculosis, History Other Infectious Disease - hx e-coli sepsis and pneumonia February 2017 Denies: Hx Clostridium Difficile, Hx Hepatitis, Hx Human Immunodeficiency Virus (HIV), Hx of Known/Suspected MRSA, Hx Known/Suspected VRE, Hx Known/ Suspected VRSA, Traveled Outside the [place] in Last 30 Days - Family History Known Family History: Positive: Cardiac Disease - father - CHF, brother - aneurysm Negative: Hypertension, Diabetes - Social History Alcohol Use: Rare Alcohol Amount: 2 drinks per week Hx Substance Use: No Substance Use Type: Reports: None Substance Use Comment - Amount & Last Used: oxycodone and oxymorphone Hx Tobacco Use: Yes Smoking Status (MU): Former Smoker Type: Cigarettes Amount Used/How Often: 2 packs per week Length of Time of Smoking/Using Tobacco: ON AND OFF 45 YRS Have You Smoked in the Last Year: No Review of Systems Negative: Fever, Chills Negative: Chest Pain Positive: Shortness Of Breath. Negative: Cough Negative: Abdominal Pain Musculoskeletal: Other - POS: Right hip pain Positive: Edema - in bilateral LE Skin: Other - redness on bilateral legs All Other Systems Reviewed And Are Negative: Yes Physical Exam - Summary Physical Exam Summary: VITAL SIGNS: Reviewed. GENERAL: Patient is a well-developed and nourished female who is lying comfortable in the stretcher. HEAD AND FACE: No signs of trauma. No ecchymosis, hematomas or skull depressions. No sinus tenderness. EYES: PERRLA, EOMI x 2, No injected conjunctiva, no nystagmus. EARS: Hearing grossly intact. Ear canals and tympanic membranes are within normal limits. MOUTH: Oropharynx within normal limits. NECK: Supple, trachea is midline, no adenopathy, no JVD, no carotid bruit, no c- spine tenderness, neck with full ROM. CHEST: Symmetric, no tenderness at palpation LUNGS: Decreased breath sounds CVS: Irregular rate and rhythm, S1 and S2 present, no murmurs or gallops appreciated. ABDOMEN: Soft, non-tender. Abdomen is distended. No rebound no guarding, and no masses palpated. Bowel sounds are normal. EXTREMITIES: FROM in all major joints, no cyanosis or clubbing. Bilateral lower extremity edema. NEURO: Alert and oriented x 3. No acute neurological deficits. Speech is normal and follows commands. SKIN: Dry and warm. Chronic skin changes with bilateral hyperemia in both legs. Ecchymotic area on left lower thigh medially. Triage Information Reviewed: Yes Vital Signs On Initial Exam: Initial Vitals Temp Pulse Resp BP Pulse Ox 97.1 F 82 16 143/82 100 05/20/18 23:22 05/20/18 23:22 05/20/18 23:22 05/20/18 23:22 05/20/18 23:22 Vital Signs Reviewed: Yes Diagnostics - Vital Signs Vital Signs Temp Pulse Resp BP Pulse Ox 05/20/18 23:22 97.1 F 82 16 143/82 100 - Laboratory Result Diagrams: 05/21/18 00:14 05/21/18 00:14 Lab Statement: Any lab studies that have been ordered have been reviewed, and results considered in the medical decision making process. - Radiology Chest XR Radiology Interpretation Completed By: ED Physician Summary of Radiographic Findings: Bilateral venous congestion consistent with CHF. Pending official radiology report. - EKG 23:50 Cardiac Rate: NL - at 78 bpm EKG Rhythm: Atrial Fibrillation Summary of EKG Findings: Atrial fibrillation at 78 bpm - Additional Comments Diagnostic Additional Comments: Venous Doppler Study, Bilateral Lower Extremities (as read by radiologist) IMPRESSION: No acute findings. No evidence of deep vein thrombosis. Extensive soft tissue edema involving the right calf. This limits evaluation of the right calf vessels. Dr. Cornell has reviewed this report. Course/Dx - Course Assessment/Plan: Pt is an 88 y/o female, with hx of afib, CHF, COPD, presents to the ED for SOB for the past 1 week. Pt reports she has bilateral lower extremity edema that has been worsening for 1 week also. She describes redness on both legs. She additionally notes right hip pain for a couple of weeks now. Denies fall or injury to site. Denies fever, chills, cough, chest pain, abd pain. Pt wears oxygen at home. Test results show hemoglobin of 9.8, hematocrit of 31, platelet count of 127, BUN of 56, creatinine of 1.65, BNP of 694. In the ED course the pt was given duoneb and Lasix. Chest XR shows bilateral venous congestion consistent with CHF. US of bilateral lower extremities show no acute findings. No evidence of deep vein thrombosis. Extensive soft tissue edema involving the right calf. This limits evaluation of the right calf vessels. I discussed the case with Dr. Drew, hospitalist, who accepted the pt for admission. - Diagnoses Provider Diagnoses: CHF (congestive heart failure) - Physician Notifications Discussed Care of Patient With: Jessica Drew - hospitalist Time Discussed With Above Provider: 01:03 Instructed by Provider To: Admit As Inpatient Discharge - Sign-Out/Discharge Documenting (check all that apply): Patient Departure - Admit to [facility] - Discharge Plan Condition: Stable Disposition: ADMITTED TO [facility] Referrals: Jose Thompson MD [Primary Care Provider] - - Attestation Statements Document Initiated by Scribe: Yes Documenting Scribe: Patricia Orourke Provider For Whom Susan is Documenting (Include Credential): Ariel Cornell MD Scribe Attestation: IPatricia, scribed for Ariel Cornell MD on 05/21/18 at 0124.
[2018-05-20] MEDS ORDERED: Albuterol/Ipratropium NEB.SOL* Albuterol 2.5 MG/Ipratropium 0.5 MG 3 ML INH ONE (23:48)
--- OUTSIDE RECORDS SUMMARY | 2018-05-21 00:22 | XMS REPORT | Continuity of Care Document ---
:1930 External Reference #:[id number] Author Name Rupert Benton MD Address [address] [place] [address] Care Team Providers Name Role Phone Neelima Kaiser Care Team Information Inspecting Supervisor Unavailable Jose Thompson M.D. Primary Care Physician Unavailable Payers Type Date Identification Numbers Payment Provider Subscriber Policy Number: [id number] [employer] [employer] Theresa Saldana PayID: [id number] [address] [place] [address] Policy Number: [id number] [facility] Saldana PayID: [id number] [address] [address] [place] [address] Advance Directives Description No Information Available Problems Date Description Provider Status Onset: 04/23/2018 Contusion of face, scalp and neck, Rupert Benton MD Active excluding eye(s) Family History Date Family Member(s) Problem(s) Comments General Family History Unknown Social History Type Date Description Comments Sex Unknown Occupation Retired Tobacco Use Start: Unknown End: Former Cigarette Smoker 1-5 quit age 64 Unknown Cigarettes Daily Tobacco Use Start: Unknown Never Smoked Cigars Tobacco Use Start: Unknown Never Smoked A Pipe Smokeless Tobacco Never Used Smokeless Tobacco ETOH Use Currently rarely consumes alcohol Allergies, Adverse Reactions, Alerts Date Description Reaction Status Severity Comments 04/23/2018 Cipro Active 04/23/2018 Penicillin Active 04/23/2018 Duragesic Active 04/23/2018 Bactrim Active Medications Medication Date Status Form Strength Qnty SIG Indications Ordering Provider Levothyroxine 00/00/ Active Tablets 25mcg Brisa, Sodium 0000 Surekha N.P. Metoprolol 00/00/ Active Tablets ER 25mg Take One Unknown Succinate ER 0000 24HR Tablet By Mouth Every Day Spironolactone / Active Tablets 25mg Take One Unknown 0000 Tablet By Mouth Every Morning Torsemide / Active Tablets 20mg Take Two Unknown 0000 Tablets By Mouth Twice A Day Oxymorphone HCL / Active Tablets ER 15mg Take One Unknown ER 0000 12HR Tablet By Mouth Every 12 Hours as Needed Maximum Daily Dose 2 Oxycodone HCL / Active Tablets 15mg Take One Unknown 0000 Tablet By Mouth Every 4 To 6 Hours as Needed For Pain Maximum Daily Dose 4 Levalbuterol / Active Aerosol 45mcg/Act Darlow, Tartrate 0000 Jose M.D. Cartia XT / Active Caps ER 120mg Darlow, 0000 24HR Jose M.DAlice Furosemide / Active Tablets 20mg Unknown 0000 Omeprazole / Active Capsules 20mg Take One Unknown 0000 DR Capsule By Mouth Every Day Ranitidine HCL / Active Tablets 150mg Take 1 Unknown 0000 Tablet By Mouth Every Morning Lorazepam / Active Tablets 0.5mg Take One Unknown 0000 Tablet Twice Daily as Needed For Anxiety. Max. Daily Dose 2 Tabs. Amitiza / Active Capsules 24mcg Swanstrom 0000 P.A., Helen Vandazole / Active Gel 0.75% Apply Unknown 0000 Vaginaly AT Bedtime Lidocaine / Active Patches 5% Devi, 0000 Benita [employer] Spiriva / Active Capsules 18mcg Darlow, Handihaler 0000 Jose M.D. Olopatadine HCL / Active Solution 0.1% Instill Unknown 0000 One Drop Into The Affected Eye S Two Times A Day as Needed For Itching Immunizations Description No Information Available Vital Signs Date Vital Result Comment 04/23/2018 11:39am Weight 141.00 lb Weight 63.958 kg Height 64 inches 5'4" Height in cm's 162.6 cm BMI (Body Mass Index) 24.2 kg/m2 Results Description No Information Available Procedures Date Code Description Status 05/16/2008 23091 No Show Fee Completed Encounters Type Date Location Provider Dx Diagnosis Office Visit 04/23/2018 Abran,Jan Benton, S00.432A Contusion of left 11:15a 07/13/07 ear, initial encounter H92.02 Otalgia, left ear Plan of Treatment 04/23/2018 - Rupert Benton, MDS00.432A Contusion of left ear, initial encounterComments:I think her symptoms are most likely related to the significant amount of dried blood in the canal.This should improve I have advised to use some mineral oil to soften it up for at least 1 week 3-4 drops at bedtime no additional treatment is necessary.H92.02 Otalgia, left ear
[2018-05-21 00:32] LABS: Activated Partial Thrombo Time 51.5 seconds (26.0-36.3); INR 2.73 (0.77-1.02)
[2018-05-21 00:33] LABS: ABS Basophils 0 10^3/ul (0-0.2); ABS Eosinophils 0 10^3/ul (0-0.6); ABS Lymphocytes 1.1 10^3/ul (1.0-4.8); ABS Monocytes 0.4 10^3/ul (0-0.8); ABS Neutrophils 2.2 10^3/ul (1.5-7.7); ABS Nucleated RBC 0 10^3/ul; Eosinophil % 0.7 % (0-6); Hematocrit 31 % (35-47); Hemoglobin 9.8 g/dl (12.0-16.0); Lymphocyte % 29.4 % (25-47); Mean Corpuscular HGB Conc 31 g/dl (31-36); Mean Corpuscular Hemoglobin 25 pg (27-31); Mean Corpuscular Volume 80 fL (80-97); Mean Platelet Volume 8.4 fL (7.4-10.4); Nucleated Red Blood Cells % 0.2; Platelet Count 127 10^3/ul (150-450); Red Blood Count 3.89 10^6/ul (4.00-5.40); Red Cell Distribution Width 21 % (10.5-15); White Blood Count 3.8 10^3/ul (3.5-10.8)
[2018-05-21 00:39] LABS: Albumin/Globulin Ratio 0.9 (1-3); BUN/Creatinine Ratio 33.9 (8-20); C Reactive Protein 18.73 mg/L (<8.01); EGFR Non-African American 29.4 (>60); Globulin 3.2 g/dL (2-4); Potassium 4.9 mmol/L (3.5-5.0); Total Bilirubin 0.4 mg/dL (0.2-1.0); Total Protein 6.2 g/dL (6.4-8.9)
[2018-05-21] MEDS ORDERED: Furosemide IV* 10 MG/ML VIAL (40 MG) IV SLOW PU ONE (00:47)
--- NOTE | 2018-05-21 01:29 | ADMNOTE ---
Subjective Date of Service: 05/21/18 Interval History: code status full this is admission h/p hpi this is a 88 yr old wf with hx of copd on nocturnal oxygen 2 liter/ prn oxygen if sob during the day, a fib on coumadin, diastolic hf with ef 55-60 percent on echo 07/29 with severe dilated left atrium presented to er one week duration of tirado leg edema but has been worse for one day hx ---> called ems to come in. intial ekg showed a fib at rate of 70s no acute st t change. trop was neg. chest x ray did not reveal any acute opacity but her bnp went from baseline 500 to 800. she has chronic le edema with venous stasis scar on lasix 40 mg daily ---> lasix 40 mg ivp given by er. le sono ordered by er but pending. pt has been on coumadin with theraputic inr 2.73. pt says she lives alone and walks with a walker but has problem with her ll when she was examed ---> could only lift 10 degree and says it has been like that for a long time ---> will ask pt to see her reg her ambulation status ( pt had exercise stress test 2016 ) phx cad s/p cardiac cath 2010 showed prox lad stenosis 50 percent repeat stress 2017 neg diastolic hf 55-60 percent with severe dilated left atrium copd quit cig smoke 3-4 yrs ago on nocturnal oxygen 2 liter but uses prn during the daytime only if she is sob chronic pedal edema from ankle with knee a fib on coumadin chronic pain syndrome lbp with neuropathy unsteady gait walks with a walker pshx s/p appy s/p cholycystectomy s/p partial hysterectomy social hx quit cig smoke 3-4 yrs ago no etoh no ivda lives alone walks with a walker fhx denied any htn/dm/cad/cva Review of Systems - Measurements Intake and Output: Intake and Output Last 24 Hours 05/18/18 05/19/18 05/20/18 05/21/18 06:59 06:59 06:59 06:59 Weight 141 lb - Review of Systems General Comments: pertinent as per hpi Objective Active Medications: Acetaminophen (Tylenol Tab*) 650 mg PO Q4H PRN PRN Reason: FEVER/PAIN Albuterol/Ipratropium (Duoneb (Albuterol 2.5 Mg/Ipratropium 0.5 Mg)) 1 neb INH RT.[id number] AWAKE PRN PRN Reason: sob/wheexing Vital Signs - 8 hr 05/20/18 05/20/18 05/20/18 23:22 23:35 23:52 Temperature 97.1 F Pulse Rate 82 82 83 Respiratory 16 27 Rate Blood Pressure 143/82 (mmHg) O2 Sat by Pulse 100 92 99 Oximetry 05/21/18 05/21/18 05/21/18 00:00 00:01 00:05 Temperature Pulse Rate 86 83 75 Respiratory 12 Rate Blood Pressure 116/75 (mmHg) O2 Sat by Pulse 100 95 Oximetry 05/21/18 00:31 Temperature Pulse Rate 80 Respiratory Rate Blood Pressure 108/77 (mmHg) O2 Sat by Pulse 100 Oximetry Oxygen Devices in Use Now: Nasal Cannula Appearance: nad Eyes: No Scleral Icterus, PERRLA Ears/Nose/Mouth/Throat: NL Teeth, Lips, Gums, Clear Oropharnyx, Mucous Membranes Moist Neck: NL Appearance and Movements; NL JVP, Trachea Midline, No Thyroid Enlargement, Masses, - - no jvd Respiratory: Symmetrical Chest Expansion and Respiratory Effort, - - b/l decreased b/s no wheezing Cardiovascular: - - s1 s2 irr irr no murmur Extremities: - - 3+ pedal edema from ankle to knee b/l with venous stasis scar Skin: - - + erythema from ankle to knee level b/l but no warmth Neurological: Alert and Oriented x 3 - cranial n 2-12 grossly intact able to raise ue and rle with no gross problem but lle only to 10 degree sensory b/l ue and le equal plantar reflex downwards Result Diagrams: 05/22/18 05:42 05/22/18 05:42 EKG Data: ekg a fib at rate of [address] t change Assess/Plan/Problems-Billing Assessment: this is a 88 yr old wf lives alone with mulitple medical problems presented to er with increased sob/pedal edema for one week but getting worse for one day --- > bnp is 800s but her baseline around 500 hx of copd but only uses oxygen at night ---> le sono done result pending ua requested pt could only lift her lle to 10 degree for 10 sec etiology unclear - Patient Problems (1) Acute diastolic (congestive) heart failure Current Visit: No Status: Acute Code(s): I50.31 - ACUTE DIASTOLIC ( CONGESTIVE) HEART FAILURE SNOMED Code(s): 568816227 Comment: got lasix iv from er pt has been on lasix and aldactone at home bnp is 800s <--- baseline 500s ---> last lvef was 55-60s will maintain her home dose of diuretics and moniter daily input and outpt (2) Chronic obstructive pulmonary disease (COPD) Current Visit: Yes Status: Acute Code(s): J44.9 - CHRONIC OBSTRUCTIVE PULMONARY DISEASE, UNSPECIFIED SNOMED Code(s): 62519885 Comment: oxygen support as tolerated she may need more frequent oxygen during the day too (3) A-fib Current Visit: Yes Status: Acute Code(s): I48.91 - UNSPECIFIED ATRIAL FIBRILLATION SNOMED Code(s): 12241668 Comment: -Continue Coumadin -Continue Diltiazem (4) Chronic kidney disease Current Visit: No Status: Acute Code(s): N18.9 - CHRONIC KIDNEY DISEASE, UNSPECIFIED SNOMED Code(s): 221575677 Comment: - Stable (5) Leg edema Current Visit: Yes Status: Acute Code(s): R60.0 - LOCALIZED EDEMA SNOMED Code(s): 111983279 Comment: chronic pedal edema await for leg sono ordered by e but has been on coumadin with theraputic inr supportive care (6) Left leg weakness Current Visit: Yes Status: Acute Code(s): R29.898 - OTH SYMPTOMS AND SIGNS INVOLVING THE MUSCULOSKELETAL SYSTEM SNOMED Code(s): 605465767 Comment: pt only lift her lle against gravity 10 degree for 2 sec but as per nursing staff from er and the floor ---> she can transfer herself from the stretch to commode with assistance of one person and walker pt pradip in am because she lives alone
[2018-05-21 02:31] LABS: Urine Appearance Clear; Urine Bilirubin Negative (Negative); Urine Blood Negative (Negative); Urine Color Straw; Urine Glucose Negative (Negative); Urine Ketones Negative (Negative); Urine Nitrite Negative (Negative); Urine Protein Negative (Negative); Urine Specific Gravity 1.006 (1.010-1.030); Urine Urobilinogen Negative (Negative)
[2018-05-21] MEDS ORDERED: Albuterol/Ipratropium NEB.SOL* Albuterol 2.5 MG/Ipratropium 0.5 MG 3 ML INH PRN ×2 (03:00→03:54)
[2018-05-21] MEDS ORDERED: OXYMORPHONE PO PRN (03:54)
[2018-05-21] MEDS ORDERED: oxyCODONE TAB* 5 MG TAB PO PRN ×2 (03:54→05:45)
[2018-05-21] MEDS ORDERED: Nitroglycerin TAB 0.4 MG* 0.4 MG TAB SL PRN (03:54)
[2018-05-21] MEDS ORDERED: Levalbuterol HFA INHALER* 1 PUFF MDI INH PRN (03:54)
[2018-05-21] MEDS ORDERED: Gabapentin CAP(*) 100 MG PO PRN (03:54)
[2018-05-21] MEDS ORDERED: Cyclobenzaprine TAB* 10 MG PO PRN (03:54)
[2018-05-21] MEDS ORDERED: Docusate CAP* 100 MG PO PRN (03:54)
[2018-05-21] MEDS: Levothyroxine TAB* 25 MCG TAB PO SCH (06:26)
[2018-05-21 06:48] LABS: ABS Basophils 0 10^3/ul (0-0.2); ABS Eosinophils 0 10^3/ul (0-0.6); ABS Lymphocytes 1.3 10^3/ul (1.0-4.8); ABS Monocytes 0.4 10^3/ul (0-0.8); ABS Neutrophils 1.3 10^3/ul (1.5-7.7); ABS Nucleated RBC 0 10^3/ul; Eosinophil % 1.2 % (0-6); Hematocrit 32 % (35-47); Mean Corpuscular HGB Conc 31 g/dl (31-36); Mean Corpuscular Hemoglobin 25 pg (27-31); Mean Corpuscular Volume 80 fL (80-97); Mean Platelet Volume 8.7 fL (7.4-10.4); Nucleated Red Blood Cells % 0.3; Platelet Count 122 10^3/ul (150-450); Red Blood Count 3.97 10^6/ul (4.00-5.40); Red Cell Distribution Width 22 % (10.5-15); White Blood Count 3.1 10^3/ul (3.5-10.8)
[2018-05-21 06:53] LABS: INR 2.44 (0.77-1.02)
[2018-05-21 07:07] LABS: BUN/Creatinine Ratio 35.8 (8-20); Calcium 8.1 mg/dL (8.6-10.3); EGFR Non-African American 32.5 (>60); HDL Cholesterol 56.2 mg/dL; Potassium 4.4 mmol/L (3.5-5.0)
[2018-05-21] MEDS: Tiotropium CAP.INH* CAP.INH/18 MCG (USE ORDER SET !) INH SCH (08:01)
[2018-05-21] MEDS: Mometasone/Formoter 200/5 MDI INH SCH ×2 (08:01→19:47)
[2018-05-21] MEDS: Simethicone TAB* 80 MG TAB.CHEW PO SCH ×3 (08:53→18:18)
[2018-05-21] MEDS: Pregabalin CAP(*) 50 MG PO SCH ×2 (08:53→20:17)
[2018-05-21] MEDS: Famotidine TAB* 20 MG PO SCH (08:53)
[2018-05-21] MEDS: Calcium Polycarbophil TAB* 625 MG PO SCH ×2 (08:53→20:17)
[2018-05-21] MEDS: Calcium Carbonate CHEW TAB* 500 MG (TUMS) PO SCH (08:53)
[2018-05-21] MEDS: Spironolactone TAB* 25 MG PO SCH (08:53)
[2018-05-21] MEDS: Cholecalciferol TAB* 400 UNIT PO SCH (08:53)
[2018-05-21] MEDS: Omeprazole CAP* 20 MG PO SCH ×2 (08:53→08:54)
[2018-05-21] MEDS ORDERED: Furosemide TAB* 40 MG PO SCH (09:00)
[2018-05-21] MEDS ORDERED: Spiriva Inhaler DEVICE* 1 EACH DEVICE INH ONE (09:00)
[2018-05-21] MEDS ORDERED: Diltiazem CD CAP* 120 MG PO SCH (09:00)
[2018-05-21] MEDS ORDERED: Pregabalin CAP(*) 50 MG PO SCH (09:00)
[2018-05-21] MEDS ORDERED: Lidocaine PATCH 5%* 1 PATCH TRANSDERM PRN (09:00)
[2018-05-21 10:41] LABS: INR 2.4 (0.77-1.02)
[2018-05-21] MEDS: oxyCODONE TAB* 5 MG TAB PO PRN (13:48)
[2018-05-21] MEDS: Warfarin TAB(*) 3 MG PO SCH (16:31)
[2018-05-21] MEDS: DOXYcycline IV* 100 MG in NS 0.9% 250 ML* 250 ML IVPB SCH (16:31)
--- NOTE | 2018-05-21 17:45 | PN ---
Subjective Date of Service: 05/21/18 Interval History: Pt seen and examined. Meds and labs reviewed. CC: N/A ROS: Denied HOOK/dizziness, F/C, N/V, CP, SOB, increased cough, sputum production , abd pain, diarrhea, constipation, dysuria, myalgias, arthralgias, throat pain , and new skin lesions. The rest of the 14 point ROS are unremarkable. PHYSICAL EXAM: GEN APPEARANCE: Awake, not in acute distress HEENT: NC/AT, PERRLA, moist oral mucosa, (-) throat erythema NECK: Soft, supple, (-) cervical LAD, (-)JVD HEART: S1S2 WNL, RRR, No MRG CHEST: CTA, BL, GAE, No W/R/R ABD: Soft, ND/NT, NABS 4x Q EXT: No C/C/BLLE edema 3+, tender, erythematous SKIN: Warm to touch PSYCH: No active psychosis, hallucinations, depression, SI/HI Objective Active Medications: Acetaminophen (Tylenol Tab*) 650 mg PO Q4H PRN PRN Reason: FEVER/PAIN Albuterol/Ipratropium (Duoneb (Albuterol 2.5 Mg/Ipratropium 0.5 Mg)) 1 neb INH RT.[id number] AWAKE PRN PRN Reason: sob/wheexing Albuterol/Ipratropium (Duoneb (Albuterol 2.5 Mg/Ipratropium 0.5 Mg)) 1 neb INH Q4H PRN PRN Reason: SHORTNESS OF BREATH Calcium Carbonate (Tums*) 500 mg PO DAILY [facility] Last Admin: 05/21/18 08:53 Dose: 500 mg Calcium Polycarbophil (Fibercon Tab*) 625 mg PO BID [facility] Last Admin: 05/21/18 08:53 Dose: 625 mg Cetirizine HCl (Zyrtec*) 10 mg PO QPM [facility]; Protocol Cholecalciferol (Vitamin D Tab*) 800 unit PO DAILY [facility] Last Admin: 05/21/18 08:53 Dose: 800 unit Cyclobenzaprine HCl (Flexeril Tab*) 5 mg PO BEDTIME PRN PRN Reason: SPASMS - MUSCLE Diltiazem HCl (Cardizem Cd Cap*) 120 mg PO DAILY [facility] Last Admin: 05/21/18 08:53 Dose: 120 mg Docusate Sodium (Colace Cap*) 100 mg PO BID PRN PRN Reason: CONSTIPATION Famotidine (Pepcid Tab*) 20 mg PO QAM [facility]; Protocol Last Admin: 05/21/18 08:53 Dose: 20 mg Furosemide (Lasix Iv*) 40 mg IV DAILY [facility] Doxycycline Hyclate 100 mg/ (Sodium Chloride) 250 mls @ 250 mls/hr IVPB Q12H [facility] Last Admin: 05/21/18 16:31 Dose: 250 mls/hr Levalbuterol HCl (Xopenex Hfa Inhaler*) 2 puff INH QID PRN PRN Reason: SHORTNESS OF BREATH Levothyroxine Sodium (Synthroid Tab*) 12.5 mcg PO DAILY@0600 [facility] Last Admin: 05/21/18 06:26 Dose: 12.5 mcg Lidocaine (Lidoderm 5% Patch*) 1 patch TRANSDERM DAILY PRN PRN Reason: PAIN Mometasone Furoate/Formoterol Fumar (Dulera 200/5 Mdi*) 2 puff INH BID [facility]; Protocol Last Admin: 05/21/18 08:01 Dose: 2 puff Nitroglycerin (Nitroglycerin Tab 0.4 Mg*) 0.4 mg SL Q5M PRN PRN Reason: PAIN - CHEST Omeprazole (Prilosec Cap*) 20 mg PO DAILY [facility] Last Admin: 05/21/18 08:54 Dose: Not Given Oxycodone HCl (Roxycodone Tab*) 5 mg PO Q6H PRN PRN Reason: PAIN Last Admin: 05/21/18 13:48 Dose: 5 mg Pharmacy Profile Note (Coumadin Per Pharmacy*) 0 note FOLLOW UP 1700 [facility] Last Admin: 05/21/18 16:32 Dose: 1 note Pregabalin (Lyrica Cap(*)) 50 mg PO BID [facility] Last Admin: 05/21/18 08:53 Dose: 50 mg Simethicone (Mylicon Tab*) 80 mg PO TID PC [facility] Last Admin: 05/21/18 13:48 Dose: 80 mg Spironolactone (Aldactone Tab*) 25 mg PO DAILY [facility] Last Admin: 05/21/18 08:53 Dose: 25 mg Tiotropium [place] (Spiriva Cap.Inh*) 1 cap INH DAILY [facility] Last Admin: 05/21/18 08:01 Dose: 1 cap Warfarin Sodium (Coumadin Tab(*)) 3 mg PO 1700 [facility]; Protocol Last Admin: 05/21/18 16:31 Dose: 3 mg Vital Signs - 8 hr 05/21/18 05/21/18 05/21/18 11:30 11:39 13:48 Temperature 97.5 F Pulse Rate 55 Respiratory 18 11 18 Rate Blood Pressure 102/45 (mmHg) O2 Sat by Pulse 100 Oximetry 05/21/18 05/21/18 15:43 16:25 Temperature 97.6 F Pulse Rate 62 Respiratory 17 12 Rate Blood Pressure 98/47 (mmHg) O2 Sat by Pulse 98 Oximetry Oxygen Devices in Use Now: Nasal Cannula Result Diagrams: 05/21/18 06:19 05/21/18 06:19 EKG Data: ekg a fib at rate of [address] t change Assess/Plan/Problems-Billing Assessment: this is a 88 yr old wf lives alone with mulitple medical problems presented to er with increased sob/pedal edema for one week but getting worse for one day --- > bnp is 800s but her baseline around 500 hx of copd but only uses oxygen at night ---> le viviano done result pending ua requested pt could only lift her lle to 10 degree for 10 sec etiology unclear - Patient Problems (1) CHF exacerbation Current Visit: Yes Status: Acute Code(s): I50.9 - HEART FAILURE, UNSPECIFIED SNOMED Code(s): 50121376 Comment: -Moderate exacerbation -Will change PO Lasix to IV -Will follow BNP in AM (2) Cellulitis Current Visit: Yes Status: Acute Code(s): L03.90 - CELLULITIS, UNSPECIFIED SNOMED Code(s): 729553752 Comment: -Given above physical exam, consistent with cellulitis -Will place pt on IV Doxycycline after appropriate cultures have been drawn (3) A-fib Current Visit: Yes Status: Acute Code(s): I48.91 - UNSPECIFIED ATRIAL FIBRILLATION SNOMED Code(s): 29246808 Comment: -Continue Coumadin -Continue Diltiazem (4) CKD (chronic kidney disease) Current Visit: Yes Status: Acute Code(s): N18.9 - CHRONIC KIDNEY DISEASE, UNSPECIFIED SNOMED Code(s): 484101138 Comment: -Stable -Continue watchful waiting (5) DVT prophylaxis Current Visit: Yes Status: Acute Code(s): JRY5366 - SNOMED Code(s): 750395660 Comment: -Continue Coumadin -Follow daily INRs Status and Disposition: -Appreciate PT eval---no identified needs -For D/C home when improved in 2 days
[2018-05-21] MEDS: Cetirizine* 10 MG TAB PO SCH (18:18)
[2018-05-22] MEDS ORDERED: LORazepam TAB(*) 0.5 MG PO STA (01:25)
[2018-05-22] MEDS: Levothyroxine TAB* 25 MCG TAB PO SCH (05:09)
[2018-05-22] MEDS: Diltiazem TAB* 30 MG PO SCH ×3 (05:09→23:23)
[2018-05-22] MEDS: oxyCODONE TAB* 5 MG TAB PO PRN ×3 (05:10→18:52)
[2018-05-22] MEDS: DOXYcycline IV* 100 MG in NS 0.9% 250 ML* 250 ML IVPB SCH ×2 (05:10→17:33)
[2018-05-22 06:01] LABS: Hematocrit 31 % (35-47); Mean Corpuscular HGB Conc 32 g/dl (31-36); Mean Corpuscular Hemoglobin 26 pg (27-31); Mean Corpuscular Volume 80 fL (80-97); Mean Platelet Volume 8.4 fL (7.4-10.4); Platelet Count 120 10^3/ul (150-450); Red Cell Distribution Width 22 % (10.5-15); White Blood Count 3.5 10^3/ul (3.5-10.8)
[2018-05-22 06:17] LABS: Albumin 2.8 g/dL (3.2-5.2); Albumin/Globulin Ratio 0.9 (1-3); BUN/Creatinine Ratio 34.5 (8-20); EGFR Non-African American 35.8 (>60); Magnesium 1.5 mg/dL (1.9-2.7); Potassium 4.5 mmol/L (3.5-5.0); Total Bilirubin 0.5 mg/dL (0.2-1.0); Total Protein 5.8 g/dL (6.4-8.9)
[2018-05-22] MEDS: Tiotropium CAP.INH* CAP.INH/18 MCG (USE ORDER SET !) INH SCH (07:24)
[2018-05-22] MEDS: Mometasone/Formoter 200/5 MDI INH SCH ×2 (07:24→20:14)
[2018-05-22] MEDS ORDERED: Magnesium Sulf 4 GM/100 ML IV* 4,000 MG/100 ML BAG IVPB ONE (08:07)
[2018-05-22] MEDS ORDERED: Furosemide IV* 10 MG/ML VIAL (40 MG) IV SCH (09:00)
[2018-05-22] MEDS: Calcium Carbonate CHEW TAB* 500 MG (TUMS) PO SCH (09:55)
[2018-05-22] MEDS: Omeprazole CAP* 20 MG PO SCH (09:55)
[2018-05-22] MEDS: Pregabalin CAP(*) 50 MG PO SCH ×2 (09:55→20:58)
[2018-05-22] MEDS: Cholecalciferol TAB* 400 UNIT PO SCH (09:55)
[2018-05-22] MEDS: Spironolactone TAB* 25 MG PO SCH (09:56)
[2018-05-22] MEDS: Famotidine TAB* 20 MG PO SCH (09:56)
[2018-05-22] MEDS: Calcium Polycarbophil TAB* 625 MG PO SCH ×2 (09:56→20:57)
[2018-05-22] MEDS: Torsemide TAB* 20 MG PO SCH (09:57)
[2018-05-22] MEDS: Simethicone TAB* 80 MG TAB.CHEW PO SCH ×3 (10:03→18:56)
[2018-05-22] MEDS: Acetaminophen TAB* 325 MG PO PRN ×2 (11:49→18:53)
--- NOTE | 2018-05-22 15:16 | PN ---
Subjective Date of Service: 05/22/18 Interval History: Pt seen and examined. Meds and labs reviewed. CC: Insomnia ROS: Denied HOOK/dizziness, F/C, N/V, CP, SOB, increased cough, sputum production , abd pain, diarrhea, constipation, dysuria, myalgias, arthralgias, throat pain , and new skin lesions. The rest of the 14 point ROS are unremarkable. PHYSICAL EXAM: GEN APPEARANCE: Awake, not in acute distress HEENT: NC/AT, PERRLA, moist oral mucosa, (-) throat erythema NECK: Soft, supple, (-) cervical LAD, (-)JVD HEART: S1S2 WNL, RRR, No MRG CHEST: CTA, BL, GAE, No W/R/R ABD: Soft, ND/NT, NABS 4x Q EXT: No C/C/BLLE edema 3+, tenderness resolved, erythema improved SKIN: Warm to touch PSYCH: No active psychosis, hallucinations, depression, SI/HI Objective Active Medications: Acetaminophen (Tylenol Tab*) 650 mg PO Q4H PRN PRN Reason: FEVER/PAIN Last Admin: 05/22/18 11:49 Dose: 650 mg Albuterol/Ipratropium (Duoneb (Albuterol 2.5 Mg/Ipratropium 0.5 Mg)) 1 neb INH RT.[id number] AWAKE PRN PRN Reason: sob/wheexing Albuterol/Ipratropium (Duoneb (Albuterol 2.5 Mg/Ipratropium 0.5 Mg)) 1 neb INH Q4H PRN PRN Reason: SHORTNESS OF BREATH Calcium Carbonate (Tums*) 500 mg PO DAILY [facility] Last Admin: 05/22/18 09:55 Dose: 500 mg Calcium Polycarbophil (Fibercon Tab*) 625 mg PO BID [facility] Last Admin: 05/22/18 09:56 Dose: 625 mg Cetirizine HCl (Zyrtec*) 10 mg PO QPM [facility]; Protocol Last Admin: 05/21/18 18:18 Dose: 10 mg Cholecalciferol (Vitamin D Tab*) 800 unit PO DAILY [facility] Last Admin: 05/22/18 09:55 Dose: 800 unit Cyclobenzaprine HCl (Flexeril Tab*) 5 mg PO BEDTIME PRN PRN Reason: SPASMS - MUSCLE Diltiazem HCl (Cardizem Tab*) 30 mg PO Q8H [facility] Last Admin: 05/22/18 13:14 Dose: 30 mg Docusate Sodium (Colace Cap*) 100 mg PO BID PRN PRN Reason: CONSTIPATION Famotidine (Pepcid Tab*) 20 mg PO QAM [facility]; Protocol Last Admin: 05/22/18 09:56 Dose: 20 mg Doxycycline Hyclate 100 mg/ (Sodium Chloride) 250 mls @ 250 mls/hr IVPB Q12H [facility] Last Admin: 05/22/18 05:10 Dose: 250 mls/hr Levalbuterol HCl (Xopenex Hfa Inhaler*) 2 puff INH QID PRN PRN Reason: SHORTNESS OF BREATH Levothyroxine Sodium (Synthroid Tab*) 12.5 mcg PO DAILY@0600 [facility] Last Admin: 05/22/18 05:09 Dose: 12.5 mcg Lidocaine (Lidoderm 5% Patch*) 1 patch TRANSDERM DAILY PRN PRN Reason: PAIN Lorazepam (Ativan Tab(*)) 0.5 mg PO BEDTIME PRN PRN Reason: SLEEP Mometasone Furoate/Formoterol Fumar (Dulera 200/5 Mdi*) 2 puff INH BID [facility]; Protocol Last Admin: 05/22/18 07:24 Dose: 2 puff Nitroglycerin (Nitroglycerin Tab 0.4 Mg*) 0.4 mg SL Q5M PRN PRN Reason: PAIN - CHEST Omeprazole (Prilosec Cap*) 20 mg PO DAILY [facility] Last Admin: 05/22/18 09:55 Dose: 20 mg Oxycodone HCl (Roxycodone Tab*) 5 mg PO Q6H PRN PRN Reason: PAIN Last Admin: 05/22/18 11:49 Dose: 5 mg Pharmacy Profile Note (Coumadin Per Pharmacy*) 0 note FOLLOW UP 1700 [facility] Last Admin: 05/21/18 16:32 Dose: 1 note Pregabalin (Lyrica Cap(*)) 50 mg PO BID [facility] Last Admin: 05/22/18 09:55 Dose: 50 mg Simethicone (Mylicon Tab*) 80 mg PO TID [facility] Last Admin: 05/22/18 13:12 Dose: 80 mg Spironolactone (Aldactone Tab*) 25 mg PO DAILY [facility] Last Admin: 05/22/18 09:56 Dose: 25 mg Tiotropium [place] (Spiriva Cap.Inh*) 1 cap INH DAILY [facility] Last Admin: 05/22/18 07:24 Dose: 1 cap Torsemide (Demadex*) 20 mg PO DAILY [facility] Last Admin: 05/22/18 09:57 Dose: 20 mg Trazodone HCl (Desyrel Tab*) 25 mg PO BEDTIME [facility] Warfarin Sodium (Coumadin Tab(*)) 3 mg PO 1700 [facility]; Protocol Last Admin: 05/21/18 16:31 Dose: 3 mg Vital Signs - 8 hr 05/22/18 05/22/18 05/22/18 07:25 07:59 09:55 Temperature 98.3 F Pulse Rate 60 56 Respiratory 14 16 18 Rate Blood Pressure 94/43 (mmHg) O2 Sat by Pulse 100 100 Oximetry 05/22/18 05/22/18 05/22/18 10:14 11:36 11:49 Temperature 98.0 F Pulse Rate 62 Respiratory 16 14 18 Rate Blood Pressure 105/48 (mmHg) O2 Sat by Pulse 100 Oximetry 05/22/18 05/22/18 14:05 14:06 Temperature Pulse Rate Respiratory 18 16 Rate Blood Pressure (mmHg) O2 Sat by Pulse Oximetry Oxygen Devices in Use Now: Nasal Cannula Result Diagrams: 05/22/18 05:42 05/22/18 05:42 Microbiology and Other Data: Microbiology 05/21/18 02:24 Urine Culture - Final Urine No Growth (<1,000 CFU/mL) EKG Data: ekg a fib at rate of [address] t change Assess/Plan/Problems-Billing Assessment: this is a 88 yr old wf lives alone with [facility] medical problems presented to er with increased sob/pedal edema for one week but getting worse for one day --- > bnp is 800s but her baseline around 500 hx of copd but only uses oxygen at night ---> jennifer napoles done result pending ua requested pt could only lift her lle to 10 degree for 10 sec etiology unclear - Patient Problems (1) CHF exacerbation Current Visit: Yes Status: Acute Code(s): I50.9 - HEART FAILURE, UNSPECIFIED SNOMED Code(s): 71430897 Comment: -Moderate exacerbation, resolved -Will change IV Lasix to PO Torsemide -Continue low sodium diet (2) Cellulitis Current Visit: Yes Status: Acute Code(s): L03.90 - CELLULITIS, UNSPECIFIED SNOMED Code(s): 604318543 Comment: -Improved -Continue IV Doxycycline -Awaiting results of cultures (3) Insomnia Current Visit: Yes Status: Acute Code(s): G47.00 - INSOMNIA, UNSPECIFIED SNOMED Code(s): 657294725 Comment: -Will place on low dose Trazodone (4) A-fib Current Visit: Yes Status: Acute Code(s): I48.91 - UNSPECIFIED ATRIAL FIBRILLATION SNOMED Code(s): 29712458 Comment: -Continue Coumadin -Continue Diltiazem (5) CKD (chronic kidney disease) Current Visit: Yes Status: Acute Code(s): N18.9 - CHRONIC KIDNEY DISEASE, UNSPECIFIED SNOMED Code(s): 983464442 Comment: -Stable -Continue watchful waiting (6) DVT prophylaxis Current Visit: Yes Status: Acute Code(s): UWY2263 - SNOMED Code(s): 125293314 Comment: -Continue Coumadin -Follow daily INRs Status and Disposition: -Appreciate PT eval---no identified needs -For D/C home when improved in 2 days
[2018-05-22] MEDS: Cetirizine* 10 MG TAB PO SCH (17:33)
[2018-05-22] MEDS: Warfarin TAB(*) 3 MG PO SCH (17:33)
[2018-05-22] MEDS: traZODone TAB* 50 MG TAB PO SCH (20:58)
[2018-05-22] MEDS ORDERED: Pantoprazole IV* 40 MG IV ONE (23:27)
[2018-05-23] MEDS ORDERED: LORazepam TAB(*) 0.5 MG PO PRN (00:09)
[2018-05-23] MEDS: DOXYcycline IV* 100 MG in NS 0.9% 250 ML* 250 ML IVPB SCH ×2 (03:23→16:15)
[2018-05-23] MEDS: LORazepam TAB(*) 0.5 MG PO PRN ×2 (03:23→22:02)
[2018-05-23] MEDS: Levothyroxine TAB* 25 MCG TAB PO SCH (06:14)
[2018-05-23] MEDS: Diltiazem TAB* 30 MG PO SCH ×3 (06:14→22:02)
[2018-05-23] MEDS: Tiotropium CAP.INH* CAP.INH/18 MCG (USE ORDER SET !) INH SCH (07:34)
[2018-05-23] MEDS: Mometasone/Formoter 200/5 MDI INH SCH ×2 (07:35→19:14)
[2018-05-23 09:24] LABS: INR 1.97 (0.77-1.02)
[2018-05-23] MEDS: oxyCODONE TAB* 5 MG TAB PO PRN ×3 (09:37→22:02)
[2018-05-23] MEDS: Cholecalciferol TAB* 400 UNIT PO SCH (09:40)
[2018-05-23] MEDS: Famotidine TAB* 20 MG PO SCH (09:40)
[2018-05-23] MEDS: Spironolactone TAB* 25 MG PO SCH (09:40)
[2018-05-23] MEDS: Torsemide TAB* 20 MG PO SCH (09:41)
[2018-05-23] MEDS: Acetaminophen TAB* 325 MG PO PRN ×3 (09:41→22:01)
[2018-05-23] MEDS: Calcium Carbonate CHEW TAB* 500 MG (TUMS) PO SCH (09:41)
[2018-05-23] MEDS: Simethicone TAB* 80 MG TAB.CHEW PO SCH ×3 (09:41→18:24)
[2018-05-23] MEDS: Calcium Polycarbophil TAB* 625 MG PO SCH ×2 (09:42→22:01)
[2018-05-23] MEDS: Pregabalin CAP(*) 50 MG PO SCH ×2 (09:42→22:01)
[2018-05-23] MEDS: Omeprazole CAP* 20 MG PO SCH (09:42)
--- NOTE | 2018-05-23 13:48 | PN ---
Subjective Date of Service: 05/23/18 Interval History: Pt seen and examined. Meds and labs reviewed. CC: Insomnia ROS: Denied HOOK/dizziness, F/C, N/V, CP, SOB, increased cough, sputum production , abd pain, diarrhea, constipation, dysuria, myalgias, arthralgias, throat pain , and new skin lesions. The rest of the 14 point ROS are unremarkable. PHYSICAL EXAM: GEN APPEARANCE: Awake, not in acute distress HEENT: NC/AT, PERRLA, moist oral mucosa, (-) throat erythema NECK: Soft, supple, (-) cervical LAD, (-)JVD HEART: S1S2 WNL, RRR, No MRG CHEST: CTA, BL, GAE, No W/R/R ABD: Soft, ND/NT, NABS 4x Q EXT: No C/C/BLLE edema 2+, tenderness resolved, erythema continues to improve SKIN: Warm to touch PSYCH: No active psychosis, hallucinations, depression, SI/HI Objective Active Medications: Acetaminophen (Tylenol Tab*) 650 mg PO Q4H PRN PRN Reason: FEVER/PAIN Last Admin: 05/23/18 09:41 Dose: 650 mg Albuterol/Ipratropium (Duoneb (Albuterol 2.5 Mg/Ipratropium 0.5 Mg)) 1 neb INH [id number] AWAKE PRN PRN Reason: sob/wheexing Albuterol/Ipratropium (Duoneb (Albuterol 2.5 Mg/Ipratropium 0.5 Mg)) 1 neb INH Q4H PRN PRN Reason: SHORTNESS OF BREATH Calcium Carbonate (Tums*) 500 mg PO DAILY [facility] Last Admin: 05/23/18 09:41 Dose: 500 mg Calcium Polycarbophil (Fibercon Tab*) 625 mg PO BID [facility] Last Admin: 05/23/18 09:42 Dose: 625 mg Cetirizine HCl (Zyrtec*) 10 mg PO QPM [facility]; Protocol Last Admin: 05/22/18 17:33 Dose: 10 mg Cholecalciferol (Vitamin D Tab*) 800 unit PO DAILY [facility] Last Admin: 05/23/18 09:40 Dose: 800 unit Cyclobenzaprine HCl (Flexeril Tab*) 5 mg PO BEDTIME PRN PRN Reason: SPASMS - MUSCLE Diltiazem HCl (Cardizem Tab*) 30 mg PO Q8H [facility] Last Admin: 05/23/18 13:30 Dose: Not Given Docusate Sodium (Colace Cap*) 100 mg PO BID PRN PRN Reason: CONSTIPATION Last Admin: 05/23/18 09:42 Dose: 100 mg Famotidine (Pepcid Tab*) 20 mg PO QAM [facility]; Protocol Last Admin: 05/23/18 09:40 Dose: 20 mg Doxycycline Hyclate 100 mg/ (Sodium Chloride) 250 mls @ 250 mls/hr IVPB Q12H [facility] Last Admin: 05/23/18 03:23 Dose: 250 mls/hr Levalbuterol HCl (Xopenex Hfa Inhaler*) 2 puff INH QID PRN PRN Reason: SHORTNESS OF BREATH Levothyroxine Sodium (Synthroid Tab*) 12.5 mcg PO DAILY@0600 [facility] Last Admin: 05/23/18 06:14 Dose: 12.5 mcg Lidocaine (Lidoderm 5% Patch*) 1 patch TRANSDERM DAILY PRN PRN Reason: PAIN Lorazepam (Ativan Tab(*)) 0.5 mg PO BEDTIME PRN PRN Reason: SLEEP Last Admin: 05/23/18 03:23 Dose: 0.5 mg Lorazepam (Ativan Tab(*)) 0.5 mg PO BEDTIME PRN PRN Reason: SLEEP Mometasone Furoate/Formoterol Fumar (Dulera 200/5 Mdi*) 2 puff INH BID [facility]; Protocol Last Admin: 05/23/18 07:35 Dose: 2 puff Nitroglycerin (Nitroglycerin Tab 0.4 Mg*) 0.4 mg SL Q5M PRN PRN Reason: PAIN - CHEST Omeprazole (Prilosec Cap*) 20 mg PO DAILY [facility] Last Admin: 05/23/18 09:42 Dose: 20 mg Oxycodone HCl (Roxycodone Tab*) 5 mg PO Q6H PRN PRN Reason: PAIN Last Admin: 05/23/18 09:37 Dose: 5 mg Pharmacy Profile Note (Coumadin Per Pharmacy*) 0 note FOLLOW UP 1700 [facility] Last Admin: 05/22/18 18:56 Dose: 1 note Pregabalin (Lyrica Cap(*)) 50 mg PO BID [facility] Last Admin: 05/23/18 09:42 Dose: 50 mg Simethicone (Mylicon Tab*) 80 mg PO TID PC [facility] Last Admin: 05/23/18 13:32 Dose: 80 mg Spironolactone (Aldactone Tab*) 25 mg PO DAILY [facility] Last Admin: 05/23/18 09:40 Dose: 25 mg Tiotropium [place] (Spiriva Cap.Inh*) 1 cap INH DAILY [facility] Last Admin: 05/23/18 07:34 Dose: 1 cap Torsemide (Demadex*) 20 mg PO DAILY [facility] Last Admin: 05/23/18 09:41 Dose: 20 mg Trazodone HCl (Desyrel Tab*) 25 mg PO BEDTIME [facility] Last Admin: 05/22/18 20:58 Dose: 25 mg Warfarin Sodium (Coumadin Tab(*)) 4 mg PO 1700 [facility]; Protocol Vital Signs - 8 hr 05/23/18 05/23/18 05/23/18 07:36 08:07 08:58 Temperature 97.6 F Pulse Rate 77 73 Respiratory 20 16 Rate Blood Pressure 106/58 88/54 (mmHg) O2 Sat by Pulse 99 100 Oximetry 05/23/18 05/23/18 05/23/18 09:37 09:42 11:26 Temperature 98.0 F Pulse Rate 62 Respiratory 18 18 16 Rate Blood Pressure 92/42 (mmHg) O2 Sat by Pulse 95 Oximetry 05/23/18 13:33 Temperature Pulse Rate Respiratory 14 Rate Blood Pressure (mmHg) O2 Sat by Pulse Oximetry Oxygen Devices in Use Now: Nasal Cannula Result Diagrams: 05/22/18 05:42 05/22/18 05:42 Microbiology and Other Data: Microbiology 05/21/18 02:24 Urine Culture - Final Urine No Growth (<1,000 CFU/mL) EKG Data: ekg a fib at rate of [address] t change Assess/Plan/Problems-Billing Assessment: this is a 88 yr old wf lives alone with mulitple medical problems presented to er with increased sob/pedal edema for one week but getting worse for one day --- > bnp is 800s but her baseline around 500 hx of copd but only uses oxygen at night ---> jennifer napoles done result pending ua requested pt could only lift her lle to 10 degree for 10 sec etiology unclear - Patient Problems (1) CHF exacerbation Current Visit: Yes Status: Acute Code(s): I50.9 - HEART FAILURE, UNSPECIFIED SNOMED Code(s): 24270972 Comment: -Moderate exacerbation, resolved -Continue PO Torsemide -Continue low sodium diet -Pt has done well with sats of 96% on ambulation today (2) Cellulitis Current Visit: Yes Status: Acute Code(s): L03.90 - CELLULITIS, UNSPECIFIED SNOMED Code(s): 385671325 Comment: -Improved -Continue IV Doxycycline day #08/22 -Blood cultures (-) x 1 day (3) Insomnia Current Visit: Yes Status: Acute Code(s): G47.00 - INSOMNIA, UNSPECIFIED SNOMED Code(s): 074623015 Comment: -Continue low dose Trazodone (4) A-fib Current Visit: Yes Status: Acute Code(s): I48.91 - UNSPECIFIED ATRIAL FIBRILLATION SNOMED Code(s): 74616975 Comment: -Given INR has been decreasing everyday and now mildly subtherapeutic, will increase Coumadin to 4 mg/day -Continue Diltiazem (5) CKD (chronic kidney disease) Current Visit: Yes Status: Acute Code(s): N18.9 - CHRONIC KIDNEY DISEASE, UNSPECIFIED SNOMED Code(s): 334770010 Comment: -Stable -Continue watchful waiting (6) DVT prophylaxis Current Visit: Yes Status: Acute Code(s): HYJ4868 - SNOMED Code(s): 538812663 Comment: -Continue Coumadin -Follow daily INRs Status and Disposition: -Appreciate PT eval---no identified needs -Will continue to review cultures in AM and if continues to clinically improve, for D/C home in AM
[2018-05-23] MEDS ORDERED: Polyethylene Glycol 3350* 17 GM PACKET PO PRN (14:10)
[2018-05-23] MEDS ORDERED: Warfarin TAB(*) 4 MG PO SCH (17:00)
[2018-05-23] MEDS: Cetirizine* 10 MG TAB PO SCH (18:24)
[2018-05-23] MEDS: traZODone TAB* 50 MG TAB PO SCH (22:03)
[2018-05-24] MEDS: Ondansetron INJ* 2 MG/ML VIAL IV PRN ×2 (02:47→09:09)
[2018-05-24] MEDS: DOXYcycline IV* 100 MG in NS 0.9% 250 ML* 250 ML IVPB SCH (04:41)
[2018-05-24] MEDS: Levothyroxine TAB* 25 MCG TAB PO SCH (06:17)
[2018-05-24] MEDS: Diltiazem TAB* 30 MG PO SCH ×2 (06:18→13:57)
[2018-05-24 06:54] LABS: INR 2.64 (0.77-1.02)
[2018-05-24 06:55] LABS: ABS Basophils 0 10^3/ul (0-0.2); ABS Eosinophils 0.1 10^3/ul (0-0.6); ABS Lymphocytes 1.4 10^3/ul (1.0-4.8); ABS Monocytes 0.4 10^3/ul (0-0.8); ABS Neutrophils 2.8 10^3/ul (1.5-7.7); ABS Nucleated RBC 0 10^3/ul; Eosinophil % 1.1 % (0-6); Hematocrit 31 % (35-47); Hemoglobin 9.4 g/dl (12.0-16.0); Lymphocyte % 28.8 % (25-47); Mean Corpuscular HGB Conc 31 g/dl (31-36); Mean Corpuscular Hemoglobin 25 pg (27-31); Mean Corpuscular Volume 81 fL (80-97); Mean Platelet Volume 8.4 fL (7.4-10.4); Nucleated Red Blood Cells % 0.1; Platelet Count 120 10^3/ul (150-450); Red Blood Count 3.77 10^6/ul (4.00-5.40); Red Cell Distribution Width 22 % (10.5-15); White Blood Count 4.7 10^3/ul (3.5-10.8)
[2018-05-24 07:01] LABS: Albumin 2.7 g/dL (3.2-5.2); Albumin/Globulin Ratio 0.9 (1-3); BUN/Creatinine Ratio 29.6 (8-20); Calcium 8.5 mg/dL (8.6-10.3); EGFR Non-African American 30.6 (>60); Globulin 3.1 g/dL (2-4); Magnesium 1.8 mg/dL (1.9-2.7); Phosphorus 3.7 mg/dL (2.5-5.0); Potassium 4.8 mmol/L (3.5-5.0); Total Bilirubin 0.3 mg/dL (0.2-1.0); Total Protein 5.8 g/dL (6.4-8.9)
[2018-05-24 07:17] LABS: TSH (Thyroid Stimulating Horm) 6.21 mcIU/mL (0.34-5.60)
[2018-05-24 07:19] LABS: Free T4 0.87 ng/dL (0.61-1.12)
[2018-05-24] MEDS: Mometasone/Formoter 200/5 MDI INH SCH (07:50)
[2018-05-24] MEDS: Tiotropium CAP.INH* CAP.INH/18 MCG (USE ORDER SET !) INH SCH (07:50)
[2018-05-24] MEDS ORDERED: Magnesium Sulfate 2 GM IV* 2 GM/50 ML BAG IVPB ONE (08:25)
[2018-05-24] MEDS: Torsemide TAB* 20 MG PO SCH (08:54)
[2018-05-24] MEDS: Cholecalciferol TAB* 400 UNIT PO SCH (08:54)
[2018-05-24] MEDS: Calcium Polycarbophil TAB* 625 MG PO SCH (08:54)
[2018-05-24] MEDS: Spironolactone TAB* 25 MG PO SCH (08:54)
[2018-05-24] MEDS: Simethicone TAB* 80 MG TAB.CHEW PO SCH ×2 (08:55→13:11)
[2018-05-24] MEDS: Omeprazole CAP* 20 MG PO SCH (08:55)
[2018-05-24] MEDS: Famotidine TAB* 20 MG PO SCH (08:55)
[2018-05-24] MEDS: Calcium Carbonate CHEW TAB* 500 MG (TUMS) PO SCH (08:55)
[2018-05-24] MEDS: Pregabalin CAP(*) 50 MG PO SCH (08:55)
[2018-05-24] MEDS ORDERED: Senna TAB PO SCH (09:00)
[2018-05-24] MEDS ORDERED: Docusate CAP* 100 MG PO SCH (09:00)
[2018-05-24] MEDS: oxyCODONE TAB* 5 MG TAB PO PRN (09:11)
[2018-05-24 13:04] VITALS: BP 133/79
[2018-05-24] MEDS ORDERED: Warfarin TAB(*) 3 MG PO SCH (17:00)
--- NOTE | 2018-05-25 05:38 | DS ---
CC: Dr. Jessica Drew; Dr. Ariel Cornell; Dr. Jose Thompson * DISCHARGE SUMMARY: DATE OF ADMISSION: DATE OF DISCHARGE: 05/24/18 DISCHARGE DIAGNOSES: 1. Congestive heart failure exacerbation, moderate, resolved. 2. Bilateral lower extremity cellulitis, improved. 3. Insomnia, improved. DISCHARGE MEDICATIONS: 1. Albuterol/ipratropium nebulization, one nebulization inhalation q.4 hours p.r.n. 2. Symbicort 160/4.5 two puffs inhalation b.i.d. 3. Calcium carbonate 500 mg p.o. daily. 4. Calcium polycarbophil or FiberCon 625 mg p.o. b.i.d. 5. Cholecalciferol 800 mg p.o. daily. 6. Cyclobenzaprine 5 mg p.o. q.h.s. 7. Fexofenadine 180 mg p.o. daily. 8. Levalbuterol 2 puffs inhalation 4 times a day. 9. Levothyroxine 12.5 mcg p.o. daily. 10. Lidocaine patch 5% one patch transdermal daily. 11. Lorazepam 0.5 mg p.o. nightly. 12. Nitroglycerin 0.4 mg sublingual q.5 minutes p.r.n. 13. Omeprazole 20 mg p.o. daily. 14. Oxycodone 5 mg p.o. q.6 p.r.n. 10 tabs dispensed with 2 refills. The patient advised that if she needs more pain meds, to contact her PCP for refills. 15. Pregabalin 50 mg p.o. 4 times a day. 16. Ranitidine 150 mg p.o. q.a.m. 17. Simethicone 80 mg p.o. t.i.d. 18. Spironolactone 25 mg p.o. daily. 19. Tiotropium 1 cap inhalation of 18 mcg cap daily. 20. Torsemide 20 mg p.o. daily. 21. Trazodone 25 mg p.o. nightly. 22. Warfarin 3 mg p.o. nightly. 23. Doxycycline 100 mg p.o. b.i.d. for 7 more days. 24. Floranex 1 tab p.o. daily for 12 days. 25. Lubiprostone 25 mcg p.o. b.i.d. 26. Metoprolol succinate 25 mg p.o. daily. 27. Risedronate 35 mg p.o. q. weekly. 28. Sodium chloride nasal spray 50 mL p.r.n. 29. Zofran 8 mg p.o. q.6 p.r.n. HISTORY OF PRESENT ILLNESS/HOSPITAL COURSE: The patient is an 88-year-old lady with a history of CAD, status post cardiac catheterization in 2010 with proximal LAD stenosis of 50%, diastolic CHF and COPD, who was admitted for shortness of breath due to moderate CHF exacerbation. She was also found to have cellulitis, bilateral lower extremity edema that has improved with IV doxycycline, which she will continue for a total of 10 days, and she has 7 more days of antibiotic therapy after discharge. She also complained of insomnia during her hospitalization stay, which is improved with trazodone. Her diltiazem was discontinued given her bradycardia in the 40s, although asymptomatic. She is to continue, however, on her metoprolol as prescribed. She is on Coumadin 3 mg p.o. daily and she has been advised to continue on this. She had been advised to follow up and call her PCP within 3 days post discharge , and was advised that if her symptoms resume or develop new ones or feel unwell for any reason, to call her PCP first and if her PCP cannot entertain her due to scheduling issues alone to call [facility] if the issue is considered nonemergent. She had been advised that she is on too many pain medications and that it would make it harder for her to breathe whenever she has a CHF exacerbation. We have tried to cut back on many of her medications including her pain medications and in which case where she clearly needs it, we have increased the time interval in between each p.r.n. dosing. She was advised to cut back on these as prescribed and if needed ask her PCP to refer to her to pain clinic to further plan for options that may be less sedating. She was advised to hold her diltiazem and continue her metoprolol until she is reevaluated by her PCP as mentioned. Her diltiazem has been discontinued given her bradycardia sometimes in the 40s. She was advised to call my office regarding any questions, concerns or further clarifications regarding her discharge plans and/or prescriptions, and to take her medications as prescribed. REVIEW OF SYSTEMS: The patient denied any current headaches, dizziness, fevers or chills. She does complain of some nausea, and hence will be provided with Zofran 8 mg p.o. q.6 p.r.n. Denied any abdominal pain, diarrhea, constipation, pain and/or increased frequency in urination, myalgias or arthralgias, throat pain or new skin lesions. The rest of the 14-point review of systems is otherwise unremarkable. PHYSICAL EXAMINATION: Shows most recent vital signs of record with blood pressure 100/62, 58 beats per minute heart rate, 17 per minute respiratory rate , saturating at 100%. General Appearance: The patient is awake, alert and oriented x3, not in acute distress. HEENT: Normocephalic, atraumatic. PERRLA. Extraocular muscles intact. Negative for icterus. Moist oral mucosa. Negative throat erythema. Neck is soft, supple, with no cervical lymphadenopathy. No JVD. Heart: S1, S2 within normal limits. Regular rate and rhythm. No murmurs, rubs or gallops. Chest: Clear to auscultation bilaterally. Good air entry. No wheezes, rales or rhonchi. Abdomen: Soft, nondistended, nontender. Normoactive bowel sounds x4 quadrants. Extremities: No cyanosis or clubbing, with 1 to 2+ bilateral lower extremity edema. The degree of cellulitis has improved in both erythema and edema. Psychiatric: No active psychosis, depression, suicidal or homicidal ideation. Skin is warm to touch. TIME SPENT: The total time spent evaluating the patient, reviewing pertinent data and appropriate documentation is 15 minutes. [id number]/[facility] #: [id number] MTDD
== END 2018-05-24 14:30 | disposition home health service (06) | DRG 191 ==
LOC: ED 23:14 → MED 05-21 01:14 → OBSVTOIN 05-22 15:22
PROVIDERS: ADMIT Internal Medicine; ATTEND Student in an Organized Health Care Education/Training Program
DX: J44.9 Chronic obstructive pulmonary disease, unspecified (principal); L03.116 Cellulitis of left lower limb; L03.115 Cellulitis of right lower limb; I13.0 Hypertensive heart and chronic kidney disease with heart failure and stage 1 through stage 4 chronic kidney disease, or unspecified chronic kidney disease; Z99.81 Dependence on supplemental oxygen; G62.9 Polyneuropathy, unspecified; I48.91 Unspecified atrial fibrillation; N18.9 Chronic kidney disease, unspecified; G47.00 Insomnia, unspecified; I25.10 Atherosclerotic heart disease of native coronary artery without angina pectoris; G89.4 Chronic pain syndrome; R26.81 Unsteadiness on feet; Z87.891 Personal history of nicotine dependence; Z98.61 Coronary angioplasty status
CPT/HCPCS: 36415; 71045; 80048; 80053; 80061; 81003; 83605; 83735; 83880; 84100; 84439; 84443; 84484; 85025; 85027; 85610; 85730; 86140; 87040; 87086; 93005; 93970; 94640; 96374; 99284; A9270-GY; G0378; G8978-GP-CH; G8979-GP-CH; G8980-GP-CH; J1940; J2405; J3475

== ENCOUNTER 2018-07-16 23:59 | Inpatient (IN) | payer MEDICARE, BC ==
--- NOTE | 2018-07-17 00:29 | ED ---
Shortness of Breath - HPI Summary HPI Summary: This patient is an 88 year old F brought in by ambulance to [facility] with a chief complaint of progressively worsening SOB and dry cough with chest tightness since 1400. Reports lower extremity swelling. Denies headache, rhinorrhea, abdominal pain, urinary and GI symptoms. PMHx of COPD. Wears 2L of nasal cannula O2 at home. - History of Current Complaint Chief Complaint: EDShortnessOfBreath Time Seen by Provider: 07/17/18 00:25 Hx Obtained From: Patient Onset/Duration: Gradual Onset, Lasting Hours Timing: Constant Current Severity: Moderate Dyspnea At: Rest Associated Signs & Symptoms: Cough (Nonproductive), Chest Pain w/Cough - Allergy/Home Medications Allergies/Adverse Reactions: Allergies Allergy/AdvReac Type Severity Reaction Status Date / Time fentanyl Allergy Unknown Difficulty Verified 07/17/18 00:23 Breathing sulfamethoxazole AdvReac Intermediate Nausea Verified 07/17/18 00:23 [From Bactrim] trimethoprim [From Bactrim] AdvReac Intermediate Nausea Verified 07/17/18 00:23 ciprofloxacin AdvReac Hives Verified 07/17/18 00:23 codeine AdvReac Hives Verified 07/17/18 00:23 Penicillins AdvReac Hives Verified 07/17/18 00:23 Home Medications: Home Medications Docusate CAP* [Colace Cap*] 2 cap PO DAILY PRN 07/17/18 [History Confirmed 07/17] Oxymorphone HCl ER 15 mg PO BID PRN 07/17/18 [History Confirmed 07/17/18] Polyethylene Glycol 3350* [Miralax*] 17 gm PO DAILY PRN 07/17/18 [History Confirmed 07/17/18] Simethicone TAB* [Mylicon TAB*] 80 mg PO Q6HR PRN 07/17/18 [History Confirmed ] Torsemide TAB* [Demadex 20 MG*] 40 mg PO DAILY 07/17/18 [History Confirmed 07/17] Warfarin TAB(*) [Coumadin TAB(*)] 2.5 mg PO SEE INSTRUCTIONS 07/17/18 [History Confirmed 07/17/18] oxyCODONE TAB* [Roxycodone TAB 5 mg*] 20 mg PO Q4HR PRN 07/17/18 [History Confirmed 07/17/18] PMH/Surg Hx/FS Hx/Imm Hx Endocrine/Hematology History: Reports: Hx Anticoagulant Therapy - coumadin for a fib, Hx Blood Disorders - chronic thrombocytopenia, Hx Thyroid Disease - juwan, Hx Anemia - HX OF Denies: Hx Diabetes Cardiovascular History: Reports: Hx Angina, Hx Congestive Heart Failure, Hx Coronary Artery Disease, Hx Hypercholesterolemia, Hx Hypertension, Other Cardiovascular Problems/Disorders - AFIB Denies: Hx Aneurysm, Hx Auto Implanted Cardiovert Defib, Hx Cardiac Arrest, Hx Cardiomegaly, Hx Deep Vein Thrombosis, Hx Myocardial Infarction, Hx Pacemaker /ICD, Hx Valvular Heart Disease Respiratory History: Reports: Hx Asthma, Hx Chronic Obstructive Pulmonary Disease (COPD) - 2L O2 @ night, Hx Pneumonia - Hospitalized from 10/14/14 - and 04/26; 01/2017, Hx Seasonal Allergies, Other Respiratory Problems/ Disorders - BILAT PNEUMONIA 10/25. PT WITH TB 1994 Denies: Hx Lung Cancer - 2L O2 at night - on 4L continuous since pneumonia January 2017, Hx Pulmonary Embolism GI History: Reports: Hx Gall Bladder Disease - cholecystectomy 1976, Hx Gastroesophageal Reflux Disease - CONTROL WITH MED, Hx Ulcer, Other GI Disorders - partial gastrectomy 1972 Denies: Hx Gastrointestinal Bleed, Hx Urosepsis History: Reports: Other Problems/Disorders - hysterectomy breast biopsy left Denies: Hx Acute Renal Failure, Hx Benign Prostatic Hyperplasia, Hx Kidney Stones, Hx Renal Disease Musculoskeletal History: Reports: Hx Arthritis - BACK, KNEES, Hx Back Problems - laminectomy, Hx Orthopedic Injury - hx r arm, r ankle, toes, Other Musculoskeletal History - back surgery 1995 Sensory History: Reports: Hx Cataracts - removed, Hx Contacts or Glasses - reading glasses Denies: Hx Eye Injury, Hx Eye Prosthesis, Hx Glaucoma, Hx Macular Degeneration, Hx Deafness, Hx Hearing Aid, Hx Hearing Problem, Other Sensory Impairments Opthamlomology History: Reports: Hx Cataracts - removed, Hx Contacts or Glasses - reading glasses Denies: Hx Eye Injury, Hx Eye Prosthesis, Hx Glaucoma, Hx Macular Degeneration, Other Sensory Impairments Neurological History: Reports: Other Neuro Impairments/Disorders - PERIPHERAL NEUROPATHY BILAT Denies: Hx Dementia, Hx Developmental Delay, Hx Migraine, Hx Seizures, Hx Transient Ischemic Attacks (TIA) Psychiatric History: Reports: Hx Anxiety - CONTROL WITH MED, Hx Depression - CONTROL WITH MED Denies: Hx Panic Disorder, Hx Schizophrenia, Hx Bipolar Disorder, Hx Suicide Attempt, Hx of Violent Episodes Against Others - Cancer History Cancer Type, Location and Year: breast lumpectomy was benign Hx Chemotherapy: No Hx Radiation Therapy: No - Surgical History Surgery Procedure, Year, and Place: T&A A CHILD. groin abscess A CHILD. appendectomy, cholecystectomy, [facility]. hysterectomy partial, [facility]. thyroidectomy partial, [facility]. L breast and R lung biopsies, [facility]. 1995 laminectomy L4,5, [facility]. gastrectomy partial 1972 r/t hemmorhaging ulcer;. Carpal Tunnel Surgery Right Wrist by Dr. Chauhan in July 2015. BILAT CATARACTS, [facility]. right lymph node bx 1994, [facility]. left leg surgery- vein 2003 [facility]. Left Breast lumpectomy 1982, [facility] Hx Anesthesia Reactions: No - Immunization History Date of Tetanus Vaccine: 2013 Date of Influenza Vaccine: Fall 2012 Infectious Disease History: Yes Infectious Disease History: Reports: Hx Tuberculosis, History Other Infectious Disease - hx e-coli sepsis and pneumonia February 2017 Denies: Hx Clostridium Difficile, Hx Hepatitis, Hx Human Immunodeficiency Virus (HIV), Hx of Known/Suspected MRSA, Hx Known/Suspected VRE, Hx Known/ Suspected VRSA, Traveled Outside the [place] in Last 30 Days - Family History Known Family History: Positive: Cardiac Disease - father - CHF, brother - aneurysm Negative: Hypertension, Diabetes - Social History Alcohol Use: None Alcohol Amount: 2 drinks per week Hx Substance Use: No Substance Use Type: Reports: None Substance Use Comment - Amount & Last Used: oxycodone and oxymorphone Hx Tobacco Use: Yes Smoking Status (MU): Former Smoker Type: Cigarettes Amount Used/How Often: 2 packs per week Length of Time of Smoking/Using Tobacco: ON AND OFF 45 YRS Have You Smoked in the Last Year: No Review of Systems Negative: Nasal Discharge Positive: Chest Pain Positive: Shortness Of Breath, Cough Gastrointestinal: Negative Negative: Abdominal Pain Genitourinary: Negative Negative: Headache All Other Systems Reviewed And Are Negative: Yes Physical Exam - Summary Physical Exam Summary: Appearance: Well-appearing, Well-nourished, lying in bed comfortably Skin: Warm, dry, no obvious rash Eyes: sclera anicteric, no conjunctival pallor ENT: mucous membranes moist, pharynx appears normal Neck: Supple, nontender Respiratory: normal aeration, no wheezing, Clear to auscultation, no signs of respiratory distress Cardiovascular: Normal S1, S2. No murmurs. Normal distal pulses in tibial and radial bilaterally. Abdomen: Soft, nontender, normal active bowel sounds present Musculoskeletal: lpower extremities appear chronically edematous with chronic venous changes, Strength/ROM Intact Neurological: A&Ox3, awake and alert, mentation is normal, speech is fluent and appropriate Psychiatric: affect is normal, does not appear anxious or depressed Triage Information Reviewed: Yes Vital Signs On Initial Exam: Initial Vitals Temp Pulse Resp BP Pulse Ox 97.8 F 75 16 119/50 97 07/17/18 00:15 07/17/18 00:15 07/17/18 00:15 07/17/18 00:15 07/17/18 00:15 Vital Signs Reviewed: Yes Diagnostics - Vital Signs Vital Signs Temp Pulse Resp BP Pulse Ox 07/17/18 00:15 97.8 F 75 16 119/50 97 - Laboratory Result Diagrams: 07/17/18 06:20 07/17/18 06:20 Lab Statement: Any lab studies that have been ordered have been reviewed, and results considered in the medical decision making process. - Radiology CXR Radiology Interpretation Completed By: ED Physician Summary of Radiographic Findings: right lower lobe infiltrates and diffuse interstital changes in the right chest - EKG 0030 Cardiac Rate: NL - 76 BPM EKG Rhythm: Atrial Fibrillation Course/Dx - Course Course Of Treatment: 88 year old F brought in by ambulance to [facility] with a chief complaint of progressively worsening SOB and dry cough with chest tightness since 1400. Reports lower extremity swelling. Denies headache, rhinorrhea, abdominal pain, urinary and GI symptoms. PMHx of COPD. Case discussed with hospitalist, Dr. Perez, who agrees to admit. CXR indicative of PNA. EKG reveals A-fib. Bloodwork and D-Dimer obtained. - Diagnoses Provider Diagnoses: Acute renal failure, Hyperkalemia, CHF exacerbation, Pneumonia - Physician Notifications Discussed Care of Patient With: Danish Perez - hospitalist Time Discussed With Above Provider: 02:30 Instructed by Provider To: Admit As Inpatient Discharge - Sign-Out/Discharge Documenting (check all that apply): Patient Departure - admit - Discharge Plan Condition: Guarded Disposition: ADMITTED TO [facility] Disposition and Condition Condition: GUARDED Disposition: Admitted to [facility] - Attestation Statements Document Initiated by Susan: Yes Documenting Scribe: Kelsy Hood Provider For Whom Susan is Documenting (Include Credential): Richard Rico MD Scribe Attestation: IKelsy, scribed for Richard Rico MD on 07/17/18 at 1842. Scribe Documentation Reviewed: Yes Provider Attestation: The documentation as recorded by the Kelsy lynne accurately reflects the service I personally performed and the decisions made by meRichard MD Status of Scribe Document: Viewed
[2018-07-17 00:47] LABS: Hematocrit 28 % (35-47); Hemoglobin 8.6 g/dl (12.0-16.0); Mean Corpuscular HGB Conc 31 g/dl (31-36); Mean Corpuscular Hemoglobin 26 pg (27-31); Mean Corpuscular Volume 83 fL (80-97); Mean Platelet Volume 8.3 fL (7.4-10.4); Platelet Count 140 10^3/ul (150-450); Red Blood Count 3.33 10^6/ul (4.00-5.40); Red Cell Distribution Width 22 % (10.5-15); White Blood Count 3.7 10^3/ul (3.5-10.8)
[2018-07-17 01:05] LABS: Albumin 3.1 g/dL (3.2-5.2); BUN/Creatinine Ratio 27.8 (8-20); EGFR African American 15.7 (>60); Globulin 3.1 g/dL (2-4); Total Bilirubin 0.3 mg/dL (0.2-1.0); Total Protein 6.2 g/dL (6.4-8.9)
[2018-07-17 01:07] LABS: Potassium 5.7 mmol/L (3.5-5.0); Troponin I 0.01 ng/mL (<0.04)
[2018-07-17 01:09] LABS: INR 3.09 (0.77-1.02)
[2018-07-17 01:33] LABS: ABS Basophils 0.1 10^3/ul (0-0.2); ABS Eosinophils 0 10^3/ul (0-0.6); ABS Lymphocytes 0.8 10^3/ul (1.0-4.8); ABS Monocytes 0.3 10^3/ul (0-0.8); ABS Neutrophils 2.4 10^3/ul (1.5-7.7); ABS Nucleated RBC 0 10^3/ul; Eosinophil % 0.9 %; Lymphocyte % 21.3 %; Nucleated Red Blood Cells % 0.2
[2018-07-17] MEDS ORDERED: Polyethylene Glycol 3350* 17 GM PACKET PO PRN (06:11)
[2018-07-17] MEDS ORDERED: Docusate CAP* 100 MG PO PRN (06:11)
[2018-07-17] MEDS ORDERED: LORazepam TAB(*) 0.5 MG PO PRN (06:11)
[2018-07-17] MEDS ORDERED: Albuterol 2.5 MG/3 ML NEB.SOL* (0.083%) INH PRN (06:11)
[2018-07-17] MEDS ORDERED: Lidocaine PATCH 5%* 1 PATCH TRANSDERM PRN (06:11)
[2018-07-17] MEDS ORDERED: Nitroglycerin TAB 0.4 MG* 0.4 MG TAB SL PRN (06:16)
[2018-07-17] MEDS ORDERED: NS 0.9% 1000 ML* 1,000 ML IV SCH (06:30)
[2018-07-17 06:31] LABS: Hematocrit 26 % (35-47); Hemoglobin 8.2 g/dl (12.0-16.0); Mean Corpuscular HGB Conc 31 g/dl (31-36); Mean Corpuscular Hemoglobin 26 pg (27-31); Mean Corpuscular Volume 83 fL (80-97); Mean Platelet Volume 7.8 fL (7.4-10.4); Platelet Count 120 10^3/ul (150-450); Red Cell Distribution Width 22 % (10.5-15); White Blood Count 3.6 10^3/ul (3.5-10.8)
[2018-07-17 06:43] LABS: INR 3.31 (0.77-1.02)
[2018-07-17] MEDS ORDERED: cefTRIAXone(*) 1 GM ADVAN/BAG ONE (06:46)
[2018-07-17] MEDS: cefTRIAXone VIAL(*) 1,000 MG in NS 0.9% 50 ML* 50 ML IVPB SCH (06:49)
[2018-07-17] MEDS ORDERED: RISEDRONATE 35 MG PO SCH (07:00)
[2018-07-17 07:06] LABS: BUN/Creatinine Ratio 27.4 (8-20); EGFR African American 15.6 (>60); EGFR Non-African American 12.9 (>60); Potassium 5.4 mmol/L (3.5-5.0)
[2018-07-17 07:18] LABS: ABS Basophils 0 10^3/ul (0-0.2); ABS Eosinophils 0 10^3/ul (0-0.6); ABS Lymphocytes 1.5 10^3/ul (1.0-4.8); ABS Monocytes 0.3 10^3/ul (0-0.8); ABS Neutrophils 1.7 10^3/ul (1.5-7.7); ABS Nucleated RBC 0 10^3/ul; Eosinophil % 0.6 %; Lymphocyte % 41.5 %; Nucleated Red Blood Cells % 0.2
[2018-07-17] MEDS: Azithromycin IV(*) 500 MG in NS 0.9% 250 ML* 250 ML IVPB SCH (08:29)
[2018-07-17] MEDS: Calcium Polycarbophil TAB* 625 MG PO SCH ×2 (08:34→22:11)
[2018-07-17] MEDS: Cholecalciferol TAB* 400 UNIT PO SCH (08:34)
[2018-07-17] MEDS: Famotidine TAB* 20 MG PO SCH (08:35)
[2018-07-17] MEDS: Simethicone TAB* 80 MG TAB.CHEW PO SCH ×3 (08:35→17:39)
[2018-07-17] MEDS: Metoprolol Succinate XL TAB* 25 MG PO SCH (08:35)
[2018-07-17] MEDS: Omeprazole CAP (NF) 20 MG CAP.DR PO SCH (08:35)
[2018-07-17] MEDS ORDERED: OXYMORPHONE HCL 15 MG PO SCH (09:00)
[2018-07-17] MEDS ORDERED: Spiriva Inhaler DEVICE* 1 EACH DEVICE INH ONE (09:00)
[2018-07-17] MEDS ORDERED: NS 0.9% 1000 ML* 400 ML IV SCH (09:30)
[2018-07-17] MEDS: Tiotropium CAP.INH* CAP.INH/18 MCG (USE ORDER SET !) INH SCH (09:48)
[2018-07-17 10:11] LABS: TSH (Thyroid Stimulating Horm) 2.7 mcIU/mL (0.34-5.60)
[2018-07-17] MEDS ORDERED: Calcium Carbonate CHEW TAB* 500 MG (TUMS) PO SCH (11:00)
[2018-07-17] MEDS: Pregabalin CAP(*) 50 MG PO SCH ×4 (12:46→22:11)
[2018-07-17] MEDS: CMC:Lubiprostone 24 MCG CAP (NF) PO SCH ×2 (12:46→22:02)
--- NOTE | 2018-07-17 13:20 | HP ---
ADMISSION HISTORY AND PHYSICAL: PRIMARY CARE PROVIDER: Dr. Thompson. HEALTHCARE PROXY: Daughter. CODE STATUS: Full. SOURCE OF INFORMATION: History obtained from interview with the patient and review of past medical records. RELIABILITY: Good. CHIEF COMPLAINT: Chest pain as a band around her chest. HISTORY OF PRESENT ILLNESS: This is an 88-year-old female with past medical history of COPD, on home oxygen at nights and sometimes during the day as well as atrial fibrillation, on anticoagulation; diastolic heart failure, recently admitted in May, treated for suspected diastolic heart failure exacerbation , discharged on torsemide, improved and was feeling well until yesterday, approximately 2 p.m., developed acute onset of shortness of breath associated with a chest discomfort described as pain as a band radiating across her chest around through her back associated with lightheadedness as well as shortness of breath, described as she could not get enough air even with her oxygen on. She denies any nausea or vomiting, palpitations or loss of consciousness with this episode. She presented to the emergency room and the pain has resolved by the time she left the emergency room, although it is unclear how long it persisted. She denies any recent cough, rhinorrhea, sore throat, sick contacts, or fevers. She has had no symptoms including dysuria, frequency, or hesitancy. She has had no change in her appetite. She drinks approximately 50 ounces of water per day that she measures. No diarrhea. Her last bowel movement was yesterday. She has minimal exertion at baseline, difficulty sitting in her house, possibly walking out to her car which is not significant a distance. Was seen by this author. Her discomfort had largely resolved, although she still requiring 3 L of oxygen. Of note, the patient was discharged on 20 mg torsemide in May and her admission list today does indicate that she takes 40 mg daily, unclear at what time the torsemide was increased to 40 from 20 daily. PAST MEDICAL HISTORY: Includes COPD, on home oxygen 2 L p.r.n. during the day; anxiety; atrial fibrillation, on anticoagulation; diastolic heart failure based on most previous echo; hypertension; chronic pedal edema for approximately 3 months; hypothyroidism; history of appendectomy; cholecystectomy; hysterectomy; and partial thyroidectomy. MEDICATIONS: Home medications reviewed and include: 1. Oxymorphone 15 mg twice daily as needed. 2. Ipratropium every 4 hours as needed. 3. Oxycodone 20 mg every 4 hours as needed. 4. Docusate 100 mg daily as needed. 5. MiraLAX 17 g daily as needed. 6. Simethicone 80 mg 3 times a day. 7. DuoNebs every 4 hours as needed. 8. Cholecalciferol 800 units daily. 9. Calcium polycarbophil 625 mg twice daily. 10. Calcium carbonate 1 chew daily. 11. Fexofenadine 180 mg daily. 12. Flexeril 5 mg at bedtime as needed. 13. Levothyroxine 12.5 mcg daily. 14. Levalbuterol HFA 1 puff 4 times a day as needed. 15. Lorazepam 0.5 mg twice daily. 16. Floranex 1 chew tab daily. 17. Lubiprostone 24 mcg twice daily. 18. Lidocaine patch daily as needed. 19. Omeprazole 20 mg daily. 20. Nitroglycerine sublingual 0.4 mg every 5 minutes as needed up to 3. 21. Metoprolol succinate 25 mg daily. 22. Actonel 25 mg weekly. 23. Ranitidine 150 mg in morning. 24. Lyrica 50 mg 4 times a day. 25. Torsemide 40 mg daily. 26. Spiriva 1 cap inhaled daily. 27. Spironolactone 25 mg daily. 28. Coumadin 2.5 mg in the evening. 29. Trazodone 25 mg daily. ALLERGIES: Reviewed from the computer include FENTANYL, SULFAMETHOXAZOLE, TRIMETHOPRIM, CIPROFLOXACIN, CODEINE, AND PENICILLIN. FAMILY HISTORY: Father with CHF. Mother with CAD, at 57. 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 REVIEW OF SYSTEMS: Per HPI, otherwise also includes left leg pain, increased oxygen requirement, otherwise all other systems negative. PHYSICAL EXAMINATION GENERAL: Sitting up in bed, elderly, appears apparent age. VITAL SIGNS: 106/62, heart rate 72, respiratory rate ranged between 16 and 17, she is 98% on 2 L, T-max in the hospital is 97.8. HEENT: Oropharynx is clear. Moist mucous membranes. Sclerae are anicteric. NECK: She has non-elevated JVP, however, sitting up [id number] degrees. No cervical or supraclavicular lymphadenopathy. LUNGS: Have rales bilaterally, most prominent bilateral bases of approximately one- third to the apex. HEART: She has an irregularly irregular heart rate, irregular rhythm. ABDOMEN: Slightly distended, soft, nontender, positive bowel sounds. EXTREMITIES: Warm and well perfused. 2+ radial pulses. She has 1 to 2+ lower extremity pitting edema to the knee. She has bilateral symmetric erythema from approximately 3 inches above the ankle to 6 inches below the knee with some skin break down in left pretibial region. NEUROLOGIC: She is alert and oriented. Her cranial nerves II through XII are intact. She has no apparent anxiety, agitation, or depression. LABORATORY DATA: Labs are reviewed notable for potassium 5.4, creatinine 3.36 , INR 2.3, hemoglobin 8.2, platelets 120. Urine is pending. Chest x-ray notable for suspected retrocardiac opacity on this author's interpretation. EKG: Atrial fibrillation, low voltage in limb leads. ASSESSMENT AND PLAN: This is an 88-year-old female with past medical history as outlined in the history of present illness on day of admission including diastolic heart failure, most recent admission in May for decompensation, presenting with sudden onset of chest pain, shortness of breath found with what is suspected to be a retrocardiac opacity representing the pneumonia. Hypoxic respiratory failure requiring increased oxygen persistently during the day, suspected in the setting of likely pneumonia. The patient was treated with ceftriaxone and azithromycin. We will continue both going forward. Additionally, checked her thoracic echocardiogram in the setting of increased shortness of breath as well as pain. The patient has not had troponin checked. We will check troponin at this time. Monitor on telemetry. Monitor for improvement, titrate oxygen. Acute kidney injury, unclear etiology except for although deferential at this time includes active inspection as well as in the setting of increased torsemide dose at unknown times since discharge in May. We will hold torsemide at this time. Check urinalysis and renal ultrasound. Has received fluid since admission. We will continue for additional liter, 100 mL normal saline for 1 more liter. Hyperkalemia in the setting of renal failure, trend, monitor on telemetry. Lower extremity edema, elevate, holding torsemide. Atrial fibrillation, continue Coumadin and metoprolol. Chronic pulmonary obstructive disease, continue all home medications. DVT prophylaxis, Coumadin. Code Status: Full. [id number]/[facility] #: [id number] MTDD
[2018-07-17] MEDS: Levothyroxine TAB* 25 MCG TAB PO SCH (13:23)
[2018-07-17] MEDS: Acetaminophen TAB* 325 MG PO PRN (13:24)
[2018-07-17] MEDS: Calcium Carbonate CHEW TAB* 500 MG (TUMS) PO SCH (13:24)
[2018-07-17] MEDS ORDERED: Warfarin TAB(*) 2.5 MG PO SCH (17:00)
[2018-07-17 17:49] LABS: Urine Appearance Cloudy; Urine Bilirubin Negative (Negative); Urine Blood Negative (Negative); Urine Color Yellow; Urine Glucose Negative (Negative); Urine Ketones Negative (Negative); Urine Nitrite Negative (Negative); Urine Protein Negative (Negative); Urine Urobilinogen Negative (Negative)
[2018-07-17] MEDS: Lidocaine Patch REMOVE* 1 NOTE MISC PATCH OFF SCH (22:10)
[2018-07-17] MEDS: traZODone TAB* 50 MG TAB PO SCH (22:10)
[2018-07-18] MEDS: Acetaminophen TAB* 325 MG PO PRN ×2 (04:21→17:59)
[2018-07-18] MEDS ORDERED: Polyethylene Glycol 3350* 17 GM PACKET PO PRN (05:54)
[2018-07-18] MEDS ORDERED: Simethicone TAB* 80 MG TAB.CHEW PO PRN (05:54)
[2018-07-18] MEDS: Levothyroxine TAB* 25 MCG TAB PO SCH (05:54)
[2018-07-18] MEDS: oxyCODONE TAB* 5 MG TAB PO PRN ×2 (05:55→23:30)
[2018-07-18 06:02] LABS: ABS Basophils 0.1 10^3/ul (0-0.2); ABS Eosinophils 0 10^3/ul (0-0.6); ABS Lymphocytes 1.5 10^3/ul (1.0-4.8); ABS Monocytes 0.4 10^3/ul (0-0.8); ABS Neutrophils 2.4 10^3/ul (1.5-7.7); ABS Nucleated RBC 0 10^3/ul; Eosinophil % 0.5 %; Hematocrit 27 % (35-47); Hemoglobin 8.4 g/dl (12.0-16.0); Lymphocyte % 34.1 %; Mean Corpuscular HGB Conc 31 g/dl (31-36); Mean Corpuscular Hemoglobin 26 pg (27-31); Mean Corpuscular Volume 82 fL (80-97); Mean Platelet Volume 8.5 fL (7.4-10.4); Nucleated Red Blood Cells % 0.1; Platelet Count 129 10^3/ul (150-450); Red Blood Count 3.23 10^6/ul (4.00-5.40); Red Cell Distribution Width 22 % (10.5-15); White Blood Count 4.3 10^3/ul (3.5-10.8)
[2018-07-18 06:06] LABS: INR 4.15 (0.77-1.02)
[2018-07-18 06:27] LABS: BUN/Creatinine Ratio 30.9 (8-20); Calcium 7.2 mg/dL (8.6-10.3); EGFR African American 18.7 (>60); EGFR Non-African American 15.4 (>60)
[2018-07-18] MEDS: cefTRIAXone VIAL(*) 1,000 MG in NS 0.9% 50 ML* 50 ML IVPB SCH (06:53)
[2018-07-18] MEDS: Azithromycin IV(*) 500 MG in NS 0.9% 250 ML* 250 ML IVPB SCH (07:38)
[2018-07-18] MEDS: Tiotropium CAP.INH* CAP.INH/18 MCG (USE ORDER SET !) INH SCH (07:56)
[2018-07-18] MEDS: Simethicone TAB* 80 MG TAB.CHEW PO SCH ×3 (08:47→17:18)
[2018-07-18] MEDS: Metoprolol Succinate XL TAB* 25 MG PO SCH (08:47)
[2018-07-18] MEDS: Pregabalin CAP(*) 50 MG PO SCH ×4 (08:47→20:56)
[2018-07-18] MEDS: Famotidine TAB* 20 MG PO SCH (08:47)
[2018-07-18] MEDS: Omeprazole CAP (NF) 20 MG CAP.DR PO SCH (08:47)
[2018-07-18] MEDS: Calcium Polycarbophil TAB* 625 MG PO SCH ×2 (08:48→20:56)
[2018-07-18] MEDS: Cholecalciferol TAB* 400 UNIT PO SCH (08:48)
[2018-07-18] MEDS: Calcium Carbonate CHEW TAB* 500 MG (TUMS) PO SCH (08:48)
[2018-07-18] MEDS: Docusate CAP* 100 MG PO PRN (08:48)
[2018-07-18] MEDS: CMC:Lubiprostone 24 MCG CAP (NF) PO SCH ×2 (08:48→20:56)
[2018-07-18] MEDS ORDERED: NS 0.9% 1000 ML* 1,000 ML IV SCH (11:00)
--- NOTE | 2018-07-18 14:20 | ECHO ---
Patient: JOHN PAUL LAURENT [facility] Rec#: [id number] : 1930 Date: 07/18/2018 Age: 88y Height: 163 cm / 64.2 in Weight: 66.2 kg / 145.9 lbs Sex: F BSA: 1.71 Room#: [facility] Admit Date#: 07/17/2018 Type: Inpatient Referring: Jake Horowitz MD Reading: Rama Jaramillo MD Head Of It: Evi Frost RDCS CC: Jose Thompson MD Transthoracic Echocardiogram Indication: Chest pain BP: 112/43 HR: 82 Rhythm: A-Fib Findings History: A-fib, HTN, CAD, CHF, hypothyroidism, COPD, former smoker. Technical Comments: The study quality is fair. Completed at 1210. Left Ventricle: The left ventricular chamber size is normal. There is no left ventricular hypertrophy. Left ventricular systolic function is at the lower limits of normal. The estimated ejection fraction is 50-55%. There is septal flattening of the interventricular septum consistent with right ventricular volume or pressure overload. The assessment of diastolic function is non-diagnostic. The left ventricular diastolic filling pattern is consistent with elevated left ventricular end-diastolic pressure. Left Atrium: The left atrium is severely dilated. Right Ventricle: Moderator Band present. The right ventricle is moderately dilated. The right ventricular global systolic function is moderately reduced. Right Atrium: The right atrial cavity size is severely dilated. A prominent chiari network is noted in the right atrium. Aortic Valve: The aortic valve is trileaflet. The aortic valve leaflets are moderately thickened. There is a trace of aortic regurgitation. There is no evidence of aortic stenosis. Mitral Valve: There is mitral annular calcification. The mitral valve leaflets are mildly thickened. There is mild to moderate mitral regurgitation. The mitral regurgitant jet is posteriorly directed. The mitral regurgitant jet is laterally directed. There is borderline mitral stenosis. Tricuspid Valve: The tricuspid valve leaflets are mildly thickened. There is moderate tricuspid regurgitation. The right ventricular systolic pressure is estimated at 53 mmHg. There is evidence of moderate pulmonary hypertension. There is no tricuspid stenosis. Pulmonic Valve: The pulmonic valve appears normal. There is a trace pulmonic regurgitation. There is no pulmonic stenosis. Pericardium: There is no significant pericardial effusion. Aorta: There is no dilatation of the ascending aorta. There is no dilatation of the aortic arch. The aortic root is normal in size. Pulmonary Artery: The main pulmonary artery is not well visualized. Venous: The inferior vena cava is dilated. There is less than 50% respiratory change in the inferior vena cava dimension. Conclusions The left ventricular chamber size is normal. Left ventricular systolic function is at the lower limits of normal. The estimated ejection fraction is 50-55%. The left ventricular diastolic filling pattern is consistent with elevated left ventricular end-diastolic pressure. The right ventricle is moderately dilated and systolic function is moderately reduced. Both atria severely dilated. There is AV sclerosis with trace aortic regurgitation. There is mitral annular calcification. There is mild to moderate mitral regurgitation. There is moderate tricuspid regurgitation. There is evidence of moderate pulmonary hypertension estimated at 53 mmHg. Compred with prior study of 07/17/16, EF previously 60-65%, LVH no longer noted, RV dilatation and hypokinesis are new, MR previously mild/mod, TR previously moderate/severe, PA pressure previously 49 mmHg. Measurements Name Value Normal Range RVIDd (AP) 2D 4.4 cm (0.9 - 2.6) RVDdMajor (2D) 5.1 cm (2.2 - 4.4) RAd ISD 4CH 7.2 cm (3.4 - 4.9) RA (A4C)W 6.4 cm (2.9 - 4.6) IVSd (2D) 0.9 cm (0.6 - 1) LVPWd (2D) 0.9 cm (0.6 - 1) LVIDd (2D) 4.4 cm (3.6 - 5.4) LVIDs (2D) 2.9 cm - LV FS (2D) 33 % (25 - 45) Aortic Annulus 1.9 cm (1.4 - 2.6) Ao root diameter (2D) 3.2 cm (2.1 - 3.5) Ascending Ao 3.2 cm (2.1 - 3.4) Aortic arch 2.4 cm (1.8 - 3.4) LA dimension (AP) 2D 4.9 cm (2.3 - 3.8) LAd ISD 4CH 6.9 cm (2.9 - 5.3) LA ISD 4CH W 5.1 cm (2.5 - 4.5) Name Value Normal Range LA ESV BP (A/L) index 68 ml/m2 - Name Value Normal Range MV E-wave Vmax 1.2 m/sec - MV deceleration time 196 msec - LV septal e' Vmax 0.07 m/sec - LV lateral e' Vmax 0.07 m/sec - LV E:e' septal ratio 17.1 ratio - LV E:e' lateral ratio 17.1 ratio - Name Value Normal Range AV Vmax 1.5 m/sec - AV VTI 31.7 cm - AV peak gradient 9 mmHg - AV mean gradient 4 mmHg - LVOT diameter 2 cm - LVOT Vmax 0.8 m/sec - LVOT VTI 18 cm - LVOT peak gradient 3 mmHg - LVOT mean gradient 1 mmHg - PAYAM Vmax 0.6 m/sec - Name Value Normal Range MR Vmax 4.3 m/sec - MR VTI 141 cm - MR flow (PISA) 38 ml/sec - MR ERO 0.09 cm2 - MR PISA radius 0.4 cm - MR alias Vmax 37.6 cm/sec - Name Value Normal Range TR Vmax 3.1 m/sec - TR peak gradient 38 mmHg - RAP 15 mmHg - RVSP 53 mmHg - IVC diameter 2.4 cm - Name Value Normal Range PV Vmax 0.9 m/sec - PV peak gradient 3 mmHg -
--- NOTE | 2018-07-18 18:15 | PN ---
Subjective Date of Service: 07/18/18 Interval History: Feels weaker today no improvement in breathing no cough, CP Objective Active Medications: Acetaminophen (Tylenol Tab*) 650 mg PO Q4H PRN PRN Reason: FEVER/HEADACHE Last Admin: 07/18/18 17:59 Dose: 650 mg Albuterol (Ventolin 2.5 Mg/3 Ml Neb.Stacie*) 2.5 mg INH [id number] AWAKE PRN PRN Reason: SOB/WHEEZING Last Admin: 07/18/18 04:46 Dose: 2.5 mg Albuterol/Ipratropium (Duoneb (Albuterol 2.5 Mg/Ipratropium 0.5 Mg)) 1 neb INH Q4H PRN PRN Reason: SHORTNESS OF BREATH Calcium Carbonate (Tums*) 500 mg PO DAILY REPLACED BY [facility] Last Admin: 07/18/18 08:48 Dose: 500 mg Calcium Polycarbophil (Fibercon Tab*) 625 mg PO BID REPLACED BY [facility] Last Admin: 07/18/18 08:48 Dose: 625 mg Cholecalciferol (Vitamin D Tab*) 800 unit PO DAILY REPLACED BY [facility] Last Admin: 07/18/18 08:48 Dose: 800 unit Docusate Sodium (Colace Cap*) 200 mg PO DAILY PRN PRN Reason: CONSTIPATION Last Admin: 07/18/18 08:48 Dose: 200 mg Famotidine (Pepcid Tab*) 20 mg PO QAM REPLACED BY [facility]; Protocol Last Admin: 07/18/18 08:47 Dose: 20 mg Ceftriaxone Sodium 1,000 mg/ (Sodium Chloride) 50 mls @ 200 mls/hr IVPB Q24H REPLACED BY [facility] Last Admin: 07/18/18 06:53 Dose: 200 mls/hr Azithromycin 500 mg/ Sodium (Chloride) 250 mls @ 250 mls/hr IVPB Q24H REPLACED BY [facility] Last Admin: 07/18/18 07:38 Dose: 250 mls/hr Sodium Chloride (Ns 0.9% 1000 Ml*) 400 mls @ 100 mls/hr IV .FOR 4 HOURS REPLACED BY [facility] Last Admin: 07/17/18 12:47 Dose: Not Given Sodium Chloride (Ns 0.9% 1000 Ml*) 1,000 mls @ 100 mls/hr IV PER RATE REPLACED BY [facility] Stop: 07/18/18 20:59 Last Admin: 07/18/18 11:16 Dose: 100 mls/hr Levothyroxine Sodium (Synthroid Tab*) 12.5 mcg PO DAILY@0600 REPLACED BY [facility] Last Admin: 07/18/18 05:54 Dose: 12.5 mcg Lidocaine (Lidoderm 5% Patch*) 1 patch TRANSDERM DAILY PRN PRN Reason: PAIN Last Admin: 07/18/18 04:22 Dose: 1 patch Lubiprostone (Amitiza (Nf)) 24 mcg PO BID REPLACED BY [facility] Last Admin: 07/18/18 08:48 Dose: Not Given Metoprolol Succinate (Toprol Xl Tab*) 25 mg PO DAILY REPLACED BY [facility] Last Admin: 07/18/18 08:47 Dose: 25 mg Omeprazole (Prilosec Cap*) 20 mg PO DAILY REPLACED BY [facility] Last Admin: 07/18/18 08:47 Dose: 20 mg Oxycodone HCl (Roxycodone Tab*) 20 mg PO Q4HR PRN PRN Reason: PAIN Last Admin: 07/18/18 05:55 Dose: 20 mg Pharmacy Profile Note (Lidocaine Patch Remove*) 1 note PATCH OFF DAILY@2100 REPLACED BY [facility] Last Admin: 07/17/18 22:10 Dose: Not Given Polyethylene Glycol/Electrolytes (Miralax*) 17 gm PO DAILY PRN PRN Reason: CONSTIPATION Pregabalin (Lyrica Cap(*)) 50 mg PO QID REPLACED BY [facility] Last Admin: 07/18/18 15:55 Dose: 50 mg Simethicone (Mylicon Tab*) 80 mg PO TID [facility] Last Admin: 07/18/18 17:18 Dose: 80 mg Sodium Chloride (Sodium Chloride 0.65% Nasal [place]*) 1 spray BOTH NARES DAILY PRN PRN Reason: dry nose Tiotropium [place] (Spiriva Cap.Inh*) 1 cap INH DAILY REPLACED BY [facility] Last Admin: 07/18/18 07:56 Dose: 1 cap Trazodone HCl (Desyrel Tab*) 25 mg PO BEDTIME REPLACED BY [facility] Last Admin: 07/17/18 22:10 Dose: 25 mg Vital Signs - 8 hr 07/18/18 07/18/18 07/18/18 11:50 12:10 12:45 Temperature 97.1 F Pulse Rate 72 Respiratory 18 16 18 Rate Blood Pressure 96/45 (mmHg) O2 Sat by Pulse 100 Oximetry 07/18/18 07/18/18 07/18/18 15:05 15:38 15:55 Temperature 97.5 F Pulse Rate 57 Respiratory 18 16 16 Rate Blood Pressure 97/37 (mmHg) O2 Sat by Pulse 98 Oximetry 07/18/18 17:59 Temperature Pulse Rate Respiratory 18 Rate Blood Pressure (mmHg) O2 Sat by Pulse Oximetry Oxygen Devices in Use Now: Nasal Cannula Appearance: stated age, NAD, lying flat Eyes: No Scleral Icterus Ears/Nose/Mouth/Throat: NL Teeth, Lips, Gums, Clear Oropharnyx Neck: NL Appearance and Movements; NL JVP, Trachea Midline Respiratory: Symmetrical Chest Expansion and Respiratory Effort, - - rales right base Cardiovascular: RRR Abdominal: NL Sounds; No Tenderness; No Distention, No Hepatosplenomegaly Lymphatic: No Cervical Adenopathy Neurological: Alert and Oriented x 3 Result Diagrams: 07/18/18 05:43 07/18/18 05:43 Assess/Plan/Problems-Billing Assessment: 88 yo F h/o dchf, COPD, afib pw chest pain found with suspected PNA - Patient Problems (1) Pneumonia Comment: CTX and azithro prednisone Incentive spirometry (2) Acute kidney injury Comment: suspect pre renal improving with fluid c/w IVF 1 l today (3) Supratherapeutic INR Comment: hold coumadin (4) A-fib Comment: holding coumadin cw metoprolol (5) Chronic obstructive pulmonary disease (COPD) Comment: PO steroids although I suspect PNA is grester contribution to presentation (6) DVT prophylaxis Comment: inr elevated. hold coumadin
[2018-07-18] MEDS: traZODone TAB* 50 MG TAB PO SCH (20:55)
[2018-07-18] MEDS: Lidocaine Patch REMOVE* 1 NOTE MISC PATCH OFF SCH (21:01)
[2018-07-19] MEDS: cefTRIAXone VIAL(*) 1,000 MG in NS 0.9% 50 ML* 50 ML IVPB SCH (05:28)
[2018-07-19] MEDS: Levothyroxine TAB* 25 MCG TAB PO SCH (05:51)
[2018-07-19] MEDS: Azithromycin IV(*) 500 MG in NS 0.9% 250 ML* 250 ML IVPB SCH (05:51)
[2018-07-19 06:41] LABS: ABS Basophils 0.1 10^3/ul (0-0.2); ABS Eosinophils 0.1 10^3/ul (0-0.6); ABS Lymphocytes 1.5 10^3/ul (1.0-4.8); ABS Monocytes 0.5 10^3/ul (0-0.8); ABS Nucleated RBC 0 10^3/ul; Eosinophil % 1.4 %; Hematocrit 28 % (35-47); Hemoglobin 8.8 g/dl (12.0-16.0); Lymphocyte % 36.8 %; Mean Corpuscular HGB Conc 31 g/dl (31-36); Mean Corpuscular Hemoglobin 26 pg (27-31); Mean Corpuscular Volume 83 fL (80-97); Mean Platelet Volume 8.3 fL (7.4-10.4); Nucleated Red Blood Cells % 0.2; Platelet Count 116 10^3/ul (150-450); Red Blood Count 3.44 10^6/ul (4.00-5.40); Red Cell Distribution Width 22 % (10.5-15); White Blood Count 4.2 10^3/ul (3.5-10.8)
[2018-07-19 06:50] LABS: INR 3.77 (0.77-1.02)
[2018-07-19 06:56] LABS: Calcium 7.7 mg/dL (8.6-10.3); EGFR African American 21.3 (>60); EGFR Non-African American 17.6 (>60)
[2018-07-19 07:04] LABS: Potassium 5.1 mmol/L (3.5-5.0)
[2018-07-19] MEDS ORDERED: NS 0.9% 1000 ML* 1,000 ML IV SCH ×2 (07:45)
[2018-07-19] MEDS: oxyCODONE TAB* 5 MG TAB PO PRN ×2 (07:52→22:32)
[2018-07-19] MEDS: CMC:Lubiprostone 24 MCG CAP (NF) PO SCH ×2 (08:24→21:21)
[2018-07-19] MEDS: Cholecalciferol TAB* 400 UNIT PO SCH (08:25)
[2018-07-19] MEDS: Calcium Carbonate CHEW TAB* 500 MG (TUMS) PO SCH (08:25)
[2018-07-19] MEDS: Simethicone TAB* 80 MG TAB.CHEW PO SCH ×3 (08:25→16:39)
[2018-07-19] MEDS: Famotidine TAB* 20 MG PO SCH (08:25)
[2018-07-19] MEDS: Calcium Polycarbophil TAB* 625 MG PO SCH ×2 (08:25→21:20)
[2018-07-19] MEDS: Metoprolol Succinate XL TAB* 25 MG PO SCH (08:25)
[2018-07-19] MEDS: Omeprazole CAP (NF) 20 MG CAP.DR PO SCH (08:25)
[2018-07-19] MEDS: Pregabalin CAP(*) 50 MG PO SCH ×4 (08:25→21:20)
[2018-07-19] MEDS: Tiotropium CAP.INH* CAP.INH/18 MCG (USE ORDER SET !) INH SCH (08:46)
--- NOTE | 2018-07-19 15:37 | PN ---
Subjective Date of Service: 07/19/18 Interval History: Feels "better" but continues to report SOb described as she can't keep up with her breath Feels weak Unknown last BM Objective Active Medications: Acetaminophen (Tylenol Tab*) 650 mg PO Q4H PRN PRN Reason: FEVER/HEADACHE Last Admin: 07/18/18 17:59 Dose: 650 mg Albuterol (Ventolin 2.5 Mg/3 Ml Neb.Stacie*) 2.5 mg INH [id number] AWAKE PRN PRN Reason: SOB/WHEEZING Last Admin: 07/18/18 04:46 Dose: 2.5 mg Albuterol/Ipratropium (Duoneb (Albuterol 2.5 Mg/Ipratropium 0.5 Mg)) 1 neb INH Q4H PRN PRN Reason: SHORTNESS OF BREATH Azithromycin (Zithromax Tab*) 250 mg PO DAILY [facility] Stop: 07/20/18 09:01 Calcium Carbonate (Tums*) 500 mg PO DAILY [facility] Last Admin: 07/19/18 08:25 Dose: 500 mg Calcium Polycarbophil (Fibercon Tab*) 625 mg PO BID [facility] Last Admin: 07/19/18 08:25 Dose: 625 mg Cholecalciferol (Vitamin D Tab*) 800 unit PO DAILY [facility] Last Admin: 07/19/18 08:25 Dose: 800 unit Docusate Sodium (Colace Cap*) 200 mg PO DAILY PRN PRN Reason: CONSTIPATION Last Admin: 07/18/18 08:48 Dose: 200 mg Famotidine (Pepcid Tab*) 20 mg PO QAM [facility]; Protocol Last Admin: 07/19/18 08:25 Dose: 20 mg Ceftriaxone Sodium 1,000 mg/ (Sodium Chloride) 50 mls @ 200 mls/hr IVPB Q24H [facility] Last Admin: 07/19/18 05:28 Dose: 200 mls/hr Levothyroxine Sodium (Synthroid Tab*) 12.5 mcg PO DAILY@0600 [facility] Last Admin: 07/19/18 05:51 Dose: 12.5 mcg Lidocaine (Lidoderm 5% Patch*) 1 patch TRANSDERM DAILY PRN PRN Reason: PAIN Last Admin: 07/18/18 04:22 Dose: 1 patch Lubiprostone (Amitiza (Nf)) 24 mcg PO BID [facility] Last Admin: 07/19/18 08:24 Dose: 24 mcg Metoprolol Succinate (Toprol Xl Tab*) 25 mg PO DAILY [facility] Last Admin: 07/19/18 08:25 Dose: 25 mg Omeprazole (Prilosec Cap*) 20 mg PO DAILY [facility] Last Admin: 07/19/18 08:25 Dose: 20 mg Oxycodone HCl (Roxycodone Tab*) 20 mg PO Q4HR PRN PRN Reason: PAIN Last Admin: 07/19/18 07:52 Dose: 20 mg Pharmacy Profile Note (Lidocaine Patch Remove*) 1 note PATCH OFF DAILY@2100 [facility] Last Admin: 07/18/18 21:01 Dose: 1 note Polyethylene Glycol/Electrolytes (Miralax*) 17 gm PO DAILY PRN PRN Reason: CONSTIPATION Pregabalin (Lyrica Cap(*)) 50 mg PO QID [facility] Last Admin: 07/19/18 13:05 Dose: 50 mg Simethicone (Mylicon Tab*) 80 mg PO TID [facility] Last Admin: 07/19/18 13:05 Dose: 80 mg Sodium Chloride (Sodium Chloride 0.65% Nasal [place]*) 1 spray BOTH NARES DAILY PRN PRN Reason: dry nose Tiotropium [place] (Spiriva Cap.Inh*) 1 cap INH DAILY [facility] Last Admin: 07/19/18 08:46 Dose: 1 cap Trazodone HCl (Desyrel Tab*) 25 mg PO BEDTIME [facility] Last Admin: 07/18/18 20:55 Dose: 25 mg Vital Signs - 8 hr 07/19/18 07/19/18 07/19/18 07:33 07:52 08:00 Temperature 96.6 F Pulse Rate 89 Respiratory 16 16 16 Rate Blood Pressure 121/64 (mmHg) O2 Sat by Pulse 100 Oximetry 07/19/18 07/19/18 07/19/18 08:25 08:48 09:34 Temperature Pulse Rate 74 Respiratory 16 16 16 Rate Blood Pressure (mmHg) O2 Sat by Pulse 97 Oximetry 07/19/18 07/19/18 12:00 13:05 Temperature 96.6 F Pulse Rate 71 Respiratory 16 18 Rate Blood Pressure 123/58 (mmHg) O2 Sat by Pulse 100 Oximetry Oxygen Devices in Use Now: Nasal Cannula Appearance: asleep on presentation and comfortable, wakes easily, NAD Eyes: No Scleral Icterus, PERRLA Ears/Nose/Mouth/Throat: Clear Oropharnyx Neck: NL Appearance and Movements; NL JVP, Trachea Midline Respiratory: Symmetrical Chest Expansion and Respiratory Effort, Clear to Auscultation, - - no adventituous sounds Cardiovascular: - - irir Abdominal: - - soft. NTTP. mild distention Extremities: - - 2+ LE edema Neurological: Alert and Oriented x 3 Result Diagrams: 07/19/18 06:22 07/19/18 06:22 Assess/Plan/Problems-Billing Assessment: 88 yo F h/o dchf, COPD, afib pw chest pain found with PNA - Patient Problems (1) Pneumonia Comment: CTX and azithro prednisone Incentive spirometry (2) Acute kidney injury Comment: suspect pre renal improving with fluid c/w IVF 1 l again today elevated LV pressures on TTE noted. More fluid will likely contribute to additional peripheral edema (3) Supratherapeutic INR Comment: hold coumadin (4) A-fib Comment: holding coumadin cw metoprolol (5) Chronic obstructive pulmonary disease (COPD) Comment: PO steroids although I suspect PNA is grester contribution to presentation (6) DVT prophylaxis Comment: inr elevated. hold coumadin Status and Disposition: PT eval need for skilled rehab and likely prolonged stay before returning home. Inpatient for continued treatment of PNA and RAZA
[2018-07-19] MEDS: predniSONE TAB* 20 MG PO SCH (16:39)
[2018-07-19] MEDS: Albuterol/Ipratropium NEB.SOL* Albuterol 2.5 MG/Ipratropium 0.5 MG 3 ML INH PRN (19:29)
[2018-07-19] MEDS: traZODone TAB* 50 MG TAB PO SCH (21:20)
[2018-07-19] MEDS: Lidocaine Patch REMOVE* 1 NOTE MISC PATCH OFF SCH (21:24)
[2018-07-20] MEDS: cefTRIAXone VIAL(*) 1,000 MG in NS 0.9% 50 ML* 50 ML IVPB SCH (06:05)
[2018-07-20] MEDS: Levothyroxine TAB* 25 MCG TAB PO SCH (06:08)
[2018-07-20 06:54] LABS: INR 3.02 (0.77-1.02)
[2018-07-20 06:57] LABS: Calcium 8.2 mg/dL (8.6-10.3)
[2018-07-20 07:02] LABS: Potassium 5.4 mmol/L (3.5-5.0)
[2018-07-20 07:03] LABS: BUN/Creatinine Ratio 32.1 (8-20); EGFR African American 23.1 (>60); EGFR Non-African American 19.1 (>60)
[2018-07-20] MEDS: Tiotropium CAP.INH* CAP.INH/18 MCG (USE ORDER SET !) INH SCH (07:47)
[2018-07-20] MEDS: Omeprazole CAP (NF) 20 MG CAP.DR PO SCH (09:02)
[2018-07-20] MEDS: CMC:Lubiprostone 24 MCG CAP (NF) PO SCH ×2 (09:02→20:04)
[2018-07-20] MEDS: Calcium Carbonate CHEW TAB* 500 MG (TUMS) PO SCH (09:02)
[2018-07-20] MEDS: Cholecalciferol TAB* 400 UNIT PO SCH (09:02)
[2018-07-20] MEDS: Metoprolol Succinate XL TAB* 25 MG PO SCH (09:02)
[2018-07-20] MEDS: Famotidine TAB* 20 MG PO SCH (09:02)
[2018-07-20] MEDS: Simethicone TAB* 80 MG TAB.CHEW PO SCH ×3 (09:02→20:02)
[2018-07-20] MEDS: Pregabalin CAP(*) 50 MG PO SCH ×4 (09:02→20:02)
[2018-07-20] MEDS: Azithromycin TAB* 250 MG PO SCH (09:02)
[2018-07-20] MEDS: predniSONE TAB* 20 MG PO SCH (09:03)
[2018-07-20] MEDS: Calcium Polycarbophil TAB* 625 MG PO SCH ×2 (09:03→20:04)
[2018-07-20] MEDS: oxyCODONE TAB* 5 MG TAB PO PRN (11:22)
[2018-07-20] MEDS ORDERED: Patiromer POWDER* 8.4 GM PAK PO ONE (15:09)
--- NOTE | 2018-07-20 16:50 | PN ---
Subjective Date of Service: 07/20/18 Interval History: Pt c/o left hip pain radiating the back of her L leg to her heel x 2 months, gets wore with movement. Objective Active Medications: Acetaminophen (Tylenol Tab*) 650 mg PO Q4H PRN PRN Reason: FEVER/HEADACHE Last Admin: 07/18/18 17:59 Dose: 650 mg Albuterol (Ventolin 2.5 Mg/3 Ml Neb.Stacie*) 2.5 mg INH [id number] AWAKE PRN PRN Reason: SOB/WHEEZING Last Admin: 07/18/18 04:46 Dose: 2.5 mg Albuterol/Ipratropium (Duoneb (Albuterol 2.5 Mg/Ipratropium 0.5 Mg)) 1 neb INH Q4H PRN PRN Reason: SHORTNESS OF BREATH Last Admin: 07/19/18 19:29 Dose: 1 neb Azithromycin (Zithromax Tab*) 250 mg PO DAILY [facility] Stop: 07/24/18 09:01 Last Admin: 07/20/18 09:02 Dose: 250 mg Calcium Carbonate (Tums*) 500 mg PO DAILY [facility] Last Admin: 07/20/18 09:02 Dose: 500 mg Calcium Polycarbophil (Fibercon Tab*) 625 mg PO BID [facility] Last Admin: 07/20/18 09:03 Dose: 625 mg Cholecalciferol (Vitamin D Tab*) 800 unit PO DAILY [facility] Last Admin: 07/20/18 09:02 Dose: 800 unit Docusate Sodium (Colace Cap*) 200 mg PO DAILY PRN PRN Reason: CONSTIPATION Last Admin: 07/18/18 08:48 Dose: 200 mg Famotidine (Pepcid Tab*) 20 mg PO QAM [facility]; Protocol Last Admin: 07/20/18 09:02 Dose: 20 mg Ceftriaxone Sodium 1,000 mg/ (Sodium Chloride) 50 mls @ 200 mls/hr IVPB Q24H [facility] Last Admin: 07/20/18 06:05 Dose: 200 mls/hr Levothyroxine Sodium (Synthroid Tab*) 12.5 mcg PO DAILY@0600 [facility] Last Admin: 07/20/18 06:08 Dose: 12.5 mcg Lidocaine (Lidoderm 5% Patch*) 1 patch TRANSDERM DAILY PRN PRN Reason: PAIN Last Admin: 07/18/18 04:22 Dose: 1 patch Lubiprostone (Amitiza (Nf)) 24 mcg PO BID [facility] Last Admin: 07/20/18 09:02 Dose: 24 mcg Metoprolol Succinate (Toprol Xl Tab*) 25 mg PO DAILY [facility] Last Admin: 07/20/18 09:02 Dose: 25 mg Omeprazole (Prilosec Cap*) 20 mg PO DAILY [facility] Last Admin: 07/20/18 09:02 Dose: 20 mg Oxycodone HCl (Roxycodone Tab*) 20 mg PO Q4HR PRN PRN Reason: PAIN Last Admin: 07/20/18 11:22 Dose: 20 mg Pharmacy Profile Note (Lidocaine Patch Remove*) 1 note PATCH OFF DAILY@2100 [facility] Last Admin: 07/19/18 21:24 Dose: Not Given Polyethylene Glycol/Electrolytes (Miralax*) 17 gm PO DAILY PRN PRN Reason: CONSTIPATION Prednisone (Deltasone Tab*) 40 mg PO DAILY [facility] Last Admin: 07/20/18 09:03 Dose: 40 mg Pregabalin (Lyrica Cap(*)) 50 mg PO QID [facility] Last Admin: 07/20/18 12:51 Dose: 50 mg Simethicone (Mylicon Tab*) 80 mg PO TID PC [facility] Last Admin: 07/20/18 12:51 Dose: 80 mg Sodium Chloride (Sodium Chloride 0.65% Nasal [place]*) 1 spray BOTH NARES DAILY PRN PRN Reason: dry nose Tiotropium [place] (Spiriva Cap.Inh*) 1 cap INH DAILY [facility] Last Admin: 07/20/18 07:47 Dose: 1 cap Trazodone HCl (Desyrel Tab*) 25 mg PO BEDTIME [facility] Last Admin: 07/19/18 21:20 Dose: 25 mg Warfarin Sodium (Coumadin Tab(*)) 2.5 mg PO DAILY@1700 [facility]; Protocol Vital Signs - 8 hr 07/20/18 07/20/18 07/20/18 09:02 11:22 12:51 Respiratory 16 18 18 Rate 07/20/18 12:52 Respiratory 18 Rate Oxygen Devices in Use Now: Nasal Cannula Appearance: 88 yo F in nAD, aAOx3 Eyes: No Scleral Icterus, PERRLA Ears/Nose/Mouth/Throat: NL Teeth, Lips, Gums, Mucous Membranes Moist Neck: NL Appearance and Movements; NL JVP, Trachea Midline Respiratory: Symmetrical Chest Expansion and Respiratory Effort, - - fine bibasiliar crackles Cardiovascular: NL Sounds; No Murmurs; No JVD, RRR Abdominal: NL Sounds; No Tenderness; No Distention Lymphatic: No Cervical Adenopathy Extremities: No Clubbing, Cyanosis, - - 1 pitting pedal edema b/l with venous staisis b/l LE's discoloration Skin: No Nodules or Sclerosis Neurological: Alert and Oriented x 3, NL Muscle Strength and Tone Result Diagrams: 07/19/18 06:22 07/20/18 06:39 Assess/Plan/Problems-Billing Assessment: 88 yo F h/o CHF, COPD, afib c/o chest pain found with PNA - Patient Problems (1) Pneumonia Comment: CTX and azithro prednisone Incentive spirometry (2) A-fib Comment: restart cooumadin tonight cw metoprolol (3) Acute kidney injury Comment: suspect pre renal improved with fluid elevated LV pressures on TTE noted. More fluid will likely contribute to additional peripheral edema. will restart home torsemide, cont to hold Aldactone (4) Chronic obstructive pulmonary disease (COPD) Comment: PO steroids although I suspect PNA is greater contribution to presentation (5) DVT prophylaxis Comment: inr elevated, but coming down, restart coumadin (6) Hyperkalemia Comment: h/o in the past. will tx with patiromer (7) Anemia Comment: chronic, normocytic , with mild worsening, but opt denies BRBPR or melana, cont to monitor (8) DVT prophylaxis Comment: coumadin Status and Disposition: PT eval need for skilled rehab and likely prolonged stay before returning home. Inpatient for continued treatment of PNA and RAZA
[2018-07-20] MEDS: Warfarin TAB(*) 2.5 MG PO SCH (20:03)
[2018-07-20] MEDS: traZODone TAB* 50 MG TAB PO SCH (20:04)
[2018-07-20] MEDS: Lidocaine Patch REMOVE* 1 NOTE MISC PATCH OFF SCH (20:38)
[2018-07-21] MEDS: Levothyroxine TAB* 25 MCG TAB PO SCH (05:43)
[2018-07-21] MEDS: oxyCODONE TAB* 5 MG TAB PO PRN ×2 (05:43→13:54)
[2018-07-21] MEDS: cefTRIAXone VIAL(*) 1,000 MG in NS 0.9% 50 ML* 50 ML IVPB SCH (05:51)
[2018-07-21 06:02] LABS: INR 2.71 (0.77-1.02)
[2018-07-21 06:14] LABS: BUN/Creatinine Ratio 35.8 (8-20); Calcium 8.1 mg/dL (8.6-10.3); EGFR African American 26.6 (>60)
[2018-07-21] MEDS: Albuterol/Ipratropium NEB.SOL* Albuterol 2.5 MG/Ipratropium 0.5 MG 3 ML INH PRN (09:05)
[2018-07-21] MEDS: Tiotropium CAP.INH* CAP.INH/18 MCG (USE ORDER SET !) INH SCH (09:08)
[2018-07-21] MEDS: Calcium Carbonate CHEW TAB* 500 MG (TUMS) PO SCH (09:13)
[2018-07-21] MEDS: Metoprolol Succinate XL TAB* 25 MG PO SCH (09:14)
[2018-07-21] MEDS: Omeprazole CAP (NF) 20 MG CAP.DR PO SCH (09:14)
[2018-07-21] MEDS: Docusate CAP* 100 MG PO PRN (09:15)
[2018-07-21] MEDS: predniSONE TAB* 20 MG PO SCH (09:15)
[2018-07-21] MEDS: CMC:Lubiprostone 24 MCG CAP (NF) PO SCH ×2 (09:16→19:59)
[2018-07-21] MEDS: Pregabalin CAP(*) 50 MG PO SCH ×4 (09:16→19:58)
[2018-07-21] MEDS: Cholecalciferol TAB* 400 UNIT PO SCH (09:16)
[2018-07-21] MEDS: Azithromycin TAB* 250 MG PO SCH (09:16)
[2018-07-21] MEDS: Calcium Polycarbophil TAB* 625 MG PO SCH ×2 (09:16→19:58)
[2018-07-21] MEDS: Famotidine TAB* 20 MG PO SCH (09:17)
[2018-07-21] MEDS: Simethicone TAB* 80 MG TAB.CHEW PO SCH ×3 (09:18→16:59)
[2018-07-21] MEDS: Saline NASAL SPRAY 0.65%* BTL BOTH NARES PRN (09:19)
[2018-07-21] MEDS: Torsemide TAB* 20 MG PO SCH (13:46)
--- NOTE | 2018-07-21 16:41 | PN ---
Subjective Date of Service: 07/21/18 Interval History: Pt c/o breathing "still bad", but 02 sat 96% on home 02 and no increase in WOB noted Objective Active Medications: Acetaminophen (Tylenol Tab*) 650 mg PO Q4H PRN PRN Reason: FEVER/HEADACHE Last Admin: 07/18/18 17:59 Dose: 650 mg Albuterol (Ventolin 2.5 Mg/3 Ml Neb.Stacie*) 2.5 mg INH [id number] AWAKE PRN PRN Reason: SOB/WHEEZING Last Admin: 07/18/18 04:46 Dose: 2.5 mg Albuterol/Ipratropium (Duoneb (Albuterol 2.5 Mg/Ipratropium 0.5 Mg)) 1 neb INH Q4H PRN PRN Reason: SHORTNESS OF BREATH Last Admin: 07/21/18 09:05 Dose: 1 neb Azithromycin (Zithromax Tab*) 250 mg PO DAILY REPLACED BY [facility] Stop: 07/24/18 09:01 Last Admin: 07/21/18 09:16 Dose: 250 mg Calcium Carbonate (Tums*) 500 mg PO DAILY [facility] Last Admin: 07/21/18 09:13 Dose: 500 mg Calcium Polycarbophil (Fibercon Tab*) 625 mg PO BID [facility]PL[facility] Last Admin: 07/21/18 09:16 Dose: 625 mg Cholecalciferol (Vitamin D Tab*) 800 unit PO DAILY [facility] Last Admin: 07/21/18 09:16 Dose: 800 unit Docusate Sodium (Colace Cap*) 200 mg PO DAILY PRN PRN Reason: CONSTIPATION Last Admin: 07/21/18 09:15 Dose: 200 mg Famotidine (Pepcid Tab*) 20 mg PO QAM [facility]PLACED [facility]; Protocol Last Admin: 07/21/18 09:17 Dose: 20 mg Ceftriaxone Sodium 1,000 mg/ (Sodium Chloride) 50 mls @ 200 mls/hr IVPB Q24H [facility]PL[facility] Last Admin: 07/21/18 05:51 Dose: 200 mls/hr Levothyroxine Sodium (Synthroid Tab*) 12.5 mcg PO DAILY@0600 [facility]PL[facility] Last Admin: 07/21/18 05:43 Dose: 12.5 mcg Lidocaine (Lidoderm 5% Patch*) 1 patch TRANSDERM DAILY PRN PRN Reason: PAIN Last Admin: 07/18/18 04:22 Dose: 1 patch Lubiprostone (Amitiza (Nf)) 24 mcg PO BID [facility] Last Admin: 07/21/18 09:16 Dose: 24 mcg Metoprolol Succinate (Toprol Xl Tab*) 25 mg PO DAILY [facility] Last Admin: 07/21/18 09:14 Dose: 25 mg Omeprazole (Prilosec Cap*) 20 mg PO DAILY [facility] Last Admin: 07/21/18 09:14 Dose: 20 mg Oxycodone HCl (Roxycodone Tab*) 20 mg PO Q4HR PRN PRN Reason: PAIN Last Admin: 07/21/18 13:54 Dose: 20 mg Pharmacy Profile Note (Lidocaine Patch Remove*) 1 note PATCH OFF DAILY@2100 [facility] Last Admin: 07/20/18 20:38 Dose: Not Given Polyethylene Glycol/Electrolytes (Miralax*) 17 gm PO DAILY PRN PRN Reason: CONSTIPATION Prednisone (Deltasone Tab*) 40 mg PO DAILY [facility] Last Admin: 07/21/18 09:15 Dose: 40 mg Pregabalin (Lyrica Cap(*)) 50 mg PO QID [facility]PL[facility] Last Admin: 07/21/18 13:47 Dose: 50 mg Simethicone (Mylicon Tab*) 80 mg PO TID PC REPLACED BY [facility] Last Admin: 07/21/18 13:47 Dose: 80 mg Sodium Chloride (Sodium Chloride 0.65% Nasal [place]*) 1 spray BOTH NARES DAILY PRN PRN Reason: dry nose Last Admin: 07/21/18 09:19 Dose: 1 spray Tiotropium [place] (Spiriva Cap.Inh*) 1 cap INH DAILY [facility] Last Admin: 07/21/18 09:08 Dose: 1 cap Torsemide (Demadex*) 40 mg PO DAILY [facility] Last Admin: 07/21/18 13:46 Dose: 40 mg Trazodone HCl (Desyrel Tab*) 25 mg PO BEDTIME [facility]PL[facility] Last Admin: 07/20/18 20:04 Dose: 25 mg Warfarin Sodium (Coumadin Tab(*)) 2.5 mg PO DAILY@1700 [facility]; Protocol Last Admin: 07/20/18 20:03 Dose: 2.5 mg Vital Signs - 8 hr 07/21/18 07/21/18 07/21/18 09:09 09:10 09:16 Temperature Pulse Rate Respiratory 12 16 16 Rate Blood Pressure (mmHg) O2 Sat by Pulse Oximetry 07/21/18 07/21/18 07/21/18 11:04 12:04 13:47 Temperature 97.8 F Pulse Rate 50 Respiratory 14 18 18 Rate Blood Pressure 106/48 (mmHg) O2 Sat by Pulse 98 Oximetry 07/21/18 13:54 Temperature Pulse Rate Respiratory 18 Rate Blood Pressure (mmHg) O2 Sat by Pulse Oximetry Oxygen Devices in Use Now: Nasal Cannula Appearance: 88 yo F in nAD, AAOx3 Eyes: No Scleral Icterus, PERRLA Ears/Nose/Mouth/Throat: NL Teeth, Lips, Gums, Mucous Membranes Moist Neck: NL Appearance and Movements; NL JVP, Trachea Midline Respiratory: Symmetrical Chest Expansion and Respiratory Effort, Clear to Auscultation Cardiovascular: - - irregular Abdominal: NL Sounds; No Tenderness; No Distention, No Hepatosplenomegaly Lymphatic: No Cervical Adenopathy Extremities: No Clubbing, Cyanosis, - - +1 edema b/l Skin: No Rash or Ulcers, No Nodules or Sclerosis Neurological: Alert and Oriented x 3, NL Muscle Strength and Tone Result Diagrams: 07/19/18 06:22 07/21/18 05:32 Assess/Plan/Problems-Billing Assessment: 88 yo F h/o CHF, COPD, afib c/o chest pain found with PNA - Patient Problems (1) Pneumonia Comment: CTX and azithro prednisone Incentive spirometry (2) A-fib Comment: rate controlled cw metoprolol (3) Acute kidney injury Comment: suspect pre renal improved with fluid elevated LV pressures on TTE noted. More fluid will likely contribute to additional peripheral edema. will Restarted home torsemide 07/20/, cont to hold Aldactone (4) Chronic obstructive pulmonary disease (COPD) Comment: PO steroids although I suspect PNA is greater contribution to presentation (5) DVT prophylaxis Comment: cont coumadin (6) Hyperkalemia Comment: h/o in the past. tx with patiromer 07/21, now better. May not be a good candidate for Aldactone tx. (7) Anemia Comment: chronic, normocytic , with mild worsening, but pt denies BRBPR or melana, cont to monitor (8) DVT prophylaxis Comment: coumadin Status and Disposition: PT eval need for skilled rehab and likely prolonged stay before returning home. Transfer to [facility] tomorrow
[2018-07-21] MEDS: Warfarin TAB(*) 2.5 MG PO SCH (16:59)
[2018-07-21] MEDS: traZODone TAB* 50 MG TAB PO SCH (19:58)
[2018-07-21] MEDS: Lidocaine Patch REMOVE* 1 NOTE MISC PATCH OFF SCH (19:59)
[2018-07-22] MEDS: Levothyroxine TAB* 25 MCG TAB PO SCH (05:08)
[2018-07-22 06:21] LABS: INR 2.49 (0.77-1.02)
[2018-07-22] MEDS: cefTRIAXone VIAL(*) 1,000 MG in NS 0.9% 50 ML* 50 ML IVPB SCH (06:34)
[2018-07-22] MEDS: oxyCODONE TAB* 5 MG TAB PO PRN ×2 (06:39→14:20)
[2018-07-22 07:43] VITALS: BP 122/55
[2018-07-22] MEDS: CMC:Lubiprostone 24 MCG CAP (NF) PO SCH (07:51)
[2018-07-22] MEDS: Azithromycin TAB* 250 MG PO SCH (07:51)
[2018-07-22] MEDS: Cholecalciferol TAB* 400 UNIT PO SCH (07:51)
[2018-07-22] MEDS: Pregabalin CAP(*) 50 MG PO SCH (07:51)
[2018-07-22] MEDS: Metoprolol Succinate XL TAB* 25 MG PO SCH (07:51)
[2018-07-22] MEDS: Omeprazole CAP (NF) 20 MG CAP.DR PO SCH (07:52)
[2018-07-22] MEDS: Famotidine TAB* 20 MG PO SCH (07:52)
[2018-07-22] MEDS: Simethicone TAB* 80 MG TAB.CHEW PO SCH (07:52)
[2018-07-22] MEDS: Calcium Polycarbophil TAB* 625 MG PO SCH (07:52)
[2018-07-22] MEDS: Calcium Carbonate CHEW TAB* 500 MG (TUMS) PO SCH (07:52)
[2018-07-22] MEDS: Torsemide TAB* 20 MG PO SCH (07:52)
[2018-07-22] MEDS: Saline NASAL SPRAY 0.65%* BTL BOTH NARES PRN (08:03)
[2018-07-22] MEDS: Tiotropium CAP.INH* CAP.INH/18 MCG (USE ORDER SET !) INH SCH (08:26)
[2018-07-22] MEDS ORDERED: predniSONE TAB* 20 MG PO SCH (09:00)
--- NOTE | 2018-07-22 14:09 | DS ---
CC: Dr. Thompson; [facility] * DISCHARGE SUMMARY: DATE OF ADMISSION: 07/17/18 DATE OF DISCHARGE AND TRANSFER TO [facility]: 07/22/18 PRIMARY CARE PROVIDER: Dr. Thompson. DISCHARGE DIAGNOSES: 1. Community-acquired pneumonia. 2. Chronic obstructive pulmonary disease exacerbation. 3. Acute kidney injury. 4. Mild hyperkalemia. SECONDARY DIAGNOSES: 1. Chronic obstructive pulmonary disease, on chronic oxygen at 2 L continuously. 2. History of hypertension. 3. History of chronic atrial fibrillation, on Coumadin. 4. History of chronic pain. 5. History of hypertension. 6. History of chronic bilateral leg edema. 7. History of diastolic congestive heart failure in the past. 8. Status post partial thyroidectomy remotely. MEDICATIONS AT DISCHARGE: Include: 1. Cefdinir 300 mg twice a day for a total of 2 days. 2. Azithromycin 250 mg daily for a total of 2 days. 3. DuoNebs on a p.r.n. basis up to 3 times a day. 4. Calcium carbonate 500 mg 1 chewable daily. 5. FiberCon 625 mg b.i.d. 6. Flexeril 5 to 10 mg on a p.r.n. basis. 7. Vitamin D 800 units daily. 8. Colace 200 mg daily. 9. Xopenex inhaler 1 puff 4 times a day. 10. Synthroid 12.5 mcg daily. 11. Lidoderm patch 5% apply to painful areas daily. 12. Amitiza 24 mcg b.i.d. 13. Metoprolol succinate 25 mg daily. 14. Nitroglycerin tablet on a p.r.n. basis. 15. Prilosec 20 mg b.i.d. 16. Oxycodone 20 mg every 4 hours p.r.n. 17. Oxymorphone 15 mg b.i.d. 18. MiraLAX 17 g daily. 19. Lyrica 50 mg 4 times a day. 20. Zantac 150 mg daily. 21. Actonel 35 mg weekly. 22. Simethicone 80 mg every 6 hours p.r.n. 23. Spiriva 1 inhalation daily. 24. Sodium chloride spray to nose p.r.n. dryness. 25. Demadex 40 mg daily. 26. Coumadin 3 mg daily. 27. Acidophilus 1 tablet daily. 28. Lorazepam 0.5 mg at bedtime. 29. Prednisone 20 mg daily for 3 days, then 10 mg daily for 4 days, then stop. 30. Trazodone 25 mg at bedtime. LABORATORY DATA AND STUDIES PERFORMED DURING THE HOSPITAL STAY: Included: On 07/21/18, sodium of 141, potassium of 5.0, chloride 111, carbon dioxide 26, BUN 76, creatinine 2.12. On 07/19/18, white blood cell count of 4.2, hemoglobin 8.8 , hematocrit of 28, and platelets of 116. Renal ultrasound documented on 07/17/18, impression: "Sonographic findings are most consistent with medical renal disease." Portable chest x-ray obtained on admission, impression: "Chest x-ray findings are most consistent with infiltrate at the posterior right lower lobe. Appears a small interval increase in degree of vascular congestion relative to the previous chest x- ray." Transthoracic echocardiogram obtained on 07/18/18 showed EF of 50% to 55% with both atria severely dilated with aortic valve sclerosis with trace aortic regurgitation and moderate mitral regurgitation and moderate tricuspid regurgitation. Pulmonary hypertension estimated at 53 mmHg. Hip x-ray of the left hip documented on 07/20/18 showed [id number] degenerative changes of the left hip with complete loss of the joint space. Subchondral cyst formation and subchondral eburnation. HOSPITALIZATION COURSE: Kimberly Saldana is an 88-year-old female with history of COPD, oxygen dependent at 2 L, who presented to the hospital complaining of shortness of breath. The patient was noted to have infiltrate on her chest x- ray and to be in a COPD exacerbation. She was progressed on ceftriaxone, azithromycin, as well as steroids with good results to treat COPD exacerbation and pneumonia. The patient also was noted to have acute kidney injury likely due to prerenal causes. Her diuretics were transiently stopped. Her Aldactone was discontinued due to hyperkalemia. By the time of discharge, the patient's creatinine was 2.12 closer to the patient's baseline, which is around 1.5. At admission, the patient's creatinine was 2.36. The patient's kidney ultrasound showed only medical renal disease. By the time of discharge, the patient was too deconditioned to go back to independent living and according to Physical Therapy evaluation, she qualified for short-term rehabilitation. She was accepted to [facility] for rehabilitation where she is going to be transferred on 07/22/18 for further rehab. PHYSICAL EXAM: At the time of discharge, blood pressure of 122/55, heart rate of 53 and irregularly irregular, respiratory rate 18, oxygen saturation 98% on 2 L of oxygen via nasal cannula, temperature of 97.5. General: The patient is a very pleasant 88-year-old female, who is not in acute distress. Alert, awake , and oriented x3. HEENT: Head: Atraumatic, normocephalic. Eyes: Pupils are equal, reactive to light and accommodation. Oropharynx is clear. Mucosa moist. Neck: Supple. No JVD. No bruits bilaterally. Cardiovascular: Irregularly irregular rhythm. No murmur. Respiratory: Faint crackles at left lower base, otherwise clear. Abdomen: Soft, nontender. Bowel sounds are present in all 4 quadrants. Extremities: There is +1 bilateral pitting pedal edema. Pulses are +2 bilaterally. There is no clubbing or cyanosis. On neuro evaluation, speech clear. Cranial nerves II through XII grossly intact. Motor strength is 5/5 bilaterally. Psychiatric Evaluation: Oriented x2 with no evidence of anxiety or depression. Please note that the patient's INR initially was supratherapeutic on 07/18/18 at 4.15 and her Coumadin was stopped. It was restarted on 07/20/18. By the time of discharge, her INR level was 2.49. The patient had been for the past few days on Coumadin at 2.5 mg daily as she is advised to continue Coumadin at 3 mg daily with INR in another 2 to 3 days. Due to the patient's hyperkalemia and acute kidney injury during the patient's hospital stay, the basic metabolic panel is advised to be obtained in approximately a week after discharge. Please note that this is a short summary of the patient's hospital stay. Please refer to further medical records for details. TIME SPENT: Approximately 45 minutes was spent in preparation of the patient's discharge. [id number]/CPS #: [id number]
[2018-07-23] MEDS ORDERED: Pantoprazole TAB * 40 MG TAB PO SCH (09:00)
== END 2018-07-22 14:50 | disposition home health service (06) | DRG 194 ==
LOC: ED 23:59 → MEDTELE 07-17 06:04 → UNDODISIN 07-22 13:54
PROVIDERS: ADMIT Internal Medicine; ATTEND Internal Medicine
DX: J18.9 Pneumonia, unspecified organism (principal); J44.1 Chronic obstructive pulmonary disease with (acute) exacerbation; J44.0 Chronic obstructive pulmonary disease with (acute) lower respiratory infection; I50.32 Chronic diastolic (congestive) heart failure; N17.9 Acute kidney failure, unspecified; D69.6 Thrombocytopenia, unspecified; I25.10 Atherosclerotic heart disease of native coronary artery without angina pectoris; I11.0 Hypertensive heart disease with heart failure; E78.00 Pure hypercholesterolemia, unspecified; G62.9 Polyneuropathy, unspecified; Z88.3 Allergy status to other anti-infective agents; F41.9 Anxiety disorder, unspecified; M17.0 Bilateral primary osteoarthritis of knee; K21.9 Gastro-esophageal reflux disease without esophagitis; F32.9 Major depressive disorder, single episode, unspecified; Z90.49 Acquired absence of other specified parts of digestive tract; M46.90 Unspecified inflammatory spondylopathy, site unspecified; Z99.81 Dependence on supplemental oxygen; Z90.710 Acquired absence of both cervix and uterus; Z98.42 Cataract extraction status, left eye; Z88.6 Allergy status to analgesic agent; Z88.1 Allergy status to other antibiotic agents; Z87.01 Personal history of pneumonia (recurrent); E87.5 Hyperkalemia; R79.1 Abnormal coagulation profile; D64.9 Anemia, unspecified; Z88.5 Allergy status to narcotic agent; Z88.2 Allergy status to sulfonamides; Z98.41 Cataract extraction status, right eye; Z86.11 Personal history of tuberculosis; Z86.19 Personal history of other infectious and parasitic diseases; Z82.49 Family history of ischemic heart disease and other diseases of the circulatory system; Z87.891 Personal history of nicotine dependence; I48.2 Chronic atrial fibrillation; Z79.01 Long term (current) use of anticoagulants
CPT/HCPCS: 36415; 71046; 76775; 80048; 80053; 81003; 83605; 84443; 84484; 85025; 85379; 85610; 93005; 93306; 94640; 99284; A9270-GY; G8978-GP-CK; G8979-GP-CI; G8987-GO-CK; G8988-GO-CI; J0456; J0696; J7512

== ENCOUNTER 2018-09-09 16:54 | Inpatient (IN) | payer MEDICARE, BC ==
--- NOTE | 2018-09-09 17:20 | ED ---
GI/ HPI - HPI Summary HPI Summary: This pt is an 88 y/o female [facility] to [facility] c/o abd pain. Pt reports her pain is on the left lower quadrant. She states today while having a bowel movement she felt something protruding from her rectum. Denies hx of hemorrhoids. Pt notes she was straining a little bit. Additionally pt states she swelling in bilateral legs and her legs are always painful. She reports her legs have never been red like they are today. Denies fever, chest pain, SOB. PMHx includes COPD currently on [place] oxygen. 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 POS : feeling something protrude from rectum. Negative: Fever, Chills, Chest Pain Aggravating Factor(s): Nothing Alleviating Factor(s): Nothing - Additional Pertinent History Primary Care Physician: [id number] - Allergy/Home Medications Allergies/Adverse Reactions: Allergies Allergy/AdvReac Type Severity Reaction Status Date / Time fentanyl Allergy Unknown Difficulty Verified 07/17/18 00:23 Breathing sulfamethoxazole AdvReac Intermediate Nausea Verified 07/17/18 00:23 [From Bactrim] trimethoprim [From Bactrim] AdvReac Intermediate Nausea Verified 07/17/18 00:23 ciprofloxacin AdvReac Hives Verified 07/17/18 00:23 codeine AdvReac Hives Verified 07/17/18 00:23 Penicillins AdvReac Hives Verified 07/17/18 00:23 Home Medications: Home Medications Fexofenadine HCl 180 mg PO DAILY 09/09/18 [History Confirmed 09/09/18] Ipratropium 0.5MG/2.5ML NEB* [Atrovent 0.5 MG NEB.LOKESH*] 1 vial INH Q4HR PRN [History Confirmed 09/09/18] Spironolactone 25 mg PO DAILY 09/09/18 [History Confirmed 09/09/18] PMH/Surg Hx/FS Hx/Imm Hx Endocrine/Hematology History: Reports: Hx Anticoagulant Therapy - coumadin for a fib, Hx Blood Disorders - chronic thrombocytopenia, Hx Thyroid Disease - juwan, Hx Anemia - HX OF Denies: Hx Diabetes Cardiovascular History: Reports: Hx Angina, Hx Congestive Heart Failure, Hx Coronary Artery Disease, Hx Hypercholesterolemia, Hx Hypertension, Other Cardiovascular Problems/Disorders - AFIB Denies: Hx Aneurysm, Hx Auto Implanted Cardiovert Defib, Hx Cardiac Arrest, Hx Cardiomegaly, Hx Deep Vein Thrombosis, Hx Myocardial Infarction, Hx Pacemaker /ICD, Hx Valvular Heart Disease Respiratory History: Reports: Hx Asthma, Hx Chronic Obstructive Pulmonary Disease (COPD) - 2L O2 @ night, Hx Pneumonia - Hospitalized from 10/14/14 - and 04/26; 01/2017, Hx Seasonal Allergies, Other Respiratory Problems/ Disorders - BILAT PNEUMONIA 10/25. PT WITH TB 1994 Denies: Hx Lung Cancer - 2L O2 at night - on 4L continuous since pneumonia January 2017, Hx Pulmonary Embolism GI History: Reports: Hx Gall Bladder Disease - cholecystectomy 1976, Hx Gastroesophageal Reflux Disease - CONTROL WITH MED, Hx Ulcer, Other GI Disorders - partial gastrectomy 1972 Denies: Hx Gastrointestinal Bleed, Hx Urosepsis History: Reports: Other Problems/Disorders - hysterectomy breast biopsy left Denies: Hx Acute Renal Failure, Hx Benign Prostatic Hyperplasia, Hx Kidney Stones, Hx Renal Disease Musculoskeletal History: Reports: Hx Arthritis - BACK, KNEES, Hx Back Problems - laminectomy, Hx Orthopedic Injury - hx r arm, r ankle, toes, Other Musculoskeletal History - back surgery 1995 Sensory History: Reports: Hx Cataracts - removed, Hx Contacts or Glasses - reading glasses Denies: Hx Eye Injury, Hx Eye Prosthesis, Hx Glaucoma, Hx Macular Degeneration, Hx Deafness, Hx Hearing Aid, Hx Hearing Problem, Other Sensory Impairments Opthamlomology History: Reports: Hx Cataracts - removed, Hx Contacts or Glasses - reading glasses Denies: Hx Eye Injury, Hx Eye Prosthesis, Hx Glaucoma, Hx Macular Degeneration, Other Sensory Impairments Neurological History: Reports: Other Neuro Impairments/Disorders - PERIPHERAL NEUROPATHY BILAT Denies: Hx Dementia, Hx Developmental Delay, Hx Migraine, Hx Seizures, Hx Transient Ischemic Attacks (TIA) Psychiatric History: Reports: Hx Anxiety - CONTROL WITH MED, Hx Depression - CONTROL WITH MED Denies: Hx Panic Disorder, Hx Schizophrenia, Hx Bipolar Disorder, Hx Suicide Attempt, Hx of Violent Episodes Against Others - Cancer History Cancer Type, Location and Year: breast lumpectomy was benign Hx Chemotherapy: No Hx Radiation Therapy: No - Surgical History Surgery Procedure, Year, and Place: T&A A CHILD. groin abscess A CHILD. appendectomy, cholecystectomy, [facility]. hysterectomy partial, [facility]. thyroidectomy partial, [facility]. L breast and R lung biopsies, [facility]. 1995 laminectomy L4,5, [facility]. gastrectomy partial 1973 r/t hemmorhaging ulcer;. Carpal Tunnel Surgery Right Wrist by Dr. Chauhan in July 2015. BILAT CATARACTS, [facility]. right lymph node bx 1994, [facility]. left leg surgery- vein 2003 [facility]. Left Breast lumpectomy 1982, [facility] Hx Anesthesia Reactions: No - Immunization History Date of Tetanus Vaccine: 2013 Date of Influenza Vaccine: Fall 2012 Infectious Disease History: No Infectious Disease History: Reports: Hx Tuberculosis, History Other Infectious Disease - hx e-coli sepsis and pneumonia February 2017 Denies: Hx Clostridium Difficile, Hx Hepatitis, Hx Human Immunodeficiency Virus (HIV), Hx of Known/Suspected MRSA, Hx Known/Suspected VRE, Hx Known/ Suspected VRSA, Traveled Outside the [place] in Last 30 Days - Family History Known Family History: Positive: Cardiac Disease - father - CHF, brother - aneurysm Negative: Hypertension, Diabetes - Social History Alcohol Use: None Alcohol Amount: 2 drinks per week Hx Substance Use: No Substance Use Type: Reports: None Substance Use Comment - Amount & Last Used: oxycodone and oxymorphone Hx Tobacco Use: Yes Smoking Status (MU): Former Smoker Type: Cigarettes Amount Used/How Often: 2 packs per week Length of Time of Smoking/Using Tobacco: ON AND OFF 45 YRS Have You Smoked in the Last Year: No Review of Systems Negative: Fever, Chills Negative: Chest Pain Negative: Shortness Of Breath Positive: Abdominal Pain Genitourinary: Other - POS: feeling something protrude from rectum Positive: Edema - in bilateral legs Skin: Other - POS: redness in bilateral legs All Other Systems Reviewed And Are Negative: Yes Physical Exam - Summary Physical Exam Summary: VITAL SIGNS: Reviewed. GENERAL: Patient is a well-developed and nourished female without acute distress who is lying comfortable in the stretcher. HEAD AND FACE: No signs of trauma. No ecchymosis, hematomas or skull depressions. No sinus tenderness. EYES: PERRLA, EOMI x 2, No injected conjunctiva, no nystagmus. EARS: Hearing grossly intact. Ear canals and tympanic membranes are within normal limits. MOUTH: Oropharynx within normal limits. NECK: Supple, trachea is midline, no adenopathy, no JVD, no carotid bruit, no c- spine tenderness, neck with full ROM. CHEST: Symmetric, no tenderness at palpation LUNGS: Clear to auscultation bilaterally. No wheezing or crackles. Pt is on 2L of [place] oxygen. CVS: Regular rate and rhythm, S1 and S2 present, no murmurs or gallops appreciated. ABDOMEN: Soft. Left lower quadrant tenderness. No signs of distention. No rebound no guarding, and no masses palpated. Bowel sounds are normal. RECTAL EXAM: Luciana, RN, is present as female pig sticker. Normal sphincter tone. Multiple small hemorrhoids. EXTREMITIES: Bilateral lower extremity swelling and redness. NEURO: Alert and oriented x 3. No acute neurological deficits. Speech is normal and follows commands. SKIN: Dry and warm Triage Information Reviewed: Yes Vital Signs On Initial Exam: Initial Vitals Temp Pulse Resp BP Pulse Ox 97.6 F 102 16 111/68 99 09/09/18 17:00 09/09/18 17:00 09/09/18 17:00 09/09/18 17:00 09/09/18 17:00 Vital Signs Reviewed: Yes Diagnostics - Vital Signs Vital Signs Temp Pulse Resp BP Pulse Ox 09/09/18 17:00 97.6 F 102 16 111/68 99 - Laboratory Result Diagrams: 09/09/18 18:27 09/09/18 18:27 Lab Statement: Any lab studies that have been ordered have been reviewed, and results considered in the medical decision making process. - Ultrasound No standard instances Ultrasound Interpretation Completed By: Radiologist Summary of Ultrasound Findings: US of Bilateral Lower Extremities IMPRESSION: 1. No evidence of right or left lower extremity DVT. 2. Subcutaneous edema. Dr. Espinoza has reviewed this report. - EKG 17:26 Cardiac Rate: Tachycardia - at 106 bpm EKG Rhythm: Atrial Fibrillation EKG Comparison: No Significant Change - similar to prior EKG on 05/20/18. Summary of EKG Findings: Atrial fibrillation at 106 bpm GIGU Course/Dx - Course Assessment/Plan: This patient is an 88-year-old female who presents to the emergency department with chief complaint of having left upper quadrant pain and pain in the rectum. Rectal exam showed a normal sphincter tone and multiple small hemorrhoids. Patient also has bilateral lower extremity edema, pain and erythema therefore I ordered an ultrasound and blood work to rule out cellulitis versus DVTs. I also will order CT of the abdomen and pelvis to rule out diverticulitis. Patients CBC within normal limits except for hemoglobin of 9.1 hematocrit 29. Bilateral lower extremity ultrasound impression: No evidence for right or left extremity DVT. At this time the patient is waiting for the abdominal pelvic CT and the rest of the workup. Patient will be signed out to Dr. Ingram at shift change. The patient is hemodynamically stable. - Diagnoses Provider Diagnoses: Abdominal pain, Partial bowel obstruction Discharge - Sign-Out/Discharge Documenting (check all that apply): Sign-Out Patient Signing out patient TO: Martinez Ingram - pending CT abdomen/pelvis Patient Received Moderate/Deep Sedation with Procedure: No - Discharge Plan Condition: Stable Disposition: ADMITTED TO [facility] - Billing Disposition and Condition Condition: STABLE - Attestation Statements Document Initiated by uSsan: Yes Documenting Scribe: Patricia Orourke Provider For Whom Susan is Documenting (Include Credential): Armando Espinoza MD Scribe Attestation: IPatricia, scribed for Armando Espinoza MD on 09/10/18 at 0726. Scribe Documentation Reviewed: Yes Provider Attestation: The documentation as recorded by the Patricia lynne accurately reflects the service I personally performed and the decisions made by me, Armando Espinoza MD Status of Scribe Document: Viewed
--- OUTSIDE RECORDS SUMMARY | 2018-09-09 18:26 | XMS REPORT | Continuity of Care Document ---
:1930 External Reference #:[id number] Author Name Carlos Fernandez M.D. Address [address] [place] [address] Care Team Providers Name Role Phone Jose Thompson M.D. Primary Care Physician Unavailable Payers Date Identification Numbers Payment Provider Subscriber Policy Number: [id number] Medicare - NGS Kimberly Saldana PayID: [id number] [address] Policy Number: [id number] [facility] Kimberly Saldana PayID: [id number] [place] [address] Advance Directives Description No Information Available Problems Date Description Provider Status Onset: Asthma Active Onset: Gastroesophageal reflux disease Active Onset: Hypothyroidism Active Onset: Atrial fibrillation Active Onset: Essential hypertension Active Onset: Osteoporosis Active Onset: H/O: depression Active Onset: Neuropathy Active Onset: 01/25/2016 Chalazion Deanne Alves O.D. Onset: 01/25/2016 Vitreous degeneration Deanne Alves OTavares Onset: 01/25/2016 Pseudophakia Deanne Alves OTavares Onset: 03/11/2016 Tear film insufficiency Erika Smiley O.D. Active Onset: 03/11/2016 Internal hordeolum Erika Smiley O.D. Active Onset: 07/21/2016 Bilateral age-related nonexudative Carlos Fernandez M.D. Active macular degeneration Onset: 01/27/2018 Angular blepharoconjunctivitis Merlyn J. Stockwin, Active O.D. 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 ETOH Use Denies alcohol use Recreational Drug Use Denies Drug Use Tobacco Use Start: Unknown End: Patient is a former smoker quit ~1992 Unknown Smoking Status Reviewed: 09/06/18 Patient is a former smoker quit ~1992 Allergies, Adverse Reactions, Alerts Date Description Reaction Status Severity Comments 01/23/2016 Penicillin Active 01/23/2016 Cipro Active 07/24/2017 Duragesic Active 07/24/2017 Bactrim Active Medications Medication Date Status Form Strength Qnty SIG Indications Ordering Provider Olopatadine HCL 05/12/ Active Solution 0.2% 2.500m 1 drop Merlyn Montano 2017 l both eyes Cooper every day O.DAlice Patanol 05/08/ Active Solution 0.1% 5units 1 drop H04.123 Merlyn Montano 2015 daily in [place], am O.DAlice Cartia XT / Active Caps ER 120mg Unknown 0000 24HR Furosemide / Active Tablets 20mg Unknown 0000 Levothyroxine / Active Tablets 25mcg Darlow, Sodium 0000 Jose Adorno M.D. Lorazepam / Active Tablets 0.5mg Take One Unknown 0000 Tablet By Mouth Twice A Day as Needed For Anxiety; Maximum Da Lyrica / Active Capsules 25mg Unknown 0000 Metoprolol / Active Tablets ER 25mg Take One Unknown Succinate ER 0000 24HR Tablet By Mouth Every Day Nitrostat / Active Tablets 0.4mg Everettlow, 0000 Elise Adorno M.D. Omeprazole / Active [...] Daily Dose=2 Spiriva / Active Capsules 18mcg Donna, Handihaler 0000 Jose Adorno M.D. Spironolactone / Active Tablets 25mg Maghaydah 0000 , Qutaybeh MAliceDAlice Warfarin Sodium / Active Tablets 3mg Take One Unknown 0000 Tablet By Mouth Every Day Or as Directed Xopenex HFA 00/ Active Aerosol 45mcg/Act Darlow, 0000 Jose A MAliceDAlice Calcium / Active Tablets 500mg every day Unknown 0000 Linzess / Active Capsules 290mcg Unknown 0000 Spiriva Respimat / Active Aerosol 1.25mcg/Ac Unknown 0000 t Symbicort / Active Aerosol 80-4.5mcg/ Unknown 0000 Act Stool Softener / Active Capsules 100mg Unknown 0000 Gas-X / Active Chewtabs 80mg Unknown 0000 Refresh Tears / Active [facility].5[facility] Stockwin, needed O.D. Maxitrol 02/05/ Hx Ointment 3.5-29800- 3.500g [facility] - 0.1 m bedtime Stockwin, 05/07/ O.D. 2016 Systane Ultra 02/02/ Hx Solution 0.4-0.3% 1 drop Merlyn Montano 2016 - both eyes Stockwin, 02/09/ every day O.D. 2017 Bacitracin 01/24/ Hx Ointment 500Unit/GM 3.500g Apply To H00.11 Merlyn Montano (Ophthalmic) 2016 - m ALL Lids Stockwin, 05/07/ AT O.D. 2016 Bedtime For 3 Weeks Risedronate / Hx Tablets 35mg Unknown Sodium 0000 - 2017 Aspirin Ec / Hx Tablets DR 81mg every day Unknown - 2018 Vitamin D3 / Hx Capsules 97080Weba every day Unknown 0000 - 2017 Advair HFA / Hx Aerosol 115-21mcg/ every day Unknown 0000 - Act 2017 Sulfamethoxazole / Hx Tablets 800-160mg 1 tab Unknown /Trimethoprim DS 0000 - twice a 2018 Magnesium / Hx Tablets 250mg Unknown 0000 - 2017 Immunizations Description No Information Available Vital Signs Description No Information Available Results Description No Information Available Procedures Date Code Description Status 01/27/2018 16971 Est Patient Intermediate Exam Completed 07/24/2017 67045 Scanning Computerized Opthalmic Diagnostic Posterior Seg Completed Retina 07/24/2017 54248 Determination Of Refractive State Completed 07/24/2017 47156 Est Patient Comprehensive Exam Completed 07/21/2016 69108 Scanning Computerized Opthalmic Diagnostic Posterior Seg Completed Retina 07/21/2016 56971 Determination Of Refractive State Completed 07/21/2016 21698 Est Patient Comprehensive Exam Completed 05/08/2016 74499 Est Patient Intermediate Exam Completed 02/04/2016 07086 Est Patient Intermediate Exam Completed 01/25/2016 14881 Est Patient Comprehensive Exam Completed 04/06/2014 83502 Determination Of Refractive State Completed 04/06/2014 00588 Est Patient Comprehensive Exam Completed 02/25/2013 38573 Est Patient Intermediate Exam Completed 06/18/2012 03010 Est Patient Comprehensive Exam Completed 06/18/2012 63528 Determination Of Refractive State Completed 06/10/2010 20799 Determination Of Refractive State Completed 06/10/2010 21751 Est Patient Comprehensive Exam Completed 04/24/2010 [address] [place] Tears Plus Completed 03/21/2010 45312 Est Patient Intermediate Exam Completed 01/19/2009 48603 Est Patient Comprehensive Exam Completed 01/19/2009 510 Eye Scrubs 30 Count Completed 02/23/2008 06698 Remove Secondary Cataract, Laser (Yag) Completed 01/24/2008 02101 Est Patient Comprehensive Exam Completed 12/16/2006 21432 Determination Of Refractive State Completed 12/16/2006 14052 Est Patient Comprehensive Exam Completed 12/16/2006 500 Systane Eye Drops 15 ML Completed 10/16/2004 49909 Determination Of Refractive State Completed 10/16/2004 01580 Est Patient Comprehensive Exam Completed 10/07/2004 62793 Rescheduled Appointment Completed Encounters Type Date Location Provider Dx Diagnosis Office Visit 02/10/2018 Merlyn Jin H04.123 Dry eye syndrome 1:20p , toya Gamboa O.D. of bilateral lacrimal glands H10.523 Angular blepharoconjunctivitis, bilateral H35.3131 Nexdtve age-related mclr degn, bilateral, early dry stage Office Visit 01/06/2017 3:30p Carlos Smiley, H00.021 Stef Fernandez MD, toya O.D. internum right upper eyelid H00.024 Hordeolum internum left upper eyelid H04.123 Dry eye syndrome of bilateral lacrimal glands Office Visit 03/11/2016 3:30p Carlos Fernandez, Erika Smiley, H00.11 Chalazion right , toya Chisholm upper eyelid H04.123 Dry eye syndrome of bilateral lacrimal glands H00.021 Hordeolum internum right upper eyelid Office Visit 02/06/2016 10:20a Carlos Montano H00.14 Chalazion left MD Jim, toya Gamboa O.D. upper eyelid H00.11 Chalazion right upper eyelid Z96.1 Presence of intraocular lens Office Visit 03/21/2013 11:30a Carlos Montano 372.14 Allergic MD Jim, toya Gamboa O.D. Conjunctivitis Office Visit 05/22/2010 11:00a Carlos Crawford 375.15 Dry Eyes (Jeimy Fernandez MD, toya Saldana O.D. Syndrome) Office Visit 04/24/2010 8:15a Carlos Crawford 375.15 Dry Eyes (Jeimy Fernandez MD, toya Saldana O.D. Syndrome) Office Visit 09/06/2008 12:15p Carlos Crawford 375.15 Dry Eyes (Jeimy Fernandez MD, toya Saldana O.D. Syndrome) Plan of Treatment 09/06/2018 - Carlos Fernandez M.D.H35.3131 Nonexudative age-related macular degeneration, bilateral, early dry stageComments:Smoking can increase the risk of developing or worsening any eye related disease, as well as affect your overall health. If you are a smoker, we strongly recommend that you quit.If you are not a smoker, we strongly recommend that you do not start. You have Macular Degeneration. Check your Amsler Grid, with each eye separately, and take the AREDS II formula vitamins. If you notice any changes in your vision, please call the office and schedule an appointment to see any of the doctors here.Follow up:1 Year Follow Up OCT MAC You can expect to have your eyes dilated at your next visit. If Dr. Fernandez orders any additional testing, it may require extra time. We recommend that you bring sunglasses, as dilation drops often make you light sensitive until they wear off. We always recommend you bring someone to drive you home if you are uncomfortable driving with your eyes dilated. If you have any questions before your next visit, feel free to call our office at .Z96.1 Presence of intraocular lensComments:The artificial lens implants in both eyes appear to be stable at this time.H04.123 Dry eye syndrome of bilateral lacrimal glands
[2018-09-09 18:44] LABS: Hematocrit 29 % (35-47); Hemoglobin 9.1 g/dl (12.0-16.0); Mean Corpuscular HGB Conc 31 g/dl (31-36); Mean Corpuscular Hemoglobin 27 pg (27-31); Mean Corpuscular Volume 86 fL (80-97); Red Blood Count 3.39 10^6/ul (4.00-5.40); Red Cell Distribution Width 20 % (10.5-15); White Blood Count 5.1 10^3/ul (3.5-10.8)
[2018-09-09 18:47] LABS: ABS Basophils 0 10^3/ul (0-0.2); ABS Eosinophils 0 10^3/ul (0-0.6); ABS Lymphocytes 0.9 10^3/ul (1.0-4.8); ABS Monocytes 0.4 10^3/ul (0-0.8); ABS Neutrophils 3.7 10^3/ul (1.5-7.7); ABS Nucleated RBC 0 10^3/ul; Eosinophil % 0.7 %; Lymphocyte % 17.4 %; Mean Platelet Volume 9.2 fL (7.4-10.4); Nucleated Red Blood Cells % 0.1; Platelet Count 95 10^3/ul (150-450)
[2018-09-09 18:58] LABS: Albumin 3.5 g/dL (3.2-5.2); Albumin/Globulin Ratio 1.1 (1-3); C Reactive Protein 40.53 mg/L (<8.01); Calcium 8.1 mg/dL (8.6-10.3); EGFR African American 38.2 (>60); EGFR Non-African American 31.6 (>60); Globulin 3.3 g/dL (2-4); Magnesium 1.6 mg/dL (1.9-2.7); Potassium 3.8 mmol/L (3.5-5.0); Total Bilirubin 0.5 mg/dL (0.2-1.0); Total Protein 6.8 g/dL (6.4-8.9)
[2018-09-09] MEDS ORDERED: Iodixanol* (CONTRAST) 320 MG/ML 100 ML SDV IV ONE (19:09)
[2018-09-09 20:37] LABS: Urine Appearance Clear; Urine Bilirubin Negative (Negative); Urine Blood Negative (Negative); Urine Color Yellow; Urine Glucose Negative (Negative); Urine Ketones Negative (Negative); Urine Nitrite Negative (Negative); Urine Protein Negative (Negative); Urine Urobilinogen Negative (Negative)
--- NOTE | 2018-09-09 20:59 | ED ---
Progress - Progress Note Progress Note: Pt is a signout from Dr. Espinoza pending CT ABD/PELV. - Results/Orders Results/Orders: CT ABD/PELV 1. Stable small hiatal hernia. 2. Stable punctate nonobstructive right nephrolithiasis. 3. Stable postoperative changes of cholecystectomy with stable significant intrahepatic and extrahepatic biliary dilation but no visible obstructing calculus. 4. As previously seen, there are mildly prominent small bowel loops with oral contrast progressed to the level of the distal ileum, cannot exclude some degree of small bowel obstruction or ileus. 5. As previously seen, there is significant stool volume throughout the colon and rectum. There is mild wall thickening in the lower rectum, cannot exclude proctitis. 6. There is a 2.6 cm right inguinal hernia containing a short segment of distal small bowel without resulting small bowel obstruction at this level or other evidence for incarceration. ED physician has reviewed this report. - Consult/PCP Time Called: 21:10 Consult/PCP: Dr. Regalado - recommended pt be admitted w/ dx of abd pain and he will f/u. Course/Dx - Course Course Of Treatment: The pt is a signout from Dr. Espinoza pending CT abd/pelv due to urine incontinence and frequent bowel movements. CT ABD/PELV shows 1. Stable small hiatal hernia. 2. Stable punctate nonobstructive right nephrolithiasis. 3. Stable postoperative changes of cholecystectomy with stable significant intrahepatic and extrahepatic biliary dilation but no visible obstructing calculus. 4. As previously seen, there are mildly prominent small bowel loops with oral contrast progressed to the level of the distal ileum, cannot exclude some degree of small bowel obstruction or ileus. 5. As previously seen, there is significant stool volume throughout the colon and rectum. There is mild wall thickening in the lower rectum, cannot exclude proctitis. 6. There is a 2.6 cm right inguinal hernia containing a short segment of distal small bowel without resulting small bowel obstruction at this level or other evidence for incarceration. Spoke with Dr. Regalado who recommended the pt be admitted to [facility] with a dx of abd pain. The pt is stable and agreeable to this plan. The pt will be admitted under Dr. Miranda. - Diagnoses Provider Diagnoses: Abdominal pain, Partial bowel obstruction Discharge - Sign-Out/Discharge Documenting (check all that apply): Patient Departure, Receiving Sign-Out Receiving patient FROM: Armando Espinoza - Discharge Plan Condition: Stable Disposition: ADMITTED TO [facility] - Billing Disposition and Condition Condition: STABLE Disposition: Admitted to [facility] - Attestation Statements Document Initiated by Vinceibe: Yes Documenting Scribe: Laure Logan Provider For Whom Susan is Documenting (Include Credential): Martinez Ingram MD. Scribe Attestation: Laure Xie, lolitaed for Martinez Ingram MD. on 09/10/18 at 0216. Scribe Documentation Reviewed: Yes Provider Attestation: The documentation as recorded by the vinceibjonathan, Laure Loagn accurately reflects the service I personally performed and the decisions made by Martinez valentin MD. Status of Scribe Document: Viewed
[2018-09-10] MEDS ORDERED: Albuterol 2.5 MG/3 ML NEB.SOL* (0.083%) INH PRN (01:23)
[2018-09-10] MEDS ORDERED: Lidocaine PATCH 5%* 1 PATCH TRANSDERM PRN (02:32)
[2018-09-10] MEDS ORDERED: Levalbuterol HFA INHALER* 1 PUFF MDI INH PRN (02:32)
[2018-09-10] MEDS ORDERED: Ondansetron INJ* 2 MG/ML VIAL IV PRN (02:34)
[2018-09-10] MEDS ORDERED: Heparin VIAL(*) 5000 UNITS/ML VIAL (FIVE THOUSAND) SUBCUT SCH (06:00)
--- NOTE | 2018-09-10 06:15 | HP ---
CC: Dr. Thompson * HISTORY AND PHYSICAL: DATE OF ADMISSION: 09/10/18 TIME OF ADMISSION: 2:15 a.m. CHIEF COMPLAINT: Abdominal pain. HISTORY OF PRESENT ILLNESS: This is an 88-year-old female with history of chronic pain syndrome, COPD, AFib, on anticoagulation and diastolic heart failure, who presents to the emergency department with 1 day of abdominal pain. The pain began and started gradually. She has trouble describing it and states it was "just an awful pain." She localizes it to entire her abdomen , but it has been worse in the left side. It is currently gone, but she cannot name what makes it come and go. Nothing in particular makes it worse and nothing makes it better. She has had poor appetite. She notes she has been constipated. She has had no diarrhea and no fevers. She has been nauseous, but had no vomiting. She has never had anything like this before. In the ED, she was found to have an ileus versus partial small bowel obstruction , so we were asked to evaluate for admission. Surgery has already been contacted. Regarding risk factors for an SBO versus ileus, she states in the 1970, she had part of her stomach removed for a bleeding ulcer. She has had no other intraabdominal surgeries. She also takes large doses of narcotics for chronic pain as well as Lyrica. PAST MEDICAL HISTORY: 1. COPD, on 3 L of home O2 at night and as needed through the day. 2. Atrial fibrillation, on warfarin. 3. Diastolic/valvular heart failure. 4. Anxiety. 5. Chronic pain syndrome. 6. Neuropathy, which she thinks is resolved with back operation. HOME MEDICATIONS: 1. Calcium carbonate 500 mg daily. 2. FiberCon 625 mg b.i.d. 3. Vitamin D 800 mg daily. 4. Flexeril 5 to 10 mg q.h.s. p.r.n. spasm. 5. Colace 2 caps daily. 6. Fexofenadine 180 mg daily. 7. Atrovent 1 vial inhaled q.4 p.r.n. wheezing. 8. Levothyroxine 12.5 mg daily. 9. Lorazepam 0.5 mg q.h.s. p.r.n. insomnia. 10. Amitiza 24 mcg p.o. b.i.d. 11. Toprol-XL 25 mg daily. 12. Nitro 0.4 mg sublingual q.5 minutes p.r.n. chest pain. 13. Omeprazole 20 mg b.i.d. 14. Oxycodone 20 mg q.4 p.r.n. pain. 15. Oxymorphone 15 mg b.i.d. p.r.n. pain. 16. MiraLAX 17 g daily. 17. Lyrica 50 mg q.i.d. a.c. h.s. 18. Zantac 150 mg daily. 19. Actonel 35 mg weekly. 20. Simethicone 80 mg q.6 p.r.n. gas. 21. Spironolactone 25 mg daily. 22. Torsemide 40 mg daily. 23. Trazodone 25 mg q.h.s. 24. Warfarin 2.5 mg daily. 25. DuoNeb t.i.d. p.r.n. 26. Xopenex q.i.d. p.r.n. 27. Lidocaine patch 1 patch transdermally daily. 28. Spiriva 1 cap inhaled daily. SOCIAL HISTORY: She lives alone. She states she gets around okay by herself. She does not smoke, drink, or use drugs. Her healthcare proxy is either her son , Jake or her daughter, Glenny. REVIEW OF SYSTEMS: As per the HPI. Remainder of the 14-point review of systems is negative. PHYSICAL EXAMINATION GENERAL: Elderly female, in no distress. She is asleep and awakens to my voice. VITAL SIGNS: Temperature 96.1, heart rate 58, respiratory rate 16, pulse ox 100 % on 2 L, blood pressure 105/51. HEENT: Pupils equal, round, reactive to light. Oral mucosa is moist. NECK: Reveals prominent and distended external jugular veins. No JVP. LUNGS: Clear bilaterally. CHEST: She is in a regular rate and rhythm. She has a systolic murmur. ABDOMEN: Distended. Has hypoactive bowel sounds throughout. She is tender to deep palpation with no guarding, worse on the left over the right. No CVA tenderness. EXTREMITIES: She has beefy red shins with a few excoriations, but no ulcers or sores and no drainage. DIAGNOSTIC STUDIES/LAB DATA: White blood cells 5.1, hemoglobin 9.1, platelets 95. Sodium 137, potassium 3.8, chloride 101, BUN 48, creatinine 1.55. Magnesium 1.6, alk phos 130, CRP 40.5. Urinalysis is unremarkable. Imaging: A venous Doppler study shows no evidence of right or left lower extremity DVT and subcutaneous edema. Abdomen and pelvis CT shows stable small hiatal hernia, stable punctate nonobstructive right nephrolithiasis, stable postoperative changes of cholecystectomy with stable significant intrahepatic and extrahepatic dilation, but no visible obstructing calculus. As seen previously, there are mildly prominent small bowel loops with oral contrast progressed to the level of distal ileum, cannot exclude some degree of small bowel obstruction or ileus. As previously seen, there are significant stool volumes throughout the colon and rectum. There is mild wall thickening in the lower rectum, cannot exclude proctitis. There is a 2.6 cm right inguinal hernia containing a short segment of distal bowel SBO at this level or other evidence for incarceration. ASSESSMENT AND PLAN: This is an 88-year-old female with history of chronic pain syndrome, on narcotics as well as history of abdominal surgeries presenting with abdominal pain and was found to have ileus versus small bowel obstruction on her CT. 1. Ileus versus partial small bowel obstruction. She has risk factors for both and at this point, I treated the same way with conservative measures. She is not vomiting and her nausea is at bay, so we will hold off on an NG tube, but should she develop further nausea and/or vomiting, an NG tube will be warranted. Surgery has been consulted. Hopefully, we can manage her conservatively. Her electrolytes are within normal limits. I am giving her IV fluid resuscitation and holding her diuretics and antihypertensives. Two lactic acids have been normal. I am keeping her n.p.o. including holding all of her home medications. 2. Chronic pain syndrome. Certainly, I think her narcotics may be contributing to her ileus; however, in this acute setting, I am concerned about inadequate pain control while her p.o. meds are on hold. I am consulting pain management for help with acute pain while she is n.p.o. and especially should she need to undergo operative management. 3. Atrial fibrillation, on warfarin. Hold rate control and warfarin for now and check INR in the morning. 4. Thrombocytopenia. She has been chronically thrombocytopenic. I am not exactly sure why this is. She is on many medications and I suspect some of them may have a side effect of thrombocytopenia. She has no evidence of bleeding. She has no splenomegaly on her CT scan. PPIs can certainly do it as her other medications that she is taking. 5. Anemia. Her hemoglobin is at baseline and again she has no evidence of bleeding. 6. Chronic hypoxic respiratory failure. She has no evidence of decompensation an is on her home O2 requirement. 7. Diastolic/valvular heart failure. I am holding her heart failure meds while she is n.p.o. 8. Bilateral lower extremity erythema. I suspect this is venous stasis and I will hold off on antibiotics for now unless she spikes a fever or develops a white count. 9. Anxiety. Hold her p.o. meds and order p.r.n. IV lorazepam. 10. Disposition. Admit to [address] [place] [address] on the medicine service with a surgery consult, n.p.o. [id number]/[facility] #: [id number] PORTER
[2018-09-10] MEDS: Morphine INJ* 2 MG/ML 1 ML SYRINGE (TWO MG - NEW SYRINGE VERSION) IV PRN ×3 (06:39→16:47)
[2018-09-10 07:11] LABS: INR 4.38 (0.77-1.02)
[2018-09-10] MEDS: Tiotropium CAP.INH* CAP.INH/18 MCG (USE ORDER SET !) INH SCH (07:48)
[2018-09-10] MEDS: NS 0.9% 1000 ML** 1,000 ML IV SCH ×2 (08:19→22:41)
[2018-09-10] MEDS ORDERED: Spiriva Inhaler DEVICE* 1 EACH DEVICE INH ONE (09:00)
[2018-09-10] MEDS ORDERED: LORazepam TAB(*) 0.5 MG PO PRN (17:20)
[2018-09-10] MEDS ORDERED: Polyethylene Glycol 3350* 17 GM PACKET PO PRN (17:20)
[2018-09-10] MEDS ORDERED: Docusate CAP* 100 MG PO PRN (17:20)
[2018-09-10] MEDS ORDERED: Magnesium Sulfate 2 GM IV* 2 GM/50 ML BAG IVPB ONE (17:28)
[2018-09-10] MEDS ORDERED: Potassium Chlor TAB* 20 MEQ TAB.ER PO ONE (17:28)
--- NOTE | 2018-09-10 17:34 | PN ---
Subjective Date of Service: 09/10/18 Interval History: Patient seen awake, complaining of increase pain of her leg and pain more than her abdomen. She has been NPO and on PRN Morphine, No vomiting. No bowel movement and does not think she is passing flatus. Staff has been calling on her behalf due to increase leg and back pain. no complains or reported abdominal pain except when I asked her about it. Otherwise no acute events Past Medical History: Unchanged from Admission Objective Active Medications: Albuterol (Ventolin 2.5 Mg/3 Ml Neb.Stacie*) 2.5 mg INH [id number] AWAKE PRN PRN Reason: sob/wheezing Albuterol/Ipratropium (Duoneb (Albuterol 2.5 Mg/Ipratropium 0.5 Mg)) 1 neb INH TID PRN PRN Reason: SOB/WHEEZING Docusate Sodium (Colace Cap*) 200 mg PO DAILY PRN PRN Reason: CONSTIPATION Sodium Chloride (Ns 0.9% 1000 Ml) 1,000 mls @ 75 mls/hr IV PER RATE REPLACED BY [facility] Last Admin: 09/10/18 08:19 Dose: 75 mls/hr Magnesium Sulfate (Magnesium Sulfate 2 Gm Iv*) 2 gm in 50 mls @ 50 mls/hr IVPB ONCE ONE Stop: 09/10/18 18:27 Levalbuterol HCl (Xopenex Hfa Inhaler*) 1 puff INH QID PRN PRN Reason: SHORTNESS OF BREATH Levothyroxine Sodium (Synthroid Tab*) 12.5 mcg PO DAILY REPLACED BY [facility] Lidocaine (Lidoderm 5% Patch*) 1 patch TRANSDERM DAILY PRN PRN Reason: PAIN Lorazepam (Ativan Tab(*)) 0.5 mg PO BEDTIME PRN PRN Reason: SLEEP Metoprolol Succinate (Toprol Xl Tab*) 25 mg PO DAILY REPLACED BY [facility] Morphine Sulfate (Morphine Inj ((Syringe))*) 4 mg IV Q4H PRN PRN Reason: PAIN - MILD Last Admin: 09/10/18 16:47 Dose: 4 mg Omeprazole (Prilosec Cap*) 20 mg PO BID REPLACED BY [facility] Ondansetron HCl (Zofran Inj*) 4 mg IV Q4H PRN PRN Reason: NAUSEA Oxycodone/Acetaminophen (Percocet 5/325 Tab*) 1 tab PO Q4H PRN PRN Reason: PAIN Polyethylene Glycol/Electrolytes (Miralax*) 17 gm PO DAILY PRN PRN Reason: CONSTIPATION Potassium Chloride (Klor Con Er Tab*) 40 meq PO ONCE ONE Stop: 09/10/18 17:29 Pregabalin (Lyrica Cap(*)) 50 mg PO QID ACHS [facility] Tiotropium [place] (Spiriva Cap.Inh*) 1 cap INH DAILY [facility] Last Admin: 09/10/18 07:48 Dose: 1 cap Trazodone HCl (Desyrel Tab*) 25 mg PO BEDTIME [facility] Vital Signs - 8 hr 09/10/18 09/10/18 09/10/18 11:09 12:09 16:41 Temperature 97.7 F Pulse Rate 81 Respiratory 16 16 14 Rate Blood Pressure 100/54 (mmHg) O2 Sat by Pulse 100 Oximetry 09/10/18 16:47 Temperature Pulse Rate Respiratory 16 Rate Blood Pressure (mmHg) O2 Sat by Pulse Oximetry Oxygen Devices in Use Now: Nasal Cannula Appearance: Awake, alert. no distress. Eyes: No Scleral Icterus Ears/Nose/Mouth/Throat: NL Teeth, Lips, Gums, - - dry oral mucosa Neck: NL Appearance and Movements; NL JVP Respiratory: Symmetrical Chest Expansion and Respiratory Effort Cardiovascular: NL Sounds; No Murmurs; No JVD, - - +2 edmea, erythema bilateral Abdominal: - - Ventral hernia, right side, voluntary guarding no rebound, tenderness LLQ. Bowel sound presents, Soft and non tender Skin: - - erythema both leg mid tibial to ankle bilateral and warm Result Diagrams: 09/09/18 18:27 09/09/18 18:27 Assess/Plan/Problems-Billing Assessment: 88 year old male presented for abdominal pain, CT scan in ER was not impressive ? ileus and clinical exam today is unremarkable. She does have erythema of both leg with no WBC or fever. - Patient Problems (1) Abdominal pain Current Visit: Yes Status: Acute Code(s): R10.9 - UNSPECIFIED ABDOMINAL PAIN SNOMED Code(s): 04244949 Comment: - Clinically she is not in acute pain from abdominal pain. She is requesting pain medication due to her leg pain - Exam is benign, soft abdomen, not rigid and positive bowel sounds - Will advance to clear liquid. assess for flatus and BM. NGT if needed (2) A-fib Current Visit: No Status: Acute Code(s): I48.91 - UNSPECIFIED ATRIAL FIBRILLATION SNOMED Code(s): 03975900 Comment: - Continue toprol. rate controlled - Held warfarin due to elevated INR - Recheck INR in am (3) Leg edema Current Visit: No Status: Acute Code(s): R60.0 - LOCALIZED EDEMA SNOMED Code(s): 558238942 Comment: - chronic pedal edema, US negative for DVT - She does have erythema but probably chronic due venous stasis. without fever and leukocytosis I will defer antibiotic for now. I will reasess in am and see if the erythema does expand than will reconsider the antibiotic option (4) Supratherapeutic INR Current Visit: No Status: Acute Code(s): R79.1 - ABNORMAL COAGULATION PROFILE SNOMED Code(s): 753374561 Comment: - Warfarin on hold and recheck in am (5) Chronic leg pain Current Visit: No Status: Chronic Priority: Medium Code(s): M79.606 - PAIN IN LEG, UNSPECIFIED; G89.29 - OTHER CHRONIC PAIN SNOMED Code(s): 24177653 Comment: - She is dependant on opiate. - Currently on morphine IV prn. I will resume oxycdone but will decrease from 20 mg at home to 5 mg Q6hrs. I explained to her that opiate is most likely the cause of her constipation and ileus. - She was not very happy to hear that I will cut back on the opiate. Will try it tonight and will see how she accepts it overnight. Will keep the prn IV morphine for severe pain (6) Peripheral neuropathy Current Visit: No Status: Chronic Priority: Medium Code(s): G62.9 - POLYNEUROPATHY, UNSPECIFIED SNOMED Code(s): 972904990 Comment: - She is dependant on opiate. - Currently on morphine IV prn. I will resume oxycdone but will decrease from 20 mg at home to 5 mg Q6hrs. I explained to her that opiate is most likely the cause of her constipation and ileus. - She was not very happy to hear that I will cut back on the opiate. Will try it tonight and will see how she accepts it overnight. Will keep the prn IV morphine for severe pain - Will resume lyrica but will adjust to bid for renal dose (7) Anxiety Current Visit: Yes Status: Acute Code(s): F41.9 - ANXIETY DISORDER, UNSPECIFIED SNOMED Code(s): 68747113 Comment: - Trazodone and ativan prn (8) Chronic diastolic (congestive) heart failure Current Visit: No Status: Chronic Code(s): I50.32 - CHRONIC DIASTOLIC ( CONGESTIVE) HEART FAILURE SNOMED Code(s): 156918686 Comment: - chronic stable in no distress (9) DVT prophylaxis Current Visit: No Status: Acute Onset Date: 10/14/14 Code(s): YLH6266 - SNOMED Code(s): 732122134 Comment: - On warfarin with elevated IRN. Need to resume coumadin once INR normalized
[2018-09-10] MEDS ORDERED: traZODone TAB* 50 MG TAB PO SCH (21:00)
[2018-09-10] MEDS: Pantoprazole TAB * 40 MG TAB PO SCH (21:40)
[2018-09-10] MEDS: Pregabalin CAP(*) 50 MG PO SCH (21:40)
[2018-09-10] MEDS: oxyCODONE/Acetamin 5/325 MG* TAB PO PRN (23:19)
[2018-09-11] MEDS: oxyCODONE/Acetamin 5/325 MG* TAB PO PRN ×4 (03:51→20:01)
[2018-09-11] MEDS: Levothyroxine TAB* 25 MCG TAB PO SCH (06:04)
[2018-09-11 06:51] LABS: ABS Basophils 0 10^3/ul (0-0.2); ABS Eosinophils 0.1 10^3/ul (0-0.6); ABS Lymphocytes 1.6 10^3/ul (1.0-4.8); ABS Monocytes 0.5 10^3/ul (0-0.8); ABS Neutrophils 1.3 10^3/ul (1.5-7.7); ABS Nucleated RBC 0 10^3/ul; Eosinophil % 1.9 %; Hematocrit 26 % (35-47); Hemoglobin 8.1 g/dl (12.0-16.0); Lymphocyte % 45.3 %; Mean Corpuscular HGB Conc 31 g/dl (31-36); Mean Corpuscular Hemoglobin 27 pg (27-31); Mean Corpuscular Volume 86 fL (80-97); Mean Platelet Volume 8.2 fL (7.4-10.4); Nucleated Red Blood Cells % 0.2; Platelet Count 101 10^3/ul (150-450); Red Blood Count 2.98 10^6/ul (4.00-5.40); Red Cell Distribution Width 20 % (10.5-15); White Blood Count 3.4 10^3/ul (3.5-10.8)
[2018-09-11 06:57] LABS: INR 4.43 (0.77-1.02)
[2018-09-11 07:08] LABS: ALT 10 U/L (7-52); AST 12 U/L (13-39); Albumin 2.5 g/dL (3.2-5.2); Alkaline Phosphatase 109 U/L (34-104); Amylase 20 U/L (29-103); Anion Gap 2 mmol/L (2-11); BUN/Creatinine Ratio 31.6 (8-20); Blood Urea Nitrogen 30 mg/dL (6-24); CO2 Carbon Dioxide 31 mmol/L (22-32); Calcium 7.9 mg/dL (8.6-10.3); Chloride 106 mmol/L (101-111); EGFR African American 67.2 (>60); EGFR Non-African American 55.5 (>60); Globulin 2.6 g/dL (2-4); Glucose 98 mg/dL (70-100); Indirect Bilirubin 0.4 mg/dL (0.3-1.0); Phosphorus 2.4 mg/dL (2.5-5.0); Potassium 4.2 mmol/L (3.5-5.0); Sodium 139 mmol/L (135-145); Total Protein 5.1 g/dL (6.4-8.9)
[2018-09-11] MEDS: Morphine INJ* 2 MG/ML 1 ML SYRINGE (TWO MG - NEW SYRINGE VERSION) IV PRN ×2 (07:33→11:29)
[2018-09-11] MEDS: Metoprolol Succinate XL TAB* 25 MG PO SCH (07:34)
[2018-09-11] MEDS: Pregabalin CAP(*) 50 MG PO SCH ×2 (07:34→20:02)
[2018-09-11] MEDS: Pantoprazole TAB * 40 MG TAB PO SCH ×2 (07:34→20:02)
[2018-09-11] MEDS: Potassium & Sodium Phos 250MG* = 1 PACKET PO SCH ×2 (09:29→19:59)
[2018-09-11] MEDS: Tiotropium CAP.INH* CAP.INH/18 MCG (USE ORDER SET !) INH SCH (10:22)
[2018-09-11] MEDS: NS 0.9% 1000 ML** 1,000 ML IV SCH (12:03)
--- NOTE | 2018-09-11 16:55 | PN ---
Subjective Date of Service: 09/11/18 Interval History: Patient seen this morning. appeared resting reading newspaper. When asked about any complains or discomfort she only report increase in her leg pain. She did have bowel movement and denies any significant abdominal pain or discomfort. She is on clear tolerating well and no nausea or vomiting Past Medical History: Unchanged from Admission Objective Active Medications: Albuterol (Ventolin 2.5 Mg/3 Ml Neb.Stacie*) 2.5 mg INH [id number] AWAKE PRN PRN Reason: sob/wheezing Albuterol/Ipratropium (Duoneb (Albuterol 2.5 Mg/Ipratropium 0.5 Mg)) 1 neb INH TID PRN PRN Reason: SOB/WHEEZING Docusate Sodium (Colace Cap*) 200 mg PO DAILY PRN PRN Reason: CONSTIPATION Duloxetine HCl (Cymbalta Cap*) 20 mg PO DAILY [facility] Sodium Chloride (Ns 0.9% 1000 Ml) 1,000 mls @ 75 mls/hr IV PER RATE [facility] Last Admin: 09/11/18 12:03 Dose: 75 mls/hr Levalbuterol HCl (Xopenex Hfa Inhaler*) 1 puff INH QID PRN PRN Reason: SHORTNESS OF BREATH Levothyroxine Sodium (Synthroid Tab*) 12.5 mcg PO DAILY@0600 [facility] Last Admin: 09/11/18 06:04 Dose: 12.5 mcg Lidocaine (Lidoderm 5% Patch*) 1 patch TRANSDERM DAILY PRN PRN Reason: PAIN Lorazepam (Ativan Tab(*)) 0.5 mg PO BEDTIME PRN PRN Reason: SLEEP Metoprolol Succinate (Toprol Xl Tab*) 25 mg PO DAILY [facility] Last Admin: 09/11/18 07:34 Dose: 25 mg Nortriptyline HCl (Pamelor Cap*) 20 mg PO BEDTIME [facility] Ondansetron HCl (Zofran Inj*) 4 mg IV Q4H PRN PRN Reason: NAUSEA Oxycodone/Acetaminophen (Percocet 5/325 Tab*) 1 tab PO Q4H PRN PRN Reason: PAIN Last Admin: 09/11/18 13:46 Dose: 1 tab Pantoprazole Sodium (Protonix Tab*) 40 mg PO BID [facility] Last Admin: 09/11/18 07:34 Dose: 40 mg Polyethylene Glycol/Electrolytes (Miralax*) 17 gm PO DAILY PRN PRN Reason: CONSTIPATION Potassium Phos/Sodium Phos (Neutra Phos 250 Mg [place]*) 250 mg PO BID [facility] Stop: 09/14/18 08:59 Last Admin: 09/11/18 09:29 Dose: 250 mg Pregabalin (Lyrica Cap(*)) 50 mg PO BID [facility] Last Admin: 09/11/18 07:34 Dose: 50 mg Tiotropium [place] (Spiriva Cap.Inh*) 1 cap INH DAILY [facility] Last Admin: 09/11/18 10:22 Dose: 1 cap Trazodone HCl (Desyrel Tab*) 50 mg PO BEDTIME [facility] Vital Signs - 8 hr 09/11/18 09/11/18 09/11/18 09:29 10:25 10:26 Temperature Pulse Rate 63 Respiratory 17 18 18 Rate Blood Pressure (mmHg) O2 Sat by Pulse 97 Oximetry 09/11/18 09/11/18 09/11/18 11:29 11:39 11:43 Temperature 97.5 F Pulse Rate 64 Respiratory 18 18 Rate Blood Pressure 112/52 (mmHg) O2 Sat by Pulse 99 Oximetry 09/11/18 09/11/18 09/11/18 12:07 13:46 14:33 Temperature Pulse Rate Respiratory 16 16 16 Rate Blood Pressure (mmHg) O2 Sat by Pulse Oximetry 09/11/18 09/11/18 16:27 16:28 Temperature 96.8 F 98.0 F Pulse Rate 54 66 Respiratory 16 16 Rate Blood Pressure 129/49 (mmHg) O2 Sat by Pulse 100 Oximetry Oxygen Devices in Use Now: Nasal Cannula Appearance: Awake, alert. obese. in no distress Eyes: No Scleral Icterus, - - EMOI Ears/Nose/Mouth/Throat: NL Teeth, Lips, Gums, Clear Oropharnyx Neck: NL Appearance and Movements; NL JVP, Trachea Midline Respiratory: Symmetrical Chest Expansion and Respiratory Effort, Clear to Auscultation Cardiovascular: NL Sounds; No Murmurs; No JVD, - - irregularly irregular Abdominal: NL Sounds; No Tenderness; No Distention Extremities: - - edema and erythema. Result Diagrams: 09/11/18 06:43 09/11/18 06:43 Microbiology and Other Data: Microbiology 09/09/18 18:32 Aerobic Blood Culture - Preliminary Blood Venous No Growth Day 1 Anaerobic Blood Culture - Preliminary No Growth Day 1 09/09/18 18:26 Aerobic Blood Culture - Preliminary Blood Venous No Growth Day 1 Anaerobic Blood Culture - Preliminary No Growth Day 1 Assess/Plan/Problems-Billing Assessment: 88 year old male presented for abdominal pain, CT scan in ER was not impressive ? ileus and clinical exam today is unremarkable. She does have erythema of both leg with no WBC or fever. - Patient Problems (1) Abdominal pain Current Visit: Yes Status: Acute Code(s): R10.9 - UNSPECIFIED ABDOMINAL PAIN SNOMED Code(s): 84813874 Comment: - Clinically she is not in acute pain from abdominal pain. She is requesting pain medication due to her leg pain - Exam is benign, soft abdomen, not rigid and positive bowel sounds - tolerating clear liquid, passed bowel movement. Will continue on clear tomorrow will advance to full liquid. (2) A-fib Current Visit: No Status: Acute Code(s): I48.91 - UNSPECIFIED ATRIAL FIBRILLATION SNOMED Code(s): 22962794 Comment: - Continue toprol. rate controlled - Held warfarin due to elevated INR - Recheck INR in am (3) Leg edema Current Visit: No Status: Acute Code(s): R60.0 - LOCALIZED EDEMA SNOMED Code(s): 065755873 Comment: - chronic pedal edema, US negative for DVT - She does have erythema but probably chronic due venous stasis. without fever and leukocytosis I will defer antibiotic for now. She is not having any increase erythema today. she remains afebrile. no WBC. will reasess in am (4) Supratherapeutic INR Current Visit: No Status: Acute Code(s): R79.1 - ABNORMAL COAGULATION PROFILE SNOMED Code(s): 023982663 Comment: - Warfarin on hold and recheck in am (5) Chronic leg pain Current Visit: No Status: Chronic Priority: Medium Code(s): M79.606 - PAIN IN LEG, UNSPECIFIED; G89.29 - OTHER CHRONIC PAIN SNOMED Code(s): 92177025 Comment: - She is dependant on opiate. - Currently on morphine IV prn I will discontinue. I did resume oxycdone but IU decreased to from 20 mg at home to 5 mg Q6hrs. I explained to her that opiate is most likely the cause of her constipation and ileus. - I will resume lyrica 50 mg bid. I will add cymbalta 20 mg and nortriptyline 20 mg HS. I will increase trazodone to 50 mg HS to help with sleep (6) Peripheral neuropathy Current Visit: No Status: Chronic Priority: Medium Code(s): G62.9 - POLYNEUROPATHY, UNSPECIFIED SNOMED Code(s): 333338837 Comment: - She is dependant on opiate. - Currently on morphine IV prn I will discontinue. I did resume oxycdone but IU decreased to from 20 mg at home to 5 mg Q6hrs. I explained to her that opiate is most likely the cause of her constipation and ileus. - I will resume lyrica 50 mg bid. I will add cymbalta 20 mg and nortriptyline 20 mg HS. I will increase trazodone to 50 mg HS to help with sleep (7) Anxiety Current Visit: Yes Status: Acute Code(s): F41.9 - ANXIETY DISORDER, UNSPECIFIED SNOMED Code(s): 62660140 Comment: - Trazodone and ativan prn (8) Chronic diastolic (congestive) heart failure Current Visit: No Status: Chronic Code(s): I50.32 - CHRONIC DIASTOLIC ( CONGESTIVE) HEART FAILURE SNOMED Code(s): 552606203 Comment: - chronic stable in no distress (9) DVT prophylaxis Current Visit: No Status: Acute Onset Date: 10/14/14 Code(s): UFC9855 - SNOMED Code(s): 283592067 Comment: - On warfarin with elevated IRN. Need to resume coumadin once INR normalized
[2018-09-11] MEDS: DULoxetine DR CAP* 20 MG CAP.DR PO SCH (17:00)
[2018-09-11] MEDS: traZODone TAB* 50 MG TAB PO SCH (20:02)
[2018-09-11] MEDS ORDERED: Nortriptyline CAP* 10 MG PO SCH (21:00)
[2018-09-12] MEDS: NS 0.9% 1000 ML** 1,000 ML IV SCH (01:48)
[2018-09-12] MEDS: oxyCODONE/Acetamin 5/325 MG* TAB PO PRN ×4 (02:12→16:32)
[2018-09-12] MEDS: Levothyroxine TAB* 25 MCG TAB PO SCH (06:10)
[2018-09-12 06:59] LABS: ABS Basophils 0.1 10^3/ul (0-0.2); ABS Eosinophils 0.1 10^3/ul (0-0.6); ABS Lymphocytes 1.5 10^3/ul (1.0-4.8); ABS Monocytes 0.4 10^3/ul (0-0.8); ABS Neutrophils 1.1 10^3/ul (1.5-7.7); ABS Nucleated RBC 0 10^3/ul; Eosinophil % 2.4 %; Hematocrit 30 % (35-47); Hemoglobin 9.1 g/dl (12.0-16.0); Lymphocyte % 48.9 %; Mean Corpuscular HGB Conc 31 g/dl (31-36); Mean Corpuscular Hemoglobin 27 pg (27-31); Mean Corpuscular Volume 88 fL (80-97); Mean Platelet Volume 8.5 fL (7.4-10.4); Nucleated Red Blood Cells % 0.1; Platelet Count 102 10^3/ul (150-450); Red Blood Count 3.41 10^6/ul (4.00-5.40); Red Cell Distribution Width 20 % (10.5-15); White Blood Count 3.1 10^3/ul (3.5-10.8)
[2018-09-12 07:09] LABS: INR 3.81 (0.77-1.02)
[2018-09-12 07:14] LABS: BUN/Creatinine Ratio 25.3 (8-20); Calcium 8.1 mg/dL (8.6-10.3); EGFR African American 78.5 (>60); EGFR Non-African American 64.9 (>60); Magnesium 1.7 mg/dL (1.9-2.7); Phosphorus 2.8 mg/dL (2.5-5.0); Potassium 4.4 mmol/L (3.5-5.0)
[2018-09-12] MEDS: Potassium & Sodium Phos 250MG* = 1 PACKET PO SCH ×2 (07:25→21:48)
[2018-09-12] MEDS: DULoxetine DR CAP* 20 MG CAP.DR PO SCH (07:25)
[2018-09-12] MEDS: Pregabalin CAP(*) 50 MG PO SCH ×2 (07:25→21:47)
[2018-09-12] MEDS: Pantoprazole TAB * 40 MG TAB PO SCH ×2 (07:25→21:47)
[2018-09-12] MEDS: Metoprolol Succinate XL TAB* 25 MG PO SCH (07:25)
[2018-09-12] MEDS: Tiotropium CAP.INH* CAP.INH/18 MCG (USE ORDER SET !) INH SCH (07:52)
[2018-09-12] MEDS: Magnesium Oxide TAB* 400 MG PO SCH (09:00)
[2018-09-12] MEDS: Albuterol/Ipratropium NEB.SOL* Albuterol 2.5 MG/Ipratropium 0.5 MG 3 ML INH PRN (16:41)
[2018-09-12] MEDS: traZODone TAB* 50 MG TAB PO SCH (21:47)
--- NOTE | 2018-09-13 00:07 | DS ---
CC: Dr. Thompson * DISCHARGE SUMMARY: DATE OF ADMISSION: 09/09/18 DATE OF DISCHARGE: 09/12/18 FINAL DISCHARGE DIAGNOSES: 1. Abdominal pain secondary to ileus and constipation. 2. Anxiety disorder. 3. Chronic pain syndrome, on chronic opiate therapy. 4. Chronic kidney disease. 5. Chronic diastolic heart failure. 6. Hypertension. 7. Coumadin toxicity with supratherapeutic INR. 8. Hypothyroidism. 9. Peripheral neuropathy. HOSPITAL COURSE: The patient presented to the hospital on 09/09/18, to the emergency room, was admitted to the medical service for abdominal pain, nonspecific, described as just "awful pain," associated with poor appetite. In the emergency room, the patient was evaluated and underwent diagnostic study, which were fairly unremarkable in terms white count and hemoglobin of 9.1, which is chronic for the patient. Baseline renal insufficiency, with creatinine of 1.5. CT scan did show questionable ileus versus bowel obstruction. I did evaluate the patient in the morning. On my exam, she had a completely benign abdominal exam, good bowel sound, and passing flatus. I placed her on clear liquid. I did not see the benefits of any surgical intervention at this time nor NG tube placement. I had a long discussion with the patient regarding her condition and possible opiate therapy. She was claiming and listing on her medication of oxycodone 20 mg every 4 hours along with oxymorphone. I explained that her ileus and constipation are probably due to opiate therapy. I did advice weaning and withholding. Her oxymorphone was never resumed on admission, which I kept it on hold. She was on IV morphine, I took her off and I placed her on Percocet 5/325 q.6 p.r.n. I did recommend physical therapy and out of bed to chair for which the patient verbalized to me and said she does not need a therapy, she does not need to be placed. She is just in a lot of pain and everything is hurting. I kept her overnight, an additional day, and I saw her on the 09/11/18. I did discuss with her again the pain issue. I did advice her to start some other non-opiate therapy, recommended Cymbalta and nortriptyline. I put her on her medication list yesterday. I saw her this morning. She seems to be doing well. I got her out of the bed myself. She walked with a walker with the nurse in the room. She did walk more than 50 feet independently and was able to put her back in the bed and she is starting having her tray without any difficulty. The patient was reluctant to be released at once. She stated it is because she feels awful abdominal pain and yet she did have a bowel movement and tolerating p.o. diet and her exam was unremarkable. Then she mentioned her weakness and inability to walk. I was able to have her ambulate with a walker independently. She finally stated that she does not have a ride. I spoke with the protective services social worker and they did offer her a cab ride if there is no family member. Therefore, after several discussion and meeting with the patient, I do physically deem her stable for discharge. She needs just to cut back on her opiate therapy, which improved her stability, her gait, and her GI dysmotility. PHYSICAL EXAM ON DISCHARGE: Temperature 97.7. She had no fever. Pulse is 64, respiratory rate 16, saturating 99% on room air, blood pressure 126/84. Generally, she is awake, alert, oriented, flat affect. She avoids eye contact. She is not very pleased being discharged. Head and Neck: Normocephalic, atraumatic. Supple neck. Lungs: Good air flow bilaterally. Abdomen: Positive bowel sounds, soft. No rebound. She does have voluntary guarding, but no involuntary guarding. Extremities: She does have varicose vein and edema. She does have minimal erythema today compared to her admission. It is subsided by leg elevation and, I believe, also by decreasing the amount of Lyrica she was taking. IMAGING STUDIES: She had a CT scan of the abdomen and pelvis, which showed small hiatal hernia, non-obstructive right nephrolithiasis, postoperative change with cholecystectomy, no intra or extrahepatic dilation, mildly prominent small bowel loop, but the contrast has progressed all the way to the distal ileum and there is stool throughout the colon and rectum and an inguinal hernia with bowel, without evidence of obstruction. DIAGNOSTIC STUDIES: Hematocrit is 29 on admission, 30 on discharge. White count 5.1 on admission, 3.1 on discharge. Chemistry: Magnesium 1.7, supplemented; potassium fairly normal. DISCHARGE MEDICATIONS: There was some alteration of her medication at my recommendation and further refill will be based on the PCP's discretion. Continue home meds as follow: 1. Albuterol. 2. Tums as needed. 3. Vitamin D 800 daily. 4. Flexeril 10 mg as needed twice a day. 5. Colace 200 mg daily. 6. Aracelis 180 daily. 7. Atrovent as needed. 8. Xopenex, listed as per home medication, further clarify with her PCP, but she was advised to continue. 9. Levothyroxine 12.5 mcg daily. 10. Lidocaine patch. 11. Metoprolol XL 25 daily. 12. Nitroglycerin p.r.n. 13. Omeprazole 20 b.i.d. 14. MiraLAX 17 g daily. 15. Zantac 150 every morning. 16. Actonel 35 mg once a week. 17. Simethicone 80 mg every 6 hours p.r.n. 18. Spironolactone 25 mg daily. 19. Spiriva 18 mcg daily. 20. Torsemide 40 mg daily. New medications on discharge: 1. Cymbalta 20 mg daily for her peripheral neuropathy. 2. Ativan continue 0.5 at bedtime. 3. Mag oxide, new prescription, 400 b.i.d. 4. Oxycodone, she was advised to cut back from 20 mg as listed, down to 5 mg every 6 hours. 5. Lyrica was advised to cut back from 50, 4 times a day, to 50 b.i.d. given her renal function, which recommends to dose it as a b.i.d. drug, and given the leg edema, I cut back to 50 b.i.d. with the hope that the Cymbalta will be able to substitute for some of the analgesic that was provided by the extra Lyrica and that Cymbalta could be titrated upward or downward. 6. Trazodone 25 at bedtime. 7. Coumadin, she was listing it as 2.5 mg daily. Her INR was subtherapeutic on presentation at 4.38. It was held since admission on 09/09/18 and today it is still 3.8, elevated. Therefore, I told her not to take the Coumadin when she goes home this evening. Check with her PCP in the morning for further instruction on when to do her INR as outpatient and what is the next regimen. FOLLOWUP APPOINTMENT: The patient is to follow up with her primary care provider, Dr. Thompson, in 1 week. Take all medications as prescribed. I did recommend to decrease Lyrica to 50 b.i.d. from 4 times daily for renal adjustment. I started Cymbalta 20 mg daily. Decrease oxycodone from 20 mg to 5 mg q.6 given her GI dysmotility and constipation and during the past 3 days, the patient was not getting her oxymorphone as she states she has not been taking it even at home. [id number]/[facility] [place] #: [id number] MTDD
[2018-09-13] MEDS: oxyCODONE/Acetamin 5/325 MG* TAB PO PRN ×2 (01:22→19:04)
[2018-09-13] MEDS: Albuterol/Ipratropium NEB.SOL* Albuterol 2.5 MG/Ipratropium 0.5 MG 3 ML INH PRN (01:56)
[2018-09-13] MEDS: Levothyroxine TAB* 25 MCG TAB PO SCH (05:41)
[2018-09-13] MEDS: Tiotropium CAP.INH* CAP.INH/18 MCG (USE ORDER SET !) INH SCH (08:07)
[2018-09-13] MEDS: Potassium & Sodium Phos 250MG* = 1 PACKET PO SCH ×2 (10:14→21:00)
[2018-09-13] MEDS: Magnesium Oxide TAB* 400 MG PO SCH (10:15)
[2018-09-13] MEDS: DULoxetine DR CAP* 20 MG CAP.DR PO SCH (10:15)
[2018-09-13] MEDS: Metoprolol Succinate XL TAB* 25 MG PO SCH (10:16)
[2018-09-13] MEDS: Pantoprazole TAB * 40 MG TAB PO SCH ×2 (10:16→21:00)
[2018-09-13] MEDS: Pregabalin CAP(*) 50 MG PO SCH ×2 (10:16→21:00)
[2018-09-13] MEDS: traZODone TAB* 50 MG TAB PO SCH (21:00)
[2018-09-14] MEDS: oxyCODONE/Acetamin 5/325 MG* TAB PO PRN ×3 (01:28→18:42)
[2018-09-14] MEDS: Albuterol/Ipratropium NEB.SOL* Albuterol 2.5 MG/Ipratropium 0.5 MG 3 ML INH PRN ×2 (01:42→08:24)
[2018-09-14] MEDS: Levothyroxine TAB* 25 MCG TAB PO SCH (05:52)
[2018-09-14] MEDS: Tiotropium CAP.INH* CAP.INH/18 MCG (USE ORDER SET !) INH SCH (08:30)
[2018-09-14] MEDS: DULoxetine DR CAP* 20 MG CAP.DR PO SCH (08:57)
[2018-09-14] MEDS: Pantoprazole TAB * 40 MG TAB PO SCH ×2 (08:58→19:36)
[2018-09-14] MEDS: Magnesium Oxide TAB* 400 MG PO SCH (08:58)
[2018-09-14] MEDS: Pregabalin CAP(*) 50 MG PO SCH ×2 (08:58→19:36)
[2018-09-14] MEDS: Metoprolol Succinate XL TAB* 25 MG PO SCH (08:58)
[2018-09-14] MEDS: traZODone TAB* 50 MG TAB PO SCH (19:36)
[2018-09-15] MEDS: Albuterol/Ipratropium NEB.SOL* Albuterol 2.5 MG/Ipratropium 0.5 MG 3 ML INH PRN ×2 (03:37→11:02)
[2018-09-15] MEDS: oxyCODONE/Acetamin 5/325 MG* TAB PO PRN ×2 (03:52→09:15)
[2018-09-15] MEDS: Levothyroxine TAB* 25 MCG TAB PO SCH (05:58)
[2018-09-15 06:45] VITALS: BP 111/66
[2018-09-15] MEDS: Tiotropium CAP.INH* CAP.INH/18 MCG (USE ORDER SET !) INH SCH (07:34)
[2018-09-15] MEDS: Metoprolol Succinate XL TAB* 25 MG PO SCH (09:15)
[2018-09-15] MEDS: Magnesium Oxide TAB* 400 MG PO SCH (09:15)
[2018-09-15] MEDS: Pregabalin CAP(*) 50 MG PO SCH (09:15)
[2018-09-15] MEDS: Pantoprazole TAB * 40 MG TAB PO SCH (09:15)
[2018-09-15] MEDS: DULoxetine DR CAP* 20 MG CAP.DR PO SCH (09:15)
--- NOTE | 2018-09-15 23:58 | DS ---
CC: Dr. Jose Thompson * DISCHARGE SUMMARY: DATE OF ADMISSION: 09/09/18 DATE OF DISCHARGE: 09/12/18 PRIMARY CARE PHYSICIAN: Dr. Jose Thompson. DISPOSITION: Discharged to home. CONDITION ON DISCHARGE: Good. HISTORY OF PRESENT ILLNESS AND HOSPITAL COURSE: This is a summary of the discharge summary performed on 09/12/[address] Mccann. Please note patient was discharged on 09/12/18; however, appealed her diagnosis. She lost her appeal; however, still refused to leave the hospital. Transportation was difficult to obtain for the patient. She was offered placement in a subacute or long-term care facility; however, she declined this as well. Ultimately, a transportation was arranged for this patient and she was discharged home on 12/29, but was without any intervening intervention since 09/12/18, at which time she had been in retirement care after appealing her discharge and losing. Brief summary of her discharge from 09/12/18 indicates final discharge diagnoses of abdominal pain secondary to ileus and constipation, anxiety disorder, chronic pain syndrome; on chronic opioids, chronic kidney disease, chronic diastolic heart failure, hypertension, Coumadin toxicity with supratherapeutic INR, hypothyroidism, peripheral neuropathy. MEDICATIONS ON DISCHARGE: 1. Albuterol. 2. Tums. 3. Vitamin D. 4. Flexeril. 5. Colace. 6. Aracelis. 7. Atrovent. 8. Xopenex. 9. Levothyroxine. 10. Lidocaine patch. 11. Metoprolol. 12. Nitroglycerin p.r.n. 13. Omeprazole. 14. MiraLAX. 15. Zantac. 16. Actonel. 17. Simethicone. 18. Spironolactone. 19. Spiriva. 20. Torsemide. New medications include: 1. Cymbalta. 2. Ativan at bedtime. 3. Magnesium oxide. 4. Oxycodone, which she was advised to reduce. HOSPITAL COURSE: This again is a summary of the full discharge summary performed on 09/12/[address] Mccann. Patient was admitted on 09/09/18 to the emergency room with abdominal pain and decreased p.o. intake. She was evaluated and her diagnostic studies were unremarkable. CAT scan showed question of ileus versus a bowel obstruction. Patient had benign exams and continued to have flatus. She tolerated food during the course of her hospital stay. It was thought that her chronic opioids were contributing to her ileus. Her opioids were titrated down during the course of hospital stay. Patient did have chronic lower extremity pain. She was started on Cymbalta during the course of her hospital stay. She was able to ambulate prior to her discharge more than 50 feet. She remained reluctant to be released. Her family was reluctant to accept her home as well as take her home. Ultimately, the patient was discharged home without any complications. Reasons to return to the hospital including recurrent or worsening symptoms, inability to care for herself, chest pain, shortness of breath, nausea, vomiting , lightheadedness, loss of consciousness, near loss of consciousness, inability to obtain or tolerate medication was discussed with patient. She acknowledged understanding. TIME SPENT: Greater than 30 minutes was spent on discharge of this patient, greater than half was spent [id number] with the patient. [id number]/[facility] #: [id number] PORTER
== END 2018-09-15 15:25 | disposition home health service (06) | DRG 389 ==
LOC: ED 16:54 → MED 09-10 01:23
PROVIDERS: ADMIT Internal Medicine; ATTEND Internal Medicine
DX: K56.7 Ileus, unspecified (principal); I50.32 Chronic diastolic (congestive) heart failure; J96.11 Chronic respiratory failure with hypoxia; I13.0 Hypertensive heart and chronic kidney disease with heart failure and stage 1 through stage 4 chronic kidney disease, or unspecified chronic kidney disease; K59.00 Constipation, unspecified; I48.91 Unspecified atrial fibrillation; D69.6 Thrombocytopenia, unspecified; E78.00 Pure hypercholesterolemia, unspecified; E89.0 Postprocedural hypothyroidism; I25.10 Atherosclerotic heart disease of native coronary artery without angina pectoris; J44.9 Chronic obstructive pulmonary disease, unspecified; K21.9 Gastro-esophageal reflux disease without esophagitis; M17.0 Bilateral primary osteoarthritis of knee; N18.9 Chronic kidney disease, unspecified; G62.9 Polyneuropathy, unspecified; F41.9 Anxiety disorder, unspecified; F32.9 Major depressive disorder, single episode, unspecified; R79.1 Abnormal coagulation profile; T40.2X5A Adverse effect of other opioids, initial encounter; I87.8 Other specified disorders of veins; T45.515A Adverse effect of anticoagulants, initial encounter; K44.9 Diaphragmatic hernia without obstruction or gangrene; L53.8 Other specified erythematous conditions; N20.0 Calculus of kidney; K40.90 Unilateral inguinal hernia, without obstruction or gangrene, not specified as recurrent; G89.4 Chronic pain syndrome; Z90.710 Acquired absence of both cervix and uterus; Z88.6 Allergy status to analgesic agent; Z88.1 Allergy status to other antibiotic agents; Z88.5 Allergy status to narcotic agent; Z88.0 Allergy status to penicillin; Z87.01 Personal history of pneumonia (recurrent); Z86.11 Personal history of tuberculosis; Z86.19 Personal history of other infectious and parasitic diseases; Z90.49 Acquired absence of other specified parts of digestive tract; Z90.3 Acquired absence of stomach [part of]; Z98.42 Cataract extraction status, left eye; Z98.41 Cataract extraction status, right eye; Z82.49 Family history of ischemic heart disease and other diseases of the circulatory system; Z87.891 Personal history of nicotine dependence; Z87.11 Personal history of peptic ulcer disease; Y92.9 Unspecified place or not applicable
CPT/HCPCS: 36415; 74176; 80048; 80053; 80076; 81003; 82150; 82550; 83605; 83690; 83735; 84100; 85025; 85610; 86140; 87040; 93005; 93970; 94640; 99284; A9270-GY; J1644; J2270; J3475

== ENCOUNTER 2018-11-12 14:00 | Inpatient (IN) | payer MEDICARE, BC ==
[2018-11-12] MEDS ORDERED: Morphine 4 MG/ML VIAL (1 ml) 4 MG/ML VIAL IV ONE ×2 (14:21→15:26)
--- NOTE | 2018-11-12 14:21 | ED ---
Lower Extremity - HPI Summary HPI Summary: An 88 y/o F presents to ED with acute on chronic L hip pain onset a few months ago and worsening recently. She rates the pain as 9 out of 10. Pt also has bilateral pedal edema, erythema and pain. Denies fever. 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 Onset of Pain: Days Onset/Duration: Days Severity Initially: Moderate Severity Currently: Severe Pain Intensity: 9 Pain Scale Used: 0-10 Numeric Timing: Constant Location: Is Discrete @ - L hip Associated Signs And Symptoms: Positive: Swelling - bilat LE, Redness - bilat LE - Allergies/Home Medications Allergies/Adverse Reactions: Allergies Allergy/AdvReac Type Severity Reaction Status Date / Time fentanyl Allergy Unknown Difficulty Verified 11/12/18 14:20 Breathing sulfamethoxazole AdvReac Intermediate Nausea Verified 11/12/18 14:20 [From Bactrim] trimethoprim [From Bactrim] AdvReac Intermediate Nausea Verified 11/12/18 14:20 ciprofloxacin AdvReac Hives Verified 11/12/18 14:20 codeine AdvReac Hives Verified 11/12/18 14:20 Penicillins AdvReac Hives Verified 11/12/18 14:20 Home Medications: Home Medications Budesonide/Formote 160/4.5(NF) [Symbicort 160/4.5 (NF)] 2 puff INH BID 11/12/18 [History Confirmed 11/12/18] Cholecalciferol (Vitamin D3) [Vitamin D3] 1,600 unit PO DAILY 11/12/18 [History Confirmed 11/12/18] Ipratropium 0.5MG/2.5ML NEB* [Atrovent 0.5 MG NEB.LOKESH*] 0.5 mg INH Q4H PRN 11/12 [History Confirmed 11/12/18] Levalbuterol HFA INHALER* [Xopenex Hfa Inhaler*] 1 puff INH QID PRN 11/12/18 [ History Confirmed 11/12/18] Lubiprostone 24 MCG CAP (NF) [Amitiza (NF)] 24 mcg PO BID 11/12/18 [History Confirmed 11/12/18] Pregabalin CAP(*) [Lyrica CAP(*)] 50 mg PO QID WITH FOOD 11/12/18 [History Confirmed 11/12/18] Sodium Chloride [Crawley] 2 spray BOTH NARES DAILY PRN 11/12/18 [History Confirmed 11/12/18] Spironolactone TAB* [Aldactone TAB*] 25 mg PO DAILY 11/12/18 [History Confirmed 11/12/18] Torsemide TAB* [Demadex*] 20 mg PO EVERY OTHER DAY 11/12/18 [History Confirmed 11/12/18] oxyCODONE TAB* [Roxycodone TAB 5 mg*] 10 mg PO Q4H PRN 11/12/18 [History Confirmed 11/12/18] PMH/Surg Hx/FS Hx/Imm Hx Previously Healthy: No Endocrine/Hematology History: Reports: Hx Anticoagulant Therapy - coumadin for a fib, Hx Blood Disorders - chronic thrombocytopenia, Hx Thyroid Disease - jwuan, Hx Anemia - HX OF Denies: Hx Diabetes Cardiovascular History: Reports: Hx Angina, Hx Congestive Heart Failure, Hx Coronary Artery Disease, Hx Hypercholesterolemia, Hx Hypertension, Other Cardiovascular Problems/Disorders - AFIB Denies: Hx Aneurysm, Hx Auto Implanted Cardiovert Defib, Hx Cardiac Arrest, Hx Cardiomegaly, Hx Deep Vein Thrombosis, Hx Myocardial Infarction, Hx Pacemaker /ICD, Hx Valvular Heart Disease Respiratory History: Reports: Hx Asthma, Hx Chronic Obstructive Pulmonary Disease (COPD) - 2L O2 @ night, Hx Pneumonia - Hospitalized from 10/14/14 - and 04/26; 01/2017, Hx Seasonal Allergies, Other Respiratory Problems/ Disorders - BILAT PNEUMONIA 10/25. PT WITH TB 1994 Denies: Hx Lung Cancer - 2L O2 at night - on 4L continuous since pneumonia January 2017, Hx Pulmonary Embolism GI History: Reports: Hx Gall Bladder Disease - cholecystectomy 1976, Hx Gastroesophageal Reflux Disease - CONTROL WITH MED, Hx Ulcer, Other GI Disorders - partial gastrectomy 1972 Denies: Hx Gastrointestinal Bleed, Hx Urosepsis History: Reports: Other Problems/Disorders - hysterectomy breast biopsy left Denies: Hx Acute Renal Failure, Hx Benign Prostatic Hyperplasia, Hx Kidney Stones, Hx Renal Disease Musculoskeletal History: Reports: Hx Arthritis - BACK, KNEES, Hx Back Problems - laminectomy, Hx Orthopedic Injury - hx r arm, r ankle, toes, Other Musculoskeletal History - back surgery 1995 Sensory History: Reports: Hx Cataracts - removed, Hx Contacts or Glasses - reading glasses Denies: Hx Eye Injury, Hx Eye Prosthesis, Hx Glaucoma, Hx Macular Degeneration, Hx Deafness, Hx Hearing Aid, Hx Hearing Problem, Other Sensory Impairments Opthamlomology History: Reports: Hx Cataracts - removed, Hx Contacts or Glasses - reading glasses Denies: Hx Eye Injury, Hx Eye Prosthesis, Hx Glaucoma, Hx Macular Degeneration, Other Sensory Impairments Neurological History: Reports: Other Neuro Impairments/Disorders - PERIPHERAL NEUROPATHY BILAT Denies: Hx Dementia, Hx Developmental Delay, Hx Migraine, Hx Seizures, Hx Transient Ischemic Attacks (TIA) Psychiatric History: Reports: Hx Anxiety - CONTROL WITH MED, Hx Depression - CONTROL WITH MED Denies: Hx Panic Disorder, Hx Schizophrenia, Hx Bipolar Disorder, Hx Suicide Attempt, Hx of Violent Episodes Against Others - Cancer History Cancer Type, Location and Year: breast lumpectomy was benign Hx Chemotherapy: No Hx Radiation Therapy: No - Surgical History Surgery Procedure, Year, and Place: T&A A CHILD. groin abscess A CHILD. appendectomy, cholecystectomy, [facility]. hysterectomy partial, [facility]. thyroidectomy partial, [facility]. L breast and R lung biopsies, [facility]. 1995 laminectomy L4,5, [facility]. gastrectomy partial 1972 r/t hemmorhaging ulcer;. Carpal Tunnel Surgery Right Wrist by Dr. Chauhan in July 2015. BILAT CATARACTS, [facility]. right lymph node bx 1994, [facility]. left leg surgery- vein 2003 [facility]. [place] [facility] [place] Anesthesia Reactions: No - Immunization History Date of Tetanus Vaccine: 2013 Date of Influenza Vaccine: Fall 2012 Infectious Disease History: No Infectious Disease History: Reports: Hx Tuberculosis, History Other Infectious Disease - hx e-coli sepsis and pneumonia February 2017 Denies: Hx Clostridium Difficile, Hx Hepatitis, Hx Human Immunodeficiency Virus (HIV), Hx of Known/Suspected MRSA, Hx Known/Suspected VRE, Hx Known/ Suspected VRSA, Traveled Outside the [place] in Last 30 Days - Family History Known Family History: Positive: Cardiac Disease - father - CHF, brother - aneurysm Negative: Hypertension, Diabetes - Social History Occupation: Retired Lives: Alone Alcohol Use: Occasionally Alcohol Amount: 2 drinks per week Hx Substance Use: Yes Substance Use Comment - Amount & Last Used: oxycodone and oxymorphone Hx Tobacco Use: Yes Smoking Status (MU): Former Smoker Type: Cigarettes Amount Used/How Often: 2 packs per week Length of Time of Smoking/Using Tobacco: ON AND OFF 45 YRS Have You Smoked in the Last Year: No Review of Systems Negative: Fever Musculoskeletal: Other - pos: bilat LE pain Positive: Edema - bilat LE Skin: Other - pos: bilat LE redness All Other Systems Reviewed And Are Negative: Yes Physical Exam - Summary Physical Exam Summary: VITAL SIGNS: Reviewed. GENERAL: Patient is a well-developed and nourished FEMALE who is lying comfortable in the stretcher. Patient is not in any acute respiratory distress. HEAD AND FACE: No signs of trauma. No ecchymosis, hematomas or skull depressions. No sinus tenderness. EYES: PERRLA, EOMI x 2, No injected conjunctiva, no nystagmus. EARS: Hearing grossly intact. Ear canals and tympanic membranes are within normal limits. MOUTH: Oropharynx within normal limits. NECK: Supple, trachea is midline, no adenopathy, no JVD, no carotid bruit, no c- spine tenderness, neck with full ROM. CHEST: Symmetric, no tenderness at palpation LUNGS: Clear to auscultation bilaterally. No wheezing or crackles. CVS: irregular rate and rhythm, S1 and S2 present, no murmurs or gallops appreciated. ABDOMEN: Soft, non-tender. No signs of distention. No rebound, no guarding, and no masses palpated. Bowel sounds are normal. EXTREMITIES: Bilat LE edema, swelling and redness from ankle to below knee. Good pedal pulses. Good capillary refill. Lidoderm patches on hips. Decreased ROM of LLE secondary to pain. NEURO: Alert and oriented x 3. No acute neurological deficits. Speech is normal and follows commands. SKIN: Dry and warm Triage Information Reviewed: Yes Vital Signs On Initial Exam: Initial Vitals Temp Pulse Resp BP Pulse Ox 99.7 F 118 16 130/58 97 11/12/18 14:02 11/12/18 14:02 11/12/18 14:02 11/12/18 14:02 11/12/18 14:02 Vital Signs Reviewed: Yes Diagnostics - Vital Signs Vital Signs Temp Pulse Resp BP Pulse Ox 11/12/18 14:06 116 97 11/12/18 14:04 108 130/58 96 11/12/18 14:02 99.7 F 118 16 130/58 97 - Laboratory Result Diagrams: 11/12/18 14:43 11/12/18 14:43 Lab Statement: Any lab studies that have been ordered have been reviewed, and results considered in the medical decision making process. - CT PELVIS CT Interpretation Completed By: Radiologist Summary of CT Findings: IMPRESSION: 1. OSTEOPENIA. 2. TRABECULAR DISRUPTION ALONG THE LEFT SACRAL ALA SUGGESTIVE OF A SACRAL INSUFFICIENCY. FRACTURE. 3. OSTEOARTHRITIS, MOST PRONOUNCED OF THE LEFT HIP. 4. ATHEROSCLEROSIS. ED provider has reviewed this report. - Ultrasound No standard instances Ultrasound Interpretation Completed By: Radiologist Summary of Ultrasound Findings: Bilateral LE US, IMPRESSION: #. The RIGHT peroneal veins could not be visualized limiting assessment. Thrombosis of the RIGHT peroneal veins is not excluded. #. Nonocclusive thrombosis of the LEFT profunda femoral vein. ED provider has reviewed this report. Lower Extremity Course/Dx - Course Assessment/Plan: Patient is an 88-year-old female who presents to the emergency room with a chief complaint of having left hip pain. She reports it is chronic pain. She has x-rays of the left hip with no fracture dislocation. She also complains of bilateral extremity edema, swelling and erythema. Test results are without any significant abnormality except for hemoglobin 8.3, hematocrit 27 , ESR is 46, carbon dioxide is 33, BUN is 36, creatinine is 1.36, glucose 135 , uric acid is 10.8, CRP is 8.39 and alkaline phosphatase is 108. Pelvic CT impression: Osteopenia. Trabecular disruption along the left sacral area suggestive of sacral insufficiency fracture. Osteoarthritis most pronounced on the left hip. Atherosclerosis. I discussed the case with Dr. Juarez from orthopedics and he recommends pain medications and symptomatic treatment. B/L LE U/S IMPRESSION: #. The RIGHT peroneal veins could not be visualized limiting assessment. Thrombosis of the RIGHT peroneal veins is not excluded. # . Nonocclusive thrombosis of the LEFT profunda femoral vein. We tried to ambulate the patient however the patient is unable to ambulate secondary to pain. Therefore I discussed my physical exam findings and test results with Dr. Huizar, hospitalist, who accepted the patient for admission. Patient is already taking Coumadin for atrial fibrillation. - Diagnoses Provider Diagnoses: Deep vein thrombosis (DVT) of both lower extremities, Left hip pain, Unable to ambulate - Physician Notifications Discussed Care Of Patient With: Jena Huizar - hospitalist Time Discussed With Above Provider: 18:14 Instructed by Provider To: Admit As Inpatient Discharge - Sign-Out/Discharge Documenting (check all that apply): Patient Departure - ADMIT Patient Received Moderate/Deep Sedation with Procedure: No - Discharge Plan Condition: Stable Disposition: [facility]ITTED TO [facility] Referrals: Jose Thompson MD [Primary Care Provider] - - Billing Disposition and Condition Condition: STABLE Disposition: Admitted to [facility] - Attestation Statements Document Initiated by Scribe: Yes Documenting Scribe: Magdy Sutton Provider For Whom Scribe is Documenting (Include Credential): Dr. Armando Espinoza MD Scribe Attestation: Rojas, Magdy Sutton, scribed for Dr. Armando Espinoza MD on 11/12/18 at 1840. Scribe Documentation Reviewed: Yes Provider Attestation: The documentation as recorded by the Magdy lynne accurately reflects the service I personally performed and the decisions made by me, Dr. Armando Espinoza MD Status of Scribe Document: Viewed
[2018-11-12 15:11] LABS: Albumin 3.2 g/dL (3.2-5.2); BUN/Creatinine Ratio 26.5 (8-20); C Reactive Protein 8.39 mg/L (<8.01); Calcium 8.8 mg/dL (8.6-10.3); EGFR African American 44.4 (>60); EGFR Non-African American 36.7 (>60); Globulin 3.2 g/dL (2-4); Potassium 4.8 mmol/L (3.5-5.0); Total Bilirubin 0.4 mg/dL (0.2-1.0); Total Protein 6.4 g/dL (6.4-8.9); Uric Acid 10.8 mg/dL (2.3-6.6)
[2018-11-12 15:12] LABS: Hematocrit 27 % (35-47); Hemoglobin 8.3 g/dL (12.0-16.0); Mean Corpuscular HGB Conc 31 g/dL (31-36); Mean Corpuscular Hemoglobin 26 pg (27-31); Mean Corpuscular Volume 85 fL (80-97); Mean Platelet Volume 8.9 fL (7.4-10.4); Red Blood Count 3.18 10^6 /uL (3.70-4.87); Red Cell Distribution Width 19 % (10.5-15); White Blood Count 5.4 10^3/uL (3.5-10.8)
[2018-11-12] MEDS ORDERED: Ondansetron INJ* 2 MG/ML VIAL IV ONE (15:26)
[2018-11-12 16:00] LABS: Platelet Count Platelets clumped. 10^3/uL (150-450)
[2018-11-12 16:01] LABS: ABS Basophils 0.1 10^3/ul (0-0.2); ABS Monocytes 0.4 10^3/ul (0-0.8); Eosinophil % 0.5 %; Lymphocyte % 17.7 %
[2018-11-12 16:22] LABS: Erythrocyte Sed Rate 46 mm/Hr (0-29)
[2018-11-12 18:30] LABS: Activated Partial Thrombo Time 45.3 seconds (26.0-36.3); INR 2.25 (0.82-1.09)
[2018-11-12] MEDS ORDERED: Acetaminophen TAB* 325 MG PO PRN (18:56)
[2018-11-12] MEDS ORDERED: Ondansetron INJ* 2 MG/ML VIAL IV PRN (18:56)
[2018-11-12] MEDS ORDERED: Nitroglycerin TAB 0.4 MG* 0.4 MG TAB SL PRN (19:03)
[2018-11-12] MEDS ORDERED: LORazepam TAB(*) 0.5 MG PO PRN (19:03)
[2018-11-12] MEDS ORDERED: Polyethylene Glycol 3350* 17 GM PACKET PO PRN (19:03)
[2018-11-12] MEDS ORDERED: Saline NASAL SPRAY 0.65%* BTL BOTH NARES PRN (19:03)
[2018-11-12] MEDS ORDERED: Albuterol/Ipratropium NEB.SOL* Albuterol 2.5 MG/Ipratropium 0.5 MG 3 ML INH PRN (19:03)
[2018-11-12] MEDS ORDERED: Simethicone TAB* 80 MG TAB.CHEW PO PRN (19:03)
[2018-11-12] MEDS ORDERED: Warfarin TAB(*) 3 MG PO SCH (20:00)
[2018-11-12] MEDS: Enoxaparin(*) 60 MG/0.6 ML SYR SUBCUT SCH (20:56)
[2018-11-12] MEDS: Morphine INJ* 2 MG/ML 1 ML SYRINGE (TWO MG - NEW SYRINGE VERSION) IV PRN (20:56)
[2018-11-12] MEDS: traZODone TAB* 50 MG TAB PO SCH (20:57)
[2018-11-12] MEDS: Calcium Polycarbophil TAB* 625 MG PO SCH (20:58)
[2018-11-12] MEDS ORDERED: Pregabalin CAP(*) 50 MG PO SCH (21:00)
[2018-11-12] MEDS ORDERED: Enoxaparin(*) 60 MG/0.6 ML SYR SUBCUT SCH (21:00)
[2018-11-12] MEDS: Mometasone/Formoter 200/5 MDI INH SCH (21:00)
[2018-11-12] MEDS: CMCS: Lubiprostone 24 MCG CAP (NF) PO SCH (21:11)
--- NOTE | 2018-11-12 21:14 | HP ---
ATTENDING ADDENDUM NOW INCLUDED ON THIS REPORT CC: Dr. Jose Thompson * ADMISSION HISTORY AND PHYSICAL: DATE OF ADMISSION: 11/12/18 PRIMARY CARE PROVIDER: Dr. Jose Thompson. MY ATTENDING WHILE IN THE HOSPITAL: Dr. Dorian Maldonado.* (DICTATED BY NEFTALI BUCKLEY) CHIEF COMPLAINT: Hip pain x1 month. HISTORY OF PRESENT ILLNESS: Ms. Saldana is an 88-year-old female with past medical history significant for advanced COPD with chronic hypoxic respiratory failure, atrial fibrillation, diastolic heart failure, chronic kidney disease, chronic pain, coronary artery disease, who presents to the emergency department after being unable to ambulate due to pain in her left hip. The patient states that she has not fallen recently and that 1 month ago or so she began to notice pain in her left hip without any trauma or changes in her routine. The patient states that she has not had any changes in her routine as a result of this except for decreased activity. The patient lives at home by herself. The patient denies fevers, chills, or chest pain. The patient has chronic shortness of breath, this has not gotten any worse. The patient denies abdominal pain, diarrhea, pain with urination. The patient is on treatment for osteoporosis. The patient has been taking all of her medications. The patient denies recent changes to her meds. The patient thinks she has been therapeutic on her Coumadin. The patient has not had increase or decrease in her oral intake per her report. The patient denies increasing urinary frequency. The patient denies any bleeding, any blood in her stool. The patient is unable to walk due to pain in the emergency department, rates her pain manageable at rest , but a 9/10 with walking and it is worse. Due to concern for intractable pain causing ambulatory dysfunction, we were asked to evaluate the patient for admission to the hospital. PAST MEDICAL HISTORY: COPD with chronic hypoxic respiratory failure, on 2 L of oxygen at home; atrial fibrillation, on Coumadin; diastolic heart failure; anxiety; coronary artery disease; tricuspid regurgitation; hyperlipidemia; chronic kidney disease, stage 2; chronic pain; neuropathy; thrombocytopenia; hypertension; chronic lower extremity edema; hypothyroidism. PAST SURGICAL HISTORY: Hysterectomy, appendectomy, tonsillectomy, cholecystectomy, partial thyroidectomy, spinal surgery in the . MEDICATIONS: 1. DuoNeb 1 inhalation 3 times daily as needed. 2. Spironolactone 25 mg p.o. daily. 3. Torsemide 20 mg every other day. 4. Torsemide 40 mg every other day. 5. MiraLAX 17 g p.o. every other day as needed. 6. Nitroglycerin 0.4 mg sublingually q.5 minutes as needed for chest pain. 7. Warfarin 2.5 mg daily. 8. Calcium 500 mg p.o. every other day. 9. Spiriva 18 mcg inhalation daily. 10. Xopenex 45 mcg 4 times daily as needed. 11. Oxycodone 10 mg p.o. q.4 hours as needed. 12. Vitamin D3 at 600 units p.o. daily. 13. Lyrica 50 mg p.o. 4 times daily. 14. Levothyroxine 12.5 mcg every other day. 15. Metoprolol succinate 37.5 mg p.o. daily. 16. Symbicort 2 puffs b.i.d. 17. Ipratropium 1 inhalation every 4 hours as needed for shortness of breath. 18. Ranitidine 150 mg p.o. daily. 19. FiberCon 625 mg p.o. b.i.d. 20. Lorazepam 0.5 mg p.o. nightly as needed. 21. Amitiza 24 mcg p.o. b.i.d. 22. Simethicone 80 mg p.o. q.6 hours as needed. 23. Lidocaine patch daily. 24. Trazodone 25 mg p.o. daily as needed. 25. Risedronate 35 mg weekly. ALLERGIES: FENTANYL, BACTRIM, CIPROFLOXACIN, PENICILLIN, CODEINE. FAMILY HISTORY: The patient's father of CHF. The patient had a sister, who of bleeding ulcer. The patient's mother of coronary artery disease at 57. The patient's brother of MA at unknown age. The patient had another sister of cancer, another brother who of an aneurysm. SOCIAL HISTORY: The patient quit smoking 24 years ago, the patient smoked since she was a teenager, before that approximately 2 packs a week. The patient denies alcohol use. Denies illicit drug use. 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 REVIEW OF SYSTEMS: A 14-point review of systems was reviewed and is negative except as above in the HPI. PHYSICAL EXAMINATION GENERAL: The patient is an 88-year-old female, who appears stated age and sitting comfortably in bed, in no acute distress. VITAL SIGNS: At the time of evaluation, temperature 99.7, pulse rate 95, respiratory rate 16, oxygen saturation 97% on 2 L, blood pressure 130/58. HEENT: Head: Normocephalic, atraumatic. Sclerae anicteric. No conjunctival injection. Nasal mucosa moist. Oral mucosa moist. No pharyngeal erythema, discharge, or exudate. NECK: Supple, nontender. No lymphadenopathy. No carotid bruits auscultated. No JVD. RESPIRATORY: Clear to auscultation bilaterally. No wheezes, rales, or rhonchi. Good air exchange bilaterally. CARDIAC: Regular rate and rhythm. No clicks, murmurs, gallops, or rubs. Pulses are 2+ in the bilateral dorsalis pedis, posterior tibialis, and radial areas. Bilateral calf tenderness, slight erythema, and skin thickening of bilateral calves. ABDOMEN: Soft, nontender, nondistended. Bowel sounds present and normoactive in all 4 quadrants. No hepatosplenomegaly. No abdominal bruits auscultated. No hepatojugular reflux. GENITOURINARY: No suprapubic or CVA tenderness. NEURO: Cranial nerves II through XII intact. No focal deficits. Diffusely weak throughout. PSYCHIATRIC: Pleasant and cooperative, somewhat withdrawn. SKIN: Clean, dry, and intact. No rash except for above mentioned lower extremity edema. DIAGNOSTIC STUDIES/LAB DATA: White blood cell count 5.4, hemoglobin 8.3, hematocrit 27, platelet count clumped, ESR 46. INR 2.25, APTT 45.3. Sodium 142 , potassium 4.8, chloride 105, carbon dioxide 33, anion gap 4, creatinine 1.36, BUN 36, glucose 135, lactic acid 1.5, uric acid 10.8, calcium 8.8. Bilirubin 0.4, AST 12, ALT 9, alkaline phosphatase 108. CRP 8.39. Protein 6.4, albumin 3.2, globulin 3.2. Studies: Venous Doppler study read as right peroneal vein could not be visualized limiting assessment, thrombosis of the right peroneal vein is not excluded, nonocclusive thrombus in the left profunda femoral vein. Pelvis CT read as osteopenia, trabecular destruction on left sacral ala suggestive of sacral insufficiency fracture, osteoarthritis most prominent in the left hip, atherosclerosis. ASSESSMENT AND PLAN: Impression: Ms. Saldana is an 88-year-old female with past medical history significant for chronic obstructive pulmonary disease with chronic hypoxic respiratory failure, atrial fibrillation, diastolic heart failure, chronic kidney disease, chronic pain and osteoporosis, who presents to the emergency department with a nontraumatic sacral insufficiency fracture with severe left-sided hip pain, who will be admitted to the hospital for pain control, physical therapy evaluation, and likely rehab placement. 1. Nontraumatic sacral ala fracture. The patient has significant osteoporosis likely resulting in a nontraumatic sacral ala fracture. The patient has been getting worse over the course of a month. The patient will be seen by Physical Therapy and Occupational Therapy. The patient will have pain control with morphine. The patient does have issues with chronic pain and likely has a very high tolerance for opiate pain medication. The patient can use lidocaine patch on this hip as needed. The case was discussed with the emergency room provider , who recommended conservative treatment. The patient will be seen in consultation by Orthopedics to recommend whether any additional imaging should be obtained to assess for other causes of pathologic fracture. 2. Nonocclusive deep venous thrombosis of lower extremity. The patient has a deep venous thrombosis of the lower extremity, which is concerning given that she is already therapeutic on Coumadin. The patient's Coumadin will be continued at this time. The patient's deep venous thrombosis is nonocclusive. It is likely worsening the patient's lower extremity swelling and is likely provoked from her relative inactivity due to her pain. Hematology consultation will be obtained for alternate treatment options given the patient's possible Coumadin failure. 3. Chronic obstructive pulmonary disease with chronic hypoxic respiratory failure. The patient is at her baseline. Continue with home oxygen and inhalers as needed. 4. Atrial fibrillation. The patient is intermittently tachycardic likely due to pain. Continue the patient's metoprolol, increase as needed. The patient's blood pressure is robust. Continue the patient's warfarin at home dose. She is currently therapeutic. 5. Diastolic heart failure. The patient's lower extremity edema is worse than normally is. Increase the patient's torsemide to 40 mg daily. 6. Chronic kidney disease. The patient's creatinine is elevated above baseline. The patient does not appear dehydrated. The patient appears fluid overloaded. We will increase torsemide as above and monitor her kidney function closely. 7. Coronary artery disease. The patient is not having any active signs of acute coronary syndrome. Continue nitroglycerin as needed for chest pain. 8. Neuropathy. Continue the patient's Lyrica. 9. Chronic pain. Continue the patient's oxycodone as well as increased morphine dose due to hip fracture. 10. Osteoporosis. Continue risedronate outpatient as well as vitamin D and calcium supplementation. 11. Hypothyroidism. Continue the patient's Synthroid. 12. Thrombocytopenia. The patient's platelets were not able to be calculated on today's CBC. The patient's platelets have been stable for a long period of time. We will monitor. We will recheck in the morning. 13. DVT prophylaxis. The patient is therapeutic on Coumadin. 14. FEN. The patient will have a heart-healthy diet, caffeine okay. The patient is fluid overloaded and does not need fluids at this time. TIME SPENT: Approximately 60 minutes was spent on the admission of this patient , 30 of which was spent [id number] with the patient obtaining history and physical and discussing treatment plan. This plan was discussed with my attending, Dr. Dorian Maldonado, and she is in agreement. NEFTALI BUCKLEY ADDENDUM: PRIMARY CARE PROVIDER: Dr. Jose Thompson. The case was reviewed and discussed with NEFTALI Buckley. Mrs. Saldana is an 88-year-old lady with a past medical history of COPD, on 3 L of home oxygen; atrial fibrillation; anxiety; chronic pain; neuropathy, who was admitted in early September with complaints of abdominal pain. At that point, the impression was that her symptoms were secondary to ileus and constipation and she was weak and had difficulty walking independently. She had been offered short-term rehab at that time, but declined and eventually she was discharged home. She presents to the emergency room today with complaints of left hip pain that has been going on for months. Her workup in the emergency room revealed a left sacral ala insufficiency fracture. She was also found to have a nonocclusive thrombosis of the left profunda femoral vein. She will be admitted for pain management, physical therapy evaluation. The emergency room provider contacted the orthopedist and the plan is for conservative management. She may benefit of subacute rehab when she is discharged. The patient is on warfarin for atrial fibrillation and her INR has been therapeutic though her lower extremity doppler shows this nonocclusive thrombus of the left profunda femoral vein. We will discuss with Hematology since the description this is probably an acute clot in the setting of a therapeutic INR. We may need to change her to Lovenox in the meantime depending on Hematology opinion. Her labs were also reviewed. I am in agreement with her current management. DORIAN Maldonado MD [id number]/[facility] #: [id number]/CPS #: [id number] PORTER
--- NOTE | 2018-11-12 21:14 | HP ---
CC: Dr. Jose Thompson HISTORY AND PHYSICAL: ADDENDUM: PRIMARY CARE PROVIDER: Dr. Jose Thompson. The case was reviewed and discussed with Bridger Berger, physician child welfare assistant. Mrs. Saldana is an 88-year-old lady with a past medical history of COPD, on 3 L of home oxygen; atrial fibrillation; anxiety; chronic pain; neuropathy, who was admitted in early September with complaints of abdominal pain. At that point, the impression was that her symptoms were secondary to ileus and constipation and she was weak and had difficulty walking independently. She had been offered short-term rehab at that time, but declined and eventually she was discharged home. She presents to the emergency room today with complaints of left hip pain that has been going on for months. Her workup in the emergency room revealed a left sacral ala insufficiency fracture. She was also found to have a nonocclusive thrombosis of the left profunda femoral vein. She will be admitted for pain management, physical therapy evaluation. The emergency room provider contacted the orthopedist and the plan is for conservative management. She may benefit of subacute rehab when she is discharged. The patient is on warfarin for atrial fibrillation and her INR has been therapeutic though her lower extremity doppler shows this nonocclusive thrombus of the left profunda femoral vein. We will discuss with Hematology since the description this is probably an acute clot in the setting of a therapeutic INR. We may need to change her to Lovenox in the meantime depending on Hematology opinion. Her labs were also reviewed. I am in agreement with her current management. [id number]/[facility] #: [id number] MTDD
[2018-11-13 00:52] LABS: Urine Appearance Clear; Urine Bilirubin Negative (Negative); Urine Blood Negative (Negative); Urine Color Yellow; Urine Glucose Negative (Negative); Urine Ketones Negative (Negative); Urine Nitrite Negative (Negative); Urine Protein Negative (Negative); Urine Specific Gravity 1.011 (1.010-1.030); Urine Urobilinogen Negative (Negative)
[2018-11-13] MEDS: Lidocaine PATCH 5%* 1 PATCH TRANSDERM PRN (05:01)
[2018-11-13] MEDS: Levothyroxine TAB* 25 MCG TAB PO SCH (05:02)
[2018-11-13] MEDS: Morphine INJ* 2 MG/ML 1 ML SYRINGE (TWO MG - NEW SYRINGE VERSION) IV PRN ×2 (08:25→19:32)
[2018-11-13] MEDS: Mometasone/Formoter 200/5 MDI INH SCH ×2 (08:38→19:45)
[2018-11-13] MEDS: Tiotropium CAP.INH* CAP.INH/18 MCG (USE ORDER SET !) INH SCH (08:39)
--- NOTE | 2018-11-13 08:39 | PN ---
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 Otherwise fatigued and no BM x 3 days. Seen by brittaney, plan to continue warfarin for now, she has gotten lovenox therapeutic dosing while here but will resume warfarin tonight and check INR daily. No c/o chest pain or SOB. Objective Active Medications: Acetaminophen (Tylenol Tab*) 650 mg PO Q6H PRN PRN Reason: FEVER/PAIN Albuterol/Ipratropium (Duoneb (Albuterol 2.5 Mg/Ipratropium 0.5 Mg)) 1 neb INH TID PRN PRN Reason: SOB/WHEEZING Calcium Polycarbophil (Fibercon Tab*) 625 mg PO BID [facility] Last Admin: 11/12/18 20:58 Dose: 625 mg Cholecalciferol (Vitamin D Tab*) 1,600 unit PO DAILY [facility] Device (Tiotropium Inhaler Device*) 1 each INH 0900 ONE Stop: 11/13/18 09:01 Enoxaparin Sodium (Lovenox(*)) 60 mg SUBCUT Q24H [facility] Last Admin: 11/12/18 20:56 Dose: 60 mg Famotidine (Pepcid Tab*) 20 mg PO EVERY OTHER DAY [facility]; Protocol Levothyroxine Sodium (Synthroid Tab*) 12.5 mcg PO QAM@0600 [facility] Last Admin: 11/13/18 05:02 Dose: 12.5 mcg Lidocaine (Lidoderm 5% Patch*) 1 patch TRANSDERM DAILY PRN PRN Reason: PAIN Last Admin: 11/13/18 05:01 Dose: 1 patch Lorazepam (Ativan Tab(*)) 0.5 mg PO BEDTIME PRN PRN Reason: SLEEP Lubiprostone (Amitiza (Nf)) 24 mcg PO BID [facility] Last Admin: 11/12/18 21:11 Dose: 24 mcg Metoprolol Succinate (Toprol Xl Tab*) 37.5 mg PO DAILY [facility] Mometasone Furoate/Formoterol Fumar (Dulera 200/5 Mdi*) 2 puff INH BID [facility]; Protocol Last Admin: 11/12/18 21:00 Dose: 2 puff Morphine Sulfate (Morphine Inj (Syringe))*) 2 mg IV Q3H PRN PRN Reason: PAIN Last Admin: 11/13/18 08:25 Dose: 2 mg Nitroglycerin (Nitroglycerin Tab 0.4 Mg*) 0.4 mg SL Q5M PRN PRN Reason: PAIN - CHEST Ondansetron HCl (Zofran Inj*) 4 mg IV Q6H PRN PRN Reason: NAUSEA Oxycodone HCl (Roxycodone Tab*) 10 mg PO Q4H PRN PRN Reason: PAIN Polyethylene Glycol/Electrolytes (Miralax*) 17 gm PO DAILY PRN PRN Reason: CONSTIPATION Pregabalin (Lyrica Cap(*)) 50 mg PO Q12H [facility] Simethicone (Mylicon Tab*) 80 mg PO Q6HR PRN PRN Reason: gas Last Admin: 11/12/18 20:58 Dose: 80 mg Sodium Chloride (Sodium Chloride 0.65% Nasal [place]*) 2 spray BOTH NARES DAILY PRN PRN Reason: CONGESTION Spironolactone (Aldactone Tab*) 25 mg PO DAILY [facility] Tiotropium [place] (Spiriva Cap.Inh*) 1 cap INH DAILY [facility] Torsemide (Torsemide) 40 mg PO DAILY [facility] Trazodone HCl (Desyrel Tab*) 25 mg PO BEDTIME [facility] Last Admin: 11/12/18 20:57 Dose: 25 mg Vital Signs - 8 hr 11/13/18 11/13/18 11/13/18 03:50 08:13 08:25 Temperature 97.8 F 98.1 F Pulse Rate 95 92 Respiratory 20 18 20 Rate Blood Pressure 125/66 125/64 (mmHg) O2 Sat by Pulse 98 97 Oximetry Oxygen Devices in Use Now: Nasal Cannula Appearance: Well appearing woman, slightly down and depressed, reading a book in bed Eyes: No Scleral Icterus, PERRLA Ears/Nose/Mouth/Throat: Mucous Membranes Moist Neck: NL Appearance and Movements; NL JVP, Trachea Midline Respiratory: Symmetrical Chest Expansion and Respiratory Effort, Clear to Auscultation Cardiovascular: NL Sounds; No Murmurs; No JVD, RRR Abdominal: - - Distended and soft, non tender, hypoactive, prior surgical scar Lymphatic: No Cervical Adenopathy Extremities: - - blt LE edema 1+ with chronic venous stasis and erythema that is marked Skin: - - See ext Neurological: Alert and Oriented x 3 Result Diagrams: 11/13/18 08:23 11/13/18 08:23 Assess/Plan/Problems-Billing Assessment: 88 yo F with PMH HFpEF, Afib on AC, CKD, chronic pain on bed bug exterminator opiate therapy, who presented with L ala sacral insufficiency fracture and L non occlusive femoral DVT, possible R LE occlusive DVT already on coumadin, admitted for pain control and conservative mgmt - Patient Problems (1) Sacral insufficiency fracture Current Visit: Yes Status: Acute Code(s): M84.48XA - PATHOLOGICAL FRACTURE, OTHER SITE, INIT ENCNTR FOR FRACTURE SNOMED Code(s): 047182289 Comment: -Orthopedics consulted -Pain control Oxy 40 at baseline, and PRN morphine, mindful as she is co perscribed benzos, all of them can be sedating -PT/OT -MRI of pelvis to r/o pathologic fracture (2) Femoral DVT (deep venous thrombosis) Current Visit: Yes Status: Acute Code(s): I82.419 - ACUTE EMBOLISM AND THROMBOSIS OF UNSPECIFIED FEMORAL VEIN SNOMED Code(s): 527966915 Comment: -Therapetuic on coumadin at presentation, changed to Lovenox, will resume coumadin at heme suggestion -Heme consult in place (3) Anemia Current Visit: No Status: Acute Code(s): D64.9 - ANEMIA, UNSPECIFIED SNOMED Code(s): 728088811 Comment: -chronic, normocytic , with mild worsening, but pt denies BRBPR or melana, cont to monitor -Send SPEP, r/o spike given renal insuff and fracture (4) A-fib Current Visit: No Status: Acute Code(s): I48.91 - UNSPECIFIED ATRIAL FIBRILLATION SNOMED Code(s): 99119368 Comment: - Continue metoprolol for rate control - Lovenox/warfarin for AC (5) Chronic kidney disease Current Visit: No Status: Acute Code(s): N18.9 - CHRONIC KIDNEY DISEASE, UNSPECIFIED SNOMED Code(s): 539265890 Comment: - Stable, able to have dye for MRI (6) Diastolic CHF Current Visit: No Status: Acute Code(s): I50.30 - UNSPECIFIED DIASTOLIC ( CONGESTIVE) HEART FAILURE SNOMED Code(s): 966248758 Comment: -No acute exacerbation, continue home torsemide (7) Physical deconditioning Current Visit: No Status: Acute Code(s): R53.81 - OTHER MALAISE SNOMED Code(s): 89768710360013 Comment: - PT/OT (8) Constipation Current Visit: No Status: Acute Priority: Medium Code(s): K59.00 - CONSTIPATION, UNSPECIFIED SNOMED Code(s): 66530985 Comment: - Will add MOM to miralax BID and Lubiprostone BID (9) Chronic obstructive pulmonary disease (COPD) Current Visit: No Status: Acute Code(s): J44.9 - CHRONIC OBSTRUCTIVE PULMONARY DISEASE, UNSPECIFIED SNOMED Code(s): 82793930 Comment: - Home inhalers (10) DVT prophylaxis Current Visit: No Status: Acute Code(s): GBK1597 - SNOMED Code(s): 406747805 Comment: -Lovenox, changing back to warfarin 2.5mg tonight with last lovenox dose as bridge, INR daily (11) Full code status Current Visit: No Status: Acute Code(s): Z78.9 - OTHER SPECIFIED HEALTH STATUS SNOMED Code(s): 644323802 Status and Disposition: Inpatient, will likely need DEBBIE
[2018-11-13 08:57] LABS: ABS Eosinophils 0.1 10^3/ul (0-0.6); ABS Lymphocytes 1.4 10^3/ul (1.0-4.8); ABS Monocytes 0.3 10^3/ul (0-0.8); ABS Neutrophils 1.6 10^3/ul (1.5-7.7); Eosinophil % 1.9 %; Hematocrit 28 % (35-47); Hemoglobin 8.8 g/dL (12.0-16.0); Mean Corpuscular HGB Conc 31 g/dL (31-36); Mean Corpuscular Hemoglobin 26 pg (27-31); Mean Corpuscular Volume 85 fL (80-97); Mean Platelet Volume 8.8 fL (7.4-10.4); Platelet Count 128 10^3/uL (150-450); Red Blood Count 3.34 10^6 /uL (3.70-4.87); Red Cell Distribution Width 19 % (10.5-15); White Blood Count 3.5 10^3/uL (3.5-10.8)
[2018-11-13] MEDS ORDERED: Spiriva Inhaler DEVICE* 1 EACH DEVICE INH ONE (09:00)
[2018-11-13] MEDS: Spironolactone TAB* 25 MG PO SCH (09:02)
[2018-11-13] MEDS: Metoprolol Succinate XL TAB* 25 MG PO SCH (09:03)
[2018-11-13] MEDS: Cholecalciferol TAB* 400 UNIT PO SCH (09:03)
[2018-11-13] MEDS: Pregabalin CAP(*) 50 MG PO SCH ×2 (09:03→21:54)
[2018-11-13] MEDS: Torsemide TAB 10 MG PO SCH (09:03)
[2018-11-13] MEDS: Famotidine TAB* 20 MG PO SCH (09:03)
[2018-11-13] MEDS: Calcium Polycarbophil TAB* 625 MG PO SCH ×2 (09:04→21:54)
[2018-11-13] MEDS: CMCS: Lubiprostone 24 MCG CAP (NF) PO SCH ×2 (09:04→22:00)
[2018-11-13 09:11] LABS: INR 2.01 (0.82-1.09)
[2018-11-13 09:20] LABS: Anion Gap 5 mmol/L (2-11); BUN/Creatinine Ratio 24.6 (8-20); Blood Urea Nitrogen 28 mg/dL (6-24); CO2 Carbon Dioxide 31 mmol/L (22-32); Calcium 8.6 mg/dL (8.6-10.3); Chloride 107 mmol/L (101-111); EGFR African American 54.4 (>60); Glucose 92 mg/dL (70-100); Magnesium 1.7 mg/dL (1.9-2.7); Potassium 4.3 mmol/L (3.5-5.0); Sodium 143 mmol/L (135-145)
[2018-11-13] MEDS: oxyCODONE TAB* 5 MG TAB PO PRN (13:55)
[2018-11-13 15:08] LABS: % Iron Saturation 9 % (15-55); Iron 30 ug/dL (50-212); Total Iron Binding Capacity 316 mcg/dL (250-450); Transferrin 226 mg/dL (203-362)
[2018-11-13] MEDS: Magnesium Hydroxide LIQ* 30 ML UDC PO SCH ×2 (16:36→21:53)
[2018-11-13] MEDS: Warfarin TAB(*) 2.5 MG PO SCH (16:36)
[2018-11-13 17:43] LABS: Ferritin 12.5 ng/mL (11-307)
--- NOTE | 2018-11-13 18:57 | CONS ---
CC: Dr. Thompson * HEMATOLOGY/ONCOLOGY CONSULTATION REPORT: DATE OF CONSULT: 11/13/18 PRIMARY CARE PROVIDER: Dr. Thompson. ATTENDING PHYSICIAN: Dr. Glo Barton. CONSULTING PROVIDER: NEFTALI Taylor. CHIEF COMPLAINT: Left hip pain. HISTORY OF PRESENT ILLNESS: This is an 88-year-old female with atrial fibrillation, for which she is chronically anticoagulated with Coumadin as well as COPD, who presented to the emergency department yesterday with increasing left hip pain. The patient states that her hip pain started a couple of months ago, but has been increasing over the last couple of weeks. She does live independently and has been able to complete ADLs, but with significant amount of pain and her activity has been quite limited due to this pain. She had a CT of the pelvis done in the emergency department, which demonstrated insufficiency fracture of the sacrum and the patient was subsequently admitted for pain control. Also of note, the patient reported bilateral lower extremity edema, which is chronic for her, but seems to be worse recently as well as some redness in both of her legs that she states has not been present previously. She has chronic pain, which she relates to osteoarthritis, but states that she does not have any worsening pain in her legs. Of note, the patient was hospitalized just over 2 months ago with a small bowel obstruction. She states that she has had some intermittent nausea over the last couple of months even preceding the bowel obstruction and that has been persistent. She does report constipation, states it has been few days since her last bowel movement. She does have COPD and uses oxygen primarily at night, but generally does not require any daytime oxygen, although she does report chronic dyspnea. The patient reports that she has been compliant with her Coumadin and has a home monitor with which she checks her INR on a weekly basis. She reports that her INR has been therapeutic recently, last checked on Thursday, at which point it was 2.3 and she has not had any recent changes to her Coumadin dose. PAST MEDICAL HISTORY: 1. COPD. 2. Atrial fibrillation - anticoagulated with Coumadin. 3. Diastolic heart failure. 4. Hyperlipidemia. 5. Chronic kidney disease. 6. Chronic pain. 7. Lower extremity neuropathy, which she reports is following a back surgery. 8. Chronic anemia and thrombocytopenia. 9. Hypertension. 10. Chronic lower extremity edema. 11. Hypothyroidism. PAST SURGICAL HISTORY: 1. Partial gastrectomy for perforated peptic ulcer. 2. Cholecystectomy. 3. Unspecified back surgery. 4. Hysterectomy. FAMILY HISTORY: The patient's father of CHF. Sister of a bleeding ulcer and mother who of coronory artery disease. Brother also passed of an acute [place] and another sister passed of an unspecified type of cancer. SOCIAL HISTORY: The patient has a remote smoking history, quit approximately 24 year ago with probably a [id number] history or less. She is and lives independently. Denies any regular alcohol consumption. REVIEW OF SYSTEMS: Full review of systems completed and negative except as noted in the HPI. PHYSICAL EXAM: Most Recent Vitals: Temperature 98.7 degrees Fahrenheit, pulse 84 beats per minute, respiratory rate 16, oxygen saturation 97% on room air, blood pressure 96/46. General: This is an 88-year-old female who appears her stated age and in no acute distress, seated comfortably in hospital bed. HEENT : Head is normocephalic, atraumatic. Mucous membranes are pink and moist. Cardiovascular: Heart has a regular rate and rhythm without murmurs, rubs, or gallops. Respiratory: Lungs are clear to auscultation without wheezes, crackles , or rhonchi. Abdomen: Distended and taut, but nontender to palpation with normoactive bowel sounds. Extremities: 1 to 2+ nonpitting edema, and no cords appreciated. Skin: There is some hyperpigmentation, mild erythema of both lower extremities, which is symmetric. DIAGNOSTIC STUDIES/LAB DATA: CBC shows white blood cell count of 3500, hemoglobin of 8.8 g/dL, and a platelet count of 128,000. INR of 2.25 at admission, 2.0 today. Basic metabolic panel shows a sodium of 143, potassium of 4.3, BUN of 28, creatinine of 1.14, and magnesium of 1.7. Urinalysis is unremarkable. Imaging: Venous Doppler study shows a nonocclusive thrombus of the right femoral profunda and the right peroneal veins could not be visualized, which may be suggestive of clot. CT pelvis shows osteopenia and trabecular disruption along the left sacral ala suggestive of sacral insufficiency fracture and osteoarthritis, most pronounced at the left hip. ASSESSMENT AND PLAN: This is an 88-year-old female with complicated medical history including atrial fibrillation, chronic obstructive pulmonary disease, and also notably chronic anemia and thrombocytopenia, who is chronically anticoagulated with Coumadin and presents with left hip pain, found to have a sacral insufficiency fracture and potentially bilateral deep vein thromboses while anticoagulated on Coumadin. Hematology was asked to consult to address the question whether these deep vein thromboses represent a Coumadin failure and what the recommendation for further anticoagulation is. 1. Deep vein thrombosis - despite the patient's report, it is certainly possible that she has had a period of subtherapeutic INRs while anticoagulated on Coumadin, which could have allowed for the formation of clots in the setting of hospitalization for a small bowel obstruction a couple of months ago as well as relative immobilization due to her left hip pain, both of which would be risk factors for deep vein thrombosis. Doppler study was reviewed with radiologist and compared to prior Doppler from August of this year and both of the nonocclusive thrombus in the right profunda appears to be new and the prior Doppler demonstrated a patent peroneal vein making this most likely acute in nature. At this time seeing as the right femoral profunda is nonocclusive and the left peroneal vein is a distal deep vein thrombosis, best option is to continue Coumadin at her current dose and monitor for a clot progression with a repeat Doppler in 4 to 6 weeks. She has no signs or symptoms of a pulmonary embolus at this time. 2. Sacral fracture - upon review of her chart, the question as to whether this is pathologic in origin is to be considered. She does have a chronic anemia and thrombocytopenia as well as renal insufficiency and a now nontraumatic fracture. Question whether this may be patient services representative of multiple myeloma. She does not have a protein gap. We would recommend an SPEP to evaluate for this as well as a contrasted MRI of the pelvis to further evaluate for potential malignant lesion that would have contributed to a pathologic fracture. Otherwise, pain management will be per the hospitalist provider. 3. Chronic obstructive pulmonary disease - without acute exacerbation. 4. Atrial fibrillation - rate controlled and anticoagulated. 5. Chronic pain. DISPOSITION: Per hospitalist group, Hematology will continue to follow along. As noted above, recommend repeat Doppler study in 4 to 6 weeks to evaluate for clot progression, this can be done through her primary care provider. Case was reviewed with hematology attending, Dr. Celestine Stauffer. NEFTALI TAYLOR [id number]/[facility] #: [id number] PORTER
[2018-11-13] MEDS ORDERED: Gadoteridol* (CONTRAST) 279.3 MG/ML 10 ML IV ONE (21:10)
[2018-11-13] MEDS: Enoxaparin(*) 60 MG/0.6 ML SYR SUBCUT SCH (21:53)
[2018-11-13] MEDS: Polyethylene Glycol 3350* 17 GM PACKET PO SCH (21:54)
[2018-11-13] MEDS: traZODone TAB* 50 MG TAB PO SCH (21:54)
[2018-11-14] MEDS: Morphine INJ* 2 MG/ML 1 ML SYRINGE (TWO MG - NEW SYRINGE VERSION) IV PRN ×2 (02:05→06:23)
[2018-11-14] MEDS: Levothyroxine TAB* 25 MCG TAB PO SCH (05:27)
[2018-11-14 06:44] LABS: ABS Basophils 0.1 10^3/ul (0-0.2); ABS Eosinophils 0.1 10^3/ul (0-0.6); ABS Lymphocytes 1.2 10^3/ul (1.0-4.8); ABS Monocytes 0.4 10^3/ul (0-0.8); ABS Neutrophils 1.6 10^3/ul (1.5-7.7); Eosinophil % 2.2 %; Hematocrit 27 % (35-47); Hemoglobin 8.5 g/dL (12.0-16.0); Lymphocyte % 36.7 %; Mean Corpuscular HGB Conc 32 g/dL (31-36); Mean Corpuscular Hemoglobin 26 pg (27-31); Mean Corpuscular Volume 84 fL (80-97); Platelet Count 124 10^3/uL (150-450); Red Blood Count 3.23 10^6 /uL (3.70-4.87); Red Cell Distribution Width 19 % (10.5-15); White Blood Count 3.3 10^3/uL (3.5-10.8)
[2018-11-14 06:49] LABS: INR 1.61 (0.82-1.09)
[2018-11-14 07:00] LABS: BUN/Creatinine Ratio 25.9 (8-20); Calcium 8.3 mg/dL (8.6-10.3); EGFR African American 57.9 (>60); EGFR Non-African American 47.9 (>60); Potassium 4.3 mmol/L (3.5-5.0)
--- NOTE | 2018-11-14 08:00 | PN ---
Subjective Date of Service: 11/14/18 Interval History: HD #3 on 11/14 88 yo F with PMH HFpEF, Afib on AC, CKD, chronic pain on senior living opiate therapy, who presented with L ala sacral insufficiency fracture and L non occlusive femoral DVT, possible R LE occlusive DVT already on coumadin, admitted for pain control and conservative mgmt Overnight no acute events, VSS Labs this AM: INR 1.61, will need to resume bridging with Lovenox, otherwise stable anemia and thrombocytopenia This afternoon seen while ambulating, c/o L hip pain but able to function, we discuss overall plan to MRI of pelvis then determine DEBBIE plan. No BM yet, willing to try suppository, no c/o abd pain nausea, no chest pain, no SOB. Objective Active Medications: Acetaminophen (Tylenol Tab*) 650 mg PO Q6H PRN PRN Reason: FEVER/PAIN Albuterol/Ipratropium (Duoneb (Albuterol 2.5 Mg/Ipratropium 0.5 Mg)) 1 neb INH TID PRN PRN Reason: SOB/WHEEZING Calcium Polycarbophil (Fibercon Tab*) 625 mg PO BID [facility] Last Admin: 11/13/18 21:54 Dose: 625 mg Cholecalciferol (Vitamin D Tab*) 1,600 unit PO DAILY [facility] Last Admin: 11/13/18 09:03 Dose: 1,600 unit Famotidine (Pepcid Tab*) 20 mg PO EVERY OTHER DAY [facility]; Protocol Last Admin: 11/13/18 09:03 Dose: 20 mg Levothyroxine Sodium (Synthroid Tab*) 12.5 mcg PO QAM@0600 [facility] Last Admin: 11/14/18 05:27 Dose: 12.5 mcg Lidocaine (Lidoderm 5% Patch*) 1 patch TRANSDERM DAILY PRN PRN Reason: PAIN Last Admin: 11/13/18 05:01 Dose: 1 patch Lorazepam (Ativan Tab(*)) 0.5 mg PO BEDTIME PRN PRN Reason: SLEEP Lubiprostone (Amitiza (Nf)) 24 mcg PO BID [facility] Last Admin: 11/13/18 22:00 Dose: 24 mcg Magnesium Hydroxide (Milk Of Magnesia Liq*) 30 ml PO BID [facility] Last Admin: 11/13/18 21:53 Dose: 30 ml Metoprolol Succinate (Toprol Xl Tab*) 37.5 mg PO DAILY [facility] Last Admin: 11/13/18 09:03 Dose: 37.5 mg Mometasone Furoate/Formoterol Fumar (Dulera 200/5 Mdi*) 2 puff INH BID [facility]; Protocol Last Admin: 11/13/18 19:45 Dose: 2 puff Morphine Sulfate (Morphine Inj (Syringe))*) 2 mg IV Q3H PRN PRN Reason: PAIN Last Admin: 11/14/18 06:23 Dose: 2 mg Nitroglycerin (Nitroglycerin Tab 0.4 Mg*) 0.4 mg SL Q5M PRN PRN Reason: PAIN - CHEST Ondansetron HCl (Zofran Inj*) 4 mg IV Q6H PRN PRN Reason: NAUSEA Oxycodone HCl (Roxycodone Tab*) 10 mg PO Q4H PRN PRN Reason: PAIN Last Admin: 11/13/18 13:55 Dose: 10 mg Polyethylene Glycol/Electrolytes (Miralax*) 17 gm PO BID [facility] Last Admin: 11/13/18 21:54 Dose: 17 gm Pregabalin (Lyrica Cap(*)) 50 mg PO Q12H [facility] Last Admin: 11/13/18 21:54 Dose: 50 mg Simethicone (Mylicon Tab*) 80 mg PO Q6HR PRN PRN Reason: gas Last Admin: 11/12/18 20:58 Dose: 80 mg Sodium Chloride (Sodium Chloride 0.65% Nasal [place]*) 2 spray BOTH NARES DAILY PRN PRN Reason: CONGESTION Spironolactone (Aldactone Tab*) 25 mg PO DAILY [facility] Last Admin: 11/13/18 09:02 Dose: 25 mg Tiotropium [place] (Spiriva Cap.Inh*) 1 cap INH DAILY [facility] Last Admin: 11/13/18 08:39 Dose: Not Given Torsemide (Torsemide) 40 mg PO DAILY [facility] Last Admin: 11/13/18 09:03 Dose: 40 mg Trazodone HCl (Desyrel Tab*) 25 mg PO BEDTIME [facility] Last Admin: 11/13/18 21:54 Dose: 25 mg Warfarin Sodium (Coumadin Tab(*)) 2.5 mg PO DAILY@1700 [facility]; Protocol Last Admin: 11/13/18 16:36 Dose: 2.5 mg Vital Signs - 8 hr 11/14/18 11/14/18 11/14/18 00:24 02:05 03:16 Temperature 98.0 F Pulse Rate 83 Respiratory 16 16 16 Rate Blood Pressure 126/59 (mmHg) O2 Sat by Pulse 98 Oximetry 11/14/18 11/14/18 04:10 06:23 Temperature Pulse Rate Respiratory 16 16 Rate Blood Pressure (mmHg) O2 Sat by Pulse Oximetry Oxygen Devices in Use Now: Nasal Cannula Appearance: Well appearing woman in NAD Ears/Nose/Mouth/Throat: NL Teeth, Lips, Gums Neck: NL Appearance and Movements; NL JVP, Trachea Midline Respiratory: Symmetrical Chest Expansion and Respiratory Effort, Clear to Auscultation Cardiovascular: NL Sounds; No Murmurs; No JVD Abdominal: NL Sounds; No Tenderness; No Distention, No Hepatosplenomegaly Lymphatic: No Cervical Adenopathy, No Axillary Adenopathy Skin: No Rash or Ulcers Neurological: Alert and Oriented x 3 Result Diagrams: 11/14/18 06:36 11/14/18 06:36 Microbiology and Other Data: Microbiology 11/12/18 15:53 Aerobic Blood Culture - Preliminary Blood Venous No Growth Day 1 Anaerobic Blood Culture - Preliminary No Growth Day 1 11/12/18 14:43 Aerobic Blood Culture - Preliminary Blood Venous No Growth Day 1 Anaerobic Blood Culture - Preliminary No Growth Day 1 Assess/Plan/Problems-Billing Assessment: 88 yo F with PMH HFpEF, Afib on AC, CKD, chronic pain on senior living opiate therapy, who presented with L ala sacral insufficiency fracture and L non occlusive femoral DVT, possible R LE occlusive DVT already on coumadin, admitted for pain control and conservative mgmt - Patient Problems (1) Sacral insufficiency fracture Current Visit: Yes Status: Acute Code(s): M84.48XA - PATHOLOGICAL FRACTURE, OTHER SITE, INIT ENCNTR FOR FRACTURE SNOMED Code(s): 105126106 Comment: -Orthopedics consulted -Pain control Oxy 10mg up to q 4 at baseline, will d/c IV morphine, change to standing tylenol perscribed benzos, all of them can be sedating -PT/OT -MRI of pelvis to r/o pathologic fracture (2) Femoral DVT (deep venous thrombosis) Current Visit: Yes Status: Acute Code(s): I82.419 - ACUTE EMBOLISM AND THROMBOSIS OF UNSPECIFIED FEMORAL VEIN SNOMED Code(s): 032515638 Comment: -Therapetuic on coumadin at presentation, changed to Lovenox, will resume coumadin at heme suggestion, bridging currently -Heme consult in place (3) Anemia Current Visit: No Status: Acute Code(s): D64.9 - ANEMIA, UNSPECIFIED SNOMED Code(s): 447316944 Comment: -chronic, normocytic , with mild worsening, but pt denies BRBPR or melana, cont to monitor -Send SPEP, r/o spike given renal insuff and fracture (4) A-fib Current Visit: No Status: Acute Code(s): I48.91 - UNSPECIFIED ATRIAL FIBRILLATION SNOMED Code(s): 43746416 Comment: - Continue metoprolol for rate control - Lovenox/warfarin for AC (5) Chronic kidney disease Current Visit: No Status: Acute Code(s): N18.9 - CHRONIC KIDNEY DISEASE, UNSPECIFIED SNOMED Code(s): 080712213 Comment: - Stable, able to have dye for MRI (6) Diastolic CHF Current Visit: No Status: Acute Code(s): I50.30 - UNSPECIFIED DIASTOLIC ( CONGESTIVE) HEART FAILURE SNOMED Code(s): 663456887 Comment: -No acute exacerbation, continue home torsemide (7) Physical deconditioning Current Visit: No Status: Acute Code(s): R53.81 - OTHER MALAISE SNOMED Code(s): 55654227847611 Comment: - PT/OT (8) Constipation Current Visit: No Status: Acute Priority: Medium Code(s): K59.00 - CONSTIPATION, UNSPECIFIED SNOMED Code(s): 12769504 Comment: - Will add MOM to miralax BID and Lubiprostone BID - Suppository this evening (9) Chronic obstructive pulmonary disease (COPD) Current Visit: No Status: Acute Code(s): J44.9 - CHRONIC OBSTRUCTIVE PULMONARY DISEASE, UNSPECIFIED SNOMED Code(s): 43269202 Comment: - Home inhalers (10) DVT prophylaxis Current Visit: No Status: Acute Code(s): VOW6684 - SNOMED Code(s): 142208241 Comment: -Lovenox, changing back to warfarin 2.5mg tonight with last lovenox dose as bridge, INR daily (11) Full code status Current Visit: No Status: Acute Code(s): Z78.9 - OTHER SPECIFIED HEALTH STATUS SNOMED Code(s): 052519384 Status and Disposition: Inpatient, will likely need DEBBIE
[2018-11-14] MEDS: Tiotropium CAP.INH* CAP.INH/18 MCG (USE ORDER SET !) INH SCH (08:03)
[2018-11-14] MEDS: Mometasone/Formoter 200/5 MDI INH SCH ×2 (08:08→19:16)
[2018-11-14] MEDS: Lidocaine PATCH 5%* 1 PATCH TRANSDERM PRN (08:49)
[2018-11-14] MEDS: Enoxaparin(*) 60 MG/0.6 ML SYR SUBCUT SCH (08:49)
[2018-11-14] MEDS: Magnesium Hydroxide LIQ* 30 ML UDC PO SCH ×2 (08:50→21:12)
[2018-11-14] MEDS: Polyethylene Glycol 3350* 17 GM PACKET PO SCH ×2 (08:50→21:12)
[2018-11-14] MEDS: Spironolactone TAB* 25 MG PO SCH (08:51)
[2018-11-14] MEDS: Torsemide TAB 10 MG PO SCH (08:51)
[2018-11-14] MEDS: Metoprolol Succinate XL TAB* 25 MG PO SCH (08:51)
[2018-11-14] MEDS: Calcium Polycarbophil TAB* 625 MG PO SCH ×2 (08:51→21:12)
[2018-11-14] MEDS: oxyCODONE TAB* 5 MG TAB PO PRN ×3 (08:51→21:51)
[2018-11-14] MEDS: Pregabalin CAP(*) 50 MG PO SCH ×2 (08:51→21:13)
[2018-11-14] MEDS: Cholecalciferol TAB* 400 UNIT PO SCH (08:52)
[2018-11-14] MEDS: CMCS: Lubiprostone 24 MCG CAP (NF) PO SCH ×2 (10:27→21:13)
[2018-11-14] MEDS: Acetaminophen TAB* 325 MG PO SCH ×2 (16:48→23:48)
[2018-11-14] MEDS: Warfarin TAB(*) 2.5 MG PO SCH (16:49)
[2018-11-14] MEDS: traZODone TAB* 50 MG TAB PO SCH (21:12)
[2018-11-15] MEDS: Acetaminophen TAB* 325 MG PO SCH ×5 (00:50→23:12)
[2018-11-15] MEDS: oxyCODONE TAB* 5 MG TAB PO PRN ×3 (03:59→17:21)
[2018-11-15 06:23] LABS: ABS Eosinophils 0.1 10^3/ul (0-0.6); ABS Monocytes 0.3 10^3/ul (0-0.8); ABS Neutrophils 1.7 10^3/ul (1.5-7.7); Eosinophil % 2.6 %; Hematocrit 28 % (35-47); Hemoglobin 8.7 g/dL (12.0-16.0); Lymphocyte % 31.3 %; Mean Corpuscular HGB Conc 31 g/dL (31-36); Mean Corpuscular Hemoglobin 26 pg (27-31); Mean Corpuscular Volume 84 fL (80-97); Mean Platelet Volume 7.9 fL (7.4-10.4); Platelet Count 151 10^3/uL (150-450); Red Blood Count 3.29 10^6 /uL (3.70-4.87); Red Cell Distribution Width 19 % (10.5-15); White Blood Count 3.1 10^3/uL (3.5-10.8)
[2018-11-15] MEDS: Levothyroxine TAB* 25 MCG TAB PO SCH (06:24)
[2018-11-15 06:41] LABS: BUN/Creatinine Ratio 25.2 (8-20); Calcium 8.6 mg/dL (8.6-10.3); EGFR African American 48.1 (>60); EGFR Non-African American 39.7 (>60); Potassium 4.3 mmol/L (3.5-5.0)
[2018-11-15] MEDS: Tiotropium CAP.INH* CAP.INH/18 MCG (USE ORDER SET !) INH SCH (08:10)
[2018-11-15] MEDS: Mometasone/Formoter 200/5 MDI INH SCH ×2 (08:10→19:31)
[2018-11-15] MEDS ORDERED: Bisacodyl SUPP* 10 MG SUPP PR SCH (09:00)
[2018-11-15] MEDS: Enoxaparin(*) 60 MG/0.6 ML SYR SUBCUT SCH (10:28)
--- NOTE | 2018-11-15 12:42 | PN ---
Subjective Date of Service: 11/15/18 Interval History: HD #4 on 11/15 88 yo F with PMH HFpEF, Afib on AC, CKD, chronic pain on correction opiate therapy, who presented with L ala sacral insufficiency fracture and L non occlusive femoral DVT, possible R LE occlusive DVT already on coumadin, admitted for pain control and conservative mgmt-MRI of pelvis showing ? bony met on R pelvis (not site of fracture) Overnight no acute events, VSS Labs this AM: Continues on Lovenox bridge to coumadin, pancytopenia with leukopenia as well, SPEP pending This morning seen in bed awaiting CT C/A/P explained findings of pelvic MRI and hesitate how to interpret them, she tells me she would want further testing done if there was a possibility of malignancy, answered all questions, she understands possible bony met seen on MRI but will need to correlate with other labs and scans before we know how to interpret this. She reports fatigue from not sleeping but does say pain has been controlled, she takes Ocy 10 4x a day at baseline, rx from pain clinic, we have added tylenol ATC only and has otherwise been stable. No CP, SOB, HOOK, or other concerns, does want diet upon returning from scan Objective Active Medications: Acetaminophen (Tylenol Tab*) 650 mg PO Q6H [facility] Last Admin: 11/15/18 10:27 Dose: 650 mg Albuterol/Ipratropium (Duoneb (Albuterol 2.5 Mg/Ipratropium 0.5 Mg)) 1 neb INH TID PRN PRN Reason: SOB/WHEEZING Calcium Polycarbophil (Fibercon Tab*) 625 mg PO BID [facility] Last Admin: 11/14/18 21:12 Dose: 625 mg Cholecalciferol (Vitamin D Tab*) 1,600 unit PO DAILY [facility] Last Admin: 11/14/18 08:52 Dose: 1,600 unit Enoxaparin Sodium (Lovenox(*)) 60 mg SUBCUT Q24H [facility] Last Admin: 11/15/18 10:28 Dose: 60 mg Famotidine (Pepcid Tab*) 20 mg PO EVERY OTHER DAY [facility]; Protocol Last Admin: 11/13/18 09:03 Dose: 20 mg Levothyroxine Sodium (Synthroid Tab*) 12.5 mcg PO QAM@0600 [facility] Last Admin: 11/15/18 06:24 Dose: Not Given Lidocaine (Lidoderm 5% Patch*) 1 patch TRANSDERM DAILY PRN PRN Reason: PAIN Last Admin: 11/14/18 08:49 Dose: 1 patch Lorazepam (Ativan Tab(*)) 0.5 mg PO BEDTIME PRN PRN Reason: SLEEP Lubiprostone (Amitiza (Nf)) 24 mcg PO BID [facility] Last Admin: 11/14/18 21:13 Dose: 24 mcg Magnesium Hydroxide (Milk Of Magnesia Liq*) 30 ml PO BID [facility] Last Admin: 11/14/18 21:12 Dose: 30 ml Metoprolol Succinate (Toprol Xl Tab*) 37.5 mg PO DAILY [facility] Last Admin: 11/14/18 08:51 Dose: 37.5 mg Mometasone Furoate/Formoterol Fumar (Dulera 200/5 Mdi*) 2 puff INH BID [facility]; Protocol Last Admin: 11/15/18 08:10 Dose: 2 puff Nitroglycerin (Nitroglycerin Tab 0.4 Mg*) 0.4 mg SL Q5M PRN PRN Reason: PAIN - CHEST Ondansetron HCl (Zofran Inj*) 4 mg IV Q6H PRN PRN Reason: NAUSEA Oxycodone HCl (Roxycodone Tab*) 10 mg PO Q4H PRN PRN Reason: PAIN Last Admin: 11/15/18 10:27 Dose: 10 mg Polyethylene Glycol/Electrolytes (Miralax*) 17 gm PO BID [facility] Last Admin: 11/14/18 21:12 Dose: 17 gm Pregabalin (Lyrica Cap(*)) 50 mg PO Q12H [facility] Last Admin: 11/14/18 21:13 Dose: 50 mg Simethicone (Mylicon Tab*) 80 mg PO Q6HR PRN PRN Reason: gas Last Admin: 11/12/18 20:58 Dose: 80 mg Sodium Chloride (Sodium Chloride 0.65% Nasal [place]*) 2 spray BOTH NARES DAILY PRN PRN Reason: CONGESTION Spironolactone (Aldactone Tab*) 25 mg PO DAILY [facility] Last Admin: 11/14/18 08:51 Dose: 25 mg Tiotropium [place] (Spiriva Cap.Inh*) 1 cap INH DAILY [facility] Last Admin: 11/15/18 08:10 Dose: 1 cap Torsemide (Torsemide) 40 mg PO DAILY [facility] Last Admin: 11/14/18 08:51 Dose: 40 mg Trazodone HCl (Desyrel Tab*) 25 mg PO BEDTIME [facility] Last Admin: 11/14/18 21:12 Dose: 25 mg Warfarin Sodium (Coumadin Tab(*)) 2.5 mg PO DAILY@1700 [facility]; Protocol Last Admin: 11/14/18 16:49 Dose: 2.5 mg Vital Signs - 8 hr 11/15/18 11/15/18 11/15/18 07:15 08:11 10:27 Temperature 97.5 F Pulse Rate 94 81 Respiratory 12 18 14 Rate Blood Pressure 120/60 (mmHg) O2 Sat by Pulse 99 98 Oximetry 11/15/18 11:05 Temperature 96.8 F Pulse Rate 79 Respiratory 16 Rate Blood Pressure 110/51 (mmHg) O2 Sat by Pulse 100 Oximetry Oxygen Devices in Use Now: Nasal Cannula Appearance: Fatigued woman in NAD, resting in bed Ears/Nose/Mouth/Throat: NL Teeth, Lips, Gums, Mucous Membranes Moist Neck: NL Appearance and Movements; NL JVP, Trachea Midline Respiratory: Symmetrical Chest Expansion and Respiratory Effort, Clear to Auscultation Cardiovascular: NL Sounds; No Murmurs; No JVD, - - irreg irreg Abdominal: NL Sounds; No Tenderness; No Distention, No Hepatosplenomegaly Lymphatic: No Cervical Adenopathy Extremities: No Edema Skin: No Rash or Ulcers Neurological: Alert and Oriented x 3 Result Diagrams: 11/15/18 05:42 11/15/18 05:42 Microbiology and Other Data: Microbiology 11/12/18 15:53 Aerobic Blood Culture - Preliminary Blood Venous No Growth Day 1 Anaerobic Blood Culture - Preliminary No Growth Day 1 11/12/18 14:43 Aerobic Blood Culture - Preliminary Blood Venous No Growth Day 1 Anaerobic Blood Culture - Preliminary No Growth Day 1 Assess/Plan/Problems-Billing Assessment: 88 yo F with PMH HFpEF, Afib on AC, CKD, chronic pain on correction opiate therapy, who presented with L ala sacral insufficiency fracture and L non occlusive femoral DVT, possible R LE occlusive DVT already on coumadin, admitted for pain control and conservative mgmt, MRI of pelvis also showing ? bony met, undergoing onc workup - Patient Problems (1) Sacral insufficiency fracture Current Visit: Yes Status: Acute Code(s): M84.48XA - PATHOLOGICAL FRACTURE, OTHER SITE, INIT ENCNTR FOR FRACTURE SNOMED Code(s): 270397426 Comment: -Orthopedics consulted-no intervention. -Pain control Oxy 10mg up to q 6 at baseline, standing Tylenol, pregabalin -PT/OT -MRI of pelvis shwoing R sided ? possible met, not at site of pain or fracture, she denies R hip pain (2) Femoral DVT (deep venous thrombosis) Current Visit: Yes Status: Acute Code(s): I82.419 - ACUTE EMBOLISM AND THROMBOSIS OF UNSPECIFIED FEMORAL VEIN SNOMED Code(s): 209889984 Comment: -Therapetuic on coumadin at presentation, changed to Lovenox, will resume coumadin at heme suggestion, bridging currently -Heme consult in place (3) Anemia Current Visit: No Status: Acute Code(s): D64.9 - ANEMIA, UNSPECIFIED SNOMED Code(s): 352092933 Comment: -PANCYTOPENIA seen, now with leukopenia -Send SPEP, r/o spike given renal insuff and fracture -CT C/A/P (4) A-fib Current Visit: No Status: Acute Code(s): I48.91 - UNSPECIFIED ATRIAL FIBRILLATION SNOMED Code(s): 19665563 Comment: - Continue metoprolol for rate control - Lovenox/warfarin for AC (5) Chronic kidney disease Current Visit: No Status: Acute Code(s): N18.9 - CHRONIC KIDNEY DISEASE, UNSPECIFIED SNOMED Code(s): 076450132 Comment: - Stable, no contraindication for contrast (6) Diastolic CHF Current Visit: No Status: Acute Code(s): I50.30 - UNSPECIFIED DIASTOLIC ( CONGESTIVE) HEART FAILURE SNOMED Code(s): 093453615 Comment: -No acute exacerbation, continue home torsemide (7) Physical deconditioning Current Visit: No Status: Acute Code(s): R53.81 - OTHER MALAISE SNOMED Code(s): 86022147489310 Comment: - PT/OT (8) Constipation Current Visit: No Status: Acute Priority: Medium Code(s): K59.00 - CONSTIPATION, UNSPECIFIED SNOMED Code(s): 95472988 Comment: - Will add MOM to miralax BID and Lubiprostone BID - Suppository this evening (9) Chronic obstructive pulmonary disease (COPD) Current Visit: No Status: Acute Code(s): J44.9 - CHRONIC OBSTRUCTIVE PULMONARY DISEASE, UNSPECIFIED SNOMED Code(s): 37549044 Comment: - Home inhalers (10) DVT prophylaxis Current Visit: No Status: Acute Code(s): SOS0036 - SNOMED Code(s): 744381592 Comment: -Lovenox, changing back to warfarin 2.5mg tonight with last lovenox dose as bridge, INR daily (11) Full code status Current Visit: No Status: Acute Code(s): Z78.9 - OTHER SPECIFIED HEALTH STATUS SNOMED Code(s): 404119592 Status and Disposition: Inpatient, will likely need DEBBIE
[2018-11-15] MEDS ORDERED: Iodixanol* (CONTRAST) 320 MG/ML 100 ML SDV IV ONE (13:31)
[2018-11-15] MEDS: Magnesium Hydroxide LIQ* 30 ML UDC PO SCH ×2 (15:13→21:25)
[2018-11-15] MEDS: Torsemide TAB 10 MG PO SCH (15:14)
[2018-11-15] MEDS: Metoprolol Succinate XL TAB* 25 MG PO SCH (15:14)
[2018-11-15] MEDS: Polyethylene Glycol 3350* 17 GM PACKET PO SCH ×2 (15:14→21:25)
[2018-11-15] MEDS: Calcium Polycarbophil TAB* 625 MG PO SCH ×2 (15:14→21:25)
[2018-11-15] MEDS: Cholecalciferol TAB* 400 UNIT PO SCH (15:14)
[2018-11-15] MEDS: CMCS: Lubiprostone 24 MCG CAP (NF) PO SCH ×2 (15:15→21:26)
[2018-11-15] MEDS: Pregabalin CAP(*) 50 MG PO SCH ×2 (15:15→21:25)
[2018-11-15] MEDS: Spironolactone TAB* 25 MG PO SCH (15:15)
[2018-11-15] MEDS: Famotidine TAB* 20 MG PO SCH (15:22)
[2018-11-15 15:37] LABS: INR 1.35 (0.82-1.09)
[2018-11-15] MEDS: Warfarin TAB(*) 2.5 MG PO SCH (17:20)
[2018-11-15] MEDS: traZODone TAB* 50 MG TAB PO SCH (21:25)
[2018-11-16] MEDS: oxyCODONE TAB* 5 MG TAB PO PRN ×3 (00:43→18:01)
[2018-11-16] MEDS: Acetaminophen TAB* 325 MG PO SCH ×4 (05:31→22:50)
[2018-11-16] MEDS: Levothyroxine TAB* 25 MCG TAB PO SCH (05:34)
[2018-11-16 07:03] LABS: INR 1.32 (0.82-1.09)
--- NOTE | 2018-11-16 07:18 | PN ---
Subjective Date of Service: 11/16/18 Interval History: HD #5 on 11/16 88 yo F with PMH HFpEF, Afib on AC, CKD, chronic pain on group home opiate therapy, who presented with L ala sacral insufficiency fracture and L non occlusive femoral DVT, possible R LE occlusive DVT already on coumadin, admitted for pain control and conservative mgmt-MRI of pelvis showing ? bony met on R pelvis (not site of fracture) Overnight no acute events, VSS Got CT C/A/P yesterday showing L plerual effusion, unclear sig with no other e/ o tumor burden to account for met, known HFpEF, on volume control, no sig change in oxygen demands. Labs this AM: INR remains subth, though on tx dose lovenox still This morning pt did have BM, but still complains of cramps and some distention, did tolerate breakfast, pain is decent control, still has some constipation and we are treating this currently. Numerous discussions with patient about MRI and hip fracture, unclear sig, we discuss CT CAP reassuring, pt appears to have a generally depressed look on life, and did discuss option of a less aggressive approach which she denied. Reports "I would want to know everything" and can explain back to me her current condition as "spot on my R hip and fracture of my L pelvis" Denies CP, chronic SOB unchanged, GI with above complaints , denies complaints Objective Active Medications: Acetaminophen (Tylenol Tab*) 650 mg PO Q6H [facility] Last Admin: 11/16/18 05:31 Dose: 650 mg Albuterol/Ipratropium (Duoneb (Albuterol 2.5 Mg/Ipratropium 0.5 Mg)) 1 neb INH TID PRN PRN Reason: SOB/WHEEZING Calcium Polycarbophil (Fibercon Tab*) 625 mg PO BID [facility] Last Admin: 11/15/18 21:25 Dose: 625 mg Cholecalciferol (Vitamin D Tab*) 1,600 unit PO DAILY [facility] Last Admin: 11/15/18 15:14 Dose: 1,600 unit Enoxaparin Sodium (Lovenox(*)) 60 mg SUBCUT Q24H [facility] Last Admin: 11/15/18 10:28 Dose: 60 mg Famotidine (Pepcid Tab*) 20 mg PO EVERY OTHER DAY [facility]; Protocol Last Admin: 11/15/18 15:22 Dose: Not Given Levothyroxine Sodium (Synthroid Tab*) 12.5 mcg PO QAM@0600 [facility] Last Admin: 11/16/18 05:34 Dose: 12.5 mcg Lidocaine (Lidoderm 5% Patch*) 1 patch TRANSDERM DAILY PRN PRN Reason: PAIN Last Admin: 11/14/18 08:49 Dose: 1 patch Lorazepam (Ativan Tab(*)) 0.5 mg PO BEDTIME PRN PRN Reason: SLEEP Lubiprostone (Amitiza (Nf)) 24 mcg PO BID [facility] Last Admin: 11/15/18 21:26 Dose: 24 mcg Magnesium Hydroxide (Milk Of Magnesia Liq*) 30 ml PO BID [facility] Last Admin: 11/15/18 21:25 Dose: 30 ml Metoprolol Succinate (Toprol Xl Tab*) 37.5 mg PO DAILY [facility] Last Admin: 11/15/18 15:14 Dose: 37.5 mg Mometasone Furoate/Formoterol Fumar (Dulera 200/5 Mdi*) 2 puff INH BID [facility]; Protocol Last Admin: 11/15/18 19:31 Dose: 2 puff Nitroglycerin (Nitroglycerin Tab 0.4 Mg*) 0.4 mg SL Q5M PRN PRN Reason: PAIN - CHEST Ondansetron HCl (Zofran Inj*) 4 mg IV Q6H PRN PRN Reason: NAUSEA Oxycodone HCl (Roxycodone Tab*) 10 mg PO Q6H PRN PRN Reason: PAIN Last Admin: 11/16/18 00:43 Dose: 10 mg Polyethylene Glycol/Electrolytes (Miralax*) 17 gm PO BID [facility] Last Admin: 11/15/18 21:25 Dose: 17 gm Pregabalin (Lyrica Cap(*)) 50 mg PO Q12H [facility] Last Admin: 11/15/18 21:25 Dose: 50 mg Simethicone (Mylicon Tab*) 80 mg PO Q6HR PRN PRN Reason: gas Last Admin: 11/12/18 20:58 Dose: 80 mg Sodium Chloride (Sodium Chloride 0.65% Nasal [place]*) 2 spray BOTH NARES DAILY PRN PRN Reason: CONGESTION Spironolactone (Aldactone Tab*) 25 mg PO DAILY [facility] Last Admin: 11/15/18 15:15 Dose: 25 mg Tiotropium [place] (Spiriva Cap.Inh*) 1 cap INH DAILY [facility] Last Admin: 11/15/18 08:10 Dose: 1 cap Torsemide (Torsemide) 40 mg PO DAILY [facility] Last Admin: 11/15/18 15:14 Dose: 40 mg Trazodone HCl (Desyrel Tab*) 25 mg PO BEDTIME [facility] Last Admin: 11/15/18 21:25 Dose: 25 mg Warfarin Sodium (Coumadin Tab(*)) 3 mg PO DAILY@1700 [facility]; Protocol Last Admin: 11/15/18 17:20 Dose: 3 mg Vital Signs - 8 hr 11/15/18 11/16/18 11/16/18 23:23 00:43 00:53 Temperature 97.3 F Pulse Rate 76 Respiratory 16 16 Rate Blood Pressure 98/51 (mmHg) O2 Sat by Pulse 100 99 Oximetry 11/16/18 11/16/18 11/16/18 01:44 03:28 03:53 Temperature 97.3 F Pulse Rate 70 Respiratory 16 16 18 Rate Blood Pressure 104/48 (mmHg) O2 Sat by Pulse 99 Oximetry Oxygen Devices in Use Now: Nasal Cannula Appearance: Woman in NAD sitting in chair Eyes: No Scleral Icterus, PERRLA Ears/Nose/Mouth/Throat: NL Teeth, Lips, Gums, Clear Oropharnyx Neck: NL Appearance and Movements; NL JVP, Trachea Midline Respiratory: Symmetrical Chest Expansion and Respiratory Effort, - - Dimisnbhed to L lung base, no wheeze Cardiovascular: NL Sounds; No Murmurs; No JVD, - - irreg Abdominal: - - Distention, distorted soft though, recent BM, hypoactive Extremities: No Edema Skin: No Rash or Ulcers Neurological: Alert and Oriented x 3 Result Diagrams: 11/15/18 05:42 11/16/18 06:32 Microbiology and Other Data: Microbiology 11/12/18 15:53 Aerobic Blood Culture - Preliminary Blood Venous No Growth Day 1 Anaerobic Blood Culture - Preliminary No Growth Day 1 11/12/18 14:43 Aerobic Blood Culture - Preliminary Blood Venous No Growth Day 1 Anaerobic Blood Culture - Preliminary No Growth Day 1 Assess/Plan/Problems-Billing Assessment: 88 yo F with PMH HFpEF, Afib on AC, CKD, chronic pain on group home opiate therapy, who presented with L ala sacral insufficiency fracture and L non occlusive femoral DVT, possible R LE occlusive DVT already on coumadin, admitted for pain control and conservative mgmt, MRI of pelvis also showing ? bony met, undergoing onc workup - Patient Problems (1) Sacral insufficiency fracture Current Visit: Yes Status: Acute Code(s): M84.48XA - PATHOLOGICAL FRACTURE, OTHER SITE, INIT ENCNTR FOR FRACTURE SNOMED Code(s): 990699424 Comment: -Orthopedics consulted-no intervention. -Pain control Oxy 10mg up to q 6 at baseline, standing Tylenol, pregabalin -PT/OT -MRI of pelvis shwoing R sided ? possible met, not at site of pain or fracture, she denies R hip pain (2) Femoral DVT (deep venous thrombosis) Current Visit: Yes Status: Acute Code(s): I82.419 - ACUTE EMBOLISM AND THROMBOSIS OF UNSPECIFIED FEMORAL VEIN SNOMED Code(s): 481872821 Comment: -Therapetuic on coumadin at presentation, changed to Lovenox, will resume coumadin at heme suggestion, bridging currently -Heme consult in place (3) Anemia Current Visit: No Status: Acute Code(s): D64.9 - ANEMIA, UNSPECIFIED SNOMED Code(s): 671060015 Comment: -PANCYTOPENIA seen, now with leukopenia -Send SPEP, r/o spike given renal insuff and fracture -CT C/A/P with only pulm effusion-unclear sig -FOBT pending, B12 pending -Iron def at [facility] (4) A-fib Current Visit: No Status: Acute Code(s): I48.91 - UNSPECIFIED ATRIAL FIBRILLATION SNOMED Code(s): 64900359 Comment: - Continue metoprolol for rate control - Lovenox/warfarin for AC (5) Chronic kidney disease Current Visit: No Status: Acute Code(s): N18.9 - CHRONIC KIDNEY DISEASE, UNSPECIFIED SNOMED Code(s): 393404169 Comment: - Stable, no contraindication for contrast (6) Diastolic CHF Current Visit: No Status: Acute Code(s): I50.30 - UNSPECIFIED DIASTOLIC ( CONGESTIVE) HEART FAILURE SNOMED Code(s): 075200387 Comment: -No acute exacerbation, continue home torsemide (7) Physical deconditioning Current Visit: No Status: Acute Code(s): R53.81 - OTHER MALAISE SNOMED Code(s): 55468453565385 Comment: - PT/OT (8) Constipation Current Visit: No Status: Acute Priority: Medium Code(s): K59.00 - CONSTIPATION, UNSPECIFIED SNOMED Code(s): 68695628 Comment: - Will add MOM to miralax BID and Lubiprostone BID - Suppository PRN - OPiate induced, pain regimen is pts HOME regimen (9) Chronic obstructive pulmonary disease (COPD) Current Visit: No Status: Acute Code(s): J44.9 - CHRONIC OBSTRUCTIVE PULMONARY DISEASE, UNSPECIFIED SNOMED Code(s): 05390940 Comment: - Home inhalers (10) DVT prophylaxis Current Visit: No Status: Acute Code(s): OQJ6516 - SNOMED Code(s): 993096113 Comment: -Lovenox, changing back to warfarin 2.5mg tonight with last lovenox dose as bridge, INR daily (11) Full code status Current Visit: No Status: Acute Code(s): Z78.9 - OTHER SPECIFIED HEALTH STATUS SNOMED Code(s): 714017667 Status and Disposition: Inpatient, will likely need DEBBIE
[2018-11-16 07:19] LABS: BUN/Creatinine Ratio 28.5 (8-20); Calcium 8.4 mg/dL (8.6-10.3); EGFR African American 49.9 (>60); EGFR Non-African American 41.2 (>60); Potassium 4.3 mmol/L (3.5-5.0)
[2018-11-16] MEDS: Mometasone/Formoter 200/5 MDI INH SCH ×2 (07:35→21:02)
[2018-11-16] MEDS: Tiotropium CAP.INH* CAP.INH/18 MCG (USE ORDER SET !) INH SCH (07:35)
[2018-11-16] MEDS: Torsemide TAB 10 MG PO SCH (08:57)
[2018-11-16] MEDS: Cholecalciferol TAB* 400 UNIT PO SCH (08:57)
[2018-11-16] MEDS: Pregabalin CAP(*) 50 MG PO SCH ×2 (08:57→20:16)
[2018-11-16] MEDS: Calcium Polycarbophil TAB* 625 MG PO SCH ×2 (08:57→19:55)
[2018-11-16] MEDS: Spironolactone TAB* 25 MG PO SCH (08:58)
[2018-11-16] MEDS: Metoprolol Succinate XL TAB* 25 MG PO SCH ×2 (08:58→10:00)
[2018-11-16] MEDS: Polyethylene Glycol 3350* 17 GM PACKET PO SCH ×2 (08:59→19:19)
[2018-11-16] MEDS: Magnesium Hydroxide LIQ* 30 ML UDC PO SCH ×2 (08:59→19:59)
[2018-11-16] MEDS: Enoxaparin(*) 60 MG/0.6 ML SYR SUBCUT SCH (08:59)
[2018-11-16] MEDS ORDERED: Bisacodyl SUPP* 10 MG SUPP PR ONE (12:29)
[2018-11-16] MEDS ORDERED: Bisacodyl SUPP* 10 MG SUPP PR PRN (12:43)
[2018-11-16] MEDS: CMCS: Lubiprostone 24 MCG CAP (NF) PO SCH ×2 (12:52→19:58)
[2018-11-16] MEDS: Warfarin TAB(*) 2.5 MG PO SCH (17:55)
[2018-11-16] MEDS: Warfarin TAB(*) 3 MG PO SCH (17:55)
[2018-11-16] MEDS: traZODone TAB* 50 MG TAB PO SCH (20:15)
[2018-11-17] MEDS: Acetaminophen TAB* 325 MG PO SCH ×4 (04:21→23:28)
[2018-11-17] MEDS: Levothyroxine TAB* 25 MCG TAB PO SCH (05:50)
[2018-11-17] MEDS: oxyCODONE TAB* 5 MG TAB PO PRN ×3 (05:51→20:07)
[2018-11-17 07:04] LABS: ABS Eosinophils 0.1 10^3/ul (0-0.6); ABS Lymphocytes 1.4 10^3/ul (1.0-4.8); ABS Monocytes 0.3 10^3/ul (0-0.8); ABS Neutrophils 1.4 10^3/ul (1.5-7.7); Eosinophil % 1.6 %; Hematocrit 28 % (35-47); Hemoglobin 8.8 g/dL (12.0-16.0); Lymphocyte % 42.9 %; Mean Corpuscular HGB Conc 31 g/dL (31-36); Mean Corpuscular Hemoglobin 26 pg (27-31); Mean Corpuscular Volume 84 fL (80-97); Mean Platelet Volume 8.4 fL (7.4-10.4); Platelet Count 112 10^3/uL (150-450); Red Blood Count 3.39 10^6 /uL (3.70-4.87); Red Cell Distribution Width 19 % (10.5-15); White Blood Count 3.2 10^3/uL (3.5-10.8)
[2018-11-17 07:09] LABS: INR 1.49 (0.82-1.09)
[2018-11-17 07:32] LABS: Calcium 8.5 mg/dL (8.6-10.3); EGFR African American 47.2 (>60); Potassium 4.6 mmol/L (3.5-5.0)
[2018-11-17] MEDS: Tiotropium CAP.INH* CAP.INH/18 MCG (USE ORDER SET !) INH SCH (09:18)
[2018-11-17] MEDS: Mometasone/Formoter 200/5 MDI INH SCH ×2 (09:18→21:00)
[2018-11-17] MEDS: Famotidine TAB* 20 MG PO SCH (09:33)
[2018-11-17] MEDS: Torsemide TAB 10 MG PO SCH (09:34)
[2018-11-17] MEDS: Metoprolol Succinate XL TAB* 25 MG PO SCH (09:34)
[2018-11-17] MEDS: CMCS: Lubiprostone 24 MCG CAP (NF) PO SCH ×2 (09:35→20:02)
[2018-11-17] MEDS: Spironolactone TAB* 25 MG PO SCH (09:35)
[2018-11-17] MEDS: Calcium Polycarbophil TAB* 625 MG PO SCH ×2 (09:35→20:03)
[2018-11-17] MEDS: Cholecalciferol TAB* 400 UNIT PO SCH (09:36)
[2018-11-17] MEDS: Enoxaparin(*) 60 MG/0.6 ML SYR SUBCUT SCH (09:36)
[2018-11-17] MEDS: Magnesium Hydroxide LIQ* 30 ML UDC PO SCH ×2 (09:36→20:02)
[2018-11-17] MEDS: Polyethylene Glycol 3350* 17 GM PACKET PO SCH ×2 (09:38→20:02)
[2018-11-17] MEDS: Pregabalin CAP(*) 50 MG PO SCH ×2 (10:01→21:00)
[2018-11-17 15:30] LABS: Albumin 2.4 g/dL (3.4-4.7); Gamma Globulin 1.2 g/dL (0.6-1.6); Total Protein(PEP) 5.5 g/dL (6.3 - 7.9)
--- NOTE | 2018-11-17 16:26 | PN ---
Subjective Date of Service: 11/17/18 Interval History: Patient seen still complaining of severe pain of her left hip. Sitting in chair. no acute distress. BP low this afternoon but asymptomatic. alert and follows command Social History: Unchanged from Admission Past Medical History: Unchanged from Admission Objective Active Medications: Acetaminophen (Tylenol Tab*) 650 mg PO Q6H [facility] Last Admin: 11/17/18 11:55 Dose: 650 mg Albuterol/Ipratropium (Duoneb (Albuterol 2.5 Mg/Ipratropium 0.5 Mg)) 1 neb INH TID PRN PRN Reason: SOB/WHEEZING Bisacodyl (Dulcolax Supp*) 10 mg [place] DAILY PRN PRN Reason: CONSTIPATION Calcium Polycarbophil (Fibercon Tab*) 625 mg PO BID [facility] Last Admin: 11/17/18 09:35 Dose: 625 mg Cholecalciferol (Vitamin D Tab*) 1,600 unit PO DAILY [facility] Last Admin: 11/17/18 09:36 Dose: 1,600 unit Enoxaparin Sodium (Lovenox(*)) 60 mg SUBCUT Q24H [facility] Last Admin: 11/17/18 09:36 Dose: 60 mg Famotidine (Pepcid Tab*) 20 mg PO EVERY OTHER DAY [facility]; Protocol Last Admin: 11/17/18 09:33 Dose: 20 mg Levothyroxine Sodium (Synthroid Tab*) 12.5 mcg PO QAM@0600 [facility] Last Admin: 11/17/18 05:50 Dose: 12.5 mcg Lidocaine (Lidoderm 5% Patch*) 1 patch TRANSDERM DAILY PRN PRN Reason: PAIN Last Admin: 11/14/18 08:49 Dose: 1 patch Lorazepam (Ativan Tab(*)) 0.5 mg PO BEDTIME PRN PRN Reason: SLEEP Lubiprostone (Amitiza (Nf)) 24 mcg PO BID [facility] Last Admin: 11/17/18 09:35 Dose: 24 mcg Magnesium Hydroxide (Milk Of Magnesia Liq*) 30 ml PO BID [facility] Last Admin: 11/17/18 09:36 Dose: Not Given Metoprolol Succinate (Toprol Xl Tab*) 37.5 mg PO DAILY [facility] Last Admin: 11/17/18 09:34 Dose: 37.5 mg Mometasone Furoate/Formoterol Fumar (Dulera 200/5 Mdi*) 2 puff INH BID [facility]; Protocol Last Admin: 11/17/18 09:18 Dose: 2 puff Nitroglycerin (Nitroglycerin Tab 0.4 Mg*) 0.4 mg SL Q5M PRN PRN Reason: PAIN - CHEST Ondansetron HCl (Zofran Inj*) 4 mg IV Q6H PRN PRN Reason: NAUSEA Last Admin: 11/16/18 12:58 Dose: 4 mg Oxycodone HCl (Roxycodone Tab*) 10 mg PO Q6H PRN PRN Reason: PAIN Last Admin: 11/17/18 11:56 Dose: 10 mg Polyethylene Glycol/Electrolytes (Miralax*) 17 gm PO BID [facility] Last Admin: 11/17/18 09:38 Dose: Not Given Pregabalin (Lyrica Cap(*)) 50 mg PO Q12H [facility] Last Admin: 11/17/18 10:01 Dose: 50 mg Simethicone (Mylicon Tab*) 80 mg PO Q6HR PRN PRN Reason: gas Last Admin: 11/12/18 20:58 Dose: 80 mg Sodium Chloride (Sodium Chloride 0.65% Nasal [place]*) 2 spray BOTH NARES DAILY PRN PRN Reason: CONGESTION Spironolactone (Aldactone Tab*) 25 mg PO DAILY [facility] Last Admin: 11/17/18 09:35 Dose: 25 mg Tiotropium [place] (Spiriva Cap.Inh*) 1 cap INH DAILY [facility] Last Admin: 11/17/18 09:18 Dose: 1 cap Torsemide (Torsemide) 40 mg PO DAILY [facility] Last Admin: 11/17/18 09:34 Dose: 40 mg Trazodone HCl (Desyrel Tab*) 25 mg PO BEDTIME [facility] Last Admin: 11/16/18 20:15 Dose: 25 mg Warfarin Sodium (Coumadin Tab(*)) 3 mg PO DAILY@1700 [facility]; Protocol Last Admin: 11/16/18 17:55 Dose: 3 mg Vital Signs - 8 hr 11/17/18 11/17/18 11/17/18 09:19 10:01 11:13 Temperature 98.2 F Pulse Rate 86 60 Respiratory 14 18 12 Rate Blood Pressure 103/51 (mmHg) O2 Sat by Pulse 95 100 Oximetry 11/17/18 11/17/18 11:56 16:06 Temperature Pulse Rate Respiratory 18 Rate Blood Pressure 88/50 (mmHg) O2 Sat by Pulse Oximetry Oxygen Devices in Use Now: Nasal Cannula Appearance: Awake, alert. no distress. flat affect Ears/Nose/Mouth/Throat: NL Teeth, Lips, Gums, Mucous Membranes Moist Neck: NL Appearance and Movements; NL JVP, Trachea Midline Respiratory: Symmetrical Chest Expansion and Respiratory Effort Cardiovascular: NL Sounds; No Murmurs; No JVD, - - irregular Abdominal: NL Sounds; No Tenderness; No Distention, - - obese Extremities: - - edema, significant pain with Active ROM left hip Neurological: Alert and Oriented x 3 Result Diagrams: 11/17/18 06:56 11/17/18 06:56 Microbiology and Other Data: Microbiology 11/12/18 15:53 Aerobic Blood Culture - Preliminary Blood Venous No Growth Day 1 Anaerobic Blood Culture - Preliminary No Growth Day 1 11/12/18 14:43 Aerobic Blood Culture - Preliminary Blood Venous No Growth Day 1 Anaerobic Blood Culture - Preliminary No Growth Day 1 Assess/Plan/Problems-Billing Assessment: 88 yo F with PMH HFpEF, Afib on AC, CKD, 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 bony met, undergoing onc workup - Patient Problems (1) Femoral DVT (deep venous thrombosis) Current Visit: Yes Status: Acute Code(s): I82.419 - ACUTE EMBOLISM AND THROMBOSIS OF UNSPECIFIED FEMORAL VEIN SNOMED Code(s): 768017820 Comment: - INR 1.5 currently (after being held pending hem/onc recommendations. (Her INR was therapetuic at presentation) - Now on Lovenox, while bridging her back with warfarin - Heme consult in place appreciated and they think her DVT is probably due to subetherapeutic INR between INR check. Recommended to resume warfarin and recheck US of leg in 6 weeks to ensure proper response to her Warfarin (2) Sacral insufficiency fracture Current Visit: Yes Status: Acute Code(s): M84.48XA - PATHOLOGICAL FRACTURE, OTHER SITE, INIT ENCNTR FOR FRACTURE SNOMED Code(s): 898653466 Comment: - Orthopedics consulted - no intervention. - Pain control Oxy 10mg up to q 6 at baseline, standing Tylenol, pregabalin - PT/OT - MRI of pelvis showing R sided lesion? possible mets, not at site of pain or fracture, she denies R hip pain. CT C/A/P no evidence of mets. (3) Chronic leg pain Current Visit: No Status: Chronic Priority: Medium Code(s): M79.606 - PAIN IN LEG, UNSPECIFIED; G89.29 - OTHER CHRONIC PAIN SNOMED Code(s): 41969698 Comment: - Pain control Oxy 10mg up to q 6 at baseline, standing Tylenol, pregabalin - PT/OT (4) A-fib Current Visit: No Status: Acute Code(s): I48.91 - UNSPECIFIED ATRIAL FIBRILLATION SNOMED Code(s): 27853203 Comment: - Continue metoprolol 37.5 mg daily for rate control - Lovenox/warfarin for AC (5) Anemia Current Visit: No Status: Acute Code(s): D64.9 - ANEMIA, UNSPECIFIED SNOMED Code(s): 329917398 Comment: - PANCYTOPENIA seen, now with leukopenia - Send SPEP, r/o spike given renal insuff and fracture. Result negative for M spike - CT C/A/P with only pulm effusion-unclear sig - FOBT pending, B12 low normal 253, Iron def wiht low sat and low Iron level. will start B complex, iron supplement (6) Anxiety Current Visit: No Status: Acute Code(s): F41.9 - ANXIETY DISORDER, UNSPECIFIED SNOMED Code(s): 06613498 Comment: - continue Trazodone and ativan prn (7) CKD (chronic kidney disease) Current Visit: No Status: Acute Code(s): N18.9 - CHRONIC KIDNEY DISEASE, UNSPECIFIED SNOMED Code(s): 510014400 Comment: -Stable (8) Constipation Current Visit: No Status: Acute Priority: Medium Code(s): K59.00 - CONSTIPATION, UNSPECIFIED SNOMED Code(s): 80031793 Comment: - MOM and miralax BID and Lubiprostone BID - Suppository PRN - Opiate induced, pain regimen is pts HOME regimen (9) Diastolic CHF Current Visit: No Status: Acute Code(s): I50.30 - UNSPECIFIED DIASTOLIC ( CONGESTIVE) HEART FAILURE SNOMED Code(s): 629545915 Comment: -No acute exacerbation, continue home torsemide 40 mg and aldactone 25 mg daily (10) Full code status Current Visit: No Status: Acute Onset Date: 10/14/14 Code(s): Z78.9 - OTHER SPECIFIED HEALTH STATUS SNOMED Code(s): 765049371 (11) Physical deconditioning Current Visit: No Status: Acute Code(s): R53.81 - OTHER MALAISE SNOMED Code(s): 52503784597634 Comment: - PT/OT (12) Hypothyroidism Current Visit: No Status: Chronic Code(s): E03.9 - HYPOTHYROIDISM, UNSPECIFIED SNOMED Code(s): 29659262 Comment: - Continue current levothyroxine dose (13) DVT prophylaxis Current Visit: No Status: Acute Onset Date: 10/14/14 Code(s): GZQ2981 - SNOMED Code(s): 004006445 Comment: - On warfarin Status and Disposition: Inpatient, will likely need DEBBIE
[2018-11-17] MEDS: Warfarin TAB(*) 3 MG PO SCH (17:34)
[2018-11-17] MEDS: traZODone TAB* 50 MG TAB PO SCH (21:00)
[2018-11-18] MEDS: oxyCODONE TAB* 5 MG TAB PO PRN ×4 (01:51→23:33)
[2018-11-18] MEDS: Acetaminophen TAB* 325 MG PO SCH ×4 (05:40→22:59)
[2018-11-18] MEDS: Levothyroxine TAB* 25 MCG TAB PO SCH (05:44)
[2018-11-18 07:33] LABS: ABS Lymphocytes 1.5 10^3/ul (1.0-4.8); ABS Monocytes 0.3 10^3/ul (0-0.8); ABS Neutrophils 1.6 10^3/ul (1.5-7.7); Hematocrit 26 % (35-47); Hemoglobin 8.3 g/dL (12.0-16.0); Lymphocyte % 43.8 %; Mean Corpuscular HGB Conc 32 g/dL (31-36); Mean Corpuscular Hemoglobin 26 pg (27-31); Mean Corpuscular Volume 84 fL (80-97); Mean Platelet Volume 8.3 fL (7.4-10.4); Platelet Count 118 10^3/uL (150-450); Red Blood Count 3.15 10^6 /uL (3.70-4.87); Red Cell Distribution Width 19 % (10.5-15); White Blood Count 3.5 10^3/uL (3.5-10.8)
[2018-11-18 07:44] LABS: INR 1.73 (0.82-1.09)
[2018-11-18 08:09] LABS: BUN/Creatinine Ratio 33.3 (8-20); Calcium 8.2 mg/dL (8.6-10.3); EGFR African American 49.9 (>60); EGFR Non-African American 41.2 (>60); Magnesium 2.7 mg/dL (1.9-2.7); Phosphorus 3.4 mg/dL (2.5-5.0); Potassium 4.6 mmol/L (3.5-5.0)
[2018-11-18] MEDS: Vitamin B Complex TAB PO SCH (08:55)
[2018-11-18] MEDS: CMCS: Lubiprostone 24 MCG CAP (NF) PO SCH ×2 (08:56→20:44)
[2018-11-18] MEDS: Cholecalciferol TAB* 400 UNIT PO SCH (08:56)
[2018-11-18] MEDS: Torsemide TAB 10 MG PO SCH (08:57)
[2018-11-18] MEDS: Calcium Polycarbophil TAB* 625 MG PO SCH ×2 (08:57→20:45)
[2018-11-18] MEDS: Ferrous Sulfate TAB* 325 MG PO SCH (08:58)
[2018-11-18] MEDS: Metoprolol Succinate XL TAB* 25 MG PO SCH (08:58)
[2018-11-18] MEDS: Pregabalin CAP(*) 50 MG PO SCH ×2 (08:59→20:45)
[2018-11-18] MEDS: Enoxaparin(*) 60 MG/0.6 ML SYR SUBCUT SCH (09:00)
[2018-11-18] MEDS: Polyethylene Glycol 3350* 17 GM PACKET PO SCH ×2 (09:02→19:41)
[2018-11-18] MEDS: Magnesium Hydroxide LIQ* 30 ML UDC PO SCH ×2 (09:02→19:41)
[2018-11-18] MEDS: Mometasone/Formoter 200/5 MDI INH SCH ×2 (09:38→19:15)
[2018-11-18] MEDS: Tiotropium CAP.INH* CAP.INH/18 MCG (USE ORDER SET !) INH SCH (09:38)
--- NOTE | 2018-11-18 10:48 | PN ---
Progress Note - Progress Note Date of Service: 11/18/18 SOAP: Subjective: [Still has c/o hip pain. No other changes in symptoms.] Objective: [ Laboratory Results - last 24 hr 11/14/18 11/18/18 11/18/18 06:36 07:14 07:15 WBC 3.5 RBC 3.15 L Hgb 8.3 L Hct 26 L MCV 84 MCH 26 L MCHC 32 RDW 19 H Plt Count 118 L MPV 8.3 Neut % (Auto) 45.4 Lymph % (Auto) 43.8 [place] % (Auto) 9.3 Eos % (Auto) 1.0 Baso % (Auto) 0.5 Absolute Neuts (auto) 1.6 Absolute Lymphs (auto) 1.5 Absolute Monos (auto) 0.3 Absolute Eos (auto) 0.0 Absolute Basos (auto) 0.0 Absolute Nucleated RBC 0.0 Nucleated RBC % 0.0 INR (Anticoag Therapy) 1.73 H Sodium Potassium Chloride Carbon Dioxide Anion Gap BUN Creatinine Est GFR ( Amer) Est GFR (Non-Af Amer) BUN/Creatinine Ratio Glucose Calcium Phosphorus Magnesium Total Protein (PEP) 5.5 L Albumin (PEP) 2.4 L Albumin/Globulin (PEP) 0.80 Nwvnc-8-Ehplbmqdc 0.2 Yzroa-8-Ksjhafpjj 0.8 Udfu-1-Kagcudwm 0.8 Gamma Globulins 1.2 PEP Impression See comment 11/18/18 07:15 WBC RBC Hgb Hct MCV MCH MCHC RDW Plt Count MPV Neut % (Auto) Lymph % (Auto) [place] % (Auto) Eos % (Auto) Baso % (Auto) Absolute Neuts (auto) Absolute Lymphs (auto) Absolute Monos (auto) Absolute Eos (auto) Absolute Basos (auto) Absolute Nucleated RBC Nucleated RBC % INR (Anticoag Therapy) Sodium 137 Potassium 4.6 Chloride 101 Carbon Dioxide 34 H Anion Gap 2 BUN 41 H Creatinine 1.23 H Est GFR ( Amer) 49.9 Est GFR (Non-Af Amer) 41.2 BUN/Creatinine Ratio 33.3 H Glucose 95 Calcium 8.2 L Phosphorus 3.4 Magnesium 2.7 Total Protein (PEP) Albumin (PEP) Albumin/Globulin (PEP) Cbdpn-7-Rggmgtubu Gcclm-5-Kkphcmiab Celd-0-Ajaxqwfj Gamma Globulins PEP Impression Acetaminophen (Tylenol Tab*) 650 mg PO Q6H [facility] Last Admin: 11/18/18 05:40 Dose: 650 mg Albuterol/Ipratropium (Duoneb (Albuterol 2.5 Mg/Ipratropium 0.5 Mg)) 1 neb INH TID PRN PRN Reason: SOB/WHEEZING Bisacodyl (Dulcolax Supp*) 10 mg [place] DAILY PRN PRN Reason: CONSTIPATION Calcium Polycarbophil (Fibercon Tab*) 625 mg PO BID [facility] Last Admin: 11/18/18 08:57 Dose: 625 mg Cholecalciferol (Vitamin D Tab*) 1,600 unit PO DAILY [facility] Last Admin: 11/18/18 08:56 Dose: 1,600 unit Enoxaparin Sodium (Lovenox(*)) 60 mg SUBCUT Q24H [facility] Last Admin: 11/18/18 09:00 Dose: 60 mg Famotidine (Pepcid Tab*) 20 mg PO EVERY OTHER DAY [facility]; Protocol Last Admin: 11/17/18 09:33 Dose: 20 mg Ferrous Sulfate (Ferrous Sulfate Tab*) 325 mg PO DAILY [facility] Last Admin: 11/18/18 08:58 Dose: 325 mg Levothyroxine Sodium (Synthroid Tab*) 12.5 mcg PO QAM@0600 [facility] Last Admin: 11/18/18 05:44 Dose: 12.5 mcg Lidocaine (Lidoderm 5% Patch*) 1 patch TRANSDERM DAILY PRN PRN Reason: PAIN Last Admin: 11/14/18 08:49 Dose: 1 patch Lorazepam (Ativan Tab(*)) 0.5 mg PO BEDTIME PRN PRN Reason: SLEEP Lubiprostone (Amitiza (Nf)) 24 mcg PO BID [facility] Last Admin: 11/18/18 08:56 Dose: 24 mcg Magnesium Hydroxide (Milk Of Magnesia Liq*) 30 ml PO BID [facility] Last Admin: 11/18/18 09:02 Dose: Not Given Metoprolol Succinate (Toprol Xl Tab*) 37.5 mg PO DAILY [facility] Last Admin: 11/18/18 08:58 Dose: 37.5 mg Mometasone Furoate/Formoterol Fumar (Dulera 200/5 Mdi*) 2 puff INH BID [facility]; Protocol Last Admin: 11/18/18 09:38 Dose: 2 puff Nitroglycerin (Nitroglycerin Tab 0.4 Mg*) 0.4 mg SL Q5M PRN PRN Reason: PAIN - CHEST Ondansetron HCl (Zofran Inj*) 4 mg IV Q6H PRN PRN Reason: NAUSEA Last Admin: 11/16/18 12:58 Dose: 4 mg Oxycodone HCl (Roxycodone Tab*) 10 mg PO Q6H PRN PRN Reason: PAIN Last Admin: 11/18/18 08:59 Dose: 10 mg Polyethylene Glycol/Electrolytes (Miralax*) 17 gm PO BID [facility] Last Admin: 11/18/18 09:02 Dose: Not Given Pregabalin (Lyrica Cap(*)) 50 mg PO Q12H [facility] Last Admin: 11/18/18 08:59 Dose: 50 mg Simethicone (Mylicon Tab*) 80 mg PO Q6HR PRN PRN Reason: gas Last Admin: 11/12/18 20:58 Dose: 80 mg Sodium Chloride (Sodium Chloride 0.65% Nasal [place]*) 2 spray BOTH NARES DAILY PRN PRN Reason: CONGESTION Tiotropium [place] (Spiriva Cap.Inh*) 1 cap INH DAILY [facility] Last Admin: 11/18/18 09:38 Dose: 1 cap Torsemide (Torsemide) 40 mg PO DAILY [facility] Last Admin: 11/18/18 08:57 Dose: 40 mg Trazodone HCl (Desyrel Tab*) 25 mg PO BEDTIME [facility] Last Admin: 11/17/18 21:00 Dose: 25 mg Vitamin B Complex/Vitamin E (B Complex-50*) 1 tab PO DAILY [facility] Last Admin: 11/18/18 08:55 Dose: 1 tab Warfarin Sodium (Coumadin Tab(*)) 3 mg PO DAILY@1700 [facility]; Protocol Last Admin: 11/17/18 17:34 Dose: 3 mg Vital Signs: Temp Pulse Resp BP Pulse Ox 97.7 F 60 20 107/51 98 11/18/18 07:12 11/18/18 07:12 11/18/18 09:42 11/18/18 07:12 11/18/18 09:42 Exam: Gen: Elderly female sitting up in a chair in [facility] Resp: easy, regular respirations] Assessment: [88 yo female with chronic pain secondary to OA, afib anticoagulated with Coumadin, COPD, chronic anemia, thrombocytopenia and CKD who presented with c/o severe L hip pain found to have a sacral insufficiency fracture and bilateral LE DVTs. MRI of the pelvis suggested possibility of a metastatic lesion. CT C/ A/P is benign and does not demonstrate a corresponding lytic lesion in the pelvis suggesting there is no cortical disruption and less likely to be malignant in origin. SPEP has now been results and negative for Mspike.] Plan: [1. Sacral fracture - pain management per Hospitalist group - upon further review of imaging the MRI finding is more likely to benign and does not warrant biopsy at this time 2. Malignancy evaluation - CT C/A/P negative for malignancy - SPEP negative - no evidence for active malignancy 3. Anemia - iron and B12 deficiency, start supplementation - may be partially related to CKD, could consider erythropoetin levels depending on response to iron/B12 supplementation 4. Thrombocytopenia - possibly related to iron deficiency 5. DVT - cont Coumadin, bridge with Lovenox until INR is therapeutic - repeat LE doppler in 4-6 weeks to eval for clot progression 6. CKD - stable Dispo: heme/onc service will remain available as necessary but will not actively follow
--- NOTE | 2018-11-18 13:44 | CONS ---
CONSULTATION REPORT: DATE OF CONSULT: 11/17/18 HISTORY OF PRESENT ILLNESS: The patient is an 88-year-old female with past medical history of atrial fibrillation, chronic kidney disease, long-term opioid therapy, who presented to the emergency room on 11/12/18 with complaint of acute on chronic left hip pain with onset almost 3 months ago, gradually worsening to a severity of 9/10 which prompt her to present to the hospital. Pain is without radiation. The patient states that she has had no trauma, no fall. She has been able and continues to walk on the hip throughout her hospital course without any worsening of pain, though pain in the left hip remains without improvement. PAST MEDICAL HISTORY: 1. COPD. 2. Atrial fibrillation. 3. Diastolic heart failure. 4. Anxiety. 5. Coronary artery disease. 6. Tricuspid regurgitation. 7. Hyperlipidemia. 8. Chronic kidney disease. 9. Chronic pain, neuropathy. 10. Thrombocytopenia. 11. Hypertension. 12. Chronic lower extremity edema. 13. Hypothyroidism. PAST SURGICAL HISTORY: Hysterectomy, appendectomy, tonsillectomy, cholecystectomy, partial thyroidectomy, spinal surgery in the . ALLERGIES: FENTANYL, BACTRIM, CIPRO, PENICILLIN, CODEINE. FAMILY HISTORY: Father , CHF. Sister , bleeding ulcer. Mother , coronary artery disease. Brother , [place]. SOCIAL HISTORY: Former smoker, no alcohol use, no drug use. The patient uses a walker to ambulate at baseline which she is still able to ambulate using. REVIEW OF SYSTEMS: General: No fever or chills. Cardiac: No chest pain. Respiratory: No shortness of breath. GI: No nausea, vomiting, or diarrhea. : No dysuria. Musculoskeletal: Positive for left hip pain. No other extremity or joint pain. Neuro: Positive for decreased sensation bilateral lower extremities at baseline. PHYSICAL EXAM: Vital Signs: Temperature 98.4, pulse rate 64, respiratory rate 18, oxygen saturation 99% on 2 L, blood pressure 112/48. General: No acute distress, sitting comfortably in a chair. HEENT: Normocephalic, atraumatic. Extraocular movements intact. Cardio: S1, S2. Respiratory: Clear to auscultation bilaterally. Musculoskeletal: Bilateral upper extremities and right lower extremity skin envelop intact, nontender to palpation. Moves extremities well without pain. Left lower extremity, skin envelop intact. Mild tenderness to palpation into groin and posterior pelvis. Able to flex and extend the hip from 0 to 90 without pain, although she does have loud cracking noises which she reports have been present for months. She is able to sit-to- stand, stand to sit and ambulate with an antalgic gait to the left with a walker. Negative log roll of the hip. Neuro: Sensation intact to light touch throughout bilateral upper and lower extremities. DP +2 pulse bilaterally. Skin: No erythema about the left hip. IMAGING: MRI pelvis shows a right iliac bone concerning for mets as well as a right zone 1 and left zone 2 sacral insufficiency fracture. left hip primary osteoarthritis with associated joint effusion. LAB DATA: White blood cell count 3.2, red blood cell count 3.3, hemoglobin 8.8 , hematocrit 28. Sodium 139, potassium 4.6. ASSESSMENT: 1. Sacral insufficiency fracture. 2. Severe left hip osteoarthritis. PLAN/RECOMMENDATIONS: The patient can continue weightbearing as tolerated with a walker and with pain control. She should follow up with Orthopedic Oncology for bone lesions as well as any concern for pathologic fracture, this specialty is not available at [facility]. On 11/12/18, the emergency room discussed this type of fracture with Dr. Drake but no official consult was requested. As patient remained in the hospital and consult was in EHR, I saw the patient on 11/17/18. Dr Drake made aware, he agrees with the plan for nonoperative treatment and referral to Orthopedic Oncology as needed. Please contact Orthopedics with any worsening or any concerns. NEFTALI AQUINO [id number]/[facility] #: [id number] PORTER
[2018-11-18] MEDS: Warfarin TAB(*) 3 MG PO SCH (17:40)
--- NOTE | 2018-11-18 17:51 | PN ---
Subjective Date of Service: 11/18/18 Interval History: Awake, alert. She was sound asleep in her chair leaning to one side (right). When she was awaken she immediatly complaints of pain mainly her left hip. no acute events overnight. I appreciate hem/onc note. I discussed with ortho regarding her right hip bone lesion on MRI and recommended outpatient otho onc referral. no acute intervention at this time Social History: Unchanged from Admission Past Medical History: Unchanged from Admission Objective Active Medications: Acetaminophen (Tylenol Tab*) 650 mg PO Q6H [facility] Last Admin: 11/18/18 17:40 Dose: 650 mg Albuterol/Ipratropium (Duoneb (Albuterol 2.5 Mg/Ipratropium 0.5 Mg)) 1 neb INH TID PRN PRN Reason: SOB/WHEEZING Bisacodyl (Dulcolax Supp*) 10 mg NC DAILY PRN PRN Reason: CONSTIPATION Calcium Polycarbophil (Fibercon Tab*) 625 mg PO BID [facility] Last Admin: 11/18/18 08:57 Dose: 625 mg Cholecalciferol (Vitamin D Tab*) 1,600 unit PO DAILY [facility] Last Admin: 11/18/18 08:56 Dose: 1,600 unit Enoxaparin Sodium (Lovenox(*)) 60 mg SUBCUT Q24H [facility] Last Admin: 11/18/18 09:00 Dose: 60 mg Famotidine (Pepcid Tab*) 20 mg PO EVERY OTHER DAY [facility]; Protocol Last Admin: 11/17/18 09:33 Dose: 20 mg Ferrous Sulfate (Ferrous Sulfate Tab*) 325 mg PO DAILY [facility] Last Admin: 11/18/18 08:58 Dose: 325 mg Levothyroxine Sodium (Synthroid Tab*) 12.5 mcg PO QAM@0600 [facility] Last Admin: 11/18/18 05:44 Dose: 12.5 mcg Lidocaine (Lidoderm 5% Patch*) 1 patch TRANSDERM DAILY PRN PRN Reason: PAIN Last Admin: 11/14/18 08:49 Dose: 1 patch Lorazepam (Ativan Tab(*)) 0.5 mg PO BEDTIME PRN PRN Reason: SLEEP Lubiprostone (Amitiza (Nf)) 24 mcg PO BID [facility] Last Admin: 11/18/18 08:56 Dose: 24 mcg Magnesium Hydroxide (Milk Of Magnesia Liq*) 30 ml PO BID [facility] Last Admin: 11/18/18 09:02 Dose: Not Given Metoprolol Succinate (Toprol Xl Tab*) 37.5 mg PO DAILY [facility] Last Admin: 11/18/18 08:58 Dose: 37.5 mg Mometasone Furoate/Formoterol Fumar (Dulera 200/5 Mdi*) 2 puff INH BID [facility]; Protocol Last Admin: 11/18/18 09:38 Dose: 2 puff Nitroglycerin (Nitroglycerin Tab 0.4 Mg*) 0.4 mg SL Q5M PRN PRN Reason: PAIN - CHEST Ondansetron HCl (Zofran Inj*) 4 mg IV Q6H PRN PRN Reason: NAUSEA Last Admin: 11/16/18 12:58 Dose: 4 mg Oxycodone HCl (Roxycodone Tab*) 10 mg PO Q6H PRN PRN Reason: PAIN Last Admin: 11/18/18 14:49 Dose: 10 mg Polyethylene Glycol/Electrolytes (Miralax*) 17 gm PO BID [facility] Last Admin: 11/18/18 09:02 Dose: Not Given Pregabalin (Lyrica Cap(*)) 50 mg PO Q12H [facility] Last Admin: 11/18/18 08:59 Dose: 50 mg Simethicone (Mylicon Tab*) 80 mg PO Q6HR PRN PRN Reason: gas Last Admin: 11/12/18 20:58 Dose: 80 mg Sodium Chloride (Sodium Chloride 0.65% Nasal [place]*) 2 spray BOTH NARES DAILY PRN PRN Reason: CONGESTION Tiotropium [place]raine (Spiriva Cap.Inh*) 1 cap INH DAILY [facility] Last Admin: 11/18/18 09:38 Dose: 1 cap Torsemide (Torsemide) 40 mg PO DAILY [facility] Last Admin: 11/18/18 08:57 Dose: 40 mg Trazodone HCl (Desyrel Tab*) 25 mg PO BEDTIME [facility] Last Admin: 11/17/18 21:00 Dose: 25 mg Vitamin B Complex/Vitamin E (B Complex-50*) 1 tab PO DAILY [facility] Last Admin: 11/18/18 08:55 Dose: 1 tab Warfarin Sodium (Coumadin Tab(*)) 3 mg PO DAILY@1700 [facility]; Protocol Last Admin: 11/18/18 17:40 Dose: 3 mg Vital Signs - 8 hr 11/18/18 11/18/18 12:18 14:49 Respiratory 18 18 Rate Oxygen Devices in Use Now: Nasal Cannula, CPAP Appearance: awake, alert no distress. Eyes: No Scleral Icterus Ears/Nose/Mouth/Throat: NL Teeth, Lips, Gums, Mucous Membranes Moist Neck: NL Appearance and Movements; NL JVP, Trachea Midline Respiratory: Symmetrical Chest Expansion and Respiratory Effort, Clear to Auscultation Cardiovascular: NL Sounds; No Murmurs; No JVD Extremities: - - decrease erythema. 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 bony met, undergoing onc workup - Patient Problems (1) Femoral DVT (deep venous thrombosis) Current Visit: Yes Status: Acute Code(s): I82.419 - ACUTE EMBOLISM AND THROMBOSIS OF UNSPECIFIED FEMORAL VEIN SNOMED Code(s): 004750420 Comment: - INR 1.7 currently (after being held pending hem/onc recommendations. (Her INR was therapetuic at presentation) - Now on Lovenox, while bridging her back with warfarin - Heme consult in place appreciated and they think her DVT is probably due to subtherapeutic INR (between INR checks). Recommended to resume warfarin and recheck US of leg in 6 weeks to ensure proper response to her Warfarin (2) Sacral insufficiency fracture Current Visit: Yes Status: Acute Code(s): M84.48XA - PATHOLOGICAL FRACTURE, OTHER SITE, INIT ENCNTR FOR FRACTURE SNOMED Code(s): 528574789 Comment: - Orthopedics consulted - no intervention. - Pain control Oxy 10mg up to q 6 at baseline, standing Tylenol, pregabalin - PT/OT - MRI of pelvis showing R sided lesion? possible mets, not at site of pain or fracture, she denies R hip pain. CT C/A/P no evidence of mets. - Will need outpatient referral to Ortho onc (3) Chronic leg pain Current Visit: No Status: Chronic Priority: Medium Code(s): M79.606 - PAIN IN LEG, UNSPECIFIED; G89.29 - OTHER CHRONIC PAIN SNOMED Code(s): 74320532 Comment: - Pain control Oxy 10mg up to q 6 at baseline, standing Tylenol, pregabalin - PT/OT (4) A-fib Current Visit: No Status: Acute Code(s): I48.91 - UNSPECIFIED ATRIAL FIBRILLATION SNOMED Code(s): 22710153 Comment: - Continue metoprolol 37.5 mg daily for rate control - Lovenox/warfarin for AC (5) Anemia Current Visit: No Status: Acute Code(s): D64.9 - ANEMIA, UNSPECIFIED SNOMED Code(s): 081040322 Comment: - PANCYTOPENIA seen, now with leukopenia - Send SPEP, r/o spike given renal insuff and fracture. Result negative for M spike - CT C/A/P with only pulm effusion-unclear sig - FOBT pending, B12 low normal 253, Iron def wiht low sat and low Iron level. will start B complex, iron supplement (6) Anxiety Current Visit: No Status: Acute Code(s): F41.9 - ANXIETY DISORDER, UNSPECIFIED SNOMED Code(s): 49962120 Comment: - continue Trazodone and ativan prn (7) CKD (chronic kidney disease) Current Visit: No Status: Acute Code(s): N18.9 - CHRONIC KIDNEY DISEASE, UNSPECIFIED SNOMED Code(s): 869450954 Comment: -Stable (8) Constipation Current Visit: No Status: Acute Priority: Medium Code(s): K59.00 - CONSTIPATION, UNSPECIFIED SNOMED Code(s): 96791571 Comment: - MOM and miralax BID and Lubiprostone BID - Suppository PRN - Opiate induced, pain regimen is pts HOME regimen (9) Diastolic CHF Current Visit: No Status: Acute Code(s): I50.30 - UNSPECIFIED DIASTOLIC ( CONGESTIVE) HEART FAILURE SNOMED Code(s): 135266704 Comment: -No acute exacerbation, continue home torsemide 40 mg and aldactone 25 mg daily (10) Physical deconditioning Current Visit: No Status: Acute Code(s): R53.81 - OTHER MALAISE SNOMED Code(s): 46249822057657 Comment: - PT/OT (11) Hypothyroidism Current Visit: No Status: Chronic Code(s): E03.9 - HYPOTHYROIDISM, UNSPECIFIED SNOMED Code(s): 19892337 Comment: - Continue current levothyroxine dose (12) DVT prophylaxis Current Visit: No Status: Acute Onset Date: 10/14/14 Code(s): PLI3579 - SNOMED Code(s): 388603607 Comment: - On warfarin (13) Full code status Current Visit: No Status: Acute Onset Date: 10/14/14 Code(s): Z78.9 - OTHER SPECIFIED HEALTH STATUS SNOMED Code(s): 827866148 Status and Disposition: Inpatient, will likely need DEBBIE
[2018-11-18] MEDS: traZODone TAB* 50 MG TAB PO SCH (20:45)
[2018-11-19] MEDS: Acetaminophen TAB* 325 MG PO SCH ×2 (05:15→11:27)
[2018-11-19] MEDS: Levothyroxine TAB* 25 MCG TAB PO SCH (05:16)
[2018-11-19] MEDS: Lidocaine PATCH 5%* 1 PATCH TRANSDERM PRN (05:42)
[2018-11-19] MEDS: oxyCODONE TAB* 5 MG TAB PO PRN ×2 (05:43→12:49)
[2018-11-19 07:11] LABS: INR 1.97 (0.82-1.09)
[2018-11-19] MEDS ORDERED: Artificial Tears* 15 ML BTL BOTH EYES PRN (08:56)
[2018-11-19] MEDS: Metoprolol Succinate XL TAB* 25 MG PO SCH (09:17)
[2018-11-19] MEDS: Torsemide TAB 10 MG PO SCH (09:18)
[2018-11-19] MEDS: Pregabalin CAP(*) 50 MG PO SCH (09:18)
[2018-11-19] MEDS: Ferrous Sulfate TAB* 325 MG PO SCH (09:18)
[2018-11-19] MEDS: Enoxaparin(*) 60 MG/0.6 ML SYR SUBCUT SCH (09:18)
[2018-11-19] MEDS: Cholecalciferol TAB* 400 UNIT PO SCH (09:18)
[2018-11-19] MEDS: Vitamin B Complex TAB PO SCH (09:19)
[2018-11-19] MEDS: CMCS: Lubiprostone 24 MCG CAP (NF) PO SCH (09:19)
[2018-11-19] MEDS: Calcium Polycarbophil TAB* 625 MG PO SCH (09:19)
[2018-11-19] MEDS: Famotidine TAB* 20 MG PO SCH (09:19)
[2018-11-19] MEDS: Polyethylene Glycol 3350* 17 GM PACKET PO SCH (09:25)
[2018-11-19] MEDS: Magnesium Hydroxide LIQ* 30 ML UDC PO SCH (09:25)
[2018-11-19] MEDS: Tiotropium CAP.INH* CAP.INH/18 MCG (USE ORDER SET !) INH SCH (09:27)
[2018-11-19] MEDS: Mometasone/Formoter 200/5 MDI INH SCH (09:28)
[2018-11-19] MEDS ORDERED: Metoprolol Succinate XL TAB* 25 MG PO SCH (10:00)
[2018-11-19 12:17] VITALS: BP 105/53
--- NOTE | 2018-11-19 12:23 | DS ---
DISCHARGE SUMMARY/TRANSFER SUMMARY: DATE OF ADMISSION: 11/12/18 DATE OF DISCHARGE: 11/19/18 FINAL DISCHARGE DIAGNOSES: 1. Right femoral profunda deep vein thrombosis. 2. Bilateral peroneal vein thrombosis. 3. Bilateral sacral ala fracture. 4. Chronic left hip pain secondary to left severe osteoarthritis. 5. Right pelvic wing bony lesion, suspect to be benign. 6. Chronic atrial fibrillation. 7. Chronic anemia due to mild B12 deficiency and iron deficiency. 8. Anxiety. 9. Chronic kidney disease. 10. Chronic constipation secondary to chronic opiate therapy. 11. Chronic diastolic heart failure, stable. 12. Physical deconditioning. 13. Hypothyroidism. HOSPITAL COURSE: The patient presented to [facility] on 11/12/18 with significant hip aundrea n being going on for greater than a month. She has been having difficulty ambulating due to her left hip pain. The patient denies any recent fall. She is on chronic pain therapy for years and has ten dency to be imminent, to be very strict on getting her chronic opiate oxycodone and Lyrica and her pa in level has been nothing less than 8/10 on a good day. In the emergency room, the patient underwent initial workup, which included pelvic CT, showed profound osteopenia and bilateral sacral insufficie ncy fractures and severe osteoarthritis of the left hip. At the same time, she had ultrasound of the leg and it shows nonocclusive thrombus of the left profunda femoral vein and the bilateral peroneal vein as well, could not be ruled out. Therefore, the patient was admitted for pain control. She was placed on oxycodone and Lyrica along with Tylenol. Physical therapy and orthopedic consultation was obtained. During the workup, we proceeded by obtaining MRI of the pelvis, which did show the confir mation of the severe osteoarthritis of the left hip and incidental right iliac bone lesion concerning for metastasis. Oncology as well Heme/Onc were consulted for further input. From the ortho point o f view, they were recommending to consider referral to orthopedic oncologist on outpatient basis, how ever. I did discuss with the patient myself the benefit and risks and the chances of possible being metastasis is very unlikely. However, at this time the focus is to control her pain get her into phys ical therapy and when appropriate this referral can be made as an outpatient to Orthopedic Oncology a s if not available at our facility here in [place]. Also, Oncology did comment on the bone lesion giv en the characteristic on the MRI, it seems to be less likely to be malignant in nature, but nonethele ss this is not something to be ruled out without actual tissue biopsy and I will deferred that for fu rther discussion with the patient and her primary care team either as an outpatient or at rehab facil ity to make a referral for the outpatient oncology appointment for orthopedic. It also should be not ed that the patient's pain is actually on the left side of the corresponding arthritis pain and not o n the bony lesion on the right and regarding her DVT, the patient was supposed to be on Coumadin, how ever, was a concern that she had a therapeutic failure. I did review the Oncology note and they jacquelyn mmended that most likely it was because of having subtherapeutic INR and not actually to failure. ey recommended to resume the Coumadin along with the Lovenox to bridge it while on Lovenox for at [address] 3 days and then discontinue Lovenox and continue warfarin alone and to repeat her ultrasound of th e leg in 6 weeks after being on warfarin for reevaluation. Otherwise, the patient has been stable wit hout any acute concerns. She continued to have severe pain. She constantly asking for more pain med ication and it should be noted that the patient always seems to be resting comfortably, sleep and as soon she would arouse, awakened to be examined the first thing comes out that she is in extreme pain and asking for pain medication. She has a tendency from hospitalization to require more narcotic aundrea n medication and to be overmedicated. Therefore, I was cautious on simply comply where the patient's subjective complaint of the pain, as she tends to have high threshold for pain medication. PHYSICAL EXAM ON DISCHARGE: The patient upon entering the room, she was sitting in her chair, having breakfast, comfortable. When I did inform her that she will be leaving for rehab, she started devaughn browning, concerned about her pain medication and asking if they are going to take her pain medication away . I was able to reassure her that they will continue her pain medication as instructed on my paperwo rk. Shortly after that, nurses staff came in asking if I could give her more pain medication on her d ischarge through her discharge instructions, for which I declined and I insisted to keep her on her c urrent regimen, which seems to be tolerating well and sleeping comfortably on this regimen. Her head and neck normocephalic, atraumatic. Lungs: Clear to auscultation bilaterally. Cardiovascu lar: S1, S2, regular. Abdomen: Positive bowel sounds, soft, nontender. Extremities: Bilateral ped al edema, chronic venous stasis. There is slight tenderness at the bilateral tailbone with the limite d range of motion on the left hip. LABORATORY DATA: She had multiple CBCs throughout the hospital stays and she has a tendency to be ch ronically anemic with hematocrit between 26 and 27. Her INR today on the 11/19/18 is 1.97. Her chemistries were done and significant for baseline chroni c kidney disease at creatinine 1.2, BUN 41. Urinalysis, negative. Microbiology, blood culture, no g rowth. DIAGNOSTIC STUDIES: Ultrasound of the leg on 11/12/18 reveals left vein thrombosis, nonocclusive of the femoral vein profunda. Bilateral peroneal vein could not be visualized, therefore thrombosis cou ld not be excluded. Pelvic CT scan on 11/12/18 revealed osteopenia, although it shows left sacral ala fracture on the CT, osteoarthritis of the left hip. MRI of the pelvis on 11/13/18 reveals an incidental right iliac bone lesion concerning of metastasis, recommended biopsy. The patient, myself, and Oncology at this time seems to be more of a benign les ion, however, orthopedic recommended referral for outpatient Orthopedic Oncology in [place] as a th ey do not perform this possible malignant lesion at this facility as we do not have them. Please ref er to the full formal report from Orthopedic. The MRI actually did show bilateral sacral fracture versus the CT scan only picked up on the left and severe left hip osteoarthritis. CT abdomen, pelvis, as well as the chest shows bibasilar atelectasis, cardiomegaly, diffuse osteopeni a. There was no evidence of malignancy, which was done based on the MRI finding as we are trying to rule out any primary malignant tumor. CONSULTATION: Hematology/Oncology, consultation as well with Orthopedic. DISCHARGE MEDICATION: The patient will be discharged on the followin. Albuterol q.6 hours p.r.n. 2. Artificial tears bilaterally every 2 hours p.r.n. 3. Tylenol 650 q.6 hours p.r.n. 4. Symbicort 160/4.5 two puffs b.i.d. 5. Fibercon 625 p.o. b.i.d. 6. Vitamin D3 at 1600 units daily. 7. Lovenox 60 mg subcu 24 hours daily until the INR is therapeutic, I will bridge it for 3 days and discontinue Lovenox. 8. Iron 325 daily. 9. Levothyroxine 12.5 daily. 10. Lidocaine patch p.r.n. for her pain. 11. Lorazepam 0.5 mg at bedtime p.r.n. 12. Amitiza 24 mcg p.o. b.i.d. 13. Milk of mag p.r.n. 14. Metoprolol, I decreased to 25 mg daily down from 37.5 for the soft blood pressure, her pulse lakshmi ng in the 60s. 15. Nitroglycerin p.r.n. 16. Oxycodone 10 mg every 6 hours p.r.n. for pain. She tends to take it q.4 hours at home. I decre ased it to q.6 due to occasional somnolence. 17. MiraLax 17 g daily. 18. Lyrica 50 mg q.12 hours. She was taking 4 times a day at home. At this time, I will defer to h er provider at [facility] to increase it or not, but she tends to be very somnolent throughout the day. 19. Zantac 150 q.a.m. 20. Simethicone 80 mg q.6 hours p.r.n. 21. Normal saline nasal spray daily. 22. Spiriva 18 mcg daily. 23. Torsemide 40 mg daily that is increased from every other day due to her profound edema. 24. Trazodone 25 mg at bedtime. 25. Vitamin B complex daily. 26. Coumadin 3 mg daily. DISCHARGE INSTRUCTION AND RECOMMENDATION: For her femoral vein DVT, recommendation is to continue he r Coumadin for at least 6 weeks, repeat ultrasound in about 6 weeks to ensure improvement or partial resolution for DVT and proper response to the Coumadin and to continue the Lovenox until the INR is t herapeutic for at least 3 days. For her sacral insufficiency fractures, it is nonsurgical, pain control, physical therapy, and regard ing the right-sided iliac lesion, recommended to have outpatient referral with Orthopedic Oncology at [place]. Please refer to the full report from our orthopedic consultation. For her chronic pain, the patient has tendency to have consent need and requirement for more pain med ication. Her pain never is below 8/10 and it should be noted that she is extremely somnolent at time s when I entered the room for examination, she was found asleep, but as soon as she was awakened, she quickly complained of her pain 8/10. I will defer that to the provider at the facility to assess he r pain and not simply reply to her subjective pain level. For her AFib, I decreased her metoprolol down from 37 to 25 mg due to occasional hypotension, especia lly with her chronic opiate. For her anemia, I appreciate the input of Oncology and Hematology, recommended continue the B12 and i [place] as already initiated, possible referral as outpatient if her anemia persists. Whether or not she would require further workup that could be done as outpatient, but she is chronically anticoagulated , which tends to be probably intermittent fecal occult bleed, however, fecal occult blood was though ordered for over a week and firstly has not been performed. Otherwise, continue her physical therapy. Take all the medications as prescribed. DISCHARGE CONDITION: Stable. DISCHARGE DISPOSITION: [facility]. [id number]/[facility] #: [id number]
== END 2018-11-19 13:50 | DRG 543 ==
LOC: ED 14:00 → MED 18:56
PROVIDERS: ADMIT Internal Medicine; ATTEND Internal Medicine
DX: M80.08XA Age-related osteoporosis with current pathological fracture, vertebra(e), initial encounter for fracture (principal); I82.412 Acute embolism and thrombosis of left femoral vein; I13.0 Hypertensive heart and chronic kidney disease with heart failure and stage 1 through stage 4 chronic kidney disease, or unspecified chronic kidney disease; I50.32 Chronic diastolic (congestive) heart failure; J96.11 Chronic respiratory failure with hypoxia; D61.818 Other pancytopenia; I82.493 Acute embolism and thrombosis of other specified deep vein of lower extremity, bilateral; M16.12 Unilateral primary osteoarthritis, left hip; K21.9 Gastro-esophageal reflux disease without esophagitis; I25.10 Atherosclerotic heart disease of native coronary artery without angina pectoris; E78.00 Pure hypercholesterolemia, unspecified; J44.9 Chronic obstructive pulmonary disease, unspecified; M17.0 Bilateral primary osteoarthritis of knee; M46.90 Unspecified inflammatory spondylopathy, site unspecified; G62.9 Polyneuropathy, unspecified; F41.9 Anxiety disorder, unspecified; N18.9 Chronic kidney disease, unspecified; G89.29 Other chronic pain; E78.5 Hyperlipidemia, unspecified; E03.9 Hypothyroidism, unspecified; E53.8 Deficiency of other specified B group vitamins; I48.2 Chronic atrial fibrillation; K59.09 Other constipation; M85.88 Other specified disorders of bone density and structure, other site; F32.9 Major depressive disorder, single episode, unspecified; Z88.1 Allergy status to other antibiotic agents; Z88.5 Allergy status to narcotic agent; Z88.0 Allergy status to penicillin; Z88.8 Allergy status to other drugs, medicaments and biological substances; Z90.710 Acquired absence of both cervix and uterus; Z90.49 Acquired absence of other specified parts of digestive tract; Z99.81 Dependence on supplemental oxygen; Z90.89 Acquired absence of other organs; Z98.42 Cataract extraction status, left eye; Z98.41 Cataract extraction status, right eye; Z82.49 Family history of ischemic heart disease and other diseases of the circulatory system; Z72.89 Other problems related to lifestyle; Z87.891 Personal history of nicotine dependence; Z79.01 Long term (current) use of anticoagulants
CPT/HCPCS: 36415; 71260; 72192; 72197; 74177; 80048; 80053; 81003; 82607; 82728; 83540; 83550; 83605; 83735; 84100; 84155; 84165; 84550; 85025; 85610; 85652; 85730; 86140; 87040; 93970; 94640; 99223; 99232; 99283; A9270-GY; A9579; G8978-GP-CL; G8979-GP-CI; G8987-GO-CK; G8988-GO-CI; J1650; J2270; J2405; Q9967

== ENCOUNTER 2019-01-12 19:44 | Emergency (ER) | payer MEDICARE, BC ==
--- NOTE | 2019-01-12 20:07 | ED ---
Lower Extremity - HPI Summary HPI Summary: An 88 y/o female presents to [facility] with a chief complaint of worsened bilateral leg swelling. She says that her visiting nurse noticed that after she was discharged from the hospital for a fractured pelvis, her legs have been more swollen, she has blisters on her legs, her HR was elevated and her O2 sat was lowered. She notes that she has had SOB the last few days. At triage she rated her pain as a 7/10 in severity. The Pt is on O2 currently and has been using O2 more often at home. She has a Hx of bloodclots and CHF. She takes Torsemide BID and Spironolactone. She lives by herself in a house and uses a walker to walk around. 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 Negative: Fever Aggravating Factor(s): Nothing Alleviating Factor(s): Nothing Able to Bear Weight: Yes - uses walker at home - Allergies/Home Medications Allergies/Adverse Reactions: Allergies Allergy/AdvReac Type Severity Reaction Status Date / Time fentanyl Allergy Unknown Difficulty Verified 01/12/19 19:56 Breathing sulfamethoxazole AdvReac Intermediate Nausea Verified 01/12/19 19:56 [From Bactrim] trimethoprim [From Bactrim] AdvReac Intermediate Nausea Verified 01/12/19 19:56 ciprofloxacin AdvReac Hives Verified 01/12/19 19:56 codeine AdvReac Hives Verified 01/12/19 19:56 Penicillins AdvReac Hives Verified 01/12/19 19:56 Home Medications: Home Medications Cyclobenzaprine TAB* [Flexeril 10 MG TAB*] 5 mg PO BID PRN 01/12/19 [History Confirmed 01/12/19] Magnesium [Magnesium Elemental] 30 mg PO DAILY 01/12/19 [History Confirmed 01/12] oxyCODONE TAB* [Roxycodone TAB 5 mg*] 15 mg PO Q6H PRN 01/12/19 [History Confirmed 01/12/19] PMH/Surg Hx/FS Hx/Imm Hx Endocrine/Hematology History: Reports: Hx Anticoagulant Therapy - coumadin for a fib, Hx Blood Disorders - chronic thrombocytopenia, Hx Thyroid Disease - juwan, Hx Anemia Denies: Hx Diabetes Cardiovascular History: Reports: Hx Angina, Hx Congestive Heart Failure, Hx Coronary Artery Disease, Hx Deep 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 PT WITH TB 1994 Denies: Hx Lung Cancer, Hx Pulmonary Embolism GI History: Reports: Hx Gall Bladder Disease - cholecystectomy 1976, Hx Gastroesophageal Reflux Disease - CONTROL WITH MED, Hx Ulcer, Other GI Disorders - partial gastrectomy 1972 Denies: Hx Gastrointestinal Bleed, Hx Urosepsis History: Reports: Hx Chronic Renal Failure, Other Problems/Disorders - hysterectomy Denies: Hx Acute Renal Failure, Hx Benign Prostatic Hyperplasia, Hx Kidney Stones, Hx Renal Disease Musculoskeletal History: Reports: Hx Arthritis - BACK, KNEES, Hx Back Problems - lumbar laminectomy 1995, Hx Orthopedic Injury - hx r arm, r ankle, toes, Other Musculoskeletal History - back surgery 1995 Sensory History: Reports: Hx Cataracts - removed, Hx Contacts or Glasses - reading glasses Denies: Hx Eye Injury, Hx Eye Prosthesis, Hx Glaucoma, Hx Macular Degeneration, Hx Deafness, Hx Hearing Aid, Hx Hearing Problem, Other Sensory Impairments Opthamlomology History: Reports: Hx Cataracts - removed, Hx Contacts or Glasses - reading glasses Denies: Hx Eye Injury, Hx Eye Prosthesis, Hx Glaucoma, Hx Macular Degeneration, Other Sensory Impairments Neurological History: Reports: Other Neuro Impairments/Disorders - PERIPHERAL NEUROPATHY BILAT Denies: Hx Dementia, Hx Developmental Delay, Hx Migraine, Hx Seizures, Hx Transient Ischemic Attacks (TIA) Psychiatric History: Reports: Hx Anxiety - CONTROL WITH MED, Hx Depression - CONTROL WITH MED Denies: Hx Panic Disorder, Hx Schizophrenia, Hx Bipolar Disorder, Hx Suicide Attempt, Hx of Violent Episodes Against Others - Cancer History Cancer Type, Location and Year: breast lumpectomy was benign Hx Chemotherapy: No Hx Radiation Therapy: No - Surgical History Surgery Procedure, Year, and Place: T&A A CHILD. groin abscess A CHILD. appendectomy, cholecystectomy, [facility] [place]. hysterectomy partial, [facility]. thyroidectomy partial, [facility] [place]. L breast and R lung biopsies, [facility]. 1995 laminectomy L4,5, [facility]. gastrectomy partial 1972 r/t hemmorhaging ulcer;. Carpal Tunnel Surgery Right Wrist by Dr. Chauhan in July 2015. BILAT CATARACTS, [facility] [place]. right lymph node bx 1994, [facility]. left leg surgery- vein 2003 [facility] [place] ([place] ST[place]). Left Breast lumpectomy 1982, [facility] [place] Hx Anesthesia Reactions: No - Immunization History Date of Tetanus Vaccine: 2013 Date of Influenza Vaccine: Fall 2012 Infectious Disease History: No Infectious Disease History: Reports: Hx Tuberculosis, History Other Infectious Disease - hx e-coli sepsis and pneumonia February 2017 Denies: Hx Clostridium Difficile, Hx Hepatitis, Hx Human Immunodeficiency Virus (HIV), Hx of Known/Suspected MRSA, Hx Known/Suspected VRE, Hx Known/ Suspected VRSA, Traveled Outside the [place] in Last 30 Days - Family History Known Family History: Positive: Cardiac Disease - father - CHF, brother - aneurysm Negative: Hypertension, Diabetes - Social History Alcohol Use: None Alcohol Amount: 2 drinks per week Hx Substance Use: Yes Substance Use Type: Reports: None Substance Use Comment - Amount & Last Used: oxycodone and oxymorphone Hx Tobacco Use: Yes Smoking Status (MU): Former Smoker Type: Cigarettes Amount Used/How Often: 2 packs per week Length of Time of Smoking/Using Tobacco: ON AND OFF 45 YRS Have You Smoked in the Last Year: No Review of Systems Negative: Fever Positive: Other - positive: higher HR than baseline Positive: Shortness Of Breath, Other - positive: lower O2 sat than baseline Positive: Edema All Other Systems Reviewed And Are Negative: Yes Physical Exam - Summary Physical Exam Summary: Appearance: elderly, chronically ill-appearing, no acute distress Skin: Warm, dry, no obvious rash Eyes: sclera anicteric, no conjunctival pallor ENT: mucous membranes moist, pharynx appears normal Neck: Supple, nontender Respiratory: bibasilar crackles present Cardiovascular: Normal S1, S2. No murmurs. Normal distal pulses in tibial and radial bilaterally. Abdomen: Soft, nontender, normal active bowel sounds present Musculoskeletal: bilateral marked edema of legs, bilateral erythema of legs, left leg has a few blisters Neurological: A&Ox3, awake and alert, mentation is normal, speech is fluent and appropriate Psychiatric: affect is normal, does not appear anxious or depressed Triage Information Reviewed: Yes Vital Signs On Initial Exam: Initial Vitals Temp Pulse Resp BP Pulse Ox 98.4 F 76 18 121/61 93 01/12/19 19:50 01/12/19 19:50 01/12/19 19:50 01/12/19 19:50 01/12/19 19:50 Vital Signs Reviewed: Yes Diagnostics - Vital Signs Vital Signs Temp Pulse Resp BP Pulse Ox 01/12/19 19:50 98.4 F 81 18 121/61 99 - Laboratory Result Diagrams: 01/12/19 20:30 01/12/19 20:30 Lab Statement: Any lab studies that have been ordered have been reviewed, and results considered in the medical decision making process. - Radiology CXR Radiology Interpretation Completed By: ED Physician Summary of Radiographic Findings: No acute process. Pending official imaging report. - EKG 20:17 Cardiac Rate: Other Rate - Atrial fibrillation at 70 bpm EKG Rhythm: Atrial Fibrillation Summary of EKG Findings: EKG at 20:17 showed Atrial fibrillation at 70 bpm. P waves, QRS complex, and T waves are within normal limits, T waves and intervals are normal, no ischemic changes. No significant change from 09/09/18. Lower Extremity Course/Dx - Course Course Of Treatment: An 88 y/o female presents to [facility] with a chief complaint of worsened bilateral leg swelling. She says that her visiting nurse noticed that after she was discharged from the hospital for a fractured pelvis, her legs have been more swollen, she has blisters on her legs, her HR was elevated and her O2 sat was lowered. She notes that she has had SOB the last few days. The physical exam revealed that the patient is elderly, chronically ill- appearing, in no acute distress, has bibasilar crackles present,. bilateral marked edema of legs, bilateral erythema of legs, and the left leg has a few blisters. EKG at 20:17 showed Atrial fibrillation at 70 bpm. P waves, QRS complex, and T waves are within normal limits, T waves and intervals are normal , no ischemic changes. No significant change from 09/09/18. CXR showed no acute process. Blood work and chemistries obtained. The patient's oxygen saturation is good even on room air. She does not show any signs of pulmonary edema either clinically or on imaging or lab test. Her creatinine is slightly above her recent labs, but fairly close to where her baseline generally is, approximately 1.5. At this point I believe it is reasonable to increase her diuretic a bit to see if we can get some of the fluid off. I have increased this from 40 mg daily to 60. If her symptoms do not improve or worsen, I advised her to come back here as she may need to be admitted for IV diuresis. The patient is agreeable with this plan. - Diagnoses Provider Diagnoses: Peripheral edema Discharge - Sign-Out/Discharge Documenting (check all that apply): Patient Departure - DC Patient Received Moderate/Deep Sedation with Procedure: No - Discharge Plan Condition: Good Disposition: HOME Prescriptions: Torsemide 60 mg PO DAILY #30 tablet Patient Education Materials: Heart Failure (ED), Leg Edema (ED) Referrals: Jose Thompson MD [Primary Care Provider] - Additional Instructions: Your chest x ray and blood work did not show any sign of fluid backing up into the lungs, but clearly your peripheral swelling in the legs is worsening, so I would like to increase your torsemide dose to 60 mg daily. This can be spread out over the day if you like. We gave you an extra dose this evening, so you do not need any more tonight. If your symptoms worsen over the holiday weekend, come back, as sometimes it is necessary to get the fluid off using IV medication. - Billing Disposition and Condition Condition: GOOD Disposition: Home - Attestation Statements Document Initiated by Vinceibjonathan: Yes Documenting Scribe: Josue Lopez Provider For Whom Susan is Documenting (Include Credential): Richard Rico MD Scribe Attestation: Josue Xie, scribed for Richard Rico MD on 01/13/19 at 0152. Scribe Documentation Reviewed: Yes Provider Attestation: The documentation as recorded by the Josue lynne accurately reflects the service I personally performed and the decisions made by me, Richard Rico MD Status of Scribe Document: Viewed
[2019-01-12 20:38] LABS: ABS Eosinophils 0.1 10^3/ul (0-0.6); ABS Lymphocytes 1.5 10^3/ul (1.0-4.8); ABS Monocytes 0.4 10^3/ul (0-0.8); ABS Neutrophils 1.8 10^3/ul (1.5-7.7); Eosinophil % 2.2 %; Hematocrit 29 % (35-47); Hemoglobin 9.2 g/dL (12.0-16.0); Lymphocyte % 39.3 %; Mean Corpuscular HGB Conc 32 g/dL (31-36); Mean Corpuscular Hemoglobin 28 pg (27-31); Mean Corpuscular Volume 87 fL (80-97); Mean Platelet Volume 8.3 fL (7.4-10.4); Platelet Count 157 10^3/uL (150-450); Red Blood Count 3.28 10^6 /uL (3.70-4.87); Red Cell Distribution Width 21 % (10-15); White Blood Count 3.8 10^3/uL (3.5-10.8)
[2019-01-12 21:10] LABS: Albumin 3.3 g/dL (3.2-5.2); Albumin/Globulin Ratio 1.1 (1-3); BUN/Creatinine Ratio 34.3 (8-20); Calcium 8.4 mg/dL (8.6-10.3); EGFR African American 33.2 (>60); EGFR Non-African American 27.4 (>60); Globulin 3.1 g/dL (2-4); Potassium 4.5 mmol/L (3.5-5.0); Total Bilirubin 0.4 mg/dL (0.2-1.0); Total Protein 6.4 g/dL (6.4-8.9)
[2019-01-12] MEDS ORDERED: Torsemide TAB* 20 MG PO ONE (21:31)
[2019-01-13 00:11] VITALS: BP 110/60
--- NOTE | 2019-01-13 12:45 | PN ---
Progress Note - Progress Note Date of Service: 01/12/19 Note: Final CXR read per radiology: IMPRESSION: COPD. LEFT BASILAR LINEAR ATELECTASIS. CARDIOMEGALY. R2 No change in treatment needed at this time.
== END 2019-01-13 00:09 | disposition home or self-care (01) ==
LOC: ED 19:44
DX: R60.0 Localized edema (principal); Z88.0 Allergy status to penicillin; Z79.01 Long term (current) use of anticoagulants; I25.10 Atherosclerotic heart disease of native coronary artery without angina pectoris; I10 Essential (primary) hypertension; J44.9 Chronic obstructive pulmonary disease, unspecified; Z87.891 Personal history of nicotine dependence; R06.02 Shortness of breath
CPT/HCPCS: 36415; 71046; 80053; 83880; 84484; 85025; 93005; 99283; A9270-GY

== ENCOUNTER 2019-03-21 17:06 | Inpatient (IN) | payer MEDICARE, BC ==
--- NOTE | 2019-03-21 18:20 | ED ---
Lower Extremity - HPI Summary HPI Summary: This pt is an 88 y/o female presenting to [facility] via EMS for left hip/femur pain. Pt reports she has had this pain for a "while now" but became significant worse today. She denies any recent trauma. Pt states she has difficulty ambulating secondary to pain. 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 Denies fever, chills, nausea, vomiting. Pt has hx of pelvic or hip fracture but she is unsure of which or which side. She has a lidocaine patch on her left femur. 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 Mechanism Of Injury: Other - No known trauma Onset of Pain: Immediate Onset/Duration: Worse Since - today Severity Currently: Severe Pain Intensity: 8 Pain Scale Used: 0-10 Numeric Timing: Lasting Weeks Location: Is Discrete @ - left hip/femur Associated Signs And Symptoms: Positive: Negative Aggravating Factor(s): Ambulation, Movement Alleviating Factor(s): Rest - Allergies/Home Medications Allergies/Adverse Reactions: Allergies Allergy/AdvReac Type Severity Reaction Status Date / Time fentanyl Allergy Unknown Difficulty Verified 03/21/19 17:22 Breathing sulfamethoxazole AdvReac Intermediate Nausea Verified 03/21/19 17:22 [From Bactrim] trimethoprim [From Bactrim] AdvReac Intermediate Nausea Verified 03/21/19 17:22 ciprofloxacin AdvReac Hives Verified 03/21/19 17:22 codeine AdvReac Hives Verified 03/21/19 17:22 Penicillins AdvReac Hives Verified 03/21/19 17:22 Home Medications: Home Medications Calcium Carbonate/Vitamin D3 [Calcium 600 + Vit D Tablet] 1 tab PO QAM 03/21/19 [History Confirmed 03/21/19] LORazepam TAB(*) [Ativan 0.5 MG TAB (*)] 0.5 mg PO BEDTIME PRN MDD 1 03/21/19 [ History Confirmed 03/21/19] Magnesium Oxide TAB* [MagOx 400 TAB*] 400 mg PO QAM 03/21/19 [History Confirmed 03/21/19] Metoprolol Succinate XL TAB* [Toprol XL TAB*] 25 mg PO QAM 03/21/19 [History Confirmed 03/21/19] Oxycodone TAB(NF) [Oxycodone HCl 10 MG] 15 mg PO Q6H PRN 03/21/19 [History Confirmed 03/21/19] Pregabalin CAP(*) [Lyrica CAP(*)] 50 mg PO BID 03/21/19 [History Confirmed 03/21] Spironolactone TAB* [Aldactone TAB*] 25 mg PO DAILY 03/21/19 [History Confirmed 03/21/19] Torsemide TAB* [Demadex*] 40 mg PO QAM 03/21/19 [History Confirmed 03/21/19] traZODone TAB* [Desyrel TAB*] 25 mg PO BEDTIME PRN 03/21/19 [History Confirmed 03/21/19] PMH/Surg Hx/FS Hx/Imm Hx Endocrine/Hematology History: Reports: Hx Anticoagulant Therapy - coumadin for a fib, Hx Blood Disorders - chronic thrombocytopenia, Hx Thyroid Disease - juwan, Hx Anemia Denies: Hx Diabetes Cardiovascular History: Reports: Hx Angina, Hx Congestive Heart Failure, Hx Coronary Artery Disease, Hx Deep 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 PT WITH TB 1994 Denies: Hx Lung Cancer, Hx Pulmonary Embolism GI History: Reports: Hx Gall Bladder Disease - cholecystectomy 1976, Hx Gastroesophageal Reflux Disease - CONTROL WITH MED, Hx Ulcer, Other GI Disorders - partial gastrectomy 1972 Denies: Hx Gastrointestinal Bleed, Hx Urosepsis History: Reports: Hx Chronic Renal Failure, Other Problems/Disorders - hysterectomy Denies: Hx Acute Renal Failure, Hx Benign Prostatic Hyperplasia, Hx Kidney Stones, Hx Renal Disease Musculoskeletal History: Reports: Hx Arthritis - BACK, KNEES, Hx Back Problems - lumbar laminectomy 1995, Hx Orthopedic Injury - hx r arm, r ankle, toes, Other Musculoskeletal History - back surgery 1995 Sensory History: Reports: Hx Cataracts - removed, Hx Contacts or Glasses - reading glasses Denies: Hx Eye Injury, Hx Eye Prosthesis, Hx Glaucoma, Hx Macular Degeneration, Hx Deafness, Hx Hearing Aid, Hx Hearing Problem, Other Sensory Impairments Opthamlomology History: Reports: Hx Cataracts - removed, Hx Contacts or Glasses - reading glasses Denies: Hx Eye Injury, Hx Eye Prosthesis, Hx Glaucoma, Hx Macular Degeneration, Other Sensory Impairments Neurological History: Reports: Other Neuro Impairments/Disorders - PERIPHERAL NEUROPATHY BILAT Denies: Hx Dementia, Hx Developmental Delay, Hx Migraine, Hx Seizures, Hx Transient Ischemic Attacks (TIA) Psychiatric History: Reports: Hx Anxiety - CONTROL WITH MED, Hx Depression - CONTROL WITH MED Denies: Hx Panic Disorder, Hx Schizophrenia, Hx Bipolar Disorder, Hx Suicide Attempt, Hx of Violent Episodes Against Others - Cancer History Cancer Type, Location and Year: breast lumpectomy was benign Hx Chemotherapy: No Hx Radiation Therapy: No - Surgical History Surgery Procedure, Year, and Place: T&A A CHILD. groin abscess A CHILD. appendectomy, cholecystectomy, [facility]. hysterectomy partial, [facility]. thyroidectomy partial, [facility]. L breast and R lung biopsies, [facility]. 1995 laminectomy L4,5, [facility]. gastrectomy partial 1972 r/t hemmorhaging ulcer;. Carpal Tunnel Surgery Right Wrist by Dr. Chauhan in July 2015. [place] [facility] [place] 1994, [facility]. [place] [facility] [place] [facility] [place]x Anesthesia Reactions: No - Immunization History Date of Tetanus Vaccine: 2013 Date of Influenza Vaccine: Fall 2012 Infectious Disease History: No Infectious Disease History: Reports: Hx Tuberculosis, History Other Infectious Disease - hx e-coli sepsis and pneumonia February 2017 Denies: Hx Clostridium Difficile, Hx Hepatitis, Hx Human Immunodeficiency Virus (HIV), Hx of Known/Suspected MRSA, Hx Known/Suspected VRE, Hx Known/ Suspected VRSA, Traveled Outside the [place] in Last 30 Days - Family History Known Family History: Positive: Cardiac Disease - father - CHF, brother - aneurysm Negative: Hypertension, Diabetes - Social History Alcohol Use: None Alcohol Amount: 2 drinks per week Hx Substance Use: Yes Substance Use Type: Reports: None Substance Use Comment - Amount & Last Used: oxycodone and oxymorphone Hx Tobacco Use: Yes Smoking Status (MU): Former Smoker Type: Cigarettes Amount Used/How Often: 2 packs per week Length of Time of Smoking/Using Tobacco: ON AND OFF 45 YRS Have You Smoked in the Last Year: No Review of Systems Negative: Fever, Chills Cardiovascular: Negative Respiratory: Negative Negative: Vomiting, Nausea Musculoskeletal: Other - POSITIVE: left hip pain All Other Systems Reviewed And Are Negative: Yes Physical Exam - Summary Physical Exam Summary: GENERAL: Patient is a well-developed and nourished female who is lying comfortable in the stretcher. Patient is not in any acute respiratory distress. HEAD AND FACE: Normocephalic EYES: PERRLA, EOMI x 2. EARS: Hearing grossly intact. MOUTH: Oropharynx within normal limits. NECK: Supple, trachea is midline, no adenopathy, no JVD, no carotid bruit. CHEST: Symmetric, no tenderness at palpation LUNGS: Clear to auscultation bilaterally. No wheezing or crackles. CVS: Regular rate and rhythm, S1 and S2 present, no murmurs or gallops appreciated. ABDOMEN: Soft, non-tender. Bowel sounds are normal. No abnormal abdominal pulsations. EXTREMITIES: Tenderness to palpation to left hip and pelvic region. NEURO: Alert and oriented x 3. No acute neurological deficits. Speech is normal and follows commands. SKIN: Dry and warm Triage Information Reviewed: Yes Vital Signs On Initial Exam: Initial Vitals Temp Pulse Resp BP Pulse Ox 97.6 F 83 16 128/62 95 03/21/19 17:14 03/21/19 17:14 03/21/19 17:14 03/21/19 17:14 03/21/19 17:14 Vital Signs Reviewed: Yes Diagnostics - Vital Signs Vital Signs Temp Pulse Resp BP Pulse Ox 03/21/19 17:14 97.6 F 83 16 128/62 95 - Laboratory Result Diagrams: 03/21/19 18:58 03/21/19 18:58 Lab Statement: Any lab studies that have been ordered have been reviewed, and results considered in the medical decision making process. - CT Pelvis CT CT Interpretation Completed By: Radiologist Summary of CT Findings: IMPRESSION: 1. No acute fracture identified, but assessment of the bones is limited by diffuse demineralization. 2. Severe degenerative change at left hip. 3. Moderate left hip joing effusion, increased since prior. 4. Moderate sized left inguinal hernia containing fluid and possibly a segment of distal small bowel, not seen previously. No visible evidence of bowel obstruction. 3. 5. Mild nonspecific stranding in lower abdominal mesentery. 6. Post hysterectomy and cholecystectomy. Moderate burden of stool in visualized colon with large amount in rectum. Dr. Payan has reviewed this report. Left lower extremity CT CT Interpretation Completed By: Radiologist Summary of CT Findings: IMPRESSION: 1. No acute bony abnormality or fracture identified, but the bones are diffusely demineralized which limits evaluation of fine bony detail. 2. Severe degenerative change at left hip. 3. Moderate left hip effusion, increased since prior. 4. Lower extremity subcutaneous edema. 5. Left inguinal hernia containing fluid, possibly a segment of distal small bowel. 6. See separate pelvic CT report. Dr. Payan has reviewed this report. Lower Extremity Course/Dx - Course Assessment/Plan: Pt is an 88 y/o female presenting to [facility] via [place] for left hip /femur pain she has had for a "while now" but became significant worse today. She denies any recent trauma. Left lower extremity CT reveals 1. No acute bony abnormality or fracture identified, but the bones are diffusely demineralized which limits evaluation of fine bony detail. 2. Severe degenerative change at left hip. 3. Moderate left hip effusion, increased since prior. 4. Lower extremity subcutaneous edema. 5. Left inguinal hernia containing fluid, possibly a segment of distal small bowel. 6. See separate pelvic CT report. Pelvis CT shows 1. No acute fracture identified, but assessment of the bones is limited by diffuse demineralization. 2. Severe degenerative change at left hip. 3. Moderate left hip joing effusion, increased since prior. 4. Moderate sized left inguinal hernia containing fluid and possibly a segment of distal small bowel, not seen previously. No visible evidence of bowel obstruction. 3. 5. Mild nonspecific stranding in lower abdominal mesentery. 6. Post hysterectomy and cholecystectomy. Moderate burden of stool in visualized colon with large amount in rectum. In the ED course the pt was given IV fluids, morphine. Case discussed with hospitalist, Dr. Huizar. I discussed results with patient. The patient agrees with this plan. - Diagnoses Provider Diagnoses: Left hip pain - Physician Notifications Discussed Care Of Patient With: Jena Huizar - hospitalist Time Discussed With Above Provider: 21:16 Instructed by Provider To: Admit As Inpatient Discharge ED - Sign-Out/Discharge Documenting (check all that apply): Patient Departure - [place] [facility] [place] Patient Received Moderate/Deep Sedation with Procedure: No - Discharge Plan Condition: Stable Disposition: ADMITTED TO [facility] Referrals: Jose Thompson MD [Primary Care Provider] - - Billing Disposition and Condition Condition: STABLE Disposition: Admitted to [facility] - Attestation Statements Document Initiated by Scribe: Yes Documenting Scribe: Patricia Orourke Provider For Whom Scribe is Documenting (Include Credential): Yovani Payan MD Scribe Attestation: Patricia Xie, scribed for Yovani Payan MD on 03/21/19 at 2121. Scribe Documentation Reviewed: Yes Provider Attestation: The documentation as recorded by the Patricia lynne accurately reflects the service I personally performed and the decisions made by Yovani valentin MD Status of Scribe Document: Viewed
[2019-03-21] MEDS ORDERED: NS 0.9% 1000 ML** 1,000 ML IV ONE (18:44)
[2019-03-21] MEDS ORDERED: Morphine 4 MG/ML VIAL (1 ml) 4 MG/ML VIAL IV ONE (18:45)
[2019-03-21 19:18] LABS: ABS Eosinophils 0.1 10^3/ul (0-0.6); ABS Lymphocytes 1.7 10^3/ul (1.0-4.8); ABS Monocytes 0.3 10^3/ul (0-0.8); ABS Neutrophils 2.1 10^3/ul (1.5-7.7); Eosinophil % 2.3 %; Hematocrit 34 % (35-47); Hemoglobin 10.8 g/dL (12.0-16.0); Lymphocyte % 39.4 %; Mean Corpuscular HGB Conc 32 g/dL (31-36); Mean Corpuscular Hemoglobin 31 pg (27-31); Mean Corpuscular Volume 95 fL (80-97); Mean Platelet Volume 8.6 fL (7.4-10.4); Nucleated Red Blood Cells % 0.1; Platelet Count 131 10^3/uL (150-450); Red Blood Count 3.53 10^6 /uL (3.70-4.87); Red Cell Distribution Width 18 % (10-15); White Blood Count 4.3 10^3/uL (3.5-10.8)
[2019-03-21 19:22] LABS: Albumin 3.2 g/dL (3.2-5.2); Albumin/Globulin Ratio 1.1 (1-3); BUN/Creatinine Ratio 40.1 (8-20); Calcium 8.5 mg/dL (8.6-10.3); EGFR African American 42.2 (>60); EGFR Non-African American 34.9 (>60); Globulin 2.9 g/dL (2-4); Potassium 4.5 mmol/L (3.5-5.0); Total Bilirubin 0.4 mg/dL (0.2-1.0); Total Protein 6.1 g/dL (6.4-8.9)
[2019-03-21 21:53] LABS: Urine Appearance Clear; Urine Bilirubin Negative (Negative); Urine Blood Negative (Negative); Urine Color Straw; Urine Glucose Negative (Negative); Urine Ketones Negative (Negative); Urine Nitrite Negative (Negative); Urine Protein Negative (Negative); Urine Urobilinogen Negative (Negative)
[2019-03-21] MEDS ORDERED: Polyethylene Glycol 3350* 17 GM PACKET PO PRN (23:31)
[2019-03-21] MEDS ORDERED: LORazepam TAB(*) 0.5 MG PO PRN (23:31)
[2019-03-21] MEDS ORDERED: Dextran 70/Hypromellose Tears Eye Drops 15 ml BTL (for Artificials Tears) BOTH EYES PRN (23:31)
[2019-03-21] MEDS ORDERED: traZODone TAB* 50 MG TAB PO PRN (23:31)
[2019-03-21] MEDS ORDERED: Lidocaine PATCH 5%* 1 PATCH TRANSDERM PRN (23:31)
[2019-03-21 23:52] LABS: INR 2.26 (0.82-1.09)
[2019-03-21] MEDS ORDERED: Albuterol/Ipratropium NEB.SOL* Albuterol 2.5 MG/Ipratropium 0.5 MG 3 ML INH PRN (23:59)
[2019-03-22] MEDS: Morphine INJ* 2 MG/ML 1 ML SYRINGE (TWO MG - NEW SYRINGE VERSION) IV PRN ×3 (00:22→11:15)
--- NOTE | 2019-03-22 02:41 | HP ---
CC: Dr. Thompson; Benita Devi NP * HISTORY AND PHYSICAL: DATE OF ADMISSION: 03/21/19 TIME OF EVALUATION: 9:40 p.m. PRIMARY CARE PROVIDER: Dr. Thompson. CHIEF COMPLAINT: Left hip pain. HISTORY OF PRESENT ILLNESS: Mrs. Saldana is an 88-year-old female with a complex past medical history that includes COPD, on home O2; atrial fibrillation , on Coumadin; diastolic CHF; anxiety; CAD; hyperlipidemia; CKD stage 2 to 3; chronic pain; thrombocytopenia; hypertension, and hypothyroidism who presents to the emergency room with complaints of left hip pain. The patient was admitted to [facility] in November with complaints of left hip pain for a month. Her workup at that time showed a sacral ala fracture. She was admitted for pain control and physical therapy evaluation, and she was discharged. 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 She was seen in consultation by oncology and orthopedist and on discharge, the plan was for referral to orthopedic oncology as an outpatient to determine if further workup was recommended. On that admission, the patient was also found to have a DVT in the setting of warfarin use, but the impression was that she had subtherapeutic INRs and that was not considered to be a warfarin failure, so she was bridged with Lovenox and continued on the medication. As per discharge summary, the plan was for outpatient referral to [facility], but the patient cannot tell me exactly what happened after that. She was discharged to [facility] for rehab and then eventually went home. She states that the left hip pain never went away completely and actually has become more severe over the past week to the point that today, she was not able to ambulate. She states that when she is lying down, she has no pain, but with ambulation, the pain is a 10 out of 10. She follows at the Pain Clinic. She was seen on 03/09/19 by Benita Devi, nurse practitioner, and the impression at that time was that the patient had chronic lumbar radiculopathy with primary lower extremity pain, and the plan was to continue her usual pain medications. The patient denies fall, trauma, fever, chills, chest pain, palpitation, nausea , vomiting, diarrhea, or urinary complaints. PAST MEDICAL HISTORY: 1. COPD, on home O2. 2. Atrial fibrillation, on Coumadin. 3. Diastolic heart failure. 4. Anxiety. 5. Coronary artery disease. 6. Tricuspid regurgitation. 7. Hyperlipidemia. 8. CKD stage 2 to 3. 9. Chronic pain, following at the Pain Clinic. 10. Thrombocytopenia. 11. Hypertension. 12. Hypothyroidism. 13. Lower extremity DVT. 14. Sacral fracture, as described above. 15. Severe left hip osteoarthritis. PAST SURGICAL HISTORY: 1. Status post hysterectomy. 2. Status post appendectomy. 3. Status post tonsillectomy. 4. Status post cholecystectomy. 5. Status post partial thyroidectomy. 6. History of spinal surgery in the . MEDICATIONS: 1. Artificial Tears 1 drop to both eyes q.2 hours p.r.n. for dry eye. 2. Calcium plus vitamin D 1 tablet p.o. q.a.m. 3. Cyclobenzaprine 5 mg p.o. b.i.d. as needed for pain. 4. Ferrous sulfate 325 mg p.o. daily. 5. Levothyroxine 12.5 mcg p.o. daily. 6. Lidocaine patch 5% topical daily as needed for pain. 7. Lorazepam 0.5 mg p.o. at bedtime. 8. Amitiza 24 mcg p.o. b.i.d. 9. Magnesium oxide 400 mg p.o. daily. 10. Metoprolol succinate 25 mg p.o. daily. 11. Oxycodone 15 mg p.o. q.6 hours p.r.n. for moderate pain. 12. MiraLAX 17 g p.o. daily as needed for constipation. 13. Lyrica 50 mg p.o. b.i.d. 14. Ranitidine 150 mg p.o. at bedtime. 15. Risedronate 35 mg p.o. weekly. 16. Spironolactone 25 mg p.o. daily. 17. Spiriva 1 capsule inhaled daily. 18. Torsemide 40 mg p.o. daily. 19. Trazodone 25 mg p.o. at bedtime as needed for sleep. 20. Warfarin 3 mg p.o. daily. ALLERGIES: FENTANYL, SULFAMETHOXAZOLE, TRIMETHOPRIM, CIPROFLOXACIN, CODEINE, and PENICILLIN. FAMILY HISTORY: The patient's father of CHF. Sister of bleeding ulcer. Mother of coronary artery disease at age 57. The patient's brother also of an VA, unknown age. SOCIAL HISTORY: The patient quit smoking 24 years ago. She started smoking when she was a teenager, 2 packs a week. No history of alcohol use. No drug use. 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 Surrogate decision maker is her son, Jake Saldana, [phone], and her daughter, Glenny Saldana, . REVIEW OF SYSTEMS: A 14-point review of systems was performed, and all the pertinent negative and positive findings are as per in the HPI. PHYSICAL EXAMINATION GENERAL: The patient is a pleasant elderly lady, lying on the ED stretcher, in no acute distress. VITAL SIGNS: Temperature 97.6, heart rate is 69, respiratory rate is 20, oxygen saturation is 98% on room air, blood pressure is 115/76. HEENT: Pupils are equal. Moist mucous membranes. CHEST: Breath sounds present bilaterally with no added sounds. CVS: Normal S1, S2. Regular rate and rhythm. ABDOMEN: Soft, nontender, nondistended. Bowel sounds are present. EXTREMITIES: There is trace bilateral lower extremity edema. NEUROLOGIC: She is alert and oriented x3 and able to move all 4 extremities. The patient has pain on palpation of the left hip in the area of the left trochanteric bursa. She is able to flex and extend her hip from 0 to 90 with crepitations and mild pain. She states that her pain is worse when she puts weight on her left lower extremity. DIAGNOSTIC STUDIES/LAB DATA: The patient had a CBC that showed WBC of 4.3, hemoglobin of 10.8, hematocrit of 34, platelet count of 131 with 49% neutrophils. Chemistry showed a sodium of 138, potassium 4.5, chloride of 104, bicarb of 31, BUN of 57, creatinine of 1.4, glucose of 99, calcium of 8.5. LFTs are normal. Urinalysis was negative. The patient had a CT of the pelvis that showed no acute fracture identified, but assessment of the bone is limited by diffuse demineralization. Severe degenerative changes of the left hip. Moderate left hip joint effusion, increased since prior. Moderate-sized left inguinal hernia. ASSESSMENT AND PLAN: Mrs. Saldana is an 88-year-old female with a complex past medical history that includes chronic obstructive pulmonary disease, on home O2 ; atrial fibrillation, on Coumadin; diastolic heart failure; anxiety; coronary artery disease; tricuspid regurgitation; hyperlipidemia; chronic kidney disease , stage 2 to 3; chronic pain; neuropathy; thrombocytopenia; hypertension; hypothyroidism; lower extremity deep venous thrombosis who presented to the emergency room with complaints of left hip pain, unable to ambulate and unable to return home. 1. Left hip pain: This is multifactorial. The patient has known severe left hip osteoarthritis and had a similar presentation in November 2018. At that time, she was also found to have a sacral fracture. Also in the workup, there were pelvic lesions concerning for metastasis and it is unclear at this time if she had any further workup done as an outpatient. On physical examination, she does have pain on palpation of the trochanteric bursa, so I think trochanteric bursitis is one of the factors contributing to her pain. I do not think she has a septic joint as she has no signs or symptoms of an infection. She has a normal white cell count. The CT did show some increased hip effusion, though I think this is secondary to osteoarthritis. We will admit the patient as observation to the medical floor. We will continue pain management and we will request orthopedic evaluation as the patient may benefit from steroid injections. She will also be seen by physical therapy in consultation to see if she would benefit from a further stay in rehab. 2. Chronic obstructive pulmonary disease: It is stable. We will continue bronchodilators. 3. Atrial fibrillation: Rate is controlled. Continue metoprolol and warfarin. 4. Chronic pain: We will continue her usual oxycodone. 5. DVT prophylaxis: The patient has a score of 6 on the DVT Prophylaxis Assessment Guide and she is already anticoagulated with an INR of 2.2, so we will continue warfarin. 6. Code status: Full. TIME SPENT: Approximately 50 minutes were spent with the patient interview, medical records review, physical examination to complete the admission; more than half of this time was spent [id number] with the patient and in coordination of care. [id number]/[facility] #: [id number] PORTER
[2019-03-22] MEDS: Levothyroxine TAB* 25 MCG TAB PO SCH (06:12)
[2019-03-22] MEDS: SPIRIVA Respimat* (tiotropium) 2.5 mcg/inh Inhaler INH SCH (08:08)
[2019-03-22] MEDS: CMCS:Lubiprostone 24 MCG CAP (NF) PO SCH ×2 (09:02→21:17)
[2019-03-22] MEDS: oxyCODONE TAB* 5 MG TAB PO PRN ×2 (09:02→21:16)
[2019-03-22] MEDS: Magnesium Oxide TAB* 400 MG PO SCH (09:03)
[2019-03-22] MEDS: Torsemide TAB* 20 MG PO SCH (09:03)
[2019-03-22] MEDS: Spironolactone TAB* 25 MG PO SCH (09:03)
[2019-03-22] MEDS: Metoprolol Succinate XL TAB* 25 MG PO SCH (09:03)
[2019-03-22] MEDS: Pregabalin CAP(*) 50 MG PO SCH ×2 (09:03→21:17)
[2019-03-22] MEDS: Calcium/Vitamin D TAB 250/125* TAB PO SCH (09:04)
[2019-03-22] MEDS: Ferrous Sulfate TAB* 325 MG PO SCH (09:04)
--- NOTE | 2019-03-22 10:48 | PN ---
Subjective Date of Service: 03/22/19 Interval History: Patient seen and examined. Complaints of left hip pain that radiates down to the toes. No acute SOB, no chest pain, no fevers or chills. No acute overnight events. Objective Active Medications: Albuterol/Ipratropium (Duoneb (Albuterol 2.5 Mg/Ipratropium 0.5 Mg)) 1 neb INH Q4H PRN PRN Reason: SOB/WHEEZING Artificial Tears (Natural Balance Tears Eye Drop) 1 drop BOTH EYES Q2H PRN PRN Reason: DRY EYE Calcium/Vitamin D (Oscal D Tab 250/125*) 1 tab PO QAM [facility] Last Admin: 03/22/19 09:04 Dose: 1 tab Cyclobenzaprine HCl (Flexeril Tab*) 5 mg PO BID PRN PRN Reason: PAIN Famotidine (Pepcid Tab*) 20 mg PO BEDTIME [facility]; Protocol Ferrous Sulfate (Ferrous Sulfate Tab*) 325 mg PO DAILY [facility] Last Admin: 03/22/19 09:04 Dose: 325 mg Levothyroxine Sodium (Synthroid Tab*) 12.5 mcg PO QAM@0600 [facility] Last Admin: 03/22/19 06:12 Dose: 12.5 mcg Lidocaine (Lidoderm 5% Patch*) 1 patch TRANSDERM DAILY PRN PRN Reason: PAIN Lorazepam (Ativan Tab(*)) 0.5 mg PO BEDTIME PRN PRN Reason: ANXIETY Lubiprostone (Amitiza (Nf)) 24 mcg PO BID [facility] Last Admin: 03/22/19 09:02 Dose: 24 mcg Magnesium Oxide (Magox 400 Tab*) 400 mg PO QAM [facility] Last Admin: 03/22/19 09:03 Dose: 400 mg Metoprolol Succinate (Toprol Xl Tab*) 25 mg PO QAM [facility] Last Admin: 03/22/19 09:03 Dose: 25 mg Morphine Sulfate (Morphine Inj (Syringe))*) 1 mg IV Q1H PRN PRN Reason: SEVERE PAIN Last Admin: 03/22/19 04:23 Dose: 1 mg Oxycodone HCl (Roxycodone Tab*) 15 mg PO Q6H PRN PRN Reason: PAIN - MODERATE Last Admin: 03/22/19 09:02 Dose: 15 mg Polyethylene Glycol/Electrolytes (Miralax*) 17 gm PO DAILY PRN PRN Reason: CONSTIPATION Pregabalin (Lyrica Cap(*)) 50 mg PO BID [facility] Last Admin: 03/22/19 09:03 Dose: 50 mg Spironolactone (Aldactone Tab*) 25 mg PO DAILY [facility] Last Admin: 03/22/19 09:03 Dose: 25 mg Tiotropium [place] (Spiriva Respimat 2.5 Mcg) 2 puff INH DAILY [facility] Last Admin: 03/22/19 08:08 Dose: 2 puff Torsemide (Demadex*) 40 mg PO QAM [facility] Last Admin: 03/22/19 09:03 Dose: 40 mg Trazodone HCl (Desyrel Tab*) 25 mg PO BEDTIME PRN PRN Reason: SLEEP Warfarin Sodium (Coumadin Tab(*)) 3 mg PO DAILY@1700 [facility]; Protocol Vital Signs - 8 hr 03/22/19 03/22/19 03/22/19 02:53 03:15 04:23 Temperature 97.0 F Pulse Rate 62 Respiratory 18 16 18 Rate Blood Pressure 108/56 (mmHg) O2 Sat by Pulse 100 Oximetry 03/22/19 03/22/19 03/22/19 05:44 07:15 09:02 Temperature 97.2 F Pulse Rate 61 Respiratory 16 18 18 Rate Blood Pressure 141/64 (mmHg) O2 Sat by Pulse 99 Oximetry 03/22/19 09:03 Temperature Pulse Rate Respiratory 18 Rate Blood Pressure (mmHg) O2 Sat by Pulse Oximetry Oxygen Devices in Use Now: Nasal Cannula Appearance: alert, NAD Eyes: PERRLA Ears/Nose/Mouth/Throat: Mucous Membranes Moist Neck: NL Appearance and Movements; NL JVP, Trachea Midline Respiratory: Symmetrical Chest Expansion and Respiratory Effort, Clear to Auscultation Cardiovascular: NL Sounds; No Murmurs; No JVD, RRR Abdominal: NL Sounds; No Tenderness; No Distention Extremities: - - pain over left iliac crest and hip, no groin pain Skin: No Rash or Ulcers Neurological: Alert and Oriented x 3 Nutrition: Taking PO's Result Diagrams: 03/21/19 18:58 03/21/19 18:58 Diagnostic Imaging: Patient Name: JOHN PAUL LAURENT Medical Record#: [id number] Ordering Physician: Yovani Payan MD Acct.#: [id number] : 1930 Age: 88 Sex: F Location: EMERGENCY DEPARTMENT Exam Date: 03/21/191828 ADM Status: REG ER Order Information: CT PELVIS W/O Accession Number: [id number] CPT: 80150 EXAM: CT Pelvis Without Contrast, Skeletal EXAM DATE/TIME: 03/21/2019 7:25 PM CLINICAL HISTORY: 88 years old, female; Injury or trauma; Fall; Initial encounter; Additional info: Pain in left hip/femur area TECHNIQUE: Imaging protocol: Computed tomography images of the pelvis without contrast. Exam focused on the skeletal structures. Radiation optimization: All CT scans at this facility use at least one of these dose optimization techniques: automated exposure control; mA and/or kV adjustment per patient size (includes targeted exams where dose is matched to clinical indication); or iterative reconstruction. COMPARISON: C/A/P W CT CHEST/ABD/P 11/15/2018 2:09 PM FINDINGS: Limitations: Evaluation of vascular structures and solid organs is limited by lack of IV contrast. Stomach and bowel: A moderate amount of stool is present in the visualized colon with large amount in the rectum. Bladder: The urinary bladder is decompressed but contains no calcified stones. Reproductive: The uterus has been resected. Intraperitoneal space: Surgical clips are partially visualized in the right upper quadrant. Stranding noted in the lower abdominal mesentery. No free air or significant free fluid identified. Vasculature: There is calcified plaque of the abdominal aorta and bilateral iliac arteries. No aortic aneurysm. Bones/joints: There is severe degenerative narrowing of the left hip joint with cartilage loss and subchondral sclerosis and cyst formation. No acute fracture is visible. Of note, the bones are diffusely demineralized which limits evaluation of fine bony detail. There is a moderate left hip joint effusion, increased since prior study. Soft tissues: Moderate sized left inguinal hernia containing fluid, not seen previously. It is difficult to exclude this representing a loop of small bowel, but there is no evidence of bowel obstruction in the visualized portions. IMPRESSION: 1. No acute fracture identified, but assessment of the bones is limited by diffuse demineralization. 2. Severe degenerative change at left hip. 3. Moderate left hip joint effusion, increased since prior. 4. Moderate sized left inguinal hernia containing fluid and possibly a segment of distal small bowel, not seen previously. No visible evidence of bowel obstruction. 3. 5. Mild nonspecific stranding in lower abdominal mesentery. 6. Post hysterectomy and cholecystectomy. Assess/Plan/Problems-Billing Assessment: This is an 88 year old female with complex medical history that presents to the ER with complaints of chronic left hip pain and inability to ambulate. - Patient Problems (1) Chronic left hip pain Code(s): M25.552 - PAIN IN LEFT HIP; G89.29 - OTHER CHRONIC PAIN SNOMED Code(s ): 39729641 Comment: - Acute on chronic? - CT imaging as above, chronic arthritis, questionable findings in November of this year on MRI for metastatic lesion of right hip, may also be radiating pain from chronic sacral fractures - Patient states she did not have any ortho or onco follow up after discharge from rehab - Continue pain control with home oxy and morphine for breakthrough - Ortho consulted, PT pending (2) Chronic leg pain Code(s): M79.606 - PAIN IN LEG, UNSPECIFIED; G89.29 - OTHER CHRONIC PAIN SNOMED Code(s): 52418870 Comment: - Concurrent with hip and back pain - Continue oxycodone 15 mg q6h PRN, tylenol and pregabalin - PT/OT consults (3) A-fib Code(s): I48.91 - UNSPECIFIED ATRIAL FIBRILLATION SNOMED Code(s): 68497475 Comment: - Continue metoprolol 37.5 mg daily for rate control - Continue warfarin for AC (4) Anemia Code(s): D64.9 - ANEMIA, UNSPECIFIED SNOMED Code(s): 842294135 Comment: - Chronic pancytopenia, was worked up in November and seen by hematology then - Numbers stable on labs, continue to monitor - continue iron supplements and vitamins (5) CKD (chronic kidney disease) Code(s): N18.9 - CHRONIC KIDNEY DISEASE, UNSPECIFIED SNOMED Code(s): 337184342 Comment: - At baseline (6) Chronic obstructive pulmonary disease (COPD) Current Visit: No Status: Acute Code(s): J44.9 - CHRONIC OBSTRUCTIVE PULMONARY DISEASE, UNSPECIFIED SNOMED Code(s): 65540272 Comment: - Home inhalers (7) COPD (chronic obstructive pulmonary disease) Code(s): J44.9 - CHRONIC OBSTRUCTIVE PULMONARY DISEASE, UNSPECIFIED SNOMED Code(s): 81378472 Comment: - On continuous O2 at 2L - Continue home inhalers - Not in exacerbation (8) DVT prophylaxis Code(s): EIN8469 - SNOMED Code(s): 126828402 Comment: - On warfarin (9) Full code status Code(s): Z78.9 - OTHER SPECIFIED HEALTH STATUS SNOMED Code(s): 517813996 Status and Disposition: Observation. Dispo TBD.
--- NOTE | 2019-03-22 14:37 | CONSULT ---
Subjective Date of Service: 03/22/19 Interval History: Ms. Saldana is an 88 yo female with PMH significant for COPD on home O2, A fib, D CHF, anxiety, CAD, HLD, CKD, chronic pain, HTN, hypothyroidism, hx LE DVT, PAD , lymphadema, and osteoarthritis; who presented to the emergency room with complaints of left hip pain. She was admitted to the hospital for left hip pain. She has had chronic wounds on bilateral LEs, that have been present since at least December 2018. She follows with the wound clinic at [facility]. Patient seen and examined at bedside. Family History: Unchanged from Admission Social History: Unchanged from Admission Past Medical History: Unchanged from Admission Review of Systems - Measurements Intake and Output: Intake and Output Last 24 Hours 03/20/19 03/21/19 03/22/19 03/23/19 06:59 06:59 06:59 06:59 Intake Total 1000 680 Balance 1000 680 Weight 160 lb Intake: IV Fluids 1000 Oral 0 680 Other: Estimated Void Small Large # Bowel Movements 0 0 # Voids 1 3 - Review of Systems Constitutional Symptoms: Negative: Fever, Other - Chills Dermatology: Positive: Other - Bilateral LE wounds Objective Active Medications: Albuterol/Ipratropium (Duoneb (Albuterol 2.5 Mg/Ipratropium 0.5 Mg)) 1 neb INH Q4H PRN Reason: SOB/WHEEZING Artificial Tears (Natural Balance Tears Eye Drop) 1 drop BOTH EYES Q2H PRN Reason: DRY EYE Calcium/Vitamin D (Oscal D Tab 250/125*) 1 tab PO QAM [facility] Cyclobenzaprine HCl (Flexeril Tab*) 5 mg PO BID PRN Reason: PAIN Famotidine (Pepcid Tab*) 20 mg PO BEDTIME [facility]; Protocol Ferrous Sulfate (Ferrous Sulfate Tab*) 325 mg PO DAILY [facility] Levothyroxine Sodium (Synthroid Tab*) 12.5 mcg PO QAM@0600 [facility] Lidocaine (Lidoderm 5% Patch*) 1 patch TRANSDERM DAILY PRN Reason: PAIN Lorazepam (Ativan Tab(*)) 0.5 mg PO BEDTIME PRN Reason: ANXIETY Lubiprostone (Amitiza (Nf)) 24 mcg PO BID [facility] Magnesium Oxide (Magox 400 Tab*) 400 mg PO QAM [facility] Metoprolol Succinate (Toprol Xl Tab*) 25 mg PO QAM [facility] Morphine Sulfate (Morphine Inj (Syringe))*) 1 mg IV Q1H PRN Reason: SEVERE PAIN Oxycodone HCl (Roxycodone Tab*) 15 mg PO Q6H PRN Reason: PAIN - MODERATE Polyethylene Glycol/Electrolytes (Miralax*) 17 gm PO DAILY PRN Reason: CONSTIPATION Pregabalin (Lyrica Cap(*)) 50 mg PO BID [facility] Spironolactone (Aldactone Tab*) 25 mg PO DAILY [facility] Tiotropium [place] (Spiriva Respimat 2.5 Mcg) 2 puff INH DAILY [facility] Torsemide (Demadex*) 40 mg PO QAM [facility] Trazodone HCl (Desyrel Tab*) 25 mg PO BEDTIME PRN Reason: SLEEP Warfarin Sodium (Coumadin Tab(*)) 3 mg PO DAILY@1700 [facility]; Protocol Vital Signs 03/22/19 03/22/19 03/22/19 09:03 11:15 11:22 Temperature 98.1 F Pulse Rate 59 Respiratory 18 17 18 Rate Blood Pressure 98/40 (mmHg) O2 Sat by Pulse 98 Oximetry Oxygen Devices in Use Now: Nasal Cannula - 2L Appearance: NAD, laying in bed Ears/Nose/Mouth/Throat: Mucous Membranes Moist Respiratory: Symmetrical Chest Expansion and Respiratory Effort Cardiovascular: - - Bilateral LE lymphedema Extremities: - - 1+ bilateral DP Skin: - - See skin note below Neurological: Alert and Oriented x 3 Nutrition: Taking PO's Result Diagrams: 03/21/19 18:58 03/21/19 18:58 Diagnostic Imagin02/25/19 - VL ANK/BRACHIAL INDICES REPORT: The right ankle brachial index is 0.98 at the lower range of normal. Biphasic posterior tibial and triphasic dorsalis pedis waveforms. Arterial flow documented at the RIGHT great toe with toe brachial index equal to 0.88 moderately abnormal. Absence of reflected waves on ankle pulse volume recording. The left ankle brachial index could not be calculated due to noncompressible vessels. Biphasic posterior tibial and triphasic dorsalis pedis waveforms. Arterial flow documented at the LEFT great toe. 0.842 brachial index moderately abnormal. Absence of significant reflected waves on LEFT ankle pulse volume recording. IMPRESSION: #. Borderline low RIGHT ankle ankle brachial index. The LEFT ankle brachial index could not be calculated due to noncompressible vessels. Based on the spectral waveforms and pulse volume recordings as well as the moderately abnormal bilateral toe brachial indices there is evidence for arterial compromise to both lower extremities. Correlate with clinical assessment and consider CT angiogram runoff to assess for inflow disease and intrinsic lower extremity stenoses. Skin Deviation Note - Skin Deviation Findings Left lateral lower leg - There is a cluster of superficial open areas, measures 8.5 cm x 7 cm x 0.1 cm. The wound bases are red granulation tissue. The surrounding skin is intact, slight erythema. There is no drainage or odor. The surrounding skin is also dry and flaky. Right lateral lower leg - There are 2 superficial open areas, the upper and more lateral wound measures 1 cm x 1.5 c, x 0.1 cm and the lower and more anterior area measures 1 cm x 1.2 cm x 0.1 cm. The wound bases are red granulation tissue. The surrounding skin is intact, slight erythema. There is no drainage or odor. The surrounding skin is also dry and flaky. Wound Problem/Plan Assessment: Ms. Saldana is an 88 yo female with PMH significant for COPD on home O2, A fib, D CHF, anxiety, CAD, HLD, CKD, chronic pain, HTN, hypothyroidism, hx LE DVT, PAD , lymphadema, and osteoarthritis; who presented to the emergency room with complaints of left hip pain. She was admitted to the hospital for left hip pain. She presented to the hospital with chronic wounds on bilateral LEs. 1. Chronic bilateral LE wounds. Venous stasis ulcers with bilateral LE lymphedema. She has had ABIs recently, see above. She has been referred to Dr. Snyder by Dr. Payne for the abnormal ABIs. Recommend using Acticoat flex if available (if not available use calcium alginate while in the hospital), apply to the open areas, followed by rolled gauze and change every 3 days. Keep the legs elevated. Continue using Medigrip size E-58. She should continue to follow with the wound clinic at discharge. 2. Diet. Low sodium diet. 3. Code Status. Full Code Status. 4. Disposition. Inpatient, disposition per primary medicine team. Is Patient a Wound Clinic Patient: Yes Current Treatment: Acticoat flex, followed by rolled gauze and change every 3 days. Using Medigrip size E-58. Counseling and/or Coordination of Care Minutes: 30 Points of Discussion: TIME SPENT: A total of 30 minutes was spent on this wound consultation, 20 minutes was spent at the bedside removing the old dressing; discussing past medical history; assessing, measuring, and photographing the wounds; and reapplying the dressings. Attending: Ann Marie Michel
[2019-03-22] MEDS ORDERED: Gadoteridol* (CONTRAST) 279.3 MG/ML 10 ML IV ONE (16:05)
--- NOTE | 2019-03-22 16:54 | CONS ---
CONSULTATION REPORT: DATE OF CONSULT: 03/22/19 ATTENDING ORTHOPEDIC PROVIDER: Dr. Cuca Chauhan. PRIMARY CARE PROVIDER: Dr. Thompson. CHIEF COMPLAINT: Left hip pain. 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 This patient is known to me from November 2018 when she presented similarly complaining of left hip pain. At that time, a pelvis MRI revealed a right iliac bone lesion concerning for metastases as well as a right zone 1 and left zone 2 sacral insufficiency fracture and severe left hip osteoarthritis. She reports that she has been living at home, taking care of herself, bearing weight with a walker until roughly 3 days ago when her pain became so severe that she was unable to bear weight through her left lower extremity. Pain originates in the hip and radiates down her entire leg. This pain is consistent with that that she has been feeling over several months and is rated as sharp and severe. She has had no recent falls or trauma to the left hip. She did have a fall roughly 8 to 9 months ago. On her last admission, she was instructed to follow up with Orthopedic Oncology for right iliac lesion, which she has not yet done, though after discussion with the skilled nursing case manager, she does have an appointment to see [facility] on , and her daughter is aware and will be transporting her to this appointment. Additionally, on her last visit, she was seen by Oncology who note history of chronic anemia and thrombocytopenia as well as renal insufficiency with concern for multiple myeloma and need for further workup for this condition. The patient reports no numbness or tingling in the left lower extremity and she has no pain in the right lower extremity. PAST MEDICAL HISTORY: COPD, atrial fibrillation, diastolic heart failure, anxiety, coronary artery disease, tricuspid regurgitation, hyperlipidemia, CKD, chronic pain, thrombocytopenia, hypertension, chronic lower extremity edema, hypothyroidism. PAST SURGICAL HISTORY: Hysterectomy, appendectomy, tonsillectomy, cholecystectomy, partial thyroidectomy, spinal surgery in . ALLERGIES: FENTANYL, BACTRIM, CIPRO, PENICILLIN, CODEINE. FAMILY HISTORY: Father from CHF. Sister from bleeding ulcer. Mother from coronary artery disease. Brother from [place]. SOCIAL HISTORY: Former smoker 25 years ago. No alcohol use. No drug use. The patient lives alone. She uses a walker to ambulate. Up until her admission to the hospital, she has been ambulating with a walker, though in the past 3 days with severe difficulty with weightbearing to the left lower extremity. REVIEW OF SYSTEMS: General: Denies any fever, chills, recent illness. Cardiac : Denies any current chest pain. Does get intermittent chest pain which is followed by Dr. Montes. Respiratory: No shortness of breath or cough at this time. GI: No abdominal pain, nausea, vomiting, diarrhea. : No dysuria. Musculoskeletal: Positive for left hip pain. No other pain in upper extremities and no pain in the right lower extremity. Neuro: She has decreased sensation in bilateral lower extremities without any change with onset of worsening pain. Hematology: The patient does have a history of DVT. PHYSICAL EXAM: Vital Signs: Temperature 98.1, pulse rate 59, respiratory rate 17, oxygen saturation 98% on 2 L nasal cannula, blood pressure 98/40. General: No acute distress, lying comfortably in bed. HEENT: Normocephalic, atraumatic. Extraocular movements are intact. Cardiac: S1, S2. Respiratory: Clear to auscultation bilaterally. Abdomen: Soft, nontender, not distended. Musculoskeletal: Bilateral upper extremities: Skin envelop intact. Nontender to palpation. Moving extremities well without pain. Right lower extremity: Kerlix wrap on lower leg. She is nontender to palpation. She is able to flex and extend at digits, ankle, knee and hip without pain. Left lower extremity: She again has Kerlix wrap to the lower leg. Flexion and extension of digits, ankle, knee without pain. She is tender to palpation over the lateral hip. She has no tenderness about the groin. She has pain with log roll and she is unwilling to flex and extend the hip due to pain. She has obvious cracking noises with any motion of the hip. Neuro: Sensation is intact to light touch throughout bilateral and upper lower extremities. DP 2+ bilaterally. Skin: No erythema about the left hip. DIAGNOSTIC STUDIES/LAB DATA: Imaging: CT of the pelvis shows no acute fracture , but diffuse demineralization, severe degenerative osteoarthritis of the left hip, moderate left hip effusion. ASSESSMENT: The patient has left hip pain with known severe left hip osteoarthritis and effusion. There is concern for bone mets in this patient. PLAN: Repeat a contrast MRI of the pelvis and the left hip to evaluate for new fracture as she has had worsening pain and inability to bear weight. If the MRI is unchanged from previous, then we will intend for her to follow up with her orthopedic oncologist on 03/31/19 as previously scheduled in [place]. As for osteoarthritis of the left hip, she should follow up as an outpatient with Dr Acosta, Dr Mendez or Dr Suarez. We will follow MRI results and offer additional recommendations if there are any new acute fractures or concerns found on MRI. This case has been discussed with Dr. Chauhan who is in agreement with this assessment and plan. NEFTALI AQUINO [id number]/CPS #: [id number] MTDD
[2019-03-22] MEDS ORDERED: Warfarin TAB(*) 3 MG PO SCH (17:00)
[2019-03-22] MEDS: Cyclobenzaprine TAB* 10 MG PO PRN (21:18)
[2019-03-22] MEDS: Famotidine TAB* 20 MG PO SCH (21:18)
[2019-03-23] MEDS: oxyCODONE TAB* 5 MG TAB PO PRN ×3 (02:53→18:19)
[2019-03-23] MEDS: Levothyroxine TAB* 25 MCG TAB PO SCH (05:27)
[2019-03-23] MEDS: SPIRIVA Respimat* (tiotropium) 2.5 mcg/inh Inhaler INH SCH (08:16)
[2019-03-23] MEDS: Pregabalin CAP(*) 50 MG PO SCH ×2 (09:07→20:38)
[2019-03-23] MEDS: Spironolactone TAB* 25 MG PO SCH (09:07)
[2019-03-23] MEDS: Torsemide TAB* 20 MG PO SCH (09:07)
[2019-03-23] MEDS: Ferrous Sulfate TAB* 325 MG PO SCH (09:08)
[2019-03-23] MEDS: Calcium/Vitamin D TAB 250/125* TAB PO SCH (09:08)
[2019-03-23] MEDS: Magnesium Oxide TAB* 400 MG PO SCH (09:08)
[2019-03-23] MEDS: Metoprolol Succinate XL TAB* 25 MG PO SCH (09:09)
[2019-03-23] MEDS: CMCS:Lubiprostone 24 MCG CAP (NF) PO SCH ×2 (09:09→20:37)
--- NOTE | 2019-03-23 12:31 | PN ---
Subjective Date of Service: 03/23/19 Interval History: Awake, alert sitting in her chair. Still complains of increase left hip pain and difficulty with movement due to pain. She was able to sit up and transfer out of bed to chair. No distress. MRI of pelvis did reveal large joint effusion of the let hip and severe osteoarthritis, right stable lytic ileac bone lesion. She was also seen and assessed by PT who recommended ongoing skilled PT Past Medical History: Unchanged from Admission Objective Active Medications: Albuterol/Ipratropium (Duoneb (Albuterol 2.5 Mg/Ipratropium 0.5 Mg)) 1 neb INH Q4H PRN PRN Reason: SOB/WHEEZING Artificial Tears (Natural Balance Tears Eye Drop) 1 drop BOTH EYES Q2H PRN PRN Reason: DRY EYE Calcium/Vitamin D (Oscal D Tab 250/125*) 1 tab PO QAM [facility] Last Admin: 03/23/19 09:08 Dose: 1 tab Cyclobenzaprine HCl (Flexeril Tab*) 5 mg PO BID PRN PRN Reason: PAIN Last Admin: 03/22/19 21:18 Dose: 5 mg Famotidine (Pepcid Tab*) 20 mg PO BEDTIME [facility]; Protocol Last Admin: 03/22/19 21:18 Dose: 20 mg Ferrous Sulfate (Ferrous Sulfate Tab*) 325 mg PO DAILY [facility] Last Admin: 03/23/19 09:08 Dose: 325 mg Levothyroxine Sodium (Synthroid Tab*) 12.5 mcg PO QAM@0600 [facility] Last Admin: 03/23/19 05:27 Dose: 12.5 mcg Lidocaine (Lidoderm 5% Patch*) 1 patch TRANSDERM DAILY PRN PRN Reason: PAIN Lorazepam (Ativan Tab(*)) 0.5 mg PO BEDTIME PRN PRN Reason: ANXIETY Lubiprostone (Amitiza (Nf)) 24 mcg PO BID [facility] Last Admin: 03/23/19 09:09 Dose: 24 mcg Magnesium Oxide (Magox 400 Tab*) 400 mg PO QAM [facility] Last Admin: 03/23/19 09:08 Dose: 400 mg Metoprolol Succinate (Toprol Xl Tab*) 25 mg PO QAM [facility] Last Admin: 03/23/19 09:09 Dose: 25 mg Morphine Sulfate (Morphine Inj (Syringe))*) 1 mg IV Q1H PRN PRN Reason: SEVERE PAIN Last Admin: 03/22/19 11:15 Dose: 1 mg Oxycodone HCl (Roxycodone Tab*) 15 mg PO Q6H PRN PRN Reason: PAIN - MODERATE Last Admin: 03/23/19 09:06 Dose: 15 mg Polyethylene Glycol/Electrolytes (Miralax*) 17 gm PO DAILY PRN PRN Reason: CONSTIPATION Pregabalin (Lyrica Cap(*)) 50 mg PO BID [facility] Last Admin: 03/23/19 09:07 Dose: 50 mg Spironolactone (Aldactone Tab*) 25 mg PO DAILY [facility] Last Admin: 03/23/19 09:07 Dose: 25 mg Tiotropium [place] (Spiriva Respimat 2.5 Mcg) 2 puff INH DAILY [facility] Last Admin: 03/23/19 08:16 Dose: 2 puff Torsemide (Demadex*) 40 mg PO QAM [facility] Last Admin: 03/23/19 09:07 Dose: 40 mg Trazodone HCl (Desyrel Tab*) 25 mg PO BEDTIME PRN PRN Reason: SLEEP Warfarin Sodium (Coumadin Tab(*)) 3 mg PO DAILY@1700 [facility]; Protocol Last Admin: 03/22/19 18:04 Dose: 3 mg Vital Signs - 8 hr 03/23/19 03/23/19 03/23/19 05:31 07:15 08:00 Temperature 96.8 F Pulse Rate 69 Respiratory 16 16 18 Rate Blood Pressure 102/48 (mmHg) O2 Sat by Pulse 96 Oximetry 03/23/19 03/23/19 03/23/19 08:17 08:25 09:06 Temperature Pulse Rate 68 79 Respiratory 14 18 18 Rate Blood Pressure 122/60 (mmHg) O2 Sat by Pulse 96 93 Oximetry 03/23/19 03/23/19 03/23/19 09:07 11:10 11:37 Temperature 98.5 F Pulse Rate 80 Respiratory 18 16 18 Rate Blood Pressure 98/60 (mmHg) O2 Sat by Pulse 99 Oximetry 03/23/19 11:38 Temperature Pulse Rate Respiratory 18 Rate Blood Pressure (mmHg) O2 Sat by Pulse Oximetry Oxygen Devices in Use Now: Nasal Cannula Appearance: awake, alert no distress Eyes: No Scleral Icterus, - - EOMI Ears/Nose/Mouth/Throat: Mucous Membranes Moist Neck: NL Appearance and Movements; NL JVP, Trachea Midline Respiratory: Symmetrical Chest Expansion and Respiratory Effort, Clear to Auscultation Cardiovascular: NL Sounds; No Murmurs; No JVD, RRR Skin: - - bilateral lower extremeties wounds with cluster of open areas and granulations, erythema Neurological: Alert and Oriented x 3 Result Diagrams: 03/21/19 18:58 03/21/19 18:58 Diagnostic Imagin02/25/19 - VL ANK/BRACHIAL INDICES REPORT: The right ankle brachial index is 0.98 at the lower range of normal. Biphasic posterior tibial and triphasic dorsalis pedis waveforms. Arterial flow documented at the RIGHT great toe with toe brachial index equal to 0.88 moderately abnormal. Absence of reflected waves on ankle pulse volume recording. The left ankle brachial index could not be calculated due to noncompressible vessels. Biphasic posterior tibial and triphasic dorsalis pedis waveforms. Arterial flow documented at the LEFT great toe. 0.842 brachial index moderately abnormal. Absence of significant reflected waves on LEFT ankle pulse volume recording. IMPRESSION: #. Borderline low RIGHT ankle ankle brachial index. The LEFT ankle brachial index could not be calculated due to noncompressible vessels. Based on the spectral waveforms and pulse volume recordings as well as the moderately abnormal bilateral toe brachial indices there is evidence for arterial compromise to both lower extremities. Correlate with clinical assessment and consider CT angiogram runoff to assess for inflow disease and intrinsic lower extremity stenoses. Assess/Plan/Problems-Billing Assessment: This is an 88 year old female with complex medical history that presents to the ER with complaints of chronic left hip pain and inability to ambulate. - Patient Problems (1) Osteoarthritis of left hip Current Visit: Yes Status: Acute Code(s): M16.12 - UNILATERAL PRIMARY OSTEOARTHRITIS, LEFT HIP SNOMED Code(s): 639983233749625 Comment: - Severe osteoarthritis on her MRI along with large Joint effusions. - I called to review plan with orthopedic regarding her left hip arthritis and effusion which is her main complain and the reason of her presentation to the acute setting. - Continue lyrica, flexeril and will add tylenol prn (2) Bone lesion Current Visit: Yes Status: Acute Code(s): M89.9 - DISORDER OF BONE, UNSPECIFIED SNOMED Code(s): 48031097 Comment: - Right iliac bone found incidentaly in 11/2018 and now present for left hip pain due to osteoarthritis and again repeat MRI found to have stable lesion - Orthopedic did consult and recommended to have outpatient follow up with oncology orthopedic in [place] appointment made 03/31/19 (3) A-fib Current Visit: No Status: Acute Code(s): I48.91 - UNSPECIFIED ATRIAL FIBRILLATION SNOMED Code(s): 47409108 Comment: - Continue metoprolol-XL 25 mg daily for rate control - Continue warfarin for AC will add INR stat last tirado 03/21/19 (4) Chronic kidney disease Current Visit: No Status: Acute Code(s): N18.9 - CHRONIC KIDNEY DISEASE, UNSPECIFIED SNOMED Code(s): 501424961 Comment: - Stable ayt creatinine 1.42, - Check am labs (5) Chronic obstructive pulmonary disease (COPD) Current Visit: No Status: Acute Code(s): J44.9 - CHRONIC OBSTRUCTIVE PULMONARY DISEASE, UNSPECIFIED SNOMED Code(s): 71385112 Comment: - Home inhalers Albuterol and spiriva respimat (6) Diastolic CHF Current Visit: No Status: Acute Code(s): I50.30 - UNSPECIFIED DIASTOLIC ( CONGESTIVE) HEART FAILURE SNOMED Code(s): 754733608 Comment: - chronic stable in No acute exacerbation - Continue home torsemide 40 mg and aldactone 25 mg daily - Last echo 07/2018 EF 55% and evidence of diastollic dysfunctions (7) Femoral DVT (deep venous thrombosis) Current Visit: No Status: Acute Code(s): I82.419 - ACUTE EMBOLISM AND THROMBOSIS OF UNSPECIFIED FEMORAL VEIN SNOMED Code(s): 223071612 Comment: - On Warfarin INR 2.26 on 03/21/19 - Based on previous Heme consult from 11/2018 it was recommended to maintain warfarin treatment and recheck US of leg in 6 weeks (from November 2018) to ensure proper response to her Warfarin. reviewed available records I do not see a repeat US of leg. I will order to have done and follow up to ensure resolution of the DVT. (8) Hypothyroidism Current Visit: No Status: Chronic Code(s): E03.9 - HYPOTHYROIDISM, UNSPECIFIED SNOMED Code(s): 56866771 Comment: - Continue current levothyroxine 12.5 mg daily - No recent value since 07/2018 will check with am labs (9) DVT prophylaxis Current Visit: No Status: Acute Onset Date: 10/14/14 Code(s): VPR3245 - SNOMED Code(s): 006738708 Comment: - On warfarin Status and Disposition: Observation. Dispo TBD.
[2019-03-23] MEDS: Acetaminophen TAB* 325 MG PO PRN ×2 (13:41→20:42)
[2019-03-23 14:17] LABS: INR 1.48 (0.82-1.09)
--- NOTE | 2019-03-23 16:37 | PN ---
Progress Note - Progress Note Date of Service: 03/23/19 SOAP: Subjective: [] Pt seen at bedside. She continues to have significant left hip pain with movement, she has been able to transfer bed to chair bearing weight. Objective: []Gen: appears well, NAD LLE: left hip tender to palpation laterally, no erythema or warmth. Pain with any movement of the hip. Assessment: []left hip osteoarthritis with effusion Plan: []WBAT with assist Ultimately patient may require a left hip replacement to treat her severe osteoarthritis, appropriateness of this therapy with her age and medical comorbidities considered to be determined outpatient by our joint specialists. To relieve symptoms in the meanwhile she can have a left hip aspiration of effusion and as long as no gross purulence or concern for infection with appearance of aspirated fluid, proceed with depomedrol injection by radiology while in house. follow up outpt with one of our joint specialists thereafter. Discussed with Dr Suarez who agrees with this plan. Vital Signs Temp 96.9 F 03/23/19 15:15 Pulse 58 03/23/19 15:15 Resp 18 03/23/19 15:15 BP 99/44 03/23/19 15:15 Pulse Ox 100 03/23/19 15:15 Intake & Output 03/22/19 03/23/19 03/23/19 18:59 06:59 18:59 Intake Total 890 0 1440 Output Total 300 1600 Balance 890 -300 -160 Weight 160 lb 150 lb 6.4 oz Intake: Oral 890 0 1440 Output: Urine 300 1600 Other: Estimated Void Large Large Large Date of Last Bowel unknown Movement # Bowel Movements 0 0 0 # Voids 2 1 1 Laboratory Last Values WBC 4.3 10^3/uL (3.5-10.8) 03/21/19 18:58 RBC 3.53 10^6 /uL (3.70-4.87) L 03/21/19 18:58 Hgb 10.8 g/dL (12.0-16.0) L 03/21/19 18:58 Hct 34 % (35-47) L 03/21/19 18:58 MCV 95 fL (80-97) 03/21/19 18:58 MCH 31 pg (27-31) 03/21/19 18:58 MCHC 32 g/dL (31-36) 03/21/19 18:58 RDW 18 % (10-15) H 03/21/19 18:58 Plt Count 131 10^3/uL (150-450) L 03/21/19 18:58 MPV 8.6 fL (7.4-10.4) 03/21/19 18:58 Neut % (Auto) 49.3 % 03/21/19 18:58 Lymph % (Auto) 39.4 % 03/21/19 18:58 Kerr % (Auto) 8.0 % 03/21/19 18:58 Eos % (Auto) 2.3 % 03/21/19 18:58 Baso % (Auto) 1.0 % 03/21/19 18:58 Absolute Neuts (auto) 2.1 10^3/ul (1.5-7.7) 03/21/19 18:58 Absolute Lymphs (auto) 1.7 10^3/ul (1.0-4.8) 03/21/19 18:58 Absolute Monos (auto) 0.3 10^3/ul (0-0.8) 03/21/19 18:58 Absolute Eos (auto) 0.1 10^3/ul (0-0.6) 03/21/19 18:58 Absolute Basos (auto) 0.0 10^3/ul (0-0.2) 03/21/19 18:58 Absolute Nucleated RBC 0.0 10^3/ul 03/21/19 18:58 Nucleated RBC % 0.1 03/21/19 18:58 INR (Anticoag Therapy) 1.48 (0.82-1.09) H 03/23/19 13:28 Sodium 138 mmol/L (135-145) 03/21/19 18:58 Potassium 4.5 mmol/L (3.5-5.0) 03/21/19 18:58 Chloride 104 mmol/L (101-111) 03/21/19 18:58 Carbon Dioxide 31 mmol/L (22-32) 03/21/19 18:58 Anion Gap 3 mmol/L (2-11) 03/21/19 18:58 BUN 57 mg/dL (6-24) H 03/21/19 18:58 Creatinine 1.42 mg/dL (0.51-0.95) H 03/21/19 18:58 Est GFR ( Amer) 42.2 (>60) 03/21/19 18:58 Est GFR (Non-Af Amer) 34.9 (>60) 03/21/19 18:58 BUN/Creatinine Ratio 40.1 (8-20) H 03/21/19 18:58 Glucose 99 mg/dL (70-100) 03/21/19 18:58 Calcium 8.5 mg/dL (8.6-10.3) L 03/21/19 18:58 Total Bilirubin 0.40 mg/dL (0.2-1.0) 03/21/19 18:58 AST 14 U/L (13-39) 03/21/19 18:58 ALT 11 U/L (7-52) 03/21/19 18:58 Alkaline Phosphatase 99 U/L (34-104) 03/21/19 18:58 Total Protein 6.1 g/dL (6.4-8.9) L 03/21/19 18:58 Albumin 3.2 g/dL (3.2-5.2) 03/21/19 18:58 Globulin 2.9 g/dL (2-4) 03/21/19 18:58 Albumin/Globulin Ratio 1.1 (1-3) 03/21/19 18:58 Urine Color Straw 03/21/19 21:33 Urine Appearance Clear 03/21/19 21:33 Urine pH 7.0 (5-9) 03/21/19 21:33 Ur Specific [place] 1.010 (1.010-1.030) 03/21/19 21:33 Urine Protein Negative (Negative) 03/21/19 21:33 Urine Ketones Negative (Negative) 03/21/19 21:33 Urine Blood Negative (Negative) 03/21/19 21:33 Urine Nitrate Negative (Negative) 03/21/19 21:33 Urine Bilirubin Negative (Negative) 03/21/19 21:33 Urine Urobilinogen Negative (Negative) 03/21/19 21:33 Ur Leukocyte Esterase Negative (Negative) 03/21/19 21:33 Urine Glucose Negative (Negative) 03/21/19 21:33
[2019-03-23] MEDS: Cyclobenzaprine TAB* 10 MG PO PRN (20:37)
[2019-03-23] MEDS: Famotidine TAB* 20 MG PO SCH (20:38)
[2019-03-24] MEDS: oxyCODONE TAB* 5 MG TAB PO PRN ×3 (02:37→20:24)
[2019-03-24] MEDS: Levothyroxine TAB* 25 MCG TAB PO SCH (05:44)
[2019-03-24 06:15] LABS: ABS Eosinophils 0.2 10^3/ul (0-0.6); ABS Lymphocytes 1.9 10^3/ul (1.0-4.8); ABS Monocytes 0.4 10^3/ul (0-0.8); ABS Neutrophils 1.9 10^3/ul (1.5-7.7); Eosinophil % 4.7 %; Hematocrit 36 % (35-47); Hemoglobin 11.3 g/dL (12.0-16.0); Lymphocyte % 42.4 %; Mean Corpuscular HGB Conc 32 g/dL (31-36); Mean Corpuscular Hemoglobin 30 pg (27-31); Mean Corpuscular Volume 94 fL (80-97); Mean Platelet Volume 8.5 fL (7.4-10.4); Platelet Count 129 10^3/uL (150-450); Red Blood Count 3.77 10^6 /uL (3.70-4.87); Red Cell Distribution Width 17 % (10-15); White Blood Count 4.5 10^3/uL (3.5-10.8)
[2019-03-24 06:46] LABS: BUN/Creatinine Ratio 34.2 (8-20); C Reactive Protein 4.7 mg/L (<8.01); Calcium 8.5 mg/dL (8.6-10.3); EGFR African American 52.8 (>60); EGFR Non-African American 43.7 (>60); Magnesium 1.8 mg/dL (1.9-2.7); Phosphorus 2.5 mg/dL (2.5-5.0)
[2019-03-24] MEDS ORDERED: methylPREDNISolone ACETATE 80* 80 MG/ML 1 ML VIAL IM ONE (07:00)
[2019-03-24] MEDS ORDERED: Lidocaine 1% MPF ** 5 ML VIAL INJ ONE (07:00)
[2019-03-24 07:09] LABS: TSH (Thyroid Stimulating Horm) 2.44 mcIU/mL (0.34-5.60)
[2019-03-24 07:26] LABS: Erythrocyte Sed Rate 36 mm/Hr (0-29)
[2019-03-24] MEDS: SPIRIVA Respimat* (tiotropium) 2.5 mcg/inh Inhaler INH SCH (08:34)
[2019-03-24] MEDS: Metoprolol Succinate XL TAB* 25 MG PO SCH (08:38)
[2019-03-24] MEDS: Pregabalin CAP(*) 50 MG PO SCH ×2 (08:38→20:23)
[2019-03-24] MEDS: Ferrous Sulfate TAB* 325 MG PO SCH (08:38)
[2019-03-24] MEDS: Torsemide TAB* 20 MG PO SCH (08:38)
[2019-03-24] MEDS: Calcium/Vitamin D TAB 250/125* TAB PO SCH (08:38)
[2019-03-24] MEDS: CMCS:Lubiprostone 24 MCG CAP (NF) PO SCH ×2 (08:39→20:28)
[2019-03-24] MEDS: Magnesium Oxide TAB* 400 MG PO SCH (08:39)
[2019-03-24] MEDS: Spironolactone TAB* 25 MG PO SCH (08:39)
--- NOTE | 2019-03-24 10:39 | PN ---
Subjective Date of Service: 03/24/19 Interval History: Patient seen this morning, she is complaining of increase pain left hip, having difficulty moving or lifting her hip due to pain. I did discuss with orthopedic yesterday and reviewed her images (MRI) and discussed her left hip joint effusion. They did recommend to aspirate and schedule with IR of joint steroid injections. I was able to discuss with Dr Snyder yesterday and she is scheduled for aspirate and injection today. no fever, no chills, WBC remain normal Past Medical History: Unchanged from Admission Objective Active Medications: Acetaminophen (Tylenol Tab*) 650 mg PO Q4H PRN PRN Reason: PAIN Last Admin: 03/23/19 20:42 Dose: 650 mg Albuterol/Ipratropium (Duoneb (Albuterol 2.5 Mg/Ipratropium 0.5 Mg)) 1 neb INH Q4H PRN PRN Reason: SOB/WHEEZING Artificial Tears (Natural Balance Tears Eye Drop) 1 drop BOTH EYES Q2H PRN PRN Reason: DRY EYE Calcium/Vitamin D (Oscal D Tab 250/125*) 1 tab PO QAM [facility] Last Admin: 03/24/19 08:38 Dose: 1 tab Cyclobenzaprine HCl (Flexeril Tab*) 5 mg PO BID PRN PRN Reason: PAIN Last Admin: 03/23/19 20:37 Dose: 5 mg Famotidine (Pepcid Tab*) 20 mg PO BEDTIME [facility]; Protocol Last Admin: 03/23/19 20:38 Dose: 20 mg Ferrous Sulfate (Ferrous Sulfate Tab*) 325 mg PO DAILY [facility] Last Admin: 03/24/19 08:38 Dose: 325 mg Levothyroxine Sodium (Synthroid Tab*) 12.5 mcg PO QAM@0600 [facility] Last Admin: 03/24/19 05:44 Dose: 12.5 mcg Lidocaine (Lidoderm 5% Patch*) 1 patch TRANSDERM DAILY PRN PRN Reason: PAIN Lorazepam (Ativan Tab(*)) 0.5 mg PO BEDTIME PRN PRN Reason: ANXIETY Lubiprostone (Amitiza (Nf)) 24 mcg PO BID [facility] Last Admin: 03/24/19 08:39 Dose: 24 mcg Magnesium Oxide (Magox 400 Tab*) 400 mg PO QAM [facility] Last Admin: 03/24/19 08:39 Dose: 400 mg Metoprolol Succinate (Toprol Xl Tab*) 25 mg PO QAM [facility] Last Admin: 03/24/19 08:38 Dose: 25 mg Morphine Sulfate (Morphine Inj (Syringe))*) 1 mg IV Q1H PRN PRN Reason: SEVERE PAIN Last Admin: 03/22/19 11:15 Dose: 1 mg Oxycodone HCl (Roxycodone Tab*) 15 mg PO Q6H PRN PRN Reason: PAIN - MODERATE Last Admin: 03/24/19 02:37 Dose: 15 mg Polyethylene Glycol/Electrolytes (Miralax*) 17 gm PO DAILY PRN PRN Reason: CONSTIPATION Pregabalin (Lyrica Cap(*)) 50 mg PO BID [facility] Last Admin: 03/24/19 08:38 Dose: 50 mg Spironolactone (Aldactone Tab*) 25 mg PO DAILY [facility] Last Admin: 03/24/19 08:39 Dose: 25 mg Tiotropium [place] (Spiriva Respimat 2.5 Mcg) 2 puff INH DAILY [facility] Last Admin: 03/24/19 08:34 Dose: 2 puff Torsemide (Demadex*) 40 mg PO QAM [facility] Last Admin: 03/24/19 08:38 Dose: 40 mg Trazodone HCl (Desyrel Tab*) 25 mg PO BEDTIME PRN PRN Reason: SLEEP Vital Signs - 8 hr 03/24/19 03/24/19 03/24/19 02:37 03:15 05:22 Temperature 97.2 F Pulse Rate 96 Respiratory 16 14 12 Rate Blood Pressure 121/53 (mmHg) O2 Sat by Pulse 94 Oximetry 03/24/19 03/24/19 03/24/19 07:15 08:00 08:36 Temperature 97.6 F Pulse Rate 78 71 Respiratory 16 18 16 Rate Blood Pressure 128/66 (mmHg) O2 Sat by Pulse 98 95 Oximetry 03/24/19 08:38 Temperature Pulse Rate Respiratory 18 Rate Blood Pressure (mmHg) O2 Sat by Pulse Oximetry Oxygen Devices in Use Now: Nasal Cannula Appearance: awake, alert. no distress Eyes: No Scleral Icterus, - - EOMI Ears/Nose/Mouth/Throat: NL Teeth, Lips, Gums Neck: NL Appearance and Movements; NL JVP, Trachea Midline Respiratory: Symmetrical Chest Expansion and Respiratory Effort, Clear to Auscultation Cardiovascular: NL Sounds; No Murmurs; No JVD, - - + 2 edema Abdominal: NL Sounds; No Tenderness; No Distention Extremities: - - bilateral lower extremeties wounds with cluster of open areas and granulations, erythema Skin: - - bilateral lower extremeties wounds with cluster of open areas and granulations, erythema Neurological: Alert and Oriented x 3, - - bilateral let weakness due to osteoarthritis left hip and right knee Result Diagrams: 03/24/19 05:49 03/24/19 05:49 Diagnostic Imagin02/25/19 - VL ANK/BRACHIAL INDICES REPORT: The right ankle brachial index is 0.98 at the lower range of normal. Biphasic posterior tibial and triphasic dorsalis pedis waveforms. Arterial flow documented at the RIGHT great toe with toe brachial index equal to 0.88 moderately abnormal. Absence of reflected waves on ankle pulse volume recording. The left ankle brachial index could not be calculated due to noncompressible vessels. Biphasic posterior tibial and triphasic dorsalis pedis waveforms. Arterial flow documented at the LEFT great toe. 0.842 brachial index moderately abnormal. Absence of significant reflected waves on LEFT ankle pulse volume recording. IMPRESSION: #. Borderline low RIGHT ankle ankle brachial index. The LEFT ankle brachial index could not be calculated due to noncompressible vessels. Based on the spectral waveforms and pulse volume recordings as well as the moderately abnormal bilateral toe brachial indices there is evidence for arterial compromise to both lower extremities. Correlate with clinical assessment and consider CT angiogram runoff to assess for inflow disease and intrinsic lower extremity stenoses. Assess/Plan/Problems-Billing Assessment: This is an 88 year old female with complex medical history that presents to the ER with complaints of chronic left hip pain and inability to ambulate. - Patient Problems (1) Osteoarthritis of left hip Current Visit: Yes Status: Acute Code(s): M16.12 - UNILATERAL PRIMARY OSTEOARTHRITIS, LEFT HIP SNOMED Code(s): 397749594034283 Comment: - Severe osteoarthritis of the left hip on her MRI along with large Joint effusions. - I discussed with orthopedic regarding her left hip arthritis and effusion and recommended aspirate of the fluid and intrasynovial steroid injections. 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 in 11/2018 and now present for left hip pain due to osteoarthritis and again repeat MRI found to have stable lesion - Orthopedic did consult and recommended to have outpatient follow up with oncology orthopedic in [place] appointment made 03/31/19 (3) A-fib Current Visit: No Status: Acute Code(s): I48.91 - UNSPECIFIED ATRIAL FIBRILLATION SNOMED Code(s): 03884988 Comment: - Continue metoprolol-XL 25 mg daily for rate control - Continue warfarin for AC , will resume post hip injections and will bridge with lovenox until warfarin is therapeutic (4) Chronic kidney disease Current Visit: No Status: Acute Code(s): N18.9 - CHRONIC KIDNEY DISEASE, UNSPECIFIED SNOMED Code(s): 321593178 Comment: - Stable ayt creatinine 1.42, - Check am labs (5) Chronic obstructive pulmonary disease (COPD) Current Visit: No Status: Acute Code(s): J44.9 - CHRONIC OBSTRUCTIVE PULMONARY DISEASE, UNSPECIFIED SNOMED Code(s): 03997594 Comment: - Home inhalers Albuterol and spiriva respimat (6) Diastolic CHF Current Visit: No Status: Acute Code(s): I50.30 - UNSPECIFIED DIASTOLIC ( CONGESTIVE) HEART FAILURE SNOMED Code(s): 753068812 Comment: - chronic stable in No acute exacerbation - Continue home torsemide 40 mg and aldactone 25 mg daily - Last echo 07/2018 EF 55% and evidence of diastollic dysfunctions (7) Femoral DVT (deep venous thrombosis) Current Visit: No Status: Acute Code(s): I82.419 - ACUTE EMBOLISM AND THROMBOSIS OF UNSPECIFIED FEMORAL VEIN SNOMED Code(s): 539362312 Comment: - On Warfarin INR 2.26 on 03/21/19 - Based on previous Heme consult from 11/2018 it was recommended to maintain warfarin treatment and recheck US of leg in 6 weeks (from November 2018) to ensure proper response to her Warfarin. I reviewed available records I do not see a repeat US of leg. I did order repeat US on 03/23/19 and result: "Interval resolution of partial thrombosis of the LEFT profunda femoral vein compared with the November 12, 2018 exam. but Nonvisualization and therefore potential thrombosis of one of the RIGHT and one of the LEFT posterior tibial veins. In contrast on the November 12, 2018 exam the paired posterior tibial veins were visualized and appeared patent." Given the resolution of one of the previous DVT, Therefore I don't suspect that she is warfarin failure. In regard to the new questionable non visualized right and left posterior tibial vein and could mean being thrombosed is inconclusive and I feel it is adequate to maintain on warfarin. Will discuss with oncology on non emergent basis. (8) Hypothyroidism Current Visit: No Status: Chronic Code(s): E03.9 - HYPOTHYROIDISM, UNSPECIFIED SNOMED Code(s): 14270237 Comment: - Continue current levothyroxine 12.5 mg daily - No recent value since 07/2018 will check with am labs (9) DVT prophylaxis Current Visit: No Status: Acute Onset Date: 10/14/14 Code(s): JKX8607 - SNOMED Code(s): 000450609 Comment: - On warfarin Status and Disposition: Observation. Dispo TBD.
[2019-03-24] MEDS ORDERED: methylPREDNISolone ACETATE 80* 80 MG/ML 1 ML VIAL ONE (15:07)
[2019-03-24] MEDS ORDERED: Warfarin TAB(*) 5 MG PO ONE (17:00)
[2019-03-24] MEDS: Famotidine TAB* 20 MG PO SCH (20:25)
[2019-03-24] MEDS: Cyclobenzaprine TAB* 10 MG PO PRN (20:25)
[2019-03-24] MEDS ORDERED: Enoxaparin(*) 80 MG/0.8 ML SYR SUBCUT SCH (21:00)
[2019-03-25 05:35] LABS: ABS Monocytes 0.1 10^3/ul (0-0.8); ABS Neutrophils 3.3 10^3/ul (1.5-7.7); Eosinophil % 0.1 %; Hematocrit 38 % (35-47); Hemoglobin 12.3 g/dL (12.0-16.0); Lymphocyte % 22.7 %; Mean Corpuscular HGB Conc 32 g/dL (31-36); Mean Corpuscular Hemoglobin 31 pg (27-31); Mean Corpuscular Volume 95 fL (80-97); Mean Platelet Volume 8.4 fL (7.4-10.4); Nucleated Red Blood Cells % 0.1; Platelet Count 148 10^3/uL (150-450); Red Blood Count 4.02 10^6 /uL (3.70-4.87); Red Cell Distribution Width 17 % (10-15); White Blood Count 4.4 10^3/uL (3.5-10.8)
[2019-03-25 05:41] LABS: INR 1.43 (0.82-1.09)
[2019-03-25 05:53] LABS: BUN/Creatinine Ratio 37.7 (8-20); Calcium 8.4 mg/dL (8.6-10.3); EGFR African American 54.4 (>60); Potassium 4.6 mmol/L (3.5-5.0)
[2019-03-25] MEDS: Levothyroxine TAB* 25 MCG TAB PO SCH (06:22)
[2019-03-25] MEDS: SPIRIVA Respimat* (tiotropium) 2.5 mcg/inh Inhaler INH SCH (07:20)
[2019-03-25] MEDS: CMCS:Lubiprostone 24 MCG CAP (NF) PO SCH (08:22)
[2019-03-25] MEDS: Calcium/Vitamin D TAB 250/125* TAB PO SCH (08:23)
[2019-03-25] MEDS: Ferrous Sulfate TAB* 325 MG PO SCH (08:23)
[2019-03-25] MEDS: oxyCODONE TAB* 5 MG TAB PO PRN ×2 (08:23→15:12)
[2019-03-25] MEDS: Torsemide TAB* 20 MG PO SCH (08:23)
[2019-03-25] MEDS: Metoprolol Succinate XL TAB* 25 MG PO SCH (08:24)
[2019-03-25] MEDS: Pregabalin CAP(*) 50 MG PO SCH (08:24)
[2019-03-25] MEDS: Spironolactone TAB* 25 MG PO SCH (08:24)
[2019-03-25] MEDS: Magnesium Oxide TAB* 400 MG PO SCH (08:24)
--- NOTE | 2019-03-25 10:52 | PN ---
Subjective Date of Service: 03/25/19 Interval History: patient seen today, s/p left hip joint steroid injection and aspirations. She reports only minimal benefit. Still having difficulty using her left hip and ambulating. Otherwise. No distress. Awaiting placement for STR Past Medical History: Unchanged from Admission Objective Active Medications: Acetaminophen (Tylenol Tab*) 650 mg PO Q4H PRN PRN Reason: PAIN Last Admin: 03/23/19 20:42 Dose: 650 mg Albuterol/Ipratropium (Duoneb (Albuterol 2.5 Mg/Ipratropium 0.5 Mg)) 1 neb INH Q4H PRN PRN Reason: SOB/WHEEZING Artificial Tears (Natural Balance Tears Eye Drop) 1 drop BOTH EYES Q2H PRN PRN Reason: DRY EYE Calcium/Vitamin D (Oscal D Tab 250/125*) 1 tab PO QAM [facility] Last Admin: 03/25/19 08:23 Dose: 1 tab Cyclobenzaprine HCl (Flexeril Tab*) 5 mg PO BID PRN PRN Reason: PAIN Last Admin: 03/24/19 20:25 Dose: 5 mg Enoxaparin Sodium (Lovenox(*)) 70 mg SUBCUT Q24H [facility] Last Admin: 03/24/19 20:23 Dose: 70 mg Famotidine (Pepcid Tab*) 20 mg PO BEDTIME [facility]; Protocol Last Admin: 03/24/19 20:25 Dose: 20 mg Ferrous Sulfate (Ferrous Sulfate Tab*) 325 mg PO DAILY [facility] Last Admin: 03/25/19 08:23 Dose: 325 mg Levothyroxine Sodium (Synthroid Tab*) 12.5 mcg PO QAM@0600 [facility] Last Admin: 03/25/19 06:22 Dose: 12.5 mcg Lidocaine (Lidoderm 5% Patch*) 1 patch TRANSDERM DAILY PRN PRN Reason: PAIN Lorazepam (Ativan Tab(*)) 0.5 mg PO BEDTIME PRN PRN Reason: ANXIETY Lubiprostone (Amitiza (Nf)) 24 mcg PO BID [facility] Last Admin: 03/25/19 08:22 Dose: 24 mcg Magnesium Oxide (Magox 400 Tab*) 400 mg PO QAM [facility] Last Admin: 03/25/19 08:24 Dose: 400 mg Metoprolol Succinate (Toprol Xl Tab*) 25 mg PO QAM [facility] Last Admin: 03/25/19 08:24 Dose: 25 mg Morphine Sulfate (Morphine Inj (Syringe))*) 1 mg IV Q1H PRN PRN Reason: SEVERE PAIN Last Admin: 03/22/19 11:15 Dose: 1 mg Oxycodone HCl (Roxycodone Tab*) 15 mg PO Q6H PRN PRN Reason: PAIN - MODERATE Last Admin: 03/25/19 08:23 Dose: 15 mg Pharmacy Profile Note (Coumadin Daily Reminder*) 0 note FOLLOW UP 1700 [facility] Polyethylene Glycol/Electrolytes (Miralax*) 17 gm PO DAILY PRN PRN Reason: CONSTIPATION Pregabalin (Lyrica Cap(*)) 50 mg PO BID [facility] Last Admin: 03/25/19 08:24 Dose: 50 mg Spironolactone (Aldactone Tab*) 25 mg PO DAILY [facility] Last Admin: 03/25/19 08:24 Dose: 25 mg Tiotropium [place] (Spiriva Respimat 2.5 Mcg) 2 puff INH DAILY [facility] Last Admin: 03/25/19 07:20 Dose: 2 puff Torsemide (Demadex*) 40 mg PO QAM [facility] Last Admin: 03/25/19 08:23 Dose: 40 mg Trazodone HCl (Desyrel Tab*) 25 mg PO BEDTIME PRN PRN Reason: SLEEP Warfarin Sodium (Coumadin Tab(*)) 5 mg PO DAILY@1700 [facility]; Protocol Vital Signs - 8 hr 03/25/19 03/25/19 03/25/19 03:15 06:13 06:14 Temperature 98.5 F Pulse Rate 84 Respiratory 16 16 16 Rate Blood Pressure 119/54 (mmHg) O2 Sat by Pulse 97 Oximetry 03/25/19 03/25/19 03/25/19 07:21 08:00 08:21 Temperature 98.2 F Pulse Rate 70 86 Respiratory 16 16 16 Rate Blood Pressure 134/47 (mmHg) O2 Sat by Pulse 92 94 Oximetry 03/25/19 03/25/19 08:23 08:24 Temperature Pulse Rate Respiratory 18 18 Rate Blood Pressure (mmHg) O2 Sat by Pulse Oximetry Oxygen Devices in Use Now: Nasal Cannula Appearance: awake, alert. no distress Eyes: No Scleral Icterus, - - EOMI Ears/Nose/Mouth/Throat: Mucous Membranes Moist Neck: NL Appearance and Movements; NL JVP, Trachea Midline Respiratory: Symmetrical Chest Expansion and Respiratory Effort, Clear to Auscultation Cardiovascular: NL Sounds; No Murmurs; No JVD, - - + 2 edema Abdominal: NL Sounds; No Tenderness; No Distention Skin: - - bilateral lower extremeties wounds with cluster of open areas and granulations, erythema Result Diagrams: 03/25/19 04:43 03/25/19 04:43 Microbiology and Other Data: Microbiology 03/24/19 15:50 Gram Stain - Final Joint Fluid(Synovial) - Hip Left Skin and Soft Tissue MRSA/MSSA (PCR - Final Mrsa Negative S.aureus Negative Diagnostic Imagin02/25/19 - VL ANK/BRACHIAL INDICES REPORT: The right ankle brachial index is 0.98 at the lower range of normal. Biphasic posterior tibial and triphasic dorsalis pedis waveforms. Arterial flow documented at the RIGHT great toe with toe brachial index equal to 0.88 moderately abnormal. Absence of reflected waves on ankle pulse volume recording. The left ankle brachial index could not be calculated due to noncompressible vessels. Biphasic posterior tibial and triphasic dorsalis pedis waveforms. Arterial flow documented at the LEFT great toe. 0.842 brachial index moderately abnormal. Absence of significant reflected waves on LEFT ankle pulse volume recording. IMPRESSION: #. Borderline low RIGHT ankle ankle brachial index. The LEFT ankle brachial index could not be calculated due to noncompressible vessels. Based on the spectral waveforms and pulse volume recordings as well as the moderately abnormal bilateral toe brachial indices there is evidence for arterial compromise to both lower extremities. Correlate with clinical assessment and consider CT angiogram runoff to assess for inflow disease and intrinsic lower extremity stenoses. Assess/Plan/Problems-Billing Assessment: This is an 88 year old female with complex medical history that presents to the ER with complaints of chronic left hip pain and inability to ambulate. - Patient Problems (1) Osteoarthritis of left hip Current Visit: Yes Status: Acute Code(s): M16.12 - UNILATERAL PRIMARY OSTEOARTHRITIS, LEFT HIP SNOMED Code(s): 869028842400241 Comment: - Severe osteoarthritis of the left hip on her MRI along with large Joint effusions. - I discussed with orthopedic regarding her left hip arthritis and effusion and recommended aspirate of the fluid and intrasynovial steroid injections. S/p IR aspiration of her synovial fluid from her left hip. Cutlure pending. 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 and now present for left hip pain due to osteoarthritis and again repeat MRI found to have stable lesion - Orthopedic did consult and recommended to have outpatient follow up with oncology orthopedic in [place] appointment made 03/31/19 (3) A-fib Current Visit: No Status: Acute Code(s): I48.91 - UNSPECIFIED ATRIAL FIBRILLATION SNOMED Code(s): 45937985 Comment: - Continue metoprolol-XL 25 mg daily for rate control - Continue warfarin for AC , currently is being bridged with lovenox until warfarin is therapeutic (4) Chronic kidney disease Current Visit: No Status: Acute Code(s): N18.9 - CHRONIC KIDNEY DISEASE, UNSPECIFIED SNOMED Code(s): 308749022 Comment: - Stable ayt creatinine 1.42 (5) Chronic obstructive pulmonary disease (COPD) Current Visit: No Status: Acute Code(s): J44.9 - CHRONIC OBSTRUCTIVE PULMONARY DISEASE, UNSPECIFIED SNOMED Code(s): 64194801 Comment: - Home inhalers Albuterol and spiriva respimat (6) Diastolic CHF Current Visit: No Status: Acute Code(s): I50.30 - UNSPECIFIED DIASTOLIC ( CONGESTIVE) HEART FAILURE SNOMED Code(s): 203613383 Comment: - chronic stable in No acute exacerbation - Continue home torsemide 40 mg and aldactone 25 mg daily - Last echo 07/2018 EF 55% and evidence of diastollic dysfunctions (7) Femoral DVT (deep venous thrombosis) Current Visit: No Status: Acute Code(s): I82.419 - ACUTE EMBOLISM AND THROMBOSIS OF UNSPECIFIED FEMORAL VEIN SNOMED Code(s): 463114983 Comment: - On Warfarin INR 2.26 on 03/21/19 - Based on previous Heme consult from 11/2018 it was recommended to maintain warfarin treatment and recheck US of leg in 6 weeks (from November 2018) to ensure proper response to her Warfarin. I reviewed available records I do not see a repeat US of leg. I did order repeat US on 03/23/19 and result: "Interval resolution of partial thrombosis of the LEFT profunda femoral vein compared with the November 12, 2018 exam. but Nonvisualization and therefore potential thrombosis of one of the RIGHT and one of the LEFT posterior tibial veins. In contrast on the November 12, 2018 exam the paired posterior tibial veins were visualized and appeared patent." Given the resolution of one of the previous DVT, Therefore I don't suspect that she is warfarin failure. In regard to the new questionable non visualized right and left posterior tibial vein I did discuss with Joey and we both agreed that it is safe to continue warfarin since it has been demonstrated that her partial thrombosis of the LEFT profunda femoral vein has been resolved. I would recommend to repeat US of legs again in 4-6 weeks for ongoing monitoring (8) Hypothyroidism Current Visit: No Status: Chronic Code(s): E03.9 - HYPOTHYROIDISM, UNSPECIFIED SNOMED Code(s): 91404142 Comment: - Continue current levothyroxine 12.5 mg daily - TSH 03/24/19 normal at 2.44 (9) DVT prophylaxis Current Visit: No Status: Acute Onset Date: 10/14/14 Code(s): POH9192 - SNOMED Code(s): 574322193 Comment: - On warfarin Status and Disposition: Observation. Dispo TBD.
--- NOTE | 2019-03-25 14:00 | DS ---
CC: Dr. Suarez, Orthopedic; Dr. Thompson DISCHARGE SUMMARY: DATE OF ADMISSION: 03/21/19 DATE OF DISCHARGE: 03/25/19 HOSPITAL COURSE: The patient presented to [facility] on 03/21/19 for severe left hip pain from home, which is chronic, progressive, had previous admission for it as well and has required robert ab and ended up going back home from rehab. She was home in about couple of weeks before her pain go t worse again and she came in to the ER to be evaluated. Her pain was 10/10, having difficulty ambul ating, therefore she is back to our facility. On admission, her initial workup were fairly unremarka ble with only significant finding is left hip effusion and also persisted right iliac crest bone lesi on, which was present in her previous admission in November. The patient was brought in to the medicine s ervice and she underwent MRI of her pelvis, which did show a large left hip effusion in her joint and stable right iliac bone lesion unchanged from her MRI from 11/13/18. The patient was seen by me for the initial encounter on 03/23/19. I spoke with Orthopedic and they did arrange to follow up with [facility] office as an outpatient for her left hip pain and recommended joint aspiration and steroid injec tion via IR. I was able to setup her procedure for 03/24/19 and she had about 50 cc aspirated. The f inal fluid is pending for cultures and she had a steroid injection. When she was seen today, she sti ll have some pain, has minimal improvement. Physical Therapy has been working with her. She is able to transfer out of bed to the commode and discussed that during the multidisciplinary round, she was accepted to be transferred to [facility] for short-term rehab. Bed offer was given today. DISCHARGE MEDICATIONS: 1. Resume Tylenol 650 p.r.n. for pain. 2. Artificial Tears. 3. Calcium with vitamin D daily. 4. Flexeril 5 b.i.d. p.r.n. 5. Lovenox 70 mg once a day until her INR is therapeutic. 6. Iron 325 daily. 7. Levoxyl 12.5 mcg daily. 8. Lidocaine patch, apply daily. 9. Ativan 0.5 at bedtime. 10. Amitiza 24 mcg b.i.d. 11. Magnesium 400 daily. 12. Metoprolol 25 mg p.o. q.a.m. 13. Oxycodone 15 mg q.6 p.r.n. 14. MiraLax 17 g daily. 15. Lyrica 50 b.i.d. 16. Ranitidine 150 daily. 17. Aldactone 25 daily. 18. Spiriva 18 mcg daily. 19. Torsemide 40 daily. 20. Trazodone 25 at bedtime. 21. Coumadin 3 mg daily. 22. Actonel 35 mg weekly. DISCHARGE RECOMMENDATIONS: The patient is to continue her Lovenox and check her INR daily until her I NR is therapeutic. Physical Therapy, Occupational Therapy. The patient is to follow up with the Orthopedic Oncology in [place] for her right iliac bone lesion . It is scheduled on 03/31/19. Daughter to transport her. The patient is to follow up with Dr. Suarez for her left osteoarthritis as scheduled. See case manage r for appointment date and time. Please obtain PT/INR daily and discontinue Lovenox once INR is therapeutic. DISCHARGE DISPOSITION: [facility]. DISCHARGE CONDITION: Stable. [id number]/CPS #: [id number]
[2019-03-25 14:21] VITALS: BP 99/39
[2019-03-25] MEDS ORDERED: Warfarin TAB(*) 5 MG PO SCH (17:00)
== END 2019-03-25 15:30 | DRG 554 ==
LOC: ED 17:06 → MED 21:40 → OBSVTOIN 21:50
PROVIDERS: ADMIT Internal Medicine; ATTEND Internal Medicine
DX: M16.12 Unilateral primary osteoarthritis, left hip (principal); I13.0 Hypertensive heart and chronic kidney disease with heart failure and stage 1 through stage 4 chronic kidney disease, or unspecified chronic kidney disease; I50.32 Chronic diastolic (congestive) heart failure; C79.51 Secondary malignant neoplasm of bone; M84.48XA Pathological fracture, other site, initial encounter for fracture; D61.818 Other pancytopenia; M25.452 Effusion, left hip; M89.9 Disorder of bone, unspecified; J44.9 Chronic obstructive pulmonary disease, unspecified; Z99.81 Dependence on supplemental oxygen; I48.91 Unspecified atrial fibrillation; N18.3 Chronic kidney disease, stage 3 (moderate); F41.9 Anxiety disorder, unspecified; I25.10 Atherosclerotic heart disease of native coronary artery without angina pectoris; E78.5 Hyperlipidemia, unspecified; G89.29 Other chronic pain; D69.6 Thrombocytopenia, unspecified; E03.9 Hypothyroidism, unspecified; M54.16 Radiculopathy, lumbar region; K40.90 Unilateral inguinal hernia, without obstruction or gangrene, not specified as recurrent; I07.1 Rheumatic tricuspid insufficiency; I87.2 Venous insufficiency (chronic) (peripheral); M70.60 Trochanteric bursitis, unspecified hip; Z79.01 Long term (current) use of anticoagulants; Z88.2 Allergy status to sulfonamides; Z86.718 Personal history of other venous thrombosis and embolism; Z79.891 Long term (current) use of opiate analgesic; Z79.51 Long term (current) use of inhaled steroids; Z79.899 Other long term (current) drug therapy; Z88.5 Allergy status to narcotic agent; Z88.0 Allergy status to penicillin; Z88.8 Allergy status to other drugs, medicaments and biological substances; Z82.49 Family history of ischemic heart disease and other diseases of the circulatory system; Z87.891 Personal history of nicotine dependence
CPT/HCPCS: 27093; 36415; 72192; 72197; 80048; 80053; 81003; 83735; 84100; 84443; 85025; 85610; 85652; 86140; 87070; 87205; 87640; 87641; 93970; 94640; 99284; A9270-GY; A9579; G8978-GP-CK; G8979-GP-CI; J1040; J1650; J2270; J3535; Q9965

== ENCOUNTER 2019-05-03 09:45 | Emergency (ER) | payer MEDICARE, BC ==
--- NOTE | 2019-05-03 10:00 | ED ---
HPI Chest Pain - HPI Summary HPI Summary: Pt is an 89 y/o F w hx afib on coumadin, recent L hip fr (non op) presenting to the ED via EMS for chest pain with a sudden onset on the morning of 05/03/19. Pt was given NTG by EMS which did not help the pain. She states she was advised not to use aspirin. Pt admits occasional SOB, hip pain, and a cough for several days. Pt describes the pain as aching and that radiates to the back. She reports chronic back pain 2/2 lying in bed a lot (for which she gets 15 mg oxycodone at home). Pt rates the pain as 6/10 in severity for the hip and chest pain. Pt reports that her bilateral LE swelling for several months. Pt had a hematoma on the right arm with dressing that is supposed to be removed on 05/03/19. Pt denies nausea or vomiting. Pt takes Warfarin for a PMHx of atrial fibrillation. Pt has a PSHx of hip surgery for a hip fracture. Pt does not typically use oxygen at home. Pt was previously at [facility]. Pt has been living at [facility] for 4 weeks. Pt does not typically ambulate. 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 Negative: Nausea, Vomiting - Additional Pertinent History Primary Care Physician: [id number] - Allergy/Home Medications Allergies/Adverse Reactions: Allergies Allergy/AdvReac Type Severity Reaction Status Date / Time fentanyl Allergy Unknown Difficulty Verified 03/21/19 17:22 Breathing sulfamethoxazole AdvReac Intermediate Nausea Verified 03/21/19 17:22 [From Bactrim] trimethoprim [From Bactrim] AdvReac Intermediate Nausea Verified 03/21/19 17:22 ciprofloxacin AdvReac Hives Verified 03/21/19 17:22 codeine AdvReac Hives Verified 03/21/19 17:22 Penicillins AdvReac Hives Verified 03/21/19 17:22 Home Medications: Home Medications Budesonide/Formote 160/4.5(NF) [Symbicort 160/4.5 (NF)] 2 puff INH BID 05/03/19 [History Confirmed 05/03/19] Influenza VAC *QUAD* 2018-* [Fluarix Quad 4196-3466 Syr] 0.5 ml IM ONCE [History Confirmed 05/03/19] Minerin Cream* [Minerin*] 1 applic TOPICAL TID 05/03/19 [History Confirmed 05/03] Warfarin TAB(*) [Coumadin TAB(*)] 2 mg PO QPM 05/03/19 [History Confirmed ] PMH/Surg Hx/FS Hx/Imm Hx Previously Healthy: Yes Endocrine/Hematology History: Reports: Hx Anticoagulant Therapy - coumadin for a fib, Hx Blood Disorders - chronic thrombocytopenia, Hx Thyroid Disease - juwan, Hx Anemia Denies: Hx Diabetes Cardiovascular History: Reports: Hx Angina, Hx Congestive Heart Failure, Hx Coronary Artery Disease, Hx Deep 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 PT WITH TB 1994 Denies: Hx Lung Cancer, Hx Pulmonary Embolism GI History: Reports: Hx Gall Bladder Disease - cholecystectomy 1976, Hx Gastroesophageal Reflux Disease - CONTROL WITH MED, Hx Ulcer, Other GI Disorders - partial gastrectomy 1972 Denies: Hx Gastrointestinal Bleed, Hx Urosepsis History: Reports: Hx Chronic Renal Failure, Other Problems/Disorders - hysterectomy Denies: Hx Acute Renal Failure, Hx Benign Prostatic Hyperplasia, Hx Kidney Stones, Hx Renal Disease Musculoskeletal History: Reports: Hx Arthritis - BACK, KNEES, Hx Back Problems - lumbar laminectomy 1995, Hx Orthopedic Injury - hx r arm, r ankle, toes, Other Musculoskeletal History - back surgery 1995 Sensory History: Reports: Hx Cataracts - removed, Hx Contacts or Glasses - reading glasses Denies: Hx Eye Injury, Hx Eye Prosthesis, Hx Glaucoma, Hx Macular Degeneration, Hx Deafness, Hx Hearing Aid, Hx Hearing Problem, Other Sensory Impairments Opthamlomology History: Reports: Hx Cataracts - removed, Hx Contacts or Glasses - reading glasses Denies: Hx Eye Injury, Hx Eye Prosthesis, Hx Glaucoma, Hx Macular Degeneration, Other Sensory Impairments Neurological History: Reports: Other Neuro Impairments/Disorders - PERIPHERAL NEUROPATHY BILAT Denies: Hx Dementia, Hx Developmental Delay, Hx Migraine, Hx Seizures, Hx Transient Ischemic Attacks (TIA) Psychiatric History: Reports: Hx Anxiety - CONTROL WITH MED, Hx Depression - CONTROL WITH MED Denies: Hx Panic Disorder, Hx Schizophrenia, Hx Bipolar Disorder, Hx Suicide Attempt, Hx of Violent Episodes Against Others - Cancer History Cancer Type, Location and Year: breast lumpectomy was benign Hx Chemotherapy: No Hx Radiation Therapy: No - Surgical History Surgical History: Yes Surgery Procedure, Year, and Place: T&A A CHILD. groin abscess A CHILD. appendectomy, cholecystectomy, [facility]. hysterectomy partial, [facility]. thyroidectomy partial, [facility]. L breast and R lung biopsies, [facility]. 1995 laminectomy L4,5, [facility]. gastrectomy partial 1973 r/t hemmorhaging ulcer;. Carpal Tunnel Surgery Right Wrist by Dr. Chauhan in July 2015. BILAT CATARACTS, [facility]. right lymph node bx 1994, [facility]. left leg surgery- vein 2003 [facility] (NO STENTS). Left Breast lumpectomy [place], [facility] [place] Hx Anesthesia Reactions: No - Immunization History Date of Tetanus Vaccine: 2013 Date of Influenza Vaccine: Fall 2012 Infectious Disease History: No Infectious Disease History: Reports: Hx Tuberculosis, History Other Infectious Disease - hx e-coli sepsis and pneumonia February 2017 Denies: Hx Clostridium Difficile, Hx Hepatitis, Hx Human Immunodeficiency Virus (HIV), Hx of Known/Suspected MRSA, Hx Known/Suspected VRE, Hx Known/ Suspected VRSA, Traveled Outside the [place] in Last 30 Days - Family History Known Family History: Positive: Cardiac Disease - father - CHF, brother - aneurysm Negative: Hypertension, Diabetes - Social History Occupation: Retired Lives: Assisted Living - [facility] Alcohol Use: Occasionally Alcohol Amount: 2 drinks per week Hx Substance Use: Yes Substance Use Type: Reports: None Substance Use Comment - Amount & Last Used: oxycodone and oxymorphone Hx Tobacco Use: Yes Smoking Status (MU): Former Smoker Type: Cigarettes Amount Used/How Often: 2 packs per week Length of Time of Smoking/Using Tobacco: ON AND OFF 45 YRS Have You Smoked in the Last Year: No Review of Systems Positive: Chest Pain Positive: Shortness Of Breath, Cough Negative: Vomiting, Nausea Positive: Arthralgia - Hip pain, Myalgia - Back pain that radiates from chest, Edema - Bilateral LE Positive: Other - Positive hematoma on right elbow All Other Systems Reviewed And Are Negative: Yes Physical Exam - Summary Physical Exam Summary: Constitutional: Well-developed, Well-nourished, Alert. (-) Distressed. Elderly Skin: Warm, Dry HENT: Normocephalic; Atraumatic Eyes: Conjunctiva normal Neck: Musculoskeletal ROM normal neck. (-) JVD, (-) Stridor, (-) Nuchal rigidity Cardio: Rhythm regular, rate normal, Heart sounds normal; Intact distal pulses; Radial pulses are 2+ and symmetric. (-) Murmur Pulmonary/Chest wall: Effort normal. (-) Respiratory distress, (-) Wheezes, (-) Rales Abd: Soft, (-) tenderness, (-) Distension, (-) Guarding, (-) Rebound Musculoskeletal: mild left hip tenderness, hematoma to right elbow, LE swelling 2+ bilaterally Lymph: (-) Cervical adenopathy Neuro: Alert, Oriented x3 Psych: Mood and affect Normal Triage Information Reviewed: Yes Vital Signs On Initial Exam: Initial Vitals Temp Pulse Resp BP Pulse Ox 98.6 F 99 12 129/76 95 05/03/19 09:48 05/03/19 09:48 05/03/19 09:48 05/03/19 09:48 05/03/19 09:48 Vital Signs Reviewed: Yes Procedures - Sedation Patient Received Moderate/Deep Sedation with Procedure: No Diagnostics - Vital Signs Vital Signs Temp Pulse Resp BP Pulse Ox 05/03/19 09:54 99 05/03/19 09:48 98.6 F 99 12 129/76 95 - Laboratory Result Diagrams: 05/03/19 10:14 05/03/19 10:14 Lab Statement: Any lab studies that have been ordered have been reviewed, and results considered in the medical decision making process. - Radiology Chest X-ray Radiology Interpretation Completed By: Radiologist Summary of Radiographic Findings: Chest X-ray IMPRESSION: CARDIOMEGALY. COPD. Reviewed by ED physician. - EKG 09:47 Cardiac Rate: Other Rate - 91 BPM EKG Rhythm: Atrial Fibrillation ST Segment: Normal Ectopy: None Summary of EKG Findings: EKG at 09:47 reveals atrial fibrillation with 91 BPM, no STEMI, no acute changes. Reviewed and interpreted by ED physician. Re-Evaluation - Re-Evaluation First Eval Re-Evaluation Time: 11:27 Change: Unchanged Comment: At 11:27, pt states she takes 15 mg oxycodone for chronic back pain. Will give the pt pain meds. Neg trop x1 Second Eval Re-Evaluation Time: 14:21 Change: Unchanged Comment: At 14:21, pt is sleeping. Third Eval Re-Evaluation Time: 14:50 Change: Improved - Patient resting, no acute distress. Discussed that chest tightness given secondary to COPD, she feels better after her neb. Patient advised to follow-up with her orthopedic surgeon regarding when she can walk again and she is asking me this. Chest Pain Course/Dx - Course Course Of Treatment: 89-year-old female history of A. fib on Coumadin, recent left hip fracture treated nonoperatively, presents with chest pain at rest. Echo 2019 showed EF 50-55% w mitral and tricuspid regurg. Chest Pain DDX: The patient is well appearing, with stable vitals. Given the patient's clinical presentation, highest on differential is atypical CP vs COPD. Although less likely, differential also includes the following: --Pneumothorax: Equal breath sounds, story inconsistent since gradual onset of symptoms. CXR shows no evidence of pneumothorax. Unlikely. --Cardiac tamponade: The history and physical are not concerning for tamponade. No Pulsus Paradoxus, no tachypnea. Unlikely. --Mediastinitis or esophageal rupture: The history is not consistent , as the patient has had no recent history of significant wretching, instrumentation, or mediastinal surgeries. Unlikely. --Aortic dissection: The patient does not describe the classical tearing chest pain radiating into the back, and the CXR does not show mediastinal widening or other signs of aortic dissection. Unlikely. --PE: Vitals wnl (not hypoxic, tachycardic or tachypneic) . Wells low risk, d dimer neg. --ACS: The initial EKG shows no ischemic changes. The initial troponin is not elevated. - Diagnoses Provider Diagnoses: Chest pain, Back pain Discharge ED - Sign-Out/Discharge Documenting (check all that apply): Patient Departure - Discharge - Discharge Plan Condition: Stable Disposition: HOME Patient Education Materials: Chest Pain (ED) Referrals: Jose Thompson MD [Primary Care Provider] - Additional Instructions: You were seen in the emergency department for chest pain and back pain. Your labs showed chest pain. If any studies were not completed at the time of discharge you will be called with the relevant results. Please follow up with your primary care doctor in the next 2-3 days and return to the emergency department for worsening or concerning symptoms. It was a pleasure taking care of you today. - Billing Disposition and Condition Condition: STABLE Disposition: Home - Attestation Statements Document Initiated by Susan: Yes Documenting Scribe: Renetta Herbert Provider For Whom Susan is Documenting (Include Credential): Miguel Angel Trivedi MD Scribe Attestation: I, Renetta Herbert, scribed for Miguel Angel Trivedi MD on 05/03/19 at 1506. Scribe Documentation Reviewed: Yes Provider Attestation: The documentation as recorded by the Renetta lynne accurately reflects the service I personally performed and the decisions made by me, Miguel Angel Trivedi MD Status of Scribe Document: Viewed
[2019-05-03 10:24] LABS: Hematocrit 39 % (35-47); Hemoglobin 12.9 g/dL (12.0-16.0); Mean Corpuscular HGB Conc 33 g/dL (31-36); Mean Corpuscular Hemoglobin 31 pg (27-31); Mean Corpuscular Volume 95 fL (80-97); Mean Platelet Volume 9.5 fL (7.4-10.4); Platelet Count 130 10^3/uL (150-450); Red Blood Count 4.17 10^6 /uL (3.70-4.87); Red Cell Distribution Width 14 % (10-15); White Blood Count 3.5 10^3/uL (3.5-10.8)
[2019-05-03 10:34] LABS: ABS Lymphocytes 0.9 10^3/ul (1.0-4.8); ABS Monocytes 0.1 10^3/ul (0-0.8); ABS Neutrophils 2.5 10^3/ul (1.5-7.7); INR 1.42 (0.82-1.09); Lymphocyte % 26.5 %; Nucleated Red Blood Cells % 0.1
[2019-05-03 10:40] LABS: Albumin 3.6 g/dL (3.2-5.2); BUN/Creatinine Ratio 40.8 (8-20); EGFR African American 48.8 (>60); EGFR Non-African American 40.4 (>60); Globulin 3.6 g/dL (2-4); Potassium 4.6 mmol/L (3.5-5.0); Total Bilirubin 0.6 mg/dL (0.2-1.0); Total Protein 7.2 g/dL (6.4-8.9)
--- OUTSIDE RECORDS SUMMARY | 2019-05-03 11:11 | XMS REPORT | Continuity of Care Document ---
:1930 External Reference #:[id number] Author Name Casey Acosta M.D. (transmitted by agent of provider Trisha Plata) Address [address] [place] [id number] Care Team Providers Name Role Phone Jose Thompson MD - Family Care Team Information Hospitalist Medical Director [phone] Medicine Problems Active Problems Provider Date Dyspnea Kylee Montes M.D. Onset: 06/25/2011 Edema Kylee Montes M.D. Onset: 06/25/2011 Benign essential hypertension Kylee Montes M.D. Onset: 06/25/2011 Coronary arteriosclerosis Kylee Montes M.D. Onset: 06/25/2011 Electrocardiogram abnormal Kylee Montes M.D. Onset: 06/25/2011 Atrial fibrillation Kylee Montes M.D. Onset: 06/25/2011 Chest pain [place] [facility] Schedule Onset: 07/25/2013 Chronic atrial fibrillation Kylee Montes M.D. Onset: 06/22/2015 Chronic obstructive lung disease Edwina Wilkinson MD Onset: 10/03/2016 Hypoxemia Edwina iWlkinson MD Onset: 11/04/2016 Heart failure, unspecified Darrell Terry MD Onset: 05/22/2018 Chronic kidney disease Darrell Terry MD Onset: 05/22/2018 Insomnia Darrell Terry MD Onset: 05/22/2018 Social History Type Date Description Comments Sex Unknown Tobacco Use Start: Unknown Quit in 1988 ETOH Use Denies alcohol use Tobacco Use Start: Unknown End: Patient is a former Unknown smoker Recreational Drug Use Never Used Drugs Tobacco Use Start: Unknown Light tobacco smoker 2 Packs/week for (10 or fewer several years, did cigarettes/day) not smoke when Smoking Status Reviewed: 03/30/19 Light tobacco smoker 2 Packs/week for (10 or fewer several years, did cigarettes/day) not smoke when Exercise Type/Frequency Exercises sporadically Allergies, Adverse Reactions, Alerts Active Allergies Reaction Severity Comments Date Cipro 08/14/2009 Duragesic 08/14/2009 Penicillin 08/14/2009 Bactrim nausea 01/30/2012 Codeine 03/07/2014 Fentanyl 12/12/2014 Medications Active Medications SIG Qnty Indications Ordering Date Provider Clindamycin HCL 1 po q 8 hrs 40caps Unknown 01/31/2019 300mg Capsules Spironolactone 1 tablet by mouth 45tabs Noa Michel, 10/12/2018 25mg every day N.P. Tablets Torsemide 1 tablet 60tabs I50.32 Yumi Torres, 05/31/2018 20mg Tablets alternating with 2 BUSINESS MACHINES TEACHER tablets by mouth daily Duoneb 1 inhalation three Qutaybeh S. 02/19/2018 Inhaler times daily as Dino Montes needed Oxygen please use o2 at 1units R09.02 Cuca 05/11/2017 Misc 2.5l/min at night RADHA Rucker and 2ml/min with exertion. pls provide pt with portable o2 concentrator Miralax 17 gm qd prn 1Mon Other Ordering 09/29/2012 3350NF Packet Provider Lorazepam as needed Unknown 0.5mg Tablets Amitiza 1 by mouth twice a Unknown 24mcg Capsules day Simethicone 1 tab every 6 hours Unknown 80mg Chewtabs as needed bloating Lidoderm 1 apply to affected Unknown 5% Patches area 12 hours on, 12 hours off as needed Trazodone HCL 1/2 by mouth as Unknown 50mg needed Tablets Risedronate Sodium take 1 tablet by 4tabs Unknown 35mg mouth every week. Tablets Acetaminophen 2 every 4 hours as Unknown 325mg needed for pain Tablets Polyvinyl Alcohol Unknown 1.4% Solution Calcium 500+D 1 by mouth every Unknown day [id number] Tablets Cyclobenzaprine HCL 1 by mouth at Unknown 5mg bedtime as needed Tablets for back pain Eucerin Plus Unknown 2.5-10% Cream Ferrous Sulfate 1 by mouth every Unknown 325(65Fe) day mg Tablets Glycolax Unknown 3350NF Powder Enoxaparin Sodium 80mg every 12 hours Unknown 80mg/0.8ML Solution Magox 400 take one half Unknown 400(241.3mg) mg tablet (200 mg) Tablets once a day Oxycodone HCL 1 tab by mouth Unknown 15mg every 6 hours as Tablets needed pain Fibercon 1 tab twice a day Unknown 625mg Tablets Ranitidine HCL take one tablet by Unknown 150mg mouth daily Tablets [place] 2 sprays each Unknown 0.65% Solution nostril as needed Ipratropium [place] 0.02% 1 vial via Unknown nebulizer every 4 Solution hrs prn for shortness of breath /wheezing Symbicort 2 puffs twice a day Unknown Aerosol rinse mouth after using Metoprolol Succinate 1.5 tab PO daily Unknown ER 25mg Tablets ER 24HR Levothyroxine Sodium 1/2 po qd Am 90tabs Unknown 25mcg Tablets Lyrica 1 capsule by mouth Unknown 50mg Capsules four times a day taken with each meal Vitamin D3 2 by mouth daily Unknown 800mg Tablets Oxycodone Capsules 1/2 tab every 4 hrs Unknown 20mg as needed Oxygen via nasal canula Unknown 2Liters/Min qhs/prn Xopenex HFA 1 puff qid prn 1Mon Unknown 45mcg/Act Aerosol Spiriva Handihaler 1 inhalation qam 3caps Unknown 18mcg Capsules Calcium 1 po qd Am 60caps Unknown 500mg Capsules Warfarin Sodium as directed managed 30tabs Unknown 2.5mg by family med Tablets Nitrostat one sl q5min up to 25tabs Unknown 0.4mg Tablets 3 doses prn Sub Medications Administered in Office Medication SIG Qnty Indications Ordering Provider Date Depomedrol 40MG Cuca Chauhan M.D. 12/06/2015 Injection Depomedrol 80MG Jake Lindsay M.D. 01/21/2013 Injection Immunizations CPT Code Status Date Vaccine Lot # [id number] Given 06/15/2017 Influenza Virus Vaccine, Quadrivalent, Split, [id number] Preservative Free Vital Signs Date Vital Result Comment 03/30/2019 11:39am Height 64 inches 5'4" Weight 150.00 lb Heart Rate 56 /min BP Systolic 120 mmHg BP Diastolic 70 mmHg Respiratory Rate 16 /min Body Temperature 98.8 F Pain Level 6 BMI (Body Mass Index) 25.7 kg/m2 02/08/2019 3:00pm Height 64 inches 5'4" Weight 148.00 lb Heart Rate 64 /min BP Systolic 104 mmHg BP Diastolic 64 mmHg Respiratory Rate 16 /min Body Temperature 97.1 F Pain Level 8 BMI (Body Mass Index) 25.4 kg/m2 Results Test Date Facility Test Result H/L Range Note Hemoglobin/Hemat 11/22/2018 [facility] Hemoglobin 8.7 g/dL Low 12.0-16.0 1 [address] [place] [address] [phone] Hematocrit 28 % Low 35-47 Inr/Protime 11/22/2018 [facility] Inr 1.39 High 0.82-1.09 2 [address] [place] [address] [phone] Basic Metabolic 11/22/2018 [facility] Sodium 144 mmol/L Normal 135-[address] [place] [address] [phone] Potassium 3.7 mmol/L Normal 3.5-5.0 Chloride 105 mmol/L Normal 101-111 Co2 Carbon Dioxide 32 mmol/L Normal 22-32 Anion Gap 7 mmol/L Normal 2-11 Glucose 84 mg/dL Normal 70-100 Blood Urea Nitrogen 37 mg/dL High 6-24 Creatinine 1.08 mg/dL High 0.51-0.95 BUN/Creatinine Ratio 34.3 High 8-20 Calcium 8.4 mg/dL Low 8.6-10.3 Egfr Non- 47.9 >60 Egfr 57.9 >60 3 Basic Metabolic 11/02/2018 [facility] Sodium 143 mmol/L Normal 135-145 Panel [address] [place] [address] [phone] Potassium 4.5 mmol/L Normal 3.5-5.0 Chloride 105 mmol/L Normal 101-111 Co2 Carbon Dioxide 32 mmol/L Normal 22-32 Anion Gap 6 mmol/L Normal 2-11 Glucose 71 mg/dL Normal 70-100 Blood Urea Nitrogen 37 mg/dL High 6-24 Creatinine 1.19 mg/dL High 0.51-0.95 BUN/Creatinine Ratio 31.1 High 8-20 Calcium 8.6 mg/dL Normal 8.6-10.3 Egfr Non- 42.8 >60 Egfr 51.8 >60 4 Laboratory test 11/02/2018 [facility] Magnesium 2.2 mg/dL Normal 1.9-2.7 finding [address] [place] [address] [phone] Basic Metabolic 10/14/2018 [facility] Sodium 141 mmol/L Normal 135-145 Panel [address] [place] [address] [phone] Potassium 4.2 mmol/L Normal 3.5-5.0 Chloride 104 mmol/L Normal 101-111 Co2 Carbon Dioxide 33 mmol/L High 22-32 Anion Gap 4 mmol/L Normal 2-11 Glucose 88 mg/dL Normal 70-100 Blood Urea Nitrogen 25 mg/dL High 6-24 Creatinine 1.09 mg/dL High 0.51-0.95 BUN/Creatinine Ratio 22.9 High 8-20 Calcium 8.3 mg/dL Low 8.6-10.3 Egfr Non- 47.4 >60 Egfr 57.3 >60 5 CBC Auto 10/11/2018 [facility] White Blood 5.1 10^3/uL Normal 3.5-10.[address] [place] [address] [phone] Red Blood Count 3.45 10^6/uL Low 3.70-4.87 Hemoglobin 9.3 g/dL Low 12.0-16.0 Hematocrit 30 % Low 33-41 Mean Corpuscular Volume 87 fL Normal 80-97 Mean Corpuscular Hemoglobin 27 pg Normal 27-31 Mean Corpuscular HGB Conc 31 g/dL Normal 31-36 Red Cell Distribution Width 20 % High 10.5-15 Platelet Count 130 10^3/uL Low 150-450 Mean Platelet Volume 9.1 fL Normal 7.4-10.4 Abs Neutrophils 3.2 10^3/uL Normal 1.5-7.7 Abs Lymphocytes 1.3 10^3/uL Normal 1.0-4.8 Abs Monocytes 0.5 10^3/uL Normal 0-0.8 Abs Eosinophils 0 10^3/uL Normal 0-0.6 Abs Basophils 0 10^3/uL Normal 0-0.2 Abs Nucleated RBC 0 10^3/uL Granulocyte % 63.1 % Lymphocyte % 25.2 % Monocyte % 10.4 % Eosinophil % 0.5 % Basophil % 0.8 % Nucleated Red Blood Cells % 0.1 Laboratory test 10/11/2018 [facility] Magnesium 1.9 mg/dL Normal 1.9-2.7 finding [address] [place] [address] [phone] Basic Metabolic 10/11/2018 [facility] Potassium 4.2 mmol/L Normal 3.5-5.0 Panel [address] [place] [address] [phone] Chloride 102 mmol/L Normal 101-111 Co2 Carbon Dioxide 35 mmol/L High 22-32 Glucose 96 mg/dL Normal 70-100 Blood Urea Nitrogen 31 mg/dL High 6-24 Creatinine 1.20 mg/dL High 0.51-0.95 BUN/Creatinine Ratio 25.8 High 8-20 Calcium 8.6 mg/dL Normal 8.6-10.3 Egfr Non- 42.4 >60 Egfr 51.3 >60 6 Sodium 146 mmol/L High 135-145 Anion Gap 9 mmol/L Normal 2-11 1 [facility] Unit [address], Room Number 116W [id number] 2 Standard intensity warfarin therapeutic range: 2.0-3.0 High intensity warfarin therapeutic range: 2.5-3.5 3 Because ethnic data is not always readily available, this report includes an eGFR for both -Americans and non- Americans. The National Kidney Disease Education Program (NKDEP) does not endorse the use of the MDRD equation for patients that are not between the ages of 18 and 70, are , have extremes of body size, muscle mass, or nutritional status, or are non- or non-. According to the National Kidney Foundation, irrespective of diagnosis, the stage of the disease is based on the level of kidney function: Stage Description GFR(mL/min/1.73 m(2)) 1 Kidney damage with normal or decreased GFR 90 2 Kidney damage with mild decrease in GFR 60-89 3 Moderate decrease in GFR 30-59 4 Severe decrease in GFR 15-29 5 Kidney failure <15 (or dialysis) 4 Because ethnic data is not always readily available, this report includes an eGFR for both -Americans and non- Americans. The National Kidney Disease Education Program (NKDEP) does not endorse the use of the MDRD equation for patients that are not between the ages of 18 and 70, are , have extremes of body size, muscle mass, or nutritional status, or are non- or non-. According to the National Kidney Foundation, irrespective of diagnosis, the stage of the disease is based on the level of kidney function: Stage Description GFR(mL/min/1.73 m(2)) 1 Kidney damage with normal or decreased GFR 90 2 Kidney damage with mild decrease in GFR 60-89 3 Moderate decrease in GFR 30-59 4 Severe decrease in GFR 15-29 5 Kidney failure <15 (or dialysis) 5 Because ethnic data is not always readily available, this report includes an eGFR for both -Americans and non- Americans. The National Kidney Disease Education Program (NKDEP) does not endorse the use of the MDRD equation for patients that are not between the ages of 18 and 70, are , have extremes of body size, muscle mass, or nutritional status, or are non- or non-. According to the National Kidney Foundation, irrespective of diagnosis, the stage of the disease is based on the level of kidney function: Stage Description GFR(mL/min/1.73 m(2)) 1 Kidney damage with normal or decreased GFR 90 2 Kidney damage with mild decrease in GFR 60-89 3 Moderate decrease in GFR 30-59 4 Severe decrease in GFR 15-29 5 Kidney failure <15 (or dialysis) 6 Because ethnic data is not always readily available, this report includes an eGFR for both -Americans and non- Americans. The National Kidney Disease Education Program (NKDEP) does not endorse the use of the MDRD equation for patients that are not between the ages of 18 and 70, are , have extremes of body size, muscle mass, or nutritional status, or are non- or non-. According to the National Kidney Foundation, irrespective of diagnosis, the stage of the disease is based on the level of kidney function: Stage Description GFR(mL/min/1.73 m(2)) 1 Kidney damage with normal or decreased GFR 90 2 Kidney damage with mild decrease in GFR 60-89 3 Moderate decrease in GFR 30-59 4 Severe decrease in GFR 15-29 5 Kidney failure <15 (or dialysis) Procedures Date Code Description Status 03/22/2019 35570 Rad Exam; Pelvis Completed 03/18/2019 12650 Removal Devitalization Tissue Wound Less Than Equal 20 Completed Square CM 11/04/2018 10319 Holter Monitor Review (24 hr)dr bee & interp only Completed 11/01/2018 36853 ECG Monitor/Recording W/Visual Superimposition Scanning Completed 11/01/2018 67402 ECG Monitor/Recording W/Visual Superimposition Scanning Completed 10/11/2018 36420 EKG Tracing & Interpretation Completed 10/11/2018 02072 EKG Tracing & Interpretation Completed 10/04/2018 31485 EKG Tracing & Interpretation Completed 08/22/2016 [id number] Mammogram Completed Medical Devices Description No Information Available Encounters Type Date Location Provider Dx Diagnosis Office Visit 03/22/2019 Wound Care Evi Justin L97.821 Non-prs chr ulcer 8:00a [facility] RADHA Hayes oth prt l low leg limited to brkdwn skin L97.811 Non-prs chr ulcer oth prt r low leg limited to brkdwn skin I89.0 Lymphedema, not elsewhere classified I87.2 Venous insufficiency (chronic) (peripheral) Office Visit 03/21/2019 10:12a [facility] Jena Huizar, M25.552 Pain in Assoc,pc M.D. left hip Hospitalists R26.2 Difficulty in walking, not elsewhere classified I48.91 Unspecified atrial fibrillation G89.29 Other chronic pain N18.9 Chronic kidney disease, unspecified Office Visit 03/08/2019 1:00p Wound Care Pérez Amado L97.821 Non-prs chr [facility] Kristen Payne. 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 I89.0 Lymphedema, not elsewhere classified I87.2 Venous insufficiency (chronic) (peripheral) L97.811 Non-prs [facility] ulcer oth prt r low leg limited to brkdwn skin Office Visit 02/08/2019 2:45p Orthopedic Kristin Reaves, S32.19xA Other fracture Services Of of sacrumderrick CAliceMAllan encntr for closed fracture M16.12 Unilateral primary osteoarthritis, left hip R93.7 Abnormal findings on diagnostic imaging of prt ms sys Office Visit 02/01/2019 [facility] Angelito Vigil I87.2 Venous 8:30a For Infectious Dino Anderson insufficiency Diseases (chronic) (peripheral) 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 and [place] Hospitalists unsp deep veins of low extrm, bi M84.48xA Pathological fracture, other site, init encntr for fracture M16.9 Osteoarthritis of hip, unspecified I48.2 Chronic atrial fibrillation D50.9 Iron deficiency anemia, unspecified D51.9 Vitamin B12 deficiency anemia, unspecified N18.9 Chronic kidney disease, unspecified I50.32 Chronic diastolic (congestive) heart failure Office Visit 11/18/2018 [facility] I82.402 Acute embolism 11:28a toya Pérez M.D. and [place] Hospitalists unsp deep veins of l low extrem M84.48xA Pathological fracture, other site, init encntr for fracture M79.606 Pain in leg, unspecified G89.29 Other chronic pain I48.91 Unspecified atrial fibrillation D64.9 Anemia, unspecified F41.9 Anxiety disorder, unspecified N18.9 Chronic kidney disease, unspecified Office 11/17/2018 [facility] M84.48xA Pathological Visit 11:28a toya Pérez M.D. fracture, other Hospitalists site, init encntr for fracture I82.402 Acute embolism and thombos unsp deep veins of l low extrem M79.606 Pain in leg, unspecified G89.29 Other chronic pain I48.91 Unspecified atrial fibrillation D64.9 Anemia, unspecified F41.9 Anxiety disorder, unspecified N18.9 Chronic kidney disease, unspecified I50.30 Unspecified diastolic (congestive) heart failure Office Visit 11/17/2018 1:21p Orthopedic Haydee M16.9 Osteoarthritis of [facility] [place] [place] hip, unspecified C.M.A. S32.19xA Other fracture of sacrum, init encntr for closed fracture Office Visit 11/16/2018 [facility] Glo Barton, M84.48xA Pathological 11:27a toya Pérez MD fracture, other Hospitalists site, init encntr for fracture I82.402 Acute embolism and thombos unsp deep veins of l low extrem D64.9 Anemia, unspecified I48.91 Unspecified atrial fibrillation N18.9 Chronic kidney disease, unspecified I50.30 Unspecified diastolic (congestive) heart failure R53.81 Other malaise J44.9 Chronic obstructive pulmonary disease, unspecified Office Visit 11/15/2018 [facility] Glo Barton, M84.48xA Pathological 11:27a toya Pérez MD fracture, other Hospitalists site, init encntr for fracture I82.402 Acute embolism and thombos unsp deep veins of l low extrem D64.9 Anemia, unspecified I48.91 Unspecified atrial fibrillation N18.9 Chronic kidney disease, unspecified I50.30 Unspecified diastolic (congestive) heart failure R53.81 Other malaise J44.9 Chronic obstructive pulmonary disease, unspecified Office Visit 11/14/2018 [facility] Glo Barton, M84.48xA Pathological 11:26a toya Pérez MD fracture, other Hospitalists site, init encntr for fracture I82.419 Acute embolism and thrombosis of unspecified femoral vein D64.9 Anemia, unspecified I48.91 Unspecified atrial fibrillation N18.9 Chronic kidney disease, unspecified I50.30 Unspecified diastolic (congestive) heart failure R53.81 Other malaise J44.9 Chronic obstructive pulmonary disease, unspecified Office Visit 11/13/2018 [facility] Glo Barton, M84.48xA Pathological 11:26a toya Pérez MD fracture, other Hospitalists site, init encntr for fracture I82.419 Acute embolism and thrombosis of unspecified femoral vein D64.9 Anemia, unspecified I48.91 Unspecified atrial fibrillation N18.9 Chronic kidney disease, unspecified I50.30 Unspecified diastolic (congestive) heart failure J44.9 Chronic obstructive pulmonary disease, unspecified Office Visit 11/12/2018 [facility] Bridger M80.08xA Age-rel osteopor 11:25a Asstoya enamorado PA w current path Hospitalists fracture, vertebra(e), init I82.409 Acute embolism and thombos unsp deep vn unsp lower extremity J96.11 Chronic respiratory failure with hypoxia J44.9 Chronic obstructive pulmonary disease, unspecified I48.91 Unspecified atrial fibrillation I50.30 Unspecified diastolic (congestive) heart failure N18.2 Chronic kidney disease, stage 2 (mild) 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 I48.2 Chronic atrial Foster, N.P. fibrillation I12.9 Hypertensive chronic kidney disease w stg 1-4/unsp chr kdny R94.31 Abnormal electrocardiogram [ECG] [EKG] I50.32 Chronic diastolic (congestive) heart failure R60.0 Localized edema N18.9 Chronic kidney disease, unspecified Office Visit 10/14/2018 1:30p Pulmonology And Edwina J44.9 Chronic Sleep Services Of MD Jaja obstructive Dependency Program Director pulmonary disease, unspecified J18.9 Pneumonia, unspecified organism Office Visit 10/11/2018 1:30p [facility] Nurse Visit I48.91 Unspecified atrial cc fibrillation I10 Essential (primary) hypertension Office Visit 10/04/2018 2:30p [facility] Noa S. I50.32 Chronic diastolic Foster, N.P. (congestive) heart failure I48.2 Chronic atrial fibrillation R60.0 Localized edema D64.9 Anemia, unspecified I34.0 Nonrheumatic mitral (valve) insufficiency Z79.01 [facility] (current) use of anticoagulants I48.91 Unspecified atrial fibrillation Assessments Date Code Description Provider 03/30/2019 M16.12 Unilateral primary osteoarthritis, Casey Acosta M.D. left hip 03/30/2019 S32.110D Nondisplaced Zone I fracture of Casey Acosta M.D. sacrum, subsequent encounter for fracture with routine healing 03/30/2019 M25.452 Effusion, left hip Casey Acosta M.D. 03/25/2019 M16.12 Unilateral primary osteoarthritis, Gilles Mccann M.D. left hip 03/25/2019 M89.9 Disorder of bone, unspecified Gilles Mccann M.D. 03/25/2019 I48.91 Unspecified atrial fibrillation Abhijit Velasquez.D. 03/25/2019 N18.9 Chronic kidney disease, unspecified Gilles Moussallem, M.D. 03/25/2019 J44.9 Chronic obstructive pulmonary Gilles Moyasallem, M.D. disease, unspecified 03/25/2019 I50.32 Chronic diastolic (congestive) heart Gilles Mccann M.D. failure 03/25/2019 E03.9 Hypothyroidism, unspecified Gilles Moussallem, M.D. 03/24/2019 M16.12 Unilateral primary osteoarthritis, Gilles Libbyallem, M.D. left hip 03/24/2019 M89.9 Disorder of bone, unspecified Gilles Bennyussallem, M.D. 03/24/2019 I48.91 Unspecified atrial fibrillation Gilles Mccann, M.D. 03/24/2019 N18.9 Chronic kidney disease, unspecified Gilles Moussallem, M.D. 03/24/2019 J44.9 Chronic obstructive pulmonary Gilles Libbyallem M.DAlice disease, unspecified 03/24/2019 I50.32 Chronic diastolic (congestive) heart Gilles Mccann M.D. failure 03/24/2019 I82.412 Acute embolism and thrombosis of Gilles Mccann M.D. left femoral vein 03/24/2019 E03.9 Hypothyroidism, unspecified Gilles Moussallem, M.D. 03/23/2019 M16.12 Unilateral primary osteoarthritis, Gilles Souzaallem, M.D. left hip 03/23/2019 M89.9 Disorder of bone, unspecified Gilles Moussallem, M.D. 03/23/2019 I48.91 Unspecified atrial fibrillation Gilles Souzaallem, M.D. 03/23/2019 N18.9 Chronic kidney disease, unspecified Gilles Bennyussallem, M.D. 03/23/2019 J44.9 Chronic obstructive pulmonary Gilles Moussallem, M.DAlice disease, unspecified 03/23/2019 I50.30 Unspecified diastolic (congestive) Gilles Mccann M.D. heart failure 03/23/2019 I82.491 Acute embolism and thrombosis of Gilles Moussallem, M.D. other specified deep vein of right lower extremity 03/23/2019 E03.9 Hypothyroidism, unspecified Gilles Mccann M.D. 03/22/2019 M25.552 Pain in left hip Lucero Cui, [employer] 03/22/2019 L97.821 Non-pressure chronic ulcer of other Evi Hayes, [employer] M[employer] part of left lower leg limited to breakdown of skin 03/22/2019 G89.29 Other chronic pain Lucero Cui, [employer] M[employer] TE[employer]ER 03/22/2019 L97.811 Non-pressure chronic ulcer of other Evi Hayes, [employer] M[employer] TE[employer] part of right lower leg limited to breakdown of skin 03/22/2019 M79.605 Pain in left leg Lucero Cui, [employer] M[employer] TE[employer]ER 03/22/2019 I89.0 Lymphedema, not elsewhere classified Evi Hayes, [employer] M[employer] TE[employer]ER 03/22/2019 I48.91 Unspecified atrial fibrillation Lucero Cui, [employer] M[employer] TE[employer]ER 03/22/2019 I87.2 Venous insufficiency (chronic) Evi Hayes, BUSINESS M[employer] TE[employer]ER (peripheral) 03/22/2019 D61.818 Other pancytopenia Lucero Cui, [employer] M[employer] TE[employer]ER 03/22/2019 N18.9 Chronic kidney disease, unspecified Lucero Cui, [employer] MACH[employer] TE[employer]ER 03/22/2019 J44.9 Chronic obstructive pulmonary Lucero Cui, BUSINESS MACH[employer] TE[employer]ER disease, unspecified 03/21/2019 M25.552 Pain in left hip Jena Huizar M.D. 03/21/2019 R26.2 Difficulty in walking, not elsewhere Jena Huizar M.D. classified 03/21/2019 I48.91 Unspecified atrial fibrillation Jena Huizar M.D. 03/21/2019 G89.29 Other chronic pain Jena Huizar M.D. 03/21/2019 N18.9 Chronic kidney disease, unspecified Jena Huizar M.D. 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 part of left lower leg limited to breakdown of skin 03/08/2019 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 Staphylococcus Pérez Payne M.D. aureus infection as the cause of diseases classified elsewhere 03/08/2019 I89.0 Lymphedema, not elsewhere classified Pérez Payne M.D. 03/08/2019 I87.2 Venous insufficiency (chronic) Pérez aPyne M.D. 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 Cecilia Damon DNP , RN, part of left lower leg limited to SIDE TRIMMER-BC breakdown of skin 02/11/2019 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 Staphylococcus Cecilia Damon DNP , RN, aureus infection as the cause of SIDE TRIMMER-BC diseases classified elsewhere 02/11/2019 I89.0 Lymphedema, not elsewhere classified Cecilia Damon DNP RN, SIDE TRIMMER-BC 02/11/2019 I87.2 Venous insufficiency (chronic) Cecilia Damon DNP RN, (peripheral) SIDE TRIMMER-BC 02/11/2019 L97.811 Non-pressure chronic ulcer of other Cecilia Damon DNP , RN, part of right lower leg limited to SIDE TRIMMER-BC breakdown of skin 02/08/2019 S32.19xA Other fracture of sacrum, initial Kristin Reaves MD encounter for closed fracture 02/08/2019 M16.12 Unilateral primary osteoarthritis, Kristin Reaves MD left hip 02/08/2019 R93.7 Abnormal findings on diagnostic Kristin Reaves MD imaging of other parts of musculoskeletal system 02/01/2019 I87.2 Venous insufficiency (chronic) Angelito Anderson M.D. (peripheral) 02/01/2019 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 Staphylococcus Angelito Anderson M.D. aureus infection as the 02/01/2019 L97.821 Non-pressure chronic ulcer of other Angelito Anderson M.D. 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 disease, unspecified 11/19/2018 I82.403 Acute embolism and thombos unsp deep Gilles Mccann M.D. veins of low extrm, bi 11/19/2018 M84.48xA Pathological fracture, other site, Gilles Mccann M.D. init encntr for fracture 11/19/2018 M16.9 Osteoarthritis of hip, unspecified Gilles Mccann M.D. 11/19/2018 I48.2 Chronic atrial fibrillation Gilles Mccann M.D. 11/19/2018 D50.9 Iron deficiency anemia, unspecified Gilles Mccann M.D. 11/19/2018 D51.9 Vitamin B12 deficiency anemia, Gilles Mccann M.D. unspecified 11/19/2018 N18.9 Chronic kidney disease, unspecified Gilles Mccann M.D. 11/19/2018 I50.32 Chronic diastolic (congestive) heart Gilles Mccann M.D. failure 11/18/2018 I82.402 Acute embolism and thombos unsp deep Gilles Mccann M.D. veins of l low extrem 11/18/2018 M84.48xA Pathological fracture, other site, Gilles Mccann M.D. init encntr for fracture 11/18/2018 M79.606 Pain in leg, unspecified Gilles Moussallem, M.D. 11/18/2018 G89.29 Other chronic pain Gilles Moussallem, M.D. 11/18/2018 I48.91 Unspecified atrial fibrillation Gilles Barringtonem M.DAlice 11/18/2018 D64.9 Anemia, unspecified Gilles Moussallem, M.D. 11/18/2018 F41.9 Anxiety disorder, unspecified Gilles Moussallem, M.D. 11/18/2018 N18.9 Chronic kidney disease, unspecified Gilles Moussallem, M.D. 11/17/2018 M16.9 Osteoarthritis of hip, unspecified NEFTALI Phillips 11/17/2018 M84.48xA Pathological fracture, other site, Gilles Mccann M.D. init encntr for fracture 11/17/2018 S32.19xA Other fracture of sacrum, init NEFTALI Phillips encntr for closed fracture 11/17/2018 I82.402 Acute embolism and thombos unsp deep Gilles Mccann M.D. veins of l low extrem 11/17/2018 M79.606 Pain in leg, unspecified Gilles Moussallem, M.D. 11/17/2018 G89.29 Other chronic pain Gilles Moussallem, M.D. 11/17/2018 I48.91 Unspecified atrial fibrillation Gilles Ferrisem, M.D. 11/17/2018 D64.9 Anemia, unspecified Gilles Moussallem, M.D. 11/17/2018 F41.9 Anxiety disorder, unspecified Gilles Moussallem, M.D. 11/17/2018 N18.9 Chronic kidney disease, unspecified Gilles Moussallem, M.D. 11/17/2018 I50.30 Unspecified diastolic (congestive) Gilles Mccann M.D. heart failure 11/16/2018 M84.48xA Pathological fracture, other site, Glo Barton MD init encntr for fracture 11/16/2018 I82.402 Acute embolism and thombos unsp deep Glo Barton MD veins of l low extrem 11/16/2018 D64.9 Anemia, unspecified Glo Barton MD 11/16/2018 I48.91 Unspecified atrial fibrillation Glo Barton MD 11/16/2018 N18.9 Chronic kidney disease, unspecified Glo Barton MD 11/16/2018 I50.30 Unspecified diastolic (congestive) Glo Barton MD heart failure 11/16/2018 R53.81 Other malaise Glo Barton MD 11/16/2018 J44.9 Chronic obstructive pulmonary Glo Barton MD disease, unspecified 11/15/2018 M84.48xA Pathological fracture, other site, Glo Barton MD init encntr for fracture 11/15/2018 I82.402 Acute embolism and thombos unsp deep Glo Barton MD veins of l low extrem 11/15/2018 D64.9 Anemia, unspecified Glo Barton MD 11/15/2018 I48.91 Unspecified atrial fibrillation Glo Barton MD 11/15/2018 N18.9 Chronic kidney disease, unspecified Glo Barton MD 11/15/2018 I50.30 Unspecified diastolic (congestive) Glo Barton MD heart failure 11/15/2018 R53.81 Other malaise Glo Barton MD 11/15/2018 J44.9 Chronic obstructive pulmonary Glo Barton MD disease, unspecified 11/14/2018 M84.48xA Pathological fracture, other site, Glo Barton MD init encntr for fracture 11/14/2018 I82.419 Acute embolism and thrombosis of Glo Barton MD unspecified femoral vein 11/14/2018 D64.9 Anemia, unspecified Glo Barton MD 11/14/2018 I48.91 Unspecified atrial fibrillation Glo Barton MD 11/14/2018 N18.9 Chronic kidney disease, unspecified Glo Barton MD 11/14/2018 I50.30 Unspecified diastolic (congestive) Glo Barton MD heart failure 11/14/2018 R53.81 Other malaise Glo Barton MD 11/14/2018 J44.9 Chronic obstructive pulmonary Glo Barton MD disease, unspecified 11/13/2018 M84.48xA Pathological fracture, other site, Glo Barton MD init encntr for fracture 11/13/2018 I82.419 Acute embolism and thrombosis of Glo Barton MD unspecified femoral vein 11/13/2018 D64.9 Anemia, unspecified Glo Barton MD 11/13/2018 I48.91 Unspecified atrial fibrillation Glo Barton MD 11/13/2018 N18.9 Chronic kidney disease, unspecified Glo Barton MD 11/13/2018 I50.30 Unspecified diastolic (congestive) Glo Barton MD heart failure 11/13/2018 J44.9 Chronic obstructive pulmonary Glo Barton MD disease, unspecified 11/12/2018 M80.08xA Age-rel osteopor w current path NEFTALI Richardson fracture, vertebra(e), init 11/12/2018 I82.409 Acute embolism and thombos unsp deep NEFTALI Richardson vn unsp lower extremity 11/12/2018 J96.11 Chronic respiratory failure with NEFTALI Richardson hypoxia 11/12/2018 J44.9 Chronic obstructive pulmonary NEFTALI Richardson disease, unspecified 11/12/2018 I48.91 Unspecified atrial fibrillation NEFTALI Richardson 11/12/2018 I50.30 Unspecified diastolic (congestive) NEFTALI Richardson heart failure 11/12/2018 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 11/08/2018 N18.9 Chronic kidney disease, unspecified Kylee Montes M.D. 11/08/2018 I12.9 Hypertensive chronic kidney disease Kylee Montes M.D. with stage 1 through sta 11/08/2018 R60.0 Localized edema Kylee Montes M.D. 11/08/2018 I34.0 Nonrheumatic mitral (valve) Kylee Montes M.D. insufficiency 11/08/2018 I50.32 Chronic diastolic (congestive) heart Kylee Montes M.D. failure 11/04/2018 I48.91 Unspecified atrial fibrillation Kylee Montes M.D. 11/01/2018 I48.91 Unspecified atrial fibrillation Kylee Montes M.D. 11/01/2018 I48.91 Unspecified atrial fibrillation Nurse Visit cc 10/18/2018 I48.2 Chronic atrial fibrillation Noa Michel, N.P. 10/18/2018 I12.9 Hypertensive chronic kidney disease Noa Michel, N.P. with stage 1 through sta 10/18/2018 R94.31 chronic kidney disease, or Noa Michel, N.P. unspecified chronic kidney diseas 10/18/2018 I50.32 Chronic diastolic (congestive) heart Noa Carson. Anand, N.P. failure 10/18/2018 R60.0 Localized edema Noa Michel, N.P. 10/18/2018 N18.9 Chronic kidney disease, unspecified Noa Michel, N.P. 10/14/2018 J44.9 Chronic obstructive pulmonary Edwina Wilkinson MD disease, unspecified 10/14/2018 J18.9 Pneumonia, unspecified organism Edwina Wilkinson MD 10/11/2018 I48.91 Unspecified atrial fibrillation Kylee Montes M.D. 10/11/2018 I48.91 Unspecified atrial fibrillation Nurse Visit cc 10/11/2018 I10 Essential (primary) hypertension Kylee Montes M.D. 10/11/2018 I10 Essential (primary) hypertension Nurse Visit cc 10/04/2018 R94.31 Abnormal electrocardiogram [ECG] Kylee Montes M.D. [EKG] 10/04/2018 I48.91 Unspecified atrial fibrillation Kylee Montes M.D. 10/04/2018 I50.32 Chronic diastolic (congestive) heart Noajohanna Michel, N.P. failure 10/04/2018 I48.2 Chronic atrial fibrillation Noa SAlice Michel, N.P. 10/04/2018 R60.0 Localized edema Noa Raul Michel, N.P. 10/04/2018 D64.9 Anemia, unspecified Noa S. Anand, N.P. 10/04/2018 I34.0 Nonrheumatic mitral (valve) Noa Raul Michel, N.P. 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 Plan of Treatment Future Appointment(s):05/02/2019 2:15 pm - Casey Acosta M.D. at [facility]05/16/2019 1:30 pm - Noa Michel N.P. at [facility]04/25/2019 1:45 pm - Edwina Wilkinson MD at [facility]03/30/2019 - Casey Acosta M.D.M16.12 Unilateral primary osteoarthritis, left hipFollow up:Follow up: 4-6 weeks Continue OOB to chair or wheel chair at the [facility]F Continue the bike pedallingfrom a chair Ambulate with a walker and assistance weight as able left if able Move the left hip, knee, ankle, foot and toes as ableS32.110D Nondisplaced Zone I fracture of sacrum, subsequent encounter for fracture with routine eduivbwB14.452 Effusion, left hip Functional Status Description No Information Available Mental Status Description No Information Available Referrals Refer to Dr Reason for Referral Status Appt Date Chloe Brownlee MD mass right pelvis Scheduled 02/10/2019 [address] [facility] [place], [place] [id number] [phone] Chloe Brownlee MD Sent [address] [facility] [address] [place], [place] [id number] [phone]
--- OUTSIDE RECORDS SUMMARY | 2019-05-03 11:11 | XMS REPORT | Continuity of Care Document ---
:1930 External Reference #:[id number] Author Name Casey Acosta M.D. (transmitted by agent of provider Neelima Cherry) Address [address] [place] [id number] Care Team Providers Name Role Phone Jose Thompson MD - Family Care Team Information Sock Folder [phone] Medicine Problems Active Problems Provider Date Dyspnea [...] Edwina Wilkinson MD Onset: 10/03/2016 Hypoxemia Edwina Wilkinson MD Onset: 11/04/2016 Heart failure, unspecified Darrell [...] cigarettes/day) not smoke when Smoking Status Reviewed: 05/02/19 Light tobacco smoker 2 Packs/week for (10 [...] Torres, 05/31/2018 20mg Tablets alternating with 2 DESIGN INSERTER tablets by mouth daily Duoneb 1 inhalation three Qutaybeh S. 02/19/2018 Inhaler times daily as Dino Montes needed Oxygen please use o2 at 1units R09.02 Cuca 05/11/2017 Misc 2.5l/min at night RADHA Rucker and 2ml/min with exertion. pls provide pt with portable o2 concentrator Miralax 17 gm qd prn 1Mon Other Ordering 09/29/2012 [id number] Packet Provider Simethicone 1 tab every 6 hours Unknown 80mg Chewtabs as needed bloating Trazodone HCL 1/2 by mouth as Unknown 50mg needed Tablets Risedronate Sodium take 1 tablet by 4tabs Unknown 35mg mouth every week. Tablets Acetaminophen 2 every 4 hours as Unknown 325mg needed for pain Tablets Polyvinyl Alcohol Unknown 1.4% Solution Calcium 500+D 1 by mouth every Unknown day [id number] Tablets Cyclobenzaprine HCL 1 by mouth at [...] every 6 hours as Tablets needed pain Proventil HFA 2 puffs every 4 Unknown 108(90Base) hours as needed mcg/Act Aerosol Amitiza 1 by mouth twice a Unknown 24mcg Capsules day Lorazepam as needed Unknown 0.5mg Tablets Ranitidine HCL take one tablet by Unknown 150mg mouth daily Tablets Symbicort 2 puffs twice a day Unknown [...] 30tabs Unknown 2.5mg by family med Tablets Medications Administered in Office Medication SIG Qnty Indications Ordering Provider Date Depomedrol 40MG Cuca Chauhan M.D. 12/06/2015 Injection Depomedrol 80MG Jake Lindsay M.D. 01/21/2013 Injection Immunizations CPT Code Status Date Vaccine Lot # [id number] Given 06/15/2017 Influenza Virus Vaccine, Quadrivalent, Split, [id number] Preservative Free Vital Signs Date Vital Result Comment 05/02/2019 2:13pm Height 64 inches 5'4" Weight 164.00 lb Heart Rate 58 /min BP Systolic 120 mmHg BP Diastolic 58 mmHg Respiratory Rate 16 /min Body Temperature 97.8 F Pain Level 6 BMI (Body Mass Index) 28.1 kg/m2 03/30/2019 11:39am Height 64 inches 5'4" Weight 150.00 lb Heart Rate 56 /min BP Systolic 120 mmHg BP Diastolic 70 mmHg Respiratory Rate 16 /min Body Temperature 98.8 F Pain Level 6 BMI (Body Mass Index) 25.7 kg/m2 Results Test Date Facility Test Result H/L Range Note Hemoglobin/Hemat 11/22/2018 [facility] Hemoglobin 8.7 g/dL Low 12.0-16.0 1 [address] [place] [address] [phone] Hematocrit 28 % Low 35-47 Inr/Protime 11/22/2018 [facility] Inr 1.39 High 0.82-1.09 2 [place] [address] [phone] Basic Metabolic 11/22/2018 [facility] Sodium 144 mmol/L Normal 135-145 [place] [address] [phone] Potassium 3.7 mmol/L Normal 3.5-5.0 Chloride 105 mmol/L Normal 101-111 Co2 Carbon Dioxide 32 mmol/L Normal 22-32 Anion Gap 7 mmol/L Normal 2-11 Glucose 84 mg/dL Normal 70-100 Blood Urea Nitrogen 37 mg/dL High 6-24 Creatinine 1.08 mg/dL High 0.51-0.95 BUN/Creatinine Ratio 34.3 High 8-20 Calcium 8.4 mg/dL Low 8.6-10.3 Egfr Non- 47.9 >60 Egfr 57.9 >60 3 Basic Metabolic 11/02/2018 [facility] Sodium 143 mmol/L Normal 135-145 [place] [address] [phone] Potassium 4.5 mmol/L Normal 3.5-5.0 Chloride 105 mmol/L Normal 101-111 Co2 Carbon Dioxide 32 mmol/L Normal 22-32 Anion Gap 6 mmol/L Normal 2-11 Glucose 71 mg/dL Normal 70-100 Blood Urea Nitrogen 37 mg/dL High 6-24 Creatinine 1.19 mg/dL High 0.51-0.95 BUN/Creatinine Ratio 31.1 High 8-20 Calcium 8.6 mg/dL Normal 8.6-10.3 Egfr Non- 42.8 >60 Egfr 51.8 >60 4 Laboratory test 11/02/2018 [facility] Magnesium 2.2 mg/dL Normal 1.9-2.[address] [place] [address] [phone] [facility] [address], Room Number 116W [id number] Standard intensity warfarin therapeutic range: 2.0-3.0 [...] (or dialysis) Procedures Date Code Description Status 05/02/2019 00449 Inject/Drain Joint/Bursa Intermediate W/O US Completed 03/18/2019 40131 Removal Devitalization Tissue Wound Less Than Equal 20 Completed Square CM 11/04/2018 36995 Holter Monitor Review (24 hr) review & interp only Completed 11/01/2018 73130 ECG Monitor/Recording W/Visual Superimposition Scanning Completed 11/01/2018 52804 ECG Monitor/Recording W/Visual Superimposition Scanning Completed 08/22/2016 [id number] Mammogram Completed Medical Devices Description No Information Available Encounters Type Date Location Provider Dx Diagnosis Office Visit 04/20/2019 Kathy Delarosa Melanie Polk, I89.0 Lymphedema, not 8:45a D.O. elsewhere classified M16.12 Unilateral primary osteoarthritis, left hip I48.91 Unspecified atrial fibrillation I50.32 Chronic diastolic (congestive) heart failure J44.9 Chronic obstructive pulmonary disease, unspecified N18.9 Chronic kidney disease, unspecified Z66 Do not resuscitate Office Visit 04/01/2019 9:45a [facility] [place] Reyesosbaldo Polk, L97.821 Non- prs chr D.O. ulcer oth prt l low leg limited to brkdwn skin I89.0 Lymphedema, not elsewhere classified M16.12 Unilateral primary osteoarthritis, left hip I48.91 Unspecified atrial fibrillation I50.32 Chronic diastolic (congestive) heart failure J44.9 Chronic obstructive pulmonary disease, unspecified N18.9 Chronic kidney disease, unspecified Z66 Do not resuscitate Office Visit 04/01/2019 1:00p Wound Care Cecilia Damon L97.821 Non- prs chr [place] [facility] [place], RN, ELDERLY SITTER-BC ulcer oth prt l low leg limited to brkdwn skin I89.0 Lymphedema, not elsewhere classified I87.2 Venous insufficiency (chronic) (peripheral) R09.89 Oth symptoms and signs involving the circ and resp systems S81.802D Unspecified open wound, left lower leg, subsequent encounter Office Visit 03/30/2019 Kathy Victorhetal Acosta, M16.12 Unilateral primary 11:00a [facility] [place], left Leary hip S32.110D Nondisp Zone I fracture of sacrum, subs for fx w routn [facility] M25.452 Effusion, left hip Office 03/25/2019 [facility] M16.12 Unilateral primary Visit 10:14a toya Pérez M.D. osteoarthritis, Hospitalists left hip M89.9 Disorder of bone, unspecified Office 03/24/2019 [facility] M16.12 Unilateral primary Visit 10:13a toya Pérez M.D. osteoarthritis, Hospitalists left hip M89.9 Disorder of bone, unspecified I48.91 Unspecified atrial fibrillation N18.9 Chronic kidney disease, unspecified J44.9 Chronic obstructive pulmonary disease, unspecified I50.32 Chronic diastolic (congestive) heart failure Office Visit 03/23/2019 [facility] Haydee M16.12 Unilateral primary 10:01a at [facility] [place] osteoarthritis, left hip Office Visit 03/23/2019 [facility] M16.12 Unilateral primary 10:13a toya Pérez, osteoarthritis, left Hospitalists Dino hip M89.9 Disorder of bone, unspecified I48.91 Unspecified atrial fibrillation J44.9 Chronic obstructive pulmonary disease, unspecified Office Visit 03/22/2019 [facility] M16.12 Unilateral primary 10:00a [facility] [place] osteoarthritis, left Leary hip Office Visit 03/22/2019 [facility] Lucero M25.552 Pain in left hip 10:12a Asstoya enamorado [facility] Hospitalists RADHA Cui M79.605 Pain in left leg R26.2 Difficulty in walking, not elsewhere classified J44.9 Chronic obstructive pulmonary disease, unspecified Office Visit 03/22/2019 8:00a Wound Care Evi Justin L97.821 Non- prs chr Center [place] [facility] RADHA Hayes ulcer oth prt l low leg limited to brkdwn skin L97.811 Non-prs chr ulcer oth prt r low leg limited to brkdwn skin I89.0 Lymphedema, not elsewhere classified I87.2 Venous insufficiency (chronic) (peripheral) Office Visit 03/21/2019 10:12a [facility] Jena Huizar, M25.552 Pain in Assoc,pc M.D. 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 I89.0 Lymphedema, not elsewhere classified I87.2 Venous insufficiency (chronic) (peripheral) Office Visit 02/11/2019 12:45p Wound Care Cecilia Damon L97.821 Non- prs [facility] Center AT [facility] VI[place]KA, RN, ELDERLY SITTER-BC 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 I89.0 Lymphedema, not elsewhere classified I87.2 Venous insufficiency (chronic) (peripheral) L97.811 Non-prs [facility] ulcer oth prt r low leg limited to brkdwn skin Office Visit 02/08/2019 2:45p [facility] Kristin Reaves, S32.19xA Other fracture at [place] of sacrum, init encntr for closed fracture M16.12 Unilateral primary osteoarthritis, left hip R93.7 Abnormal findings on diagnostic imaging of prt ms sys Office Visit 02/01/2019 [facility] Angelito Vigil I87.2 Venous 8:30a For Infectious Dino nAderson insufficiency Diseases (chronic) (peripheral) 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 L97.821 Non-prs [facility] ulcer oth prt l low leg limited to brkdwn skin Office Visit 11/23/2018 8:15a [facility] Melanie Polk, M25.552 Pain in left D.O. 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 and [facility] Hospitalists unsp deep veins of low extrm, bi M84.48xA Pathological fracture, other site, init encntr for fracture M16.9 Osteoarthritis of hip, unspecified I48.2 Chronic atrial fibrillation D50.9 Iron deficiency anemia, unspecified D51.9 Vitamin B12 deficiency anemia, unspecified N18.9 Chronic kidney disease, unspecified I50.32 Chronic diastolic (congestive) heart failure Office Visit 11/18/2018 [facility] I82.402 Acute embolism 11:28a toya Pérez M.D. and [facility] Hospitalists unsp deep veins of l low extrem M84.48xA Pathological fracture, other site, init encntr for fracture M79.606 Pain in leg, unspecified G89.29 Other chronic pain I48.91 Unspecified atrial fibrillation D64.9 Anemia, unspecified F41.9 Anxiety disorder, unspecified N18.9 Chronic kidney disease, unspecified Office Visit 11/17/2018 [facility] Haydee M16.9 Osteoarthritis of 1:21p Orthopedics at [facility] [place] hip, unspecified Leary S32.19xA Other fracture of sacrum, init encntr for closed fracture Office 11/17/2018 [facility] M84.48xA Pathological Visit 11:28a toya Pérez M.D. fracture, other Hospitalists site, init encntr for fracture I82.402 Acute embolism and thombos unsp deep veins of l low extrem M79.606 Pain in leg, unspecified G89.29 Other chronic pain I48.91 Unspecified atrial fibrillation D64.9 Anemia, unspecified F41.9 Anxiety disorder, unspecified N18.9 Chronic kidney disease, unspecified I50.30 Unspecified diastolic (congestive) heart failure Office Visit 11/16/2018 [facility] Glo Dill, M84.48xA Pathological 11:27a Asstoya enamorado MD fracture, other Hospitalists site, init encntr for fracture I82.402 Acute embolism and thombos unsp deep veins of l low extrem D64.9 Anemia, unspecified I48.91 Unspecified atrial fibrillation N18.9 Chronic kidney disease, unspecified I50.30 Unspecified diastolic (congestive) heart failure R53.81 Other malaise J44.9 Chronic obstructive pulmonary disease, unspecified Office Visit 11/15/2018 [facility] Glo Barton, M84.48xA Pathological 11:27a toya Pérez MD fracture, other Hospitalists site, init encntr for fracture I82.402 Acute embolism and thombos unsp deep veins of l low extrem D64.9 Anemia, unspecified I48.91 Unspecified atrial fibrillation N18.9 Chronic kidney disease, unspecified I50.30 Unspecified diastolic (congestive) heart failure R53.81 Other malaise J44.9 Chronic obstructive pulmonary disease, unspecified Office Visit 11/14/2018 [facility] Glo Barton, M84.48xA Pathological 11:26a toya Pérze MD fracture, other Hospitalists site, init encntr for fracture I82.419 Acute embolism and thrombosis of unspecified femoral vein D64.9 Anemia, unspecified I48.91 Unspecified atrial fibrillation N18.9 Chronic kidney disease, unspecified I50.30 Unspecified diastolic (congestive) heart failure R53.81 Other malaise J44.9 Chronic obstructive pulmonary disease, unspecified Office Visit 11/13/2018 [facility] Glo Barton, M84.48xA Pathological 11:26a toya Pérez MD fracture, other Hospitalists site, init encntr for fracture I82.419 Acute embolism and thrombosis of unspecified femoral vein D64.9 Anemia, unspecified I48.91 Unspecified atrial fibrillation N18.9 Chronic kidney disease, unspecified I50.30 Unspecified diastolic (congestive) heart failure J44.9 Chronic obstructive pulmonary disease, unspecified Office Visit 11/12/2018 [facility] Bridger M80.08xA Age-rel osteopor 11:25a toya Pérez PA w current path Hospitalists fracture, vertebra(e), [...] stg 5 chr kdny/Esrd Office Visit 11/08/2018 Kathy Carter I48.2 Chronic atrial 2:40p Cardiology Dino Montes fibrillation N18.9 Chronic kidney disease, unspecified I12.9 Hypertensive chronic kidney disease w stg 1-4/unsp chr kdny R60.0 Localized edema I34.0 Nonrheumatic mitral (valve) insufficiency I50.32 Chronic diastolic (congestive) heart failure Assessments Date Code Description Provider 05/02/2019 M16.12 Unilateral primary osteoarthritis, Casey Acosta M.D. left hip 05/02/2019 M70.21 Olecranon bursitis, right elbow Casey Acosta M.D. 04/21/2019 R06.02 Shortness of breath Chloe Lundy, RADHA 04/20/2019 I89.0 Lymphedema, not elsewhere Melanie Polk D.O. classified 04/20/2019 M16.12 Unilateral primary osteoarthritis, Yaritza LimO. left hip 04/20/2019 I48.91 Unspecified atrial fibrillation Melanie Polk D.O. 04/20/2019 I50.32 Chronic diastolic (congestive) Yaritza LimOAlice heart failure 04/20/2019 J44.9 Chronic obstructive pulmonary Melanie Polk D.O. disease, unspecified 04/20/2019 N18.9 Chronic kidney disease, unspecified Melanie Polk D.O. 04/20/2019 Z66 Do not resuscitate Harpreet Lim.O. 04/15/2019 L03.115 Cellulitis of right lower limb Chloe Lundy, DESIGN INSERTER 04/15/2019 L03.116 Cellulitis of left lower limb Chloe Lundy, DESIGN INSERTER 04/01/2019 L97.821 Non-pressure chronic ulcer of other Harpreet Lim.Danilo. part of left lower leg limited to breakdown of skin 04/01/2019 I89.0 Lymphedema, not elsewhere Melanie Polk D.O. classified 04/01/2019 L97.821 Non-pressure chronic ulcer of other Cecilia Damon DNP RN, part of left lower leg limited to [facility]- breakdown of skin 04/01/2019 M16.12 Unilateral primary osteoarthritis, Melanie Polk D.O. left hip 04/01/2019 I48.91 Unspecified atrial fibrillation Melanie Polk D.O. 04/01/2019 I89.0 Lymphedema, not elsewhere Cecilia Damon DNP RN, classified [facility]- 04/01/2019 I50.32 Chronic diastolic (congestive) Melanie Polk D.O. heart failure 04/01/2019 J44.9 Chronic obstructive pulmonary Melanie Polk D.O. disease, unspecified 04/01/2019 I87.2 Venous insufficiency (chronic) Cecilia Damon DNP, RN, (peripheral) [facility]- 04/01/2019 N18.9 Chronic kidney disease, unspecified Harpreet Lim.OAlice 04/01/2019 Z66 Do not resuscitate Melanie Polk D.O. 04/01/2019 R09.89 Other specified symptoms and signs Cecilia Damon DNP RN, involving the circulatory and [facility]- respiratory systems 04/01/2019 S81.802D Unspecified open wound, left lower Cecilia Damon DNP , RN, leg, subsequent encounter [facility] 03/30/2019 M16.12 Unilateral primary osteoarthritis, Casey Acosta M.D. left hip 03/30/2019 S32.110D Nondisplaced Zone I fracture of Casey Acosta M.D. sacrum, subsequent encounter for fracture with routine healing 03/30/2019 M25.452 Effusion, left hip Casey Acosta M.D. 03/25/2019 M16.12 Unilateral primary osteoarthritis, Gilles Mccann M.D. left hip 03/25/2019 M89.9 Disorder of bone, unspecified Gilles Mccann M.D. 03/24/2019 M16.12 Unilateral primary osteoarthritis, Gilles Mccann M.D. left hip 03/24/2019 M89.9 Disorder of bone, unspecified Gilles Mccann M.D. 03/24/2019 I48.91 Unspecified atrial fibrillation Gilles Mccann M.D. 03/24/2019 N18.9 Chronic kidney disease, unspecified Gilles Mccann M.D. 03/24/2019 J44.9 Chronic obstructive pulmonary Gilles Mccann M.D. disease, unspecified 03/24/2019 I50.32 Chronic diastolic (congestive) Gilles Mccann M.D. heart failure 03/23/2019 M16.12 Unilateral primary osteoarthritis, NEFTALI Phillips left hip 03/23/2019 M16.12 Unilateral primary osteoarthritis, Gilles Mccann M.D. left hip 03/23/2019 M89.9 Disorder of bone, unspecified Gilles Mccann M.D. 03/23/2019 I48.91 Unspecified atrial fibrillation Gilles Mccann M.D. 03/23/2019 J44.9 Chronic obstructive pulmonary Gilles Mccann M.D. disease, unspecified 03/22/2019 M16.12 Unilateral primary osteoarthritis, NEFTALI Phillips left hip 03/22/2019 M25.552 Pain in left hip Lucero Cui NP 03/22/2019 M79.605 Pain in left leg Lucero Cui NP 03/22/2019 R26.2 Difficulty in walking, not Lucero Cui NP elsewhere classified 03/22/2019 L97.821 Non-pressure chronic ulcer of other Evi Hayes NP part of left lower leg limited to breakdown of skin 03/22/2019 J44.9 Chronic obstructive pulmonary Lucero Cui NP disease, unspecified 03/22/2019 L97.811 Non-pressure chronic ulcer of other Evi Hayes NP part of right lower leg limited to breakdown of skin 03/22/2019 I89.0 Lymphedema, not elsewhere Evi Hayes NP classified 03/22/2019 I87.2 Venous insufficiency (chronic) Evi Hayes NP (peripheral) 03/21/2019 M25.552 Pain in left hip Jena Huizar M.D. 03/21/2019 R26.2 Difficulty in walking, not Jena Gaye, M.D. elsewhere classified 03/21/2019 I48.91 Unspecified atrial fibrillation Jena Huizar M.D. 03/21/2019 G89.29 Other chronic pain Jena Huizar M.D. 03/21/2019 N18.9 Chronic kidney disease, unspecified Jena Huizar M.D. 03/18/2019 L97.821 Non-pressure chronic ulcer of other Cecilia Damon DNP , GUILLE, part of left lower leg limited to ELDERLY SITTER-BC breakdown of skin 03/18/2019 L97.811 Non-pressure chronic ulcer of other Cecilia Damon DNP, RN, part of right lower leg limited to ELDERLY SITTER-BC breakdown of skin 03/08/2019 L97.821 Non-pressure chronic ulcer of other Pérez Payne M.D. part of left lower leg limited to breakdown of skin 03/08/2019 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 Pérez Payne M.D. Staphylococcus aureus infection as the cause of diseases classified elsewhere 03/08/2019 I89.0 Lymphedema, not elsewhere Pérez Payne M.D. classified 03/08/2019 I87.2 Venous insufficiency (chronic) Pérez Payne M.D. 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 Cecilia Damon DNP, RN, part of left lower leg limited to ELDERLY SITTER-BC breakdown of skin 02/11/2019 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 Cecilia Damon DNP, RN, Staphylococcus aureus infection as ELDERLY SITTER-BC the cause of diseases classified elsewhere 02/11/2019 I89.0 Lymphedema, not elsewhere Cecilia Damon DNP, RN, classified ELDERLY SITTER-BC 02/11/2019 I87.2 Venous insufficiency (chronic) Cecilia Damon DNP, RN, (peripheral) ELDERLY SITTER-BC 02/11/2019 L97.811 Non-pressure chronic ulcer of other Cecilia Damon DNP, RN, part of right lower leg limited to ELDERLY SITTER-BC breakdown of skin 02/08/2019 S32.19xA Other fracture of sacrum, initial Kristin Reaves MD encounter for closed fracture 02/08/2019 M16.12 Unilateral primary osteoarthritis, Kristin Reaves MD left hip 02/08/2019 R93.7 Abnormal findings on diagnostic Kristin Reaves MD imaging of other parts of musculoskeletal system 02/01/2019 I87.2 Venous insufficiency (chronic) Angelito Anderson M.D. (peripheral) 02/01/2019 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 Angelito Anderson M.D. Staphylococcus aureus infection as the 02/01/2019 L97.821 Non-pressure chronic ulcer of other Angelito Anderson M.D. part of left lower leg l 12/07/2018 S32.19xA Other fracture of sacrum, initial Shoshana Miranda DO encounter for closed fract 12/07/2018 G89.4 Chronic pain syndrome Shoshana Miranda DO 12/07/2018 I48.2 Chronic atrial fibrillation Shoshana Miranda DO 12/07/2018 J44.9 Chronic obstructive pulmonary Shoshana Miranda DO disease, unspecified 12/07/2018 F41.9 Anxiety disorder, unspecified Shoshana Miranda, 12/07/2018 Z79.01 long term care social worker (current) use of Shoshana Miranda DO anticoagulants 11/23/2018 M25.552 Pain in left hip Melanie Polk D.O. 11/23/2018 G89.4 Chronic pain syndrome Melanie Polk D.O. 11/23/2018 I48.2 Chronic atrial fibrillation Melanie Polk D.O. 11/23/2018 N18.9 Chronic kidney disease, unspecified Melanie Polk D.O. 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 and stg 1-4/unsp chr kdny 11/23/2018 I50.32 Chronic diastolic (congestive) Melanie Polk D.O. heart failure 11/23/2018 J44.9 Chronic obstructive pulmonary Melanie Polk D.O. disease, unspecified 11/19/2018 I82.403 Acute embolism and thombos unsp Gilles Mccann M.D. deep veins of low extrm, bi 11/19/2018 M84.48xA [...] Mccann M.D. 11/19/2018 I50.32 Chronic diastolic (congestive) Gilles Mccann M.D. heart failure 11/18/2018 I82.402 Acute embolism and thombos unsp Gilles Mccann M.D. deep veins of l low extrem 11/18/2018 M84.48xA Pathological fracture, other site, Gilles Mccann M.D. init encntr for fracture 11/18/2018 M79.606 Pain in leg, unspecified Gilles Mccann M.D. 11/18/2018 G89.29 Other chronic pain Gilles Mccann M.D. 11/18/2018 I48.91 Unspecified atrial fibrillation Gilles Mccann M.D. 11/18/2018 D64.9 Anemia, unspecified Gilles Mccann M.D. 11/18/2018 F41.9 Anxiety disorder, unspecified Gilles Mccann M.D. 11/18/2018 N18.9 Chronic kidney disease, unspecified Gilles Mccann M.D. 11/17/2018 M16.9 Osteoarthritis of hip, unspecified NEFTALI Phillips 11/17/2018 M84.48xA Pathological fracture, other site, Gilles Mccann M.D. init encntr for fracture 11/17/2018 S32.19xA Other fracture of sacrum, init NEFTALI Phillips encntr for closed fracture 11/17/2018 I82.402 Acute embolism and thombos unsp Gilles Mccann M.D. deep veins of l low extrem 11/17/2018 M79.606 Pain in leg, unspecified Gilles Mccann M.D. 11/17/2018 G89.29 Other chronic pain Gilles Mccann M.D. 11/17/2018 I48.91 Unspecified atrial fibrillation Gilles Mccann M.D. 11/17/2018 D64.9 Anemia, unspecified Gilles LibbyallDino barney 11/17/2018 F41.9 Anxiety disorder, unspecified Gilles Mccann M.D. 11/17/2018 N18.9 Chronic kidney disease, unspecified Gilles BennyussallemDino 11/17/2018 I50.30 Unspecified diastolic (congestive) Gilles Mccann M.D. heart failure 11/16/2018 M84.48xA Pathological fracture, other site, Glo Barton MD init encntr for fracture 11/16/2018 I82.402 Acute embolism and thombos unsp Glo Barton MD deep veins of l low extrem 11/16/2018 D64.9 [...] 11/15/2018 I82.402 Acute embolism and thombos unsp Glo Barton MD deep veins of l low extrem 11/15/2018 D64.9 [...] 11/12/2018 I82.409 Acute embolism and [facility] unsp NEFTALI Richardson deep vn unsp lower extremity 11/12/2018 J96.11 Chronic [...] M.D. insufficiency 11/08/2018 I50.32 Chronic diastolic (congestive) Kylee Montes M.D. heart failure 11/04/2018 I48.91 Unspecified atrial fibrillation Kylee Montes M.D. 11/01/2018 I48.91 Unspecified atrial fibrillation Kylee Montes M.D. 11/01/2018 I48.91 Unspecified atrial fibrillation Nurse Visit cc Plan of Treatment Future Appointment(s):08/03/2019 10:30 am - Casey Acosta M.D. at [facility]06/08/2019 10:45 am - Edwina Wilkinson MD at [facility]05/16/2019 1:30 pm - Noa Michel N[facility]icePAlice at [facility]/21/2019 - Casey Acosta M.D.M16.12 Unilateral primary osteoarthritis , left hipNew Xrays:Hip Left 2 Views And Pelvis [id number] - [id number], Ordered: Follow up:Follow up: Dr. Petersen 3-4 months Be as active as able with walker and [id number] Olecranon bursitis, right elbowFollow up:The bandage right elbow can be removed 05/04, please wash with soap and water. This was a left elbow hematoma and followup is not needed. Functional Status Description No Information Available Mental Status Description No Information Available Referrals Refer to Reason for Referral Status Appt Date Chloe Brownlee MD mass right pelvis Scheduled 02/10/2019 [address] [place], [place] [id number] [phone] Chloe Brownlee MD Sent 03/30/2019 [address] [place], [place] [id number] [phone]
[2019-05-03] MEDS ORDERED: Acetaminophen TAB* 325 MG PO ONE (11:25)
[2019-05-03] MEDS ORDERED: oxyCODONE/Acetamin 10/325(NF) TAB PO ONE (11:30)
[2019-05-03] MEDS ORDERED: oxyCODONE/Acetamin 5/325 MG* TAB PO ONE (11:40)
[2019-05-03] MEDS ORDERED: Albuterol/Ipratropium NEB.SOL* Albuterol 2.5 MG/Ipratropium 0.5 MG 3 ML INH ONE (13:49)
[2019-05-03 14:23] VITALS: BP 104/70
== END 2019-05-03 14:21 | disposition home or self-care (01) ==
LOC: ED 09:45
DX: R07.9 Chest pain, unspecified (principal); M54.9 Dorsalgia, unspecified; R06.02 Shortness of breath; R05 Cough; Z79.01 Long term (current) use of anticoagulants; I25.10 Atherosclerotic heart disease of native coronary artery without angina pectoris; I50.9 Heart failure, unspecified
CPT/HCPCS: 36415; 71046; 80053; 83880; 84484; 85025; 85379; 85610; 93005; 99284; A9270-GY

== ENCOUNTER 2019-08-16 23:42 | Inpatient (IN) | payer MEDICARE, BC ==
--- NOTE | 2019-08-17 00:05 | ED ---
Lower Extremity - HPI Summary HPI Summary: 89 year old F brought in by EMS to [facility] from home complains of worsening pain, swelling, and erythema in bilateral lower extremities and pain in her toes since Thursday08/14/2019. Patient states she could barely ambulate today 08/16/2019. Hx peripheral neuropathy in bilateral lower extremities. Patient reports shortness of breath. No fever or decreased appetite. The patient rates the pain 9/10 in severity. Symptoms aggravated by nothing. Symptoms alleviated by nothing. Pelvis fx in fall 2018 after which patient was staying at [facility] for some time and eventually discharged home. PMHx reviewed. Medications reviewed. Allergies noted. - History of Current Complaint Chief Complaint: EDWeakness Stated Complaint: GENERAL PAIN PER EMS Time Seen by Provider: 08/16/19 23:53 Hx Obtained From: Patient Onset of Pain: Days - 08/14/2019 Onset/Duration: Still Present Severity Currently: Severe Pain Intensity: 9 Pain Scale Used: 0-10 Numeric Timing: Constant Aggravating Factor(s): Nothing Alleviating Factor(s): Nothing - Allergies/Home Medications Allergies/Adverse Reactions: Allergies Allergy/AdvReac Type Severity Reaction Status Date / Time fentanyl Allergy Unknown Difficulty Verified 08/10/19 15:48 Breathing sulfamethoxazole AdvReac Intermediate Nausea Verified 08/10/19 15:48 [From Bactrim] trimethoprim [From Bactrim] AdvReac Intermediate Nausea Verified 08/10/19 15:48 ciprofloxacin AdvReac Hives Verified 08/10/19 15:48 codeine AdvReac Hives Verified 08/10/19 15:48 Penicillins AdvReac Hives Verified 08/10/19 15:48 PMH/Surg Hx/FS Hx/Imm Hx Endocrine/Hematology History: Reports: Hx Anticoagulant Therapy - coumadin for a fib, Hx Blood Disorders - chronic thrombocytopenia, Hx Thyroid Disease - juwan, Hx Anemia Denies: Hx Diabetes Cardiovascular History: Reports: Hx Angina, Hx Congestive Heart Failure, Hx Coronary Artery Disease, Hx Deep 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 PT WITH TB 1994 Denies: Hx Lung Cancer, Hx Pulmonary Embolism GI History: Reports: Hx Gall Bladder Disease - cholecystectomy 1976, Hx Gastroesophageal Reflux Disease - CONTROL WITH MED, Hx Ulcer, Other GI Disorders - partial gastrectomy 1972 Denies: Hx Gastrointestinal Bleed, Hx Urosepsis History: Reports: Hx Chronic Renal Failure, Other Problems/Disorders - hysterectomy Denies: Hx Acute Renal Failure, Hx Benign Prostatic Hyperplasia, Hx Kidney Stones, Hx Renal Disease Musculoskeletal History: Reports: Hx Arthritis - BACK, KNEES, Hx Back Problems - lumbar laminectomy 1995, Hx Orthopedic Injury - hx r arm, r ankle, toes, Hx of Fracture(s) - pelvis, Other Musculoskeletal History - back surgery 1995 Sensory History: Reports: Hx Cataracts - removed, Hx Contacts or Glasses - reading glasses Denies: Hx Eye Injury, Hx Eye Prosthesis, Hx Glaucoma, Hx Macular Degeneration, Hx Deafness, Hx Hearing Aid, Hx Hearing Problem, Other Sensory Impairments Opthamlomology History: Reports: Hx Cataracts - removed, Hx Contacts or Glasses - reading glasses Denies: Hx Eye Injury, Hx Eye Prosthesis, Hx Glaucoma, Hx Macular Degeneration, Other Sensory Impairments Neurological History: Reports: Other Neuro Impairments/Disorders - PERIPHERAL NEUROPATHY BILAT Denies: Hx Dementia, Hx Developmental Delay, Hx Migraine, Hx Seizures, Hx Transient Ischemic Attacks (TIA) Psychiatric History: Reports: Hx Anxiety - CONTROL WITH MED, Hx Depression - CONTROL WITH MED Denies: Hx Panic Disorder, Hx Schizophrenia, Hx Bipolar Disorder, Hx Suicide Attempt, Hx of Violent Episodes Against Others - Cancer History Cancer Type, Location and Year: breast lumpectomy was benign Hx Chemotherapy: No Hx Radiation Therapy: No - Surgical History Surgery Procedure, Year, and Place: T&A A CHILD. groin abscess A CHILD. appendectomy, cholecystectomy, [facility]. hysterectomy partial, [facility]. thyroidectomy partial, [facility]. L breast and R lung biopsies, [facility]. 1995 laminectomy L4,5, [facility]. gastrectomy partial 1972 r/t hemmorhaging ulcer;. Carpal Tunnel Surgery Right Wrist by Dr. Chauhan in July 2015. BILAT CATARACTS, [facility]. right lymph node bx 1994, [facility]. left leg surgery- vein [facility] [place] (NO STENTS). Left Breast lumpect[place], [facility] [place] Hx Anesthesia Reactions: No - Immunization History Date of Tetanus Vaccine: 2013 Date of Influenza Vaccine: Fall 2012 Infectious Disease History: No Infectious Disease History: Reports: Hx Tuberculosis, History Other Infectious Disease - hx e-coli sepsis and pneumonia February 2017 Denies: Hx Clostridium Difficile, Hx Hepatitis, Hx Human Immunodeficiency Virus (HIV), Hx of Known/Suspected MRSA, Hx Known/Suspected VRE, Hx Known/ Suspected VRSA, Traveled Outside the [place] in Last 30 Days - Family History Known Family History: Positive: Cardiac Disease - father - CHF, brother - aneurysm Negative: Hypertension, Diabetes - Social History Alcohol Use: Rare Alcohol Amount: 2 drinks per week Hx Substance Use: Yes Substance Use Type: Reports: Prescribed Substance Use Comment - Amount & Last Used: oxycodone and oxymorphone Hx Tobacco Use: Yes Smoking Status (MU): Former Smoker Type: Cigarettes Amount Used/How Often: 2 packs per week Length of Time of Smoking/Using Tobacco: ON AND OFF 45 YRS Have You Smoked in the Last Year: No Review of Systems Negative: Fever Positive: Shortness Of Breath Gastrointestinal: Negative - decreased appetite Positive: Other - pain and swelling in bilateral lower extremities and pain in her toes Positive: Other - erythema in bilateral lower extremities All Other Systems Reviewed And Are Negative: Yes Physical Exam - Summary Physical Exam Summary: Appearance: Frail appearing elderly woman in no acute distress Skin: Warm, dry, no obvious rash Eyes: sclera anicteric, no conjunctival pallor ENT: mucous membranes moist, pharynx appears normal Neck: Supple, nontender Respiratory: Clear to auscultation, no signs of respiratory distress Cardiovascular: Normal S1, S2. No murmurs. Normal distal pulses in tibial and radial bilaterally. Abdomen: Soft, nontender, normal active bowel sounds present Musculoskeletal: Prominent arthritic deformities of her hands. Lower extremities show acute swelling, erythema, warmth in the lower leg from just below knee to the ankle bilaterally. There is no lymphangitic streaking. Neurological: A&Ox3, awake and alert, mentation is normal, speech is fluent and appropriate Psychiatric: affect is normal, does not appear anxious or depressed Triage Information Reviewed: Yes Vital Signs On Initial Exam: Initial Vitals Temp Pulse Resp BP Pulse Ox 97.8 F 75 19 140/78 99 08/16/19 23:49 08/16/19 23:49 08/16/19 23:49 08/16/19 23:49 08/16/19 23:49 Vital Signs Reviewed: Yes Procedures - Sedation Patient Received Moderate/Deep Sedation with Procedure: No Diagnostics - Vital Signs Vital Signs Temp Pulse Resp BP Pulse Ox 08/16/19 23:49 97.8 F 75 19 140/78 99 - Laboratory Result Diagrams: 08/17/19 01:11 08/17/19 01:11 Lab Statement: Any lab studies that have been ordered have been reviewed, and results considered in the medical decision making process. - Radiology CXR Radiology Interpretation Completed By: ED Physician Summary of Radiographic Findings: NO ACUTE PROCESS. PENDING OFFICIAL REPORT Lower Extremity Course/Dx - Course Course Of Treatment: 89 y/o F brought in by EMS from home complains of worsening pain, swelling, and erythema in bilateral lower extremities, pain in her toes, shortness of breath since Thursday08/14/2019. Patient states she could barely ambulate today 08/16/2019. Hx peripheral neuropathy in bilateral lower extremities. PMHx reviewed. Medications reviewed. Allergies noted. Upon exam, the patient is a frail appearing elderly woman in no acute distress. Prominent arthritic deformities of her hands. Lower extremities show acute swelling, erythema, warmth in the lower leg from just below knee to the ankle bilaterally. There is no lymphangitic streaking. Bloodwork results with no significant abnormalities except for iRBC 3.63, Hgb 11.5, MCV 98, MCH 32, platelets 140, carbon dioxide 35, BUN 44, creatinine 1.36, BUN/creatinine 32.4, glucose 105, alkaline phosphatase 108, CRP 12.13. CXR shows no acute process. In the ED course, the patient was given Tylenol and Keflex. Patient will be discharged home with prescription for Keflex and follow up from Dr. Thompson. Patient was instructed to return to Emergency Department for new or worsening symptoms. Patient understands and is agreeable to this plan. - Diagnoses Provider Diagnoses: Cellulitis Discharge ED - Sign-Out/Discharge Documenting (check all that apply): Patient Departure - Discharge Plan Condition: Good Disposition: HOME Prescriptions: Cephalexin CAP* [Keflex CAP*] 500 mg PO QID #28 cap Patient Education Materials: Cellulitis (ED) Referrals: Jose Thompson MD [Primary Care Provider] - 3 Days (if not improving) Additional Instructions: It looks like you are developing some infection in the skin of your lower legs. I have prescribed an antibiotic for this that should bring it under control over the next 2-3 days. - Billing Disposition and Condition Condition: GOOD Disposition: Home - Attestation Statements Document Initiated by Susan: Yes Documenting Scribe: Sherita Valdes Provider For Whom Susan is Documenting (Include Credential): Richard Rico MD Scribe Attestation: I, Sherita Valdes, scribed for Richard Rico MD on 08/17/19 at 0542. Scribe Documentation Reviewed: Yes Provider Attestation: The documentation as recorded by the Sherita lynne accurately reflects the service I personally performed and the decisions made by me, Richard Rico MD Status of Scribe Document: Viewed
--- OUTSIDE RECORDS SUMMARY | 2019-08-17 00:21 | XMS REPORT | Continuity of Care Document ---
:1930 External Reference #:[id number] Author Name Casey Acosta M.D. 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 Onset: 2018 Ulcer of lower extremity Hugo Snyder M.D. Onset: 06/29/2019 Cellulitis of right lower limb Hugo Snyder M.D. Onset: 06/29/2019 Cellulitis of left lower limb Hugo Snyder M.D. Onset: 06/29/2019 Social History Type Date Description Comments Sex Unknown Tobacco Use Start: Unknown Quit in 1988 ETOH Use Denies alcohol use Tobacco Use Start: Unknown End: Patient is a former Unknown smoker Recreational Drug Use Never Used Drugs Tobacco Use Start: Unknown Light tobacco smoker 2 Packs/week for (10 or fewer several years, did cigarettes/day) not smoke when Smoking Status Reviewed: 08/03/19 Light tobacco smoker 2 Packs/week for (10 or fewer several years, did cigarettes/day) not smoke when Exercise Type/Frequency Exercises sporadically Allergies, Adverse Reactions, Alerts Active Allergies Reaction Severity Comments Date Cipro 08/14/2009 Duragesic 08/14/2009 Penicillin 08/14/2009 Bactrim nausea 01/30/2012 Codeine 03/07/2014 Fentanyl 12/12/2014 Medications Active Medications SIG Qnty Indications Ordering Date Provider Acidophilus 1 by mouth every Unknown 07/19/2019 Capsules day Lidoderm 1 apply to affected Unknown 07/19/2019 5% Patches area 12 hours on, 12 hours off Calcium + D3 1 by mouth daily Unknown 07/19/2019 [id number] Tablets Spironolactone 1 tablet by mouth 45tabs Noa Michel, 10/12/2018 25mg every day N.P. Tablets Torsemide 2 tablets by mouth 60tabs I50.32 Mirela James, 05/31/2018 20mg Tablets daily MD [place] 1 inhalation three Qutaybeh S. 02/19/2018 Inhaler times daily as Dino Montes needed Oxygen please use o2 at 1units R09.02 Cuca 05/11/2017 Misc 2.5l/min at night RADHA Rucker and 2ml/min with exertion. pls provide pt with portable o2 concentrator Miralax 17 gm qd prn 1Mon Other Ordering 09/29/2012 [id number] Packet Provider Trazodone HCL 1 by mouth as Unknown 50mg needed at bedtime Tablets for sleep Risedronate Sodium take 1 tablet by 4tabs Unknown 35mg mouth every week. Tablets Acetaminophen 2 every 4 hours as Unknown 325mg needed for pain Tablets Polyvinyl Alcohol Unknown 1.4% Solution Cyclobenzaprine HCL 1 by mouth twice a Unknown 5mg day as needed for Tablets back pain Eucerin Plus Unknown 2.5-10% Cream Ferrous Sulfate 1 by mouth every Unknown 325(65Fe) day mg Tablets Magox 400 take one tablet by Unknown 400(241.3mg) mg mouth once a day Tablets Oxycodone HCL 1 tab by mouth Unknown 15mg every 6 hours as Tablets needed pain Proventil HFA 2 puffs every 4 Unknown 108(90Base) hours as needed mcg/Act Aerosol Simethicone 1 tab every 6 hours Unknown 80mg Chewtabs as needed bloating Amitiza 1 by mouth twice a Unknown 24mcg Capsules day Lorazepam as needed Unknown 0.5mg Tablets Ranitidine HCL take one tablet by Unknown 150mg mouth daily Tablets Symbicort 2 puffs twice a day Unknown Aerosol rinse mouth after using Metoprolol Succinate 1 tab PO daily Unknown ER 25mg Tablets ER 24HR Levothyroxine Sodium 1/2 po qd Am 90tabs Unknown 25mcg Tablets Lyrica 1 capsule by mouth Unknown 50mg Capsules two times a day taken with each meal Xopenex HFA 1 puff qid prn 1Mon Unknown 45mcg/Act Aerosol Spiriva Handihaler 1 inhalation qam 3caps Unknown 18mcg Capsules Warfarin Sodium as directed managed 30tabs Unknown 2.5mg by family med Tablets Medications Administered in Office Medication SIG Qnty Indications Ordering Provider Date No Injection Ahsan Petersen MD 05/02/2019 Injection Depomedrol 40MG Ahsan Petersen MD 05/02/2019 Injection Depomedrol 40MG Cuca Gandara M.D. 12/06/2015 Injection Depomedrol 80MG Jake Lindsay M.D. 01/21/2013 Injection Immunizations CPT Code Status Date Vaccine Lot # [id number] Given 06/15/2017 Influenza Virus Vaccine, Quadrivalent, Split, [id number] Preservative Free Vital Signs Date Vital Result Comment 08/03/2019 3:41pm Height 64 inches 5'4" Heart Rate 73 /min BP Systolic 110 mmHg BP Diastolic 58 mmHg Respiratory Rate 14 /min Body Temperature 96.8 F Pain Level 8 07/20/2019 11:15am Height 64 inches 5'4" Weight 149.25 lb per pt, at home today Heart Rate 66 /min radial,regular BP Systolic Sitting 102 mmHg Ra, reg cuff BP Diastolic Sitting 42 mmHg Ra, reg cuff BMI (Body Mass Index) 25.6 kg/m2 Ejection Fraction 50%-55% echo 07/18/18 Results Test Acquired Date Facility Test Result H/L Range Note Basic Metabolic 06/21/2019 [facility] Sodium 139 mmol/L Normal 135-[address] [place] [address] [phone] Potassium 4.2 mmol/L Normal 3.5-5.0 Chloride 98 mmol/L Low 101-111 Co2 Carbon Dioxide 32 mmol/L Normal 22-32 Anion Gap 9 mmol/L Normal 2-11 Glucose 103 mg/dL High 70-100 Blood Urea Nitrogen 59 mg/dL High 6-24 Creatinine 1.51 mg/dL High 0.51-0.95 BUN/Creatinine Ratio 39.1 High 8-20 Calcium 8.7 mg/dL Normal 8.6-10.3 Egfr Non- 32.4 >60 Egfr 39.3 >60 1 CBC No Diff 06/21/2019 [facility] White Blood 5.5 10^3/uL Normal 3.5-10.[address] [place] [address] [phone] Red Blood Count 3.74 10^6/uL Normal 3.70-4.87 Hemoglobin 11.8 g/dL Low 12.0-16.0 Hematocrit 37 % Normal 35-47 Mean Corpuscular Volume 98 fL High 80-97 Mean Corpuscular Hemoglobin 32 pg High 27-31 Mean Corpuscular HGB Conc 32 g/dL Normal 31-36 Red Cell Distribution Width 16 % High 10-15 Platelet Count 160 10^3/uL Normal 150-450 Mean Platelet Volume 8.8 fL Normal 7.4-10.4 Xray 05/02/2019 [facility] In House Inj/Aspir Major JT Or Bursa W/ US <pending> 1 Because ethnic data is not always readily [...] dialysis) Procedures Date Code Description Status 05/02/2019 Inj/Aspir Major JT Or Bursa W/ US Completed 05/02/2019 41243 Inject/Drain Joint/Bursa Intermediate W/O US Completed 03/18/2019 63005 Removal Devitalization Tissue Wound Less Than Equal 20 Completed Square CM 08/22/2016 [id number] Mammogram Completed Medical Devices Description No Information Available Encounters Type Date Location Provider Dx Diagnosis Office Visit 08/03/2019 [facility] Casey Acosta M.D. 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 disease, stage 3 (moderate) R60.0 Localized edema I48.20 Chronic atrial fibrillation, unspecified I50.32 Chronic diastolic (congestive) heart failure Office Visit 06/29/2019 10:30a Chad Marcelo R22.42 Localized Medicine Of Sandro Snyder M.D. swelling, mass and lump, left lower limb R22.41 Localized swelling, mass and lump, right lower limb L03.115 Cellulitis of right lower limb L03.116 Cellulitis of left lower limb L97.811 Non-prs chr ulcer oth prt r low leg limited to brkdwn skin Office Visit 06/21/2019 2:00p [facility] Nephrology Mirela James, I12.9 Hypertensive chronic kidney disease w stg 1-4/unsp chr kdny N18.3 Chronic kidney disease, stage 3 (moderate) R60.0 Localized edema Office Visit 06/08/2019 10:45a [facility] [place] J44.9 Chronic [facility] Jaja obstructive Coagulation Operator pulmonary disease, unspecified R09.02 Hypoxemia Office Visit 05/02/2019 [facility] Casey Acosta, M16.12 Unilateral primary 2:15p Orthopedics at .. osteoarthritis, left [place] hip S50.01xA Contusion of right elbow, initial encounter M70.21 Olecranon bursitis, right elbow Office Visit 04/21/2019 9:30a [facility] Chloe Lundy, R06.02 Shortness of ELECTRONIC PARTS DESIGNER breath Office Visit 04/20/2019 8:45a [facility] Melanie Polk, I89.0 Lymphedema, not D.O. elsewhere classified M16.12 Unilateral primary osteoarthritis, left hip I48.91 Unspecified atrial fibrillation I50.32 Chronic diastolic (congestive) heart failure J44.9 Chronic obstructive pulmonary disease, unspecified N18.9 Chronic kidney disease, unspecified Z66 Do not resuscitate Office Visit 04/15/2019 8:30a [facility] Chloe Lundy, L03.115 Cellulitis of ELECTRONIC PARTS DESIGNER right lower limb L03.116 Cellulitis of left lower limb Office Visit 04/01/2019 9:45a [facility] Melanie Polk, L97.821 Non- prs chr D.O. ulcer oth prt l low leg limited to brkdwn skin I89.0 Lymphedema, not elsewhere classified M16.12 Unilateral primary osteoarthritis, left hip I48.91 Unspecified atrial fibrillation I50.32 Chronic diastolic (congestive) heart failure J44.9 Chronic obstructive pulmonary disease, unspecified N18.9 Chronic kidney disease, unspecified Z66 Do not resuscitate Office Visit 04/01/2019 1:00p Wound Care Cecilia Damon, L97.821 Non- prs [facility] [place] VIELKA, RN, CASHIER RECEPTIONIST-BC ulcer oth prt l low leg limited to brkdwn skin I89.0 Lymphedema, not elsewhere classified I87.2 Venous insufficiency (chronic) (peripheral) R09.89 Oth symptoms and signs involving the circ and resp systems S81.802D Unspecified open wound, left lower leg, subsequent encounter Office Visit 03/30/2019 [facility] Casey Acosta, M16.12 Unilateral primary 11:00a Orthopedics at [place] osteoarthritis, left [place] hip S32.110D [place] I fracture of sacrum, subs for fx w routn heal M25.452 Effusion, left hip Office 03/25/2019 [facility] M16.12 Unilateral primary Visit 10:14a toya Pérez M.D. osteoarthritis, Hospitalists left hip M89.9 Disorder of bone, unspecified Office 03/24/2019 [facility] M16.12 Unilateral primary Visit 10:13a toya Pérez M.D. osteoarthritis, Hospitalists left hip M89.9 Disorder of bone, unspecified I48.91 Unspecified atrial fibrillation N18.9 Chronic kidney disease, unspecified J44.9 Chronic obstructive pulmonary disease, unspecified I50.32 Chronic diastolic (congestive) heart failure Office 03/23/2019 [facility] M16.12 Unilateral primary Visit 10:13a toya Pérez M.D. osteoarthritis, Hospitalists left hip M89.9 Disorder of bone, unspecified I48.91 Unspecified atrial fibrillation J44.9 Chronic obstructive pulmonary disease, unspecified Office Visit 03/23/2019 [facility] M16.12 Unilateral primary 10:01a Orthopedics at [place] osteoarthritis, left [place] hip Office Visit 03/22/2019 [facility] M16.12 Unilateral primary 10:00a Orthopedics at [place] osteoarthritis, left [place] hip Office Visit 03/22/2019 [facility] M25.552 Pain in left hip 10:12a [facility] C[facility] M79.605 Pain in left leg R26.2 Difficulty in walking, not elsewhere classified J44.9 Chronic obstructive pulmonary disease, unspecified Office Visit 03/22/2019 8:00a Wound Care Evi Justin L97.821 Non- prs [facility] Center AT [facility] [place] RADHA Hayes ulcer oth prt l low leg limited to brkdwn skin L97.811 Non-prs chr ulcer oth prt r low leg limited to brkdwn skin I89.0 Lymphedema, not elsewhere classified I87.2 Venous insufficiency (chronic) (peripheral) Office Visit 03/21/2019 10:12a [facility] Jena Huizar, M25.552 Pain in Assoc,pc M.D. 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 I89.0 Lymphedema, not elsewhere classified I87.2 Venous insufficiency (chronic) (peripheral) Office Visit 02/11/2019 12:45p Wound Care Cecilia Damon L97.821 Non- prs [facility] Center AT [facility] [place] VIELKA, RN, CASHIER RECEPTIONIST-BC 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 left hip 07/20/2019 N18.3 Chronic kidney disease, stage 3 Noa Michel, N.P. (moderate) 07/20/2019 R60.0 Localized edema Noa Michel, N.P. 07/20/2019 I48.20 Chronic atrial fibrillation, Noa Michel, N.P. unspecified 07/20/2019 I50.32 Chronic diastolic (congestive) Noa Michel, N.P. heart failure 06/29/2019 R22.42 Localized swelling, mass and lump, Hugo Snyder M.D. left lower limb 06/29/2019 R22.41 Localized swelling, mass and lump, Hugo Snyder M.D. right lower limb 06/29/2019 L03.115 Cellulitis of right lower limb Hugo Snyder M.D. 06/29/2019 L03.116 Cellulitis of left lower limb Hugo Snyder M.D. 06/29/2019 L97.811 Non-pressure chronic ulcer of other Hugo Snyder M.D. part of right lower leg limited to breakdown of skin 06/21/2019 I12.9 Hypertensive chronic kidney disease Mirela James MD with stage 1 through stage 4 chronic kidney disease, or unspecified chronic kidney disease 06/21/2019 N18.3 Chronic kidney disease, stage 3 Mirela James MD (moderate) 06/21/2019 R60.0 Localized edema Mirela James MD 06/08/2019 J44.9 Chronic obstructive pulmonary Edwina Wilkinson MD disease, unspecified 06/08/2019 R09.02 Hypoxemia Edwina Wilkinson MD 05/06/2019 M16.12 Unilateral primary osteoarthritis, Melanie Polk D.O. left hip 05/06/2019 I89.0 Lymphedema, not elsewhere Melanie Polk D.O. classified 05/06/2019 I48.91 Unspecified atrial fibrillation Melanie Polk D.O. 05/06/2019 I50.32 Chronic diastolic (congestive) Melanie Polk D.O. heart failure 05/06/2019 J44.9 Chronic obstructive pulmonary Harpreet Lim.O. disease, unspecified 05/06/2019 Z66 Do not resuscitate Harpreet Lim.O. 05/02/2019 M16.12 Unilateral primary osteoarthritis, Ahsan Petersen MD left hip 05/02/2019 M16.12 Unilateral primary osteoarthritis, Casey Acosta M.D. left hip 05/02/2019 S50.01xA Contusion of right elbow, initial Casey Acosta M.D. encounter 05/02/2019 M25.552 Pain in left hip Ahsan Petersen MD 05/02/2019 M70.21 Olecranon bursitis, right elbow Casey Acosta M.D. 04/21/2019 R06.02 Shortness of breath Chloe Lundy, ELECTRONIC PARTS DESIGNER 04/20/2019 I89.0 Lymphedema, not elsewhere Melanie Polk D.O. classified 04/20/2019 M16.12 Unilateral primary osteoarthritis, Harpreet Lim.O. left hip 04/20/2019 I48.91 Unspecified atrial fibrillation Melanie Polk D.O. 04/20/2019 I50.32 Chronic diastolic (congestive) Harpreet Lim.O. heart failure 04/20/2019 J44.9 Chronic obstructive pulmonary Melanie Polk D.O. disease, unspecified 04/20/2019 N18.9 Chronic kidney disease, unspecified Melanie Polk D.O. 04/20/2019 Z66 Do not resuscitate Harpreet Lim.O. 04/15/2019 L03.115 Cellulitis of right lower limb Chloe Lundy, ELECTRONIC PARTS DESIGNER 04/15/2019 L03.116 Cellulitis of left lower limb Chloe Lundy, ELECTRONIC PARTS DESIGNER 04/01/2019 L97.821 Non-pressure chronic ulcer of other Melanie Polk D.O. part of left lower leg limited to breakdown of skin 04/01/2019 I89.0 Lymphedema, not elsewhere Melanie Polk D.O. classified 04/01/2019 L97.821 Non-pressure chronic ulcer of other Cecilia Damon, VIELKA , RN, part of left lower leg limited to CASHIER RECEPTIONIST-BC breakdown of skin 04/01/2019 M16.12 Unilateral primary osteoarthritis, Melanie Polk D.O. left hip 04/01/2019 I48.91 Unspecified atrial fibrillation Melanie Polk D.O. 04/01/2019 I89.0 Lymphedema, not elsewhere Cecilia Damon DNP, RN, classified [facility] 04/01/2019 I50.32 Chronic diastolic (congestive) Melanie Polk D.O. heart failure 04/01/2019 J44.9 Chronic obstructive pulmonary Melanie Polk D.O. disease, unspecified 04/01/2019 I87.2 Venous insufficiency (chronic) Cecilia Damon DNP, RN, (peripheral) [facility] 04/01/2019 N18.9 Chronic kidney disease, unspecified Melanie Polk D.O. 04/01/2019 Z66 Do not resuscitate Melanie Polk D.O. 04/01/2019 R09.89 Other specified symptoms and signs Cecilia Damon DNP RN, involving the circulatory and [facility] respiratory systems 04/01/2019 S81.802D Unspecified open wound, left lower Cecilia Damon DNP , RN, leg, subsequent encounter [facility] 03/30/2019 M16.12 Unilateral primary osteoarthritis, Casey [...] heart failure 03/23/2019 M16.12 Unilateral primary osteoarthritis, Haydee Marley, PA left hip 03/23/2019 M16.12 Unilateral primary osteoarthritis, Gilles Mccann M.D. left hip 03/23/2019 M89.9 Disorder of bone, unspecified Gilles Mccann M.D. 03/23/2019 I48.91 Unspecified atrial fibrillation Gilles Mccann M.D. 03/23/2019 J44.9 Chronic obstructive pulmonary Gilles Mccann M.D. disease, unspecified 03/22/2019 M16.12 Unilateral primary osteoarthritis, Haydee Marley, PA left hip 03/22/2019 M25.552 Pain in left [...] 03/21/2019 R26.2 Difficulty in walking, not Jena Huizar M.D. elsewhere classified 03/21/2019 I48.91 Unspecified atrial fibrillation Jena Huizar M.D. 03/21/2019 G89.29 Other chronic pain Jena Huizar M.D. 03/21/2019 N18.9 Chronic kidney disease, unspecified Jena Huizar M.D. 03/18/2019 L97.821 Non-pressure chronic ulcer of other Cecilia Damon DNP , RN, part of left lower leg limited to CASHIER RECEPTIONIST-BC breakdown of skin 03/08/2019 L97.821 Non-pressure chronic [...] part of left lower leg limited to CASHIER RECEPTIONIST-BC breakdown of skin 02/11/2019 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 Cecilia Damon DNP RN, Staphylococcus aureus infection as CASHIER RECEPTIONIST-BC the cause of diseases classified elsewhere 02/11/2019 I89.0 Lymphedema, not elsewhere Cecilia Damon DNP RN, classified CASHIER RECEPTIONIST-BC 02/11/2019 I87.2 Venous insufficiency (chronic) Cecilia Damon DNP, RN, (peripheral) CASHIER RECEPTIONIST-BC 02/11/2019 L97.811 Non-pressure chronic ulcer of other Cecilia Damon DNP , RN, part of right lower leg limited to CASHIER RECEPTIONIST-BC breakdown of skin 02/08/2019 S32.19xA Other fracture [...] M.D. part of left lower leg l Plan of Treatment Future Appointment(s):09/01/2019 3:00 pm - Ahsan Petersen MD at [facility] at [place]08/22/2019 2:00 pm - [place] [facility] Schedule at [facility]iptv30/10/2020 2:00 pm - Mirela James MD at [facility] Bytqryxene07/26/2020 2: 00 pm - Cuca Rucker NP at [facility]2019 - Casey Acosta M.D.M16.12 Unilateral primary osteoarthritis, left hipFollow up:Follow up: As needed Another left hip injection can be done by Dr. Petersen or Erick Functional Status Description No Information Available Mental Status Description No Information Available Referrals Refer to Dr Reason for Referral Status Appt Date Physical [facility] [place] [facility] [address] [facility] [place] [address] [place] [address] [phone] Chloe Brownlee MD mass right pelvis Scheduled 02/10/2019 [address] [facility] [place], [place] [id number] [phone]
--- OUTSIDE RECORDS SUMMARY | 2019-08-17 00:21 | XMS REPORT | Continuity of Care Document ---
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 [phone] Medicine Problems Active Problems Provider Date Dyspnea [...] cigarettes/day) not smoke when Smoking Status Reviewed: 06/21/19 Light tobacco smoker 2 Packs/week for (10 or fewer several years, did cigarettes/day) not smoke when Exercise Type/Frequency Exercises sporadically Allergies, Adverse Reactions, Alerts Active Allergies Reaction Severity Comments Date Cipro 08/14/2009 Duragesic 08/14/2009 Penicillin 08/14/2009 Bactrim nausea 01/30/2012 Codeine 03/07/2014 Fentanyl 12/12/2014 Medications Active Medications SIG Qnty Indications Ordering Date Provider Spironolactone 1 tablet by mouth 45tabs Noa [...] Ordering 09/29/2012 3350NF Packet Provider Trazodone HCL 1/2 by mouth as Unknown 50mg needed Tablets Risedronate Sodium take 1 tablet by 4tabs Unknown 35mg mouth every week. Tablets Acetaminophen 2 every 4 hours as Unknown 325mg needed for pain Tablets Polyvinyl Alcohol Unknown 1.4% Solution Calcium 500+D 1 by mouth every Unknown day [id number] Tablets Cyclobenzaprine HCL 1 by mouth at Unknown 5mg bedtime as needed Tablets for back pain Eucerin Plus Unknown 2.5-10% Cream Ferrous Sulfate 1 by mouth every Unknown 325(65Fe) day mg Tablets Glycolax Unknown 3350NF Powder Magox 400 take one half Unknown 400(241.3mg) [...] 2 by mouth daily Unknown 800mg Tablets Xopenex HFA 1 puff qid prn 1Mon Unknown 45mcg/Act Aerosol Spiriva Handihaler 1 inhalation qam 3caps Unknown 18mcg Capsules Calcium 1 po qd Am 60caps Unknown 500mg Capsules Warfarin Sodium as directed managed 30tabs Unknown 2.5mg by family med Tablets History Medications Clindamycin HCL 1 po q 8 hrs 40caps Unknown 01/31/2019 - 06/21/2019 300mg Capsules Medications Administered in Office Medication SIG Qnty Indications Ordering Provider Date No Injection Ahsan Petersen MD 05/02/2019 Injection Depomedrol 40MG Ahsan Petersen MD 05/02/2019 Injection Depomedrol 40MG Cuca Chauhan M.D. 12/06/2015 Injection Depomedrol 80MG Jake Lindsay M.D. 01/21/2013 Injection Immunizations CPT Code Status Date Vaccine Lot # [id number] Given 06/15/2017 Influenza Virus Vaccine, Quadrivalent, Split, [id number] Preservative Free Vital Signs Date Vital Result Comment 06/21/2019 1:55pm Height 64 inches 5'4" Weight 152.00 lb Heart Rate 63 /min BP Systolic Sitting 100 mmHg right arm reg cuff BP Diastolic Sitting 52 mmHg right arm reg cuff O2 % BldC Oximetry 91 % room air BMI (Body Mass Index) 26.1 kg/m2 06/08/2019 10:37am Height 64 inches 5'4" Weight 152.00 lb Heart Rate 100 /min BP Systolic Sitting 120 mmHg Lue regular cuff BP Diastolic Sitting 66 mmHg Lue regular cuff Respiratory Rate 20 /min O2 % BldC Oximetry 92 % BMI (Body Mass Index) 26.1 kg/m2 Results Test Acquired Date Facility Test Result H/L Range Note Xray 05/02/2019 [facility] Inj/Aspir Major JT Or Bursa <pending> W/ US Procedures Date Code Description Status 05/02/2019 Inj/Aspir Major JT Or Bursa W/ US Completed 05/02/2019 50046 Inject/Drain Joint/Bursa Intermediate W/O US Completed 03/18/2019 02890 Removal Devitalization Tissue Wound Less Than Equal 20 Completed Square CM 08/22/2016 [id number] Mammogram Completed Medical Devices Description No Information Available Encounters Type Date Location Provider Dx Diagnosis Office Visit 06/08/2019 [facility] Edwina Wilkinson, J44.9 Chronic obstructive 10:45a [facility] Of pulmonary diseaseSandro unspecified R09.02 Hypoxemia Office Visit 05/02/2019 Kathy Acosta, M16.12 Unilateral primary 2:15p [facility]oped[facility] at [facility] osteoarthritis, left [place] hip S50.01xA Contusion of right elbow, initial encounter M70.21 Olecranon bursitis, right elbow Office Visit 04/20/2019 8:45a Kathy Polk, I89.0 Lymphedema, not D.O. elsewhere classified M16.12 Unilateral primary osteoarthritis, left hip I48.91 Unspecified atrial fibrillation I50.32 Chronic diastolic (congestive) heart failure J44.9 Chronic obstructive pulmonary disease, unspecified N18.9 Chronic kidney disease, unspecified Z66 Do not resuscitate Office Visit 04/01/2019 9:45a Kathy Polk, L97.821 Non- prs chr D.O. ulcer oth prt l low leg limited to brkdwn skin I89.0 Lymphedema, not elsewhere classified M16.12 Unilateral primary osteoarthritis, left hip I48.91 Unspecified atrial fibrillation I50.32 Chronic diastolic (congestive) heart failure J44.9 Chronic obstructive pulmonary disease, unspecified N18.9 Chronic kidney disease, unspecified Z66 Do not resuscitate Office Visit 04/01/2019 1:00p Wound Care Cecilia Damon, L97.821 Non- prs chr Center AT [facility] DNP, RN, FIRE MANAGER-BC ulcer oth prt l low leg limited to brkdwn skin I89.0 Lymphedema, not elsewhere classified I87.2 Venous insufficiency (chronic) (peripheral) R09.89 Ot symptoms and signs involving the circ and resp systems S81.802D Unspecified open wound, left lower leg, subsequent encounter Office Visit 03/30/2019 [place] [facility] [place], M16.12 Unilateral primary 11:00a Orthopedics at [place] osteoarthritis, left [place] hip S32.110D Nondisp Zone I fracture of sacrum, subs for fx w routn heal M25.452 Effusion, left hip Office 03/25/2019 [facility] M16.12 Unilateral primary Visit 10:14a toya Péerz M.D. osteoarthritis, Hospitalists left hip M89.9 Disorder of bone, unspecified Office 03/24/2019 [facility] M16.12 Unilateral primary Visit 10:13a toya Pérez M.D. osteoarthritis, Hospitalists left hip M89.9 Disorder of bone, unspecified I48.91 Unspecified atrial fibrillation N18.9 Chronic kidney disease, unspecified J44.9 Chronic obstructive pulmonary disease, unspecified I50.32 Chronic diastolic (congestive) heart failure Office 03/23/2019 [facility] M16.12 Unilateral primary Visit 10:13a toya Pérez M.D. osteoarthritis, Hospitalists left hip M89.9 Disorder of bone, unspecified I48.91 Unspecified atrial fibrillation J44.9 Chronic obstructive pulmonary disease, unspecified Office Visit 03/23/2019 [place] [facility] [place] M16.12 Unilateral primary 10:01a Orthopedics at [facility] Marley osteoarthritis, left [place] hip Office Visit 03/22/2019 [facility] [place] M16.12 Unilateral primary 10:00a Orthopedics at [place], [place] osteoarthritis, left [place] hip Office Visit 03/22/2019 [facility] Lucero M25.552 Pain in left hip 10:12a [facility] Hospitalists RADHA Cui M79.605 Pain in left leg R26.2 Difficulty in walking, not elsewhere classified J44.9 Chronic obstructive pulmonary disease, unspecified Office Visit 03/22/2019 8:00a Wound Care Evi Justin L97.821 Non- prs chr Center AT [facility] RADHA Haeys ulcer oth prt l low leg limited to brkdwn skin L97.811 Non-prs chr ulcer oth prt r low leg limited to brkdwn skin I89.0 Lymphedema, not elsewhere classified I87.2 Venous insufficiency (chronic) (peripheral) Office Visit 03/21/2019 10:12a [facility] Jean Huizar, M25.552 Pain in Assoc, [place] left hip Hospitalists R26.2 Difficulty in walking, not elsewhere classified I48.91 Unspecified atrial fibrillation G89.29 Other chronic pain N18.9 Chronic kidney disease, unspecified Office Visit 03/08/2019 1:00p Wound Care Pérez Amado L97.821 Non-prs chr Center AT [facility] [place] Payne 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 I89.0 Lymphedema, not elsewhere classified I87.2 Venous insufficiency (chronic) (peripheral) Office Visit 02/11/2019 12:45p Wound Care Cecilia Damon L97.821 Non- prs chr Center AT [facility] VIELKA, RN, FIRE MANAGER-BC 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 left hip 05/06/2019 I89.0 Lymphedema, not elsewhere Melanie Polk D.O. classified 05/06/2019 I48.91 Unspecified atrial fibrillation Melanie Polk D.O. 05/06/2019 I50.32 Chronic diastolic (congestive) Melanie Polk D.O. heart failure 05/06/2019 J44.9 Chronic obstructive pulmonary Melanie Polk D.O. disease, unspecified 05/06/2019 Z66 Do not resuscitate Melanie Polk D.O. 05/02/2019 M16.12 Unilateral primary osteoarthritis, Ahsan Petersen MD left hip 05/02/2019 M16.12 Unilateral primary osteoarthritis, Casey Acosta M.D. left hip 05/02/2019 S50.01xA Contusion of right elbow, initial Casey Acosta M.D. encounter 05/02/2019 M25.552 Pain in left hip Ahsan Petersen MD 05/02/2019 M70.21 Olecranon bursitis, right elbow Casey Acosta M.D. 04/21/2019 R06.02 Shortness of breath Chloe Lundy, EDGE STITCHER 04/20/2019 I89.0 Lymphedema, not elsewhere Melanie Polk D.O. classified 04/20/2019 M16.12 Unilateral primary osteoarthritis, Melanie Jam, D.O. left hip 04/20/2019 I48.91 Unspecified atrial fibrillation Melanie Jam, D.O. 04/20/2019 I50.32 Chronic diastolic (congestive) Melanie Jam, D.O. heart failure 04/20/2019 J44.9 Chronic obstructive pulmonary Melanie Jam, D.O. disease, unspecified 04/20/2019 N18.9 Chronic kidney disease, unspecified Melanie Jam, D.O. 04/20/2019 Z66 Do not resuscitate Melanie Jam, D.O. 04/15/2019 L03.115 Cellulitis of right lower limb Chloe Lundy, EDGE STITCHER 04/15/2019 L03.116 Cellulitis of left lower limb Chloe Lundy, EDGE STITCHER 04/01/2019 L97.821 Non-pressure chronic ulcer of other Melanie Jam, D.O. part of left lower leg limited to breakdown of skin 04/01/2019 I89.0 Lymphedema, not elsewhere Melanie Jam, D.O. classified 04/01/2019 L97.821 Non-pressure chronic ulcer of other Cecilia Damon DNP , RN, part of left lower leg limited to [facility] breakdown of skin 04/01/2019 M16.12 Unilateral primary osteoarthritis, Melanie Jam, D.O. left hip 04/01/2019 I48.91 Unspecified atrial fibrillation Melanie Jam, D.O. 04/01/2019 I89.0 Lymphedema, not elsewhere Cecilia Damon DNP, RN, classified [facility] 04/01/2019 I50.32 Chronic diastolic (congestive) Melanie Jam, D.O. heart failure 04/01/2019 J44.9 Chronic obstructive pulmonary Melanie Jam, D.O. disease, unspecified 04/01/2019 I87.2 Venous insufficiency (chronic) Cecilia Damon DNP, RN, (peripheral) [facility] 04/01/2019 N18.9 Chronic kidney disease, unspecified Melanie Jam, D.O. 04/01/2019 Z66 Do not resuscitate Melanie Jam, D.O. 04/01/2019 R09.89 Other specified symptoms and signs Cecilia Damon DNP, RN, involving the circulatory and [facility] respiratory systems 04/01/2019 S81.802D Unspecified open wound, left lower Cecilia Damon DNP , RN, leg, subsequent encounter [employer]RE MANAGER-BC 03/30/2019 M16.12 Unilateral primary osteoarthritis, Casey Acosta M.D. left hip 03/30/2019 S32.110D Nondisplaced Zone I fracture of Casey Acosta M.D. sacrum, subsequent encounter for fracture with routine healing 03/30/2019 M25.452 Effusion, left hip Casey Acosta M.D. 03/25/2019 M16.12 Unilateral primary osteoarthritis, Gilles Mccann M.D. left hip 03/25/2019 M89.9 Disorder of bone, unspecified Abhijit Velasquez.Yaritza 03/24/2019 M16.12 Unilateral primary osteoarthritis, Gilles Mccann [...] 03/22/2019 M25.552 Pain in left hip [place] Corin Doto, EDGE STITCHER 03/22/2019 M79.605 Pain in left leg [place] See NP 03/22/2019 R26.2 Difficulty in walking, not [place] Corin Cui NP elsewhere classified 03/22/2019 L97.821 Non-pressure chronic ulcer of other Evi Hayes NP part of left lower leg limited to breakdown of skin 03/22/2019 J44.9 Chronic obstructive pulmonary [place] See NP disease, unspecified 03/22/2019 L97.811 Non-pressure chronic ulcer of other Eviarya Hayes NP part of right lower leg limited to breakdown of skin 03/22/2019 I89.0 Lymphedema, not elsewhere Eviarya Hayes NP classified 03/22/2019 I87.2 Venous insufficiency [...] part of left lower leg limited to [employer]RE MANAGER-BC breakdown of skin 03/18/2019 L97.811 Non-pressure chronic ulcer of other Cecilia Damon DNP, RN, part of right lower leg limited to FIRE MANAGER-BC breakdown of skin 03/08/2019 L97.821 Non-pressure chronic [...] part of left lower leg limited to FIRE MANAGER-BC breakdown of skin 02/11/2019 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 Cecilia Damon DNP, RN, Staphylococcus aureus infection as FIRE MANAGER-BC the cause of diseases classified elsewhere 02/11/2019 I89.0 Lymphedema, not elsewhere Cecilia Damon DNP, RN, classified [employer] MA[employer]GER[employer] 02/11/2019 I87.2 Venous insufficiency (chronic) Cecilia Damon DNP, RN, (peripheral) [employer] MA[employer]GER[employer] 02/11/2019 L97.811 Non-pressure chronic ulcer of other Cecilia Damon DNP , RN, part of right lower leg limited to FIRE MANAGER-BC breakdown of skin 02/08/2019 S32.19xA Other fracture [...] lower leg l Plan of Treatment Future Appointment(s):09/20/2019 2:00 pm - Mirela James MD at [facility] [id number] /08/2020 11:30 am - Noa Michel, N.P. at [place] Euoilkytia64/26/2020 2:00 pm - Cuca Rucker NP at [facility]06/29/2019 10:30 am - Hugo Snyder M.D. at [facility]08/03/2019 10: 30 am - Casey Acosta M.D. at [facility] at [id number]/21/2019 - Mirela James MDN18.3 Chronic kidney disease, stage 3 (moderate)Follow up:3 MO Functional Status Description No Information Available Mental Status Description No Information Available Referrals Refer to Reason for Referral Status Appt Date Chloe Brownlee MD mass right pelvis Scheduled 02/10/2019 [id number] [phone]
--- OUTSIDE RECORDS SUMMARY | 2019-08-17 00:21 | XMS REPORT | Continuity of Care Document ---
:1930 External Reference #:[id number] Author Name Hugo Snyder M.D. 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 radial, regular BP Systolic Sitting 110 mmHg LA, reg cuff BP Diastolic Sitting 52 mmHg LA, reg cuff BMI (Body Mass Index) 25.2 kg/m2 06/21/2019 1:55pm Height 64 inches 5'4" Weight 152.00 lb Heart Rate 63 /min BP Systolic Sitting 100 mmHg right arm reg cuff BP Diastolic Sitting 52 mmHg right arm reg cuff O2 % BldC Oximetry 91 % room air BMI (Body Mass Index) 26.1 kg/m2 Results Test Acquired Date Facility Test Result H/L Range Note Basic Metabolic 06/21/2019 [facility] Sodium 139 mmol/L Normal 135-[address] [place] [address] [phone] Potassium 4.2 mmol/L Normal 3.5-5.0 Chloride 98 mmol/L Low 101-111 Co2 Carbon Dioxide 32 mmol/L Normal 22-32 Anion Gap 9 mmol/L Normal 2-11 Glucose 103 mg/dL High 70-100 Blood Urea Nitrogen 59 mg/dL High 6-24 Creatinine 1.51 mg/dL High 0.51-0.95 BUN/Creatinine Ratio 39.1 High 8-20 Calcium 8.7 mg/dL Normal 8.6-10.3 Egfr Non- 32.4 >60 Egfr 39.3 >60 1 CBC No Diff 06/21/2019 [facility] White Blood 5.5 10^3/uL Normal 3.5-10.[address] [place] [address] [phone] Red Blood Count 3.74 10^6/uL Normal 3.70-4.87 Hemoglobin 11.8 g/dL Low 12.0-16.0 Hematocrit 37 % Normal 35-47 Mean Corpuscular Volume 98 fL High 80-97 Mean Corpuscular Hemoglobin 32 pg High 27-31 Mean Corpuscular HGB Conc 32 g/dL Normal 31-36 Red Cell Distribution Width 16 % High 10-15 Platelet Count 160 10^3/uL Normal 150-450 Mean Platelet Volume 8.8 fL Normal 7.4-10.4 Xray 05/02/2019 [facility] In House Inj/Aspir Major JT Or Bursa [...] JT Or Bursa W/ US Completed 05/02/2019 02694 Inject/Drain Joint/Bursa Intermediate W/O US Completed 03/18/2019 00352 Removal Devitalization Tissue Wound Less Than Equal 20 Completed Square CM 08/22/2016 [id number] Mammogram Completed Medical Devices Description No Information Available Encounters Type Date Location Provider Dx Diagnosis Office Visit 06/29/2019 [facility] Hugo Snyder, R22.42 Localized 10:30a [facility] [place] swelling, mass and lump, left lower limb R22.41 Localized swelling, mass and lump, right lower limb L03.115 Cellulitis of right lower limb L03.116 Cellulitis of left lower limb L97.811 Non-prs chr ulcer oth prt r low leg limited to brkdwn skin Office Visit 06/21/2019 2:00p [facility] Nephrology Mirela James, I12.9 Hypertensive chronic kidney disease w stg 1-4/unsp chr kdny N18.3 Chronic kidney disease, stage 3 (moderate) R60.0 Localized edema Office Visit 06/08/2019 10:45a [facility] J44.9 [facility] 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 osteoarthritis, left [place] hip S50.01xA Contusion of right elbow, initial encounter M70.21 Olecranon bursitis, right elbow Office Visit 04/21/2019 9:30a [facility] Chloe Lundy, R06.02 Shortness of TECHNICAL COMMUNICATION TEACHER breath Office Visit 04/20/2019 8:45a [facility] Melanie Polk, I89.0 Lymphedema, not D.O. elsewhere classified M16.12 Unilateral primary osteoarthritis, left hip I48.91 Unspecified atrial fibrillation I50.32 Chronic diastolic (congestive) heart failure J44.9 Chronic obstructive pulmonary disease, unspecified N18.9 Chronic kidney disease, unspecified Z66 Do not resuscitate Office Visit 04/15/2019 8:30a [facility] Chloe Lundy, L03.115 Cellulitis of TECHNICAL COMMUNICATION TEACHER right lower limb L03.116 Cellulitis of left lower limb Office Visit 04/01/2019 9:45a [facility] Melanie Polk, L97.821 Non- prs chr D.O. [...] Wound Care Cecilia Damon, L97.821 [facility] VIELKA RN, SENIOR UI DESIGNER-BC ulcer oth prt l low leg limited to brkdwn skin I89.0 Lymphedema, not elsewhere classified I87.2 Venous insufficiency (chronic) (peripheral) R09.89 Oth symptoms and signs involving the circ and resp systems S81.802D Unspecified open wound, left lower leg, subsequent encounter Office Visit 03/30/2019 [facility] Casey Acosta, M16.12 Unilateral primary 11:00a Orthopedics at [place] osteoarthritis, left [place] hip S32.110D [place] I fracture of sacrum, subs for fx w routn heal M25.452 Effusion, left hip Office 03/25/2019 [facility] M16.12 Unilateral primary Visit 10:14a toya Pérez M.D. osteoarthritis, Hospitalists left hip M89.9 Disorder of bone, unspecified Office 03/24/2019 [facility] M16.12 Unilateral primary Visit 10:13a toya Pérez M.D. osteoarthritis, Hospitalists left hip M89.9 Disorder of bone, unspecified I48.91 Unspecified atrial fibrillation N18.9 Chronic kidney disease, unspecified J44.9 Chronic obstructive pulmonary disease, unspecified I50.32 Chronic diastolic (congestive) heart failure Office 03/23/2019 [facility] M16.12 Unilateral primary Visit 10:13a toya Pérez M.D. osteoarthritis, Hospitalists left hip M89.9 Disorder of bone, unspecified I48.91 Unspecified atrial fibrillation J44.9 Chronic obstructive pulmonary disease, unspecified Office Visit 03/23/2019 [place] [id number] Unilateral primary 10:01a [facility] at [place] Marley osteoarthritis, left [place] hip Office Visit 03/22/2019 [facility] M16.12 Unilateral primary 10:00a [facility] at [place] MD osteoarthritis, left [place] hip Office Visit 03/22/2019 [facility] Lucero M25.552 Pain in left hip 10:12a [facility] Cui M79.605 Pain in left leg R26.2 Difficulty in walking, not elsewhere classified J44.9 Chronic obstructive pulmonary disease, unspecified Office Visit 03/22/2019 8:00a Wound Care Evi Justin L97.821 Non- prs chr Center AT [facility] RADHA Hayes ulcer oth prt l low leg limited to brkdwn skin L97.811 Non-prs chr ulcer oth prt r low leg limited to brkdwn skin I89.0 Lymphedema, not elsewhere classified I87.2 Venous insufficiency (chronic) (peripheral) Office Visit 03/21/2019 10:12a [facility] Jena Huizar, M25.552 Pain in Assoc,pc Kristen. 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 I89.0 Lymphedema, not elsewhere classified I87.2 Venous insufficiency (chronic) (peripheral) Office Visit 02/11/2019 12:45p Wound Care Cecilia Damon L97.821 [facility] VIELKA, RN, SENIOR UI DESIGNER-BC 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 classified 04/20/2019 M16.12 Unilateral primary osteoarthritis, Melanie Jam, D.O. left hip 04/20/2019 I48.91 Unspecified atrial fibrillation Melanie Jam, D.O. 04/20/2019 I50.32 Chronic diastolic (congestive) Melanie Jam, D.O. heart failure 04/20/2019 J44.9 Chronic obstructive pulmonary Melanie Jam, D.O. disease, unspecified 04/20/2019 N18.9 Chronic kidney disease, unspecified Melanie Jam, D.O. 04/20/2019 Z66 Do not resuscitate Melanie Polk, D.O. 04/15/2019 L03.115 Cellulitis of right lower limb Chloe Lundy, TECHNICAL COMMUNICATION TEACHER 04/15/2019 L03.116 Cellulitis of left lower limb Chloe Lundy, TECHNICAL COMMUNICATION TEACHER 04/01/2019 L97.821 Non-pressure chronic ulcer of other Melanie Jam, D.O. part of left lower leg limited to breakdown of skin 04/01/2019 I89.0 Lymphedema, not elsewhere Melanie Jam, D.O. classified 04/01/2019 L97.821 Non-pressure chronic ulcer of other Cecilia Damon DNP , RN, part of left lower leg limited to [facility] breakdown of skin 04/01/2019 M16.12 Unilateral primary osteoarthritis, Melanie Jam, D.O. left hip 04/01/2019 I48.91 Unspecified atrial fibrillation Melanie Polk D.O. 04/01/2019 I89.0 Lymphedema, not elsewhere Cecilia Damon DNP, RN, classified [facility] 04/01/2019 I50.32 Chronic diastolic (congestive) Melanie Jam, D.O. heart failure 04/01/2019 J44.9 Chronic obstructive pulmonary Melanie Jam, D.O. disease, unspecified 04/01/2019 I87.2 Venous insufficiency (chronic) Cecilia Damon DNP, RN, (peripheral) [facility] 04/01/2019 N18.9 Chronic kidney disease, unspecified Melanie Jam, D.O. 04/01/2019 Z66 Do not resuscitate Melanie Polk D.O. 04/01/2019 R09.89 Other specified symptoms and signs Cecilia Damon DNP, RN, involving the circulatory and [facility] respiratory systems 04/01/2019 S81.802D Unspecified open wound, left lower Cecilia Damon DNP , RN, leg, subsequent encounter SENIOR UI DESIGNER-BC 03/30/2019 M16.12 Unilateral primary osteoarthritis, Casey Acosta [...] unspecified 03/22/2019 M16.12 Unilateral primary osteoarthritis, Haydee [place], PA left hip 03/22/2019 M25.552 Pain in [...] part of left lower leg limited to SENIOR UI DESIGNER-BC breakdown of skin 03/18/2019 L97.811 Non-pressure chronic ulcer of other Cecilia Damon DNP , RN, part of right lower leg limited to SENIOR UI DESIGNER-BC breakdown of skin 03/08/2019 L97.821 Non-pressure chronic ulcer of other Pérez Payne M.D. 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 Elmer, M.D. Staphylococcus aureus infection as the cause of diseases classified elsewhere 03/08/2019 I89.0 Lymphedema, not elsewhere Pérez Payne M.D. classified 03/08/2019 I87.2 Venous insufficiency (chronic) Pérez Payne M.D. 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 Cecilia Damon DNP , RN, part of left lower leg limited to SENIOR UI DESIGNER-BC breakdown of skin 02/11/2019 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 Cecilia Damon DNP, RN, Staphylococcus aureus infection as SENIOR UI DESIGNER-BC the cause of diseases classified elsewhere 02/11/2019 I89.0 Lymphedema, not elsewhere Cecilia Damon DNP, RN, classified SENIOR UI DESIGNER-BC 02/11/2019 I87.2 Venous insufficiency (chronic) Cecilia Damon DNP, RN, (peripheral) SENIOR UI DESIGNER-BC 02/11/2019 L97.811 Non-pressure chronic ulcer of other Cecilia Damon DNP RN, part of right lower leg limited to SENIOR UI DESIGNER-BC breakdown of skin 02/08/2019 S32.19xA Other fracture [...] 2:00 pm - Mirela James MD at [facility] Ngvuffectl01 /08/2020 11:30 am - Noa Michel, N.P. at [facility] Vvkmmnnsgz01/26/2020 2:00 pm - Cuca Rucker NP at [facility]08/03/2019 10:30 am - Casey Acosta M.D. at [place] [facility] at Mwexgu8110/11/2018 - Nurse Visit ccI48.91 Unspecified atrial [id number] Essential (primary) hypertension Functional Status Description No Information Available Mental Status Description No Information Available Referrals Refer to Reason for Referral Status Appt Date Physical Therapy AT [facility] [address] [place] [address] [place] [address] [phone] Chloe Brownlee MD mass right pelvis Scheduled 02/10/2019 [address] [facility] [place] [address] [phone]
--- OUTSIDE RECORDS SUMMARY | 2019-08-17 00:21 | XMS REPORT | Continuity of Care Document ---
:1930 External Reference #:[id number] Author Name Noa Michel N.P. (transmitted by agent of provider Dara Espinosa) Address [address] [place] [id number] Care Team Providers Name Role Phone Jose Thompson MD - Family Care Team Information Sample Prep Technician [phone] Medicine Problems Active Problems Provider Date Dyspnea [...] cigarettes/day) not smoke when Smoking Status Reviewed: 07/20/19 Light tobacco smoker 2 Packs/week for (10 [...] D3 1 by mouth daily Unknown 07/19/2019 [id number] Tablets Spironolactone 1 tablet by mouth 45tabs [...] CPT Code Status Date Vaccine Lot # [id number] Given 06/15/2017 Influenza Virus Vaccine, Quadrivalent, Split, [id number] Preservative Free Vital Signs Date Vital Result Comment 07/20/2019 11:15am Height 64 inches 5'4" Weight 149.25 lb per pt, at home today Heart Rate 66 /min radial,regular BP Systolic Sitting 102 mmHg Ra, reg cuff BP Diastolic Sitting 42 mmHg Ra, reg cuff BMI (Body Mass Index) 25.6 kg/m2 Ejection Fraction 50%-55% echo 07/18/18 06/29/2019 11:04am Height 64 inches 5'4" Weight 147.00 lb w/ shoes Heart Rate 68 /min L. radial, regular BP Systolic Sitting 110 mmHg LA, reg cuff BP Diastolic Sitting 52 mmHg LA, reg cuff BMI (Body Mass Index) 25.2 kg/m2 Results Test Acquired Date Facility Test Result H/L Range Note Basic Metabolic 06/21/2019 [facility] Sodium 139 mmol/L Normal 135-[address] [place] [address] [phone] Potassium 4.2 mmol/L Normal 3.5-5.0 Chloride 98 mmol/L Low 101-111 Co2 Carbon Dioxide 32 mmol/L Normal 22-32 Anion Gap 9 mmol/L Normal 2-11 Glucose 103 mg/dL High 70-100 Blood Urea Nitrogen 59 mg/dL High 6-24 Creatinine 1.51 mg/dL High 0.51-0.95 BUN/Creatinine Ratio 39.1 High 8-20 Calcium 8.7 mg/dL Normal 8.6-10.3 Egfr Non- 32.4 >60 Egfr 39.3 >60 1 CBC No Diff 06/21/2019 [facility] White Blood 5.5 10^3/uL Normal 3.5-10.[address] [place] [address] [phone] Red Blood Count 3.74 10^6/uL Normal 3.70-4.87 Hemoglobin 11.8 g/dL Low 12.0-16.0 Hematocrit 37 % Normal 35-47 Mean Corpuscular Volume 98 fL High 80-97 Mean Corpuscular Hemoglobin 32 pg High 27-31 Mean Corpuscular HGB Conc 32 g/dL Normal 31-36 Red Cell Distribution Width 16 % High 10-15 Platelet Count 160 10^3/uL Normal 150-450 Mean Platelet Volume 8.8 fL Normal 7.4-10.4 Xray 05/02/2019 [facility] In House Inj/Aspir Major JT Or Bursa [...] JT Or Bursa W/ US Completed 05/02/2019 Inject/Drain Joint/Bursa Intermediate W/O US Completed 03/18/2019 00453 Removal Devitalization Tissue Wound Less Than Equal 20 Completed Square CM 08/22/2016 [id number] Mammogram Completed Medical Devices Description No Information Available Encounters Type Date Location Provider Dx Diagnosis Office Visit 06/29/2019 [facility] Hugo Snyder, R22.42 Localized 10:30a [facility] [place] swelling, mass and lump, left lower limb R22.41 Localized swelling, mass and lump, right lower limb L03.115 Cellulitis of right lower limb L03.116 Cellulitis of left lower limb L97.811 Non-prs chr ulcer oth prt r low leg limited to brkdwn skin Office Visit 06/21/2019 2:00p [facility] Nephrology Mirela James, I12.9 Hypertensive chronic kidney disease w stg 1-4/unsp chr kdny N18.3 Chronic kidney disease, stage 3 (moderate) R60.0 Localized edema Office Visit 06/08/2019 10:45a [facility] J44.9 [facility] Jaja obstructive Pediatric Neurologist pulmonary disease, unspecified R09.02 Hypoxemia Office Visit 05/02/2019 Kathy Acosta, M16.12 Unilateral primary 2:15p Orthopedics at .. osteoarthritis, left [facility] hip S50.01xA Contusion of right elbow, initial encounter M70.21 Olecranon bursitis, right elbow Office Visit 04/21/2019 9:30a [facility] Chloe Lundy, R06.02 Shortness of LOGISTICS SPECIALIST breath Office Visit 04/20/2019 8:45a [facility] Melanie Polk, I89.0 Lymphedema, not D.O. elsewhere classified M16.12 Unilateral primary osteoarthritis, left hip I48.91 Unspecified atrial fibrillation I50.32 Chronic diastolic (congestive) heart failure J44.9 Chronic obstructive pulmonary disease, unspecified N18.9 Chronic kidney disease, unspecified Z66 Do not resuscitate Office Visit 04/15/2019 8:30a [facility] Chloe Lundy, L03.115 Cellulitis of LOGISTICS SPECIALIST right lower limb L03.116 Cellulitis of left lower limb Office Visit 04/01/2019 9:45a [facility] Melanie Polk, L97.821 Non- prs chr D.O. [...] Wound Care Cecilia Damon, L97.821 Non- prs arh [facility] VIELKA RN, RESEARCH PROGRAM MANAGER- ulcer oth prt l low leg limited to brkdwn skin I89.0 Lymphedema, not elsewhere classified I87.2 Venous insufficiency (chronic) (peripheral) R09.89 Oth symptoms and signs involving the circ and resp systems S81.802D Unspecified open wound, left lower leg, subsequent encounter Office Visit 03/30/2019 [place] [facility] Acosta, M16.12 Unilateral primary 11:00a Orthopedics at [place] osteoarthritis, left [facility] hip S32.110D [place] I fracture of sacrum, subs for fx w routn heal M25.452 Effusion, left hip Office 03/25/2019 [facility] M16.12 Unilateral primary Visit 10:14a toya Pérez M.D. osteoarthritis, Hospitalists left hip M89.9 Disorder of bone, unspecified Office 03/24/2019 [facility] M16.12 Unilateral primary Visit 10:13a toya Pérez M.D. osteoarthritis, Hospitalists left hip M89.9 Disorder of bone, unspecified I48.91 Unspecified atrial fibrillation N18.9 Chronic kidney disease, unspecified J44.9 Chronic obstructive pulmonary disease, unspecified I50.32 Chronic diastolic (congestive) heart failure Office 03/23/2019 [facility] M16.12 Unilateral primary Visit 10:13a toya Pérez M.D. osteoarthritis, Hospitalists left hip M89.9 Disorder of bone, unspecified I48.91 Unspecified atrial fibrillation J44.9 Chronic obstructive pulmonary disease, unspecified Office Visit 03/23/2019 [place] 617126.12 Unilateral primary 10:01a Orthopedics at [facility] [place] osteoarthritis, left [facility] hip Office Visit 03/22/2019 [facility] M16.12 Unilateral primary 10:00a Orthopedics at [facility] osteoarthritis, left [facility] hip Office Visit 03/22/2019 [facility] Lucero M25.552 Pain in left [facility] 10[facility] M79.605 Pain in left leg R26.2 Difficulty in walking, not elsewhere classified J44.9 Chronic obstructive pulmonary disease, unspecified Office Visit 03/22/2019 8:00a Wound Care Evi Justin L97.821 Non- prs chr Center AT [facility] RADHA Hayes ulcer oth prt l low leg limited to brkdwn skin L97.811 Non-prs chr ulcer oth prt r low leg limited to brkdwn skin I89.0 Lymphedema, not elsewhere classified I87.2 Venous insufficiency (chronic) (peripheral) Office Visit 03/21/2019 10:12a [facility] Jena Huizar, M25.552 Pain in Assoc,pc Kristen. 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 I89.0 Lymphedema, not elsewhere classified I87.2 Venous insufficiency (chronic) (peripheral) Office Visit 02/11/2019 12:45p Wound Care Cecilia Damon L97.821 Non- prs arh [facility] AT [facility] VIELKA, RN, RESEARCH PROGRAM MANAGER-BC 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 (moderate) 07/20/2019 R60.0 Localized edema Noa Michel, N.P. 07/20/2019 I48.91 Unspecified atrial fibrillation Noa Michel N.P. 07/20/2019 I50.32 Chronic diastolic (congestive) Noa Michel N.P. heart failure 06/29/2019 R22.42 Localized swelling, [...] classified 04/20/2019 M16.12 Unilateral primary osteoarthritis, Melanie Polk D.O. left hip 04/20/2019 I48.91 Unspecified atrial fibrillation Melanie Polk D.O. 04/20/2019 I50.32 Chronic diastolic (congestive) Melanie Polk D.O. heart failure 04/20/2019 J44.9 Chronic obstructive pulmonary Harpreet Lim.O. disease, unspecified 04/20/2019 N18.9 Chronic kidney disease, unspecified Melanie Helmr D.O. 04/20/2019 Z66 Do not resuscitate Melanie Polk D.O. 04/15/2019 L03.115 Cellulitis of right lower limb Chloe Lundy, LOGISTICS SPECIALIST 04/15/2019 L03.116 Cellulitis of left lower limb Chloe Lundy, LOGISTICS SPECIALIST 04/01/2019 L97.821 Non-pressure chronic ulcer of other Melanie Polk D.O. part of left lower leg limited to breakdown of skin 04/01/2019 I89.0 Lymphedema, not elsewhere Melanie Helmr D.O. classified 04/01/2019 L97.821 Non-pressure chronic ulcer of other Cecilia Damon DNP , RN, part of left lower leg limited to RESEARCH PROGRAM MANAGER-BC breakdown of skin 04/01/2019 M16.12 Unilateral primary osteoarthritis, Melanie Polk D.O. left hip 04/01/2019 I48.91 Unspecified atrial fibrillation Melanie Polk D.O. 04/01/2019 I89.0 Lymphedema, not elsewhere Cecilia Damon DNP, RN, classified RESEARCH PROGRAM MANAGER-BC 04/01/2019 I50.32 Chronic diastolic (congestive) Melanie Jam, D.O. heart failure 04/01/2019 J44.9 Chronic obstructive pulmonary Melanie Polk D.O. disease, unspecified 04/01/2019 I87.2 Venous insufficiency (chronic) Cecilia Damon DNP, RN, (peripheral) [facility] 04/01/2019 N18.9 Chronic kidney disease, unspecified Harpreet Lim.O. 04/01/2019 Z66 Do not resuscitate Melanie Polk D.O. 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 Cecilia Damon DNP, RN, Staphylococcus aureus infection as RESEARCH PROGRAM MANAGER-BC the cause of diseases classified elsewhere 02/11/2019 I89.0 Lymphedema, not elsewhere Cecilia Damon DNP, RN, classified RESEARCH PROGRAM MANAGER-BC 02/11/2019 I87.2 Venous insufficiency (chronic) Cecilia Damon DNP, RN, (peripheral) RESEARCH PROGRAM MANAGER-BC 02/11/2019 L97.811 Non-pressure chronic ulcer of other Cecilia Damon DNP , RN, part of right lower leg limited to RESEARCH PROGRAM MANAGER-BC breakdown of skin 02/08/2019 S32.19xA Other [...] lower leg l Plan of Treatment Future Appointment(s):08/22/2019 2:00 pm - [place] [facility] Schedule at [facility]09/20/2019 2:00 pm - Mirela James MD at [facility] Tyrryavdze88/26/2020 2: 00 pm - Cuca Rucker NP at [facility]2019 10:30 am - Casey Acosta M.D. at [place] [facility]/20/2019 - Noa Michel N.P.N18.3 Chronic kidney disease, stage 3 (moderate)R60.0 Localized rehclH03.91 Unspecified atrial uatcntenamuqU54.32 Chronic diastolic ( congestive) heart failureNew Orders:Echocardiogram, Scheduled: 08/22/19Follow up :OV QSM 6m w/ EKGRecommendations:Continue Torsemide and Spironolactone. We will check echo to look at R heart and pressures and L heart strength. Functional Status Description No Information Available Mental Status Description No Information Available Referrals Refer to Reason for Referral Status Appt Date [facility] [place] [facility] [address] [facility] [place] [address] [place] [address] [phone] Chloe Brownlee MD mass right pelvis Scheduled 02/10/2019 [address] [facility] [place] [address] [phone]
[2019-08-17 01:18] LABS: ABS Eosinophils 0.1 10^3/ul (0-0.6); ABS Lymphocytes 1.7 10^3/ul (1.0-4.8); ABS Monocytes 0.5 10^3/ul (0-0.8); ABS Neutrophils 2.5 10^3/ul (1.5-7.7); Eosinophil % 2.1 %; Hematocrit 36 % (35-47); Hemoglobin 11.5 g/dL (12.0-16.0); Lymphocyte % 35.3 %; Mean Corpuscular HGB Conc 32 g/dL (31-36); Mean Corpuscular Hemoglobin 32 pg (27-31); Mean Corpuscular Volume 98 fL (80-97); Mean Platelet Volume 9.9 fL (7.4-10.4); Nucleated Red Blood Cells % 0.1; Platelet Count 140 10^3/uL (150-450); Red Blood Count 3.63 10^6 /uL (3.70-4.87); Red Cell Distribution Width 15 % (10-15); White Blood Count 4.8 10^3/uL (3.5-10.8)
[2019-08-17 01:35] LABS: Albumin 3.4 g/dL (3.2-5.2); Albumin/Globulin Ratio 1.1 (1-3); BUN/Creatinine Ratio 32.4 (8-20); C Reactive Protein 12.13 mg/L (<8.01); Calcium 8.7 mg/dL (8.6-10.3); EGFR African American 44.3 (>60); EGFR Non-African American 36.6 (>60); Globulin 3.2 g/dL (2-4); Potassium 4.2 mmol/L (3.5-5.0); Total Bilirubin 0.5 mg/dL (0.2-1.0); Total Protein 6.6 g/dL (6.4-8.9)
[2019-08-17] MEDS ORDERED: Cephalexin CAP* 500 MG PO ONE (02:15)
[2019-08-17] MEDS ORDERED: Acetaminophen TAB* 325 MG PO ONE (02:47)
[2019-08-17] MEDS ORDERED: cefTRIAXone(*) 1 GM in NS 0.9% 50 ML* 50 ML IVPB ONE (09:06)
[2019-08-17] MEDS ORDERED: NS 0.9% 1000 ML** 1,000 ML IV ONE (09:06)
--- NOTE | 2019-08-17 10:38 | ED ---
Progress - Progress Note Progress Note: Pt was not a sign-out from upon shift change at 08/17/2019 0700. Original disposition was discharge but pt is now being admitted. Pt diagnosed with LE cellulitis. Pt lives alone and feels unsafe for discharge. Pt required two person assist on standing. Discussed with hospitalist for admission. Course/Dx - Diagnoses Provider Diagnoses: Cellulitis - Provider Notifications Discussed Care Of Patient With: Maykel Kemp Instructed by Provider To: Admit As Inpatient Discharge ED - Sign-Out/Discharge Documenting (check all that apply): Patient Departure - admit - Discharge Plan Condition: Stable Disposition: ADMITTED TO [facility] - Billing Disposition and Condition Condition: STABLE Disposition: Admitted to [facility] - Attestation Statements Document Initiated by Susan: Yes Documenting Scribe: Ivan Reddy Provider For Whom Susan is Documenting (Include Credential): David Reynoso DO Scribe Attestation: IIvan scribed for David Reynoso DO on 08/17/19 at 1234. Scribe Documentation Reviewed: Yes Provider Attestation: The documentation as recorded by the scribeIvan accurately reflects the service I personally performed and the decisions made by me, David Reynoso DO Status of Scribe Document: Viewed
[2019-08-17 11:17] LABS: Activated Partial Thrombo Time 45.7 seconds (26.0-38.0); INR 2.01 (0.82-1.09)
[2019-08-17] MEDS: Olopatadine 0.1% OPHTH (NF) 1 DROP BTL BOTH EYES SCH ×2 (13:28→21:12)
[2019-08-17] MEDS: oxyCODONE TAB* 5 MG TAB PO PRN ×2 (13:28→21:07)
[2019-08-17] MEDS ORDERED: Ondansetron TAB* 4 MG PO PRN (13:44)
[2019-08-17] MEDS ORDERED: Polyethylene Glycol 3350* 17 GM PACKET PO PRN (13:44)
[2019-08-17] MEDS ORDERED: Albuterol/Ipratropium NEB.SOL* Albuterol 2.5 MG/Ipratropium 0.5 MG 3 ML INH PRN (13:44)
[2019-08-17] MEDS ORDERED: Nitroglycerin TAB 0.4 MG* 0.4 MG TAB SL PRN (13:44)
[2019-08-17] MEDS ORDERED: Levalbuterol HFA INHALER* 1 PUFF MDI INH PRN (13:44)
[2019-08-17] MEDS ORDERED: traZODone TAB* 50 MG TAB PO PRN (13:44)
[2019-08-17] MEDS ORDERED: LORazepam TAB(*) 0.5 MG PO PRN (13:44)
[2019-08-17] MEDS ORDERED: Artificial Tears* 15 ML BTL BOTH EYES PRN (13:44)
[2019-08-17] MEDS ORDERED: Heparin VIAL(*) 5000 UNITS/ML VIAL (FIVE THOUSAND) SUBCUT SCH (14:00)
[2019-08-17 14:30] LABS: Urine Appearance Clear; Urine Bilirubin Negative (Negative); Urine Blood Negative (Negative); Urine Color Straw; Urine Glucose Negative (Negative); Urine Ketones Negative (Negative); Urine Nitrite Negative (Negative); Urine Protein Negative (Negative); Urine Urobilinogen Negative (Negative)
--- NOTE | 2019-08-17 14:35 | HP ---
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 Jose Thompson. ATTENDING PHYSICIAN: Dr. eKmp * (dictated by Felipe Talbot, RADHA). CHIEF COMPLAINT: Pain to both legs. HISTORY OF PRESENT ILLNESS: Ms. Saldana is an 89-year-old female who states she has had worsening pain, swelling, and redness to bilateral lower extremities since 08/14/19. She states that yesterday she was not able to walk very well and today it was bad enough that she called EMS to be brought to the emergency department. She also complains of shortness of breath which has been worse since Thursday, also it is worse with activity. States that she has had some increased phlegm production, which has been pale green, thick, and she states that she is coughing up stuff often. Denies having any previous episodes such as this to her bilateral lower legs. She has also been complaining of some right-sided chest pain on and off since Thursday. She states that she has been having this same pain for a long time, but that she believes this has been happening more often since Thursday. She states that it happens sometimes with activity, sometimes without. She is unsure if anything makes it better or worse, states that it will only last for a short period of time such as a minute or two. She states she is often nauseous, this is per her baseline, this is nothing new. She denies any fever, chills, night sweats, recent unexplained weight loss, visual changes, palpitations, wheezing, diarrhea , difficulty urinating, unusual muscle aches or joint stiffness. No rashes, lesions, or wounds other than what is on her legs. While in the emergency department, she did receive a dose of Tylenol as well as a dose of Keflex. The patient states that she has been taking extra strength Tylenol at home 2 tablets about every 6 hours or so. States that her current dose of oxycodone, which is 15 mg every 6 hours as needed has not been helping her leg pain. She does note that she has had Keflex in the past and has not had any issues with this. States that a surrogate decision maker for her would be her daughter Masha Saldana who lives in [place]. PAST MEDICAL HISTORY: Chronic thrombocytopenia; AFib; peripheral neuropathy; asthma; COPD, wears 2 L at night; pneumonia with previous hospitalizations; chronic renal failure; arthritis; back problems; multiple orthopedic injuries to her right arm, right ankle and toes; thyroid disease; anemia; coronary artery disease; angina; TB in 1994; GERD; upper GI ulcer; congestive heart failure; DVT confirmed on 11/12/18; hypercholesterolemia; hypertension; valvular heart disease; tricuspid regurgitation; anxiety; depression. PAST SURGICAL HISTORY: Cholecystectomy, partial gastrectomy in relation to the ulcers, hysterectomy, lumbar laminectomy, cataract removal, left breast lumpectomy, partial thyroidectomy, appendectomy, tonsillectomy. HOME MEDICATIONS: 1. Spironolactone 25 mg p.o. daily. 2. Artificial tears 1 drop both eyes q.2 hours p.r.n. 3. Milk of mag 30 mL p.o. b.i.d. p.r.n. 4. Ferrous sulfate 325 mg p.o. daily. 5. Acetaminophen extra strength p.o. q.6 hours p.r.n., see HPI. 6. Magnesium oxide 400 mg p.o. b.i.d. 7. Duloxetine DR 20 mg p.o. daily. 8. Oxycodone 15 mg p.o. q.6 hours p.r.n. 9. Coumadin 3 mg p.o. Thursday, Thursday, Thursday. 10. Coumadin 1.5 mg p.o. all other days. 11. Lactobacillus acidophilus 1 cap p.o. daily. 12. Trazodone 50 to 100 mg p.o. bedtime p.r.n. 13. Ipratropium/albuterol sulfate 0.5/3 mg per 3 mL, 1 vial inhaled q.i.d. 14. MiraLAX 17 g p.o. daily p.r.n. 15. Lubiprostone 24 mcg p.o. b.i.d. 16. Simethicone 80 to 160 mg p.o. h.s. p.r.n. 17. Lidoderm patch 1 patch transdermal daily. 18. Calcium carbonate and vitamin D3 one tab p.o. daily. 19. Lyrica 50 mg p.o. b.i.d. 20. Nitroglycerin 0.4 mg sublingual q.5 minutes p.r.n. 21. Lorazepam 0.5 mg p.o. b.i.d. p.r.n. 22. Symbicort 160/4.5 two puffs inhaled b.i.d. 23. Cholecalciferol caps 800 units p.o. daily. 24. Levothyroxine 12.5 mcg p.o. daily. 25. DuoNeb 1 neb inhaled t.i.d. p.r.n. 26. Tiotropium capsule 1 cap inhaled daily. 27. Metoprolol succinate XL 25 mg p.o. daily. 28. FiberCon 625 mg p.o. b.i.d. 29. Omeprazole 20 mg p.o. daily. 30. Cyclobenzaprine 5 to 10 mg p.o. q.p.m. p.r.n. 31. Biotene oral rinse 15 mL swish and spit q.i.d. 32. Ondansetron 4 mg p.o. q.4 to 6 hours p.r.n. 33. Torsemide 40 mg p.o. daily. 34. Levalbuterol HFA inhaler 2 puffs inhaled q.i.d. p.r.n. 35. Famotidine 20 mg p.o. b.i.d. 36. Olopatadine HCl 0.1% one drop to both eyes b.i.d. p.r.n. all medications were confirmed with the patient ALLERGIES: FENTANYL, SULFAMETHOXAZOLE, TRIMETHOPRIM, CIPROFLOXACIN, CODEINE, and PENICILLINS. SOCIAL HISTORY: The patient lives alone at her home. States that she uses her walker to get around, but has no issues doing so. Has 2 daughters, one of which is living. States she quit smoking about 30 years ago, states she was smoking about 2 packs per week for about 40 years. Admits to very little alcohol use, states maybe some wine every couple of months or so. Denies any illicit drug use. REVIEW OF SYSTEMS: A 10-point review of systems was completed with the patient. See HPI for all pertinent positives and negatives. PHYSICAL EXAMINATION CONSTITUTIONAL: The patient is sitting up in bed, appears slightly uncomfortable. VITAL SIGNS: Last vital signs: Temp 98.5, heart rate 85, respiratory rate 16, O2 saturation 99% on room air, blood pressure 138/85. HEENT: PERRLA. No scleral icterus. NECK: Supple. LYMPHATIC: No cervical lymphadenopathy or supraclavicular lymphadenopathy noted. RESPIRATORY: Fine inspiratory crackles noted to bilateral lung bases, otherwise all other lobes clear throughout. Normal respiratory effort. No cough noted during examination. CARDIOVASCULAR: Heart rate irregular. S1, S2 present. No murmurs, rubs, or gallops noted. No JVD. GI: Bowel sounds x4, soft, nontender to palpation. No organomegaly noted. EXTREMITIES: Pedal pulses present, 2+ bilaterally. Moderate pitting edema noted to bilateral ankles. MUSCULOSKELETAL: Range of motion and strength within normal limits to bilateral upper extremities. Weakness noted to bilateral lower extremities. Unable to fully lift bilateral lower extremities off of bed. NEURO: Alert and oriented x3. Cranial nerves II through XII grossly intact. Able to sense light touch to bilateral feet. PSYCH: Responds appropriately. Normal affect. SKIN: Erythema, swelling, and warmth noted to bilateral lower extremities from below the knee to above the ankles. No drainage noted. Skin appears to be intact. DIAGNOSTIC STUDIES/LAB DATA: EKG shows atrial fibrillation. Chest x-ray, impression: States the constellation of findings favors bronchopneumonia superimposed on chronic obstructive pulmonary disease. Laboratory findings: WBC 4.8, RBC 3.63, hemoglobin 11.5, hematocrit 36, MCV 98 , MCH 32, platelet count 140. INR 2.01, APTT 45.7. Sodium 142, potassium 4.2, chloride 102, carbon dioxide 35, anion gap 5, BUN 44, creatinine 1.36, estimated GFR 36.6, BUN/creatinine ratio 32.4, glucose 105, lactic acid 0.5, calcium 8.7. Total bili 0.5, AST 14, ALT 8, alkaline phosphatase 108, CRP 12.13 , albumin 3.4, total protein 6.6. ASSESSMENT AND PLAN: Ms. Saldana is a pleasant 89-year-old female with past medical history significant for atrial fibrillation, peripheral neuropathy, chronic obstructive pulmonary disease, pneumonia, chronic renal failure, chronic thrombocytopenia, thyroid disease, coronary artery disease, angina, congestive heart failure, deep vein thrombosis, hypertension, who presented to the emergency department today with complaints of increased bilateral lower extremity pain, redness, and swelling as well as shortness of breath. The hospital medicine team was asked to consult for admission, being admitted for increased weakness and pain, she is unable to get up and ambulate and she lives alone at home. 1. Cellulitis. cellulitis vs venous stasis. Bilateral lower extremities are swollen, erythematous, and warm. Does not appear to have signs of systemic infection at this point. Started on ceftriaxone 1 g IV daily. Requested from nursing to outline erythema on bilateral lower extremities. If no response to abx and remains free of any other signs of infection it would not be unreasonable to assume that this is not an infectious process and rather related to poor circulation, especially given that this is happening bilaterally. 2. History of deep vein thrombosis. The patient had confirmed deep vein thrombosis in November 2018 to bilateral lower extremities. Last study performed on 08/08/19, impression stated the peroneal veins are poorly visualized bilaterally. With this constraint, there is no evidence of deep vein thrombosis. The patient is already anticoagulated on Coumadin therapy. We will check her INR. If this is therapeutic, we will continue her usual Coumadin dosing. If not, we will bridge with heparin subcu. 3. Atrial fibrillation. EKG from this morning shows atrial fibrillation. We will continue with Coumadin. We will continue to monitor for any cardiac abnormalities. 4. Chronic obstructive pulmonary disease. Chest x-ray findings did not show any obvious acute process, although the patient does complain of increased sputum production. Is currently able to maintain adequate O2 sat on room air. Will use O2 at night as necessary. Sputum sample ordered. 5. Congestive heart failure. The patient was noted to have some fine inspiratory crackles to bilateral lung bases. We will hold off on any fluids at this time. We will continue to monitor for signs of congestive heart failure exacerbation as well as dehydration. 6. Thyroid disease, chronic condition. We will continue usual levothyroxine regimen. 7. Hypertension, chronic condition. BPs have been stable since arrival to the ED today. We will continue with usual medication regimen. 8. FEN: We will continue with heart healthy, caffeine okay diet. No fluids at this time to avoid any congestive heart failure exacerbation. 9. Code status: Full code. 10. DVT prophylaxis: Depending upon INR, we will continue with usual Coumadin dosage and bridge with heparin subcu if necessary. TIME SPENT: Approximately 75 minutes was spent on this admission with about half of that being [id number] with the patient. Case reviewed by my attending physician Dr. Kemp, and he agrees with this plan. FELIPE TALBOT NP [id number]/[facility] #: [id number] MTDHarpreet
[2019-08-17] MEDS: Acetaminophen TAB* 325 MG PO PRN (16:31)
[2019-08-17] MEDS: Cyclobenzaprine TAB* 10 MG PO PRN (16:32)
[2019-08-17] MEDS ORDERED: Warfarin TAB(*) 3 MG PO ONE (17:00)
[2019-08-17] MEDS ORDERED: Albuterol/Ipratropium NEB.SOL* Albuterol 2.5 MG/Ipratropium 0.5 MG 3 ML INH SCH (17:00)
[2019-08-17] MEDS: Oral Rinse (Biotene)(NF) 237 ML or 473 ML ORAL RINSE BTL MT SCH ×2 (17:19→20:49)
[2019-08-17] MEDS: Mometasone/Formoter 200/5 MDI INH SCH (20:30)
[2019-08-17] MEDS: Senna TAB 8.6 mg* TAB PO SCH (20:47)
[2019-08-17] MEDS: Calcium Polycarbophil TAB* 625 MG PO SCH (20:47)
[2019-08-17] MEDS: Pregabalin 50 mg CAP (*) PO SCH (20:47)
[2019-08-17] MEDS: Magnesium Oxide TAB* 400 MG PO SCH (20:47)
[2019-08-17] MEDS: Famotidine TAB* 20 MG PO SCH (20:47)
[2019-08-17] MEDS: CMCS: Lubiprostone 24 MCG CAP (NF) PO SCH (20:48)
[2019-08-17] MEDS: Dextran 70/Hypromellose Tears Eye Drops 15 ml BTL (for Artificials Tears) BOTH EYES PRN (20:48)
[2019-08-18] MEDS: Acetaminophen TAB* 325 MG PO PRN ×2 (03:56→13:15)
[2019-08-18] MEDS: oxyCODONE TAB* 5 MG TAB PO PRN ×4 (04:00→22:29)
[2019-08-18] MEDS: Levothyroxine TAB* 25 MCG TAB PO SCH (05:32)
[2019-08-18 07:11] LABS: ABS Basophils 0.1 10^3/ul (0-0.2); ABS Eosinophils 0.1 10^3/ul (0-0.6); ABS Lymphocytes 1.7 10^3/ul (1.0-4.8); ABS Monocytes 0.4 10^3/ul (0-0.8); ABS Neutrophils 1.9 10^3/ul (1.5-7.7); Eosinophil % 2.2 %; Hematocrit 38 % (35-47); Hemoglobin 12.3 g/dL (12.0-16.0); Mean Corpuscular HGB Conc 33 g/dL (31-36); Mean Corpuscular Hemoglobin 32 pg (27-31); Mean Corpuscular Volume 97 fL (80-97); Mean Platelet Volume 8.4 fL (7.4-10.4); Nucleated Red Blood Cells % 0.1; Platelet Count 182 10^3/uL (150-450); Red Blood Count 3.87 10^6 /uL (3.70-4.87); Red Cell Distribution Width 15 % (10-15); White Blood Count 4.2 10^3/uL (3.5-10.8)
[2019-08-18 07:13] LABS: INR 1.89 (0.82-1.09)
[2019-08-18 07:25] LABS: BUN/Creatinine Ratio 32.3 (8-20); Calcium 8.7 mg/dL (8.6-10.3); EGFR African American 49.3 (>60); EGFR Non-African American 40.7 (>60); Potassium 4.2 mmol/L (3.5-5.0)
[2019-08-18] MEDS: Mometasone/Formoter 200/5 MDI INH SCH ×2 (07:41→19:47)
[2019-08-18] MEDS: SPIRIVA Respimat* (tiotropium) 2.5 mcg/inh Inhaler INH SCH (07:42)
[2019-08-18] MEDS ORDERED: Metolazone TAB* 5 MG PO ONE (08:30)
--- NOTE | 2019-08-18 09:17 | PN ---
Subjective Date of Service: 08/18/19 Interval History: Pain somewhat improved. No SOB, cough. No new c/o. Objective Active Medications: Acetaminophen (Tylenol Tab*) 650 mg PO Q6H PRN PRN Reason: PAIN - MODERATE Last Admin: 08/18/19 03:56 Dose: 650 mg Albuterol/Ipratropium (Duoneb (Albuterol 2.5 Mg/Ipratropium 0.5 Mg)) 1 neb INH TID PRN PRN Reason: SOB/WHEEZING Artificial Tears (Natural Balance Tears Eye Drop) 1 drop BOTH EYES Q2H PRN PRN Reason: DRY EYE Last Admin: 08/17/19 20:48 Dose: 1 drop Calcium Polycarbophil (Fibercon Tab*) 625 mg PO BID [facility] Last Admin: 08/17/19 20:47 Dose: 625 mg Calcium/Vitamin D (Oscal D Tab 250/125*) 2 tab PO DAILY [facility] Cholecalciferol (Vitamin D Tab*) 800 unit PO DAILY [facility] Cyclobenzaprine HCl (Flexeril Tab*) 5 mg PO QPM PRN PRN Reason: SPASMS - MUSCLE Last Admin: 08/17/19 16:32 Dose: 5 mg Duloxetine HCl (Cymbalta Cap*) 20 mg PO DAILY [facility] Famotidine (Pepcid Tab*) 20 mg PO BID [facility] Last Admin: 08/17/19 20:47 Dose: 20 mg Ferrous Sulfate (Ferrous Sulfate Tab*) 325 mg PO DAILY [facility] Ceftriaxone Sodium 1 gm/ (Sodium Chloride) 50 mls @ 100 mls/hr IVPB Q24H [facility] Lactobacillus Rhamnosus (Lactobacillus Acidophilus*) 1 tab PO DAILY [facility] Levalbuterol HCl (Xopenex Hfa Inhaler*) 2 puff INH QID PRN PRN Reason: SHORTNESS OF BREATH Levothyroxine Sodium (Synthroid Tab*) 12.5 mcg PO 0600 [facility] Last Admin: 08/18/19 05:32 Dose: 12.5 mcg Lidocaine (Lidoderm 5% Patch*) 1 patch TRANSDERM DAILY [facility] Lorazepam (Ativan Tab(*)) 0.5 mg PO BID PRN PRN Reason: ANXIETY Lubiprostone (Amitiza (Nf)) 24 mcg PO BID [facility] Last Admin: 08/17/19 20:48 Dose: 24 mcg Magnesium Hydroxide (Milk Of Magnesia Liq*) 30 ml PO BID PRN PRN Reason: HEARTBURN Magnesium Oxide (Magox 400 Tab*) 400 mg PO BID [facility] Last Admin: 08/17/19 20:47 Dose: 400 mg Metoprolol Succinate (Toprol Xl Tab*) 25 mg PO DAILY [facility] Mometasone Furoate/Formoterol Fumar (Dulera 200/5 Mdi*) 2 puff INH BID [facility]; Protocol Last Admin: 08/18/19 07:41 Dose: 2 puff Multi-Ingredient Mouthwash/Gargle (Biotene Dry Mouth Oral Rinse(Nf)) 15 ml MT QID [facility] Last Admin: 08/17/19 20:49 Dose: 15 ml Nitroglycerin (Nitroglycerin Tab 0.4 Mg*) 0.4 mg SL Q5M PRN PRN Reason: ANGINA Olopatadine HCl (Patanol 0.1% Ophth (Nf)) 1 drop BOTH EYES BID [facility]; Protocol Last Admin: 08/17/19 21:12 Dose: 1 drop Ondansetron HCl (Zofran Tab*) 4 mg PO Q6H PRN PRN Reason: NAUSEA Oxycodone HCl (Roxycodone Tab*) 15 mg PO Q6H PRN PRN Reason: PAIN - SEVERE Last Admin: 08/18/19 04:00 Dose: 15 mg Pantoprazole Sodium (Protonix Tab*) 40 mg PO DAILY [facility] Pharmacy Profile Note (Coumadin Daily Reminder*) 1 note FOLLOW UP 1700 [facility] Pharmacy Profile Note (Lidocaine Patch Remove*) 1 note PATCH OFF 2100 [facility] Polyethylene Glycol/Electrolytes (Miralax (17 Gm Dose Emmett)) 17 gm PO DAILY PRN PRN Reason: CONSTIPATION Pregabalin (Lyrica 50 Mg Cap (*)) 50 mg PO BID [facility] Last Admin: 08/17/19 20:47 Dose: 50 mg Senna (Senokot 8.6 Mg Tab*) 1 tab PO BID [facility] Last Admin: 08/17/19 20:47 Dose: 1 tab Spironolactone (Aldactone Tab*) 25 mg PO DAILY [facility] Tiotropium [place] (Spiriva Respimat 2.5 Mcg) 2 puff INH DAILY [facility] Last Admin: 08/18/19 07:42 Dose: 2 puff Torsemide (Demadex*) 40 mg PO DAILY [facility] Trazodone HCl (Desyrel Tab*) 50 mg PO BEDTIME PRN PRN Reason: SLEEP Vital Signs - 8 hr 08/18/19 08/18/19 08/18/19 02:32 04:00 05:41 Temperature 97.1 F Pulse Rate 65 Respiratory 16 16 14 Rate Blood Pressure 107/45 (mmHg) O2 Sat by Pulse 92 Oximetry 08/18/19 08/18/19 07:15 07:45 Temperature 97.5 F Pulse Rate 63 Respiratory 17 17 Rate Blood Pressure 127/64 (mmHg) O2 Sat by Pulse 93 Oximetry Oxygen Devices in Use Now: None Appearance: Alert, partly up in bed. In fair spirits. Looks comfortable. Eyes: No Scleral Icterus Ears/Nose/Mouth/Throat: Clear Oropharnyx, Mucous Membranes Moist Respiratory: Symmetrical Chest Expansion and Respiratory Effort, Clear to Auscultation, Clear to Percussion Cardiovascular: NL Sounds; No Murmurs; No JVD, RRR, No Edema, - Extremities: No Clubbing, Cyanosis, - - 2+ edema BL. Skin lower legs wrinkled Skin: No Nodules or Sclerosis, - - diffuse erythema both legs to knees, somewhat improved c/w 2/. Neurological: Alert and Oriented x 3, NL Sensation Result Diagrams: 08/18/19 06:23 08/18/19 06:23 Assess/Plan/Problems-Billing Assessment: - Patient Problems (1) Cellulitis Current Visit: No Status: Acute Code(s): L03.90 - CELLULITIS, UNSPECIFIED SNOMED Code(s): 843959025 Comment: -Improved on 08/18 -Continue IV ceftriaxone (2) Leg edema Current Visit: No Status: Acute Code(s): R60.0 - LOCALIZED EDEMA SNOMED Code(s): 823242894 Comment: - chronic pedal edema, US negative for DVT 08/01. Improved as of 08/18. Continue torsemide, spironolactone. Daily weights. (3) Chronic leg pain Current Visit: No Status: Chronic Priority: Medium Code(s): M79.606 - PAIN IN LEG, UNSPECIFIED; G89.29 - OTHER CHRONIC PAIN SNOMED Code(s): 04491551 Comment: - Concurrent with hip and back pain - Continue oxycodone 15 mg q6h PRN, tylenol and pregabalin - PT/OT consults (4) Hypothyroidism Current Visit: No Status: Chronic Code(s): E03.9 - HYPOTHYROIDISM, UNSPECIFIED SNOMED Code(s): 66107236 Comment: - Continue current levothyroxine 12.5 mg daily - TSH 03/24/19 normal at 2.44 (5) A-fib Current Visit: No Status: Acute Code(s): I48.91 - UNSPECIFIED ATRIAL FIBRILLATION SNOMED Code(s): 74534472 Comment: - Continue metoprolol-XL 25 mg daily for rate control Received warfarin 3 mg on 08/17, start 2.5 mg daily 08/18, repeat INR in 2 days. (6) COPD (chronic obstructive pulmonary disease) Current Visit: No Status: Chronic Code(s): J44.9 - CHRONIC OBSTRUCTIVE PULMONARY DISEASE, UNSPECIFIED SNOMED Code(s): 56175534 Comment: - On continuous O2 at 2L - Continue mometasone/fpormoterol, albuterol, tiotropium. - Not in exacerbation (7) Thrombocytopenia Current Visit: Yes Status: Acute Code(s): D69.6 - THROMBOCYTOPENIA, UNSPECIFIED SNOMED Code(s): 910175828 Comment: Platelets increased to 182 on 08/18/19.
[2019-08-18] MEDS ORDERED: Albuterol 2.5 MG/3 ML NEB.SOL* (0.083%) INH PRN (09:24)
[2019-08-18] MEDS: Lidocaine PATCH 5%* 1 PATCH TRANSDERM SCH (10:17)
[2019-08-18] MEDS: Oral Rinse (Biotene)(NF) 237 ML or 473 ML ORAL RINSE BTL MT SCH ×4 (10:19→20:51)
[2019-08-18] MEDS: Dextran 70/Hypromellose Tears Eye Drops 15 ml BTL (for Artificials Tears) BOTH EYES PRN ×2 (10:19→20:55)
[2019-08-18] MEDS: CMCS: Lubiprostone 24 MCG CAP (NF) PO SCH ×2 (10:19→20:49)
[2019-08-18] MEDS: cefTRIAXone(*) 1 GM in NS 0.9% 50 ML* 50 ML IVPB SCH (10:19)
[2019-08-18] MEDS: Cholecalciferol TAB* 400 UNIT PO SCH (10:24)
[2019-08-18] MEDS: Calcium Polycarbophil TAB* 625 MG PO SCH ×2 (10:25→20:53)
[2019-08-18] MEDS: Lactobacillus Acidophilus* 1 TAB PO SCH (10:25)
[2019-08-18] MEDS: Magnesium Oxide TAB* 400 MG PO SCH ×2 (10:25→20:51)
[2019-08-18] MEDS: Metoprolol Succinate XL TAB* 25 MG PO SCH (10:26)
[2019-08-18] MEDS: Spironolactone TAB* 25 MG PO SCH (10:26)
[2019-08-18] MEDS: Senna TAB 8.6 mg* TAB PO SCH ×2 (10:26→20:54)
[2019-08-18] MEDS: Pantoprazole TAB * 40 MG TAB PO SCH (10:26)
[2019-08-18] MEDS: Torsemide TAB* 20 MG PO SCH (10:27)
[2019-08-18] MEDS: Calcium/Vitamin D TAB 250/125* TAB PO SCH (10:27)
[2019-08-18] MEDS: Famotidine TAB* 20 MG PO SCH ×2 (10:27→20:53)
[2019-08-18] MEDS: Pregabalin 50 mg CAP (*) PO SCH ×2 (10:29→20:54)
[2019-08-18] MEDS: DULoxetine DR CAP* 20 MG CAP.DR PO SCH (10:29)
[2019-08-18] MEDS: Ferrous Sulfate TAB* 325 MG PO SCH (10:29)
[2019-08-18] MEDS: Olopatadine 0.1% OPHTH (NF) 1 DROP BTL BOTH EYES SCH ×2 (10:30→22:29)
[2019-08-18] MEDS ORDERED: Warfarin TAB(*) 2.5 MG PO SCH (17:00)
[2019-08-18] MEDS: Magnesium Hydroxide LIQ* 30 ML UDC PO PRN (20:51)
[2019-08-18] MEDS: Lidocaine Patch REMOVE* 1 NOTE MISC PATCH OFF SCH (21:00)
[2019-08-19] MEDS: Levothyroxine TAB* 25 MCG TAB PO SCH (05:43)
[2019-08-19 06:10] LABS: INR 1.69 (0.82-1.09)
[2019-08-19] MEDS: Mometasone/Formoter 200/5 MDI INH SCH ×2 (08:12→21:11)
[2019-08-19] MEDS: SPIRIVA Respimat* (tiotropium) 2.5 mcg/inh Inhaler INH SCH (08:12)
[2019-08-19] MEDS: Metoprolol Succinate XL TAB* 25 MG PO SCH (08:34)
[2019-08-19] MEDS: CMCS: Lubiprostone 24 MCG CAP (NF) PO SCH ×2 (08:34→21:20)
[2019-08-19] MEDS: Ferrous Sulfate TAB* 325 MG PO SCH (08:34)
[2019-08-19] MEDS: oxyCODONE TAB* 5 MG TAB PO PRN ×2 (08:34→16:30)
[2019-08-19] MEDS: Spironolactone TAB* 25 MG PO SCH (08:34)
[2019-08-19] MEDS: Famotidine TAB* 20 MG PO SCH ×2 (08:35→21:24)
[2019-08-19] MEDS: Pregabalin 50 mg CAP (*) PO SCH ×2 (08:35→21:23)
[2019-08-19] MEDS: Torsemide TAB* 20 MG PO SCH (08:35)
[2019-08-19] MEDS: Senna TAB 8.6 mg* TAB PO SCH ×2 (08:35→21:24)
[2019-08-19] MEDS: Magnesium Oxide TAB* 400 MG PO SCH ×2 (08:35→21:22)
[2019-08-19] MEDS: Cholecalciferol TAB* 400 UNIT PO SCH (08:35)
[2019-08-19] MEDS: Calcium/Vitamin D TAB 250/125* TAB PO SCH (08:35)
[2019-08-19] MEDS: Calcium Polycarbophil TAB* 625 MG PO SCH ×2 (08:35→21:23)
[2019-08-19] MEDS: Lactobacillus Acidophilus* 1 TAB PO SCH (08:36)
[2019-08-19] MEDS: Oral Rinse (Biotene)(NF) 237 ML or 473 ML ORAL RINSE BTL MT SCH ×4 (08:36→21:21)
[2019-08-19] MEDS: Pantoprazole TAB * 40 MG TAB PO SCH (08:36)
[2019-08-19] MEDS: DULoxetine DR CAP* 20 MG CAP.DR PO SCH (08:36)
[2019-08-19] MEDS: Lidocaine PATCH 5%* 1 PATCH TRANSDERM SCH (08:42)
[2019-08-19] MEDS: Olopatadine 0.1% OPHTH (NF) 1 DROP BTL BOTH EYES SCH ×2 (08:44→21:28)
[2019-08-19] MEDS: cefTRIAXone(*) 1 GM in NS 0.9% 50 ML* 50 ML IVPB SCH (11:04)
--- NOTE | 2019-08-19 12:12 | PN ---
Subjective Date of Service: 08/19/19 Interval History: No subjective change. Objective Active Medications: Acetaminophen (Tylenol Tab*) 650 mg PO Q6H PRN PRN Reason: PAIN - MODERATE Last Admin: 08/18/19 13:15 Dose: 650 mg Albuterol (Ventolin 2.5 Mg/3 Ml Neb.Stacie*) 2.5 mg INH Q4H PRN PRN Reason: SOB/WHEEZING Artificial Tears (Natural Balance Tears Eye Drop) 1 drop BOTH EYES Q2H PRN PRN Reason: DRY EYE Last Admin: 08/18/19 20:55 Dose: 1 drop Calcium Polycarbophil (Fibercon Tab*) 625 mg PO BID [facility] Last Admin: 08/19/19 08:35 Dose: 625 mg Calcium/Vitamin D (Oscal D Tab 250/125*) 2 tab PO DAILY [facility] Last Admin: 08/19/19 08:35 Dose: 2 tab Cholecalciferol (Vitamin D Tab*) 800 unit PO DAILY [facility] Last Admin: 08/19/19 08:35 Dose: 800 unit Cyclobenzaprine HCl (Flexeril Tab*) 5 mg PO QPM PRN PRN Reason: SPASMS - MUSCLE Last Admin: 08/17/19 16:32 Dose: 5 mg Duloxetine HCl (Cymbalta Cap*) 20 mg PO DAILY [facility] Last Admin: 08/19/19 08:36 Dose: 20 mg Famotidine (Pepcid Tab*) 20 mg PO BID [facility] Last Admin: 08/19/19 08:35 Dose: 20 mg Ferrous Sulfate (Ferrous Sulfate Tab*) 325 mg PO DAILY [facility] Last Admin: 08/19/19 08:34 Dose: 325 mg Ceftriaxone Sodium 1 gm/ (Sodium Chloride) 50 mls @ 100 mls/hr IVPB Q24H [facility] Last Admin: 08/19/19 11:04 Dose: 100 mls/hr Lactobacillus Rhamnosus (Lactobacillus Acidophilus*) 1 tab PO DAILY [facility] Last Admin: 08/19/19 08:36 Dose: 1 tab Levalbuterol HCl (Xopenex Hfa Inhaler*) 2 puff INH QID PRN PRN Reason: SHORTNESS OF BREATH Levothyroxine Sodium (Synthroid Tab*) 12.5 mcg PO 0600 [facility] Last Admin: 08/19/19 05:43 Dose: 12.5 mcg Lidocaine (Lidoderm 5% Patch*) 1 patch TRANSDERM DAILY [facility] Last Admin: 08/19/19 08:42 Dose: 1 patch Lorazepam (Ativan Tab(*)) 0.5 mg PO BID PRN PRN Reason: ANXIETY Last Admin: 08/18/19 22:30 Dose: 0.5 mg Lubiprostone (Amitiza (Nf)) 24 mcg PO BID [facility] Last Admin: 08/19/19 08:34 Dose: 24 mcg Magnesium Hydroxide (Milk Of Magnesia Liq*) 30 ml PO BID PRN PRN Reason: HEARTBURN Last Admin: 08/18/19 20:51 Dose: 30 ml Magnesium Oxide (Magox 400 Tab*) 400 mg PO BID [facility] Last Admin: 08/19/19 08:35 Dose: 400 mg Metoprolol Succinate (Toprol Xl Tab*) 25 mg PO DAILY [facility] Last Admin: 08/19/19 08:34 Dose: 25 mg Mometasone Furoate/Formoterol Fumar (Dulera 200/5 Mdi*) 2 puff INH BID [facility]; Protocol Last Admin: 08/19/19 08:12 Dose: 2 puff Multi-Ingredient Mouthwash/Gargle (Biotene Dry Mouth Oral Rinse(Nf)) 15 ml MT QID [facility] Last Admin: 08/19/19 08:36 Dose: 15 ml Nitroglycerin (Nitroglycerin Tab 0.4 Mg*) 0.4 mg SL Q5M PRN PRN Reason: ANGINA Olopatadine HCl (Patanol 0.1% Ophth (Nf)) 1 drop BOTH EYES BID [facility]; Protocol Last Admin: 08/19/19 08:44 Dose: Not Given Ondansetron HCl (Zofran Tab*) 4 mg PO Q6H PRN PRN Reason: NAUSEA Oxycodone HCl (Roxycodone Tab*) 15 mg PO Q6H PRN PRN Reason: PAIN - SEVERE Last Admin: 08/19/19 08:34 Dose: 15 mg Pantoprazole Sodium (Protonix Tab*) 40 mg PO DAILY [facility] Last Admin: 08/19/19 08:36 Dose: 40 mg Pharmacy Profile Note (Coumadin Daily Reminder*) 1 note FOLLOW UP 1700 [facility] Last Admin: 08/18/19 17:34 Dose: 1 note Pharmacy Profile Note (Lidocaine Patch Remove*) 1 note PATCH OFF 2100 [facility] Last Admin: 08/18/19 21:00 Dose: 1 note Polyethylene Glycol/Electrolytes (Miralax (17 Gm Dose Emmett)) 17 gm PO DAILY PRN PRN Reason: CONSTIPATION Pregabalin (Lyrica 50 Mg Cap (*)) 50 mg PO BID [facility] Last Admin: 08/19/19 08:35 Dose: 50 mg Senna (Senokot 8.6 Mg Tab*) 1 tab PO BID [facility] Last Admin: 08/19/19 08:35 Dose: 1 tab Spironolactone (Aldactone Tab*) 25 mg PO DAILY [facility] Last Admin: 08/19/19 08:34 Dose: 25 mg Tiotropium [place] (Spiriva Respimat 2.5 Mcg) 2 puff INH DAILY [facility] Last Admin: 08/19/19 08:12 Dose: 2 puff Torsemide (Demadex*) 40 mg PO DAILY [facility] Last Admin: 08/19/19 08:35 Dose: 40 mg Trazodone HCl (Desyrel Tab*) 50 mg PO BEDTIME PRN PRN Reason: SLEEP Last Admin: 08/18/19 22:30 Dose: 50 mg Warfarin Sodium (Coumadin Tab(*)) 2.5 mg PO DAILY@1700 [facility]; Protocol Last Admin: 08/18/19 17:34 Dose: 2.5 mg Vital Signs - 8 hr 08/19/19 08/19/19 08/19/19 07:47 08:00 08:13 Temperature 98 F Pulse Rate 86 89 Respiratory 16 18 16 Rate Blood Pressure 104/59 (mmHg) O2 Sat by Pulse 95 98 Oximetry 08/19/19 08/19/19 08/19/19 08:34 08:35 10:50 Temperature Pulse Rate Respiratory 16 16 16 Rate Blood Pressure (mmHg) O2 Sat by Pulse Oximetry 08/19/19 08/19/19 11:28 11:45 Temperature 97.7 F Pulse Rate 77 Respiratory 16 16 Rate Blood Pressure 100/51 (mmHg) O2 Sat by Pulse 99 Oximetry Oxygen Devices in Use Now: None Appearance: Alert, sitting up in bed. In fair spirits. Looks comfortable. Eyes: No Scleral Icterus Skin: No Nodules or Sclerosis - Both lower legs red 2/3 toward knees, wrinkled, scaly. 1+ edema BL. Neurological: Alert and Oriented x 3, NL Sensation Result Diagrams: 08/18/19 06:23 08/18/19 06:23 Microbiology and Other Data: Microbiology 08/18/19 09:35 Gram Stain - Final Sputum Expectorated Assess/Plan/Problems-Billing Assessment: - Patient Problems (1) Cellulitis Current Visit: No Status: Acute Code(s): L03.90 - CELLULITIS, UNSPECIFIED SNOMED Code(s): 729921040 Comment: -Improved on 08/19 -Continue IV ceftriaxone (2) Leg edema Current Visit: No Status: Acute Code(s): R60.0 - LOCALIZED EDEMA SNOMED Code(s): 461260312 Comment: - chronic pedal edema, US negative for DVT 08/01. Improved as of 08/18. Continue torsemide, spironolactone. Daily weights. (3) Chronic leg pain Current Visit: No Status: Chronic Priority: Medium Code(s): M79.606 - PAIN IN LEG, UNSPECIFIED; G89.29 - OTHER CHRONIC PAIN SNOMED Code(s): 14971803 Comment: - Concurrent with hip and back pain - Continue oxycodone 15 mg q6h PRN, tylenol and pregabalin - Continue PT/OT (4) Hypothyroidism Current Visit: No Status: Chronic Code(s): E03.9 - HYPOTHYROIDISM, UNSPECIFIED SNOMED Code(s): 40231330 Comment: - Continue current levothyroxine 12.5 mg daily - TSH 03/24/19 normal at 2.44 (5) A-fib Current Visit: No Status: Acute Code(s): I48.91 - UNSPECIFIED ATRIAL FIBRILLATION SNOMED Code(s): 81471705 Comment: - Continue metoprolol-XL 25 mg daily for rate control Received warfarin 3 mg on 08/17, 2.5 mg on 08/18, started 3 mg daily on 08/19. Repeat INR approx 08/21. (6) COPD (chronic obstructive pulmonary disease) Current Visit: No Status: Chronic Code(s): J44.9 - CHRONIC OBSTRUCTIVE PULMONARY DISEASE, UNSPECIFIED SNOMED Code(s): 71632928 Comment: - On continuous O2 at 2L - Continue mometasone/formoterol, albuterol, tiotropium. - Not in exacerbation (7) Thrombocytopenia Current Visit: Yes Status: Acute Code(s): D69.6 - THROMBOCYTOPENIA, UNSPECIFIED SNOMED Code(s): 004131152 Comment: Platelets increased to 182 on 08/18/19.
[2019-08-19] MEDS: Dextran 70/Hypromellose Tears Eye Drops 15 ml BTL (for Artificials Tears) BOTH EYES PRN ×3 (13:33→21:24)
[2019-08-19] MEDS: Warfarin TAB(*) 3 MG PO SCH (16:30)
[2019-08-19] MEDS: Magnesium Hydroxide LIQ* 30 ML UDC PO PRN (21:20)
[2019-08-19] MEDS: Lidocaine Patch REMOVE* 1 NOTE MISC PATCH OFF SCH (21:28)
[2019-08-20] MEDS: Acetaminophen TAB* 325 MG PO PRN ×2 (03:47→20:41)
[2019-08-20] MEDS: Levothyroxine TAB* 25 MCG TAB PO SCH (05:42)
[2019-08-20 06:18] LABS: INR 1.57 (0.82-1.09)
[2019-08-20] MEDS: Mometasone/Formoter 200/5 MDI INH SCH ×2 (07:59→20:19)
[2019-08-20] MEDS: SPIRIVA Respimat* (tiotropium) 2.5 mcg/inh Inhaler INH SCH (07:59)
[2019-08-20] MEDS: Calcium Polycarbophil TAB* 625 MG PO SCH ×2 (08:20→20:37)
[2019-08-20] MEDS: Lactobacillus Acidophilus* 1 TAB PO SCH (08:20)
[2019-08-20] MEDS: Magnesium Oxide TAB* 400 MG PO SCH ×2 (08:20→20:45)
[2019-08-20] MEDS: Spironolactone TAB* 25 MG PO SCH (08:21)
[2019-08-20] MEDS: DULoxetine DR CAP* 20 MG CAP.DR PO SCH (08:21)
[2019-08-20] MEDS: Pantoprazole TAB * 40 MG TAB PO SCH (08:21)
[2019-08-20] MEDS: Ferrous Sulfate TAB* 325 MG PO SCH (08:21)
[2019-08-20] MEDS: Cholecalciferol TAB* 400 UNIT PO SCH (08:21)
[2019-08-20] MEDS: Torsemide TAB* 20 MG PO SCH (08:21)
[2019-08-20] MEDS: Pregabalin 50 mg CAP (*) PO SCH ×2 (08:21→20:38)
[2019-08-20] MEDS: Senna TAB 8.6 mg* TAB PO SCH ×2 (08:22→20:39)
[2019-08-20] MEDS: Calcium/Vitamin D TAB 250/125* TAB PO SCH (08:22)
[2019-08-20] MEDS: Famotidine TAB* 20 MG PO SCH ×2 (08:22→20:37)
[2019-08-20] MEDS: oxyCODONE TAB* 5 MG TAB PO PRN ×3 (08:27→20:39)
[2019-08-20] MEDS: Lidocaine PATCH 5%* 1 PATCH TRANSDERM SCH (08:28)
[2019-08-20] MEDS: CMCS: Lubiprostone 24 MCG CAP (NF) PO SCH ×2 (08:28→20:38)
[2019-08-20] MEDS: Metoprolol Succinate XL TAB* 25 MG PO SCH (08:33)
[2019-08-20] MEDS: Olopatadine 0.1% OPHTH (NF) 1 DROP BTL BOTH EYES SCH ×2 (08:33→20:45)
[2019-08-20] MEDS: Oral Rinse (Biotene)(NF) 237 ML or 473 ML ORAL RINSE BTL MT SCH ×4 (09:51→20:45)
[2019-08-20] MEDS: cefTRIAXone(*) 1 GM in NS 0.9% 50 ML* 50 ML IVPB SCH (11:23)
[2019-08-20] MEDS: Dextran 70/Hypromellose Tears Eye Drops 15 ml BTL (for Artificials Tears) BOTH EYES PRN ×2 (15:42→20:39)
--- NOTE | 2019-08-20 17:24 | PN ---
Subjective Date of Service: 08/20/19 Interval History: No acute events overnight. Afebrile. Pain in b/l legs from knees down. Does not think the erythema has improved much since admission. Missed an MRI on that Dr. Stauffer had ordered - not sure why. She did f/u with Orthopedic Oncologist in [place] back on 03/31/19 - told her they were not that concerned about the right iliac lesion findings of 03/22/19 and November 2018. Wanted her to return in 6 weeks but she did not. Has been following with the [facility] for recently opened wounds on b/l legs. Saw Dr. Snyder 07/02/19 and he referred her to lymphedema clinic and recommended compression stockings. 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 Objective Active Medications: Acetaminophen (Tylenol Tab*) 650 mg PO Q6H PRN PRN Reason: PAIN - MODERATE Last Admin: 08/20/19 03:47 Dose: 650 mg Albuterol (Ventolin 2.5 Mg/3 Ml Neb.Stacie*) 2.5 mg INH Q4H PRN PRN Reason: SOB/WHEEZING Artificial Tears (Natural Balance Tears Eye Drop) 1 drop BOTH EYES Q2H PRN PRN Reason: DRY EYE Last Admin: 08/20/19 15:42 Dose: 1 drop Calcium Polycarbophil (Fibercon Tab*) 625 mg PO BID [facility] Last Admin: 08/20/19 08:20 Dose: 625 mg Calcium/Vitamin D (Oscal D Tab 250/125*) 2 tab PO DAILY [facility] Last Admin: 08/20/19 08:22 Dose: 2 tab Cholecalciferol (Vitamin D Tab*) 800 unit PO DAILY [facility] Last Admin: 08/20/19 08:21 Dose: 800 unit Cyclobenzaprine HCl (Flexeril Tab*) 5 mg PO QPM PRN PRN Reason: SPASMS - MUSCLE Last Admin: 08/17/19 16:32 Dose: 5 mg Duloxetine HCl (Cymbalta Cap*) 20 mg PO DAILY [facility] Last Admin: 08/20/19 08:21 Dose: 20 mg Famotidine (Pepcid Tab*) 20 mg PO BID [facility] Last Admin: 08/20/19 08:22 Dose: 20 mg Ferrous Sulfate (Ferrous Sulfate Tab*) 325 mg PO DAILY [facility] Last Admin: 08/20/19 08:21 Dose: 325 mg Ceftriaxone Sodium 1 gm/ (Sodium Chloride) 50 mls @ 100 mls/hr IVPB Q24H [facility] Last Admin: 08/20/19 11:23 Dose: 100 mls/hr Lactobacillus Rhamnosus (Lactobacillus Acidophilus*) 1 tab PO DAILY [facility] Last Admin: 08/20/19 08:20 Dose: 1 tab Levalbuterol HCl (Xopenex Hfa Inhaler*) 2 puff INH QID PRN PRN Reason: SHORTNESS OF BREATH Levothyroxine Sodium (Synthroid Tab*) 12.5 mcg PO 0600 [facility] Last Admin: 08/20/19 05:42 Dose: 12.5 mcg Lidocaine (Lidoderm 5% Patch*) 1 patch TRANSDERM DAILY [facility] Last Admin: 08/20/19 08:28 Dose: 1 patch Lorazepam (Ativan Tab(*)) 0.5 mg PO BID PRN PRN Reason: ANXIETY Last Admin: 08/18/19 22:30 Dose: 0.5 mg Lubiprostone (Amitiza (Nf)) 24 mcg PO BID [facility] Last Admin: 08/20/19 08:28 Dose: 24 mcg Magnesium Hydroxide (Milk Of Magnelena Liq*) 30 ml PO BID PRN PRN Reason: HEARTBURN Last Admin: 08/19/19 21:20 Dose: 30 ml Magnesium Oxide (Magox 400 Tab*) 400 mg PO BID [facility] Last Admin: 08/20/19 08:20 Dose: 400 mg Metoprolol Succinate (Toprol Xl Tab*) 25 mg PO DAILY [facility] Last Admin: 08/20/19 08:33 Dose: Not Given Mometasone Furoate/Formoterol Fumar (Dulera 200/5 Mdi*) 2 puff INH BID [facility]; Protocol Last Admin: 08/20/19 07:59 Dose: 2 puff Multi-Ingredient Mouthwash/Gargle (Biotene Dry Mouth Oral Rinse(Nf)) 15 ml MT QID [facility] Last Admin: 08/20/19 14:34 Dose: Not Given Nitroglycerin (Nitroglycerin Tab 0.4 Mg*) 0.4 mg SL Q5M PRN PRN Reason: ANGINA Olopatadine HCl (Patanol 0.1% Ophth (Nf)) 1 drop BOTH EYES BID [facility]; Protocol Last Admin: 08/20/19 08:33 Dose: Not Given Ondansetron HCl (Zofran Tab*) 4 mg PO Q6H PRN PRN Reason: NAUSEA Oxycodone HCl (Roxycodone Tab*) 15 mg PO Q6H PRN PRN Reason: PAIN - SEVERE Last Admin: 08/20/19 15:37 Dose: 15 mg Pantoprazole Sodium (Protonix Tab*) 40 mg PO DAILY [facility] Last Admin: 08/20/19 08:21 Dose: 40 mg Pharmacy Profile Note (Coumadin Daily Reminder*) 1 note FOLLOW UP 1700 [facility] Last Admin: 08/19/19 16:30 Dose: 1 note Pharmacy Profile Note (Lidocaine Patch Remove*) 1 note PATCH OFF 2100 [facility] Last Admin: 08/19/19 21:28 Dose: 1 note Polyethylene Glycol/Electrolytes (Miralax (17 Gm Dose Emmett)) 17 gm PO DAILY PRN PRN Reason: CONSTIPATION Pregabalin (Lyrica 50 Mg Cap (*)) 50 mg PO BID [facility] Last Admin: 08/20/19 08:21 Dose: 50 mg Senna (Senokot 8.6 Mg Tab*) 1 tab PO BID [facility] Last Admin: 08/20/19 08:22 Dose: 1 tab Spironolactone (Aldactone Tab*) 25 mg PO DAILY [facility] Last Admin: 08/20/19 08:21 Dose: 25 mg Tiotropium [place] (Spiriva Respimat 2.5 Mcg) 2 puff INH DAILY [facility] Last Admin: 08/20/19 07:59 Dose: 2 puff Torsemide (Demadex*) 40 mg PO DAILY [facility] Last Admin: 08/20/19 08:21 Dose: 40 mg Trazodone HCl (Desyrel Tab*) 50 mg PO BEDTIME PRN PRN Reason: SLEEP Last Admin: 08/18/19 22:30 Dose: 50 mg Warfarin Sodium (Coumadin Tab(*)) 3 mg PO DAILY@1700 [facility]; Protocol Last Admin: 08/19/19 16:30 Dose: 3 mg Vital Signs - 8 hr 08/20/19 08/20/19 08/20/19 11:15 11:26 15:15 Temperature 98.3 F 97.7 F Pulse Rate 62 71 Respiratory 16 18 14 Rate Blood Pressure 92/44 107/48 (mmHg) O2 Sat by Pulse 97 99 Oximetry 08/20/19 15:37 Temperature Pulse Rate Respiratory 18 Rate Blood Pressure (mmHg) O2 Sat by Pulse Oximetry Oxygen Devices in Use Now: Nasal Cannula Appearance: NAD, sitting in chair. Eyes: No Scleral Icterus Ears/Nose/Mouth/Throat: NL Teeth, Lips, Gums Neck: NL Appearance and Movements; NL JVP Respiratory: Symmetrical Chest Expansion and Respiratory Effort, Clear to Auscultation Cardiovascular: NL Sounds; No Murmurs; No JVD Abdominal: NL Sounds; No Tenderness; No Distention Skin: - - anterior calves with erythema and warmth still bounded by marker. Neurological: Alert and Oriented x 3 Nutrition: Taking PO's Result Diagrams: 08/18/19 06:23 08/18/19 06:23 Additional Lab and Data: Laboratory Results - last 24 hr 08/20/19 08/20/19 08/20/19 05:53 05:53 05:53 INR (Anticoag Therapy) 1.57 H C-Reactive Protein 12.93 H B-Natriuretic Peptide 269 H Microbiology and Other Data: Microbiology 08/18/19 09:35 Sputum Expectorated Gram Stain - Final 08/18/19 09:35 Sputum Expectorated Sputum Culture - Final Pseudomonas Aeruginosa Normal Shyla Assess/Plan/Problems-Billing Assessment: 89 yo female PMH of CAD, Afib & DVT (November 2018) on Coumadin, Lymphadema with chronic nonhealing wounds, COPD with chronic hypoxic respiratory failure (2L), thrombocytopenia, severe OA with chronic hip and back pain p/w b/l leg pain, erythema and warmth. On CFTX. - Patient Problems (1) Cellulitis Current Visit: No Status: Acute Code(s): L03.90 - CELLULITIS, UNSPECIFIED SNOMED Code(s): 300043975 Comment: - Now s/p 3 days IV ceftriaxone. b/l rash has not progressed but patient does not think it has improved. CRP stable at 12, afebrile. Likely b/l chronic lymphadema playing a large role in the appearance. Given concurrent PSDA growing in the sputum will switch antibiotic to cefepime to better cover that. Does have a PCN and FQ hives allergy. Has history of MRSA leg cultures that were senstive to doxy and clinda. Consider ID and/or wound care consult on Thursday. (2) Acquired lymphedema of lower extremity Current Visit: Yes Status: Acute Code(s): I89.0 - LYMPHEDEMA, NOT ELSEWHERE CLASSIFIED SNOMED Code(s): 395379628 Comment: Has been following with the lymphedema clinic on the recommendation of Dr. Snyder. Has been using new compression "wraps" for last few weeks. (3) Thrombocytopenia Current Visit: Yes Status: Acute Code(s): D69.6 - THROMBOCYTOPENIA, UNSPECIFIED SNOMED Code(s): 859360668 Comment: Platelets increased to 182 on 08/18/19. (4) A-fib Current Visit: No Status: Acute Code(s): I48.91 - UNSPECIFIED ATRIAL FIBRILLATION SNOMED Code(s): 84893532 Comment: - Continue metoprolol-XL 25 mg daily for rate control Received warfarin 3 mg on 08/17, 2.5 mg on 08/18, 3 mg daily on 08/19. Plan 4 mg today Repeat INR daily. (5) Chronic left hip pain Current Visit: No Status: Acute Code(s): M25.552 - PAIN IN LEFT HIP; G89.29 - OTHER CHRONIC PAIN SNOMED Code(s): 11021836 Comment: - Continue pain control with oxy - continue PT (6) Diastolic CHF Current Visit: No Status: Acute Code(s): I50.30 - UNSPECIFIED DIASTOLIC ( CONGESTIVE) HEART FAILURE SNOMED Code(s): 774059216 Comment: - chronic stable in No acute exacerbation - Continue home torsemide 40 mg and aldactone 25 mg daily - Last echo 07/17/1811/28/2018 EF 55% and evidence of diastolic dysfunction. RVSP 53mmHg (7) Subtherapeutic international normalized ratio (INR) Current Visit: No Status: Acute Code(s): R79.1 - ABNORMAL COAGULATION PROFILE SNOMED Code(s): 849052341 Comment: INR downtrending, currently 1.57. Goal 2-3 for pAfib. increased dose to 4mg daily from 3mg daily (8) Chronic leg pain Current Visit: No Status: Chronic Priority: Medium Code(s): M79.606 - PAIN IN LEG, UNSPECIFIED; G89.29 - OTHER CHRONIC PAIN SNOMED Code(s): 58195570 Comment: - Concurrent with hip and back pain - Continue oxycodone 15 mg q6h PRN (home is 10mg q6h prn), tylenol and pregabalin - Continue PT/OT, rec skilled PT. (9) Leg edema Current Visit: No Status: Acute Code(s): R60.0 - LOCALIZED EDEMA SNOMED Code(s): 471548238 Comment: - chronic pedal edema, US negative for DVT 08/08/19. Improved as of 08/18. Continue torsemide, spironolactone. Daily weights. BNP checked (269) down from previous levels Status and Disposition: medicine inpatient. Likely would benefit from SNF given pain with ambulation.
[2019-08-20] MEDS: Warfarin TAB(*) 3 MG PO SCH (17:48)
[2019-08-20] MEDS ORDERED: Warfarin TAB(*) 4 MG PO SCH (18:00)
[2019-08-20] MEDS: Cefepime 2 GM in Dextrose(*) 2 GM/50 ML BAG IV SCH (20:31)
[2019-08-20] MEDS: Lidocaine Patch REMOVE* 1 NOTE MISC PATCH OFF SCH (20:38)
[2019-08-20] MEDS: Cyclobenzaprine TAB* 10 MG PO PRN (20:41)
[2019-08-21] MEDS: oxyCODONE TAB* 5 MG TAB PO PRN ×3 (02:59→19:58)
[2019-08-21 05:27] LABS: INR 1.41 (0.82-1.09)
[2019-08-21] MEDS: Levothyroxine TAB* 25 MCG TAB PO SCH (05:32)
[2019-08-21] MEDS: SPIRIVA Respimat* (tiotropium) 2.5 mcg/inh Inhaler INH SCH (07:53)
[2019-08-21] MEDS: Mometasone/Formoter 200/5 MDI INH SCH ×2 (07:54→19:57)
[2019-08-21] MEDS: Cholecalciferol TAB* 400 UNIT PO SCH (08:17)
[2019-08-21] MEDS: Lidocaine PATCH 5%* 1 PATCH TRANSDERM SCH (08:17)
[2019-08-21] MEDS: Pantoprazole TAB * 40 MG TAB PO SCH (08:17)
[2019-08-21] MEDS: Cefepime 2 GM in Dextrose(*) 2 GM/50 ML BAG IV SCH ×2 (08:17→19:08)
[2019-08-21] MEDS: CMCS: Lubiprostone 24 MCG CAP (NF) PO SCH ×2 (08:17→19:56)
[2019-08-21] MEDS: Pregabalin 50 mg CAP (*) PO SCH ×2 (08:18→19:57)
[2019-08-21] MEDS: Ferrous Sulfate TAB* 325 MG PO SCH (08:18)
[2019-08-21] MEDS: Calcium Polycarbophil TAB* 625 MG PO SCH ×2 (08:18→19:56)
[2019-08-21] MEDS: Lactobacillus Acidophilus* 1 TAB PO SCH (08:18)
[2019-08-21] MEDS: Senna TAB 8.6 mg* TAB PO SCH ×2 (08:18→19:57)
[2019-08-21] MEDS: Torsemide TAB* 20 MG PO SCH (08:18)
[2019-08-21] MEDS: Calcium/Vitamin D TAB 250/125* TAB PO SCH (08:18)
[2019-08-21] MEDS: Magnesium Oxide TAB* 400 MG PO SCH ×2 (08:18→19:57)
[2019-08-21] MEDS: Spironolactone TAB* 25 MG PO SCH (08:19)
[2019-08-21] MEDS: DULoxetine DR CAP* 20 MG CAP.DR PO SCH (08:19)
[2019-08-21] MEDS: Famotidine TAB* 20 MG PO SCH ×2 (08:19→19:56)
[2019-08-21] MEDS: Metoprolol Succinate XL TAB* 25 MG PO SCH (08:19)
[2019-08-21] MEDS: Dextran 70/Hypromellose Tears Eye Drops 15 ml BTL (for Artificials Tears) BOTH EYES PRN ×2 (08:24→09:54)
[2019-08-21] MEDS: Oral Rinse (Biotene)(NF) 237 ML or 473 ML ORAL RINSE BTL MT SCH ×4 (08:24→20:07)
[2019-08-21] MEDS: Olopatadine 0.1% OPHTH (NF) 1 DROP BTL BOTH EYES SCH ×2 (09:54→20:06)
--- NOTE | 2019-08-21 15:48 | PN ---
Subjective Date of Service: 08/21/19 Interval History: No acute events overnight. Afebrile. Thinks legs are a bit less painful today. Some SOB and coughing continue. No chest pain, abdominal pain, HOOK, n/v. Eating and sleeping okay. Objective Active Medications: Acetaminophen (Tylenol Tab*) 650 mg PO Q6H PRN PRN Reason: PAIN - MODERATE Last Admin: 08/20/19 20:41 Dose: 650 mg Albuterol (Ventolin 2.5 Mg/3 Ml Neb.Stacie*) 2.5 mg INH Q4H PRN PRN Reason: SOB/WHEEZING Artificial Tears (Natural Balance Tears Eye Drop) 1 drop BOTH EYES Q2H PRN PRN Reason: DRY EYE Last Admin: 08/21/19 09:54 Dose: 1 drop Calcium Polycarbophil (Fibercon Tab*) 625 mg PO BID [facility] Last Admin: 08/21/19 08:18 Dose: 625 mg Calcium/Vitamin D (Oscal D Tab 250/125*) 2 tab PO DAILY [facility] Last Admin: 08/21/19 08:18 Dose: 2 tab Cholecalciferol (Vitamin D Tab*) 800 unit PO DAILY [facility] Last Admin: 08/21/19 08:17 Dose: 800 unit Cyclobenzaprine HCl (Flexeril Tab*) 5 mg PO QPM PRN PRN Reason: SPASMS - MUSCLE Last Admin: 08/20/19 20:41 Dose: 5 mg Duloxetine HCl (Cymbalta Cap*) 20 mg PO DAILY [facility] Last Admin: 08/21/19 08:19 Dose: 20 mg Famotidine (Pepcid Tab*) 20 mg PO BID [facility] Last Admin: 08/21/19 08:19 Dose: 20 mg Ferrous Sulfate (Ferrous Sulfate Tab*) 325 mg PO DAILY [facility] Last Admin: 08/21/19 08:18 Dose: 325 mg Cefepime HCl (Maxipime 2 Gm In Dextrose Duplex (*)) 2 gm in 50 mls @ 100 mls/ hr IV Q12H [facility] Last Admin: 08/21/19 08:17 Dose: 100 mls/hr Lactobacillus Rhamnosus (Lactobacillus Acidophilus*) 1 tab PO DAILY [facility] Last Admin: 08/21/19 08:18 Dose: 1 tab Levalbuterol HCl (Xopenex Hfa Inhaler*) 2 puff INH QID PRN PRN Reason: SHORTNESS OF BREATH Levothyroxine Sodium (Synthroid Tab*) 12.5 mcg PO 0600 [facility] Last Admin: 08/21/19 05:32 Dose: 12.5 mcg Lidocaine (Lidoderm 5% Patch*) 1 patch TRANSDERM DAILY [facility] Last Admin: 08/21/19 08:17 Dose: 1 patch Lorazepam (Ativan Tab(*)) 0.5 mg PO BID PRN PRN Reason: ANXIETY Last Admin: 08/18/19 22:30 Dose: 0.5 mg Lubiprostone (Amitiza (Nf)) 24 mcg PO BID [facility] Last Admin: 08/21/19 08:17 Dose: 24 mcg Magnesium Hydroxide (Milk Of Magnesia Liq*) 30 ml PO BID PRN PRN Reason: HEARTBURN Last Admin: 08/19/19 21:20 Dose: 30 ml Magnesium Oxide (Magox 400 Tab*) 400 mg PO BID [facility] Last Admin: 08/21/19 08:18 Dose: 400 mg Metoprolol Succinate (Toprol Xl Tab*) 25 mg PO DAILY [facility] Last Admin: 08/21/19 08:19 Dose: 25 mg Mometasone Furoate/Formoterol Fumar (Dulera 200/5 Mdi*) 2 puff INH BID [facility]; Protocol Last Admin: 08/21/19 07:54 Dose: 2 puff Multi-Ingredient Mouthwash/Gargle (Biotene Dry Mouth Oral Rinse(Nf)) 15 ml MT QID [facility] Last Admin: 08/21/19 12:51 Dose: 15 ml Nitroglycerin (Nitroglycerin Tab 0.4 Mg*) 0.4 mg SL Q5M PRN PRN Reason: ANGINA Olopatadine HCl (Patanol 0.1% Ophth (Nf)) 1 drop BOTH EYES BID [facility]; Protocol Last Admin: 08/21/19 09:54 Dose: Not Given Ondansetron HCl (Zofran Tab*) 4 mg PO Q6H PRN PRN Reason: NAUSEA Oxycodone HCl (Roxycodone Tab*) 15 mg PO Q6H PRN PRN Reason: PAIN - SEVERE Last Admin: 08/21/19 09:29 Dose: 15 mg Pantoprazole Sodium (Protonix Tab*) 40 mg PO DAILY [facility] Last Admin: 08/21/19 08:17 Dose: 40 mg Pharmacy Profile Note (Coumadin Daily Reminder*) 1 note FOLLOW UP 1700 [facility] Last Admin: 08/20/19 17:47 Dose: 1 note Pharmacy Profile Note (Lidocaine Patch Remove*) 1 note PATCH OFF 2100 [facility] Last Admin: 08/20/19 20:38 Dose: 1 note Polyethylene Glycol/Electrolytes (Miralax (17 Gm Dose Emmett)) 17 gm PO DAILY PRN PRN Reason: CONSTIPATION Pregabalin (Lyrica 50 Mg Cap (*)) 50 mg PO BID [facility] Last Admin: 08/21/19 08:18 Dose: 50 mg Senna (Senokot 8.6 Mg Tab*) 1 tab PO BID [facility] Last Admin: 08/21/19 08:18 Dose: 1 tab Spironolactone (Aldactone Tab*) 25 mg PO DAILY [facility] Last Admin: 08/21/19 08:19 Dose: 25 mg Tiotropium [place] (Spiriva Respimat 2.5 Mcg) 2 puff INH DAILY [facility] Last Admin: 08/21/19 07:53 Dose: 2 puff Torsemide (Demadex*) 40 mg PO DAILY [facility] Last Admin: 08/21/19 08:18 Dose: 40 mg Trazodone HCl (Desyrel Tab*) 50 mg PO BEDTIME PRN PRN Reason: SLEEP Last Admin: 08/18/19 22:30 Dose: 50 mg Warfarin Sodium (Coumadin Tab(*)) 5 mg PO DAILY@1700 [facility]; Protocol Vital Signs - 8 hr 08/21/19 08/21/19 08/21/19 07:54 08:00 08:18 Temperature Pulse Rate 74 Respiratory 18 16 16 Rate Blood Pressure (mmHg) O2 Sat by Pulse 95 Oximetry 08/21/19 08/21/19 08/21/19 09:29 09:55 11:15 Temperature 97.3 F Pulse Rate 62 Respiratory 16 16 18 Rate Blood Pressure 115/60 (mmHg) O2 Sat by Pulse 97 Oximetry 08/21/19 08/21/19 12:34 15:15 Temperature 97.8 F Pulse Rate 59 Respiratory 18 18 Rate Blood Pressure 110/47 (mmHg) O2 Sat by Pulse 100 Oximetry Oxygen Devices in Use Now: Nasal Cannula Appearance: NAD, sitting in chair. Eyes: No Scleral Icterus Ears/Nose/Mouth/Throat: NL Teeth, Lips, Gums Neck: NL Appearance and Movements; NL JVP Respiratory: - - slight rhonchi right mid lung field, no wheezing or rales. Cardiovascular: - - irregularly irregular, no m/r/g Extremities: - - trace edema L>R Skin: - - erythema less intense in anterior left lower leg and no longer warm. Still slight warmth with erythema in anterior right lower leg. Nutrition: Taking PO's Result Diagrams: 08/18/19 06:23 08/18/19 06:23 Additional Lab and Data: Laboratory Results - last 24 hr 08/20/19 08/21/19 05:53 04:47 INR (Anticoag Therapy) 1.41 H C-Reactive Protein 12.93 H Microbiology and Other Data: Microbiology 08/18/19 09:35 Sputum Expectorated Gram Stain - Final 08/18/19 09:35 Sputum Expectorated Sputum Culture - Final Pseudomonas Aeruginosa Normal Shyla Assess/Plan/Problems-Billing Assessment: 89 yo female PMH of CAD, Afib & DVT (November 2018) on Coumadin, Lymphadema with chronic nonhealing wounds (though had cleared recently), COPD with chronic hypoxic respiratory failure (2L), thrombocytopenia, severe OA with chronic hip and back pain p/w b/l leg pain, erythema and warmth. s/p 3 days CFTX and now 2nd day cefepimne (PSDA on sputum cx). - Patient Problems (1) Cellulitis Current Visit: No Status: Acute Code(s): L03.90 - CELLULITIS, UNSPECIFIED SNOMED Code(s): 125851920 Comment: - s/p 3 days IV ceftriaxone through 08/20. b/l rash had not progressed but patient did not think it had improved. CRP stable at 12, afebrile. Likely b/l chronic lymphadema playing a large role in the appearance. Given concurrent PSDA growing in the sputum was switched antibiotic to cefepime to better cover that starting 8 PM. Does have a PCN and FQ hives allergy. Some improvement in subjective pain level and exam in left leg. right only slightly better Has history of MRSA leg cultures that were senstive to doxy and clinda. Consider ID and/or wound care consult on Thursday. (2) Acquired lymphedema of lower extremity Current Visit: Yes Status: Acute Code(s): I89.0 - LYMPHEDEMA, NOT ELSEWHERE CLASSIFIED SNOMED Code(s): 787279826 Comment: Has been following with the lymphedema clinic on the recommendation of Dr. Snyder. Has been using new compression "wraps" for last few weeks. (3) Thrombocytopenia Current Visit: Yes Status: Acute Code(s): D69.6 - THROMBOCYTOPENIA, UNSPECIFIED SNOMED Code(s): 306390705 Comment: Platelets increased to 182 on 08/18/19. (4) A-fib Current Visit: No Status: Acute Code(s): I48.91 - UNSPECIFIED ATRIAL FIBRILLATION SNOMED Code(s): 38567036 Comment: - Continue metoprolol-XL 25 mg daily for rate control Received warfarin: 3 mg 2 2.5 mg 26 3 mg 2 4 mg 08/20. INR down to 1.41. Plan 5mg today. Repeat INR daily. (5) Chronic left hip pain Current Visit: No Status: Acute Code(s): M25.552 - PAIN IN LEFT HIP; G89.29 - OTHER CHRONIC PAIN SNOMED Code(s): 13296182 Comment: - Continue pain control with oxy - continue PT (6) Diastolic CHF Current Visit: No Status: Acute Code(s): I50.30 - UNSPECIFIED DIASTOLIC ( CONGESTIVE) HEART FAILURE SNOMED Code(s): 394978784 Comment: - chronic stable in No acute exacerbation - Continue home torsemide 40 mg and aldactone 25 mg daily - Last echo 07/17/1811/28/2018 EF 55% and evidence of diastolic dysfunction. RVSP 53mmHg (7) Subtherapeutic international normalized ratio (INR) Current Visit: No Status: Acute Code(s): R79.1 - ABNORMAL COAGULATION PROFILE SNOMED Code(s): 406562802 Comment: INR downtrending, currently 1.41. Goal 2-3 for pAfib. increased dose to 5mg daily (8) Chronic leg pain Current Visit: No Status: Chronic Priority: Medium Code(s): M79.606 - PAIN IN LEG, UNSPECIFIED; G89.29 - OTHER CHRONIC PAIN SNOMED Code(s): 63221928 Comment: - Concurrent with hip and back pain - Continue oxycodone 15 mg q6h PRN (home is 10mg q6h prn), tylenol and pregabalin - Continue PT/OT, rec skilled PT. (9) Leg edema Current Visit: No Status: Acute Code(s): R60.0 - LOCALIZED EDEMA SNOMED Code(s): 277304774 Comment: - chronic pedal edema, US negative for DVT 08/08/19. Improved as of 08/18. Continue torsemide, spironolactone. Daily weights. BNP checked (269) down from previous levels Status and Disposition: medicine inpatient. Likely would benefit from SNF given significant pain with ambulation, lives alone.
[2019-08-21] MEDS: Warfarin TAB(*) 5 MG PO SCH (16:52)
[2019-08-21] MEDS: Lidocaine Patch REMOVE* 1 NOTE MISC PATCH OFF SCH (20:06)
[2019-08-22] MEDS: oxyCODONE TAB* 5 MG TAB PO PRN ×3 (03:24→22:09)
[2019-08-22] MEDS: Levothyroxine TAB* 25 MCG TAB PO SCH (06:08)
[2019-08-22 06:46] LABS: ABS Eosinophils 0.1 10^3/ul (0-0.6); ABS Lymphocytes 1.1 10^3/ul (1.0-4.8); ABS Monocytes 0.4 10^3/ul (0-0.8); ABS Neutrophils 2.7 10^3/ul (1.5-7.7); Eosinophil % 2.8 %; Hematocrit 36 % (35-47); Lymphocyte % 24.7 %; Mean Corpuscular HGB Conc 33 g/dL (31-36); Mean Corpuscular Hemoglobin 32 pg (27-31); Mean Corpuscular Volume 96 fL (80-97); Mean Platelet Volume 8.6 fL (7.4-10.4); Platelet Count 156 10^3/uL (150-450); Red Blood Count 3.75 10^6 /uL (3.70-4.87); Red Cell Distribution Width 14 % (10-15); White Blood Count 4.3 10^3/uL (3.5-10.8)
[2019-08-22 07:05] LABS: INR 1.54 (0.82-1.09)
[2019-08-22 07:11] LABS: BUN/Creatinine Ratio 50.3 (8-20); Calcium 8.7 mg/dL (8.6-10.3); EGFR African American 39.9 (>60); Potassium 4.1 mmol/L (3.5-5.0)
[2019-08-22] MEDS: SPIRIVA Respimat* (tiotropium) 2.5 mcg/inh Inhaler INH SCH (08:04)
[2019-08-22] MEDS: Mometasone/Formoter 200/5 MDI INH SCH ×2 (08:05→19:23)
[2019-08-22] MEDS: Cefepime 2 GM in Dextrose(*) 2 GM/50 ML BAG IV SCH (08:36)
[2019-08-22] MEDS: Magnesium Oxide TAB* 400 MG PO SCH ×2 (09:32→20:16)
[2019-08-22] MEDS: Calcium Polycarbophil TAB* 625 MG PO SCH ×2 (09:32→20:15)
[2019-08-22] MEDS: Cholecalciferol TAB* 400 UNIT PO SCH (09:32)
[2019-08-22] MEDS: Metoprolol Succinate XL TAB* 25 MG PO SCH (09:33)
[2019-08-22] MEDS: CMCS: Lubiprostone 24 MCG CAP (NF) PO SCH ×2 (09:33→20:16)
[2019-08-22] MEDS: Famotidine TAB* 20 MG PO SCH ×2 (09:33→20:16)
[2019-08-22] MEDS: DULoxetine DR CAP* 20 MG CAP.DR PO SCH (09:33)
[2019-08-22] MEDS: Lactobacillus Acidophilus* 1 TAB PO SCH (09:33)
[2019-08-22] MEDS: Senna TAB 8.6 mg* TAB PO SCH ×2 (09:34→20:17)
[2019-08-22] MEDS: Pregabalin 50 mg CAP (*) PO SCH ×2 (09:34→20:16)
[2019-08-22] MEDS: Ferrous Sulfate TAB* 325 MG PO SCH (09:34)
[2019-08-22] MEDS: Pantoprazole TAB * 40 MG TAB PO SCH (09:34)
[2019-08-22] MEDS: Spironolactone TAB* 25 MG PO SCH (09:35)
[2019-08-22] MEDS: Calcium/Vitamin D TAB 250/125* TAB PO SCH (09:35)
[2019-08-22] MEDS: Oral Rinse (Biotene)(NF) 237 ML or 473 ML ORAL RINSE BTL MT SCH ×4 (09:36→20:17)
[2019-08-22] MEDS: Lidocaine PATCH 5%* 1 PATCH TRANSDERM SCH (09:38)
[2019-08-22] MEDS: Torsemide TAB* 20 MG PO SCH (09:38)
[2019-08-22] MEDS: Olopatadine 0.1% OPHTH (NF) 1 DROP BTL BOTH EYES SCH ×3 (09:48→20:21)
--- NOTE | 2019-08-22 14:44 | CONS ---
CONSULTATION REPORT: DATE OF CONSULT: 08/22/19 REQUESTING PHYSICIAN: Dr. Polk. CONSULTING SERVICE: Infectious Disease. REASON FOR CONSULT: Swelling and erythema both legs. IMPRESSION: 1. Bilateral lower extremity venous stasis with bilateral stasis dermatitis. She does not have cellulitis. 2. Venous insufficiency. 3. Chronic obstructive pulmonary disease with supplemental oxygen use. Could have some component of right heart failure contributing to her leg swelling. 4. History of deep vein thrombosis. RECOMMENDATIONS: Stop ceftriaxone. Focus on elevation of the legs, mild compression. Eucerin for moisturizing. HISTORY OF PRESENT ILLNESS: An 89-year-old woman with venous insufficiency and leg swelling, which is chronic, admitted with leg swelling and fatigue. She has been more tired at home, more short of breath. She uses supplemental oxygen at night, has felt more comfortable here with 24x7 oxygen supplementation. She had also had pain in both legs, has been on her feet more the last couple of weeks, doing more chores around the house. Her initial white blood cell count was 4, her CRP was 12. She has had no fever. She was started on ceftriaxone. The redness is about the same in her legs, but the pain has improved since she has been keeping them elevated 24x7 since she has been here. The swelling has gone down that she notices. She does not have any calf pain or tenderness. Chest x-ray here showed changes to her COPD, interstitial markings. PAST MEDICAL HISTORY: 1. Thrombocytopenia. 2. Atrial fibrillation. 3. Peripheral neuropathy. 4. Asthma. 5. Lymphedema. 6. Chronic obstructive pulmonary disease with supplemental oxygen use at home. 7. History of pneumonia. 8. Chronic kidney disease. 9. Osteoarthritis. 10. Anemia. 11. Coronary artery disease. 12. Tuberculosis treated in 1994. 13. Gastroesophageal reflux disease. 14. Peptic ulcer disease. 15. Congestive heart failure. 16. DVT in November 2018. 17. Hyperlipidemia. 18. Hypertension. 19. Valvular heart disease with tricuspid regurgitation. 20. Anxiety and depression. 21. Status post cholecystectomy. 22. Status post partial gastrectomy. 23. Status post hysterectomy. 24. Status post lumbar laminectomy. 25. Status post cataract extraction. 26. Status post left breast lumpectomy. 27. Status post partial thyroidectomy. 28. Status post appendectomy. 29. Status post tonsillectomy. MEDICATIONS: 1. Cefepime twice a day. 2. Tylenol. 3. Albuterol. 4. Calcium. 5. Vitamin D. 6. Cholecalciferol. 7. Duloxetine. 8. Famotidine. 9. Ferrous sulfate. 10. Lactobacillus. 11. Levalbuterol. 12. Levothyroxine. 13. Lidocaine patch. 14. Lorazepam as needed. 15. Lubiprostone. 16. Metoprolol. 17. Magnesium. 18. Nitroglycerin as needed. 19. Zofran as needed. 20. Pantoprazole. 21. Pregabalin. 22. Senna. 23. Spironolactone. 24. Spiriva. 25. Torsemide. 26. Trazodone. 27. Warfarin. ALLERGIES: FENTANYL, BACTRIM, CIPRO, CODEINE, and PENICILLIN. FAMILY HISTORY: No recurrent infections. SOCIAL HISTORY: She lives in [place], lives by herself. She is a past smoker, occasional alcohol use. REVIEW OF SYSTEMS: All negative except as noted above to 12-point review. PHYSICAL EXAM: Vital Signs: Temperature 36.7, heart rate 60, respiratory rate 12, blood pressure 110/52, oxygen saturation 95% on 2 L by nasal cannula. In general, she is awake, not in distress. Neurologic: She is oriented x3, follows all commands. HEENT: There is no conjunctival hemorrhage. Oropharynx without lesions. Neck is supple without mass. Heart: Regular rate and rhythm without murmurs, rubs, or gallops. Lungs are clear to auscultation bilaterally. Abdomen: Soft, nontender, and nondistended. There are bowel sounds present. Musculoskeletal: Bilateral lower extremity trace nonpitting edema with diffuse patch of erythema from below the knee to ankle on both legs which is blanching in some areas, nonblanching in others; no tenderness to palpation, no fluctuance. DIAGNOSTIC STUDIES/LAB DATA: Creatinine 1.4, white blood cell count 4, hemoglobin 12, platelets 156. Please see please impression and recommendations outlined above. Thank you for asking me to see Ms. Saldana in consultation. [id number]/[facility] #: [id number] MTDD
[2019-08-22] MEDS: Warfarin TAB(*) 5 MG PO SCH (16:29)
--- NOTE | 2019-08-22 19:31 | PN ---
Subjective Date of Service: 08/22/19 Interval History: Pt is feeling ok. She was seen by ID today. Unlikely pt has bilateral cellulitis and more likely stasis dermatitis. She initially told case managemetn she wanted to go to [facility] for rehab but now tells me she did not like it there. Objective Active Medications: Acetaminophen (Tylenol Tab*) 650 mg PO Q6H PRN PRN Reason: PAIN - MODERATE Last Admin: 08/20/19 20:41 Dose: 650 mg Albuterol (Ventolin 2.5 Mg/3 Ml Neb.Stacie*) 2.5 mg INH Q4H PRN PRN Reason: SOB/WHEEZING Artificial Tears (Natural Balance Tears Eye Drop) 1 drop BOTH EYES Q2H PRN PRN Reason: DRY EYE Last Admin: 08/21/19 09:54 Dose: 1 drop Calcium Polycarbophil (Fibercon Tab*) 625 mg PO BID [facility] Last Admin: 08/22/19 09:32 Dose: 625 mg Calcium/Vitamin D (Oscal D Tab 250/125*) 2 tab PO DAILY [facility] Last Admin: 08/22/19 09:35 Dose: 2 tab Cholecalciferol (Vitamin D Tab*) 800 unit PO DAILY [facility] Last Admin: 08/22/19 09:32 Dose: 800 unit Cyclobenzaprine HCl (Flexeril Tab*) 5 mg PO QPM PRN PRN Reason: SPASMS - MUSCLE Last Admin: 08/20/19 20:41 Dose: 5 mg Duloxetine HCl (Cymbalta Cap*) 20 mg PO DAILY [facility] Last Admin: 08/22/19 09:33 Dose: 20 mg Famotidine (Pepcid Tab*) 20 mg PO BID [facility] Last Admin: 08/22/19 09:33 Dose: 20 mg Ferrous Sulfate (Ferrous Sulfate Tab*) 325 mg PO DAILY [facility] Last Admin: 08/22/19 09:34 Dose: 325 mg Lactobacillus Rhamnosus (Lactobacillus Acidophilus*) 1 tab PO DAILY [facility] Last Admin: 08/22/19 09:33 Dose: 1 tab Levalbuterol HCl (Xopenex Hfa Inhaler*) 2 puff INH QID PRN PRN Reason: SHORTNESS OF BREATH Levothyroxine Sodium (Synthroid Tab*) 12.5 mcg PO 0600 [facility] Last Admin: 08/22/19 06:08 Dose: 12.5 mcg Lidocaine (Lidoderm 5% Patch*) 1 patch TRANSDERM DAILY [facility] Last Admin: 08/22/19 09:38 Dose: 1 patch Lorazepam (Ativan Tab(*)) 0.5 mg PO BID PRN PRN Reason: ANXIETY Last Admin: 08/18/19 22:30 Dose: 0.5 mg Lubiprostone (Amitiza (Nf)) 24 mcg PO BID [facility] Last Admin: 08/22/19 09:33 Dose: 24 mcg Magnesium Hydroxide (Milk Of Magnesia Liq*) 30 ml PO BID PRN PRN Reason: HEARTBURN Last Admin: 08/19/19 21:20 Dose: 30 ml Magnesium Oxide (Magox 400 Tab*) 400 mg PO BID [facility] Last Admin: 08/22/19 09:32 Dose: 400 mg Metoprolol Succinate (Toprol Xl Tab*) 25 mg PO DAILY [facility] Last Admin: 08/22/19 09:33 Dose: 25 mg Mometasone Furoate/Formoterol Fumar (Dulera 200/5 Mdi*) 2 puff INH BID [facility]; Protocol Last Admin: 08/22/19 19:23 Dose: 2 puff Multi-Ingredient Mouthwash/Gargle (Biotene Dry Mouth Oral Rinse(Nf)) 15 ml MT QID [facility] Last Admin: 08/22/19 16:30 Dose: 15 ml Nitroglycerin (Nitroglycerin Tab 0.4 Mg*) 0.4 mg SL Q5M PRN PRN Reason: ANGINA Olopatadine HCl (Patanol 0.1% Ophth (Nf)) 1 drop BOTH EYES BID [facility]; Protocol Last Admin: 08/22/19 09:48 Dose: Not Given Ondansetron HCl (Zofran Tab*) 4 mg PO Q6H PRN PRN Reason: NAUSEA Oxycodone HCl (Roxycodone Tab*) 15 mg PO Q6H PRN PRN Reason: PAIN - SEVERE Last Admin: 08/22/19 10:47 Dose: 15 mg Pantoprazole Sodium (Protonix Tab*) 40 mg PO DAILY [facility] Last Admin: 08/22/19 09:34 Dose: 40 mg Pharmacy Profile Note (Coumadin Daily Reminder*) 1 note FOLLOW UP 1700 [facility] Last Admin: 08/22/19 16:30 Dose: 1 note Pharmacy Profile Note (Lidocaine Patch Remove*) 1 note PATCH OFF 2100 [facility] Last Admin: 02/09/20 20:06 Dose: 1 note Polyethylene Glycol/Electrolytes (Miralax (17 Gm Dose Emmett)) 17 gm PO DAILY PRN PRN Reason: CONSTIPATION Pregabalin (Lyrica 50 Mg Cap (*)) 50 mg PO BID [facility] Last Admin: 08/22/19 09:34 Dose: 50 mg Senna (Senokot 8.6 Mg Tab*) 1 tab PO BID [facility] Last Admin: 08/22/19 09:34 Dose: 1 tab Spironolactone (Aldactone Tab*) 25 mg PO DAILY [facility] Last Admin: 08/22/19 09:35 Dose: 25 mg Tiotropium [place] (Spiriva Respimat 2.5 Mcg) 2 puff INH DAILY [facility] Last Admin: 08/22/19 08:04 Dose: 2 puff Torsemide (Demadex*) 40 mg PO DAILY [facility] Last Admin: 08/22/19 09:38 Dose: 40 mg Trazodone HCl (Desyrel Tab*) 50 mg PO BEDTIME PRN PRN Reason: SLEEP Last Admin: 08/18/19 22:30 Dose: 50 mg Warfarin Sodium (Coumadin Tab(*)) 5 mg PO DAILY@1700 [facility]; Protocol Last Admin: 08/22/19 16:29 Dose: 5 mg Vital Signs - 8 hr 08/22/19 08/22/19 08/22/19 11:34 12:47 15:15 Temperature 97.6 F Pulse Rate 84 Respiratory 15 15 16 Rate Blood Pressure 99/42 (mmHg) O2 Sat by Pulse 99 Oximetry Oxygen Devices in Use Now: Nasal Cannula Appearance: Elderly female sitting up in a chair, NAD Eyes: No Scleral Icterus Ears/Nose/Mouth/Throat: Mucous Membranes Moist Respiratory: Symmetrical Chest Expansion and Respiratory Effort, Clear to Auscultation Cardiovascular: NL Sounds; No Murmurs; No JVD, RRR, - - 1-2+ LE edema Abdominal: NL Sounds; No Tenderness; No Distention Extremities: No Clubbing, Cyanosis Skin: No Nodules or Sclerosis, - - stasis dermatitis changes to R>L LE Neurological: Alert and Oriented x 3 Result Diagrams: 08/22/19 06:40 08/22/19 06:40 Additional Lab and Data: Laboratory Results - last 24 hr 08/20/19 08/21/19 05:53 04:47 INR (Anticoag Therapy) 1.41 H C-Reactive Protein 12.93 H Microbiology and Other Data: Microbiology 08/18/19 09:35 Sputum Expectorated Gram Stain - Final 08/18/19 09:35 Sputum Expectorated Sputum Culture - Final Pseudomonas Aeruginosa Normal Shyla Assess/Plan/Problems-Billing 89 yo female PMH of CAD, Afib & DVT (November 2018) on Coumadin, Lymphadema with chronic nonhealing wounds (though had cleared recently), COPD with chronic hypoxic respiratory failure (2L), thrombocytopenia, severe OA with chronic hip and back pain p/w b/l leg pain, erythema and warmth. - Patient Problems (1) Cellulitis Current Visit: Yes Status: Acute Code(s): L03.90 - CELLULITIS, UNSPECIFIED SNOMED Code(s): 474095583 Comment: Pt had 3 days of ceftriaxone and now 2 days of cefepime. The fact that she has bilateral redness leans against cellulitis. ID consult today recommended stopping Abx as she likely does not have cellulitis. Start eucerine cream to the legs. ? hydrocortisone for the stasis dermatitis. (2) Acquired lymphedema of lower extremity Current Visit: Yes Status: Acute Code(s): I89.0 - LYMPHEDEMA, NOT ELSEWHERE CLASSIFIED SNOMED Code(s): 919140789 Comment: Has been following with the lymphedema clinic on the recommendation of Dr. Snyder. Has been using new compression "wraps" for last few weeks. Continue to use especially while at rehab. (3) A-fib Current Visit: Yes Status: Acute Code(s): I48.91 - UNSPECIFIED ATRIAL FIBRILLATION SNOMED Code(s): 39102809 Comment: HR is controlled. Continue current dose of coumadin as INR is sub therapeutic. (4) Thrombocytopenia Current Visit: Yes Status: Acute Code(s): D69.6 - THROMBOCYTOPENIA, UNSPECIFIED SNOMED Code(s): 798304237 Comment: Resolved. (5) CKD (chronic kidney disease) Current Visit: Yes Status: Acute Code(s): N18.9 - CHRONIC KIDNEY DISEASE, UNSPECIFIED SNOMED Code(s): 956574888 Comment: Stage III CKD. Creatinine is essentially at baseline. Continue to follow intermittently. (6) Chronic obstructive pulmonary disease (COPD) Current Visit: Yes Status: Acute Code(s): J44.9 - CHRONIC OBSTRUCTIVE PULMONARY DISEASE, UNSPECIFIED SNOMED Code(s): 93609515 Comment: No signs of exacerbation. Continue current respiratory regimen. (7) DVT prophylaxis Current Visit: Yes Status: Acute Code(s): PDO4404 - SNOMED Code(s): 859828309 Comment: coumadin (8) Full code status Current Visit: Yes Status: Acute Onset Date: 10/14/14 Code(s): Z78.9 - OTHER SPECIFIED HEALTH STATUS SNOMED Code(s): 111577481 Status and Disposition: rehab tomorrow
[2019-08-22] MEDS: Lidocaine Patch REMOVE* 1 NOTE MISC PATCH OFF SCH (20:17)
[2019-08-22] MEDS: Moisturizing CREAM* 120 GM JAR TOPICAL SCH (20:20)
[2019-08-23] MEDS: Levothyroxine TAB* 25 MCG TAB PO SCH (05:52)
[2019-08-23 06:13] LABS: INR 1.94 (0.82-1.09)
[2019-08-23] MEDS: Mometasone/Formoter 200/5 MDI INH SCH (08:09)
[2019-08-23] MEDS: SPIRIVA Respimat* (tiotropium) 2.5 mcg/inh Inhaler INH SCH (08:09)
[2019-08-23 08:41] VITALS: BP 108/48
[2019-08-23] MEDS: Pantoprazole TAB * 40 MG TAB PO SCH (08:50)
[2019-08-23] MEDS: Torsemide TAB* 20 MG PO SCH (08:50)
[2019-08-23] MEDS: Cholecalciferol TAB* 400 UNIT PO SCH (08:50)
[2019-08-23] MEDS: Famotidine TAB* 20 MG PO SCH (08:50)
[2019-08-23] MEDS: Calcium Polycarbophil TAB* 625 MG PO SCH (08:51)
[2019-08-23] MEDS: CMCS: Lubiprostone 24 MCG CAP (NF) PO SCH (08:51)
[2019-08-23] MEDS: Metoprolol Succinate XL TAB* 25 MG PO SCH (08:51)
[2019-08-23] MEDS: Lactobacillus Acidophilus* 1 TAB PO SCH (08:51)
[2019-08-23] MEDS: Spironolactone TAB* 25 MG PO SCH (08:51)
[2019-08-23] MEDS: Calcium/Vitamin D TAB 250/125* TAB PO SCH (08:52)
[2019-08-23] MEDS: Pregabalin 50 mg CAP (*) PO SCH (08:52)
[2019-08-23] MEDS: Ferrous Sulfate TAB* 325 MG PO SCH (08:52)
[2019-08-23] MEDS: Senna TAB 8.6 mg* TAB PO SCH (08:53)
[2019-08-23] MEDS: oxyCODONE TAB* 5 MG TAB PO PRN (08:54)
[2019-08-23] MEDS: DULoxetine DR CAP* 20 MG CAP.DR PO SCH (08:54)
[2019-08-23] MEDS: Magnesium Oxide TAB* 400 MG PO SCH (08:55)
[2019-08-23] MEDS: Lidocaine PATCH 5%* 1 PATCH TRANSDERM SCH (08:55)
[2019-08-23] MEDS: Oral Rinse (Biotene)(NF) 237 ML or 473 ML ORAL RINSE BTL MT SCH ×2 (08:57→13:45)
[2019-08-23] MEDS: Olopatadine 0.1% OPHTH (NF) 1 DROP BTL BOTH EYES SCH (09:03)
[2019-08-23] MEDS: Moisturizing CREAM* 120 GM JAR TOPICAL SCH (09:03)
--- NOTE | 2019-08-23 10:27 | DS ---
CC: Dr. Thompson * DATE OF ADMISSION: 08/17/2019. DATE OF DISCHARGE: 08/23/2019. PRIMARY CARE PHYSICIAN: Dr. Thompson. PRINCIPAL DIAGNOSIS: Probable stasis dermitis to the bilateral lower extremities in the setting of chronic lymphedema. SECONDARY DIAGNOSES: 1. COPD. 2. Atrial fibrillation. 3. Stage 3 chronic kidney disease. 4. Hypothyroidism. 5. GERD. 6. Anxiety. DISCHARGE MEDICATIONS: 1. Tylenol 650 mg p.o. q.6 hours prn pain. 2. Albuterol-Ipratropium neb one neb inhaled t.i.d. prn shortness of breath. 3. Artificial Tears one drop to both eyes q.2 hours prn dryness. 4. Symbicort 160/4.5 two puffs inhaled twice daily. 5. Calcium plus D one tab p.o. daily. 6. Fibercon 625 mg p.o. b.i.d. 7. Vitamin D3 800 units p.o. daily. 8. Flexeril 5 to 10 mg p.o. at bedtime prn spasm. 9. Duloxetine DR 20 mg p.o. daily. 10. Famotidine 20 mg p.o. b.i.d. 11. Ferrous Sulfate 325 mg p.o. daily. 12. DuoNeb one neb inhaled q.i.d. 13. Lactobacillus one cap p.o. daily. 14. Levalbuterol two puffs inhaled q.i.d. prn shortness of breath. 15. Levothyroxine 12.5 mcg p.o. daily. 16. Lidocaine patch applied topically daily. 17. Ativan 0.5 mg p.o. b.i.d. prn anxiety. 18. Amitiza 24 mcg p.o. b.i.d. 19. Milk of Magnesium 30 ml p.o. b.i.d. prn constipation. 20. Magnesium Oxide 400 mg p.o. b.i.d. 21. Metoprolol XL 25 mg p.o. daily. 22. Nitroglycerin 0.4 mg SL q.5 minutes prn chest pain. 23. Olopatadine one drop to both eyes b.i.d. 24. Biotene Dry Mouth oral rinse 15 ml swish and spit 4 times daily. 25. Oxycodone 10 mg p.o. q.6 hours prn pain. 26. MiraLax 17 gm p.o. daily prn constipation. 27. Lyrica 50 mg p.o. b.i.d. 28. Actonel 35 mg p.o. weekly. 29. Senna one tab p.o. b.i.d. 30. Simethicone 80 to 160 mg p.o. after meals and bedtime as needed for gaseous distention. 31. Spironolactone 25 mg p.o. daily. 32. Spiriva one puff inhaled daily. 33. Demadex 40 mg p.o. daily. 34. Trazodone 50 mg p.o. at bedtime prn insomnia. 35. Coumadin 3 mg p.o. daily. HOSPITAL COURSE: Ms. Saldana is an 89-year-old female who presented to the emergency room on very late evening of 08/16/2019 with complaints of pain in both legs. The patient was admitted for cellulitis versus venous status changes. She was initially started on Ceftriaxone which she received three days worth. This was then subsequently changed to Cefepime as somebody obtained a sputum sample from the patient despite her not having any respiratory complaints and this grew pseudomonas. Despite being on five days of IV antibiotic therapy, there was no significant improvement in the lower extremity redness pain or swelling. Infectious Disease consultation was obtained on 08/22/2019. It was felt that the patient's erythema, pain, and swelling of her legs is not secondary to cellulitis, but likely venous stasis and stasis dermitis. The patient never had a leukocytosis or fever. Her CRP was only minimally elevated at approximately 12. The patient has been taken off antibiotic therapy. Significant caution should be used before prescribing further antibiotic therapy for what many believe is bilateral cellulitis as the patient frequently complains of redness, pain and swelling in her legs, but most of the time she does not, in fact, have cellulitis, but changes to her legs secondary to her chronic venous stasis. If there is an asymmetric redness at that point, treatment for cellulitis could be initiated if indicated. The patient's lower extremity edema at this point is better than it has been in the past. She remains on Torsemide 40 mg daily and should continue on this. Additionally, she is on Spironolactone 25 mg daily. She should also continue on Eucerin cream applied to the legs twice daily. The patient does continue to complain of pain in her legs. This is a chronic issue for her. She will continue on Oxycodone 10 mg every six hours as needed. Additionally, she will continue on Lyrica and prn Tylenol. The patient carries a history of atrial fibrillation. Currently, she sounds to be in sinus rhythm. She will continue on Metoprolol XL 25 mg twice daily and Coumadin 3 mg daily. The patient's INR during her hospitalization started just barely therapeutic at 2.01, but trended down to 1.41 on 08/21/2019. On 2019, it is up to 1.94 after increasing her dose of Coumadin. I worry that with the significant jump that she made between yesterday and today, 5 mg is too much. I have reduced her Coumadin dose to 3 mg daily. A follow-up INR should be obtained on 08/26/2019. The patient has been evaluated by Physical Therapy and felt to benefit from subacute rehab. The patient is very hesitant to return back to [facility]. She is worried about the assistance that she will receive there. Ultimately, however, the patient does understand that she needs more help than she is currently receiving at home and is willing to go. The patient will be discharged to [facility] today, 08/23/2019. FOLLOW-UP CONCERNS: The patient is being discharged to [facility] today, 05/2020. ACTIVITY LEVEL: As tolerated. DIET: Heart-healthy. CONDITION ON DISCHARGE: Stable. TIME SPENT: Thirty-five minutes were spent discharging this patient. [id number]/[facility] #: [id number] PORTER
== END 2019-08-23 16:15 | disposition home or self-care (01) | DRG 300 ==
LOC: ED 23:42 → MED 08-17 10:19 → OBSVTOIN 08-18 11:00
PROVIDERS: ADMIT Internal Medicine; ATTEND Hospitalist
DX: I87.2 Venous insufficiency (chronic) (peripheral) (principal); I13.0 Hypertensive heart and chronic kidney disease with heart failure and stage 1 through stage 4 chronic kidney disease, or unspecified chronic kidney disease; J96.11 Chronic respiratory failure with hypoxia; I50.32 Chronic diastolic (congestive) heart failure; I89.0 Lymphedema, not elsewhere classified; J44.9 Chronic obstructive pulmonary disease, unspecified; D69.6 Thrombocytopenia, unspecified; I48.91 Unspecified atrial fibrillation; N18.3 Chronic kidney disease, stage 3 (moderate); E03.9 Hypothyroidism, unspecified; K21.9 Gastro-esophageal reflux disease without esophagitis; F41.9 Anxiety disorder, unspecified; I25.10 Atherosclerotic heart disease of native coronary artery without angina pectoris; G62.9 Polyneuropathy, unspecified; Z99.81 Dependence on supplemental oxygen; E78.00 Pure hypercholesterolemia, unspecified; E86.0 Dehydration; I07.1 Rheumatic tricuspid insufficiency; F32.9 Major depressive disorder, single episode, unspecified; M16.12 Unilateral primary osteoarthritis, left hip; M25.552 Pain in left hip; R79.1 Abnormal coagulation profile; D64.9 Anemia, unspecified; Z86.11 Personal history of tuberculosis; Z86.718 Personal history of other venous thrombosis and embolism; Z79.01 Long term (current) use of anticoagulants; Z79.899 Other long term (current) drug therapy; Z88.1 Allergy status to other antibiotic agents; Z88.5 Allergy status to narcotic agent; Z88.0 Allergy status to penicillin; Z88.2 Allergy status to sulfonamides; Z88.8 Allergy status to other drugs, medicaments and biological substances; Z87.891 Personal history of nicotine dependence
CPT/HCPCS: 36415; 71046; 80048; 80053; 81003; 83605; 83880; 85025; 85610; 85730; 86140; 87070; 87077; 87186; 87205; 93005; 94640; 96365; 99283; A9270-GY; G0378; J0692; J0696; J1644; J3535

== ENCOUNTER 2019-10-21 12:53 | Emergency (ER) | payer MEDICARE, BC ==
--- NOTE | 2019-10-21 13:08 | ED ---
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 - Allergies/Home Medications Allergies/Adverse Reactions: Allergies Allergy/AdvReac Type Severity Reaction Status Date / Time fentanyl Allergy Unknown Difficulty Verified 08/10/19 15:48 Breathing sulfamethoxazole AdvReac Intermediate Nausea Verified 08/10/19 15:48 [From Bactrim] trimethoprim [From Bactrim] AdvReac Intermediate Nausea Verified 08/10/19 15:48 ciprofloxacin AdvReac Hives Verified 08/10/19 15:48 codeine AdvReac Hives Verified 08/10/19 15:48 Penicillins AdvReac Hives Verified 08/10/19 15:48 Home Medications: Home Medications Levothyroxine TAB* [Synthroid 25 MCG TAB*] 12.5 mcg PO DAILY 11/13/17 [History Confirmed 08/17/19] Tiotropium CAPSULE (NF) [Spiriva CAPSULE (NF)] 1 cap.inh INH DAILY 03/10/18 [ History Confirmed 08/17/19] Risedronate (NF) [Actonel (NF)] 35 mg PO WEEKLY 05/20/18 [History Confirmed 11/29] Polyethylene Glycol 3350* [Miralax (17 GM DOSE PENG)] 17 gm PO DAILY PRN [History Confirmed 08/17/19] Lubiprostone 24 MCG CAP (NF) [Amitiza (NF)] 24 mcg PO BID 11/12/18 [History Confirmed 08/17/19] Ferrous Sulfate TAB* 325 mg PO DAILY tab 11/19/18 [Rx Confirmed 08/17/19] Cyclobenzaprine TAB* [Flexeril 10 MG TAB*] 5 - 10 mg PO QPM PRN 01/12/19 [ History Confirmed 08/17/19] Calcium Carbonate/Vitamin D3 [Calcium 600 + Vit D Tablet] 1 tab PO DAILY [History Confirmed 08/17/19] Magnesium Oxide TAB* [MagOx 400 TAB*] 400 mg PO BID 03/21/19 [History Confirmed 08/17/19] Metoprolol Succinate XL TAB* [Toprol XL TAB*] 25 mg PO DAILY 03/21/19 [History Confirmed 08/17/19] Oxycodone TAB(NF) [Oxycodone HCl 10 MG] 10 mg PO Q6H PRN MDD 4 tabs 03/21/19 [ History Confirmed 08/17/19] Pregabalin 50 mg CAP (*) [Lyrica 50 mg CAP (*)] 50 mg PO BID 03/21/19 [History Confirmed 08/17/19] Spironolactone TAB* [Aldactone TAB 25 MG*] 25 mg PO DAILY 03/21/19 [History Confirmed 08/17/19] Torsemide TAB* [Demadex 20 MG*] 40 mg PO DAILY 03/21/19 [History Confirmed 08/17] Budesonide/Formote 160/4.5(NF) [Symbicort 160/4.5 (NF)] 2 puff INH BID 05/03/19 [History Confirmed 08/17/19] Acetaminophen TAB* [Tylenol TAB*] 650 mg PO Q6H PRN 08/17/19 [History Confirmed 08/17/19] Albuterol/Ipratropium NEB.LOKESH* [Duoneb (Albuterol 2.5 MG/Ipratropium 0.5 MG)] 1 neb INH TID PRN 08/17/19 [History Confirmed 08/17/19] Artificial Tears* 15 ML BTL [Polyvinyl Alcohol 1.4% OPTH*] 1 drop BOTH EYES Q2H PRN 08/17/19 [History Confirmed 08/17/19] Calcium Polycarbophil TAB* [Fibercon TAB*] 625 mg PO BID 08/17/19 [History Confirmed 08/17/19] Cholecalciferol CAP/TAB(NF) [Vitamin D3 CAP/TAB (NF)] 800 unit PO DAILY [History Confirmed 08/17/19] DULoxetine DR CAP* [Cymbalta CAP*] 20 mg PO DAILY 08/17/19 [History Confirmed ] Famotidine TAB* [Pepcid 20 MG TAB*] 20 mg PO BID 08/17/19 [History Confirmed 11/29] Ipratropium/Albuterol Sulfate [Iprat-Albut 0.5-3(2.5) mg/3 ml] 1 vial INH QID [History Confirmed 08/17/19] LORazepam TAB(*) [Ativan 0.5 MG TAB (*)] 0.5 mg PO BID PRN 08/17/19 [History Confirmed 08/17/19] Lactobacillus Acidophilus [Acidophilus] 1 cap PO DAILY 08/17/19 [History Confirmed 08/17/19] Levalbuterol HFA INHALER* [Xopenex Hfa Inhaler*] 2 puff INH QID PRN 08/17/19 [ History Confirmed 08/17/19] Lidocaine PATCH 5%* [Lidoderm 5% Patch*] 1 patch TRANSDERM DAILY 08/17/19 [ History Confirmed 08/17/19] Magnesium Hydroxide LIQ* [Milk of Magnesia LIQ*] 30 ml PO BID PRN 08/17/19 [ History Confirmed 08/17/19] Nitroglycerin TAB 0.4 MG* 0.4 mg SL Q5M PRN MDD 4 tabs 08/17/19 [History Confirmed 08/17/19] Omeprazole CAP (NF) [Prilosec CAP* 20 MG] 20 mg PO DAILY 08/17/19 [History Confirmed 08/17/19] Ondansetron TAB* [Zofran 4 MG Tab*] 4 mg PO .Q4-6H PRN 08/17/19 [History Confirmed 08/17/19] Oral Rinse (Biotene)(NF) [Biotene Dry Mouth Oral Rinse(NF)] 15 ml SWISH SPIT QID 08/17/19 [History Confirmed 08/17/19] Simethicone TAB* [Mylicon TAB*] 80 - 160 mg PO .PC, HS PRN 08/17/19 [History Confirmed 08/17/19] Olopatadine 0.1% OPHTH (NF) [Patanol 0.1% OPHTH (NF)] 1 drop BOTH EYES BID btl 08/22/19 [Rx] Senna TAB 8.6 mg* [Senokot 8.6 mg TAB*] 1 tab PO BID tab 08/22/19 [Rx] traZODone TAB* [Desyrel TAB*] 50 mg PO BEDTIME PRN #0 08/22/19 [Rx Confirmed 11/29] Warfarin TAB(*) [Coumadin TAB(*)] 3 mg PO 1700 #30 tab 08/23/19 [Rx] PMH/Surg Hx/FS Hx/Imm Hx Previously Healthy: Yes Endocrine/Hematology History: Reports: Hx Anticoagulant Therapy - coumadin for a fib, Hx Blood Disorders - chronic thrombocytopenia, Hx Thyroid Disease - juwan, Hx Anemia Denies: Hx Diabetes Cardiovascular History: Reports: Hx Angina, Hx Congestive Heart Failure, Hx Coronary Artery Disease, Hx Deep 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 PT WITH TB 1994 Denies: Hx Lung Cancer, Hx Pulmonary Embolism GI History: Reports: Hx Gall Bladder Disease - cholecystectomy 1976, Hx Gastroesophageal Reflux Disease - CONTROL WITH MED, Hx Ulcer, Other GI Disorders - partial gastrectomy 1972 Denies: Hx Gastrointestinal Bleed, Hx Urosepsis History: Reports: Hx Chronic Renal Failure, Other Problems/Disorders - hysterectomy Denies: Hx Acute Renal Failure, Hx Benign Prostatic Hyperplasia, Hx Dialysis , Hx Kidney Stones, Hx Renal Disease Musculoskeletal History: Reports: Hx Arthritis - BACK, KNEES, Hx Back Problems - lumbar laminectomy 1995, Hx Orthopedic Injury - hx r arm, r ankle, toes, Other Musculoskeletal History - back surgery 1995 Sensory History: Reports: Hx Cataracts - removed, Hx Contacts or Glasses - reading glasses Denies: Hx Eye Injury, Hx Eye Prosthesis, Hx Glaucoma, Hx Macular Degeneration, Hx Deafness, Hx Hearing Aid, Hx Hearing Problem, Other Sensory Impairments Opthamlomology History: Reports: Hx Cataracts - removed, Hx Contacts or Glasses - reading glasses Denies: Hx Eye Injury, Hx Eye Prosthesis, Hx Glaucoma, Hx Macular Degeneration, Other Sensory Impairments Neurological History: Reports: Other Neuro Impairments/Disorders - PERIPHERAL NEUROPATHY BILAT Denies: Hx Dementia, Hx Developmental Delay, Hx Migraine, Hx Seizures, Hx Transient Ischemic Attacks (TIA) Psychiatric History: Reports: Hx Anxiety - CONTROL WITH MED, Hx Depression - CONTROL WITH MED Denies: Hx Panic Disorder, Hx Schizophrenia, Hx Bipolar Disorder, Hx Suicide Attempt, Hx of Violent Episodes Against Others - Cancer History Cancer Type, Location and Year: breast lumpectomy was benign Hx Chemotherapy: No Hx Radiation Therapy: No - Surgical History Surgery Procedure, Year, and Place: T&A A CHILD. groin abscess A CHILD. appendectomy, cholecystectomy, [facility] [place]. hysterectomy partial, [facility]. thyroidectomy partial, [facility] [place]. L breast and R lung biopsies, [facility]. 1995 laminectomy L4,5, [facility]. gastrectomy partial 1973 r/t hemmorhaging ulcer;. Carpal Tunnel Surgery Right Wrist by Dr. Chauhan in July 2015. BILAT CATARACTS, [facility] [place]. right lymph node bx 1994, [facility]. [place]- [place] [facility] [place] Left Breast lumpectomy 1982, [facility] [place] Hx Anesthesia Reactions: No - Immunization History Date of Tetanus Vaccine: 2013 Date of Influenza Vaccine: Fall 2012 Infectious Disease History: Reports: Hx Tuberculosis, History Other Infectious Disease - hx e-coli sepsis and pneumonia February 2017 Denies: Hx Clostridium Difficile, Hx Hepatitis, Hx Human Immunodeficiency Virus (HIV), Hx of Known/Suspected MRSA, Hx Known/Suspected VRE, Hx Known/ Suspected VRSA - Family History Known Family History: Positive: Cardiac Disease - father - CHF, brother - aneurysm Negative: Hypertension, Diabetes - Social History Alcohol Use: Rare Alcohol Amount: 2 drinks per week Hx Substance Use: Yes Substance Use Type: Reports: Prescribed Substance Use Comment - Amount & Last Used: oxycodone and oxymorphone Hx Tobacco Use: Yes Smoking Status (MU): Former Smoker Type: Cigarettes Amount Used/How Often: 2 packs per week Length of Time of Smoking/Using Tobacco: ON AND OFF 45 YRS Have You Smoked in the Last Year: No Discharge ED - Discharge Plan Referrals: Jose Thompson MD [Primary Care Provider] - - Attestation Statements Document Initiated by Scribe: Yes
--- NOTE | 2019-10-21 13:15 | ED ---
Skin Complaint - HPI Summary HPI Summary: This pt is an 89 Y/O F presenting to [facility] with a CC of redness and feet swelling that began last night. She states that she thinks she has Cellulitus and reports that her last episode of Cellulitus was in the Spring. She states that she has increased swelling in her feet which extends up to her knees with diffuse erythema. She states that her pain is increased with pressure and standing. She states that the pain is rated a 6/10 in severity. She denies any fevers, chills, ambulation issues, headaches, SOB, and diaphoresis. She states that she has a PMHx of CHF, PEs, CAD, HTN, and COPD. Pt admitted in August for lower extremity Cellulitus. ID consult obtained and she was diagnosed with Bilateral LE venous stasis, not Cellulitus. 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 Onset/Duration: Started Hours Ago - pt states she noticed it today, Still Present Timing: Constant Onset Severity: Moderate Current Severity: Moderate Pain Intensity: 6 Pain Scale Used: 0-10 Numeric Skin Location: Leg, Foot Character: Swelling, Pain, Redness Aggravating Symptom(s): Touch, Other: - pressure Alleviating Symptom(s): Nothing Associated Signs & Symptoms: Negative - fevers, chills, ambulation issues, headaches, SOB, and diaphoresis - Additional Pertinent History Primary Care Physician: [id number] - Allergy/Home Medications Allergies/Adverse Reactions: Allergies Allergy/AdvReac Type Severity Reaction Status Date / Time fentanyl Allergy Unknown Difficulty Verified 10/21/19 13:04 Breathing sulfamethoxazole AdvReac Intermediate Nausea Verified 10/21/19 13:04 [From Bactrim] trimethoprim [From Bactrim] AdvReac Intermediate Nausea Verified 10/21/19 13:04 ciprofloxacin AdvReac Hives Verified 10/21/19 13:04 codeine AdvReac Hives Verified 10/21/19 13:04 Penicillins AdvReac Hives Verified 10/21/19 13:04 Home Medications: Home Medications Levothyroxine TAB* [Synthroid 25 MCG TAB*] 12.5 mcg PO DAILY 11/13/17 [History Confirmed 08/17/19] Tiotropium CAPSULE (NF) [Spiriva CAPSULE (NF)] 1 cap.inh INH DAILY 03/10/18 [ History Confirmed 08/17/19] Risedronate (NF) [Actonel (NF)] 35 mg PO WEEKLY 05/20/18 [History Confirmed 11/29] Polyethylene Glycol 3350* [Miralax (17 GM DOSE PENG)] 17 gm PO DAILY PRN [History Confirmed 08/17/19] Lubiprostone 24 MCG CAP (NF) [Amitiza (NF)] 24 mcg PO BID 11/12/18 [History Confirmed 08/17/19] Ferrous Sulfate TAB* 325 mg PO DAILY tab 11/19/18 [Rx Confirmed 08/17/19] Cyclobenzaprine TAB* [Flexeril 10 MG TAB*] 5 - 10 mg PO QPM PRN 01/12/19 [ History Confirmed 08/17/19] Calcium Carbonate/Vitamin D3 [Calcium 600 + Vit D Tablet] 1 tab PO DAILY [History Confirmed 08/17/19] Magnesium Oxide TAB* [MagOx 400 TAB*] 400 mg PO BID 03/21/19 [History Confirmed 08/17/19] Metoprolol Succinate XL TAB* [Toprol XL TAB*] 25 mg PO DAILY 03/21/19 [History Confirmed 08/17/19] Oxycodone TAB(NF) [Oxycodone HCl 10 MG] 10 mg PO Q6H PRN MDD 4 tabs 03/21/19 [ History Confirmed 08/17/19] Pregabalin 50 mg CAP (*) [Lyrica 50 mg CAP (*)] 50 mg PO BID 03/21/19 [History Confirmed 08/17/19] Spironolactone TAB* [Aldactone TAB 25 MG*] 25 mg PO DAILY 03/21/19 [History Confirmed 08/17/19] Torsemide TAB* [Demadex 20 MG*] 40 mg PO DAILY 03/21/19 [History Confirmed 08/17] Budesonide/Formote 160/4.5(NF) [Symbicort 160/4.5 (NF)] 2 puff INH BID 05/03/19 [History Confirmed 08/17/19] Acetaminophen TAB* [Tylenol TAB*] 650 mg PO Q6H PRN 08/17/19 [History Confirmed 08/17/19] Albuterol/Ipratropium NEB.LOKESH* [Duoneb (Albuterol 2.5 MG/Ipratropium 0.5 MG)] 1 neb INH TID PRN 08/17/19 [History Confirmed 08/17/19] Artificial Tears* 15 ML BTL [Polyvinyl Alcohol 1.4% OPTH*] 1 drop BOTH EYES Q2H PRN 08/17/19 [History Confirmed 08/17/19] Calcium Polycarbophil TAB* [Fibercon TAB*] 625 mg PO BID 08/17/19 [History Confirmed 08/17/19] Cholecalciferol CAP/TAB(NF) [Vitamin D3 CAP/TAB (NF)] 800 unit PO DAILY [History Confirmed 08/17/19] DULoxetine DR CAP* [Cymbalta CAP*] 20 mg PO DAILY 08/17/19 [History Confirmed ] Famotidine TAB* [Pepcid 20 MG TAB*] 20 mg PO BID 08/17/19 [History Confirmed 11/29] Ipratropium/Albuterol Sulfate [Iprat-Albut 0.5-3(2.5) mg/3 ml] 1 vial INH QID [History Confirmed 08/17/19] LORazepam TAB(*) [Ativan 0.5 MG TAB (*)] 0.5 mg PO BID PRN 08/17/19 [History Confirmed 08/17/19] Lactobacillus Acidophilus [Acidophilus] 1 cap PO DAILY 08/17/19 [History Confirmed 08/17/19] Levalbuterol HFA INHALER* [Xopenex Hfa Inhaler*] 2 puff INH QID PRN 08/17/19 [ History Confirmed 08/17/19] Lidocaine PATCH 5%* [Lidoderm 5% Patch*] 1 patch TRANSDERM DAILY 08/17/19 [ History Confirmed 08/17/19] Magnesium Hydroxide LIQ* [Milk of Magnesia LIQ*] 30 ml PO BID PRN 08/17/19 [ History Confirmed 08/17/19] Nitroglycerin TAB 0.4 MG* 0.4 mg SL Q5M PRN MDD 4 tabs 08/17/19 [History Confirmed 08/17/19] Omeprazole CAP (NF) [Prilosec CAP* 20 MG] 20 mg PO DAILY 08/17/19 [History Confirmed 08/17/19] Ondansetron TAB* [Zofran 4 MG Tab*] 4 mg PO .Q4-6H PRN 08/17/19 [History Confirmed 08/17/19] Oral Rinse (Biotene)(NF) [Biotene Dry Mouth Oral Rinse(NF)] 15 ml SWISH SPIT QID 08/17/19 [History Confirmed 08/17/19] Simethicone TAB* [Mylicon TAB*] 80 - 160 mg PO .PC, HS PRN 08/17/19 [History Confirmed 08/17/19] Olopatadine 0.1% OPHTH (NF) [Patanol 0.1% OPHTH (NF)] 1 drop BOTH EYES BID btl 08/22/19 [Rx] Senna TAB 8.6 mg* [Senokot 8.6 mg TAB*] 1 tab PO BID tab 08/22/19 [Rx] traZODone TAB* [Desyrel TAB*] 50 mg PO BEDTIME PRN #0 08/22/19 [Rx Confirmed 11/29] Warfarin TAB(*) [Coumadin TAB(*)] 3 mg PO 1700 #30 tab 08/23/19 [Rx] ceFIXime [Cefixime] 200 mg PO BID #140 ml 10/21/19 [Rx] PMH/Surg Hx/FS Hx/Imm Hx Previously Healthy: Yes Endocrine/Hematology History: Reports: Hx Anticoagulant Therapy - coumadin for a fib, Hx Blood Disorders - chronic thrombocytopenia, Hx Thyroid Disease - juwan, Hx Anemia Denies: Hx Diabetes Cardiovascular History: Reports: Hx Angina, Hx Congestive Heart Failure, Hx Coronary Artery Disease, Hx Deep 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 PT WITH TB 1994 Denies: Hx Lung Cancer, Hx Pulmonary Embolism GI History: Reports: Hx Gall Bladder Disease - cholecystectomy 1976, Hx Gastroesophageal Reflux Disease - CONTROL WITH MED, Hx Ulcer, Other GI Disorders - partial gastrectomy 1972 Denies: Hx Gastrointestinal Bleed, Hx Urosepsis History: Reports: Hx Chronic Renal Failure, Other Problems/Disorders - hysterectomy Denies: Hx Acute Renal Failure, Hx Benign Prostatic Hyperplasia, Hx Dialysis , Hx Kidney Stones, Hx Renal Disease Musculoskeletal History: Reports: Hx Arthritis - BACK, KNEES, Hx Back Problems - lumbar laminectomy 1995, Hx Orthopedic Injury - hx r arm, r ankle, toes, Other Musculoskeletal History - back surgery 1995 Sensory History: Reports: Hx Cataracts - removed, Hx Contacts or Glasses - reading glasses Denies: Hx Eye Injury, Hx Eye Prosthesis, Hx Glaucoma, Hx Macular Degeneration, Other Sensory Impairments Opthamlomology History: Reports: Hx Cataracts - removed, Hx Contacts or Glasses - reading glasses Denies: Hx Eye Injury, Hx Eye Prosthesis, Hx Glaucoma, Hx Macular Degeneration, Other Sensory Impairments Neurological History: Reports: Other Neuro Impairments/Disorders - PERIPHERAL NEUROPATHY BILAT Denies: Hx Dementia, Hx Developmental Delay, Hx Migraine, Hx Seizures, Hx Transient Ischemic Attacks (TIA) Psychiatric History: Reports: Hx Anxiety - CONTROL WITH MED, Hx Depression - CONTROL WITH MED Denies: Hx Panic Disorder, Hx Schizophrenia, Hx Bipolar Disorder, Hx Suicide Attempt, Hx of Violent Episodes Against Others - Cancer History Cancer Type, Location and Year: breast lumpectomy was benign Hx Chemotherapy: No Hx Radiation Therapy: No - Surgical History Surgical History: Yes Surgery Procedure, Year, and Place: T&A A CHILD. groin abscess A CHILD. appendectomy, [place] [facility] [place] partial[place] [facility] [place]roidectomy partial, [facility] [place]. L breast and R lung biopsies, [facility]. 1995 laminectomy L4,5, [facility]. gastrectomy partial 1972 r/t hemmorhaging ulcer;. Carpal Tunnel Surgery Right Wrist by Dr. Chauhan in July 2015. BILAT CATARACTS, [facility] [place]. right lymph node bx 1994, [facility]. left leg surgery- vein [place] [facility] [place] Left Breast lumpectomy 1982, [facility] [place] Hx Anesthesia Reactions: No - Immunization History Date of Tetanus Vaccine: 2013 Date of Influenza Vaccine: Fall 2012 Immunizations Up to Date: Yes Infectious Disease History: No Infectious Disease History: Reports: Hx Tuberculosis, History Other Infectious Disease - hx e-coli sepsis and pneumonia February 2017 Denies: Hx Clostridium Difficile, Hx Hepatitis, Hx Human Immunodeficiency Virus (HIV), Hx of Known/Suspected MRSA, Hx Known/Suspected VRE, Hx Known/ Suspected VRSA, Traveled Outside the [place] in Last 30 Days - Family History Known Family History: Positive: Cardiac Disease - father - CHF, brother - aneurysm Negative: Hypertension, Diabetes - Social History Occupation: Retired Lives: Alone Alcohol Use: Rare Alcohol Amount: 2 drinks per week Hx Substance Use: Yes Substance Use Type: Reports: Prescribed Substance Use Comment - Amount & Last Used: oxycodone and oxymorphone Hx Tobacco Use: Yes Smoking Status (MU): Former Smoker Type: Cigarettes Amount Used/How Often: 2 packs per week Length of Time of Smoking/Using Tobacco: ON AND OFF 45 YRS Have You Smoked in the Last Year: No Review of Systems Negative: Fever, Chills, Skin Diaphoresis Negative: Shortness Of Breath Musculoskeletal: Negative - ambulatory issues Positive: Edema Skin: Other - erythema to bilateral LE, below the knee Negative: Headache All Other Systems Reviewed And Are Negative: Yes Physical Exam - Summary Physical Exam Summary: Constitutional: Well-developed, Well-nourished, Alert. (-) Distressed Skin: bilateral lower extremity erythema and edema HENT: Normocephalic; Atraumatic Eyes: Conjunctiva normal Neck: Musculoskeletal ROM normal neck. (-) JVD, (-) Stridor, (-) Tracheal deviation Cardio: Rhythm regular, rate normal, Heart sounds normal; Intact distal pulses; The pedal pulses are 2+ and symmetric. Radial pulses are 2+ and symmetric. (-) Murmur Pulmonary/Chest wall: Effort normal. (-) Respiratory distress, (-) Wheezes, (-) Rales Abd: Soft, (-) tenderness, (-) Distension, (-) Guarding, (-) Rebound Musculoskeletal: LE edema, good pedal pulses Lymph: (-) Cervical adenopathy Neuro: Alert, Oriented x3 Psych: Mood and affect Normal Triage Information Reviewed: Yes Vital Signs On Initial Exam: Initial Vitals Temp Pulse Resp BP Pulse Ox 96.6 F 75 16 111/66 97 10/21/19 13:01 10/21/19 13:01 10/21/19 13:01 10/21/19 13:01 10/21/19 13:01 Vital Signs Reviewed: Yes Procedures - Sedation Patient Received Moderate/Deep Sedation with Procedure: No Diagnostics - Vital Signs Vital Signs Temp Pulse Resp BP Pulse Ox 10/21/19 13:01 96.6 F 75 16 111/66 97 - Laboratory Result Diagrams: 10/21/19 13:19 Lab Statement: Any lab studies that have been ordered have been reviewed, and results considered in the medical decision making process. Course/Dx - Course Course Of Treatment: This pt is an 89 Y/O F presenting to [facility] with a CC of redness and feet swelling that began last night. She states that she thinks she has Cellulitus and reports that her last episode of Cellulitus was in the Spring of last year. She states that she has increased swelling in her feet which extends up to her knees with diffuse erythema. She states that her pain is increased with pressure and standing. Her PE found bilateral lower extremity erythema and edema with good pedal pulses. Pt admitted in August for lower extremity Cellulitus. ID consult obtained and she was diagnosed with Bilateral LE venous stasis, not Cellulitus. She has abnormal laboratory results in her Hgb, Plt counts, and C-reactive proteins. She was given Rocephin and Lidocaine during her ED course. Dr. Polk consulted with the pt and recommended discharge home. The pt was informed to return to the ED if her symptoms increased or she developed a fever. - Diagnoses Provider Diagnoses: Cellulitis - Physician Notifications Discussed Care Of Patient With: Melanie Polk Time Discussed With Above Provider: 13:58 Instructed by Provider To: Other - discharge home wiht ABx Tx Discharge ED - Sign-Out/Discharge Documenting (check all that apply): Patient Departure - discharge - Discharge Plan Condition: Good Disposition: HOME Prescriptions: ceFIXime [Cefixime] 200 mg PO BID #140 ml Patient Education Materials: Cellulitis (ED) Referrals: Jose Thompson MD [Primary Care Provider] - 2 Days Additional Instructions: PLEASE FOLLOW UP WITH YOUR PRIMARY CARE PROVIDER IN 1-3 DAYS AND RETURN TO THE EMERGENCY DEPARTMENT FOR ANY NEW OR WORSENING SYMPTOMS. Take the medications you were prescribed as directed and for the intended duration. Please maintain a close eye on your internal temperature as a fever is a cause for concern. - Billing Disposition and Condition Condition: GOOD Disposition: Home - Attestation Statements Document Initiated by Scribe: Yes Documenting Scribe: Will Rodriguez Provider For Whom Scribe is Documenting (Include Credential): David Reynoso DO Scribe Attestation: IWill, scribed for David Reynoso DO on 10/21/19 at 1521. Scribe Documentation Reviewed: Yes Provider Attestation: The documentation as recorded by the Will lynne accurately reflects the service I personally performed and the decisions made by David valentin DO Status of Scribe Document: Viewed
--- OUTSIDE RECORDS SUMMARY | 2019-10-21 13:23 | XMS REPORT | Continuity of Care Document ---
:1930 External Reference #:[id number] Author Name Jose Thompson M.D. Address [address] [place] [address] Care Team Providers Name Role Phone Kristyn Panchal MD - Surgery of the Care Team Information Wind Farm Operations Manager Hand Cuca Gandara ([place] Direct) - Care Team Information Wind Farm Operations Manager Surgery of the Hand [facility] - Clinic/Center Care Team Information Wind Farm Operations Manager Ronal Pfeiffer MD - Surgery Care Team Information Wind Farm Operations Manager [phone] Preston Gray MD - Gastroenterology Care Team Information Wind Farm Operations Manager Carlos Dejesus ([place] - Direct) Care Team Information Wind Farm Operations Manager - Otolaryngology Ema P.T. & Lymphedema - Care Team Information Wind Farm Operations Manager [phone] Physical Therapy Problems Active Problems Provider Date Atrial fibrillation Jayce Hunt M.D. Onset: 10/17/2008 Anticoagulant agent Jayce Hunt M.D. Onset: 10/17/2008 Congestive heart failure Jayce Hunt M.D. Onset: 10/17/2008 Chronic obstructive lung disease Jayce Hunt M.D. Onset: 10/17/2008 Hypothyroidism Jayce Hunt M.D. Onset: 10/17/2008 Anxiety state Jayce Hunt M.D. Onset: 10/17/2008 Disorder of bone Jayce Hunt M.D. Onset: 10/17/2008 Abdominal aortic aneurysm without rupture Jayce Hunt M.D. Onset: 07/17 Osteochondropathy Jayce Hunt M.D. Onset: 09/12/2009 Gastroesophageal reflux disease Jayce Hunt M.D. Onset: 10/02/2011 Dysuria Claudia Lara M.D. Onset: 11/27/2011 Ankle ulcer Jayce Hunt M.D. Onset: 11/18/2012 Arthralgia of the pelvic region and thigh Jayce Hunt M.D. Onset: 01/06 Anemia Jayce Hunt M.D. Onset: 05/24/2013 Neuralgia Jayce Hunt M.D. Onset: 08/24/2013 Benign essential hypertension Jose Thompson M.D. Onset: 02/19/2015 Chest pain Jose Thompson M.D. Onset: 02/26/2015 Carpal tunnel syndrome Jose Thompson M.D. Onset: 02/26/2015 Constipation Jose Thompsno M.D. Onset: 05/14/2015 Dehydration Jose Thompson M.D. Onset: 05/14/2015 Chronic kidney disease stage 3 Jose Thompson M.D. Onset: 05/14/2015 Chronic atrial fibrillation Jose Thompson M.D. Onset: 06/04/2015 Essential hypertension Jose Thompson M.D. 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 Onset: 06/30/2015 Peptic reflux disease Sunday Isaac M.D. Onset: 06/30/2015 Tietze's disease Jose Thompson M.D. Onset: 09/12/2015 Other nonspecific abnormal finding of Jose Thompson M.D. Onset: 09/12/2015 lung field Paroxysmal atrial fibrillation Jose Thompson M.D. Onset: 03/03/2016 Constipation - functional Jose Thompson M.D. Onset: 03/03/2016 Edema Jose Thompson M.D. Onset: 03/03/2016 Dyspnea Sunday Isaac M.D. Onset: 06/07/2016 Chronic pain syndrome Jose Thompson M.D. Onset: 04/22/2017 Chronic kidney disease stage 4 Jose Thompson M.D. Onset: 01/04/2018 Chronic diastolic heart failure Jose Thompson M.D. Onset: 06/07/2018 Dysthymic disorder Jose Thompson M.D. Onset: 08/25/2018 Deep venous thrombosis Neelima Graham NP Onset: 06/04/2019 Lymphedema Jose Thompson M.D. Onset: 10/17/2019 Social History Type Date Description Comments Sex Unknown Tobacco Use Start: Unknown End: Former Cigarette Smoker smoked until age 63 Unknown started age 18 ETOH Use Rare Tobacco Use Start: Unknown End: Patient is a former smoker quit in 1992. Unknown Tobacco Use Start: Unknown Smoking Status Reviewed: 10/17/19 Allergies, Adverse Reactions, Alerts Active Allergies Reaction Severity Comments Date Cipro hives 10/25/2007 Penicillin hives 10/25/2007 Duragesic 10/25/2007 Bactrim nausea, stomach pain 01/30/2011 Medications Active Medications SIG Qnty Indications Ordering Provider Date Famotidine take 1 tablet by 60tabs K30 Neelima Last 08/11/2019 20mg Tablets mouth two times RADHA Graham daily K21.9 Levalbuterol Tartrate Use 2 Inhalations 45units J44.9 Jose Mares 07/23/2019 Orally 4 Times Dino Thompson 45mcg/Act Aerosol Daily as Needed Triamcinolone Acetonide Apply To Affected 45units R21 Jose Mares 03/10/2019 Area(S) Once Daily Dino Thompson 0.025% Cream For Up To 4 Weeks as Directed Torsemide 2 by mouth every 14tabs Jose Mares 01/21/2019 20mg Tablets day Dino Thompson Ondansetron Take 1 Tablet By 4tabs M79.605 Jose Mares 01/03/2019 4mg Tablets Mouth Every 4 To 6 Dino Thompson Dispers Hours as Needed For Nausea / Vomiting Warfarin Sodium alternate 3mg and 90tabs Ashlyn Horowitz 08/25/2018 3mg Tablets 1.5g daily unless M.D. otherwise directed Biotene Dry Mouth swish and spit 15ml 473units K11.7 Chloe Crawford 01/22/2018 Gentle Oral Rinse 4 times per day RADHA Corbett Liquid Cyclobenzaprine HCL Take 1 To 2 Tablets 30tabs M54.5 Jose Mares 06/29/2017 5mg By Mouth AT Night Dino Thompson Tablets as Needed For Back Spasms Omeprazole Take One Capsule By 30caps K30 Jose Mares 01/01/[address] Mouth Every Day Dino Thompson K21.9 Fibercon 1 twice a day with 60tabs K59.09 Surekha Garrer, 11/27/2016 625mg Tablets meals COMMERCIAL PRODUCTION EDITOR Metoprolol Succinate take one tablet by 7tabs Chloe Crawford 09/08/2016 ER mouth every day RADHA Corbett 25mg Tablets ER 24HR Spiriva Handihaler Inhale The Contents 90caps Jose Thompson, 12/03/2015 18mcg Of One Capsule Via M.DAlice Capsules Handihaler Daily Duoneb inhale1 bullet via 180ml Jose Thompson, 11/21/2015 0.5-2.5(3)mg/3ML nebulizer three M.D. Solution times a day as needed for shortness of breath Levothyroxine Sodium take 1/2 tablet by 45tabs Jose Thompson, 2015 mouth once daily as M.D. 25mcg Tablets directed Vitamin D3 Take Two Tablets By 100tabs Jose Thompson, 02/19/2015 400Unit Mouth Every Day M.D. Tablets Symbicort Use 2 Inhalations 30.6units J44.9 Shiloh 06/14/2013 160-4.5mcg/Act Orally Twice Missael, COMMERCIAL PRODUCTION EDITOR Aerosol Daily Lorazepam take one tablet by 60tabs Jose Thompson, 12/09/2011 0.5mg Tablets mouth twice a day M.D. as needed for anxiety Nitrostat 1 sl as needed november 25tabs Carlos Morin 02/29/2008 0.4mg Tablets repeat q10 min x 3 MD Eamon Sub Spironolactone 1 by mouth every 90tabs Jose Thompson, 25mg day M.D. Tablets Artificial Tears bilaterally q2h prn Unknown Milk Of Magnesia as needed Unknown Iron 1 by mouth qd Unknown 325(65Fe) mg Tablets Acetaminophen ER 1 po q6h prn Unknown 650mg Tablets ER Magnesium Oxide 1 by mouth twice Unknown 400mg aday Capsules Duloxetine HCL 1 by mouth every Unknown 20mg Caps day DR Part Oxycodone HCL 1 by mouth every 6 120tabs Carlos T. 10mg hours as needed carter Knutson MD Tablets 4 per day Warfarin Sodium 1 by mouth every Unknown 2.5mg day or as directed Tablets Acidophilus 1 po qd Unknown Capsules Trazodone HCL 1-2 tablet at Unknown 50mg bedtime as needed Tablets for sleep Risedronate Sodium 1 by mouth every Unknown 35mg week Tablets Ipratropium [place] inhale one vial Unknown 0.02% with albuterol by Solution nebulizer 4 times daily Miralax 17 grams every day Unknown [id number] Packet with large glass water Amitiza 1 by mouth twice a Unknown 24mcg Capsules day Simethicone 1-2 after meals and Unknown 80mg Chewtabs at bedtime as needed for indigestion Lidoderm apply1 patch on Unknown 5% Patches wound 12 hours on 12 hours off Calcium 500 1 by mouth every Unknown 500mg Tablets day Lyrica 1 by mouth two Unknown 50mg Capsules times a day History Medications Doxycycline Hyclate one tab by 20tabs L03.116 Neelima Last 07/08/2019 - mouth twice a RADHA Graham 07/18/2019 100mg Tablets day Immunizations CPT Code Status Date Vaccine Lot # [id number] Given 04/14/2018 High-Dose, Influenza Virus Vacccine-fluzone 65 and [id number] older [id number] Given 06/07/2016 High-Dose, Influenza Virus Vacccine-fluzone 65 and [id number] older 37917 Given 02/27/2015 Zostivax [id number] Given 11/01/2014 Pneumococcal Conjugate Vacc-13 [id number] 22472 Given 04/03/2014 High-Dose, Influenza Virus Vacccine-fluzone 65 and [id number] older 22823 Given 03/01/2014 Tdap Tetanus, W Pertussis [id number] Given 07/01/2013 Preservative free flu 3 yrs+ and older [id number] 12593 Given 05/02/2008 DO Not Use Split Influenza Virus Vaccine [id number] 48136 Given 08/26/2007 Pneumococcal Immunization Vital Signs Date Vital Result Comment 10/17/2019 2:18pm BP Systolic 110 mmHg BP Diastolic 60 mmHg Weight 144.00 lb 07/08/2019 2:18pm BP Systolic 118 mmHg BP Diastolic 62 mmHg Heart Rate 80 /min Body Temperature 97.4 F Respiratory Rate 16 /min Height 63 inches 5'3" Results Test Acquired Date Facility Test Result H/L Range Note Inr/Protime 08/17/2019 [facility] [place] 2.01 High 0.82-1.09 1 Laboratory test 08/17/2019 [facility] Partial 45.7 seconds High 26.0-38.0 finding Thrombo Time PTT CBC Auto Diff 08/17/2019 [facility] White Blood 4.8 10^3/uL Normal 3.5-10.8 Count Red Blood Count 3.63 10^6/uL Low 3.70-4.87 Hemoglobin 11.5 g/dL Low 12.0-16.0 Hematocrit 36 % Normal 35-47 Mean Corpuscular Volume 98 fL High 80-97 Mean Corpuscular Hemoglobin 32 pg High 27-31 Mean Corpuscular HGB Conc 32 g/dL Normal 31-36 Red Cell Distribution Width 15 % Normal 10-15 Platelet Count 140 10^3/uL Low 150-450 Mean Platelet Volume 9.9 fL Normal 7.4-10.4 Abs Neutrophils 2.5 10^3/uL Normal 1.5-7.7 Abs Lymphocytes 1.7 10^3/uL Normal 1.0-4.8 Abs Monocytes 0.5 10^3/uL Normal 0-0.8 Abs Eosinophils 0.1 10^3/uL Normal 0-0.6 Abs Basophils 0.0 10^3/uL Normal 0-0.2 Abs Nucleated RBC 0.0 10^3/uL Granulocyte % 52.0 % Lymphocyte % 35.3 % Monocyte % 10.3 % Eosinophil % 2.1 % Basophil % 0.3 % Nucleated Red Blood Cells % 0.1 Laboratory test finding 08/17/2019 [facility] Lactic Acid 0.5 mmol/L Normal 0.5- 2.0 2 Comp Metabolic Panel 08/17/2019 [facility] Sodium 142 mmol/L Normal 135-145 Potassium 4.2 mmol/L Normal 3.5-5.0 Chloride 102 mmol/L Normal 101-111 Co2 Carbon Dioxide 35 mmol/L High 22-32 Anion Gap 5 mmol/L Normal 2-11 Glucose 105 mg/dL High 70-100 Blood Urea Nitrogen 44 mg/dL High 6-24 Creatinine 1.36 mg/dL High 0.51-0.95 BUN/Creatinine Ratio 32.4 High 8-20 Calcium 8.7 mg/dL Normal 8.6-10.3 Total Protein 6.6 g/dL Normal 6.4-8.9 Albumin 3.4 g/dL Normal 3.2-5.2 Globulin 3.2 g/dL Normal 2-4 Albumin/Globulin Ratio 1.1 Normal 1-3 Total Bilirubin 0.50 mg/dL Normal 0.2-1.0 Alkaline Phosphatase 108 U/L High 34-104 Alt 8 U/L Normal 7-52 Ast 14 U/L Normal 13-39 Egfr Non- 36.6 >60 Egfr 44.3 >60 3 Laboratory test 08/17/2019 [facility] C Reactive 12.13 mg/L High <8.01 finding Protein Laboratory test 07/08/2019 [facility] ([facility]) 1.3 Low 2.0-3.0 finding (607)- - Comprehensive 06/07/2019 Elaine Shyla([facility]) Sodium 140 mEq/L 134-149 Metabolic Prof Potassium 4.3 mEq/L 3.6-5.5 Chloride 103 mEq/L 94-112 Carbon Dioxide 31 mEq/L 21-32 Glucose 103 mg/dL 70-105 BUN 50 mg/dL High 6-26 4 Creatinine 1.5 mg/dL High 0.6-1.4 5 BUN/Creat Ratio 33.3 CALC 8.0-36.0 Calcium 8.2 mg/dL Low 8.6-10.2 6 Total Protein 6.5 g/dL 6.4-8.3 Albumin 3.8 g/dL 3.8-5.5 Globulin 2.7 g/dL 2.0-4.8 A/G Ratio 1.4 CALC 0.6-2.3 Alk. Phosphatase 124 U/L High 30-110 7 Alt (SGPT) 12 U/L 7-35 Ast (Sgot) 15 U/L 5-34 Total Bilirubin 0.5 mg/dL 0.2-1.3 GFR Non- 35 ml/min/1.73m^ Low >=60 GFR 42 ml/min/1.73m^ Low >=60 CBC Electronic [facility] 06/07/2019 Elaine Shyla([facility]) WBC 4.8 x10^3/UL 4.0- 10.0 RBC 3.50 x10^6/UL Low 3.93-6.00 8 HGB 11.0 g/dL Low 12.0-17.0 9 HCT 37 % 35-50 MCV 105.4 fL High 80.0-95.0 MCH 31.4 pg 25.6-32.2 MCHC 29.8 g/dL Low 32.2-36.0 RDW-CV 15.3 % High 11.6-14.4 PLT 198 x10^3/UL 163-400 MPV 9.7 fL 9.4-12.4 Gucci# 2.60 x10^3/UL 1.56-6.13 Lymph# 1.48 x10^3/UL 1.18-3.74 [place]# 0.58 x10^3/UL 0.24-0.82 Eos # 0.1 x10^3/UL 0.0-0.5 Baso # 0.03 x10^3/UL 0.01-0.08 [place]cci% 54.7 % 34.0-70.0 Lymph % 31.2 % 20.0-52.0 [place]% 12.2 % High 5.0-12.0 Eos% 1.1 % 0.7-7.0 Baso% 0.6 % 0.1-1.2 Laboratory test 06/07/2019 [facility] Brain Natural 392 pg/mL High < 100 finding (607)- - Peptide Laboratory test 05/23/2019 [facility] Inr ([facility]) 1.6 Low 2.0-3.0 finding (607)- - Laboratory test 05/19/2019 [facility] Brain Natural 405 pg/mL High < 100 finding (607)- - Peptide Comprehensive 05/19/2019 Elaine Shyla([facility]) Sodium 137 mEq/L 134-149 Metabolic Prof Potassium 4.1 mEq/L 3.6-5.5 Chloride 99 mEq/L 94-112 Carbon Dioxide 33 mEq/L High 21-32 10 Glucose 135 mg/dL High 70-105 11 BUN 76 mg/dL High 6-26 12 Creatinine 1.9 mg/dL High 0.6-1.4 13 BUN/Creat Ratio 40.0 CALC High 8.0-36.0 Calcium 8.1 mg/dL Low 8.6-10.2 14 Total Protein 6.5 g/dL 6.4-8.3 Albumin 3.8 g/dL 3.8-5.5 Globulin 2.7 g/dL 2.0-4.8 A/G Ratio 1.4 CALC 0.6-2.3 Alk. Phosphatase 154 U/L High 30-110 15 Alt (SGPT) 19 U/L 7-35 Ast (Sgot) 22 U/L 5-34 Total Bilirubin 0.6 mg/dL 0.2-1.3 GFR Non- 26 ml/min/1.73m^ Low >=60 GFR 32 ml/min/1.73m^ Low >=60 Laboratory test 05/03/2019 [facility] Troponin I 0.00 ng/mL <0.04 16 finding Laboratory test 05/03/2019 [facility] B-Type Natriuretic 380 pg/mL High <=100 finding Peptide BNP CBC Auto Diff 05/03/2019 [facility] White Blood Count 3.5 10^3/uL Normal 3.5- 10.8 Red Blood Count 4.17 10^6/uL Normal 3.70-4.87 Hemoglobin 12.9 g/dL Normal 12.0-16.0 Hematocrit 39 % Normal 35-47 Mean Corpuscular Volume 95 fL Normal 80-97 Mean Corpuscular Hemoglobin 31 pg Normal 27-31 Mean Corpuscular HGB Conc 33 g/dL Normal 31-36 Red Cell Distribution Width 14 % Normal 10-15 Platelet Count 130 10^3/uL Low 150-450 Mean Platelet Volume 9.5 fL Normal 7.4-10.4 Abs Neutrophils 2.5 10^3/uL Normal 1.5-7.7 Abs Lymphocytes 0.9 10^3/uL Low 1.0-4.8 Abs Monocytes 0.1 10^3/uL Normal 0-0.8 Abs Eosinophils 0.0 10^3/uL Normal 0-0.6 Abs Basophils 0.0 10^3/uL Normal 0-0.2 Abs Nucleated RBC 0.0 10^3/uL Granulocyte % 71.5 % Lymphocyte % 26.5 % Monocyte % 1.8 % Eosinophil % 0.0 % Basophil % 0.2 % Nucleated Red Blood Cells % 0.1 Comp Metabolic Panel 05/03/2019 [facility] Sodium 139 mmol/L Normal 135-145 Potassium 4.6 mmol/L Normal 3.5-5.0 Chloride 102 mmol/L Normal 101-111 Co2 Carbon Dioxide 31 mmol/L Normal 22-32 Anion Gap 6 mmol/L Normal 2-11 Glucose 206 mg/dL High 70-100 Blood Urea Nitrogen 51 mg/dL High 6-24 Creatinine 1.25 mg/dL High 0.51-0.95 BUN/Creatinine Ratio 40.8 High 8-20 Calcium 9.0 mg/dL Normal 8.6-10.3 Total Protein 7.2 g/dL Normal 6.4-8.9 Albumin 3.6 g/dL Normal 3.2-5.2 Globulin 3.6 g/dL Normal 2-4 Albumin/Globulin Ratio 1.0 Normal 1-3 Total Bilirubin 0.60 mg/dL Normal 0.2-1.0 Alkaline Phosphatase 123 U/L High 34-104 Alt 9 U/L Normal 7-52 Ast 12 U/L Low 13-39 Egfr Non- 40.4 >60 Egfr 48.8 >60 17 Laboratory test 05/03/2019 [facility] Troponin I 0.00 ng/mL <0.04 18 finding Inr/Protime 05/03/2019 [facility] Inr 1.42 High 0.82-1.09 19 Laboratory test 05/03/2019 [facility] D Dimer < 200 ng/mL Normal Less Than 20 finding Quantitative 230 1 Standard intensity warfarin therapeutic range: 2.0-3.0 High intensity warfarin therapeutic range: 2.5-3.5 2 TXS Severe Sepsis and Septic Shock Management Bundle Measure requires all lactic acids initially measuring >2.0 mmol/L be repeated. 3 Because ethnic data is not always [...] 5 Kidney failure <15 (or dialysis) 4 consistent w/ previous results 5 consistent w/ previous results 6 consistent w/ previous results 7 consistent w/ previous results 8 consistent w/ previous results 9 consistent w/ previous results 10 RESULTS VERIFIED BY REPEAT ANALYSIS 11 NON-FASTING 12 consistent w/ previous results 13 consistent w/ previous results 14 RESULTS VERIFIED BY REPEAT ANALYSIS 15 consistent w/ previous results 16 Troponin-I testing on Plasma Separator Tubes (PST) has a known false positive rate of 0.20-0.40%. All positive troponins reflex immediately to secondary confirmatory testing. Using the [employer] DxI 800 Access Immunoassay systems, the 99th percentile upper reference limit was demonstrated to be < 0.03 ng/mL. 17 Because ethnic data is not always readily [...] 15-29 5 Kidney failure <15 (or dialysis) 18 Troponin-I testing on Plasma Separator Tubes (PST) has a known false positive rate of 0.20-0.40%. All positive troponins reflex immediately to secondary confirmatory testing. Using the [employer] DxI 800 Access Immunoassay systems, the 99th percentile upper reference limit was demonstrated to be < 0.03 ng/mL. 19 Standard intensity warfarin therapeutic range: 2.0-3.0 High intensity warfarin therapeutic range: 2.5-3.5 20 Please note: The following may produce a false positive D Dimer test: - Rheumatoid factor greater than 60 IU/ml - Plasma hemoglobin greater than 0.05 gm/dl - Bilirubin greater than 50 mg/dl - Lipids greater than 1000 mg/dl - FDP greater than 20 ug/ml Procedures Date Code Description Status 07/08/2019 16707 Finger Or Heel Stick Completed 06/07/2019 24349 Pulse Oximetry Completed 12/17/2016 [id number] Mammogram Completed 08/22/2016 [id number] Mammogram Completed 05/31/2015 [id number] Mammogram Completed 11/23/2012 [id number] Mammogram Completed 10/29/2011 [id number] Mammogram Completed 10/12/2011 [id number] Bone Mineral Density Test Completed 09/20/2010 [id number] Mammogram Completed 09/07/2008 [id number] Mammogram Completed 08/02/2008 [id number] Colonoscopy Completed Medical Devices Description No Information Available Encounters Type Date Location Provider Dx Diagnosis Office Visit 10/17/2019 [facility] Office Jose Thompson, L03.90 Cellulitis, 2:10p M.D. 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 Office Neelima Graham, R60.0 Localized edema RAMP SERVICE AGENT I89.0 Lymphedema, not elsewhere classified N18.4 Chronic kidney disease, stage 4 (severe) J44.9 Chronic obstructive pulmonary disease, unspecified I50.9 Heart failure, unspecified Z59.8 Other problems related to housing and economic circumstances R06.02 Shortness of breath R29.6 Repeated falls Office Visit 05/19/2019 11:00a [facility] Office Shiloh R60.0 Localized edema Missael COMMERCIAL PRODUCTION EDITOR I89.0 Lymphedema, not elsewhere classified N18.4 Chronic kidney disease, stage 4 (severe) J44.9 Chronic obstructive pulmonary disease, unspecified I50.9 Heart failure, unspecified Z59.8 Other problems related to housing and economic circumstances R06.02 Shortness of breath R29.6 Repeated falls Assessments Date Code Description Provider 10/17/2019 L03.90 Cellulitis, unspecified Jose Thompson M.D. 10/17/2019 N18.4 Chronic kidney disease, stage 4 (severe) Jose Thompson M.D. 10/17/2019 I89.0 Lymphedema, not elsewhere classified Jose Thompson M.D. 10/17/2019 I50.32 Chronic diastolic (congestive) heart Jose Thompson M.D. failure 10/17/2019 K21.9 Gastro-esophageal reflux disease without Jose Thompson M.D. esophagitis 10/17/2019 J44.9 Chronic obstructive pulmonary disease, Jose Thompson M.D. unspecified 10/17/2019 E03.9 Hypothyroidism, unspecified Jose Thompson M.D. 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 Neelima Graham NP 07/08/2019 I48.11 Longstanding persistent atrial fibrillation Neelima Graham NP 06/07/2019 R60.0 Localized edema Neelima Graham NP 06/07/2019 I89.0 Lymphedema, not elsewhere classified Neelima Graham NP 06/07/2019 N18.4 Chronic kidney disease, stage 4 (severe) Neelima Graham NP 06/07/2019 J44.9 Chronic obstructive pulmonary disease, Neelima Last Santos, RAMP SERVICE AGENT unspecified 06/07/2019 I50.9 Heart failure, unspecified Neelima Last Graham, RAMP SERVICE AGENT 06/07/2019 Z59.8 Other problems related to housing and Neelima Graham, RAMP SERVICE AGENT economic circumstances 06/07/2019 R06.02 Shortness of breath Neelima Shala Graham, RAMP SERVICE AGENT 06/07/2019 R29.6 Repeated falls Neelima Mckennaano, RAMP SERVICE AGENT 05/19/2019 R60.0 Localized edema [place] Missael, [facility] 05/19/2019 I89.0 Lymphedema, not elsewhere classified [place] Missael, [facility] 05/19/2019 N18.4 Chronic kidney disease, stage 4 (severe) Shiloh Missael , [facility] 05/19/2019 J44.9 Chronic obstructive pulmonary disease, [place] Missael, [facility] unspecified 05/19/2019 I50.9 Heart failure, unspecified Shiloh Missael, [facility] 05/19/2019 Z59.8 Other problems related to housing and Shiloh Missael, [facility] economic circumstances 05/19/2019 R06.02 Shortness of breath Shiloh Missael, [facility] 05/19/2019 R29.6 Repeated falls Shiloh Missael, [facility] Plan of Treatment 10/17/2019 - Jose Thompson M.D.L03.90 Cellulitis, eehekpbteepD91.4 Chronic kidney disease, stage 4 (severe)I89.0 Lymphedema, not elsewhere [id number] Chronic diastolic (congestive) heart failureFollow up:Followup: . (Follow up)K21.9 Gastro-esophageal reflux disease without esophagitisFollow up :Followup:. (Follow up)J44.9 Chronic obstructive pulmonary disease, unspecifiedFollow up:Followup:. (Follow up)E03.9 Hypothyroidism, unspecifiedFollow up: Functional Status Description No Information Available Mental Status Description No Information Available Referrals Refer to Reason for Referral Status Appt Date Ema P.Mikel & Lymphedema edema-bilateral lower extremities Scheduled 08/2019 [address] [place] [address] [phone] Lifetime Care Please assess patient for in home safety Scheduled evaluation. Referral faxed. LT [phone]
--- OUTSIDE RECORDS SUMMARY | 2019-10-21 13:23 | XMS REPORT | Continuity of Care Document ---
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 [phone] Medicine Problems Active Problems Provider Date Dyspnea [...] cigarettes/day) not smoke when Smoking Status Reviewed: 09/22/19 Light tobacco smoker 2 Packs/week for (10 [...] D3 1 by mouth daily Unknown 07/19/2019 [id number] Tablets Spironolactone 1 tablet by mouth 45tabs [...] Provider Date No Injection Ahsan Petersen MD 09/22/2019 Injection No Injection Ahsan Petersen MD 09/22/2019 Injection Depomedrol 40MG Ahsan Petersen MD 09/22/2019 Injection Depomedrol 40MG Ahsan Petersen MD 09/22/2019 Injection No Injection Ahsan Petersen MD 05/02/2019 Injection Depomedrol 40MG Ahsan Petersen MD 05/02/2019 Injection Depomedrol 40MG Cuca Radford M.D. 12/06/2015 Injection Depomedrol 80MG Jake Lindsay M.D. 01/21/2013 Injection Immunizations CPT Code Status Date Vaccine Lot # [id number] Given 06/15/2017 Influenza Virus Vaccine, Quadrivalent, Split, [id number] Preservative Free Vital Signs Date Vital Result Comment 09/22/2019 1:36pm Height 64 inches 5'4" Heart Rate 71 /min BP Systolic 110 mmHg BP Diastolic 60 mmHg Body Temperature 98.6 F 08/03/2019 3:41pm Height 64 inches 5'4" Heart Rate 73 /min BP Systolic 110 mmHg BP Diastolic 58 mmHg Respiratory Rate 14 /min Body Temperature 96.8 F Pain Level 8 Results Test Acquired Date Facility Test Result H/L Range Note Basic Metabolic 06/21/2019 [facility] Sodium 139 mmol/L Normal 135-[address] [place] [address] [phone] Potassium 4.2 mmol/L Normal 3.5-5.0 Chloride 98 mmol/L Low 101-111 Co2 Carbon Dioxide 32 mmol/L Normal 22-32 Anion Gap 9 mmol/L Normal 2-11 Glucose 103 mg/dL High 70-100 Blood Urea Nitrogen 59 mg/dL High 6-24 Creatinine 1.51 mg/dL High 0.51-0.95 BUN/Creatinine Ratio 39.1 High 8-20 Calcium 8.7 mg/dL Normal 8.6-10.3 Egfr Non- 32.4 >60 Egfr 39.3 >60 1 CBC No Diff 06/21/2019 [facility] White Blood 5.5 10^3/uL Normal 3.5-10.[address] [place] [address] [phone] Red Blood Count 3.74 10^6/uL Normal 3.70-4.87 Hemoglobin 11.8 g/dL Low 12.0-16.0 Hematocrit 37 % Normal 35-47 Mean Corpuscular Volume 98 fL High 80-97 Mean Corpuscular Hemoglobin 32 pg High 27-31 Mean Corpuscular HGB Conc 32 g/dL Normal 31-36 Red Cell Distribution Width 16 % High 10-15 Platelet Count 160 10^3/uL Normal 150-450 Mean Platelet Volume 8.8 fL Normal 7.4-10.4 Xray 05/02/2019 [facility] Inj/Aspir Major JT Or Bursa [...] (or dialysis) Procedures Date Code Description Status 09/22/2019 Inj/Aspir Major JT Or Bursa W/ US Completed 05/02/2019 Inj/Aspir Major JT Or Bursa W/ US Completed 05/02/2019 Inject/Drain Joint/Bursa Intermediate W/O US Completed 08/22/2016 [id number] Mammogram Completed Medical Devices Description No Information Available Encounters Type Date Location Provider Dx Diagnosis [facility] Lymphedema, not 10:16a toya Pérez D.O. elsewhere Hospitalists classified I48.91 Unspecified atrial fibrillation Office Visit 08/22/2019 [facility] Angelito Vigil I87.2 Venous 10:55a For Infectious Dino Anderson insufficiency Diseases (chronic) (peripheral) J44.9 Chronic obstructive pulmonary disease, unspecified Z86.718 Personal history of other venous thrombosis and embolism [facility]ul[facility], Asstoya enamorado D.O. unspecified Hospitalists I89.0 Lymphedema, not elsewhere classified I48.91 Unspecified atrial fibrillation Office Visit 08/21/2019 10:16a [facility] Jose Barcenas, L03.90 Cellulitis , Asstoya enamorado MD unspecified Hospitalists I89.0 Lymphedema, not elsewhere classified I48.91 Unspecified atrial fibrillation D69.6 Thrombocytopenia, unspecified M25.552 Pain in left hip M79.669 Pain in unspecified lower leg G89.29 Other chronic pain R79.1 Abnormal coagulation profile Office Visit 08/20/2019 10:15a [facility] Jose Barcenas, L03.90 Cellulitis , Asstoya enamorado MD unspecified Hospitalists I89.0 Lymphedema, not elsewhere classified D69.6 Thrombocytopenia, unspecified I48.91 Unspecified atrial fibrillation M25.552 Pain in left hip M79.669 Pain in unspecified lower leg G89.29 Other chronic pain R79.1 Abnormal coagulation profile Office Visit 08/19/2019 10:15a [facility] L03.90 Cellulitis, toya Pérez M.D. unspecified Hospitalists R60.0 Localized edema M79.669 Pain in unspecified lower leg G89.29 Other chronic pain I48.91 Unspecified atrial fibrillation J44.9 Chronic obstructive pulmonary disease, unspecified D69.6 Thrombocytopenia, unspecified Office Visit 08/18/2019 10:14a [facility] L03.90 Cellulitis, toya Pérez M.D. unspecified Hospitalists R60.0 Localized edema M79.669 Pain in unspecified lower leg G89.29 Other chronic pain I48.91 Unspecified atrial fibrillation J44.9 Chronic obstructive pulmonary disease, unspecified D69.6 Thrombocytopenia, unspecified Office Visit 08/17/2019 10:14a [facility] Mariama R60.0 Localized edema Assoc,SATHYA [facility] Hospitalists M79.661 Pain in right lower leg M79.662 Pain in left lower leg Office Visit 08/03/2019 [place] Casey Acosta, M16.12 Unilateral primary 3:30p Orthopedics at .D. osteoarthritis, left [place] hip Office Visit 07/20/2019 [facility] Noa Cartre N18.3 Chronic kidney 11:30a Foster, N.P. disease, stage 3 (moderate) R60.0 Localized edema I48.20 Chronic atrial fibrillation, unspecified I50.32 Chronic diastolic (congestive) heart failure Office Visit 06/29/2019 10:30a [facility] Hugo Marcelo R22.42 [facility] Dino Snyder swelling, mass and lump, left lower limb R22.41 Localized swelling, mass and lump, right lower limb L03.115 Cellulitis of right lower limb L03.116 Cellulitis of left lower limb L97.811 Non-prs chr ulcer oth prt r low leg limited to brkdwn skin Office Visit 06/21/2019 2:00p [facility] Mirela James, I12.9 Hypertensive chronic kidney disease w stg 1-4/unsp chr kdny N18.3 Chronic kidney disease, stage 3 (moderate) R60.0 Localized edema Office Visit 06/08/2019 10:45a [facility] J44.9 [facility] Jaja obstructive [place] pulmonary disease, unspecified R09.02 Hypoxemia Office Visit 05/02/2019 [place] Casey Acosta, M16.12 Unilateral primary 2:15p Orthopedics at M.DAlice osteoarthritis, left [place] hip S50.01xA Contusion of right elbow, initial encounter M70.21 Olecranon bursitis, right elbow Office Visit 04/21/2019 9:30a [facility] Chloe Lundy, R06.02 Shortness of [employer] breath Office Visit 04/20/2019 8:45a [facility] Melanie Polk I89.0 Lymphedema, not D.O. 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 08/23/2019 I48.91 Unspecified atrial fibrillation Melanie Polk D.O. 08/22/2019 I87.2 Venous insufficiency (chronic) Angelito Anderson M.D. (peripheral) 08/22/2019 L03.90 Cellulitis, unspecified Melanie Polk D.O. 08/22/2019 J44.9 Chronic obstructive pulmonary disease, Angelito Anderson M.D. unspecified 08/22/2019 I89.0 Lymphedema, not elsewhere classified Melanie Polk D.O. 08/22/2019 Z86.718 Personal history of other venous Angelito Anderson M.D. thrombosis and embolism 08/22/2019 I48.91 Unspecified atrial fibrillation Melanie Polk D.O. 08/21/2019 L03.90 Cellulitis, unspecified Jose Barcenas MD 08/21/2019 I89.0 Lymphedema, not elsewhere classified Jose Barcenas MD 08/21/2019 I48.91 Unspecified atrial fibrillation Jose Barcenas MD 08/21/2019 D69.6 Thrombocytopenia, unspecified Jose Barcenas MD 08/21/2019 M25.552 Pain in left hip Jose Barcenas MD 08/21/2019 M79.669 Pain in unspecified lower leg Jose Barcenas MD 08/21/2019 G89.29 Other chronic pain Jose Barcenas MD 08/21/2019 R79.1 Abnormal coagulation profile Jose Barcenas MD 08/20/2019 L03.90 Cellulitis, unspecified Jose Barcenas MD 08/20/2019 I89.0 Lymphedema, not elsewhere classified Jose Barcenas MD 08/20/2019 D69.6 Thrombocytopenia, unspecified Jose Barcenas MD 08/20/2019 I48.91 Unspecified atrial fibrillation Jose Barcenas MD 08/20/2019 M25.552 Pain in left hip Jose Barcenas MD 08/20/2019 M79.669 Pain in unspecified lower leg Jose Barcenas MD 08/20/2019 G89.29 Other chronic pain Jose Barcenas MD 08/20/2019 R79.1 Abnormal coagulation profile Jose Barcenas MD 08/19/2019 L03.90 Cellulitis, unspecified Abhijit Martinez.D. 08/19/2019 R60.0 Localized edema Abhijit Martinez.D. 08/19/2019 M79.669 Pain in unspecified lower leg Abhijit Martinez.D. 08/19/2019 G89.29 Other chronic pain Carlos MartinezD. 08/19/2019 I48.91 Unspecified atrial fibrillation Abhijit Martinez.D. 08/19/2019 J44.9 Chronic obstructive pulmonary disease, Abhijit Martinez.D. unspecified 08/19/2019 D69.6 Thrombocytopenia, unspecified Abhijit Martinez.D. 08/18/2019 L03.90 Cellulitis, unspecified Abhijit Martinez.D. 08/18/2019 R60.0 Localized edema Abhijit Martinez.D. 08/18/2019 M79.669 Pain in unspecified lower leg Gregorio Kemp, M.D. 08/18/2019 G89.29 Other chronic pain Abhijit Martinez.D. 08/18/2019 I48.91 Unspecified atrial fibrillation Carlos MartinezDAlice 08/18/2019 J44.9 Chronic obstructive pulmonary disease, Abhijit Martinez.D. unspecified 08/18/2019 D69.6 Thrombocytopenia, unspecified Abhijit Martinez.D. 08/17/2019 R60.0 Localized edema Mariama Clayton, [facility] 08/17/2019 M79.661 Pain in right lower leg Mariama Clayton, [facility] 08/17/2019 M79.662 Pain in left lower leg Mariama Clayton, [facility] 08/03/2019 M16.12 Unilateral primary osteoarthritis, left Casey Acosta M.D. hip 07/20/2019 N18.3 Chronic kidney disease, stage 3 Noa Michel, N.P. (moderate) 07/20/2019 R60.0 Localized edema Noa Michel, N.P. 07/20/2019 I48.20 Chronic atrial fibrillation, Noa Michel, N.P. unspecified 07/20/2019 I50.32 Chronic diastolic (congestive) heart Noa Michel N.P. failure 06/29/2019 R22.42 Localized swelling, mass and lump, left Hugo Snyder M.D. lower limb 06/29/2019 R22.41 Localized swelling, mass and lump, Hugo Snyder M.D. right lower limb 06/29/2019 L03.115 Cellulitis of right lower limb Hugo Snyder M.D. 06/29/2019 L03.116 Cellulitis of left lower limb Hugo Snydre M.D. 06/29/2019 L97.811 Non-pressure chronic ulcer of [...] James MD 06/08/2019 J44.9 Chronic obstructive pulmonary disease, Edwina Wilkinson MD unspecified 06/08/2019 R09.02 Hypoxemia Edwina Wilkinson MD 05/06/2019 M16.12 Unilateral primary osteoarthritis, left Melanie Polk D.O. hip 05/06/2019 I89.0 Lymphedema, not elsewhere classified Melanie Polk D.O. 05/06/2019 I48.91 Unspecified atrial fibrillation Melanie Polk D.O. 05/06/2019 I50.32 Chronic diastolic (congestive) heart Melanie Polk D.O. failure 05/06/2019 J44.9 Chronic obstructive pulmonary disease, Yaritza LimO. unspecified 05/06/2019 Z66 Do not resuscitate Melanie Polk D.O. 05/02/2019 M16.12 Unilateral primary osteoarthritis, left Ahsan Petersen MD hip 05/02/2019 M16.12 Unilateral primary osteoarthritis, left Casey Acosta M.D. hip 05/02/2019 S50.01xA Contusion of right elbow, initial Casey Acosta M.D. encounter 05/02/2019 M25.552 Pain in left hip Ahsan Petersen MD 05/02/2019 M70.21 Olecranon bursitis, right elbow Casey Acosta M.D. 04/21/2019 R06.02 Shortness of breath Chloe Lundy, RAD[facility] 04/20/2019 I89.0 Lymphedema, not elsewhere classified Harpreet Lim.O. 04/20/2019 M16.12 Unilateral primary osteoarthritis, left Melanie Polk D.O. hip 04/20/2019 I48.91 Unspecified atrial fibrillation Harpreet Lim.O. 04/20/2019 I50.32 Chronic diastolic (congestive) heart Harpreet Lim.O. failure 04/20/2019 J44.9 Chronic obstructive pulmonary disease, Melanie Polk D.O. unspecified 04/20/2019 N18.9 Chronic kidney disease, unspecified Melanie Polk D.O. 04/20/2019 Z66 Do not resuscitate Harpreet Lim.O. 04/15/2019 L03.115 Cellulitis of right lower limb Chloe Lundy, RADHA 04/15/2019 L03.116 Cellulitis of left lower limb Chloe Lundy NP Plan of Treatment Future Appointment(s):12/06/2019 2:00 pm - Cuca Rucker NP at [facility]10/11/2018 - Nurse Visit ccI48.91 Unspecified atrial [id number] Essential (primary) hypertension Functional Status Description No Information Available Mental Status Description No Information Available Referrals Refer to Reason for Referral Status Appt Date Physical Therapy [facility] [address] [place] [address] [place] [address] [phone]
--- OUTSIDE RECORDS SUMMARY | 2019-10-21 13:23 | XMS REPORT | Continuity of Care Document ---
:1930 External Reference #:[id number] Author Name Merlyn Gamboa O.D. (transmitted by agent of provider Karli Culver) Address [address] [place] [address] Care Team Providers Name Role Phone Jose Thompson M.D. 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 Onset: 01/25/2016 Vitreous degeneration Merlyn Gamboa O.D. Onset: 01/25/2016 Pseudophakia eMrlyn Gamboa O.D. Onset: 01/25/2016 Tear film insufficiency Erika Smiley O.D. Onset: 03/11/2016 Internal hordeolum Erika Smiley O.D. 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 Onset: 07/21 degeneration Angular blepharoconjunctivitis Merlyn Gamboa O.D. Onset: 01/27/2018 Conjunctival hemorrhage Merlyn Gamboa O.D. Onset: 02/03/2019 Chronic allergic conjunctivitis Merlyn Gamboa O.D. Onset: 02/18/2019 Lymphedema Onset: Social History Type Date Description Comments Sex Unknown ETOH Use Denies alcohol use Recreational Drug Use Denies Drug Use Tobacco Use Start: Unknown End: Patient is a former smoker quit ~1992 Unknown Smoking Status Reviewed: 09/30/19 Patient is a former smoker quit ~1992 Allergies, Adverse Reactions, Alerts Active Allergies Reaction Severity Comments Date Penicillin 01/23/2016 Cipro 01/23/2016 Duragesic 07/24/2017 Bactrim 07/24/2017 Medications Active Medications SIG Qnty Indications Ordering Date Provider Olopatadine HCL 1 drop both 5units Merlyn Montano 05/12/2018 0.1% Solution eyes twice a Cooper O.DAlice day Pregabalin Unknown 50mg Capsules Duloxetine HCL Unknown 20mg Caps DR Part Ipratropium Unknown [place]/Albuterol Sulfate 0.5-2.5(3)mg/3ML Solution Warfarin Sodium Unknown 4mg Tablets Risedronate Sodium Unknown 35mg Tablets Acidophilus Unknown Capsules Ranitidine HCL Unknown 150mg Capsules Torsemide Unknown 20mg Tablets Amitiza Unknown 24mcg Capsules Trazodone HCL Take 1 2 Tablet Unknown 50mg Tablets By Mouth AT Bedtime Cyclobenzaprine HCL Unknown 5mg Tablets Refresh Tears every 4 hours Merlyn Montano 0.5% Solution Cooper O.Yaritza Gas-X Unknown 80mg Chewtabs Stool Softener Unknown 100mg Capsules Symbicort Unknown 80-4.5mcg/Act Aerosol Linzess Unknown 290mcg Capsules Calcium every day Unknown 500mg Tablets Xopenex HFA Jose Thompson A 45mcg/Act Aerosol M.D. Spironolactone Maghaydah, 25mg Tablets Qutaybeh M.D. Spiriva Handihaler Jose Thompson A 18mcg M.D. Capsules Oxymorphone HCL ER Take One Tablet Unknown 15mg By Mouth Every Tablets ER 12HR 12 Hours; Maximum Daily Dose = 2 Oxycodone HCL Take One Tablet Unknown 15mg Tablets By Mouth Every 4 Hours as Needed For Pain; Maximum Alee Omeprazole Jose Thompson A 20mg Capsules DR Sun Nitrostat Jose Thompson 0.4mg Tablets Sub M.D. Metoprolol Succinate ER Take One Tablet Unknown 25mg By Mouth Every Tablets ER 24HR Day Lorazepam Take One Tablet Unknown 0.5mg Tablets By Mouth Twice A Day as Needed For Anxiety; Maximum Da Levothyroxine Sodium Jose Thomposn A 25mcg M.D. Tablets Furosemide Unknown 20mg Tablets Cartia XT Unknown 120mg Caps ER 24HR Immunizations Description No Information Available Vital Signs Date Vital Result Comment 02/03/2019 1:18pm BP Systolic 117 mmHg Lwrist BP Diastolic 59 mmHg Lwrist Results Description No Information Available Procedures Date Code Description Status 09/30/2019 77764 Scanning Computerized Opthalmic Diagnostic Posterior Seg Completed Retina 09/30/2019 53079 Determination Of Refractive State Completed 09/30/2019 15199 Est Patient Comprehensive Exam Completed Medical Devices Description No Information Available Encounters Description No Information Available Assessments Date Code Description Provider 09/30/2019 H35.3131 Nonexudative age-related macular Merlyn Gamboa O.D. degeneration, bilateral, ea 09/30/2019 Z96.1 Presence of intraocular lens Merlyn Gamboa O.D. Plan of Treatment Future Appointment(s):2020 2:10 pm - Merlyn Gamboa O.D. at Carlos Fernandez MD, 09/30/2019 - Merlyn Gamboa O.D.H35.3131 Nonexudative age- related macular degeneration, bilateral, eaComments:Smoking can increase the risk of developing or worsening any eye related disease, as well as affect your overall health. If you are a smoker, we strongly recommend that you quit.If you are not a smoker, we strongly recommend that you do not start.Follow up:6 MOS AMD /OCT MAC You can expect to have your eyes dilated at your next visit. If Dr. Gamboa orders any additional testing, it may require extra time. We recommend that you bring sunglasses, as dilation drops often make you light sensitive until they wear off. We always recommend you bring someoneto drive you home if you are uncomfortable driving with your eyes dilated. If you have any questionsbefore your next visit, feel free to call our office at .L96.1 Presence of intraocular lensComments:The artificial lens implants in both eyes appear to be stable at this time. Functional Status Description No Information Available Mental Status Description No Information Available Referrals Description No Information Available
[2019-10-21 13:25] LABS: ABS Lymphocytes 0.9 10^3/ul (1.0-4.8); ABS Monocytes 0.5 10^3/ul (0-0.8); ABS Neutrophils 2.1 10^3/ul (1.5-7.7); Hematocrit 33 % (35-47); Hemoglobin 10.5 g/dL (12.0-16.0); Lymphocyte % 26.1 %; Mean Corpuscular HGB Conc 33 g/dL (31-36); Mean Corpuscular Hemoglobin 31 pg (27-31); Mean Corpuscular Volume 96 fL (80-97); Mean Platelet Volume 9.6 fL (7.4-10.4); Platelet Count 146 10^3/uL (150-450); Red Blood Count 3.38 10^6 /uL (3.70-4.87); Red Cell Distribution Width 16 % (10-15); White Blood Count 3.6 10^3/uL (3.5-10.8)
[2019-10-21] MEDS ORDERED: Lidocaine 1% MPF ** 5 ML VIAL IM ONE (13:53)
[2019-10-21] MEDS ORDERED: cefTRIAXone VIAL(*) 1,000 MG VIAL IM ONE (13:53)
[2019-10-21 14:19] VITALS: BP 113/68
== END 2019-10-21 14:17 | disposition home or self-care (01) ==
LOC: ED 12:53
DX: L03.116 Cellulitis of left lower limb (principal); L03.115 Cellulitis of right lower limb; E03.9 Hypothyroidism, unspecified; I13.0 Hypertensive heart and chronic kidney disease with heart failure and stage 1 through stage 4 chronic kidney disease, or unspecified chronic kidney disease; N18.9 Chronic kidney disease, unspecified; I50.9 Heart failure, unspecified; J44.9 Chronic obstructive pulmonary disease, unspecified; I48.91 Unspecified atrial fibrillation; I25.10 Atherosclerotic heart disease of native coronary artery without angina pectoris; E78.00 Pure hypercholesterolemia, unspecified; K21.9 Gastro-esophageal reflux disease without esophagitis; F41.9 Anxiety disorder, unspecified; F32.9 Major depressive disorder, single episode, unspecified; Z90.49 Acquired absence of other specified parts of digestive tract; Z90.710 Acquired absence of both cervix and uterus; Z90.89 Acquired absence of other organs; Z86.711 Personal history of pulmonary embolism; Z79.01 Long term (current) use of anticoagulants; Z79.890 Hormone replacement therapy; Z79.899 Other long term (current) drug therapy; Z88.0 Allergy status to penicillin; Z88.1 Allergy status to other antibiotic agents; Z88.2 Allergy status to sulfonamides; Z88.5 Allergy status to narcotic agent
CPT/HCPCS: 36415; 85025; 86140; 96372; 99282; J0696